=== PATIENT | male | born 1945 ===

== ENCOUNTER 2020-06-14 11:18 | Outpatient (REF) | payer MEDICARE, SELFPAY ==
[2020-06-18 14:21] LABS: Testosterone, Total 495 ng/dL (250-1100)
== END 2020-06-14 11:19 | disposition home or self-care (01) ==
LOC: HO.LAB 11:18
PROVIDERS: PCP Internal Medicine Geriatric Medicine; Visit Provider Urology
DX: E29.1 Testicular hypofunction (principal)
CPT/HCPCS: 84403

== ENCOUNTER → 2020-07-23 14:14 | Outpatient (BNVA) | payer MEDICARE, SELFPAY | PROVIDERS: PCP Internal Medicine Geriatric Medicine; Referring Provider Internal Medicine Geriatric Medicine; Visit Provider Urology | DX: Z76.89 Persons encountering health services in other specified circumstances (principal) | CPT/HCPCS: Q3014 ==

== ENCOUNTER → 2020-09-20 10:05 | Outpatient (BNV) | payer MEDICARE, SELFPAY | PROVIDERS: PCP Internal Medicine Geriatric Medicine; Visit Provider Internal Medicine | DX: D64.9 Anemia, unspecified (principal); D72.10 Eosinophilia, unspecified; M06.9 Rheumatoid arthritis, unspecified | CPT/HCPCS: 99212; 99213; 99214; G2211 ==

== ENCOUNTER → 2020-10-02 09:14 | Outpatient (BNVA) | payer MEDICARE, SELFPAY | PROVIDERS: PCP Internal Medicine Geriatric Medicine; Visit Provider Physician Assistant | DX: Z76.89 Persons encountering health services in other specified circumstances (principal) | CPT/HCPCS: 99212 ==

== ENCOUNTER 2020-10-09 12:22 | Outpatient (REF) | payer MEDICARE, SELFPAY ==
[2020-10-09 14:02] LABS: MANUAL DIFF FLAG NO
[2020-10-09 14:20] LABS: Basophils Absolute Auto 0.2 X10*3/uL (0.0-0.2); Basophils Percent Auto 1.1 % (0-2); Eosinophils Absolute Auto 2.7 X10*3/uL (0.0-0.4); Eosinophils Percent Auto 19.2 % (0-4); Hematocrit 34.5 % (42-52); Hemoglobin 11.2 g/dl (14.0-18.0); Imm Gran Abs Auto 0.06 X10*3/uL (0.00-0.03); Imm Gran Pct Auto 0.4 % (0.0-0.4); Lymphocytes Absolute Auto 2.7 X10*3/uL (1.2-4.9); Lymphocytes Percent Auto 18.9 % (20-40); Mean Corpuscular HGB Conc 32.5 g/dl (31.0-36.0); Mean Corpuscular Hemoglobin 27.2 pg (27.0-33.0); Mean Corpuscular Volume 83.7 fL (80-98); Mean Platelet Volume 10.6 fL (9.4-12.4); Monocytes Absolute Auto 1.1 X10*3/uL (0.1-1.2); Monocytes Percent Auto 7.8 % (2-11); Neutrophils Absolute Auto 7.4 X10*3/uL (2.0-8.3); Neutrophils Percent Auto 52.6 % (45-73); Platelet Count 320 X10*3/uL (160-400); Red Blood Count 4.12 X10*6/uL (4.60-5.80); Red Cell Distribution Width 15.2 % (11.0-16.0)
[2020-10-09 14:41] LABS: Alanine Aminotransferase 36 U/L (0-40); Albumin Level 4.4 g/dL (3.5-5.0); Alkaline Phosphatase 102 U/L (39-117); Anion Gap 15 (12-20); Aspartate Amino Transferase 30 U/L (5-37); Bilirubin Total 0.4 mg/dL (0.0-1.0); Blood Urea Nitrogen 30 mg/dL (9-16); C Reactive Protein 1.47 mg/dL (< or = 0.50); Calcium 9.8 mg/dL (8.4-10.2); Carbon Dioxide 25 mmol/L (22-29); Chloride 103 mmol/L (96-108); Estimated Glomerular Filt Rate 44; Glucose Random 234 mg/dL (60-115); Potassium 4.2 mmol/L (3.3-5.1); Rheumatoid Factor 140.6 IU/mL (<15.0); Sodium 139 mmol/L (135-145); Total Protein 7.7 g/dL (6.5-8.0)
[2020-10-09 15:13] LABS: PSA,Total (Free>4and<10) 1.54 ng/mL (0.00-4.00)
[2020-10-09 15:29] LABS: Erythrocyte Sedimentation Rate 7 MM/HR (0-15)
[2020-10-10 09:00] LABS: HBS Num1 2.55 mIU/mL (0-7.99); HBc Num1 0.09 S/CO (0.00-0.79); HBsAGNum1 0.15 S/CO (0.00-0.99); Hepatitis B Core Antibody Nonreactive (Nonreactive); Hepatitis B Surface Antigen Negative (Negative); ~Hepatitis B Surface Antibody NONREACTIVE (Nonreactive)
[2020-10-10 09:15] LABS: ~HepC Num1 0.14 S/CO (0.00-0.79); ~Hepatitis C Antibody Nonreactive (Nonreactive)
[2020-10-10 13:33] LABS: Cyclic Citrullinated Peptide <16 UNITS
[2020-10-11 08:18] LABS: Hepatitis A Antibody IgM 0.22 Index (0-0.79); ~Hepatitis A Antibody IgM Nonreactive (Nonreactive)
[2020-10-11 19:32] LABS: TS Negative Control Passed; TS Panel A 0; TS Panel B 2; TS Positive Control Passed; TSpotTB Negative (SeeBelow)
[2020-10-12 13:12] LABS: Testosterone, Total 458 ng/dL (250-1100)
== END 2020-10-09 12:23 | disposition home or self-care (01) ==
LOC: HO.LAB 12:22
PROVIDERS: Urology; PCP Internal Medicine Geriatric Medicine; Visit Provider Student in an Organized Health Care Education/Training Program
DX: M19.012 Primary osteoarthritis, left shoulder (principal); M19.011 Primary osteoarthritis, right shoulder; N40.1 Benign prostatic hyperplasia with lower urinary tract symptoms; N13.8 Other obstructive and reflux uropathy; E29.1 Testicular hypofunction; Z12.5 Encounter for screening for malignant neoplasm of prostate
CPT/HCPCS: 36415; 80053; 84153; 84403; 85025; 85652; 86140; 86200; 86431; 86481; 86704; 86706; 86709; 86803; 87340; 99202

== ENCOUNTER 2020-10-10 10:56 | Outpatient (REF) | payer MEDICARE, SELFPAY ==
--- NOTE | 2020-10-10 11:05 | XR_ITS ---
EXAMINATION: XR HAND, RIGHT CLINICAL INFORMATION: Pain in the joints. COMPARISON: None TECHNIQUE: PA, lateral, and oblique views of the right hand. FINDINGS: No fracture or malalignment. Mild joint space narrowing of the third metacarpophalangeal joint. Small marginal osteophytes are seen throughout the interphalangeal joints as well as at the third metacarpophalangeal joint. Mild diffuse soft tissue swelling. XR/XR hand RT min 3V IMPRESSION: Mild degenerative changes throughout the hand.
--- NOTE | 2020-10-10 11:05 | XR_ITS ---
EXAMINATION: XR HIP, LEFT CLINICAL INFORMATION: Pain in the joints. COMPARISON: 04/26/2014 TECHNIQUE: Two views of the left hip. FINDINGS: No fracture or dislocation. The left hip is well aligned. Mild joint space narrowing with subchondral sclerosis and small osteophytes. Corticated ossific density along the acetabular rim is unchanged from the remote prior study. The visualized left hemipelvis is intact. XR/XR hip LT min 2V IMPRESSION: Mild degenerative changes of the left hip.
--- NOTE | 2020-10-10 11:05 | XR_ITS ---
EXAMINATION: XR SHOULDER, RIGHT CLINICAL INFORMATION: Pain COMPARISON: None TECHNIQUE: AP external rotation, Grashey, scapular Y, and axillary views of the right shoulder. FINDINGS: There is no fracture or dislocation. The glenohumeral joint is well aligned. The joint space is maintained with prominent osteophyte formation. Narrowing of the subacromial space. Moderate hypertrophic degenerative change of the acromioclavicular joint. The visualized lung is clear. The visualized ribs are intact. XR/XR shoulder RT min 2V IMPRESSION: Moderate degenerative changes of the right shoulder.
== END 2020-10-10 10:57 | disposition home or self-care (01) ==
LOC: HO.LAB 10:56
PROVIDERS: PCP Internal Medicine Geriatric Medicine; Visit Provider Student in an Organized Health Care Education/Training Program
DX: M25.50 Pain in unspecified joint (principal)
CPT/HCPCS: 73030; 73130; 73502

== ENCOUNTER 2020-11-20 09:56 | Day surgery (SDC) | payer MEDICARE, SELFPAY ==
[2020-11-14 12:57] VITALS: BMI 29.7
--- NOTE | 2020-11-19 08:56 | HO.ANESPROP2 ---
Documented by User: Latonya Banerjee 11/19/20 08:58 HPI - Anesthesia Eval Consult details Narrative: 75yo M for Upper Endoscopy and Colonoscopy PMFSH Active Problems Active Problems: All Active Problems (Updated 11/14/20 @ 12:51 by Edith Sarmiento) Hypogonadism in male (Acute) Anemia (Chronic) Colonoscopy planned (Acute) Joint pain (Acute) Acid reflux (Acute) Past Medical History Medical History (Updated 11/19/20 @ 09:00 by Latonya Banerjee) Acid reflux Ambulates with cane COVID-19 vaccine series started Diabetes Eosinophilia History of depression Leukocytosis Normocytic anemia Rheumatoid arthritis Family History Family History Mother Diabetes Father No problems noted. Surgical History Surgical History (Updated 11/14/20 @ 12:49 by Edith Sarmiento) History of back surgery History of cataract extraction History of colonoscopy History of surgical removal of lesion Social History Social History (Updated 11/14/20 @ 12:47 by Edith Sarmiento) Household Members: Spouse Alcohol intake: never Smoking Status: Former smoker Use of substances other than those prescribed or required for medical reasons: No Have you been hit, kicked, punched, or otherwise hurt by someone within the past year? If so, by whom?: No Advance Directives: No Advance Directives Information Provided: No Advance Directives on File: No Meds Allergies Allergy/AdvReac Type Severity Reaction Status Date / Time aspirin Allergy Unknown Gastrointestinal Verified 10/09/20 12:26 Upset Home Medications Medication Instructions Recorded Confirmed Last Taken Type blood sugar diagnostic #10 ea 07/23/20 10/02/20 Unknown History buspirone 5 mg tablet 5 mg PO DAILY MRX1 07/23/20 11/14/20 Unknown History chlorthalidone 50 mg tablet 50 mg PO DAILY 07/23/20 11/14/20 Unknown History lisinopril 40 mg tablet 40 mg PO DAILY 07/23/20 11/14/20 Unknown History omeprazole 20 mg capsule,delayed 20 mg PO DAILY MRX1 07/23/20 11/14/20 Unknown History release pravastatin 20 mg tablet 20 mg PO DAILY 07/23/20 11/14/20 Unknown History acetaminophen 500 mg tablet 500 mg PO Q6-8H PRN 10/02/20 11/14/20 Unknown History diclofenac sodium 1 % topical gel g TOPICAL 10/02/20 10/02/20 Unknown History hzsvhqnpizrx-oayctbow-rjdhfl tablet 1 tab PO DAILY 10/02/20 11/14/20 Unknown History pregabalin 225 mg capsule 225 mg PO DAILY 10/02/20 11/14/20 Unknown History tamsulosin 0.4 mg capsule 0.4 mg PO DAILY@1700 10/02/20 11/14/20 Unknown History dulaglutide [Trulicity] 1 mg SUBCUT QWEEK 11/14/20 11/14/20 Unknown History Exam Exam Date and Time: November 19, 2020 0856 Height,Weight and Vital Signs: Height 4 ft 11 in Weight 66.678 kg Pertinent Lab Results Pertinent Lab Results: Laboratory Tests 10/09/20 10/09/20 13:30 13:30 WBC 14.0 H Hgb 11.2 L Hct 34.5 L Plt Count 320 Sodium 139 Potassium 4.2 Chloride 103 Carbon Dioxide 25 BUN 30 H Creatinine 1.54 H Assessment and Plan Assessment Anesthesia Assessment: Chart Reviewed Documented by User: Shanti Cordova 11/20/20 10:15 [facility] Past Medical History Medical History (Updated 11/19/20 @ 09:00 by Latonya Banerjee) Acid reflux Ambulates with cane COVID-19 vaccine series started Diabetes Eosinophilia History of depression Leukocytosis Normocytic anemia Rheumatoid arthritis Family History Family History Mother Diabetes Father No problems noted. Surgical History Surgical History (Updated 11/14/20 @ 12:49 by Edith Sarmiento) History of back surgery History of cataract extraction History of colonoscopy History of surgical removal of lesion Social History Social History (Updated 11/14/20 @ 12:47 by Edith Sarmiento) Household Members: Spouse Alcohol intake: never Smoking Status: Former smoker Use of substances other than those prescribed or required for medical reasons: No Have you been hit, kicked, punched, or otherwise hurt by someone within the past year? If so, by whom?: No Advance Directives: No Advance Directives Information Provided: No Advance Directives on File: No Meds Allergies Allergy/AdvReac Type Severity Reaction Status Date / Time aspirin Allergy Unknown Gastrointestinal Verified 10/09/20 12:26 Upset Home Medications Medication Instructions Recorded Confirmed Last Taken Type blood sugar diagnostic #10 ea 07/23/20 10/02/20 Unknown History buspirone 5 mg tablet 5 mg PO DAILY MRX1 07/23/20 11/14/20 Unknown History chlorthalidone 50 mg tablet 50 mg PO DAILY 07/23/20 11/14/20 Unknown History lisinopril 40 mg tablet 40 mg PO DAILY 07/23/20 11/14/20 Unknown History omeprazole 20 mg capsule,delayed 20 mg PO DAILY MRX1 07/23/20 11/14/20 Unknown History release pravastatin 20 mg tablet 20 mg PO DAILY 07/23/20 11/14/20 Unknown History acetaminophen 500 mg tablet 500 mg PO Q6-8H PRN 10/02/20 11/14/20 Unknown History diclofenac sodium 1 % topical gel g TOPICAL 10/02/20 10/02/20 Unknown History awcccnwhqanp-lbzqqxdf-frxegs tablet 1 tab PO DAILY 10/02/20 11/14/20 Unknown History pregabalin 225 mg capsule 225 mg PO DAILY 10/02/20 11/14/20 Unknown History tamsulosin 0.4 mg capsule 0.4 mg PO DAILY@1700 10/02/20 11/14/20 Unknown History dulaglutide [Trulicity] 1 mg SUBCUT QWEEK 11/14/20 11/14/20 Unknown History Exam Airway Mallampati Class: II TM Dist: >3cm Neck ROM: Full Heart: RRR Lungs: CTA BL Assessment and Plan Assessment Anesthesia Assessment: Anesthesia Plan Discussed and Chart Reviewed Final Anesthetic Review NPO: Yes ASA Class: II Final Preanesthetic Review: No Changes in Pt Med Stat and Consent Obtained/Reviewed Patient Risk: Intermediate Procedure Risk: Intermediate Anesthetic Plan Anesthetic Plan: MAC: Disposition: Standard PACU
[2020-11-20 10:20] VITALS: BP 155/77; PULSE 71; RESP 18; TEMP 36.7; O2SAT 98
[2020-11-20] MEDS: Lactated Ringers 1,000 ML 100 ML IVCONT (10:27)
[2020-11-20 10:31] LABS: Glucose, Whole Blood 146 mg/dL (60-115)
--- NOTE | 2020-11-20 10:35 | PC.NURSE ---
[facility] utilized for [facility]SS admission.
--- NOTE | 2020-11-20 11:03 | MHC.SHP ---
Pre-Procedural Eval Section B Chief Complaint: hx colonic polys,reflux disease Relevant Family History (Specify if Yes): No Relevant Social History: None Present Medications: see Short Stay Collaborative assessment Medical History: Significant History (Acid reflux Ambulates with cane COVID-19 vaccine series started Diabetes Eosinophilia History of depression Leukocytosis Normocytic anemia Rheumatoid arthritis) History of Previous Operations: Relevant previous surgery/procedure and date(s) (cataract, back surgery) Allergies: Allergies Allergy/AdvReac Type Severity Reaction Status Date / Time aspirin Allergy Unknown Gastrointestinal Verified 10/09/20 12:26 Upset Review of Systems Sugical H&P ROS: Negative: Constitution, Cardiovascular, Respiratory, Neurological, Psychiatric, Hem-Onc, Allergic/Immunologic, Gastrointestinal, Genitourinary, Musculoskeletal, Integumentary, Endocrine and Eyes/Ears/Nose/Throat Exam Surgical H&P Exam: Normal: HEENT, Normal: Heart, Normal: Lungs, Normal: Extremities, Normal: Abdomen, Normal: Skin and Normal: Neurological Plan Diagnosis/Plan: Unchanged I have reviewed the history and physical and performed a pertinent physical examination on my patient. No changes have occurred unless specified.
--- NOTE | 2020-11-20 11:04 | PM.OP ---
Brief Operative Note Date of Service: 11/20/20 Pre-op diagnosis: anemia, GERD Post-op diagnosis: same Procedure: see op note Surgeon: Haris Shah MD Anesthesia: MAC Estimated blood loss (mL): 0 Condition: stable Disposition: PACU
--- NOTE | 2020-11-20 11:05 | P.OP_ITS ---
Operative Note Operative Note Date of Service: 11/20/20 Narrative: Operative Information Procedure Description: EGD, Colonoscopy FLEXIBLE TRANSORAL UPPER GASTROINTESTINAL ENDOSCOPY AND COLONOSCOPY PROCEDURE NOTE UPPER ENDOSCOPY Consent: Indications for the procedure and potential complications of bleeding, perforation, reaction to medications and missed diagnosis were discussed with the patient and informed consent was obtained. Instrument: Olympus GIF H 190 J mid size upper endoscope Monitoring: Vital signs and clinical assessment, continuous EKG monitoring, Pulse oximetry, Carbon Dioxide monitoring and blood pressure monitoring were done throughout the procedure. Procedure: The patient was placed in the left lateral decubitis position and pre-procedure medications were administered and a bite block was placed. The endoscope was inserted into the mouth and advanced under direct vision to the third part of duodenum. A careful inspection was made as the upper endoscope was withdrawn including a retroflexed examination of the proximal stomach; Findings and interventions are described below. Findings: Larynx:normal Esophagus: GE junction at 36 cm, diaphragm hiatus at 36 cm, normal mucosa Stomach: Patchy erythema. Biopsies were obtained. Grade 2 flap valve on retroflexed examination of the cardia. Duodenum: Normal bulb and descending duodenum, bx taken Intervention: Biopsies as noted above COLONOSCOPY Instrument: Olympus variable stiffness pediatric scope 190L Colonoscopy Monitoring: Vital signs and clinical assessment, continuous EKG monitoring, Pulse oximetry, Carbon Dioxide monitoring and blood pressure monitoring were done throughout the procedure. Colon withdrawal time was 17 minutes. Procedure: The patient was placed in the left lateral decubitis position and pre-procedure medications were administered. After a digital rectal examination of the ano-rectum, the video colonoscope was inserted into the rectum and advanced through the colon to the cecum. The colonoscope was slowly withdrawn in a retrograde panoramic fashion and the colon mucosa was carefully examined including a retroflexed view of the rectum. Findings and interventions are described below. Procedure Difficulty:moderate, looping Findings: Terminal Ileum-unable to fully intubate due to lopping, only tip of TI seen appeared normal Severe hassan diverticulosis with wide mouthed tics. There appeared to be a large diverticulum in the proximal rectum as well A 9-10 mm sessile polyp removed with cold snare from transverse colon. rectum: Retroflexion with small internal hemorrhoids, grade I Anorectum - normal Colon preparation: [place]ford Bowel Preparation Scale Right colon; 1 Transverse colon: 1 Left colon; 1 (0 = Unprepared colon segment with mucosa not seen due to solid stool that cannot be cleared. 1 = Portion of mucosa of the colon segment seen, but other areas of the colon segment not well seen due to staining, residual stool and/or opaque liquid. 2 = Minor amount of residual staining, small fragments of stool and/or opaque liquid, but mucosa of colon segment seen well. 3 = Entire mucosa of colon segment seen well with no residual staining, small fragments of stool or opaque liquid) Impression and Post Procedure Diagnosis: Endoscopy Findings: gastritis Colonoscopy Findings: severe diverticulosis polyp internal hemorrhoids Plan: Await Pathology results Repeat Colonoscopy in 6-12 months with compliance with prep, review instructions, may need 2 d prep High fiber diet leaflet avoid straining at stool, epsom salts and sitz bath, anusol supps or cream prn Above findings were reviewed with the patient and relevant handouts were provided if indicated.
[2020-11-20 12:00] VITALS: BP 101/72; PULSE 63; RESP 16; TEMP 36.1; O2SAT 96
[2020-11-20 12:15] VITALS: BP 127/76; PULSE 61; RESP 16; TEMP 36.1; O2SAT 98
== END 2020-11-20 12:58 | disposition home or self-care (01) ==
PROVIDERS: PCP Internal Medicine Geriatric Medicine; Visit Provider Internal Medicine Gastroenterology
PROC: (CPT 45385; principal; 2020-11-20 11:10)
DX: Z12.11 Encounter for screening for malignant neoplasm of colon (principal); Z86.010 Personal history of colon polyps; K51.40 Inflammatory polyps of colon without complications; K57.30 Diverticulosis of large intestine without perforation or abscess without bleeding; K64.0 First degree hemorrhoids; K21.00 Gastro-esophageal reflux disease with esophagitis, without bleeding; K29.70 Gastritis, unspecified, without bleeding; K44.9 Diaphragmatic hernia without obstruction or gangrene; E11.9 Type 2 diabetes mellitus without complications; D64.9 Anemia, unspecified; M06.9 Rheumatoid arthritis, unspecified; Z79.899 Other long term (current) drug therapy; Z88.8 Allergy status to other drugs, medicaments and biological substances; Z87.891 Personal history of nicotine dependence
CPT/HCPCS: 45385; 43239; 82947; 88305; 88342

== ENCOUNTER 2020-11-25 13:00 | Outpatient (RCR) | payer MEDICARE, SELFPAY ==
--- NOTE | 2021-04-28 08:43 | MHC.PT.DC ---
[facility] [place] Office [place] Office [place] [facility] [address] Marizol Scott [address] [phone] F: [phone] F: [phone] F: [phone] F: [phone] Physical Therapy Discharge Report Diagnosis: B shoulder pain. Date of Surgery: Date of Evaluation: 10/30/20 Date of Discharge: 04/28/21 Treatments to Date: 7 Cancellations to Date: 0 No Shows to Date: 0 Discharge Status: Improved Function Independent with HEP Discharge Summary: Pt had made improvements of his shoulder pain with some PM pain persisting; Pt though did not attend his final visit for DC assessment. Electronically signed by: Edd Leo PT. Please sign and return to therapist. Thank you for your referral.
== END 2021-04-28 08:44 | disposition home or self-care (01) ==
LOC: HO.PTCHIC 13:00
PROVIDERS: PCP Internal Medicine Geriatric Medicine; Visit Provider Student in an Organized Health Care Education/Training Program
DX: M25.50 Pain in unspecified joint (principal)
CPT/HCPCS: 97110; 97161

== ENCOUNTER → 2020-11-29 13:25 | Outpatient (BNVA) | payer MEDICARE, SELFPAY | PROVIDERS: PCP Internal Medicine Geriatric Medicine; Visit Provider Student in an Organized Health Care Education/Training Program | DX: M25.50 Pain in unspecified joint (principal); R76.8 Other specified abnormal immunological findings in serum | CPT/HCPCS: 99212 ==

== ENCOUNTER → 2020-12-03 13:19 | Outpatient (BNVA) | payer MEDICARE, SELFPAY | PROVIDERS: PCP Internal Medicine Geriatric Medicine; Visit Provider Physician Assistant | DX: K21.9 Gastro-esophageal reflux disease without esophagitis (principal); K59.09 Other constipation; K22.70 Barrett's esophagus without dysplasia | CPT/HCPCS: 99212 ==

== ENCOUNTER 2021-03-04 09:45 | Outpatient (REF) | payer MEDICARE, SELFPAY ==
[2021-03-04 10:29] LABS: Hematocrit 34.8 % (42-52); Mean Corpuscular HGB Conc 31.6 g/dl (31.0-36.0); Mean Corpuscular Hemoglobin 25.6 pg (27.0-33.0); Mean Corpuscular Volume 80.9 fL (80-98); Mean Platelet Volume 9.9 fL (9.4-12.4); Platelet Count 350 X10*3/uL (160-400); Red Cell Distribution Width 14.4 % (11.0-16.0); White Blood Count 12.2 X10*3/uL (4.8-10.8)
[2021-03-04 11:18] LABS: Prostate Specific Antigen 2.18 ng/mL (<0.05-4.0)
== END 2021-03-04 09:46 | disposition home or self-care (01) ==
LOC: HO.10HDL 09:45
PROVIDERS: Visit Provider Urology
DX: Z12.5 Encounter for screening for malignant neoplasm of prostate (principal); E29.1 Testicular hypofunction
CPT/HCPCS: 36415; 84153; 85027

== ENCOUNTER → 2021-03-11 14:32 | Outpatient (BNVA) | payer MEDICARE, SELFPAY | PROVIDERS: PCP Internal Medicine Geriatric Medicine; Visit Provider Urology | DX: Z13.89 Encounter for screening for other disorder (principal) | CPT/HCPCS: 99212 ==

== ENCOUNTER 2021-03-21 09:28 | Outpatient (REF) | payer MEDICARE, SELFPAY ==
--- NOTE | ~2021-03-21 | XR_ITS ---
EXAMINATION: XR KNEE STANDING, BILATERAL XR KNEE, RIGHT CLINICAL INFORMATION: Right knee pain. COMPARISON: None TECHNIQUE: AP bilateral knee 1 view. Right knee 2 views. FINDINGS: AP BILATERAL KNEE: There is loss of medial compartment joint space both knees. No visible acute fracture, dislocation or bony erosive changes. The soft tissues are normal. RIGHT KNEE: There are fyoxi-lt-ogcewgzu-sized anterior superior and anterior inferior enthesophytes along the patella and small spurring along posterior superior patella. There is mild joint effusion. No loose body seen. No fracture or dislocation. XR/XR knee RT 2V IMPRESSION: Mild degenerative changes medial compartment both knees. There is parapatellar, peripatellar enthesophytes with mild superior joint effusion. No loose bodies, acute fracture or dislocation seen.
--- NOTE | ~2021-03-21 | XR_ITS ---
EXAMINATION: XR KNEE STANDING, BILATERAL XR KNEE, RIGHT CLINICAL INFORMATION: Right knee pain. COMPARISON: None TECHNIQUE: AP bilateral knee 1 view. Right knee 2 views. FINDINGS: AP BILATERAL KNEE: There is loss of medial compartment joint space both knees. No visible acute fracture, dislocation or bony erosive changes. The soft tissues are normal. RIGHT KNEE: There are avzxn-as-lwljbpfo-sized anterior superior and anterior inferior enthesophytes along the patella and small spurring along posterior superior patella. There is mild joint effusion. No loose body seen. No fracture or dislocation. XR/XR knee standing BI IMPRESSION: Mild degenerative changes medial compartment both knees. There is parapatellar, peripatellar enthesophytes with mild superior joint effusion. No loose bodies, acute fracture or dislocation seen.
== END 2021-03-21 09:29 | disposition home or self-care (01) ==
LOC: HO.HOSX 09:28
PROVIDERS: Visit Provider Orthopaedic Surgery
DX: M25.561 Pain in right knee (principal)
CPT/HCPCS: 73560; 73565; 99202

== ENCOUNTER 2021-05-09 18:26 | Emergency (ER) | payer MEDICARE, SELFPAY ==
--- NOTE | ~2021-05-09 | CT_ITS ---
EXAMINATION: CT HEAD WITHOUT CONTRAST CLINICAL INFORMATION: Acute dizziness COMPARISON: 03/24/2016 TECHNIQUE: Contiguous axial imaging was performed from the skull base to vertex without intravenous administration of contrast. This CT examination was performed using dose optimization techniques as appropriate, variously including the following: *Automated exposure control *Adjustment of mA and/or kV according to patient size (this includes techniques or standardized protocols for targeted exams where dose is matched to indication/reason for exam; i.e. extremities or head) *Use of iterative reconstruction technique DLP: 667 mGy-cm FINDINGS: There is no evidence of acute intracranial hemorrhage or territorial infarction. No abnormal mass effect or midline shift is seen. Reyes to white matter differentiation is well preserved. No extra-axial fluid collections are identified. The ventricles are normal in size. There is no abnormal attenuation within the brain parenchyma. The osseous structures and soft tissues are normal. The mastoid air cells and visualized portions of the paranasal sinuses are well aerated. CT/CT head/brain wo con IMPRESSION: No acute intracranial pathology.
[2021-05-09 18:37] VITALS: BP 125/61; PULSE 66; RESP 18; TEMP 36.9; O2SAT 97; BMI 27.3
[2021-05-09 18:56] LABS: Glucose, Whole Blood 169 mg/dL (60-115)
--- NOTE | 2021-05-09 20:41 | ED_ITS ---
HPI - Dizziness General Chief Complaint: Dizziness Stated Complaint: dizzines Time Seen by Provider: 05/09/21 20:41 Source: patient and family Mode of arrival: ambulatory Limitations: no limitations History of Present Illness HPI Narrative: Patient with history of vertigo few years ago complaining of dizziness for last 3 days off and on specially when ambulate and move his head to the right side no nausea no vomiting no headache no fever or chills no history of fall no tinnitus or earache Related Data Home Medications Medication Instructions Recorded Confirmed blood sugar diagnostic #10 ea 07/23/20 04/30/21 buspirone 5 mg tablet 5 mg PO DAILY MRX1 07/23/20 04/30/21 chlorthalidone 50 mg tablet 50 mg PO DAILY 07/23/20 04/30/21 lisinopril 40 mg tablet 40 mg PO DAILY 07/23/20 04/30/21 omeprazole 20 mg capsule,delayed 20 mg PO DAILY MRX1 07/23/20 04/30/21 release pravastatin 20 mg tablet 20 mg PO DAILY 07/23/20 04/30/21 acetaminophen 500 mg tablet 500 mg PO Q6-8H PRN 10/02/20 04/30/21 diclofenac sodium 1 % topical gel 1 g TOPICAL DAILY 10/02/20 04/30/21 quwfkccdgedb-suihoppc-zbmjeo tablet 1 tab PO DAILY 10/02/20 04/30/21 pregabalin 225 mg capsule 225 mg PO DAILY 10/02/20 04/30/21 dulaglutide 0.75 mg/0.5 mL 1 mg SUBCUT QWEEK 11/14/20 04/30/21 subcutaneous pen injector (Trulicity) dulaglutide 1.5 mg/0.5 mL 1.5 mg SUBCUT QWEEK 11/29/20 04/30/21 subcutaneous pen injector (Trulicity) aspirin 81 mg tablet,delayed 81 mg PO DAILY 03/11/21 04/30/21 release clotrimazole 1 % topical cream 1 appl TOPICAL BEDTIME 03/11/21 04/30/21 fluoride (sodium) 1.1 % dental 1.1 appl PO DAILY 03/21/21 04/30/21 paste Previous Rx's Medication Instructions Recorded bisacodyl 5 mg tablet,delayed 10 mg PO ONCE 1 Days #2 tab 12/03/20 release (Dulcolax (bisacodyl)) docusate sodium 100 mg capsule 200 mg PO BEDTIME #60 cap 12/03/20 (Colace) pantoprazole 40 mg tablet,delayed 40 mg PO DAILY 30 Days #30 tab 12/03/20 release polyethylene glycol 3350 17 17 g PO DAILY #510 g 12/03/20 gram/dose oral powder (Miralax) polyethylene glycol 3350 17 238 g PO ONCE 1 Days #238 g 12/03/20 gram/dose oral powder (Miralax) tamsulosin 0.4 mg capsule 0.4 mg PO BID 90 Days #180 cap 02/21/21 testosterone 20.25 mg/1.25 gram 40.5 mg TRANSDERMAL DAILY 30 Days 03/11/21 (1.62 %) transdermal gel pump #75 g ferrous sulfate 325 mg (65 mg 325 mg PO DAILY #60 tab 04/30/21 iron) tablet (Iron (ferrous sulfate)) meclizine 25 mg tablet 25 mg PO TID PRN #20 tab 05/09/21 Allergies Allergy/AdvReac Type Severity Reaction Status Date / Time aspirin AdvReac Unknown Gastrointestinal Verified 05/09/21 18:37 Upset Review of Systems Review of Systems: Yes all other systems are reviewed and are negative PMFSH Past Medical History Medical History Acid reflux Ambulates with cane Chronic constipation COVID-19 vaccine series started Diabetes Eosinophilia History of depression Leukocytosis Normocytic anemia Rheumatoid arthritis Surgical History History of back surgery History of cataract extraction History of colonoscopy History of surgical removal of lesion Family History Family History Mother Diabetes Father No problems noted. Social History Social History Household Members: Spouse Alcohol intake: never Advance Directives: No Advance Directives Information Provided: No Current occupational status: retired Physical Exam Vital Signs: Vital Signs: Last Vital Signs Temp 98.4 F 05/09/21 18:37 Pulse 66 05/09/21 18:37 Resp 18 05/09/21 18:37 BP 125/61 05/09/21 18:37 Pulse Ox 97 05/09/21 18:37 Body Mass Index 27.3 Appearance: Alert. Oriented X3. No acute distress. Eyes: PERRLA, No Nystagmus ENT: Pharynx normal. Oral Mucosa moist Neck: Normal inspection. Neck supple. CVS: Normal heart rate and rhythm. Pulses normal. Respiratory: No respiratory distress. Equal air entry bilateral, no wheezing/rales/rhonchi Abdomen: Soft and nontender. Bowel sounds are present, no mass palpable, no CVA tenderness Skin: Skin warm and dry. Normal skin color. Normal skin turgor. Extremities: No lower extremity edema. No calf tenderness Neuro: Oriented X 3. No motor deficit. No sensory deficit.No cerebellar signs , cranial nerves II-XII intact MDM - Dizziness MDM Narrative Medical decision making narrative: Patient had CT is negative able to ambulate steady gait after meclizine dizziness improved clinically patient has BPPV Differential Diagnosis Differential diagnosis: Likely benign paroxysmal positional vertigo Lab Data Labs: Lab Results 05/09/21 Range/Units 18:50 POC Glucose 169 H (60-115) mg/dL Discharge Plan Discharge Clinical Impression: Benign paroxysmal positional vertigo Patient Disposition: Home, Self-Care Instructions: Benign Paroxysmal Positional Vertigo (ED) Additional Instructions: Care and cautions as advised Take meclizine 1 tablet every 8 hours as needed for severe dizziness Prescriptions: New meclizine 25 mg tablet 25 mg PO TID PRN (Reason: dizziness) Qty: 20 RF: 0 No Action tamsulosin 0.4 mg capsule 0.4 mg PO BID 90 Days Qty: 180 RF: 2 testosterone 20.25 mg/1.25 gram (1.62 %) gel in metered-dose pump 40.5 mg transdermal DAILY 30 Days Qty: 75 RF: 5 ferrous sulfate [Iron (ferrous sulfate)] 325 mg (65 mg iron) Tablet 325 mg PO DAILY Qty: 60 RF: 3 Trulicity 0.75 mg/0.5 mL pen injector 1 mg subcut QWEEK RF: 0 diclofenac sodium 1 % gel 1 g topical DAILY RF: 0 pregabalin 225 mg capsule 225 mg PO DAILY RF: 0 Cerovite Senior Tablet 1 tab PO DAILY RF: 0 acetaminophen 500 mg tablet 500 mg PO Q6-8H PRN (Reason: Pain) RF: 0 aspirin 81 mg tablet,delayed release (DR/EC) 81 mg PO DAILY RF: 0 clotrimazole 1 % cream 1 appl topical BEDTIME RF: 0 fluoride (sodium) 1.1 % paste 1.1 appl PO DAILY RF: 0 pravastatin 20 mg tablet 20 mg PO DAILY RF: 0 lisinopril 40 mg tablet 40 mg PO DAILY RF: 0 omeprazole 20 mg capsule,delayed release(DR/EC) 20 mg PO DAILY MRX1 RF: 0 chlorthalidone 50 mg tablet 50 mg PO DAILY RF: 0 (DME) FreeStyle Lite Strips Strip See Rx Instructions ea Not Applicable .MEDSUPPLY Qty: 10 RF: 0 buspirone 5 mg tablet 5 mg PO DAILY MRX1 RF: 0 bisacodyl [Dulcolax (bisacodyl)] 5 mg tablet,delayed release (DR/EC) 10 mg PO ONCE 1 Days Qty: 2 RF: 0 polyethylene glycol 3350 [Miralax] 17 gram/dose powder 238 g PO ONCE 1 Days Qty: 238 RF: 0 pantoprazole 40 mg tablet,delayed release (DR/EC) 40 mg PO DAILY 30 Days Qty: 30 RF: 11 polyethylene glycol 3350 [Miralax] 17 gram/dose powder 17 g PO DAILY Qty: 510 RF: 2 docusate sodium [Colace] 100 mg capsule 200 mg PO BEDTIME Qty: 60 RF: 5 Trulicity 1.5 mg/0.5 mL pen injector 1.5 mg subcut QWEEK RF: 0 Interventions: ED Discharge Assessment Last Done: 05/09/21 23:07 Discharge Date/Time: 05/09/21 23:10 Print Language: Tristanian
[2021-05-09] MEDS: Meclizine HCl 25 MG TABLET 50 MG PO (21:16)
== END 2021-05-09 23:10 | disposition home or self-care (01) ==
PROVIDERS: Emergency Provider Internal Medicine; PCP Internal Medicine Geriatric Medicine
DX: H81.10 Benign paroxysmal vertigo, unspecified ear (principal); E11.9 Type 2 diabetes mellitus without complications; Z79.82 Long term (current) use of aspirin; Z79.4 Long term (current) use of insulin; Z79.899 Other long term (current) drug therapy
CPT/HCPCS: 70450; 82947; 99284

== ENCOUNTER 2021-06-03 08:33 | Outpatient (REF) | payer MEDICARE, SELFPAY | END 2021-06-03 08:34 | disposition home or self-care (01) | LOC: HO.HOSX 08:33 | PROVIDERS: Visit Provider Nurse Practitioner Family | DX: M25.461 Effusion, right knee (principal); M25.50 Pain in unspecified joint; R76.8 Other specified abnormal immunological findings in serum | CPT/HCPCS: 20610; 87071; 87073; 87205; 89060; 99202; 99212; J1040 ==

== ENCOUNTER 2021-08-14 09:40 | Outpatient (REF) | payer MEDICARE, SELFPAY | END 2021-08-14 09:41 | disposition home or self-care (01) | LOC: HO.LNP 09:40 | PROVIDERS: PCP Internal Medicine Geriatric Medicine; Visit Provider Physician Assistant | DX: M25.461 Effusion, right knee (principal); M25.561 Pain in right knee | CPT/HCPCS: 20610; 87071; 87073; 87205; 89060; 99212; J1020 ==

== ENCOUNTER 2021-08-27 11:00 | Outpatient (RCR) | payer MEDICARE, SELFPAY | END 2021-10-31 09:45 | disposition home or self-care (01) | LOC: HO.PTCHIC 11:00 | PROVIDERS: PCP Internal Medicine Geriatric Medicine; Visit Provider Emergency Medicine | DX: M25.561 Pain in right knee (principal) | CPT/HCPCS: 97110; 97140; 97162 ==

== ENCOUNTER 2021-09-16 13:46 | Outpatient (REF) | payer MEDICARE, SELFPAY ==
[2021-09-16 15:00] LABS: MANUAL DIFF FLAG NO
[2021-09-16 15:08] LABS: Hemoglobin 11.6 g/dl (14.0-18.0); Mean Platelet Volume 9.5 fL (9.4-12.4)
[2021-09-16 15:15] LABS: Basophils Absolute Auto 0.1 X10*3/uL (0.0-0.2); Basophils Percent Auto 0.9 % (0-2); Eosinophils Absolute Auto 0.6 X10*3/uL (0.0-0.4); Eosinophils Percent Auto 5.9 % (0-4); Hematocrit 36.8 % (42.0-52.0); Imm Gran Abs Auto 0.05 X10*3/uL (0.00-0.03); Imm Gran Pct Auto 0.5 % (0.0-0.4); Lymphocytes Absolute Auto 1.8 X10*3/uL (1.2-4.9); Lymphocytes Percent Auto 17.2 % (20-40); Mean Corpuscular HGB Conc 31.5 g/dl (31.0-36.0); Mean Corpuscular Hemoglobin 25.7 pg (27.0-33.0); Mean Corpuscular Volume 81.6 fL (80.0-98.0); Monocytes Absolute Auto 0.9 X10*3/uL (0.1-1.2); Monocytes Percent Auto 9.3 % (2-11); Neutrophils Absolute Auto 6.7 x10*3/uL (2.0-8.3); Neutrophils Percent Auto 66.2 % (45-73); Platelet Count 387 X10*3/uL (160-400); Red Blood Count 4.51 X10*6/uL (4.60-5.80); White Blood Count 10.2 X10*3/uL (4.8-10.8)
[2021-09-16 15:35] LABS: Alanine Aminotransferase 14 U/L (0-40); Albumin Level 4.2 g/dL (3.5-5.0); Alkaline Phosphatase 92 U/L (39-117); Anion Gap 12 (12-20); Aspartate Amino Transferase 15 U/L (5-37); Bilirubin Total 0.3 mg/dL (0.0-1.0); Blood Urea Nitrogen 22 mg/dL (9-16); C Reactive Protein 1.51 mg/dL (< or = 0.50); Calcium 9.6 mg/dL (8.4-10.2); Carbon Dioxide 24 mmol/L (22-29); Chloride 108 mmol/L (96-108); Estimated Glomerular Filt Rate 48; Glucose Random 193 mg/dL (60-115); Potassium 4.2 mmol/L (3.3-5.1); Sodium 140 mmol/L (135-145); Total Protein 7.6 g/dL (6.5-8.0)
[2021-09-16 15:40] LABS: Uric Acid 6.4 mg/dL (3.4-7.0)
[2021-09-16 16:09] LABS: Erythrocyte Sedimentation Rate 23 MM/HR (0-15)
[2021-09-22 11:41] LABS: Testosterone, Total 125 ng/dL (250-1100)
== END 2021-09-16 13:47 | disposition home or self-care (01) ==
LOC: HO.LAB 13:46
PROVIDERS: Absent Provider Urology; PCP Internal Medicine Geriatric Medicine; Visit Provider Nurse Practitioner Family
DX: Z12.5 Encounter for screening for malignant neoplasm of prostate (principal); M1A.0610 Idiopathic chronic gout, right knee, without tophus (tophi); E29.1 Testicular hypofunction; R76.8 Other specified abnormal immunological findings in serum
CPT/HCPCS: 36415; 80053; 84153; 84403; 84550; 85025; 85027; 85652; 86140; 99212

== ENCOUNTER → 2021-10-01 12:17 | Outpatient (BNVA) | payer MEDICARE, SELFPAY | PROVIDERS: PCP Internal Medicine Geriatric Medicine; Visit Provider Urology | DX: E29.1 Testicular hypofunction (principal) | CPT/HCPCS: Q3014 ==

== ENCOUNTER 2021-10-16 09:32 | Outpatient (REF) | payer MEDICARE, SELFPAY ==
[2021-10-16 10:39] LABS: MANUAL DIFF FLAG NO
[2021-10-16 11:09] LABS: Basophils Absolute Auto 0.1 X10*3/uL (0.0-0.2); Basophils Percent Auto 0.7 % (0-2); Eosinophils Absolute Auto 1.5 X10*3/uL (0.0-0.4); Eosinophils Percent Auto 14.2 % (0-4); Hematocrit 39.3 % (42.0-52.0); Hemoglobin 12.3 g/dl (14.0-18.0); Imm Gran Abs Auto 0.05 X10*3/uL (0.00-0.03); Imm Gran Pct Auto 0.5 % (0.0-0.4); Lymphocytes Absolute Auto 2.4 X10*3/uL (1.2-4.9); Lymphocytes Percent Auto 22.1 % (20-40); Mean Corpuscular HGB Conc 31.3 g/dl (31.0-36.0); Mean Corpuscular Hemoglobin 25.5 pg (27.0-33.0); Mean Corpuscular Volume 81.5 fL (80.0-98.0); Mean Platelet Volume 9.5 fL (9.4-12.4); Monocytes Absolute Auto 0.8 X10*3/uL (0.1-1.2); Monocytes Percent Auto 7.6 % (2-11); Neutrophils Absolute Auto 5.9 x10*3/uL (2.0-8.3); Neutrophils Percent Auto 54.9 % (45-73); Platelet Count 338 X10*3/uL (160-400); Red Blood Count 4.82 X10*6/uL (4.60-5.80); Red Cell Distribution Width 16.9 % (11.0-16.0); White Blood Count 10.7 X10*3/uL (4.8-10.8)
[2021-10-16 11:37] LABS: Alanine Aminotransferase 15 U/L (0-40); Albumin Level 4.2 g/dL (3.5-5.0); Alkaline Phosphatase 87 U/L (39-117); Anion Gap 13 (12-20); Aspartate Amino Transferase 16 U/L (5-37); Bilirubin Total 0.3 mg/dL (0.0-1.0); Blood Urea Nitrogen 22 mg/dL (9-16); Calcium 9.6 mg/dL (8.4-10.2); Carbon Dioxide 25 mmol/L (22-29); Chloride 105 mmol/L (96-108); Estimated Glomerular Filt Rate 57; Glucose Random 154 mg/dL (60-115); Potassium 4.5 mmol/L (3.3-5.1); Sodium 138 mmol/L (135-145); Total Protein 7.4 g/dL (6.5-8.0); Uric Acid 4.3 mg/dL (3.4-7.0)
== END 2021-10-16 09:33 | disposition home or self-care (01) ==
LOC: HO.LAB 09:32
PROVIDERS: Urology; PCP Internal Medicine Geriatric Medicine; Visit Provider Nurse Practitioner Family
DX: M1A.0610 Idiopathic chronic gout, right knee, without tophus (tophi) (principal); R76.8 Other specified abnormal immunological findings in serum; M25.50 Pain in unspecified joint
CPT/HCPCS: 36415; 80053; 84550; 85025; 85027; 99212

== ENCOUNTER → 2021-10-20 13:57 | Outpatient (BNVA) | payer OTHER, SELFPAY | PROVIDERS: PCP Internal Medicine Geriatric Medicine; Referring Provider Internal Medicine Geriatric Medicine; Visit Provider Physician Assistant | DX: K59.09 Other constipation (principal); K21.9 Gastro-esophageal reflux disease without esophagitis | CPT/HCPCS: 99212 ==

== ENCOUNTER 2021-11-20 10:55 | Outpatient (REF) | payer MEDICARE, SELFPAY ==
[2021-11-20 14:03] LABS: Alanine Aminotransferase 17 U/L (0-40); Albumin Level 4.3 g/dL (3.5-5.0); Alkaline Phosphatase 102 U/L (39-117); Anion Gap 15 (12-20); Aspartate Amino Transferase 15 U/L (5-37); Bilirubin Total 0.2 mg/dL (0.0-1.0); Blood Urea Nitrogen 23 mg/dL (9-16); Calcium 9.8 mg/dL (8.4-10.2); Carbon Dioxide 24 mmol/L (22-29); Chloride 104 mmol/L (96-108); Estimated Glomerular Filt Rate 51; Glucose Random 187 mg/dL (60-115); Potassium 4.4 mmol/L (3.3-5.1); Sodium 139 mmol/L (135-145); Total Protein 7.7 g/dL (6.5-8.0); Uric Acid 4.5 mg/dL (3.4-7.0)
== END 2021-11-20 10:56 | disposition home or self-care (01) ==
LOC: HO.XRAY 10:55
PROVIDERS: PCP Internal Medicine Geriatric Medicine; Visit Provider Nurse Practitioner Family
DX: M1A.0610 Idiopathic chronic gout, right knee, without tophus (tophi) (principal); R76.8 Other specified abnormal immunological findings in serum; M25.512 Pain in left shoulder
CPT/HCPCS: 36415; 80053; 84550; 99212

== ENCOUNTER 2021-11-21 14:00 | Outpatient (REF) | payer MEDICARE, SELFPAY ==
--- NOTE | ~2021-11-21 | XR_ITS ---
EXAMINATION: XR SHOULDER, LEFT CLINICAL INFORMATION: Pain COMPARISON: None TECHNIQUE: AP external rotation, Grashey, scapular Y, and axillary views of the left shoulder. FINDINGS: There is mild loss of glenohumeral joint space with inferior periarticular spurring. No visible fracture or dislocation seen. A small enthesophyte along the greater tuberosity. There is mild loss of left AC joint with superior spurring. No acute fracture or dislocation seen. The soft tissues are normal. XR/XR shoulder LT min 2V IMPRESSION: Mild degenerative changes left AC joint and left glenohumeral joint. No visible acute fracture or dislocation seen.
== END 2021-11-21 14:01 | disposition home or self-care (01) ==
LOC: HO.XRAY 14:00
PROVIDERS: PCP Internal Medicine Geriatric Medicine; Visit Provider Nurse Practitioner Family
DX: M25.512 Pain in left shoulder (principal)
CPT/HCPCS: 73030

== ENCOUNTER 2022-01-22 08:50 | Day surgery (SDC) | payer MEDICARE, SELFPAY ==
[2022-01-19 10:57] VITALS: BMI 28.5
--- NOTE | 2022-01-21 09:34 | P.CONAN_ITS ---
Documented by User: Latonya Banerjee NP 01/21/22 09:36 HPI - Anesthesia Eval Consult details Narrative: 76yo M for Colonoscopy s/p EGD and [place] 11/2020 with MAC (had poor prep) [facility] Active Problems Active Problems: All Active Problems (Updated 10/22/21 @ 10:42 by Laura Cid PA-C) Hypogonadism in male (Acute) Anemia (Chronic) Colonoscopy planned (Acute) Joint pain (Acute) Elevated rheumatoid factor (Acute) Barretts esophagus (Acute) Right knee pain (Acute) Effusion, right knee (Acute) Chronic gout of right knee (Acute) Chronic constipation (Acute) Acid reflux (Acute) Past Medical History Medical History Acid reflux Ambulates with cane Chronic constipation COVID-19 vaccine series started Diabetes Eosinophilia History of depression Leukocytosis Normocytic anemia Rheumatoid arthritis Family History Family History Mother Diabetes Father No problems noted. Surgical History Surgical History (Updated 01/19/22 @ 10:58 by Enid Treviño RN) History of back surgery History of cataract extraction History of colonoscopy History of esophagogastroduodenoscopy (EGD) History of surgical removal of lesion Social History Social History Household Members: Spouse Housing: House Alcohol intake: never Patient Tobacco Use Status: Former Tobacco user e-Cigarette/Vaping Use: Never Used Use of substances other than those prescribed or required for medical reasons: No Are you DNR?: No Advance Directives: No Advance Directives Information Provided: Yes Current occupational status: retired Current occupation: rt handed Meds Allergies Allergy/AdvReac Type Severity Reaction Status Date / Time No Known Allergies Allergy Verified 11/20/21 11:33 Home Medications Medication Instructions Recorded Confirmed Last Taken Type blood sugar diagnostic #10 ea 07/23/20 11/20/21 Unknown History chlorthalidone 50 mg tablet 50 mg PO DAILY 07/23/20 01/19/22 Unknown History lisinopril 40 mg tablet 40 mg PO DAILY 07/23/20 01/19/22 Unknown History pravastatin 20 mg tablet 20 mg PO DAILY 07/23/20 01/19/22 Unknown History acetaminophen 500 mg tablet 500 mg PO Q6-8H PRN 10/02/20 01/19/22 Unknown History diclofenac sodium 1 % topical gel 1 g TOPICAL DAILY 10/02/20 01/19/22 Unknown History hdqhnndgkicn-mlmgnuqi-hjkdgo tablet 1 tab PO DAILY 10/02/20 11/20/21 Unknown History dulaglutide 0.75 mg/0.5 mL 1 mg SUBCUT QWEEK 11/14/20 11/20/21 Unknown History subcutaneous pen injector (Trulicity) dulaglutide 1.5 mg/0.5 mL 1.5 mg SUBCUT QWEEK 11/29/20 01/19/22 Unknown History subcutaneous pen injector (Trulicity) clotrimazole 1 % topical cream 1 appl TOPICAL BEDTIME 03/11/21 01/19/22 Unknown History fluoride (sodium) 1.1 % dental 1.1 appl PO DAILY 03/21/21 01/19/22 Unknown History paste buspirone 5 mg tablet 5 mg PO TID 10/01/21 01/19/22 Unknown History empagliflozin 10 mg tablet 10 mg PO DAILY 10/01/21 01/19/22 Unknown History (Jardiance) multivitamin-iron sulfate 15 1 tab PO DAILY 10/01/21 01/19/22 Unknown History mg-folic acid 400 mcg tablet (Tab-A-Mark Multivitamin w-iron) Exam Exam Date and Time: January 21, 2022 0934 Height,Weight and Vital Signs: Height 4 ft 11 in Weight 63.957 kg Pertinent Lab Results Pertinent Lab Results: Laboratory Tests 10/16/21 11/20/21 10:38 12:42 WBC 10.7 Hgb 12.3 L Hct 39.3 L Plt Count 338 Sodium 139 Potassium 4.4 Chloride 104 Carbon Dioxide 24 BUN 23 H Creatinine 1.37 Assessment and Plan Assessment Anesthesia Assessment: Chart Reviewed Documented by User: Miguelito Aguilar MD 01/22/22 11:02 [facility] Past Medical History Medical History Acid reflux Ambulates with cane Chronic constipation COVID-19 vaccine series started Diabetes Eosinophilia History of depression Leukocytosis Normocytic anemia Rheumatoid arthritis Family History Family History Mother Diabetes Father No problems noted. Family history of problems with anesthesia: No Surgical History Surgical History (Updated 01/19/22 @ 10:58 by Enid Treviño RN) History of back surgery History of cataract extraction History of colonoscopy History of esophagogastroduodenoscopy (EGD) History of surgical removal of lesion History of Problems with Anesthesia: No Social History Social History Household Members: Spouse Housing: House Alcohol intake: never Patient Tobacco Use Status: Former Tobacco user e-Cigarette/Vaping Use: Never Used Use of substances other than those prescribed or required for medical reasons: No Are you DNR?: No Advance Directives: No Advance Directives Information Provided: Yes Current occupational status: retired Current occupation: rt handed Meds Allergies Allergy/AdvReac Type Severity Reaction Status Date / Time No Known Allergies Allergy Verified 11/20/21 11:33 Home Medications Medication Instructions Recorded Confirmed Last Taken Type blood sugar diagnostic #10 ea 07/23/20 11/20/21 Unknown History chlorthalidone 50 mg tablet 50 mg PO DAILY 07/23/20 01/19/22 Unknown History lisinopril 40 mg tablet 40 mg PO DAILY 07/23/20 01/19/22 Unknown History pravastatin 20 mg tablet 20 mg PO DAILY 07/23/20 01/19/22 Unknown History acetaminophen 500 mg tablet 500 mg PO Q6-8H PRN 10/02/20 01/19/22 Unknown History diclofenac sodium 1 % topical gel 1 g TOPICAL DAILY 10/02/20 01/19/22 Unknown History ieohugrrcbzs-opohshkb-bvnbwt tablet 1 tab PO DAILY 10/02/20 11/20/21 Unknown History dulaglutide 0.75 mg/0.5 mL 1 mg SUBCUT QWEEK 11/14/20 11/20/21 Unknown History subcutaneous pen injector ([facility]) dulaglutide 1.5 mg/0.5 mL 1.5 mg SUBCUT QWEEK 11/29/20 01/19/22 Unknown History subcutaneous pen injector (Trulicity) clotrimazole 1 % topical cream 1 appl TOPICAL BEDTIME 03/11/21 01/19/22 Unknown History fluoride (sodium) 1.1 % dental 1.1 appl PO DAILY 03/21/21 01/19/22 Unknown History paste buspirone 5 mg tablet 5 mg PO TID 10/01/21 01/19/22 Unknown History empagliflozin 10 mg tablet 10 mg PO DAILY 10/01/21 01/19/22 Unknown History (Jardiance) multivitamin-iron sulfate 15 1 tab PO DAILY 10/01/21 01/19/22 Unknown History mg-folic acid 400 mcg tablet (Tab-A-Mark Multivitamin w-iron) Exam Airway Loose/Missing/Broken Teeth: Yes Assessment and Plan Assessment Anesthesia Assessment: Anesthesia Plan Discussed Final Anesthetic Review Family History of Problems with Anesthesia: No History of Problems with Anesthesia: No NPO: Yes ASA Class: II Final Preanesthetic Review: No Changes in Pt Med Stat, Meds/Allgs Chart Reviewed, Consent Obtained/Reviewed and Anes Risks/Benef Reviewed Patient Risk: Low Procedure Risk: Low Anesthetic Plan Anesthetic Plan: MAC: Disposition: Standard PACU
[2022-01-22 08:56] VITALS: BP 147/67; PULSE 69; RESP 16; TEMP 36.2; O2SAT 97
[2022-01-22 09:03] LABS: Glucose, Whole Blood 113 mg/dL (60-115)
[2022-01-22 09:09] VITALS: BMI 29.5
[2022-01-22] MEDS: Lactated Ringers 1,000 ML 100 ML IVCONT (09:19)
--- NOTE | 2022-01-22 09:57 | MHC.SHP ---
Pre-Procedural Eval Section A Date of Service: 01/22/22 Section B Chief Complaint: anemia Details of Present Illness: prior colonoscopy with poor prep Relevant Family History (Specify if Yes): No Relevant Social History: None Present Medications: see Short Stay Collaborative assessment Medical History: Significant History (Acid reflux Ambulates with cane Chronic constipation COVID-19 vaccine series started Diabetes Eosinophilia History of depression Leukocytosis Normocytic anemia Rheumatoid arthritis) History of Previous Operations: Relevant previous surgery/procedure and date(s) (History of back surgery History of cataract extraction History of colonoscopy History of esophagogastroduodenoscopy (EGD) History of surgical removal of lesion) Allergies: Allergies Allergy/AdvReac Type Severity Reaction Status Date / Time No Known Allergies Allergy Verified 11/20/21 11:33 Review of Systems Sugical H&P ROS: Negative: Constitution, Cardiovascular, Respiratory, Neurological, Psychiatric, Hem-Onc, Allergic/Immunologic, Gastrointestinal, Genitourinary, Musculoskeletal, Integumentary, Endocrine and Eyes/Ears/Nose/Throat Exam Surgical H&P Exam: Normal: HEENT, Normal: Heart, Normal: Lungs, Normal: Extremities, Normal: Abdomen, Normal: Skin and Normal: Neurological Plan Diagnosis/Plan: Unchanged I have reviewed the history and physical and performed a pertinent physical examination on my patient. No changes have occurred unless specified.
--- NOTE | 2022-01-22 10:00 | PM.OP ---
Brief Operative Note Date of Service: 01/22/22 Pre-op diagnosis: Anemia--prior colonoscopy with poor prep Post-op diagnosis: same Procedure: see op note Surgeon: Haris Shah MD Anesthesia: MAC Was an Airplane First Officer used for this Procedure?: No Estimated blood loss (mL): 0 Condition: stable Disposition: PACU
--- NOTE | 2022-01-22 10:01 | W.PM.OPN ---
Operative Note Operative Note Date of Service: 01/22/22 Narrative: Operative Information Procedure Description: Colonoscopy Indication: Anemia--prior colonoscopy with poor prep Anesthesia: MAC COLONOSCOPY Instrument: Olympus variable stiffness pediatric scope 190L Colonoscopy Monitoring: Vital signs and clinical assessment, continuous EKG monitoring, Pulse oximetry, Carbon Dioxide monitoring and blood pressure monitoring were done throughout the procedure. Colon withdrawal time was 13 minutes. Procedure: The patient was placed in the left lateral decubitis position and pre-procedure medications were administered. After a digital rectal examination of the ano-rectum, the video colonoscope was inserted into the rectum and advanced through the colon to the cecum/TI. The colonoscope was slowly withdrawn in a retrograde panoramic fashion and the colon mucosa was carefully examined including a retroflexed view of the rectum. Findings and interventions are described below. Procedure Difficulty: moderate due to looping Findings: Severe hassan diverticulosis with wide mouthed tics Terminal Ileum-normal (only superficially intubated) Cecum: many micro abscesses Ascending Colon: many microabscesses, bx taken. x2 sessile polyps noted, 6-9 mm, one removed with cold forceps and one with cold snare Transverse Colon - 5-7 mm sessile polyp removed with cold forceps Descending Colon:normal Sigmoid Colon: severe diverticulosis with narrowing of lumen Rectum: Retroflexion with medium sized internal hemorrhoids, grade I Anorectum - normal Colon preparation: [place] Bowel Preparation Scale Right colon; 1-2 Transverse colon: 2 Left colon; 1-2 (0 = Unprepared colon segment with mucosa not seen due to solid stool that cannot be cleared. 1 = Portion of mucosa of the colon segment seen, but other areas of the colon segment not well seen due to staining, residual stool and/or opaque liquid. 2 = Minor amount of residual staining, small fragments of stool and/or opaque liquid, but mucosa of colon segment seen well. 3 = Entire mucosa of colon segment seen well with no residual staining, small fragments of stool or opaque liquid) Impression and Post Procedure Diagnosis: polyps internal hemorrhoids diverticular disease microabscesses of mucosa on right colon, may be sign of non specific colitis, crohns or infectious colitis Plan: High fiber diet leaflet Avoid straining at stool, epsom salts and sitz bath, anusol supps or cream Repeat Colonoscopy in 1 year due to prep or earlier if clinically indicated Above findings were reviewed with the patient and relevant handouts were provided if indicated.
[2022-01-22 10:48] VITALS: BP 100/61; PULSE 70; RESP 14; TEMP 36.7; O2SAT 94
[2022-01-22 11:03] VITALS: BP 108/66; PULSE 65; RESP 16; O2SAT 96
[2022-01-22 11:18] VITALS: BP 119/74; PULSE 60; RESP 16; TEMP 36.6; O2SAT 97
== END 2022-01-22 11:43 | disposition home or self-care (01) ==
PROVIDERS: PCP Internal Medicine Geriatric Medicine; Visit Provider Internal Medicine Gastroenterology
PROC: 0DJD8ZZ Inspection of Lower Intestinal Tract, Via Natural or Artificial Opening Endoscopic (ICD-10-PCS; CPT 45378; principal; 2022-01-22 10:30)
DX: D64.9 Anemia, unspecified (principal); K59.09 Other constipation; D12.2 Benign neoplasm of ascending colon; D12.3 Benign neoplasm of transverse colon; K52.82 Eosinophilic colitis; K57.30 Diverticulosis of large intestine without perforation or abscess without bleeding; K64.0 First degree hemorrhoids; K21.9 Gastro-esophageal reflux disease without esophagitis; M06.9 Rheumatoid arthritis, unspecified; Z79.899 Other long term (current) drug therapy; E11.9 Type 2 diabetes mellitus without complications
CPT/HCPCS: 45385; 45380; 82947; 88305

== ENCOUNTER → 2022-02-05 09:47 | Outpatient (BNVA) | payer MEDICARE, SELFPAY | PROVIDERS: PCP Internal Medicine Geriatric Medicine; Referring Provider Internal Medicine Geriatric Medicine; Visit Provider Physician Assistant | DX: K21.9 Gastro-esophageal reflux disease without esophagitis (principal); D12.3 Benign neoplasm of transverse colon; D12.2 Benign neoplasm of ascending colon; Z98.890 Other specified postprocedural states | CPT/HCPCS: 99212 ==

== ENCOUNTER 2022-02-13 11:35 | Outpatient (REF) | payer MEDICARE, SELFPAY ==
[2022-02-20 00:52] LABS: Calprotectin, Fecal 93 mcg/g
== END 2022-02-13 11:36 | disposition home or self-care (01) ==
LOC: HO.LNP 11:35
PROVIDERS: Visit Provider Physician Assistant
DX: K52.9 Noninfective gastroenteritis and colitis, unspecified (principal)
CPT/HCPCS: 83993; 87177; 87209

== ENCOUNTER 2022-02-16 11:49 | Outpatient (REF) | payer OTHER, SELFPAY ==
[2022-02-16 12:09] LABS: Hematocrit 41.4 % (42.0-52.0); Hemoglobin 13.5 g/dl (14.0-18.0); Mean Corpuscular HGB Conc 32.6 g/dl (31.0-36.0); Mean Corpuscular Hemoglobin 27.5 pg (27.0-33.0); Mean Corpuscular Volume 84.3 fL (80.0-98.0); Mean Platelet Volume 9.4 fL (9.4-12.4); Platelet Count 322 X10*3/uL (160-400); Red Blood Count 4.91 X10*6/uL (4.60-5.80); Red Cell Distribution Width 15.2 % (11.0-16.0); White Blood Count 12.4 X10*3/uL (4.8-10.8)
[2022-02-16 12:36] LABS: Uric Acid 4.7 mg/dL (3.4-7.0)
[2022-02-16 12:40] LABS: Alanine Aminotransferase 17 U/L (0-40); Albumin Level 4.6 g/dL (3.5-5.0); Alkaline Phosphatase 91 U/L (39-117); Anion Gap 13 (12-20); Aspartate Amino Transferase 18 U/L (5-37); Bilirubin Total 0.5 mg/dL (0.0-1.0); Blood Urea Nitrogen 24 mg/dL (9-16); Calcium 9.6 mg/dL (8.4-10.2); Carbon Dioxide 25 mmol/L (22-29); Chloride 105 mmol/L (96-108); Estimated Glomerular Filt Rate 44; Glucose Random 199 mg/dL (60-115); Potassium 4.2 mmol/L (3.3-5.1); Sodium 139 mmol/L (135-145); Total Protein 7.9 g/dL (6.5-8.0)
[2022-02-16 13:02] LABS: PSA,Total (Free>4and<10) 1.69 ng/mL (0.00-4.00)
[2022-02-20 19:57] LABS: Testosterone, Free 30.4 pg/mL (30.0-135.0); Testosterone, Total 156 ng/dL (250-1100)
== END 2022-02-16 11:50 | disposition home or self-care (01) ==
LOC: HO.LAB 11:49
PROVIDERS: Absent Provider Urology; PCP Internal Medicine Geriatric Medicine; Visit Provider Nurse Practitioner Family
DX: Z12.5 Encounter for screening for malignant neoplasm of prostate (principal); M1A.0610 Idiopathic chronic gout, right knee, without tophus (tophi); C64.9 Malignant neoplasm of unspecified kidney, except renal pelvis; E29.1 Testicular hypofunction; R76.8 Other specified abnormal immunological findings in serum; M25.512 Pain in left shoulder
CPT/HCPCS: 36415; 80053; 84153; 84402; 84403; 84550; 85027; 99212

== ENCOUNTER 2022-02-19 11:27 | Outpatient (REF) | payer OTHER, SELFPAY ==
[2022-02-19 12:42] LABS: Anion Gap 12 (12-20); Blood Urea Nitrogen 19 mg/dL (9-16); Calcium 9.5 mg/dL (8.4-10.2); Carbon Dioxide 24 mmol/L (22-29); Chloride 105 mmol/L (96-108); Estimated Glomerular Filt Rate 46; Glucose Random 168 mg/dL (60-115); Potassium 4.3 mmol/L (3.3-5.1); Sodium 137 mmol/L (135-145)
[2022-02-19 12:53] LABS: Erythrocyte Sedimentation Rate 10 MM/HR (0-15)
== END 2022-02-19 11:28 | disposition home or self-care (01) ==
LOC: HO.LAB 11:27
PROVIDERS: PCP Internal Medicine Geriatric Medicine; Visit Provider Nurse Practitioner Family
DX: R76.8 Other specified abnormal immunological findings in serum (principal); R79.89 Other specified abnormal findings of blood chemistry
CPT/HCPCS: 36415; 80048; 85652; 86140

== ENCOUNTER 2022-04-24 08:49 | Outpatient (REF) | payer OTHER, SELFPAY ==
--- NOTE | ~2022-04-24 | MR_ITS ---
EXAMINATION: MRI ABDOMEN AND PELVIS WITH AND WITHOUT CONTRAST: MR ENTEROGRAPHY CLINICAL INFORMATION: Reason for Exam K52.9 - Noninfective gastroenteritis and colitis, unspecified COMPARISON: 06/29/2019 TECHNIQUE: 1500 mL Volumen PO contrast prior to scanning. Then, multiple routine MRI sequences through the abdomen were obtained on a high-field 1.5 Pat MRI before and after the uneventful administration of 6.5 mL of Gadavist gadolinium-based IV contrast. FINDINGS: STOMACH: Adequately distended without wall thickening. No focal abnormality. SMALL BOWEL: Adequate small bowel distention with fluid. No areas of wall thickening are seen. Mild wall hyperenhancement involving the small bowel in the right midabdomen. No adjacent inflammation. No areas of stricturing are noted. COLON: Diffuse colonic diverticulosis present. No colonic wall thickening or abnormal enhancement. Prominent stool throughout the colon. LUNG BASES: Lung bases are clear. LIVER: Liver enhances normally. No focal lesion seen. Hepatic and portal veins enhance normally. GALLBLADDER AND BILIARY TREE: The gallbladder is normal. No intra or extra-hepatic biliary ductal dilation. SPLEEN: Normal. Normal size. No focal lesion. PANCREAS: Pancreatic divisum. The pancreatic parenchyma is mostly homogenous, with a 0.6 cm cyst at the pancreatic tail. No abnormal enhancement. ADRENAL GLANDS: The right adrenal gland is normal. 0.9 cm left adrenal gland nodule. This does not enhance. This is indeterminant, as there is not signal dropout seen on out of phase imaging. This is T2 bright and may be cystic. KIDNEYS AND URETERS: Normal symmetric renal enhancement. No hydronephrosis or mass. Numerous bilateral simple renal cysts. The dominant is an exophytic cyst at the midpole of the right kidney measuring 10.2 cm. LYMPHOVASCULAR STRUCTURES: Normal caliber aorta. IVC patent. No pathologically enlarged abdominal or retroperitoneal lymphadenopathy by CT size criteria. PELVIS: No pelvic mass. Susceptibility artifact in the right pelvis. Small fat-containing right inguinal hernia. OSSEOUS STRUCTURES: Spinal fusion hardware at the lumbar spine. No bone marrow signal abnormality. MR/MR abdomen wo/w con IMPRESSION: No abnormal bowel wall thickening. Mild wall hyperenhancement involving the small bowel in the right midabdomen may be within normal limits. No adjacent inflammatory changes are seen. No suspicious findings of the colon. Moderate stool throughout the colon. Diffuse colonic diverticulosis. Indeterminate left adrenal gland nodule may be a cyst. Numerous renal cysts for which no dedicated follow-up is recommended.
== END 2022-04-24 08:50 | disposition home or self-care (01) ==
LOC: HO.MRI 08:49
PROVIDERS: Visit Provider Physician Assistant
DX: K52.9 Noninfective gastroenteritis and colitis, unspecified (principal)
CPT/HCPCS: 72197; 74183; A9585

== ENCOUNTER → 2022-04-30 09:39 | Outpatient (BNVA) | payer OTHER, SELFPAY | PROVIDERS: PCP Internal Medicine Geriatric Medicine; Visit Provider Physician Assistant | DX: K21.9 Gastro-esophageal reflux disease without esophagitis (principal); Z86.010 Personal history of colon polyps; Z79.899 Other long term (current) drug therapy | CPT/HCPCS: 99212; Q3014 ==

== ENCOUNTER → 2022-05-05 13:17 | Outpatient (BNVA) | payer OTHER, SELFPAY | PROVIDERS: PCP Internal Medicine Geriatric Medicine; Visit Provider Urology | DX: E29.1 Testicular hypofunction (principal) | CPT/HCPCS: Q3014 ==

== ENCOUNTER → 2022-07-23 09:48 | Outpatient (BNVA) | payer OTHER, SELFPAY | PROVIDERS: PCP Internal Medicine Geriatric Medicine; Visit Provider Urology | DX: E29.1 Testicular hypofunction (principal) | CPT/HCPCS: 99212 ==

== ENCOUNTER 2022-08-18 12:49 | Outpatient (REF) | payer OTHER, SELFPAY ==
[2022-08-18 15:49] LABS: Blood Urea Nitrogen 21 mg/dL (9-16); Estimated Glomerular Filt Rate 50; Uric Acid 4.5 mg/dL (3.4-7.0)
== END 2022-08-18 12:50 | disposition home or self-care (01) ==
LOC: HO.10HDL 12:49
PROVIDERS: Visit Provider Nurse Practitioner Family
DX: M1A.0610 Idiopathic chronic gout, right knee, without tophus (tophi) (principal); R76.8 Other specified abnormal immunological findings in serum; M25.512 Pain in left shoulder
CPT/HCPCS: 36415; 82565; 84520; 84550; 99212

== ENCOUNTER 2022-09-19 09:20 | Outpatient (REF) | payer OTHER, SELFPAY | END 2022-09-19 09:21 | disposition home or self-care (01) | LOC: HO.LAB 09:20 | PROVIDERS: Visit Provider Urology | DX: E29.1 Testicular hypofunction (principal) | CPT/HCPCS: 36415; 84402; 84403 ==

== ENCOUNTER 2022-09-29 09:53 | Outpatient (REF) | payer OTHER, SELFPAY ==
[2022-10-04 13:22] LABS: Testosterone, Total 381 ng/dL (250-1100)
== END 2022-09-29 09:54 | disposition home or self-care (01) ==
LOC: HO.LAB 09:53
PROVIDERS: PCP Internal Medicine Geriatric Medicine; Visit Provider Urology
DX: Z13.89 Encounter for screening for other disorder (principal)
CPT/HCPCS: 36415; 84403

== ENCOUNTER → 2022-10-09 09:12 | Outpatient (BNVA) | payer OTHER, SELFPAY | PROVIDERS: PCP Internal Medicine Geriatric Medicine; Visit Provider Nurse Practitioner Family | DX: N40.0 Benign prostatic hyperplasia without lower urinary tract symptoms (principal); E29.1 Testicular hypofunction; Z79.899 Other long term (current) drug therapy | CPT/HCPCS: 99212 ==

== ENCOUNTER → 2022-10-19 12:39 | Outpatient (BNVA) | payer OTHER, SELFPAY | PROVIDERS: PCP Internal Medicine Geriatric Medicine; Visit Provider Physician Assistant | DX: K21.9 Gastro-esophageal reflux disease without esophagitis (principal); D36.9 Benign neoplasm, unspecified site | CPT/HCPCS: Q3014 ==

== ENCOUNTER → 2022-12-14 10:23 | Outpatient (BNVA) | payer OTHER, SELFPAY | PROVIDERS: PCP Internal Medicine Geriatric Medicine; Visit Provider Physician Assistant | DX: Z86.010 Personal history of colon polyps (principal) | CPT/HCPCS: 99212 ==

== ENCOUNTER 2023-01-20 07:48 | Day surgery (SDC) | payer OTHER, SELFPAY ==
[2023-01-18 13:58] VITALS: BMI 22.8
--- NOTE | 2023-01-19 11:51 | P.CONAN_ITS ---
Documented by User: Latonya Banerjee NP 01/19/23 11:51 HPI - Anesthesia Eval Consult details Narrative: 77yo M for Colonoscopy [facility] Active Problems Active Problems: All Active Problems (Updated 12/14/22 @ 11:46 by Laura Cid PA-C) History of colon polyps (Acute) Hypogonadism in male (Acute) BPH (benign prostatic hyperplasia) (Acute) Gout (Acute) Diabetes (Acute) Tubular adenoma (Acute) Hypogonadism in male (Acute) Anemia (Chronic) Colonoscopy planned (Acute) Joint pain (Acute) Elevated rheumatoid factor (Acute) Barretts esophagus (Acute) Right knee pain (Acute) Effusion, right knee (Acute) Chronic gout of right knee (Acute) Chronic constipation (Acute) Acid reflux (Acute) Past Medical History Medical History Acid reflux Ambulates with cane Chronic constipation COVID-19 vaccine series started Diabetes Eosinophilia History of depression Leukocytosis Normocytic anemia Rheumatoid arthritis Family History Family History Mother Diabetes Father No problems noted. Family history of problems with anesthesia: No Surgical History Surgical History History of back surgery History of cataract extraction History of colonoscopy History of esophagogastroduodenoscopy (EGD) History of surgical removal of lesion History of Problems with Anesthesia: No Social History Social History Household Members: Spouse Housing: House Alcohol intake: never Patient Tobacco Use Status: Former Tobacco user e-Cigarette/Vaping Use: Never Used Advance Directives: No Advance Directives Information Provided: Yes Advance Directives on File: No service: No Current occupational status: retired Current occupation: rt handed Meds Allergies Allergy/AdvReac Type Severity Reaction Status Date / Time No Known Allergies Allergy Verified 10/19/22 13:30 Home Medications Medication Instructions Recorded Confirmed Last Taken Type blood sugar diagnostic #10 ea 07/23/20 12/14/22 01/19/23 History lisinopril 40 mg tablet 40 mg PO DAILY 07/23/20 01/18/23 01/19/23 History pravastatin 20 mg tablet 20 mg PO DAILY 07/23/20 01/18/23 01/19/23 History buspirone 5 mg tablet 5 mg PO TID 10/01/21 01/18/23 01/19/23 History empagliflozin 10 mg tablet 10 mg PO DAILY 10/01/21 01/18/23 01/19/23 History (Jardiance) multivitamin-iron sulfate 15 1 tab PO DAILY 10/01/21 01/18/23 01/19/23 History mg-folic acid 400 mcg tablet (Tab-A-Mark Multivitamin w-iron) amlodipine 10 mg tablet 10 mg PO DAILY 05/05/22 01/18/23 01/19/23 History ascorbic acid (vitamin C) 500 mg 500 mg PO DAILY 05/05/22 01/18/23 01/19/23 History tablet (Vitamin C) aspirin 81 mg tablet,delayed 81 mg PO DAILY 07/20/22 01/18/23 01/18/23 History release famotidine 40 mg tablet 40 mg PO DAILY 01/18/23 01/18/23 01/19/23 History meclizine 25 mg tablet 25 mg PO TID PRN Dizziness 01/18/23 01/18/23 01/19/23 History Exam Exam Date and Time: January 19, 2023 1151 Height,Weight and Vital Signs: Height 5 ft 6 in Weight 63.957 kg Assessment and Plan Assessment Anesthesia Assessment: Chart Reviewed Final Anesthetic Review Family History of Problems with Anesthesia: No History of Problems with Anesthesia: No Documented by User: Shanti Cordova MD 01/20/23 09:28 [facility] Past Medical History Medical History Acid reflux Ambulates with cane Chronic constipation COVID-19 vaccine series started Diabetes Eosinophilia History of depression Leukocytosis Normocytic anemia Rheumatoid arthritis Family History Family History Mother Diabetes Father No problems noted. Surgical History Surgical History History of back surgery History of cataract extraction History of colonoscopy History of esophagogastroduodenoscopy (EGD) History of surgical removal of lesion Social History Social History Household Members: Spouse Housing: House Alcohol intake: never Patient Tobacco Use Status: Former Tobacco user e-Cigarette/Vaping Use: Never Used Advance Directives: No Advance Directives Information Provided: Yes Advance Directives on File: No service: No Current occupational status: retired Current occupation: rt handed Meds Allergies Allergy/AdvReac Type Severity Reaction Status Date / Time No Known Allergies Allergy Verified 10/19/22 13:30 Home Medications Medication Instructions Recorded Confirmed Last Taken Type blood sugar diagnostic #10 ea 07/23/20 12/14/22 01/19/23 History lisinopril 40 mg tablet 40 mg PO DAILY 07/23/20 01/18/23 01/19/23 History pravastatin 20 mg tablet 20 mg PO DAILY 07/23/20 01/18/23 01/19/23 History buspirone 5 mg tablet 5 mg PO TID 10/01/21 01/18/23 01/19/23 History empagliflozin 10 mg tablet 10 mg PO DAILY 10/01/21 01/18/23 01/19/23 History (Jardiance) multivitamin-iron sulfate 15 1 tab PO DAILY 10/01/21 01/18/23 01/19/23 History mg-folic acid 400 mcg tablet (Tab-A-Mark Multivitamin w-iron) amlodipine 10 mg tablet 10 mg PO DAILY 05/05/22 01/18/23 01/19/23 History ascorbic acid (vitamin C) 500 mg 500 mg PO DAILY 05/05/22 01/18/23 01/19/23 History tablet (Vitamin C) aspirin 81 mg tablet,delayed 81 mg PO DAILY 07/20/22 01/18/23 01/18/23 History release famotidine 40 mg tablet 40 mg PO DAILY 01/18/23 01/18/23 01/19/23 History meclizine 25 mg tablet 25 mg PO TID PRN Dizziness 01/18/23 01/18/23 01/19/23 History Exam Airway Mallampati Class: II TM Dist: >3cm Neck ROM: Full Heart: rrr Lungs: cta Assessment and Plan Assessment Anesthesia Assessment: Anesthesia Plan Discussed and Chart Reviewed Final Anesthetic Review NPO: Yes ASA Class: III Final Preanesthetic Review: No Changes in Pt Med Stat, Meds/Allgs Chart Reviewed and Consent Obtained/Reviewed Patient Risk: Intermediate Procedure Risk: Intermediate Anesthetic Plan Anesthetic Plan: MAC: Disposition: Standard PACU
[2023-01-20 08:52] VITALS: BP 164/66; PULSE 67; RESP 17; TEMP 36.6; O2SAT 96
[2023-01-20 09:01] LABS: Glucose, Whole Blood 210 mg/dL (60-115)
[2023-01-20] MEDS: Lactated Ringers 1,000 ML 100 ML IVCONT (09:19)
--- NOTE | 2023-01-20 10:14 | MHC.SHP ---
Pre-Procedural Eval Section A Date of Service: 01/20/23 Section B Chief Complaint: Encounter for screening for malignant neoplasm Relevant Family History (Specify if Yes): No Relevant Social History: None Present Medications: see Short Stay Collaborative assessment Medical History: Significant History (Acid reflux Ambulates with cane Chronic constipation COVID-19 vaccine series started Diabetes Eosinophilia History of depression Leukocytosis Normocytic anemia Rheumatoid arthritis) History of Previous Operations: Relevant previous surgery/procedure and date(s) (History of back surgery History of cataract extraction History of colonoscopy History of esophagogastroduodenoscopy (EGD) History of surgical removal of lesion) Allergies: Allergies Allergy/AdvReac Type Severity Reaction Status Date / Time No Known Allergies Allergy Verified 10/19/22 13:30 Review of Systems Sugical H&P ROS: Negative: Constitution, Cardiovascular, Respiratory, Neurological, Psychiatric, Hem-Onc, Allergic/Immunologic, Gastrointestinal, Genitourinary, Musculoskeletal, Integumentary, Endocrine and Eyes/Ears/Nose/Throat Exam Surgical H&P Exam: Normal: HEENT, Normal: Heart, Normal: Lungs, Normal: Extremities, Normal: Abdomen, Normal: Skin and Normal: Neurological Plan Diagnosis/Plan: Unchanged I have reviewed the history and physical and performed a pertinent physical examination on my patient. No changes have occurred unless specified. Time Spent With Patient Time: Total time managing care of this patient today ____ minutes.
--- NOTE | 2023-01-20 10:16 | PC.NURSE ---
pt sts during surgery in [place] SHE was intubated and tube in wrong place causing pna everyone aware
--- NOTE | 2023-01-20 10:30 | W.PM.OPN ---
Operative Note Operative Note Date of Service: 01/20/23 Narrative: Operative Information Procedure Description: Colonoscopy Indication: hx of non specific colitis, polyps Anesthesia: MAC COLONOSCOPY Instrument: Olympus variable stiffness pediatric scope 190L Colonoscopy Monitoring: Vital signs and clinical assessment, continuous EKG monitoring, Pulse oximetry, Carbon Dioxide monitoring and blood pressure monitoring were done throughout the procedure. Colon withdrawal time was [] minutes. Procedure: The patient was placed in the left lateral decubitis position and pre-procedure medications were administered. After a digital rectal examination of the ano-rectum, the video colonoscope was inserted into the rectum and advanced through the colon to the cecum/TI. The colonoscope was slowly withdrawn in a retrograde panoramic fashion and the colon mucosa was carefully examined including a retroflexed view of the rectum. Findings and interventions are described below. Procedure Difficulty: moderate due to looping Findings: Severe hassan diverticulosis with wide mouthed tics Terminal Ileum-normal, bx taken Bx taken from right, left and rectum in separate jars Cecum: normal Ascending Colon: normal Transverse Colon - 5-7 mm sessile polyp removed with cold snare Descending Colon:normal Sigmoid Colon:? severe diverticulosis with narrowing of lumen and wide mouthed tics Rectum: Retroflexion with medium sized internal hemorrhoids, grade I Anorectum - normal Colon preparation: [place] Bowel Preparation Scale Right colon; 2 Transverse colon: 2 Left colon; 1-2 (0 = Unprepared colon segment with mucosa not seen due to solid stool that cannot be cleared. 1 = Portion of mucosa of the colon segment seen, but other areas of the colon segment not well seen due to staining, residual stool and/or opaque liquid. 2 = Minor amount of residual staining, small fragments of stool and/or opaque liquid, but mucosa of colon segment seen well. 3 = Entire mucosa of colon segment seen well with no residual staining, small fragments of stool or opaque liquid) Impression and Post Procedure Diagnosis: polyp internal hemorrhoids diverticular disease Plan: High fiber diet leaflet Avoid straining at stool, epsom salts and sitz bath, anusol supps or cream Repeat Colonoscopy in 3 years due to fair prep on the left or earlier if clinically indicated Above findings were reviewed with the patient and relevant handouts were provided if indicated.
[2023-01-20 10:58] VITALS: BP 88/48; PULSE 63; RESP 16; TEMP 36.2; O2SAT 93
[2023-01-20 11:13] VITALS: BP 129/67; PULSE 61; RESP 16; TEMP 36.5; O2SAT 95
== END 2023-01-20 11:45 | disposition home or self-care (01) ==
PROVIDERS: PCP Internal Medicine Geriatric Medicine; Visit Provider Internal Medicine Gastroenterology
PROC: 0DJD8ZZ Inspection of Lower Intestinal Tract, Via Natural or Artificial Opening Endoscopic (ICD-10-PCS; CPT 45378; principal; 2023-01-20 10:10)
DX: Z12.11 Encounter for screening for malignant neoplasm of colon (principal); Z86.010 Personal history of colon polyps; K63.5 Polyp of colon; K57.30 Diverticulosis of large intestine without perforation or abscess without bleeding; K64.0 First degree hemorrhoids; K59.09 Other constipation; K21.9 Gastro-esophageal reflux disease without esophagitis; D64.9 Anemia, unspecified; D72.10 Eosinophilia, unspecified; M06.9 Rheumatoid arthritis, unspecified; E11.9 Type 2 diabetes mellitus without complications; Z79.84 Long term (current) use of oral hypoglycemic drugs; Z79.899 Other long term (current) drug therapy; Z99.89 Dependence on other enabling machines and devices; Z87.891 Personal history of nicotine dependence
CPT/HCPCS: 45385; 45380; 82947; 88305

== ENCOUNTER → 2023-02-11 09:54 | Outpatient (BNVA) | payer OTHER, SELFPAY | PROVIDERS: PCP Internal Medicine Geriatric Medicine; Visit Provider Physician Assistant | DX: K22.70 Barrett's esophagus without dysplasia (principal); K59.09 Other constipation; K21.9 Gastro-esophageal reflux disease without esophagitis; K57.90 Diverticulosis of intestine, part unspecified, without perforation or abscess without bleeding; Z86.010 Personal history of colon polyps | CPT/HCPCS: 99212 ==

== ENCOUNTER 2023-04-12 09:30 | Outpatient (REF) | payer OTHER, SELFPAY ==
[2023-04-12 11:20] LABS: Prostate Specific Antigen 2.97 ng/mL (<0.05-4.0)
[2023-04-15 20:09] LABS: Testosterone, Free 30.5 pg/mL (30.0-135.0); Testosterone, Total 144 ng/dL (250-1100)
== END 2023-04-12 09:31 | disposition home or self-care (01) ==
LOC: HO.10HDL 09:30
PROVIDERS: Visit Provider Nurse Practitioner Family
DX: E11.69 Type 2 diabetes mellitus with other specified complication (principal); N52.1 Erectile dysfunction due to diseases classified elsewhere; N40.0 Benign prostatic hyperplasia without lower urinary tract symptoms; E29.1 Testicular hypofunction; Z12.5 Encounter for screening for malignant neoplasm of prostate
CPT/HCPCS: 36415; 84153; 84402; 84403

== ENCOUNTER 2023-05-05 13:02 | Outpatient (AMB) | payer OTHER, SELFPAY ==
--- NOTE | 2023-05-05 13:08 | A.OFFVIS_ITS ---
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) (testosterone 144) (free test 30.5) Urology Medication: terazosin, testosterone Blood Thinner: aspirin PVR: 10ml's Truck Washer Required: Yes Truck Washer Name: ROSA Accompanied by: Self / Same As Patient Allergies No Known Allergies Allergy (Verified 05/05/23 13:46) Medication List - Last Reconciled 05/05/23 by SWETA Fam- allopurinol 100 mg PO DAILY amlodipine 10 mg PO DAILY ascorbic acid (vitamin C) (Vitamin C) 500 mg PO DAILY aspirin 81 mg PO DAILY bisacodyl (Dulcolax (bisacodyl)) 10 mg [place] DAILY PRN blood sugar diagnostic As directed buspirone 5 mg PO TID diclofenac sodium 1% grams topical BID docusate sodium (Colace) 200 mg (2 x 100 mg) PO BEDTIME empagliflozin (Jardiance) 10 mg PO DAILY empagliflozin (Jardiance) 25 mg PO DAILY famotidine 40 mg PO DAILY ferrous sulfate (FeroSul) 325 mg PO DAILY lisinopril 40 mg PO DAILY meclizine 25 mg PO TID PRN methylcellulose (laxative) (Citrucel Sugar Free oral powder) 2 grams PO DAILY PRN 30 days multivit-iron sulf-folic acid 15 mg iron- 400 mcg (Tab-A-Mark Multivitamin w- iron) 1 tab PO DAILY omeprazole 20 mg PO DAILY 30 days polyethylene glycol 3350 (Miralax) 17 grams PO DAILY pravastatin 20 mg PO DAILY semaglutide (Ozempic) mg subcut terazosin 5 mg PO BEDTIME 90 days testosterone 60.75 mg transdermal DAILY 30 days HPI HPI Comments History of Present Illness Details Francisco is a pleasant 77 year old Prydeinig speaking patient of Dr. Lund. He has a past medical history of acid reflux, chronic constipation, diabetes, depression, normocytic anemia, and rheumatoid arthritis. He presents to the office today for follow-up regarding his hypogonadism and benign prostatic hyperplasia. He reports to be doing and feeling well. When asked he reports significant improvement in lower urinary tract symptoms on terazosin 5 mg daily. Recent PSA and testosterone levels reviewed with the patient today. T level low at 144 however patient reports he has not been complaint with administration of testosterone as prescribed. Discussed at length improtance of compliance. Discussed obtaining labs in 3 months for further assessment evaluation. He otherwise denies any urinary issues or concerns at this time. He denies dysuria, hematuria, fever, and or chills. Testosterone levels are as follows: 12/24-155, 02/23-124, 04/25-78, 06/25-495, 10/27-458, 09/27-125, 02/25-156, 09/28-381, 04/28-144 PSAs are as follows: 02/24--2.2, 09/27--1.7, 04/28--3.0 Discussed at length importance of managing diabetes for improvement in lower urinary tract symptoms as well as overall health and well-being. He otherwise offers no issues or concerns at this time. [facility] Medical History Acid reflux Ambulates with cane Chronic constipation COVID-19 vaccine series started Diabetes Eosinophilia History of depression Leukocytosis Normocytic anemia Rheumatoid arthritis Surgical History History of back surgery History of cataract extraction History of colonoscopy History of esophagogastroduodenoscopy (EGD) History of surgical removal of lesion Family History Mother Diabetes Father No problems noted. Social History Household Members: Spouse Housing: House Alcohol intake: never Patient Tobacco Use Status: Former Tobacco user e-Cigarette/Vaping Use: Never Used service: No Current occupational status: retired Current occupation: rt handed Review of Systems Const Reports as per HPI Eyes Reports no additional complaints ENT Reports no additional complaints Card Reports as per HPI Resp Reports no additional complaints GI Reports as per HPI Reports as per HPI Neuro Reports as per HPI Psych Reports as per HPI Endo Reports no additional complaints Physical Exam Const General: cooperative, healthy appearing, comfortable, no acute distress, well developed, alert and awake Orientation/consciousness: patient oriented x3 Limitations: no limitations HEENT Head: Yes normal to inspection, Yes normocephalic and Yes atraumatic Ears: hearing grossly normal bilaterally Eyes General: appearance normal, both eyes and all related structures Neck Neck: Yes normal visual inspection and Yes trachea midline Chest Chest palpation & inspection: normal inspection of the chest Resp Effort & Inspection: normal respiratory effort and able to speak in complete sentences Cardio Rate: regular rate GI Inspection: Yes normal to inspection General: Yes no CVA tenderness Back/Spine/Pelvis Back: no CVA tenderness Skin General skin exam: no rashes or lesions noted Neuro General: patient oriented x3 Extrem General: Yes normal to inspection Psych Appearance: grossly normal and well kempt Mental Status: mental status grossly normal Speech and movement: Normal speech and movement present and Clear speech present Affect: normal affect Attitude: cooperative Thought process: Normal thought process present Thought content: Normal thought content present Insight: Fair insight present (Psych) Judgement: Fair judgement present (Psych) Results AMB Urinalysis, Automated UA Leukoctes 0 Gab/uL Last Edit by [employer] on 05/05/23 13:31 UA Nitrite Last Edit by [employer] on 05/05/23 13:31 UA Urobilinogen 0.2 mg/dL Last Edit by [employer] on 05/05/23 13:31 UA Protein 0 mg/dL Last Edit by [employer] on 05/05/23 13:31 UA pH 6.0 Last Edit by [employer] on 05/05/23 13:31 UA Blood 0 Alf/uL Last Edit by [employer] on 05/05/23 13:31 UA Specific [place] 1.010 Last Edit by [employer] on 05/05/23 13:31 UA Ketone Last Edit by [employer] on 05/05/23 13:31 UA Bilirubin 0 mg/dL Last Edit by [employer] on 05/05/23 13:31 UA Glucose 1000 mg/dL Last Edit by [employer] on 05/05/23 13:31 Results Reviewed Results Reviewed: Laboratory Last Values Urine pH (Auto) 6.0 05/05/23 13:19 Specific [place] (Auto) 1.010 05/05/23 13:19 Urine Protein (Auto) 0 mg/dL 05/05/23 13:19 Glucose (UA)(Auto) 1000 mg/dL 05/05/23 13:19 Urine Blood (Auto) 0 Alf/uL 05/05/23 13:19 Urine Bilirubin (Auto) 0 mg/dL 05/05/23 13:19 Urine Urobilinogen (Auto) 0.2 mg/dL 05/05/23 13:19 Leukocyte Esterase (Auto) 0 Gab/uL 05/05/23 13:19 Assessment & Plan Assessment & Plan (1) Hypogonadism in male: Code(s): E29.1 - Testicular hypofunction (2) Lower urinary tract symptoms: Code(s): R39.9 - Unspecified symptoms and signs involving the genitourinary system Plan In office urinalysis results reviewed with the patient today; as noted above. PVR 10 mL. Discussed at length importance of managing diabetes for improvement in lower urinary tract symptoms as well as overall health and well-being. Discussed and stressed the importance of taking medication as prescribed. Recent testosterone and PSA results reviewed with the patient today. Continue 5 mg of terazosin as prescribed. Patient reports significant improvement in lower urinary tract symptoms on 5 mg of terazosin daily and is happy with his current voiding parameters with this medication. Discussed compliance of testosterone as prescribed and will reassess testosterone levels in 3 months He patient denies any bothersome urinary issues or concerns at this time. Testosterone, free and total, and CBC in 3 months. Follow-up in 3 months with lab to be completed prior; or sooner with any issues, concerns, and or questions. Orders: Orders Complete Blood Count no Diff 05/02/23 E29.1 - Testicular hypofunction Testosterone, Free/Total 3 Months E29.1 - Testicular hypofunction Complete Blood Count no Diff 3 Months E29.1 - Testicular hypofunction AMB Urinalysis Automated Today Z13.9 - Encounter for screening, unspecified Patient Instructions: The patient had an opportunity to ask questions regarding the treatment plan. All questions were answered. Physical exam, labs, and imaging were discussed and reviewed in detail. As well as risks, benefits, and discussion of treatment choices. No major barriers to understanding were identified. The patient expressed understanding and agreement with the above treatment plan. The patient was made aware they should contact our office by phone for worsening of their current condition, the appearance of new symptoms, or with any questions or concerns. Compliance is encouraged with any medications and follow up testing that is ordered. It is a privilege to be allowed the opportunity to participate in? your urological care.? Again, if you have any questions or concerns If you have any questions or concerns please do not hesitate to contact me. The office is [phone]. This note is constructed using voice recognition software. While every effort has been made to ensure accuracy flavoring maker errors may have been included. Yours sincerely, BETSY Fam Coding Level of Care Code Est Pt Level 3 (46398) Diagnoses Hypogonadism in male E29.1 Lower urinary tract symptoms R39.9
== END 2023-05-05 14:23 | disposition home or self-care (01) ==
PROVIDERS: PCP Internal Medicine Geriatric Medicine; Visit Provider Nurse Practitioner Family
DX: E29.1 Testicular hypofunction (principal); R39.9 Unspecified symptoms and signs involving the genitourinary system
CPT/HCPCS: 99213

== ENCOUNTER → 2023-05-05 13:02 | Outpatient (BNVA) | payer OTHER, SELFPAY | PROVIDERS: Visit Provider Nurse Practitioner Family | DX: E29.1 Testicular hypofunction (principal); R39.9 Unspecified symptoms and signs involving the genitourinary system; Z79.82 Long term (current) use of aspirin; Z79.899 Other long term (current) drug therapy | CPT/HCPCS: 81003; 99212 ==

== ENCOUNTER 2023-05-11 08:48 | Outpatient (REF) | payer OTHER, SELFPAY ==
[2023-05-11 11:39] LABS: Basophils Absolute Auto 0.1 X10*3/uL (0.0-0.2); Basophils Percent Auto 1.3 % (0-2); Eosinophils Percent Auto 19.3 % (0-4); Hematocrit 45.8 % (42.0-52.0); Hemoglobin 14.6 g/dl (14.0-18.0); Imm Gran Abs Auto 0.05 X10*3/uL (0.00-0.03); Imm Gran Pct Auto 0.5 % (0.0-0.4); Lymphocytes Absolute Auto 2.8 X10*3/uL (1.2-4.9); Lymphocytes Percent Auto 26.2 % (20-40); MANUAL DIFF FLAG SCAN; Mean Corpuscular HGB Conc 31.9 g/dl (31.0-36.0); Mean Corpuscular Volume 87.7 fL (80.0-98.0); Mean Platelet Volume 10.2 fL (9.4-12.4); Monocytes Absolute Auto 0.8 X10*3/uL (0.1-1.2); Monocytes Percent Auto 7.9 % (2-11); Neutrophils Absolute Auto 4.7 x10*3/uL (2.0-8.3); Neutrophils Percent Auto 44.8 % (45-73); Platelet Count 290 X10*3/uL (160-400); Red Blood Count 5.22 X10*6/uL (4.60-5.80); Red Cell Distribution Width 13.6 % (11.0-16.0); SCAN SMEAR FLAG 1; White Blood Count 10.5 X10*3/uL (4.8-10.8)
[2023-05-11 12:02] LABS: SLIDE REVIEW VERIFIED
[2023-05-11 12:30] LABS: Alanine Aminotransferase 34 U/L (0-40); Albumin Level 4.2 g/dL (3.5-5.0); Alkaline Phosphatase 100 U/L (39-117); Anion Gap 14 (12-20); Aspartate Amino Transferase 26 U/L (5-37); Bilirubin Direct 0.1 mg/dL (0.0-0.5); Bilirubin Total 0.3 mg/dL (0.0-1.0); Blood Urea Nitrogen 20 mg/dL (9-16); Calcium 9.8 mg/dL (8.4-10.2); Carbon Dioxide 24 mmol/L (22-29); Chloride 106 mmol/L (96-108); Cholesterol 165 mg/dL (<200); Estimated Glomerular Filt Rate 54; Glucose Random 160 mg/dL (60-115); HDL Cholesterol 36 mg/dL (>40); LDL Cholesterol Calculated 75 mg/dL (<100); Potassium 4.3 mmol/L (3.3-5.1); Sodium 140 mmol/L (135-145); Total Protein 7.4 g/dL (6.5-8.0); Triglycerides 274 mg/dL (<150)
[2023-05-11 12:31] LABS: Estimated Average Glucose 217 mg/dL; Hemoglobin A1c % 9.2 % (<6.0)
== END 2023-05-11 08:49 | disposition home or self-care (01) ==
LOC: HO.HHCL 08:48
PROVIDERS: Visit Provider Internal Medicine Geriatric Medicine
DX: E11.69 Type 2 diabetes mellitus with other specified complication (principal)
CPT/HCPCS: 36415; 80048; 80061; 80076; 83036; 85025

== ENCOUNTER 2023-05-17 13:35 | Outpatient (AMB) | payer OTHER, SELFPAY ==
[2023-05-17 13:42] VITALS: BP 130/74; PULSE 71; TEMP 36.4; O2SAT 98; BMI 26.4
--- NOTE | 2023-05-17 13:42 | MHC.OFFVIS ---
Intake Vital Signs 05/17/23 13:42 Height 5 ft Weight 135 lb 2.294 oz BMI 26.4 BP 130/74 Blood Pressure Location Rt brachial Position Sitting Pulse 71 Pulse Source Pulse Oximeter Temp 97.6 F Temp Source Skin Pulse Oximetry (%) 98 Intake Visit Reasons: Gout Intake Note: Pt seen today for gout follow up. Reports lump in back that is painful. C/o bl hip pain, and calf pain at night time Hospice Volunteer Coordinator Required: No Accompanied by: Self / Same As Patient Allergies No Known Allergies Allergy (Verified 05/17/23 13:45) Medication List - Last Reconciled 05/17/23 by Tam Burroughs MD allopurinol 100 mg PO DAILY amlodipine 10 mg PO DAILY aspirin 81 mg PO DAILY bisacodyl (Dulcolax (bisacodyl)) 10 mg [place] DAILY PRN blood sugar diagnostic As directed buspirone 5 mg PO TID diclofenac sodium 1% grams topical BID docusate sodium (Colace) 200 mg (2 x 100 mg) PO BEDTIME empagliflozin (Jardiance) 10 mg PO DAILY empagliflozin (Jardiance) 25 mg PO DAILY famotidine 40 mg PO DAILY ferrous sulfate (FeroSul) 325 mg PO DAILY lisinopril 40 mg PO DAILY meclizine 25 mg PO TID PRN methylcellulose (laxative) (Citrucel Sugar Free oral powder) 2 grams PO DAILY PRN 30 days methylcellulose (with sugar) 2 gram/19 gram (Fiber Therapy (methylcellulose-sugar)) PO multivit-iron sulf-folic acid 15 mg iron- 400 mcg (Tab-A-Mark Multivitamin w-iron) 1 tab PO DAILY omeprazole 20 mg PO DAILY 30 days polyethylene glycol 3350 (Miralax) 17 grams PO DAILY pravastatin 20 mg PO DAILY pregabalin 150 mg PO BID semaglutide (Ozempic) mg subcut tamsulosin 0.8 mg PO DAILY terazosin 5 mg PO BEDTIME 90 days testosterone 60.75 mg transdermal DAILY 30 days HPI HPI Comments History of Present Illness Details This is a 77-year-old male with gout who presents for follow-up. He was last evaluated by Lynette Reed 08/2022. On allopurinol 100 mg daily. No gout flares for long period of time. Patient states that he is having a swelling in his midback. Painful to touch. States that he had a similar swelling 20 years ago that was excised. He was told it was a lipoma. He has lower back pain when he lifts heavy objects. He also has burning pain in his calves at night. [facility] Medical History Chronic constipation Diabetes COVID-19 vaccine series started History of depression Ambulates with cane Acid reflux Eosinophilia Leukocytosis Rheumatoid arthritis Normocytic anemia Surgical History History of esophagogastroduodenoscopy (EGD) History of cataract extraction History of back surgery History of colonoscopy History of surgical removal of lesion Family History Mother Diabetes Father No problems noted. Social History Household Members: Spouse Housing: House Alcohol intake: never Patient Tobacco Use Status: Former Tobacco user e-Cigarette/Vaping Use: Never Used service: No Current occupational status: retired Current occupation: rt handed Review of Systems Musc Reports back pain and Reports tingling Skin/Breast Reports skin swelling Neuro Reports tingling Physical Exam Vital Signs: Last Vital Signs Temp 97.6 F 05/17/23 13:42 Pulse 71 05/17/23 13:42 BP 130/74 05/17/23 13:42 Pulse Ox 98 05/17/23 13:42 BMI result Body Mass Index 26.4 Const General: cooperative, healthy appearing and comfortable Nutritional Appearance: average body habitus Orientation/consciousness: patient oriented x3 Limitations: no limitations HEENT Head: Yes normocephalic and Yes atraumatic Mouth: moist mucous membranes Resp Effort & Inspection: normal respiratory effort and able to speak in complete sentences Auscultation: clear to auscultation bilaterally Skin Other: Soft tissue swelling in the mid thoracic area, mildly erythematous and painful to touch Neuro General: patient oriented x3 Extrem Other: osteoarthritic changes of both hands with no active synovitis No tophi noted Negative straight leg raise test bilaterally No trochanteric bursa area tenderness bilaterally Assessment & Plan Assessment & Plan (1) Gout: Code(s): M10.9 - Gout, unspecified Qualifiers: Gout site: multiple sites Gout etiology: idiopathic Chronicity: chronic Presence of tophus: without tophus Qualified Code(s): M1A.09X0 - Idiopathic chronic gout, multiple sites, without tophus (tophi) Plan: 77-year-old male with crystal proven gout returns for follow-up. He has had no gout flares on allopurinol 100 mg daily. Most recent uric acid level was at goal. Continue allopurinol 100 mg daily. Check uric acid level before next visit in 6 month (2) Lipoma: Code(s): D17.9 - Benign lipomatous neoplasm, unspecified Qualifiers: Lipoma location: trunk Qualified Code(s): D17.1 - Benign lipomatous neoplasm of skin and subcutaneous tissue of trunk Plan: Referred to general surgery (3) Lumbar degenerative disc disease: Code(s): M51.36 - Other intervertebral disc degeneration, lumbar region Plan: Referred to physical therapy Plan I spent 26 minutes reviewing patient's chart, evaluating patient, ordering diagnostic workup, counseling patient and documenting in the chart Orders: Orders PT Evaluation and Treatment Today M51.36 - Other intervertebral disc degeneration, lumbar region Comprehensive Met. Panel 6 Months M10.9 - Gout, unspecified Uric Acid 6 Months M10.9 - Gout, unspecified Referrals General Surgery Referral D17.9 - Benign lipomatous neoplasm, unspecified Coding Level of Care Code Est Pt Level 4 (08687) Diagnoses Idiopathic chronic gout of multiple sites without tophus M1A.09X0 Gout site: multiple sites Gout etiology: idiopathic Chronicity: chronic Presence of tophus: without tophus Lipoma of torso D17.1 Lipoma location: trunk Lumbar degenerative disc disease M51.36
== END 2023-05-17 14:04 | disposition home or self-care (01) ==
PROVIDERS: PCP Internal Medicine Geriatric Medicine; Referring Provider Internal Medicine Geriatric Medicine; Visit Provider Student in an Organized Health Care Education/Training Program
DX: M1A.09X0 Idiopathic chronic gout, multiple sites, without tophus (tophi) (principal); D17.1 Benign lipomatous neoplasm of skin and subcutaneous tissue of trunk; M51.36 Other intervertebral disc degeneration, lumbar region
CPT/HCPCS: 99214

== ENCOUNTER → 2023-05-17 13:35 | Outpatient (BNVA) | payer OTHER, SELFPAY | PROVIDERS: PCP Internal Medicine Geriatric Medicine; Referring Provider Internal Medicine Geriatric Medicine; Visit Provider Student in an Organized Health Care Education/Training Program | DX: M1A.09X0 Idiopathic chronic gout, multiple sites, without tophus (tophi) (principal); D17.1 Benign lipomatous neoplasm of skin and subcutaneous tissue of trunk; M51.36 Other intervertebral disc degeneration, lumbar region; Z79.899 Other long term (current) drug therapy | CPT/HCPCS: 99212 ==

== ENCOUNTER 2023-05-21 09:19 | Outpatient (REF) | payer OTHER, SELFPAY ==
--- NOTE | ~2023-05-21 | US_ITS ---
EXAMINATION: US ABDOMEN COMPLETE CLINICAL INFORMATION: Abdominal pain/bloating. COMPARISON: MRI abdomen 04/24/2022. Ultrasound abdomen complete 04/25/2020. Renal ultrasound 11/29/2019. CT abdomen and pelvis 06/29/2019. TECHNIQUE: Real-time imaging of the abdominal viscera. Limited visualization due to bowel gas. FINDINGS: PANCREAS: Imaged portion of pancreatic body appears heterogeneous. Limited visualization of pancreas due to bowel gas. ABDOMINAL AORTA: Nonaneurysmal. INFERIOR VENA CAVA: Visualized portions are normal. LIVER: Diffuse increase in echogenicity of the liver is characteristic of primary hepatocellular disease, possibly due to hepatic steatosis and further limits visualization. Hypoechoic area within the liver adjacent to the gallbladder may represent an area of focal sparing within a fatty liver. GALLBLADDER: Gallbladder wall thickening of 0.4 cm. No gallstones identified. COMMON BILE DUCT: Normal in caliber measuring 0.2 cm in diameter. RIGHT KIDNEY: No hydronephrosis. No renal calculi. Limited visualization. Multiple renal cysts, largest 9.5 x 8.5 x 9.2 cm in lateral midpole with benign features. There is no indication for follow up imaging. The kidney measures 11.0 cm in maximum dimension. LEFT KIDNEY: No hydronephrosis. No renal calculi. Limited visualization. The kidney measures 10.1 cm in maximum dimension. SPLEEN: Limited visualization. The spleen measures 6.4 cm in maximum dimension. FREE FLUID: None. US/US abdomen complete IMPRESSION: 1. Diffuse increase in echogenicity of the liver is characteristic of primary hepatocellular disease, possibly due to hepatic steatosis and further limits visualization. Hypoechoic area within the liver adjacent to the gallbladder may represent an area of focal sparing within a fatty liver. 2. Persistent gallbladder wall thickening with gallbladder wall measurement of 0.4 cm. No gallstones identified. 3. Imaged portion of pancreatic body again appears heterogeneous. Limited visualization of pancreas due to bowel gas.
== END 2023-05-21 09:20 | disposition home or self-care (01) ==
LOC: HO.US 09:19
PROVIDERS: PCP Internal Medicine Geriatric Medicine; Visit Provider Internal Medicine
DX: R10.9 Unspecified abdominal pain (principal)
CPT/HCPCS: 76700

== ENCOUNTER 2023-05-24 10:44 | Outpatient (AMB) | payer OTHER, SELFPAY ==
--- NOTE | 2023-05-24 10:46 | MHC.OFFVIS ---
Intake Vital Signs 05/24/23 10:49 Height 4 ft 11 in Weight 135 lb BMI 27.3 BP 141/63 H Blood Pressure Location Rt brachial Position Sitting Pulse 74 Intake Visit Reasons: Lipoma/ Mid back Intake Note: Patient referred for lipoma on mid back. Has been present for 1 yr. C/o bothersome, enlarging. Denies pain, bleeding. Hx of bcc on nose. Human Resources Benefits Specialist Required: Yes Human Resources Benefits Specialist Name: Celine SIMON Accompanied by: Self / Same As Patient Allergies No Known Allergies Allergy (Verified 05/24/23 10:51) HPI HPI Comments History of Present Illness Details Patient presents for evaluation of a right mid back mass/cyst. He has had this many years time. His increasing size, become more symptomatic. He wished to have it removed. Chart was reviewed patient evaluated [facility] Medical History Chronic constipation Diabetes COVID-19 vaccine series started History of depression Ambulates with cane Acid reflux Eosinophilia Leukocytosis Rheumatoid arthritis Normocytic anemia Surgical History History of esophagogastroduodenoscopy (EGD) History of cataract extraction History of back surgery History of colonoscopy History of surgical removal of lesion Family History Mother Diabetes Father No problems noted. Social History Household Members: Spouse Housing: House Alcohol intake: never Patient Tobacco Use Status: Former Tobacco user e-Cigarette/Vaping Use: Never Used service: No Current occupational status: retired Current occupation: rt handed Physical Exam Vital Signs: Last Vital Signs Pulse 74 05/24/23 10:49 BP 141/63 H 05/24/23 10:49 BMI result Body Mass Index 27.3 Chest Other: Chest breath sounds bilaterally, HS 1 in 2 GI Other: Abdomen soft, benign Back/Spine/Pelvis Other: Patient has a right mid back large sebaceous cyst measuring approximately 5 x 4 cm. Assessment & Plan Assessment & Plan (1) Sebaceous cyst: Code(s): L72.3 - Sebaceous cyst Plan Risks, benefits, alternatives of sebaceous cyst excision reviewed with the patient and included but not limited to bleeding, infection, recurrence, numbness, pain, scarring, seroma formation, distance and the patient wishes to proceed. All questions were answered. Arrangements were made for this. Coding Level of Care Code New Pt Level 4 (90781) Diagnoses Sebaceous cyst L72.3
[2023-05-24 10:49] VITALS: BP 141/63; PULSE 74; BMI 27.3
== END 2023-05-24 10:59 | disposition home or self-care (01) ==
PROVIDERS: PCP Internal Medicine Geriatric Medicine; Referring Provider Student in an Organized Health Care Education/Training Program; Visit Provider Surgery
DX: L72.3 Sebaceous cyst (principal)
CPT/HCPCS: 99204

== ENCOUNTER → 2023-05-24 10:44 | Outpatient (BNVA) | payer OTHER, SELFPAY | PROVIDERS: PCP Internal Medicine Geriatric Medicine; Referring Provider Student in an Organized Health Care Education/Training Program; Visit Provider Surgery ==

== ENCOUNTER 2023-06-02 12:49 | Outpatient (REF) | payer OTHER, SELFPAY ==
[2023-06-02 17:05] LABS: Appearance Urine Clear; Color Urine Dark Yellow; Glucose Urine UA >=1000 mg/dL (Negative); Leukocyte Esterase Urine Negative (Negative); Nitrite Urine Positive (Negative); PH 5.5 (5.0-9.0); UMIC TRIGGER UA YES; Urine Blood Negative (Negative); Urine Ketones Negative (Negative); Urine Protein Negative (Neg-Trace)
[2023-06-02 17:19] LABS: Bacteria Urine None Seen (None Seen); Hyaline Casts Urine 0-2 /LPF (0-2); RBC Urine 0-2 /HPF (0-2); Squamous Epithelial Cell Urine 0-2 /HPF (0-2); WBC Urine 0-5 /HPF (0-5)
== END 2023-06-02 12:50 | disposition home or self-care (01) ==
LOC: HO.LAB 12:49
PROVIDERS: PCP Internal Medicine Geriatric Medicine; Visit Provider Physician Assistant
DX: R10.9 Unspecified abdominal pain (principal); R30.0 Dysuria; K21.9 Gastro-esophageal reflux disease without esophagitis; R10.13 Epigastric pain; Z86.010 Personal history of colon polyps
CPT/HCPCS: 81001; 81003; 99212

== ENCOUNTER 2023-06-02 12:49 | Outpatient (AMB) | payer OTHER, SELFPAY ==
--- NOTE | 2023-06-02 12:56 | A.OFFVIS_ITS ---
Intake Vital Signs 06/02/23 12:57 Height 4 ft 11 in Weight 132 lb 4.438 oz BMI 26.7 BP 141/61 H Blood Pressure Location Lt brachial Position Sitting Pulse 73 Intake Visit Reasons: 3 Month Follow Up Intake Note: Francisco presents in the office as a 3 month follow up. CC: He states that he is having concerns. He said for 3 days he feels like his urine feels like something is going to come out and his stomach has been bothering him. He was having diarrhea but he said it has subsided. Animal Cruelty Investigator Required: Yes Animal Cruelty Investigator Name: [id number] Haley Allergies No Known Allergies Allergy (Verified 06/02/23 12:57) HPI HPI Comments History of Present Illness Details A 77 y/o male with upper abdominal pain- random- nothing secific- lasts the entire day - sometimes worse than others- it does disappear sometimes.Food or not no differrence He stopped coffee and no change- omeprazole Q am-he does not feel it covers his symptoms He EGD 2020 Losing weight- taking ozempic- He says he had kidney stones years ago and that is the same pain he is feeling now -abdomen- dysuria-no hematuria Seen in February- with chronic constipation-name seems to be resolved [facility] Medical History (Updated 06/02/23 @ 14:16 by Laura Cid PA-C) Chronic constipation Diabetes COVID-19 vaccine series started History of depression Ambulates with cane Acid reflux Eosinophilia Leukocytosis Rheumatoid arthritis Normocytic anemia Surgical History History of esophagogastroduodenoscopy (EGD) History of cataract extraction History of back surgery History of colonoscopy History of surgical removal of lesion Family History Mother Diabetes Father No problems noted. Social History Household Members: Spouse Housing: House Alcohol intake: never Patient Tobacco Use Status: Former Tobacco user e-Cigarette/Vaping Use: Never Used service: No Current occupational status: retired Current occupation: rt handed Review of Systems Const All systems reviewed & are unremarkable except as noted in HPI and below Card Denies chest pain and Denies dyspnea Resp Denies dyspnea GI Reports abdominal pain, Denies change in bowel habits, Reports heartburn, Denies nausea and Denies vomiting Physical Exam Vital Signs: Last Vital Signs Pulse 73 06/02/23 12:57 BP 141/61 H 06/02/23 12:57 BMI result Body Mass Index 26.7 Const Other: muscle wasting- face General: cooperative and comfortable Orientation/consciousness: patient oriented x3 Limitations: language barrier Eyes Conjunctivae: conjunctival abnormal (Conjunctiva injected bilaterally no drainage) Resp Effort & Inspection: normal respiratory effort and able to speak in complete sentences Auscultation: clear to auscultation bilaterally and no wheezes Cardio Rate: regular rate Rhythm: regular rhythm GI Palpation (GI): Soft to palpation, Tenderness to palpation present (GI) (Mild epigastric no rebound or guarding) in the epigastrum and no guarding Skin General skin exam: no rashes or lesions noted Neuro General: patient oriented x3 Extrem General: Yes full ROM Psych Appearance: grossly normal and well kempt Mental Status: mental status grossly normal Speech and movement: Normal speech and movement present and Clear speech present Affect: normal affect Attitude: cooperative Thought process: Normal thought process present Thought content: Normal thought content present Insight: Good insight present (Psych) Judgement: Good judgement present (Psych) Results Reviewed Results Reviewed: lucita: Francisco Hernandez Age/Sex: 75/M Attending: Haris Shah MD : 1945 Submitted by: Haris Shah MD Copies to: CAMILA CHARLES MD MR #: [id number] Status: [facility] Collected: 11/20/20 Location: [facility] Received: 11/20/20 Diagnosis A. Duodenum, biopsy: Duodenal mucosa within normal limits; preserved villous ar chitecture and no increased intraepithelial lymphocytes. B. Stomach, biopsy: Gastric antral and body mucosa within normal limits; negative for Helicobacter pylori, intestinal metaplasia and dysplasia. C. Gastroesophageal junction, biopsy: Squamocolumnar junctional mucosa with mild chronic inactive inflammation and intestinal metaplasia consistent with Hare's esophagus; negative for dysplasia (see comment). D. Esophagus, random, biopsy: Squamous mucosa within normal limits; negative for inflammation (including eosinophils), fungal organisms, intestinal metaplasia and dysplasia. E. Colon, transverse, polypectomy: Inflammatory polyp. COMMENT (C): These findings are consistent with Hare's esophagus if the biopsies were taken above the anatomic gastroesophageal junction. Clinical and endoscopic correlation is advised. Clinical History Pre-Op Dx: Hx colon polyps, reflux disease Post-Op Dx: Gastritis, esophagitis, diverticulosis, colon polyp, hemorrhoids Microscopic Description Microscopic sections reviewed. Material Received A: Duodenum bx's B: Stomach bx's C: GE junction D: Random esophagus bx's E: Transverse colon polyp Gross Description Received in five parts. Part A: Received in formalin labeled Duodenum bx's are two glistening, semitranslucent, soft, pale, razo, irregular tissue fragments, measuring less than 0.05 and 0.15 cm. in greatest dimension, which are Patient: Francisco Hernandez Age/Sex: 75/M MR#: [id number] Page 1 of 2 US/US abdomen complete IMPRESSION: 1. Diffuse increase in echogenicity of the liver is characteristic of primary hepatocellular disease, possibly due to hepatic steatosis and further limits visualization. Hypoechoic area within the liver adjacent to the gallbladder may represent an area of focal sparing within a fatty liver. 2. Persistent gallbladder wall thickening with gallbladder wall measurement of 0.4 cm. No gallstones identified. 3. Imaged portion of pancreatic body again appears heterogeneous. Limited visualization of pancreas due to bowel gas. Assessment & Plan Assessment & Plan (1) Dysuria: Comment: Dysuria Diabetic Code(s): R30.0 - Dysuria Plan: UA/C&S will sent to PCP (2) Acid reflux: Comment: Acid reflux despite PPI,-will increase omeprazole Avoid culprits- Always in good spirits Code(s): K21.9 - Gastro-esophageal reflux disease without esophagitis (3) History of colon polyps: Comment: Due for polyp surveillance 3 years if in good health Code(s): Z86.010 - Personal history of colonic polyps (4) Epigastric pain: Comment: A Code(s): R10.13 - Epigastric pain Plan: Increase PPI Plan Increase PPI Urinalysis See back 1-2 week Orders: Orders UA and rflx microscopic Today R30.0 - Dysuria Medications: New omeprazole 40 mg (2 x 20 mg) PO DAILY 30 days 60 caps 5RF Patient Instructions: Omeprazole 40 mg daily Reviewed reflux precautions Will get urinalysis for dysuria He will call with any questions or concerns any worsening of symptoms Coding Level of Care Code Est Pt Level 4 (13720) Diagnoses Dysuria R30.0 Acid reflux K21.9 History of colon polyps Z86.010 Epigastric pain R10.13 Time Spent (min) 35 Comment [id number] excellent
[2023-06-02 12:57] VITALS: BP 141/61; PULSE 73; BMI 26.7
== END 2023-06-02 13:44 | disposition home or self-care (01) ==
PROVIDERS: PCP Internal Medicine Geriatric Medicine; Visit Provider Physician Assistant
DX: R30.0 Dysuria (principal); K21.9 Gastro-esophageal reflux disease without esophagitis; Z86.010 Personal history of colon polyps; R10.13 Epigastric pain
CPT/HCPCS: 99214

== ENCOUNTER 2023-06-24 06:30 | Day surgery (SDC) | payer OTHER, SELFPAY ==
[2023-06-22 11:30] VITALS: BMI 27.3
--- NOTE | 2023-06-23 09:06 | P.CONAN_ITS ---
HPI - Anesthesia Eval Consult details Narrative: 77yo M for WLE midback LG Sebaceous Cyst s/p colo 01/2023 with MAC Anesthesia Pre-Procedure Meds Is the patient on any of the following meds?: Semaglutide (Ozempic) (Last dose 06/16/23) If Yes to any meds - educate patient: Pt education - increased risk of aspiration and Pt education - possibility of cancelled proc at provider's discretion PMFSH Active Problems Active Problems: All Active Problems (Updated 06/02/23 @ 14:44 by Laura Cid PA-C) Abnormal abdominal ultrasound (Acute) Weight loss (Acute) Epigastric pain (Acute) Dysuria (Acute) Sebaceous cyst (Acute) Lipoma (Acute) Lumbar degenerative disc disease (Acute) Lower urinary tract symptoms (Acute) Diverticulosis (Acute) History of colon polyps (Acute) Hypogonadism in male (Acute) BPH (benign prostatic hyperplasia) (Acute) Gout (Acute) Diabetes (Acute) Tubular adenoma (Acute) Hypogonadism in male (Acute) Anemia (Chronic) Colonoscopy planned (Acute) Joint pain (Acute) Elevated rheumatoid factor (Acute) Barretts esophagus (Acute) Right knee pain (Acute) Effusion, right knee (Acute) Chronic gout of right knee (Acute) Chronic constipation (Acute) Acid reflux (Acute) Past Medical History Medical History Chronic constipation Diabetes COVID-19 vaccine series started History of depression Ambulates with cane Acid reflux Eosinophilia Leukocytosis Rheumatoid arthritis Normocytic anemia Family History Family History Mother Diabetes Father No problems noted. Family history of problems with anesthesia: No Surgical History Surgical History History of esophagogastroduodenoscopy (EGD) History of cataract extraction History of back surgery History of colonoscopy History of surgical removal of lesion History of Problems with Anesthesia: No Social History Social History Household Members: Spouse Housing: House Alcohol intake: never Patient Tobacco Use Status: Former Tobacco user e-Cigarette/Vaping Use: Never Used service: No Current occupational status: retired Current occupation: rt handed Meds Allergies Allergy/AdvReac Type Severity Reaction Status Date / Time No Known Allergies Allergy Verified 07/05/23 10:00 Home Medications Medication Instructions Recorded Confirmed Last Taken Type blood sugar diagnostic #10 ea 07/23/20 06/25/23 01/19/23 History lisinopril 40 mg tablet 40 mg PO DAILY 07/23/20 06/25/23 01/19/23 History pravastatin 20 mg tablet 20 mg PO DAILY 07/23/20 06/25/23 01/19/23 History buspirone 5 mg tablet 5 mg PO TID 10/01/21 06/25/23 01/19/23 History multivitamin-iron sulfate 15 1 tab PO DAILY 10/01/21 06/25/23 01/19/23 History mg-folic acid 400 mcg tablet (Tab-A-Mark Multivitamin w-iron) amlodipine 10 mg tablet 10 mg PO DAILY 05/05/22 06/25/23 01/19/23 History aspirin 81 mg tablet,delayed 81 mg PO DAILY 07/20/22 06/25/23 01/12/23 History release meclizine 25 mg tablet 25 mg PO TID PRN Dizziness 01/18/23 06/25/23 01/19/23 His tory diclofenac sodium 1 % topical gel 1 g topical BID 05/05/23 06/25/23 Unknown History empagliflozin 25 mg tablet 25 mg PO DAILY 05/05/23 06/25/23 Unknown History (Jardiance) semaglutide 1 mg/dose (4 mg/3 mL) 4 mg subcut DAILY 05/05/23 06/25/23 Unknown History subcutaneous pen injector (Ozempic) tamsulosin 0.4 mg capsule 0.8 mg PO DAILY 05/17/23 06/25/23 Unknown History Exam Exam Date and Time: June 23, 2023905 Height,Weight and Vital Signs: Height 4 ft 11 in Weight 61.235 kg Pertinent Lab Results Pertinent Lab Results: Laboratory Tests 05/19/23 13:56 WBC 11.6 H Hgb 14.2 Hct 44.4 Plt Count 289 Sodium 139 Potassium 4.3 Chloride 107 Carbon Dioxide 23 BUN 21 H Creatinine 1.32 Assessment and Plan Assessment Anesthesia Assessment: Chart Reviewed Final Anesthetic Review Family History of Problems with Anesthesia: No History of Problems with Anesthesia: No
--- NOTE | 2023-06-23 19:21 | MHC.SHP ---
Pre-Procedural Eval Section A Date of Service: 06/23/23 The patient is an INPATIENT: No Changes since office visit: No Cold of Flu in the past 2 weeks, No New Medical Problems, No Changes in Medication and No Patient answered all questions The History & Physical has been completed within 30 days and I have reviewed it.: Yes Section B Chief Complaint: Sebaceous cyst Allergies: Allergies Allergy/AdvReac Type Severity Reaction Status Date / Time No Known Allergies Allergy Verified 06/02/23 12:57 Plan I have reviewed the history and physical and performed a pertinent physical examination on my patient. No changes have occurred unless specified. Time Spent With Patient Time: Total time managing care of this patient today ____ minutes.
[2023-06-24] VITALS (8 sets, daily range): BP systolic 89–134; BP diastolic 50–72; PULSE 56–72; RESP 14–16; TEMP 36.1–36.9; O2SAT 94–99
[2023-06-24 07:29] LABS: Glucose, Whole Blood 133 mg/dL (60-115)
[2023-06-24] MEDS: Lactated Ringers 1,000 ML 100 ML IVCONT (07:37)
--- NOTE | 2023-06-24 08:00 | P.CONAN_ITS ---
[facility] Active Problems Active Problems: All Active Problems (Updated 06/02/23 @ 14:44 by Laura Cid PA-C) Abnormal abdominal ultrasound (Acute) Weight loss (Acute) Epigastric pain (Acute) Dysuria (Acute) Sebaceous cyst (Acute) Lipoma (Acute) Lumbar degenerative disc disease (Acute) Lower urinary tract symptoms (Acute) Diverticulosis (Acute) History of colon polyps (Acute) Hypogonadism in male (Acute) BPH (benign prostatic hyperplasia) (Acute) Gout (Acute) Diabetes (Acute) Tubular adenoma (Acute) Hypogonadism in male (Acute) Anemia (Chronic) Colonoscopy planned (Acute) Joint pain (Acute) Elevated rheumatoid factor (Acute) Barretts esophagus (Acute) Right knee pain (Acute) Effusion, right knee (Acute) Chronic gout of right knee (Acute) Chronic constipation (Acute) Acid reflux (Acute) Past Medical History Medical History Chronic constipation Diabetes COVID-19 vaccine series started History of depression Ambulates with cane Acid reflux Eosinophilia Leukocytosis Rheumatoid arthritis Normocytic anemia Family History Family History Mother Diabetes Father No problems noted. Family history of problems with anesthesia: No Surgical History Surgical History History of esophagogastroduodenoscopy (EGD) History of cataract extraction History of back surgery History of colonoscopy History of surgical removal of lesion History of Problems with Anesthesia: No Social History Social History Household Members: Spouse Housing: House Alcohol intake: never Patient Tobacco Use Status: Former Tobacco user e-Cigarette/Vaping Use: Never Used service: No Current occupational status: retired Current occupation: rt handed Meds Allergies Allergy/AdvReac Type Severity Reaction Status Date / Time No Known Allergies Allergy Verified 06/02/23 12:57 Active Medications: Current Medications Lactated Ringer's (Lr) 1,000 mls @ 100 mls/hr IVCONT .Q10H DAVID Last Admin: 06/24/23 07:37 Dose: 100 mls/hr Home Medications Medication Instructions Recorded Confirmed Last Taken Type blood sugar diagnostic #10 ea 11/17/20 09/13/23 05/16/23 History lisinopril 40 mg tablet 40 mg PO DAILY 07/23/20 05/19/23 01/19/23 History pravastatin 20 mg tablet 20 mg PO DAILY 07/23/20 05/19/23 01/19/23 History buspirone 5 mg tablet 5 mg PO TID 10/01/21 05/19/23 01/19/23 History multivitamin-iron sulfate 15 1 tab PO DAILY 10/01/21 05/19/23 01/19/23 History mg-folic acid 400 mcg tablet (Tab-A-Mark Multivitamin w-iron) amlodipine 10 mg tablet 10 mg PO DAILY 05/05/22 05/19/23 01/19/23 History aspirin 81 mg tablet,delayed 81 mg PO DAILY 07/20/22 05/19/23 01/12/23 History release meclizine 25 mg tablet 25 mg PO TID PRN Dizziness 01/18/23 05/19/23 01/19/23 History diclofenac sodium 1 % topical gel 1 g topical BID 05/05/23 05/19/23 Unknown History empagliflozin 25 mg tablet 25 mg PO DAILY 05/05/23 05/19/23 Unknown History (Jardiance) semaglutide 1 mg/dose (4 mg/3 mL) 4 mg subcut DAILY 05/05/23 05/19/23 Unknown History subcutaneous pen injector (Ozempic) tamsulosin 0.4 mg capsule 0.8 mg PO DAILY 05/17/23 05/19/23 Unknown History Exam Exam Date and Time: June 24, 2023 0800 Height,Weight and Vital Signs: Height 4 ft 11 in Weight 61.235 kg Last Vital Signs Temp 98.4 F 06/24/23 07:13 Pulse 62 06/24/23 07:13 Resp 16 06/24/23 07:13 BP 134/69 06/24/23 07:13 Pulse Ox 94 06/24/23 07:13 O2 Del Method Room Air 06/24/23 07:13 Pertinent Lab Results Pertinent Lab Results: Laboratory Tests 06/24/23 07:25 POC Glucose 133 H Airway TM Dist: >3cm Neck ROM: Full Heart: RRR Lungs: CTA Assessment and Plan Assessment Anesthesia Assessment: Anesthesia Plan Discussed Final Anesthetic Review Family History of Problems with Anesthesia: No History of Problems with Anesthesia: No ASA Class: II Final Preanesthetic Review: Meds/Allgs Chart Reviewed, Consent Obtained/Reviewed and Anes Risks/Benef Reviewed Patient Risk: Low Procedure Risk: Low Anesthetic Plan Anesthetic Plan: GA and MAC: Disposition: Standard PACU
--- NOTE | 2023-06-24 09:11 | P.OP_ITS ---
Operative Note Operative Note Date of Service: 06/24/23 Narrative: Preoperative diagnosis: []??Left?mid?back?large?mass Postop diagnosis: ?Same Procedure []?wide?local?excision?back?mass Surgeon: []??Kermit Traveling Passenger Agent: []??Keyshawn Type of Anesthesia: []??MAC Indication for surgery: []??Final?specimen?approximately?6?x?5?cm?consistent?with?a?large?lipoma Findings: []??Patient?brought?to?the?operating?room,?placed?on?operative?table?in?supine?p osition,?after?adequate?level?of?MAC ?anesthesia?was?induced,??patient?was?placed?in?right?lateral?decubitus?position .??Mid?back?was?prepped?and?draped?in?usual?sterile?fashion.??in?the?usual?steri le?fashion?in?usual?sterile?fashion.?? Proposed?incision?site?was?infiltrated?with?1%?lidocaine/0.5?Marcaine. Using?a?transverse?bi-?elliptical?incision?encompassing?the?mass?in?question,?th is?carried?down?through?skin,?subcutaneous?tissue, ?where?a?large?lipoma?extending?down?to?the?back?muscle?was?identified?and?circu mferentially?dissected?out?using?Bovie.??Specimen?was?sent?to?pathology.?? Wound?was?irrigated,?secured?hemostasis,?and ?closed?using?interrupted?inverted?dermal?3-0?Vicryl?sutures?followed?by?Steri-S trips?and?sterile?dressings. Sponge,?needle,?and?instrument?counts?were?reported?correct.??Patient?tolerated? procedure?well?and?emerged?from?anesthesia?stable?condition.?? EBL?minimal
--- NOTE | 2023-06-24 09:20 | HO.POSTANES ---
Post Anesthesia Evaluation Post Anesthesia Evaluation Date of Service: 06/24/23 Vital Signs: Vital Signs Temp Pulse Resp BP Pulse Ox O2 Del Method 06/24/23 07:13 98.4 F 62 16 134/69 94 Room Air Anesthesia: General Mental Status: Awake Pain Control: Satisfactory Nausea/Vomiting: None Hydration: Adequate Anesthesia-Related Issues: No Anes. Related Issues
== END 2023-06-24 11:07 | disposition home or self-care (01) ==
PROVIDERS: PCP Internal Medicine Geriatric Medicine; Visit Provider Surgery
PROC: (CPT 11406; principal; 2023-06-24 08:40)
DX: R22.9 Localized swelling, mass and lump, unspecified (principal); E11.9 Type 2 diabetes mellitus without complications; M06.9 Rheumatoid arthritis, unspecified; Z99.89 Dependence on other enabling machines and devices; D72.10 Eosinophilia, unspecified; D64.9 Anemia, unspecified; K21.9 Gastro-esophageal reflux disease without esophagitis; Z98.890 Other specified postprocedural states; Z87.891 Personal history of nicotine dependence; Z79.82 Long term (current) use of aspirin; Z79.84 Long term (current) use of oral hypoglycemic drugs; Z79.899 Other long term (current) drug therapy
CPT/HCPCS: 11406; 82947; 88304; J0690; J2250; J3010

== ENCOUNTER → 2023-06-24 06:30 | Outpatient (BNV) | payer OTHER, SELFPAY | PROVIDERS: PCP Internal Medicine Geriatric Medicine; Visit Provider Surgery | DX: D17.1 Benign lipomatous neoplasm of skin and subcutaneous tissue of trunk (principal) | CPT/HCPCS: 11406 ==

== ENCOUNTER 2023-06-25 10:31 | Outpatient (AMB) | payer OTHER, SELFPAY ==
[2023-06-25 10:39] VITALS: BP 150/70; PULSE 71; BMI 27.7
--- NOTE | 2023-06-25 10:39 | A.OFFVIS_ITS ---
Intake Vital Signs 06/25/23 10:39 Height 4 ft 11 in Weight 137 lb BMI 27.7 BP 150/70 H Blood Pressure Location Rt brachial Position Sitting Pulse 71 Intake Visit Reasons: RUQ pain Intake Note: Patient referred by Dr. Ward for RUQ pain. Patient reports recent US showed problem with gallbladder. C/o constant smelly burps. Denies vomiting, diarrhea, constipation. Transcription Coordinator Required: No Accompanied by: Self / Same As Patient Allergies No Known Allergies Allergy (Verified 06/25/23 10:41) HPI HPI Comments History of Present Illness Details Patient presents 1. For follow-up status post recent excision of back mass. 2. Nonspecific right upper quadrant abdominal pain time 1 months time. This has been intermittent and associated with meals. Patient denies any history of jaundice or fatty food intolerance per se. He has regular bowel habits. [facility] Medical History Chronic constipation Diabetes COVID-19 vaccine series started History of depression Ambulates with cane Acid reflux Eosinophilia Leukocytosis Rheumatoid arthritis Normocytic anemia Surgical History History of esophagogastroduodenoscopy (EGD) History of cataract extraction History of back surgery History of colonoscopy History of surgical removal of lesion Family History Mother Diabetes Father No problems noted. Social History Household Members: Spouse Housing: House Alcohol intake: never Patient Tobacco Use Status: Former Tobacco user e-Cigarette/Vaping Use: Never Used service: No Current occupational status: retired Current occupation: rt handed Physical Exam Vital Signs: Last Vital Signs Pulse 71 06/25/23 10:39 BP 150/70 H 06/25/23 10:39 BMI result Body Mass Index 27.7 Eyes Other: Anicteric GI Other: Abdomen soft. 2 cm reducible umbilical hernia. Mild right upper quadrant tenderness. No evidence of any guarding, rebound, rigidity. Back/Spine/Pelvis Other: Back wound clean dry and intact healing very well pain Assessment & Plan Assessment & Plan (1) Abnormal abdominal ultrasound: Code(s): R93.5 - Abnormal findings on diagnostic imaging of other abdominal regions, in cluding retroperitoneum (2) Sebaceous cyst: Code(s): L72.3 - Sebaceous cyst (3) Umbilical hernia: Code(s): K42.9 - Umbilical hernia without obstruction or gangrene Plan Sonogram demonstrated no evidence of cholelithiasis. Current plan is to arrange for HIDA scan and direct further therapy based on these results and the patient's clinical course. Final pathology of back mass is still pending. Coding Level of Care Code Est Pt Level 4 (70166) Global (30292) Diagnoses Abnormal abdominal ultrasound R93.5 Sebaceous cyst L72.3 Umbilical hernia K42.9
== END 2023-06-25 10:50 | disposition home or self-care (01) ==
PROVIDERS: PCP Internal Medicine Geriatric Medicine; Referring Provider Internal Medicine; Visit Provider Surgery
DX: K42.9 Umbilical hernia without obstruction or gangrene (principal); R93.5 Abnormal findings on diagnostic imaging of other abdominal regions, including retroperitoneum
CPT/HCPCS: 99214

== ENCOUNTER → 2023-06-25 10:31 | Outpatient (BNVA) | payer OTHER, SELFPAY | PROVIDERS: PCP Internal Medicine Geriatric Medicine; Visit Provider Surgery | DX: R10.11 Right upper quadrant pain (principal); K59.04 Chronic idiopathic constipation; K21.9 Gastro-esophageal reflux disease without esophagitis; R93.5 Abnormal findings on diagnostic imaging of other abdominal regions, including retroperitoneum; K42.9 Umbilical hernia without obstruction or gangrene; L72.3 Sebaceous cyst | CPT/HCPCS: 99212 ==

== ENCOUNTER 2023-07-05 09:25 | Outpatient (AMB) | payer OTHER, SELFPAY ==
--- NOTE | 2023-07-05 09:45 | MHC.OFFVIS ---
Intake Vital Signs 07/05/23 09:46 Height 4 ft 11 in Weight 138 lb 14.259 oz BMI 28.0 BP 120/63 Blood Pressure Location Rt brachial Position Sitting Pulse 72 Intake Visit Reasons: s/p exc on back Intake Note: Patient here s/p exc on back. Reports incision healing well. C/o mild itch along scar. Denies bleeding or oozing. 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 He has no issues or complaints with this. Pathology is benign. Incidentally, patient is scheduled for HIDA scan approximately 3 weeks time regarding his upper GI symptoms. [facility] Medical History Chronic constipation Diabetes COVID-19 vaccine series started History of depression Ambulates with cane Acid reflux Eosinophilia Leukocytosis Rheumatoid arthritis Normocytic anemia Surgical History History of esophagogastroduodenoscopy (EGD) History of cataract extraction History of back surgery History of colonoscopy History of surgical removal of lesion Family History Mother Diabetes Father No problems noted. Social History Household Members: Spouse Housing: House Alcohol intake: never Patient Tobacco Use Status: Former Tobacco user e-Cigarette/Vaping Use: Never Used service: No Current occupational status: retired Current occupation: rt handed Physical Exam Vital Signs: Last Vital Signs Pulse 72 07/05/23 09:46 BP 120/63 07/05/23 09:46 BMI result Body Mass Index 28.0 Back/Spine/Pelvis Other: Back wound clean dry and intact, healing uneventfully. Assessment & Plan Assessment & Plan (1) Lipoma: Code(s): D17.9 - Benign lipomatous neoplasm, unspecified Qualifiers: Lipoma location: trunk Qualified Code(s): D17.1 - Benign lipomatous neoplasm of skin and subcutaneous tissue of trunk (2) Biliary dyskinesia: Code(s): K82.8 - Other specified diseases of gallbladder Plan Patient is doing well and should avoid strenuous activities for next 2 weeks time. In the meantime, he will undergo was HIDA scan and piece seen after this. Patient also has a GI appointment scheduled. Coding Level of Care Code New Pt Level 3 (05336) Global (59591) Diagnoses Lipoma of torso D17.1 Lipoma location: trunk Biliary dyskinesia K82.8
[2023-07-05 09:46] VITALS: BP 120/63; PULSE 72; BMI 28.0
== END 2023-07-05 10:08 | disposition home or self-care (01) ==
PROVIDERS: PCP Internal Medicine Geriatric Medicine; Visit Provider Surgery
DX: D17.1 Benign lipomatous neoplasm of skin and subcutaneous tissue of trunk (principal); K82.8 Other specified diseases of gallbladder
CPT/HCPCS: 99024; 99213

== ENCOUNTER 2023-07-05 09:25 | Outpatient (AMB) | payer OTHER, SELFPAY ==
--- NOTE | 2023-07-05 10:01 | MHC.OFFVIS ---
Intake Vital Signs 07/05/23 10:07 BP 132/63 Blood Pressure Location Lt brachial Position Sitting Intake Visit Reasons: 4 week follow up Intake Note: Patient follow up for Acid reflex. Patient cc: middle abdominal pain, no appetite, acid reflex and constipation. Psychology Associate Required: Yes Psychology Associate [place] [facility] [place] Accompanied by: Self / Same As Patient Allergies No Known Allergies Allergy (Verified 07/05/23 10:00) HPI HPI Comments History of Present Illness Details A 77 y./o male with non specific abdominal pain, weight loss and early satiety- ( Ozempic) He is awaiting MRI for pancreas-reviewed previous ultrasound with Dr. Shah He was seen by Dr. Carmen evaluation of gallbladder thickening however he is awaiting HIDA scan- Has appetite is decreased, epigastric discomfort and however he is not have any pain for the past couple days, he does have- bloating seems to come and go thinks he is losing weight. For He has no nausea, vomiting hematemesis, hematochezia fever or chills Due for EGD for Hare's 2023 Due for colonoscopy for polyps 2025 [facility] Medical History Chronic constipation Diabetes COVID-19 vaccine series started History of depression Ambulates with cane Acid reflux Eosinophilia Leukocytosis Rheumatoid arthritis Normocytic anemia Surgical History History of esophagogastroduodenoscopy (EGD) History of cataract extraction History of back surgery History of colonoscopy History of surgical removal of lesion Family History Mother Diabetes Father No problems noted. Social History Household Members: Spouse Housing: House Alcohol intake: never Patient Tobacco Use Status: Former Tobacco user e-Cigarette/Vaping Use: Never Used service: No Current occupational status: retired Current occupation: rt handed Review of Systems Const All systems reviewed & are unremarkable except as noted in HPI and below Card Denies chest pain and Denies dyspnea Resp Denies dyspnea GI Denies abdominal pain, Reports bloating, Denies change in stool character, Denies nausea and Denies vomiting Physical Exam Vital Signs: Last Vital Signs BP 132/63 07/05/23 10:07 Const General: cooperative, comfortable and no acute distress Orientation/consciousness: patient oriented x3 Limitations: language barrier Eyes Sclerae: sclerae normal Resp Effort & Inspection: normal respiratory effort and able to speak in complete sentences Auscultation: clear to auscultation bilaterally, no rhonchi and no wheezes Cardio Rate: regular rate Rhythm: regular rhythm GI Palpation (GI): Soft to palpation and nontender Auscultation: normal bowel sounds Skin General skin exam: no rashes or lesions noted Neuro General: patient oriented x3 Extrem General: Yes full ROM Psych Appearance: well kempt Mental Status: mental status grossly normal Speech and movement: Normal speech and movement present and Clear speech present Affect: normal affect Attitude: cooperative Thought process: Normal thought process present Assessment & Plan Assessment & Plan (1) Weight loss: Comment: A very pleasant Gent,c/o weight loss, early satiety epigastric pain reviewed weight documentation since beginning of 2022-weight it is down less than 5 lb Ozempic ?? Code(s): R63.4 - Abnormal weight loss Plan: Minimal weight loss (2) Epigastric pain: Comment: Nonspecific Better not appreciated on exam Code(s): R10.13 - Epigastric pain (3) Acid reflux: Comment: Acid reflux improved with increased omeprazole Avoid culprits- Always in good spirits Reviewed appointment times a there is some conflicting appointments with urology-he will adjust scheduling Code(s): K21.9 - Gastro-esophageal reflux disease without esophagitis (4) Barretts esophagus: Comment: continue ppi daily- omeprazole 40 mg Code(s): K22.70 - Hare's esophagus without dysplasia Plan f/u w/ me on after he sees Dr. Carmen/mri awaiting HIDA and MRI Medications: Discontinued omeprazole Discontinued Reason: Duplicate 20 mg PO DAILY 30 days 30 caps 5RF Patient Instructions: f/u w/ me on after he sees Dr. Carmen/jonathan awaiting HIDA Encouraged to call questions or concerns Psychology Associate assisted Coding Level of Care Code Est Pt Level 4 (34520) Diagnoses Weight loss R63.4 Epigastric pain R10.13 Acid reflux K21.9 Barretts esophagus K22.70 Time Spent (min) 30
[2023-07-05 10:07] VITALS: BP 132/63
== END 2023-07-05 10:32 | disposition home or self-care (01) ==
PROVIDERS: PCP Internal Medicine Geriatric Medicine; Visit Provider Physician Assistant
DX: R63.4 Abnormal weight loss (principal); R10.13 Epigastric pain; K21.9 Gastro-esophageal reflux disease without esophagitis; K22.70 Barrett's esophagus without dysplasia
CPT/HCPCS: 99214

== ENCOUNTER → 2023-07-05 09:25 | Outpatient (BNVA) | payer OTHER, SELFPAY | PROVIDERS: PCP Internal Medicine Geriatric Medicine; Visit Provider Physician Assistant | DX: Z48.817 Encounter for surgical aftercare following surgery on the skin and subcutaneous tissue (principal); K21.9 Gastro-esophageal reflux disease without esophagitis; K22.70 Barrett's esophagus without dysplasia; R63.4 Abnormal weight loss; R10.13 Epigastric pain; K82.8 Other specified diseases of gallbladder; Z87.2 Personal history of diseases of the skin and subcutaneous tissue | CPT/HCPCS: 99212 ==

== ENCOUNTER 2023-07-06 10:00 | Outpatient (RCR) | payer OTHER, SELFPAY ==
--- NOTE | 2023-06-03 15:06 | MHC.PT.EP ---
[facility] Office [place] Office [place] Office [address] Mariozl Scott [address] [phone] F: [phone] F: [phone] F: [phone] F: [phone] Physical Therapy Plan of Care Date of Evaluation: 06/03/23 Date of Surgery: Diagnosis: This is a 77 yo male presenting to skilled PT with a script for lumbar degenerative disc disease. Assessment: This is a 77 yo male presenting to skilled PT with a script for lumbar degenerative disc disease. Patient reports pain has been ongoing for some time now. He had therapy for this in the past and it was helpful. Today is pain is located B and across the low back. Pain is described as sharp but can be mild as well. Pain comes and goes, increases at night and with bending, lifting and moving around (going up the stairs or walking). Pain improves with rest, standing. He has been using Tylenol for pain relief and is still doing some exercises (biking). He had lumbar surgery 3 years ago, he is unsure what he had done however. Assessment reveals pain that ranges from up to a 5/10 at the worst. Patient demos decreased lumbar ROM, strength of B LE's, TTP at lumbar soft tissue, and impaired posture with forward head and rounded shoulders, shuffling gait and forward flexed trunk. Based on functional limitations, impaired QOL and pain tolerance patient is a good candidate for skilled PT 2x/wk for 4wks. Frequency and Duration: The patient will be seen 2x/wk for 4wks Short Term Goals: (in 2 wks) I in HEP Demo proper technique of core stab and neutral pelvic alignment Demo proper squat techniques without pain Roller Operator Goals: (in 4wks) Demo at least 1 grade MMT improvement of BLE Demo WFL ROM of lumbar and BLE without pain Improve pain to no more than 2/10 at the worst Improve oswestry by at least 10 points Treatment Plan: Modalities to reduce pain, spasms and effusion. Manual therapy to restore motion and function. Therapeutic exercise to improve strength and flexibility. Neuromuscular re-education for posture and balance. Therapeutic activities to return to functional activities of daily living. Electronically signed by: Rima Llamas PT Please sign and return to therapist. Thank you for your referral.
--- NOTE | 2023-07-06 10:40 | MHC.PT.DC ---
[facility] [place] [facility] [place] [address] Marizol Scott [address] [phone] F: [phone] F: [phone] F: [phone] F: [phone] Physical Therapy Discharge Report Diagnosis: This is a 77 yo male presenting to skilled PT with a script for lumbar degenerative disc disease. Date of Surgery: Date of Evaluation: 06/03/23 Date of Discharge: 07/06/23 Treatments to Date: 8 Cancellations to Date: 0 No Shows to Date: 0 Discharge Status: Achieved Goals Improved Function Independent with HEP Discharge Summary: Patient has had 8 visits of PT, he has improved pain, strength and ROM. He has an HEP to continue on his own. He is I in his program and appropriate for DC. Educated him to contact PCP as needed/call our office if he ever needs our services again. Electronically signed by: Rima Llamas PT Please sign and return to therapist. Thank you for your referral.
== END 2023-07-06 10:40 | disposition home or self-care (01) ==
LOC: HO.PTCHIC 10:00
PROVIDERS: PCP Internal Medicine Geriatric Medicine; Visit Provider Student in an Organized Health Care Education/Training Program
DX: M51.36 Other intervertebral disc degeneration, lumbar region (principal)
CPT/HCPCS: 97110; 97162

== ENCOUNTER → 2023-07-23 10:10 | Outpatient (REF) | payer OTHER, SELFPAY ==
--- NOTE | ~2023-07-23 | NM_ITS ---
EXAMINATION: BILIARY TRACT IMAGING STUDY WITH CCK CLINICAL INFORMATION: Epigastric pain. Suspected biliary dyskinesia.. COMPARISON: Abdominal ultrasound done on 05/21/2023.. TECHNIQUE: Serial gamma scintillation camera images were obtained over the abdomen for a total observation period of 60 minutes following the intravenous administration of 5.0 mCi Tc-99m mebrofenin. FINDINGS: There is good concentration of activity in the liver by 5 minutes post injection. Biliary activity is visualized by 10 minutes. The gallbladder is well visualized by 30 minutes. Small bowel is well visualized by 95 minutes. At 60 minutes post radiopharmaceutical injection, a 30-minute infusion of 1.2 micrograms Sincalide was then begun and an additional 40 minutes of images were obtained. There is good emptying of the gallbladder. By the end of the study there is good clearance of activity from the liver and visualization of diffuse small bowel activity. The calculated gallbladder ejection fraction is 86% (normal gallbladder ejection fraction is greater than 35%). NM/NM hepatobiliary w pharm IMPRESSION: Visualization of the gallbladder is evidence of a patent cystic duct and strong evidence against the diagnosis of acute cholecystitis. The common bile duct is patent. Gallbladder emptying and ejection fraction are normal. Liver function appears normal.
== END ==
LOC: HO.NUCMED 10:10
PROVIDERS: PCP Internal Medicine Geriatric Medicine; Visit Provider Surgery
DX: K82.8 Other specified diseases of gallbladder (principal)
CPT/HCPCS: 78227; A9537; J2805

== ENCOUNTER 2023-08-02 09:30 | Outpatient (AMB) | payer OTHER, SELFPAY ==
[2023-08-02 09:52] VITALS: BP 161/72; PULSE 72; BMI 28.3
--- NOTE | 2023-08-02 09:52 | MHC.OFFVIS ---
Intake Vital Signs 08/02/23 09:52 Height 4 ft 11 in Weight 140 lb BMI 28.3 BP 161/72 H Blood Pressure Location Rt brachial Position Sitting Pulse 72 Intake Visit Reasons: Discuss hida scan results Intake Note: Patient here to discuss HIDA scan results. 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 HIDA scan results were within normal limits. He is not having right upper quadrant symptoms per se. Patient had his medication for his diabetes change to Ozempic and is having symptoms more related to this seeing things. [facility] Medical History Chronic constipation Diabetes COVID-19 vaccine series started History of depression Ambulates with cane Acid reflux Eosinophilia Leukocytosis Rheumatoid arthritis Normocytic anemia Surgical History History of esophagogastroduodenoscopy (EGD) History of cataract extraction History of back surgery History of colonoscopy History of surgical removal of lesion Family History Mother Diabetes Father No problems noted. Household Members: Spouse Housing: House Alcohol intake: never Patient Tobacco Use Status: Former Tobacco user e-Cigarette/Vaping Use: Never Used service: No Current occupational status: retired Current occupation: rt handed Physical Exam Vital Signs: Last Vital Signs Pulse 72 08/02/23 09:52 BP 161/72 H 08/02/23 09:52 BMI result Body Mass Index 28.3 GI Other: Abdomen soft, benign. Back/Spine/Pelvis Other: Back sebaceous cyst excision site clean dry and intact healing well Assessment & Plan Assessment & Plan (1) Acid reflux: Comment: Acid reflux improved with increased omeprazole Avoid culprits- Always in good spirits Reviewed appointment times a there is some conflicting appointments with urology-he will adjust scheduling Code(s): K21.9 - Gastro-esophageal reflux disease without esophagitis Plan At present, no acute surgical issues . 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 He will follow-up with me [email or web address].. Coding Level of Care Code Est Pt Level 3 (02817) Diagnoses Acid reflux K21.9
== END 2023-08-02 10:11 | disposition home or self-care (01) ==
PROVIDERS: PCP Internal Medicine Geriatric Medicine; Visit Provider Surgery
DX: K21.9 Gastro-esophageal reflux disease without esophagitis (principal)
CPT/HCPCS: 99213

== ENCOUNTER 2023-08-02 13:18 | Outpatient (REF) | payer OTHER, SELFPAY ==
--- NOTE | ~2023-08-02 | MR_ITS ---
EXAMINATION: MR ABDOMEN WITHOUT AND WITH CONTRAST CLINICAL INFORMATION: Epigastric pain. COMPARISON: Hepatobiliary nuclear medicine study 07/23/2023. Abdominal ultrasound 05/21/2023. Abdominal MRI 04/24/2022. TECHNIQUE: MR abdomen was performed without and with use of 6.5 mL intravenous Gadavist gadolinium contrast. Postcontrast images are performed in multiphase dynamic sequences. Imaging was performed in 3 planes. 3D MRCP images were processed on an independent workstation under concurrent supervision. FINDINGS: LUNG BASES: No focal consolidation or pleural effusion. LIVER, GALLBLADDER, AND BILIARY TREE: There is signal loss of the liver parenchyma in the opposed phase dual echo images most consistent with hepatic steatosis. Otherwise, the liver is normal in size and shape. Unchanged susceptibility artifact along the periphery of the right hepatic lobe (image 12, series 7), suggestive of a calcification. No new liver lesion. Gallbladder is partially underdistended. No evidence of cholelithiasis. No significant pericholecystic fat stranding or free fluid to suspected acute cholecystitis. No biliary ductal dilatation. No intraluminal filling defects to suspect choledocholithiasis. PANCREAS: Unremarkable. SPLEEN: Normal. 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 Normal right adrenal gland. KIDNEYS AND URETERS: The kidneys are normal in size, shape, and enhance symmetrically. No hydronephrosis. No perinephric stranding. Redemonstration of bilateral T2 bright, avascular, simple Bosniak 1 cysts largest in the right kidney measuring up to 10 cm for which no imaging followup is recommended. Homogeneously, precontrast T1 bright 1 cm proteinaceous/hemorrhagic Bosniak 2 cyst in the upper right kidney (image 64, series 10), for which no imaging followup is recommended. GASTROINTESTINAL TRACT: No bowel obstruction. No ascites or fluid collection. ABDOMINAL WALL: No significant hernia is appreciated. LYMPH NODES: No lymphadenopathy. VASCULAR: Normal caliber of the abdominal aorta. OSSEOUS STRUCTURES: No acute or aggressive appearing osseous findings. Susceptibility artifacts from posterior fusion hardware at L4 and L5. MR/MR abdomen wo/w con IMPRESSION: 1. Hepatic steatosis. 2. No cholelithiasis, biliary ductal dilatation, or choledocholithiasis. 3. Extensive colonic diverticulosis without significant pericolonic fat stranding or free fluid in included portions of the bowel to suspect acute diverticulitis. No evidence of bowel obstruction.
[2023-08-02] MEDS: gadobutroL 7.5 ML VIAL IVPUSH (14:26)
== END 2023-08-02 13:19 | disposition home or self-care (01) ==
LOC: HO.MRI 13:18
PROVIDERS: PCP Internal Medicine Geriatric Medicine; Visit Provider Physician Assistant
DX: R10.13 Epigastric pain (principal); R63.4 Abnormal weight loss; R93.5 Abnormal findings on diagnostic imaging of other abdominal regions, including retroperitoneum
CPT/HCPCS: 74183; 99212; A9585

== ENCOUNTER 2023-08-16 09:30 | Outpatient (AMB) | payer OTHER, SELFPAY ==
--- NOTE | 2023-08-16 09:43 | A.OFFVIS_ITS ---
Intake Vital Signs 08/16/23 09:47 Height 4 ft 11 in Weight 142 lb BMI 28.7 BP 137/57 L Blood Pressure Location Lt brachial Position Sitting Pulse 71 Intake Visit Reasons: MRI results Intake Note: Patient follow up for acid reflex and MRI results. Patient cc: abdominal pain and denies any other GI issues. Supervisor Pre Wave Required: Yes Supervisor Pre Wave Name: [facility] [place] interpeter Accompanied by: Self / Same As Patient Allergies No Known Allergies Allergy (Verified 08/16/23 09:43) Medication List - Last Reconciled 08/16/23 by Laura Cid PA-C allopurinol 100 mg PO DAILY amlodipine 10 mg PO DAILY aspirin 81 mg PO DAILY bisacodyl (Dulcolax (bisacodyl)) 10 mg MD DAILY PRN blood sugar diagnostic As directed buspirone 5 mg PO TID diclofenac sodium 1% 1 g topical BID docusate sodium (Colace) 200 mg (2 x 100 mg) PO BEDTIME empagliflozin (Jardiance) 25 mg PO DAILY lisinopril 40 mg PO DAILY meclizine 25 mg PO TID PRN methylcellulose (laxative) (Citrucel Sugar Free oral powder) 2 grams PO DAILY PRN 30 days multivit-iron sulf-folic acid 15 mg iron- 400 mcg (Tab-A-Mark Multivitamin w- iron) 1 tab PO DAILY nitrofurantoin macrocrystal 100 mg PO BID 7 days omeprazole 40 mg (2 x 20 mg) PO DAILY 30 days polyethylene glycol 3350 (Miralax) 17 grams PO DAILY pravastatin 20 mg PO DAILY semaglutide (Ozempic) 4 mg subcut DAILY tamsulosin 0.8 mg PO DAILY terazosin 5 mg PO BEDTIME 90 days testosterone 60.75 mg transdermal DAILY 30 days HPI HPI Comments History of Present Illness Details A 77 y/o male f/u after MRI- abdominal bloating Ozempic - he d/cd- improvement-he says appetite is better Acid reflux has improved, taking omeprazole daily Having normal bowel He occasionally has nausea no vomiting abdominal bloating without pain no fever or chills Saw Dr. Carmen- 08/02/23 Reviewed MRI- MR/MR abdomen wo/w con IMPRESSION: 1. Hepatic steatosis. 2. No cholelithiasis, biliary ductal dil atation, or choledocholithiasis. 3. Extensive colonic diverticulosis with out significant pericolonic fat stranding or free fluid in included portions of the bowel to suspect acute diverticulitis. No evidence of bowel obstruction. [facility] Medical History Chronic constipation Diabetes COVID-19 vaccine series started History of depression Ambulates with cane Acid reflux Eosinophilia Leukocytosis Rheumatoid arthritis Normocytic anemia Surgical History Acid reflux History of esophagogastroduodenoscopy (EGD) History of cataract extraction History of back surgery History of colonoscopy History of surgical removal of lesion Family History Mother Diabetes Father No problems noted. Social History Household Members: Spouse Housing: House Alcohol intake: never Patient Tobacco Use Status: Former Tobacco user e-Cigarette/Vaping Use: Never Used service: No Current occupational status: retired Current occupation: rt handed Review of Systems Const All systems reviewed & are unremarkable except as noted in HPI and below Card Denies chest pain and Denies dyspnea Resp Denies dyspnea GI Denies abdominal pain, Reports bloating, Denies change in bowel habits, Denies nausea and Denies vomiting Physical Exam Vital Signs: Last Vital Signs Pulse 71 08/16/23 09:47 BP 137/57 L 08/16/23 09:47 BMI result Body Mass Index 28.7 Const General: cooperative and comfortable Orientation/consciousness: patient oriented x3 Limitations: language barrier Eyes Conjunctivae: conjunctival abnormal (Injected bilaterally no drainage) Resp Effort & Inspection: normal respiratory effort and able to speak in complete sentences Auscultation: clear to auscultation bilaterally, no rales, no rhonchi and no wheezes Cardio Rate: regular rate Rhythm: regular rhythm Heart sounds: S1 normal heart sound present and S2 normal heart sound present GI Inspection: Yes distended Palpation (GI): Soft to palpation and nontender Auscultation: normal bowel sounds Neuro General: patient oriented x3 Extrem General: Yes full ROM Psych Appearance: well kempt Mental Status: mental status grossly normal Speech and movement: Normal speech and movement present Affect: normal affect Attitude: cooperative Thought process: Normal thought process present Thought content: Normal thought content present Results Reviewed Results Reviewed: MR/MR abdomen wo/w con IMPRESSION: 1. Hepatic steatosis. 2. No cholelithiasis, biliary ductal dilatation, or choledocholithiasis. 3. Extensive colonic diverticulosis without significant pericolonic fat stranding or free fluid in included portions of the bowel to suspect acute diverticulitis. No evidence of bowel obstruction. Assessment & Plan Assessment & Plan (1) Diverticulosis: Comment: 3. Extensive colonic diverticulosis without significant pericolonic fat stranding or free fluid in included portions of the bowel to suspect acute diverticulitis. No evidence of bowel obstruction. Code(s): K57.90 - Diverticulosis of intestine, part unspecified, without perforation or abscess without bleeding Plan: Reenforced ER protocol miralax/ HFD diet (2) Weight loss: Comment: Weight is stable He discontinued Ozempic-encouraged to follow-up with PCP so that they are aware ?? Code(s): R63.4 - Abnormal weight loss (3) History of colon polyps: Comment: Due for polyp surveillance 3 years if in good health Code(s): Z86.010 - Personal history of colonic polyps Plan bowel regimen- important Medications: Refilled docusate sodium (Colace) 200 mg (2 x 100 mg) PO BEDTIME 60 caps 5RF polyethylene glycol 3350 (Miralax) 17 grams PO DAILY 510 grams 6RF methylcellulose (laxative) (Citrucel Sugar Free oral powder) 2 grams PO DAILY 30 days PRN 479 grams 2RF constipation Patient Instructions: Follow-up PCP re medications Reviewed MRI-extensive diverticulosis Maintain high-fiber diet Foods to avoid Encouraged to call with any questions or concerns Reiterated above to be sure he is comprehending Diverticulosis/diverticulitis ER protocol reinforced Again follow-up PCP to discuss medications-encouraged not to discontinue medications with out advice from prescriber Coding Level of Care Code Est Pt Level 4 (50341) Diagnoses Diverticulosis K57.90 Weight loss R63.4 History of colon polyps Z86.010 Time Spent (min) 35 Comment Supervisor Pre Wave
[2023-08-16 09:47] VITALS: BP 137/57; PULSE 71; BMI 28.7
== END 2023-08-16 10:43 | disposition home or self-care (01) ==
PROVIDERS: PCP Internal Medicine Geriatric Medicine; Visit Provider Physician Assistant
DX: K57.90 Diverticulosis of intestine, part unspecified, without perforation or abscess without bleeding (principal); R63.4 Abnormal weight loss; Z86.010 Personal history of colon polyps
CPT/HCPCS: 99214

== ENCOUNTER → 2023-08-16 09:30 | Outpatient (BNVA) | payer OTHER, SELFPAY | PROVIDERS: PCP Internal Medicine Geriatric Medicine; Visit Provider Physician Assistant | DX: K57.90 Diverticulosis of intestine, part unspecified, without perforation or abscess without bleeding (principal); R63.4 Abnormal weight loss; Z86.010 Personal history of colon polyps | CPT/HCPCS: 99212 ==

== ENCOUNTER 2023-08-20 13:15 | Outpatient (REF) | payer OTHER, SELFPAY ==
[2023-08-20 13:54] LABS: Hematocrit 39.5 % (42.0-52.0); Hemoglobin 12.9 g/dl (14.0-18.0); Mean Corpuscular HGB Conc 32.7 g/dl (31.0-36.0); Mean Corpuscular Hemoglobin 28.1 pg (27.0-33.0); Mean Corpuscular Volume 86.1 fL (80.0-98.0); Mean Platelet Volume 9.6 fL (9.4-12.4); Platelet Count 266 X10*3/uL (160-400); Red Blood Count 4.59 X10*6/uL (4.60-5.80); Red Cell Distribution Width 13.8 % (11.0-16.0); White Blood Count 10.8 X10*3/uL (4.8-10.8)
[2023-08-26 13:32] LABS: Testosterone, Free 32.1 pg/mL (30.0-135.0); Testosterone, Total 142 ng/dL (250-1100)
== END 2023-08-20 13:16 | disposition home or self-care (01) ==
LOC: HO.LAB 13:15
PROVIDERS: PCP Internal Medicine Geriatric Medicine; Visit Provider Nurse Practitioner Family
DX: E29.1 Testicular hypofunction (principal)
CPT/HCPCS: 36415; 84402; 84403; 85027

== ENCOUNTER 2023-09-07 14:41 | Outpatient (AMB) | payer OTHER, SELFPAY ==
--- NOTE | 2023-09-07 14:48 | MHC.OFFVIS ---
Intake Intake Visit Reasons: f/u Labs Results Intake Note: Patient is present for follow up Hypogonadism/BPH/Testicular Hypofunction (testosterone 142) (free test 32.1) Urology Medication: terazosin, testosterone, tamsulosin Blood Thinner: aspirin PVR: 17ml's Box Hinge And Lock Attacher Required: Yes Accompanied by: Self / Same As Patient Allergies No Known Allergies Allergy (Verified 09/07/23 20:25) Medication List - Last Reconciled 09/07/23 by SWETA Fam- allopurinol 100 mg PO DAILY amlodipine 10 mg PO DAILY aspirin 81 mg PO DAILY bisacodyl (Dulcolax (bisacodyl)) 10 mg [place] DAILY PRN blood sugar diagnostic As directed buspirone 5 mg PO TID diclofenac sodium 1% 1 g topical BID docusate sodium (Colace) 200 mg (2 x 100 mg) PO BEDTIME empagliflozin (Jardiance) 25 mg PO DAILY lisinopril 40 mg PO DAILY meclizine 25 mg PO TID PRN methylcellulose (laxative) (Citrucel Sugar Free oral powder) 2 grams PO DAILY PRN 30 days multivit-iron sulf-folic acid 15 mg iron- 400 mcg (Tab-A-Mark Multivitamin w-iron) 1 tab PO DAILY omeprazole 40 mg (2 x 20 mg) PO DAILY 30 days polyethylene glycol 3350 (Miralax) 17 grams PO DAILY pravastatin 20 mg PO DAILY semaglutide (Ozempic) 4 mg subcut DAILY tamsulosin 0.8 mg PO DAILY terazosin 5 mg PO BEDTIME 90 days testosterone 60.75 mg transdermal DAILY 30 days HPI HPI Comments History of Present Illness Details Francisco is a pleasant 77 year old Montenegrin speaking patient of Dr. Lund. He has a past medical history of acid reflux, chronic constipation, diabetes, depression, normocytic anemia, and rheumatoid arthritis. He presents to the office today for follow-up regarding his hypogonadism and benign prostatic hyperplasia. He reports to be doing and feeling well. When asked he reports significant improvement in lower urinary tract symptoms on terazosin 5 mg daily. Recent PSA and testosterone levels reviewed with the patient today. T level low at 142 however patient reports he has not been complaint with administration of testosterone as prescribed. Discussed at length importance of compliance. He reports having issues at the pharmacy with obtaining testosterone however then discusses having testosterone however has ran out of refills. In further discussion the patient is unsure He is unsure Discussed obtaining labs in 3 months for further assessment evaluation. He otherwise denies any urinary issues or concerns at this time. He denies dysuria, hematuria, fever, and or chills. Testosterone levels are as follows: 12/24-155, 02/23-124, 04/25-78, 06/25-495, 10/27-458, 09/27-125, 02/25-156, 09/28-381, 04/28-144, 08/28--142 PSAs are as follows: 02/24--2.2, 09/27--1.7, 04/28--3.0 Discussed at length importance of managing diabetes for improvement in lower urinary tract symptoms as well as overall health and well-being. He otherwise offers no issues or concerns at this time. Last seen April 2023 [facility] Medical History Chronic constipation Diabetes COVID-19 vaccine series started History of depression Ambulates with cane Acid reflux Eosinophilia Leukocytosis Rheumatoid arthritis Normocytic anemia Surgical History Acid reflux History of esophagogastroduodenoscopy (EGD) History of cataract extraction History of back surgery History of colonoscopy History of surgical removal of lesion Family History Mother Diabetes Father No problems noted. Social History Household Members: Spouse Housing: House Alcohol intake: never Patient Tobacco Use Status: Former Tobacco user e-Cigarette/Vaping Use: Never Used service: No Current occupational status: retired Current occupation: rt handed Review of Systems Const Reports as per HPI Eyes Reports no additional complaints ENT Reports no additional complaints Card Reports as per HPI Resp Reports no additional complaints GI Reports as per HPI Reports as per HPI Neuro Reports as per HPI Psych Reports as per HPI Endo Reports no additional complaints Physical Exam Const General: cooperative, healthy appearing, comfortable, no acute distress, well developed, alert and awake Orientation/consciousness: patient oriented x3 Limitations: no limitations HEENT Head: Yes normal to inspection, Yes normocephalic and Yes atraumatic Ears: hearing grossly normal bilaterally Eyes General: appearance normal, both eyes and all related structures Neck Neck: Yes normal visual inspection and Yes trachea midline Chest Chest palpation & inspection: normal inspection of the chest Resp Effort & Inspection: normal respiratory effort and able to speak in complete sentences Cardio Rate: regular rate GI Inspection: Yes normal to inspection General: Yes no CVA tenderness Back/Spine/Pelvis Back: no CVA tenderness Skin General skin exam: no rashes or lesions noted Neuro General: patient oriented x3 Extrem General: Yes normal to inspection Psych Appearance: grossly normal and well kempt Mental Status: mental status grossly normal Speech and movement: Normal speech and movement present and Clear speech present Affect: normal affect Attitude: cooperative Thought process: Normal thought process present Thought content: Normal thought content present Insight: Fair insight present (Psych) Judgement: Fair judgement present (Psych) Office Procedures Post Void Residual Post Residual Void Post Void Residual (PVR): 17 [id number] Void Residual by ultrasound Results AMB Urinalysis, Automated UA Leukoctes 0 Gab/uL Last Edit by [facility] on 09/07/23 15:21 UA Nitrite Negative Last Edit by [facility] on 09/07/23 15:21 UA Urobilinogen 0.2 mg/dL Last Edit by [facility] on 09/07/23 15:21 UA Protein 0 mg/dL Last Edit by [facility] on 09/07/23 15:21 UA pH 6.0 Last Edit by [facility] on 09/07/23 15:21 UA Blood 0 Alf/uL Last Edit by [facility] on 09/07/23 15:21 UA Specific [place] 1.015 Last Edit by [facility] on 09/07/23 15:21 UA Ketone Negative Last Edit by [facility] on 09/07/23 15:21 UA Bilirubin 0 mg/dL Last Edit by [facility] on 09/07/23 15:21 UA Glucose 1000 mg/dL Last Edit by [facility] on 09/07/23 15:21 Results Reviewed Results Reviewed: Laboratory Last Values Urine pH (Auto) 6.0 09/07/23 14:51 Specific [place] (Auto) 1.015 09/07/23 14:51 Urine Protein (Auto) 0 mg/dL 09/07/23 14:51 Glucose (UA)(Auto) 1000 mg/dL 09/07/23 14:51 Urine Ketones (Auto) Negative 09/07/23 14:51 Urine Blood (Auto) 0 Alf/uL 09/07/23 14:51 Urine Nitrite (Auto) Negative 09/07/23 14:51 Urine Bilirubin (Auto) 0 mg/dL 09/07/23 14:51 Urine Urobilinogen (Auto) 0.2 mg/dL 09/07/23 14:51 Leukocyte Esterase (Auto) 0 Gab/uL 09/07/23 14:51 Assessment & Plan Assessment & Plan (1) Hypogonadism in male: Code(s): E29.1 - Testicular hypofunction (2) Lower urinary tract symptoms: Code(s): R39.9 - Unspecified symptoms and signs involving the genitourinary system Plan In office urinalysis results reviewed with the patient today; as noted above. PVR 17 mL. Discussed at length importance of managing diabetes for improvement in lower urinary tract symptoms as well as overall health and well-being. Discussed and stressed the importance of taking medication as prescribed. Recent testosterone and PSA results reviewed with the patient today. Continue 5 mg of terazosin as prescribed. Patient reports significant improvement in lower urinary tract symptoms on 5 mg of terazosin daily and is happy with his current voiding parameters with this medication. Discussed compliance of testosterone as prescribed and will reassess testosterone levels in 3 months Patient denies any bothersome urinary issues or concerns at this time. Testosterone free and total, PSA, and CBC in 3 months. Follow-up in 3 months with lab to be completed prior; or sooner with any issues, concerns, and or questions. Orders: Orders AMB Urinalysis Automated Today Z13.9 - Encounter for screening, unspecified PSA,Total (Free>4and<10) 3 Months E29.1 - Testicular hypofunction AMB Post Void Residual by ultrasound Today N40.0 - Benign prostatic hyperplasia without lower urinary tract symptoms Testosterone, Free/Total 3 Months E29.1 - Testicular hypofunction Complete Blood Count no Diff 3 Months E29.1 - Testicular hypofunction Medications: Refilled testosterone 3 pumps applied daily - 60.75 mg transdermal DAILY 150 grams 5RF 30 days E29.1 - Testicular hypofunction Patient Instructions: The patient had an opportunity to ask questions regarding the treatment plan. All questions were answered. Physical exam, labs, and imaging were discussed and reviewed in detail. As well as risks, benefits, and discussion of treatment choices. No major barriers to understanding were identified. The patient expressed understanding and agreement with the above treatment plan. The patient was made aware they should contact our office by phone for worsening of their current condition, the appearance of new symptoms, or with any questions or concerns. Compliance is encouraged with any medications and follow up testing that is ordered. It is a privilege to be allowed the opportunity to participate in? your urological care.? Again, if you have any questions or concerns If you have any questions or concerns please do not hesitate to contact me. The office is [phone]. This note is constructed using voice recognition software. While every effort has been made to ensure accuracy assistant boiler operator errors may have been included. Yours sincerely, BETSY Fam Coding Level of Care Code Est Pt Level 3 (40528) Diagnoses Hypogonadism in male E29.1 Lower urinary tract symptoms R39.9 CPT Codes Post Residual Void - PVR CPT Code: 81614-Qoex Void Residual by ultrasound ([id number])
== END 2023-09-07 15:36 | disposition home or self-care (01) ==
PROVIDERS: PCP Internal Medicine Geriatric Medicine; Visit Provider Nurse Practitioner Family
DX: E29.1 Testicular hypofunction (principal); R39.9 Unspecified symptoms and signs involving the genitourinary system
CPT/HCPCS: 99213

== ENCOUNTER → 2023-09-07 14:41 | Outpatient (BNVA) | payer OTHER, SELFPAY | PROVIDERS: PCP Internal Medicine Geriatric Medicine; Visit Provider Nurse Practitioner Family | DX: E29.1 Testicular hypofunction (principal); N40.0 Benign prostatic hyperplasia without lower urinary tract symptoms; R39.9 Unspecified symptoms and signs involving the genitourinary system; Z79.899 Other long term (current) drug therapy | CPT/HCPCS: 51798; 81003; 99212 ==

== ENCOUNTER 2023-09-22 10:38 | Outpatient (REF) | payer OTHER, SELFPAY ==
[2023-09-22 12:08] LABS: Alanine Aminotransferase 26 U/L (0-40); Albumin Level 4.2 g/dL (3.5-5.0); Alkaline Phosphatase 93 U/L (39-117); Anion Gap 13 (12-20); Aspartate Amino Transferase 22 U/L (5-37); Bilirubin Total 0.4 mg/dL (0.0-1.0); Blood Urea Nitrogen 23 mg/dL (9-16); Calcium 9.6 mg/dL (8.4-10.2); Carbon Dioxide 25 mmol/L (22-29); Chloride 105 mmol/L (96-108); Estimated Glomerular Filt Rate 47; Glucose Random 247 mg/dL (60-115); Sodium 139 mmol/L (135-145); Total Protein 7.6 g/dL (6.5-8.0)
[2023-09-22 12:23] LABS: Creatinine Urine 71.61 mg/dL; Microalbum/Creatinine Ratio Ur 174.5 ug/mg cr (<30)
== END 2023-09-22 10:39 | disposition home or self-care (01) ==
LOC: HO.HHCL 10:38
PROVIDERS: Visit Provider Internal Medicine Geriatric Medicine
DX: E11.69 Type 2 diabetes mellitus with other specified complication (principal); E11.22 Type 2 diabetes mellitus with diabetic chronic kidney disease; N18.30 Chronic kidney disease, stage 3 unspecified; Z79.4 Long term (current) use of insulin
CPT/HCPCS: 36415; 80053; 82043; 82570

== ENCOUNTER 2023-10-12 08:05 | Outpatient (AMB) | payer OTHER, SELFPAY ==
[2023-10-12 08:14] VITALS: BP 169/73; PULSE 70; BMI 28.0
--- NOTE | 2023-10-12 08:14 | A.OFFVIS_ITS ---
Intake Vital Signs 10/12/23 08:14 Height 4 ft 11 in Weight 138 lb 7.205 oz BMI 28.0 BP 169/73 H Blood Pressure Location Lt brachial Position Sitting Pulse 70 Intake Visit Reasons: 8 week follow up Storage Architect Required: Yes Storage Architect Language: Supervisor Roving Name: Krystal Information Interpreted: non-clinical & clinical Accompanied by: Self / Same As Patient Allergies No Known Allergies Allergy (Verified 10/12/23 08:39) Medication List - Last Reconciled 10/12/23 by Laura Cid PA-C allopurinol 100 mg PO DAILY amlodipine 10 mg PO DAILY aspirin 81 mg PO DAILY bisacodyl (Dulcolax (bisacodyl)) 10 mg [place] DAILY PRN blood sugar diagnostic As directed buspirone 5 mg PO TID diclofenac sodium 1% 1 g topical BID docusate sodium (Colace) 200 mg (2 x 100 mg) PO BEDTIME lisinopril 40 mg PO DAILY meclizine 25 mg PO TID PRN methylcellulose (laxative) (Citrucel Sugar Free oral powder) 2 grams PO DAILY PRN 30 days multivit-iron sulf-folic acid 15 mg iron- 400 mcg (Tab-A-Mark Multivitamin w-iron) 1 tab PO DAILY omeprazole 40 mg (2 x 20 mg) PO DAILY 30 days polyethylene glycol 3350 (Miralax) 17 grams PO DAILY pravastatin 20 mg PO DAILY semaglutide (Ozempic) 4 mg subcut DAILY tamsulosin 0.8 mg PO DAILY terazosin 5 mg PO BEDTIME 90 days testosterone 60.75 mg transdermal DAILY 30 days HPI HPI Comments History of Present Illness Details A 77 y/o male seen in August- after dc'd ozempic- however he g=has restarted, no issues- Slight constipation- not consistent with bowel regimen- no abdominal pain, early satiety or rectal bleeding- Reviewed previous MRI once again-discussed importance of follow through high- fiber diet, avoid constipation certainly being diabetic as well as vitamin iron Appetite is good-acid reflux well controlled No fever chills PFSH Medical History Chronic constipation Diabetes COVID-19 vaccine series started History of depression Ambulates with cane Acid reflux Eosinophilia Leukocytosis Rheumatoid arthritis Normocytic anemia Surgical History Acid reflux History of esophagogastroduodenoscopy (EGD) History of cataract extraction History of back surgery History of colonoscopy History of surgical removal of lesion Family History Mother Diabetes Father No problems noted. Social History Household Members: Spouse Housing: House Alcohol intake: never Patient Tobacco Use Status: Former Tobacco user e-Cigarette/Vaping Use: Never Used service: No Current occupational status: retired Current occupation: rt handed Review of Systems Const All systems reviewed & are unremarkable except as noted in HPI and below Card Denies chest pain at rest, Denies diaphoresis, Denies radiating jaw, neck or arm pain, Denies dyspnea, Denies dyspnea on exertion, Denies orthopnea and Reports other (Intermittent -describes as quick -no shortness of breath-) Resp Denies dyspnea and Denies dyspnea on exertion Physical Exam Vital Signs: Last Vital Signs Pulse 70 10/12/23 08:14 BP 169/73 H 10/12/23 08:14 BMI result Body Mass Index 28.0 Const General: cooperative, healthy appearing, comfortable and no acute distress Orientation/consciousness: patient oriented x3 Limitations: language barrier Eyes Sclerae: sclerae normal Resp Effort & Inspection: normal respiratory effort and able to speak in complete sentences Auscultation: clear to auscultation bilaterally, no rales, no rhonchi and no w heezes Cardio Rate: regular rate Rhythm: regular rhythm Heart sounds: S1 normal heart sound present GI Palpation (GI): Soft to palpation and nontender Auscultation: normal bowel sounds Neuro General: patient oriented x3 Extrem General: Yes full ROM Psych Appearance: well kempt Mental Status: mental status grossly normal Speech and movement: Normal speech and movement present and Clear speech present Affect: normal affect Attitude: cooperative Thought process: Normal thought process present Thought content: Normal thought content present Insight: Good insight present (Psych) Results Reviewed Results Reviewed: MR/MR abdomen wo/w con IMPRESSION: 1. Hepatic steatosis. 2. No cholelithiasis, biliary ductal dilatation, or choledocholithiasis. 3. Extensive colonic diverticulosis without significant pericolonic fat stranding or free fluid in included portions of the bowel to suspect acute diverticulitis. No evidence of bowel obstruction. me: Francisco Hernandez Age/Sex: 75/M Attending: Haris Shah MD : 1945 Submitted by: Haris Shah MD Copies to: MELVINCAMILA WINN MR #: [id number] Status: [facility] Collected: 11/20/20 Location: [facility] Received: 11/20/20 Diagnosis A. Duodenum, biopsy: Duodenal mucosa within normal limits; preserved villous architecture and no increased intraepithelial lymphocytes. B. Stomach, biopsy: Gastric antral and body mucosa within normal limits; negative for Helicobacter pylori, intestinal metaplasia and dysplasia. C. Gastroesophageal junction, biopsy: Squamocolumnar junctional mucosa with mild chronic inactive inflammation and intestinal metaplasia consistent with Hare's esophagus; negative for dysplasia (see comment). D. Esophagus, random, biopsy: Squamous mucosa within normal limits; negative for inflammation (including eosinophils), fungal organisms, intestinal metaplasia and dysplasia. E. Colon, transverse, polypectomy: Inflammatory polyp. COMMENT (C): These findings are consistent with Hare's esophagus if the biopsies were taken above the anatomic gastroesophageal junction. Clinical and endoscopic correlation is advised. Clinical History Pre-Op Dx: Hx colon polyps, reflux disease Post-Op Dx: Gastritis, esophagitis, diverticulosis, colon polyp, hemorrhoids Microscopic Description Microscopic sections reviewed. Material Received A: Duodenum bx's B: Stomach bx's C: GE junction D: Random esophagus bx's E: Transverse colon polyp Gross Description Received in five parts. Part A: Received in formalin labeled Duodenum bx's are two glistening, se mitranslucent, soft, pale, razo, irregular tissue fragments, measuring less than 0.05 and 0.15 cm. in greatest dimension, which are Patient: Francisco Hernandez Age/Sex: 75/M MR#: [id number] Page 1 of 2 Assessment & Plan Assessment & Plan (1) Chronic constipation: Comment: Maintain high-fiber diet miralax, colace 200 Qhs high fiber diet Code(s): K59.09 - Other constipation Plan: Consistent bowel regimen Refill for MiraLax and Citrucel (2) Acid reflux: Comment: Acid reflux improved with increased omeprazole Avoid culprits-small portions at a time remain upright 2-3 hours after eating especially evening Always in good spirits Code(s): K21.9 - Gastro-esophageal reflux disease without esophagitis Plan: Continue avoidance of culprits Compliance with PPI (3) Diabetes: Comment: NIDDM Code(s): E11.9 - Type 2 diabetes mellitus without complications Plan: Follow-up PCP has appointment upcoming Plan Follow-up PCP as scheduled-sooner if indicated ED for any chest discomfort ETC-review with patient sterile processing technician F/U 3 mos- review plan of care Medications: Changed From polyethylene glycol 3350 (Miralax) 17 grams PO DAILY 510 grams 6RF To polyethylene glycol 3350 (Miralax) 17 grams PO DAILY 30 days 510 grams 6RF Refilled methylcellulose (laxative) (Citrucel Sugar Free oral powder) 2 grams PO DAILY 30 days PRN 479 grams 5RF constipation Patient Instructions: Very pleasant 77-year-old Gent-follows up today with no specific complaints ROS-nonspecific random wondering question chest pain,-reviewed importance to report any changes in symptoms Maintain high-fiber diet avoid constipation Consistent bowel regimen Reflux precautions reviewed, continue PPI, avoid culprits, small portions at a time remain upright 2-3 hours after eating especially evening meal-complaints with PPI Encouraged to call with questions or concerns Follow-up with PCP as scheduled, sooner if indicated No major barriers to understanding were identified Plan reviewed with sterile processing technician,-questions answered to his satisfaction Follow-up with patient 3 months to review plan of care Coding Level of Care Code Est Pt Level 3 (66959) Diagnoses Chronic constipation K59.09 Acid reflux K21.9 Diabetes E11.9 Time Spent (min) 25 Comment Storage Architect
== END 2023-10-12 08:39 | disposition home or self-care (01) ==
PROVIDERS: PCP Internal Medicine Geriatric Medicine; Visit Provider Physician Assistant
DX: K59.09 Other constipation (principal); K21.9 Gastro-esophageal reflux disease without esophagitis; E11.9 Type 2 diabetes mellitus without complications
CPT/HCPCS: 99213

== ENCOUNTER → 2023-10-12 08:05 | Outpatient (BNVA) | payer OTHER, SELFPAY | PROVIDERS: PCP Internal Medicine Geriatric Medicine; Visit Provider Physician Assistant | DX: K59.09 Other constipation (principal); K21.9 Gastro-esophageal reflux disease without esophagitis; E11.9 Type 2 diabetes mellitus without complications | CPT/HCPCS: 99212 ==

== ENCOUNTER 2023-11-08 11:08 | Outpatient (REF) | payer OTHER, SELFPAY ==
[2023-11-08 12:55] LABS: Alanine Aminotransferase 30 U/L (0-40); Alkaline Phosphatase 101 U/L (39-117); Anion Gap 12 (12-20); Aspartate Amino Transferase 20 U/L (5-37); Bilirubin Total 0.2 mg/dL (0.0-1.0); Blood Urea Nitrogen 20 mg/dL (9-16); Calcium 9.2 mg/dL (8.4-10.2); Carbon Dioxide 25 mmol/L (22-29); Chloride 108 mmol/L (96-108); Estimated Glomerular Filt Rate 49; Glucose Random 244 mg/dL (60-115); Potassium 3.9 mmol/L (3.3-5.1); Sodium 141 mmol/L (135-145); Total Protein 7.3 g/dL (6.5-8.0); Uric Acid 5.1 mg/dL (3.4-7.0)
== END 2023-11-08 11:09 | disposition home or self-care (01) ==
LOC: HO.LAB 11:08
PROVIDERS: Visit Provider Student in an Organized Health Care Education/Training Program
DX: M10.9 Gout, unspecified (principal)
CPT/HCPCS: 36415; 80053; 84550

== ENCOUNTER 2023-11-10 12:33 | Outpatient (AMB) | payer OTHER, SELFPAY ==
[2023-11-10 13:45] VITALS: BP 132/74; PULSE 64; O2SAT 98; BMI 27.9
--- NOTE | 2023-11-10 13:45 | A.OFFVIS_ITS ---
Intake Vital Signs 11/10/23 13:45 Height 4 ft 11 in Weight 138 lb 3.677 oz BMI 27.9 BP 132/74 Blood Pressure Location Rt brachial Position Sitting Pulse 64 Pulse Source Pulse Oximeter Pulse Oximetry (%) 98 Oxygen Delivery Method Room Air Intake Visit Reasons: Gout Intake Note: Patient last seen 05/17/23 presents today for follow up and test results. Denies gout flares. States he's noticed much improvement in terms of his gout. Today he c/o bl shoulder pain, worse on left. Security Controls Assessor Required: Yes Security Controls Assessor Language: Commercial Real Estate Assistant Name: Ann-Marie [id number] Information Interpreted: clinical only Accompanied by: Self / Same As Patient Allergies No Known Allergies Allergy (Verified 11/10/23 13:49) Medication List - Last Reconciled 11/10/23 by Tam Burroughs MD allopurinol 100 mg PO DAILY amlodipine 10 mg PO DAILY aspirin 81 mg PO DAILY bisacodyl (Dulcolax (bisacodyl)) 10 mg [place] DAILY PRN blood sugar diagnostic As directed buspirone 5 mg PO TID diclofenac sodium 1% 1 g topical BID docusate sodium (Colace) 200 mg (2 x 100 mg) PO BEDTIME famotidine 40 mg PO DAILY 90 days lisinopril 40 mg PO DAILY meclizine 25 mg PO TID PRN methylcellulose (laxative) (Citrucel Sugar Free oral powder) 2 grams PO DAILY PRN 30 days multivit-iron sulf-folic acid 15 mg iron- 400 mcg (Tab-A-Mark Multivitamin w- iron) 1 tab PO DAILY omeprazole 40 mg (2 x 20 mg) PO DAILY 30 days polyethylene glycol 3350 (Miralax) 17 grams PO DAILY 30 days pravastatin 20 mg PO DAILY semaglutide (Ozempic) 4 mg subcut DAILY tamsulosin 0.8 mg PO DAILY terazosin 5 mg PO BEDTIME 90 days testosterone 60.75 mg transdermal DAILY 30 days HPI HPI Comments History of Present Illness Details This is a 78-year-old male with gout who presents for follow-up. He was last seen 05/2023 On allopurinol 100 mg daily. No gout flares for long period of time. States that he has been having bilateral shoulder cracking for a long period of time.? Recently he has been having some mild left shoulder pain, especially when lying on his left side at night. [facility] Medical History Chronic constipation Diabetes COVID-19 vaccine series started History of depression Ambulates with cane Acid reflux Eosinophilia Leukocytosis Rheumatoid arthritis Normocytic anemia Surgical History Acid reflux History of esophagogastroduodenoscopy (EGD) History of cataract extraction History of back surgery History of colonoscopy History of surgical removal of lesion Family History Mother Diabetes Father No problems noted. Social History Household Members: Spouse Housing: House Alcohol intake: never Patient Tobacco Use Status: Former Tobacco user e-Cigarette/Vaping Use: Never Used service: No Current occupational status: retired Current occupation: rt handed Review of Systems Musc Reports arthralgias Physical Exam Vital Signs: Last Vital Signs Pulse 64 11/10/23 13:45 BP 132/74 11/10/23 13:45 Pulse Ox 98 11/10/23 13:45 Oxygen Delivery Method Room Air 11/10/23 13:45 BMI result Body Mass Index 27.9 Const General: cooperative, healthy appearing and comfortable Nutritional Appearance: average body habitus Orientation/consciousness: patient oriented x3 Limitations: no limitations HEENT Head: Yes normocephalic and Yes atraumatic Resp Effort & Inspection: normal respiratory effort and able to speak in complete sentences Neuro General: patient oriented x3 Extrem Other: osteoarthritic changes of both hands with no active synovitis No tophi noted Negative straight leg raise test bilaterally No trochanteric bursa area tenderness bilaterally Bilateral shoulder crepitus Assessment & Plan Assessment & Plan (1) Gout: Code(s): M10.9 - Gout, unspecified Qualifiers: Gout site: multiple sites Gout etiology: idiopathic Chronicity: chron ic Presence of tophus: without tophus Qualified Code(s): M1A.09X0 - Idiopathic chronic gout, multiple sites, without tophus (tophi) Plan: 78-year-old male with crystal proven gout returns for follow-up. He has had no gout flares on allopurinol 100 mg daily. Uric acid level at goal. Continue allopurinol 100 mg daily. Check uric acid level before next visit in 6 months PT ordered for left shoulder osteoarthritis Plan I spent 16 minutes reviewing patient's chart, evaluating patient, ordering diagnostic workup, counseling patient and documenting in the chart Coding Level of Care Code Est Pt Level 3 (30747) Diagnoses Idiopathic chronic gout of multiple sites without tophus M1A.09X0 Gout site: multiple sites Gout etiology: idiopathic Chronicity: chronic Presence of tophus: without tophus
== END 2023-11-10 14:09 | disposition home or self-care (01) ==
PROVIDERS: PCP Internal Medicine Geriatric Medicine; Visit Provider Student in an Organized Health Care Education/Training Program
DX: M1A.09X0 Idiopathic chronic gout, multiple sites, without tophus (tophi) (principal)
CPT/HCPCS: 99213

== ENCOUNTER → 2023-11-10 12:33 | Outpatient (BNVA) | payer OTHER, SELFPAY | PROVIDERS: PCP Internal Medicine Geriatric Medicine; Visit Provider Student in an Organized Health Care Education/Training Program | DX: M1A.09X0 Idiopathic chronic gout, multiple sites, without tophus (tophi) (principal) | CPT/HCPCS: 99212 ==

== ENCOUNTER 2023-12-17 09:22 | Outpatient (REF) | payer OTHER, SELFPAY ==
[2023-12-17 10:10] LABS: Hematocrit 44.9 % (42.0-52.0); Hemoglobin 14.7 g/dl (14.0-18.0); Mean Corpuscular HGB Conc 32.7 g/dl (31.0-36.0); Mean Corpuscular Hemoglobin 28.2 pg (27.0-33.0); Mean Platelet Volume 9.6 fL (9.4-12.4); Platelet Count 255 X10*3/uL (160-400); Red Blood Count 5.22 X10*6/uL (4.60-5.80); Red Cell Distribution Width 13.2 % (11.0-16.0)
[2023-12-17 10:59] LABS: PSA,Total (Free>4and<10) 1.82 ng/mL (0.00-4.00)
[2023-12-23 00:59] LABS: Testosterone, Free 37.3 pg/mL (30.0-135.0); Testosterone, Total 175 ng/dL (250-1100)
== END 2023-12-17 09:23 | disposition home or self-care (01) ==
LOC: HO.LAB 09:22
PROVIDERS: PCP Internal Medicine Geriatric Medicine; Visit Provider Nurse Practitioner Family
DX: Z12.5 Encounter for screening for malignant neoplasm of prostate (principal); E29.1 Testicular hypofunction
CPT/HCPCS: 36415; 84153; 84402; 84403; 85027

== ENCOUNTER 2024-02-03 14:49 | Outpatient (AMB) | payer OTHER, SELFPAY ==
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
[2024-02-03 14:54] VITALS: BP 110/64; PULSE 66; BMI 28.0
== END 2024-02-03 15:14 | disposition home or self-care (01) ==
PROVIDERS: PCP Internal Medicine Geriatric Medicine; Visit Provider Internal Medicine
DX: R07.2 Precordial pain (principal); R00.2 Palpitations
CPT/HCPCS: 93010; 99204

== ENCOUNTER → 2024-02-03 14:49 | Outpatient (BNVA) | payer OTHER, SELFPAY | PROVIDERS: PCP Internal Medicine Geriatric Medicine; Visit Provider Internal Medicine | DX: R07.9 Chest pain, unspecified (principal); R00.2 Palpitations | CPT/HCPCS: 93005; 99202 ==

== ENCOUNTER 2024-02-07 15:41 | Outpatient (REF) | payer OTHER, SELFPAY ==
[2024-02-07 16:08] LABS: Basophils Absolute Auto 0.1 X10*3/uL (0.0-0.2); Basophils Percent Auto 0.9 % (0-2); Eosinophils Absolute Auto 2.4 X10*3/uL (0.0-0.4); Eosinophils Percent Auto 18.7 % (0-4); Hematocrit 40.4 % (42.0-52.0); Hemoglobin 13.6 g/dl (14.0-18.0); Imm Gran Abs Auto 0.08 X10*3/uL (0.00-0.03); Imm Gran Pct Auto 0.6 % (0.0-0.4); Lymphocytes Absolute Auto 3.4 X10*3/uL (1.2-4.9); Lymphocytes Percent Auto 26.7 % (20-40); MANUAL DIFF FLAG SCAN; Mean Corpuscular HGB Conc 33.7 g/dl (31.0-36.0); Mean Corpuscular Hemoglobin 28.6 pg (27.0-33.0); Mean Corpuscular Volume 85.1 fL (80.0-98.0); Mean Platelet Volume 8.9 fL (9.4-12.4); Monocytes Percent Auto 7.8 % (2-11); Neutrophils Absolute Auto 5.7 x10*3/uL (2.0-8.3); Neutrophils Percent Auto 45.3 % (45-73); Platelet Count 307 X10*3/uL (160-400); Red Blood Count 4.75 X10*6/uL (4.60-5.80); Red Cell Distribution Width 13.7 % (11.0-16.0); SCAN SMEAR FLAG 1; White Blood Count 12.7 X10*3/uL (4.8-10.8)
[2024-02-07 16:25] LABS: SLIDE REVIEW VERIFIED
[2024-02-07 16:29] LABS: Anion Gap 10 (12-20); Blood Urea Nitrogen 23 mg/dL (9-16); Calcium 9.3 mg/dL (8.4-10.2); Carbon Dioxide 25 mmol/L (22-29); Chloride 108 mmol/L (96-108); Estimated Glomerular Filt Rate 46; Glucose Fasting 196 mg/dL (60-99); Iron 59 mcg/dL (45-160); Percent Iron Saturation 27 % (15-50); Potassium 4.2 mmol/L (3.3-5.1); Sodium 139 mmol/L (135-145); Total Iron Binding Capacity 216 mcg/dL (228-428); Unsaturated Iron Binding 157 ug/dL
[2024-02-07 16:43] LABS: Ferritin 223 ng/mL (20-250)
== END 2024-02-07 15:42 | disposition home or self-care (01) ==
LOC: HO.LAB 15:41
PROVIDERS: Internal Medicine; PCP Internal Medicine Geriatric Medicine; Visit Provider Nurse Practitioner Family
DX: D64.9 Anemia, unspecified (principal)
CPT/HCPCS: 36415; 80048; 82728; 83540; 85025

== ENCOUNTER 2024-02-10 11:43 | Outpatient (AMB) | payer OTHER, SELFPAY ==
--- NOTE | 2024-02-10 11:58 | A.OFFVIS_ITS ---
Intake Visit Reasons: follow up/labs(set) Intake Note: Patient presents today for: Hypogonadism/BPH/Testicular Hypofunction Urology Medication: terazosin and testosterone Blood Thinner: aspirin PVR: 14ml's Automatic Vulcanizing Operator Required: Yes Automatic Vulcanizing Operator Name: ROSA EDWARDSSANDOR Accompanied by: Self / Same As Patient Allergies No Known Allergies Allergy (Verified 02/10/24 21:27) Medication List - Last Reconciled 02/10/24 by Soha Santoyo MULTIPLE NEEDLE STITCHER- allopurinol 100 mg PO DAILY amlodipine 10 mg PO DAILY aspirin 81 mg PO DAILY bisacodyl (Dulcolax (bisacodyl)) 10 mg DE DAILY PRN blood sugar diagnostic As directed buspirone 5 mg PO TID diclofenac sodium 1% 1 g topical BID docusate sodium (Colace) 200 mg (2 x 100 mg) PO BEDTIME famotidine 40 mg PO DAILY 90 days lisinopril 40 mg PO DAILY meclizine 25 mg PO TID PRN methylcellulose (laxative) (Citrucel Sugar Free oral powder) 2 grams PO DAILY PRN 30 days multivit-iron sulf-folic acid 15 mg iron- 400 mcg (Tab-A-Mark Multivitamin w- iron) 1 tab PO DAILY omeprazole 40 mg (2 x 20 mg) PO DAILY 30 days polyethylene glycol 3350 (Miralax) 17 grams PO DAILY 30 days pravastatin 20 mg PO DAILY semaglutide (Ozempic) 4 mg subcut DAILY tamsulosin 0.8 mg PO DAILY terazosin 5 mg PO BEDTIME 90 days testosterone 60.75 mg transdermal DAILY 30 days HPI Comments Details: Francisco is a pleasant 78 year old Wolof speaking male patient of Dr. Lund. He has a past medical history of acid reflux, chronic constipation, diabetes, depression, normocytic anemia, and rheumatoid arthritis. He presents to the office today for follow-up regarding his hypogonadism and benign prostatic hyperplasia. He reports to be doing and feeling well. When asked he reports significant improvement in lower urinary tract symptoms on terazosin 5 mg daily. Recent PSA, testosterone, and H/H levels reviewed with the patient today. As noted and trended below. It appears patient remains with low T levels however patient reports he is not always compliant with testosterone therapy as presc ribed. He reports at times he is he forgets to apply it. Discussed treatment options for hypogonadism at length. Discussed at length importance of compliance. Discussed obtaining labs in 3 months for further assessment evaluation. He otherwise denies any urinary issues or concerns at this time. He denies dysuria, hematuria, fever, and or chills. In office urinalysis results reviewed with the patient today. PVR 14 mL Testosterone: 12/24 155, 02/23 124, 04/25 78, 06/25 495, 10/27 458, 09/27 125, 02/25 156, 09/28 381, 04/28 144, 08/28 142, 12/28 175 Free testosterone: 02/25 30.4, 04/28 30.5, 08/28 32.1, 12/28 37.3 H/H: 11/26 13.9/41.9, 05/29 14.6/45.8, 05/29 14.2/44.4, 08/28 12.9/39.5, 12/28 14.7/44.9, 02/27 13.6/40.4 PSA: 02/24 2.2, 09/27 1.7, 04/28 3.0, 12/28 1.8 Discussed at length importance of managing diabetes for improvement in lower urinary tract symptoms as well as overall health and well-being. He otherwise offers no issues or concerns at this time. [facility] Medical History Chronic constipation Diabetes COVID-19 vaccine series started History of depression Ambulates with cane Eosinophilia Leukocytosis Rheumatoid arthritis Normocytic anemia Surgical History Acid reflux History of esophagogastroduodenoscopy (EGD) History of cataract extraction History of back surgery History of colonoscopy History of surgical removal of lesion Family History Mother Diabetes Father No problems noted. Social History Household Members: Spouse Housing: House Alcohol intake: never Patient Tobacco Use Status: Former Tobacco user e-Cigarette/Vaping Use: Never Used service: No Current occupational status: retired Current occupation: rt handed Review of Systems Const Reports as per HPI Eyes Reports no additional complaints ENT Reports no additional complaints Card Reports as per [facility] Resp Reports no additional complaints GI Reports as per [facility] Reports as per [facility] Neuro Reports as per [facility] Psych Reports as per [facility] Endo Reports no additional complaints Physical Exam Const General: cooperative, healthy appearing, comfortable, no acute distress, well developed, alert and awake Orientation/consciousness: patient oriented x3 Limitations: no limitations HEENT Head: Yes normal to inspection, Yes normocephalic and Yes atraumatic Ears: hearing grossly normal bilaterally Eyes General: appearance normal, both eyes and all related structures Neck Neck: Yes normal visual inspection and Yes trachea midline Chest Chest palpation & inspection: normal inspection of the chest Resp Effort & Inspection: normal respiratory effort and able to speak in complete sentences Cardio Rate: regular rate GI Inspection: Yes normal to inspection General: Yes no CVA tenderness Back/Spine/Pelvis Back: no CVA tenderness Skin General skin exam: no rashes or lesions noted Neuro General: patient oriented x3 Extrem General: Yes normal to inspection Psych Appearance: grossly normal and well kempt Mental Status: mental status grossly normal Speech and movement: Normal speech and movement present and Clear speech present Affect: normal affect Attitude: cooperative Thought process: Normal thought process present Thought content: Normal thought content present Insight: Fair insight present (Psych) Judgement: Fair judgement present (Psych) Office Procedures Post Void Residual Post Residual Void Post Void Residual (PVR): 14 51697-[id number] Void Residual by ultrasound Results AMB Urinalysis, Automated UA Leukoctes 0 Gab/uL Last Edit by Rivalfox on 02/10/24 12:17 UA Nitrite Negative Last Edit by Rivalfox on 02/10/24 12:17 UA Urobilinogen 0.2 mg/dL Last Edit by Rivalfox on 02/10/24 12:17 UA Protein 0 mg/dL Last Edit by Rivalfox on 02/10/24 12:17 UA pH 5.5 Last Edit by Rivalfox on 02/10/24 12:17 UA Blood 0 Alf/uL Last Edit by Rivalfox on 02/10/24 12:17 UA Specific Wilmore 1.010 Last Edit by Rivalfox on 02/10/24 12:17 UA Ketone Negative Last Edit by Rivalfox on 02/10/24 12:17 UA Bilirubin 0 mg/dL Last Edit by Noelle Rosen on 02/10/24 12:17 UA Glucose 1000 mg/dL Last Edit by Noelle Rosen on 02/10/24 12:17 Results Reviewed Results Reviewed: Laboratory Last Values Urine pH (Auto) 5.5 02/10/24 12:12 Specific Wil[place] (Auto) 1.010 02/10/24 12:12 Urine Protein (Auto) 0 mg/dL 02/10/24 12:12 Glucose (UA)(Auto) 1000 mg/dL 02/10/24 12:12 Urine Ketones (Auto) Negative 02/10/24 12:12 Urine Blood (Auto) 0 Alf/uL 02/10/24 12:12 Urine Nitrite (Auto) Negative 02/10/24 12:12 Urine Bilirubin (Auto) 0 mg/dL 02/10/24 12:12 Urine Urobilinogen (Auto) 0.2 mg/dL 02/10/24 12:12 Leukocyte Esterase (Auto) 0 Gab/uL 02/10/24 12:12 Assessment & Plan Assessment & Plan (1) Hypogonadism in male: Code(s): E29.1 - Testicular hypofunction Category: Medical (2) Lower urinary tract symptoms: Code(s): R39.9 - Unspecified symptoms and signs involving the genitourinary system Category: Medical Plan In office urinalysis results reviewed with the patient today; as noted above. PVR 14mL. Discussed at length importance of managing diabetes for improvement in lower urinary tract symptoms as well as overall health and well-being. Discussed and stressed the importance of taking medication as prescribed. Recent testosterone, PSA, and H/H results reviewed with the patient today. Continue 5 mg of terazosin as prescribed. Discussed at length further treatment options for hypogonadism. Patient reports significant improvement in lower urinary tract symptoms on 5 mg of terazosin daily and is happy with his current voiding parameters with this medication. Discussed compliance of testosterone as prescribed and will reassess testosterone levels in 3 months Patient denies any bothersome urinary issues or concerns at this time. Testosterone free and total and CBC in 3 months. Follow-up in 3 months with lab to be completed prior; or sooner with any issues, concerns, and or questions. Orders: Orders Complete Blood Count no Diff 3 Months E29.1 - Testicular hypofunction AMB Urinalysis Automated Today Z13.9 - Encounter for screening, unspecified AMB Post Void Residual by ultrasound Today R39.9 - Unspecified symptoms and signs involving the genitourinary system Testosterone, Free/Total 3 Months E29.1 - Testicular hypofunction Medications: Refilled terazosin 5 mg PO BEDTIME 90 days 90 caps 1RF E29.1 - Testicular hypofunction, N40.1 - Benign prostatic hyperplasia with lower urinary tract symptoms, R35.0 - Frequency of micturition testosterone 3 pumps applied daily - 60.75 mg transdermal DAILY 30 days 150 grams 5RF E29.1 - Testicular hypofunction Patient Instructions: The patient had an opportunity to ask questions regarding the treatment plan. All questions were answered. Physical exam, labs, and imaging were discussed and reviewed in detail. As well as risks, benefits, and discussion of treatment choices. No major barriers to understanding were identified. The patient expressed understanding and agreement with the above treatment plan. The patient was made aware they should contact our office by phone for worsening of their current condition, the appearance of new symptoms, or with any questions or concerns. Compliance is encouraged with any medications and follow up testing that is ordered. It is a privilege to be allowed the opportunity to participate in? your urological care.? Again, if you have any questions or concerns If you have any questions or concerns please do not hesitate to contact me. The office is [phone]. This note is constructed using voice recognition software. While every effort has been made to ensure accuracy reimbursement rep errors may have been included. Yours sincerely, BETSY Fam Coding Level of Care Code Est Pt Level 4 (09994) Diagnoses Hypogonadism in male E29.1 Lower urinary tract symptoms R39.9 CPT Codes Post Residual Void - PVR CPT Code: 77083-Pfzo Void Residual by ultrasound ([id number])
== END 2024-02-10 12:36 | disposition home or self-care (01) ==
PROVIDERS: PCP Internal Medicine Geriatric Medicine; Visit Provider Nurse Practitioner Family
DX: E29.1 Testicular hypofunction (principal); R39.9 Unspecified symptoms and signs involving the genitourinary system; Z13.9 Encounter for screening, unspecified
CPT/HCPCS: 99214

== ENCOUNTER → 2024-02-10 11:43 | Outpatient (BNVA) | payer OTHER, SELFPAY | PROVIDERS: PCP Internal Medicine Geriatric Medicine; Visit Provider Nurse Practitioner Family | DX: E29.1 Testicular hypofunction (principal); R39.9 Unspecified symptoms and signs involving the genitourinary system | CPT/HCPCS: 51798; 81003; 99212 ==

== ENCOUNTER → 2024-02-23 07:39 | Outpatient (REF) | payer OTHER, SELFPAY ==
--- NOTE | 2024-02-23 07:54 | CA_ITS ---
Transthoracic Echocardiogram Amended Patient (Last, First, Middle): Francisco Lorenzo D Gender: Male Date of : 1945 Age: 78 Procedure Date: 02/23/2024 Procedure Type: Transthoracic Echocardiogram Location: OP Height: 152.4 cm Weight: 62.6 kg BSA: 1.59 m2 Heart Rate: bpm BP: 118 / 66 mmHg Frame Operator: TO Referring MD: Jacques Castellon MD Supply Chain Planner: Geovanni Yañez MD Symptoms: R07.2 - Precordial pain Study Quality: Good ECG Rhythm: Sinus Conclusions: - 1. Normal LV systolic function with LVEF of 60-65% with impaired relaxation filling pattern 2. Trivial aortic regurgitation 3. Normal RV systolic pressure 4. Upper limits of normal ascending aortic size 5. No gross pericardial effusion Findings Left Ventricle Normal left ventricular size and systolic function. There is mildly increased left ventricular wall thickness. The visually estimated ejection fraction is between 60-65%. Spectral Doppler is indicative of an impaired relaxation filling pattern. E/E prime ratio is between 8 and 15 consistent with indeterminate filling pressures. Peak GLS is -17.6%, borderline normal Right Ventricle Normal right ventricular cavity size and systolic function. Atria Both atria are normal in size. There is no evidence of interatrial shunt. Aortic Valve There is mild calcification of the aortic valve. There is no aortic valve stenosis. There is trace (trivial) aortic valve regurgitation. Mitral Valve Normal mitral valve structure and function. There is trace mitral valve regurgitation. There is no mitral valve stenosis. Pulmonic Valve The pulmonic valve is likely normal. Tricuspid Valve Normal tricuspid valve structure. There is trace tricuspid valve regurgitation. The right ventricular systolic pressure is normal. The right ventricular systolic pressure is 19 mmHg. Normal right atrial pressure. There is no evidence of pulmonary hypertension. Great Vessels The pulmonary artery was not well visualized. Venous The inferior vena cava is normal in size and collapses greater than 50% with inspiration. Pericardium/Pleural There is no evidence of pericardial effusion. Prior Study Comparison No prior study available for comparison. Measurements 2D Linear Measurements IVSd: 1.36 0.6-0.9/0.6-1.0 cm LVIDd: 4.05 3.9-5.3/4.2-5.9 cm LVIDd Index: 2.55 2.4-3.2/2.2-3.1 cm/m2 LVIDs: 2.73 2.0-3.6 cm LVPWd: 1.21 0.7-1.1 cm LA Diam: 3.80 2.7-3.8/3.0-4.0 cm LAIDs Index: 2.39 1.5-2.3 cm/m2 LV Mass: 232.63 67-162/88-224 g LV Mass Index: 146.31 43-95/49-115 g/m2 LVOT Diam: 2.10 3.0+(-)1.3 cm 2D Volumes LA Vol: 28.30 2D Systolic Function EF 4C: 57.00 >55% EF 2C: 61.20 >55% EF BiP: 60.00 >55% Mitral Valve MV VTI: 0.23 MV Pk Leobardo: 1.00 MV Mn Leobardo: 0.56 MV Pk Grad: 4.00 MV Mn Grad: 1.00 MV Pk E: 0.60 MV PK A: 0.94 MV Decel Time: 213.00 E/A: 0.60 E'Lateral: 4.46 E'Medial: 3.26 E/E' Med: 18.50 E/E' Lat: 13.50 PHT: 62.00 MVA PHT: 3.55 MVA Continuity: 2.94 Decel Roane: 2.84 Aortic Valve AoV Pk Leobardo: 1.84 AoV Mn Leobardo: 1.28 AoV VTI: 0.37 AoV Pk Grad: 14.00 Aov Mn Grad: 7.00 ELOINA Cont.VTI: 1.80 LVOT LVOT Pk Leobardo: 0.85 LVOT Mn Leobardo: 0.56 LVOT VTI: 0.19 LVOT Pk Grad: 3.00 LVOT Mn Grad: 1.00 LVOT Diam: 2.10 LVOT Area: 3.46 Diastolic Function MV Pk E: 0.60 MV Pk A: 0.94 E/A: 0.60 E'Medial: 3.26 E/E' Med: 18.50 E' Laterial: 4.46 E/E' Lat: 13.50 Right Ventricle TAPSE (mm): 31.00 TVS' Leobardo: 16.00 Tricuspid Valve TR Pk Leobardo: 2.00 TR Pk Grad: 16.00 RA Press: 3.00 RVSP: 19.00 Great Vessels Aorta Ao Asc: 3.50 2.1-3.4 cm Updated in Other Vendor System with Status of Final Geovanni Yañez MD electronically signed on 02/23/2024 11:02:44 AM with status of Final
--- NOTE | 2024-02-23 07:54 | HM_ITS ---
* Total monitoring time 3 days. * Underlying rhythm is sinus with an average rate of 69/Min. * Rare supraventricular ectopy. * Rare ventricular ectopy. * No sustained arrhythmias. * No significant pauses or high-grade AV blocks. * Patient markers used in association with sinus rhythm. * No diary events. MTDD
== END ==
LOC: HO.CARD 07:39
PROVIDERS: PCP Internal Medicine Geriatric Medicine; Visit Provider Internal Medicine
DX: R00.2 Palpitations (principal); R07.2 Precordial pain
CPT/HCPCS: 93242; 93306; 93356

== ENCOUNTER → 2024-02-23 07:54 | Outpatient (BNV) | payer OTHER, SELFPAY | PROVIDERS: PCP Internal Medicine Geriatric Medicine; Visit Provider Internal Medicine Cardiovascular Disease | DX: I47.10 Supraventricular tachycardia, unspecified (principal) | CPT/HCPCS: 93244; 93306; 93356 ==

== ENCOUNTER → 2024-03-15 08:59 | Outpatient (REF) | payer OTHER, SELFPAY ==
--- NOTE | ~2024-03-15 | NM_ITS ---
EXERCISE MYOCARDIAL PERFUSION STUDY INDICATION: Chest pain TECHNIQUE: The patient was brought in for an exercise perfusion study on 03/15/2024. Patient performed exercise as per Lauri protocol and was injected 25 mCi of sestamibi once target heart rate was achieved. Images were obtained using the SPECT gamma camera interlaced with the gating device. Images were obtained in supine position. Resting perfusion study was performed on 03/20/2024. Patient was administered 25 mCi of sestamibi intravenously at rest. Images were then obtained in supine position. Images were processed with the software and compared side to side in short axis, horizontal long axis and vertical long axis views. Total DLP 36mGy-cm. FINDINGS: Raw images were reviewed. The stress perfusion study showed diminished tracer uptake along the inferior wall. There is improvement with CT attenuation correction suggestive of diaphragmatic attenuation artifact. The gated study shows normal LV systolic function with calculated LVEF of 62%. LV cavity is normal in size. The gated study shows normal wall thickening and contraction of segments. Resting study shows diminished tracer uptake along the inferior wall. There is improvement with CT attenuation correction suggestive of diaphragmatic attenuation artifact. Gating at rest reveals normal wall motion with ejection fraction at > 70%. The findings are consistent with fixed inferior perfusion defects suspected to be from diaphragmatic attenuation artifact. No clear reversible defects. NM/NM cardiolite stress test IMPRESSION: 1. Myocardial perfusion imaging study shows no clear evidence of any ischemia or infarction. Fixed inferior perfusion defect suspected to be from diaphragmatic attenuation artifact. 2. Gated LVEF is 62% during stress and >70% during rest. 3. Transient ischemic dilatation not present. EKG component of the test reported separately.
--- NOTE | 2024-03-15 09:02 | CA_ITS ---
Acquisition Time: 2024-03-15 09:19:26 Total Exercise Time: 00:05:00 Test Indications: PRECORDIAL PAIN Medications: Protocol: HEENA Max HR: 139 BPM 97% of Pred: 142 BPM Max BP: 144/072 mmHG Max Work Load: 4.6 METS Exercise stress text exercise 5 minj of Heena protocol stage 1 achieving 97% MPHR, without anginal symptoms, with isolated PVCs, with normotensive response to exercise, with brisk HR response, without EKG changes. Nuclear images pending. Test reviewed with Dr. Juárez Referred By: Jacques Castellon Overread By: Kait Peña
== END ==
LOC: HO.CARD 08:59
PROVIDERS: PCP Internal Medicine Geriatric Medicine; Visit Provider Internal Medicine
DX: R07.2 Precordial pain (principal)
CPT/HCPCS: 78452; 93017; A9500

== ENCOUNTER → 2024-03-15 09:02 | Outpatient (BNV) | payer OTHER, SELFPAY | PROVIDERS: PCP Internal Medicine Geriatric Medicine; Visit Provider Nurse Practitioner | DX: R07.9 Chest pain, unspecified (principal) | CPT/HCPCS: 78452; 93016; 93018 ==

== ENCOUNTER 2024-04-11 14:03 | Outpatient (AMB) | payer OTHER, SELFPAY ==
--- NOTE | 2024-04-11 14:37 | A.OFFVIS_ITS ---
Vital Signs 04/11/24 14:39 Height 4 ft 11 in Weight 136 lb 10.986 oz BMI 27.6 BP 120/60 Blood Pressure Location Lt brachial Position Sitting Pulse 63 Pulse Source Pulse Oximeter Intake Visit Reasons: follow up Communications Consultant Required: Yes Communications Consultant Name: RADHA [id number] Allergies No Known Allergies Allergy (Verified 02/10/24 21:27) Medication List - Last Reconciled 04/11/24 by Kait Peña NP allopurinol 100 mg PO DAILY amlodipine 10 mg PO DAILY aspirin 81 mg PO DAILY blood sugar diagnostic As directed buspirone 5 mg PO TID diclofenac sodium 1% 1 g topical BID docusate sodium (Colace) 200 mg (2 x 100 mg) PO BEDTIME famotidine 40 mg PO DAILY 90 days lisinopril 40 mg PO DAILY meclizine 25 mg PO TID PRN multivit-iron sulf-folic acid 15 mg iron- 400 mcg (Tab-A-Mark Multivitamin w- iron) 1 tab PO DAILY omeprazole 40 mg (2 x 20 mg) PO DAILY 30 days pravastatin 20 mg PO DAILY semaglutide (Ozempic) 4 mg subcut DAILY terazosin 5 mg PO BEDTIME 90 days testosterone 60.75 mg transdermal DAILY 30 days HPI Comments Details: 78-year-old male presents for a follow-up. Medical history iincluding diabetes, hypertension, dyslipidemia, chronic kidney disease. Per last visit he had some chest pain, he apparently had some pain few months back but nothing since then. He reports today he has had no chest pains. He also denies any palpitations, shortness of breath, or swelling. He drinks about 3 cups of coffee a day. 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 [facility] Medical History Chronic constipation Diabetes COVID-19 vaccine series started History of depression Ambulates with cane Eosinophilia Leukocytosis Rheumatoid arthritis Normocytic anemia Surgical History Acid reflux History of esophagogastroduodenoscopy (EGD) History of cataract extraction History of back surgery History of colonoscopy History of surgical removal of lesion Family History Mother Diabetes Father No problems noted. Social History Household Members: Spouse Housing: House Alcohol intake: never Patient Tobacco Use Status: Former Tobacco user e-Cigarette/Vaping Use: Never Used service: No Current occupational status: retired Current occupation: rt handed Review of Systems Const Denies weakness ENT Denies dizziness Card Denies chest pain, Denies chest pain with activity, Denies syncope, Denies rapid heart rate, Denies pedal edema, Denies edema, Denies leg edema, Denies lightheadedness, Denies palpitations, Denies dyspnea, Denies dyspnea on exertion and Denies orthopnea Resp Denies cough, Denies dyspnea and Denies dyspnea on exertion GI Denies hematochezia and Denies change in stool character Musc Denies abnormal gait, Denies muscle cramps, Denies muscle weakness, Denies numbness, Denies radiating pain into limb and Denies tingling Neuro Denies abnormal gait, Denies dizziness, Denies syncope, Denies numbness, Denies tingling and Denies weakness Endo Denies palpitations Physical Exam Vital Signs: Last Vital Signs Pulse 63 04/11/24 14:39 BP 120/60 04/11/24 14:39 BMI result Body Mass Index 27.6 Results Reviewed Results Reviewed: Protocol: LAURI Max HR: 139 BPM 97% of Pred: 142 BPM Max BP: 144/072 mmHG Max Work Load: 4.6 METS Exercise stress text exercise 5 minj of Lauri protocol stage 1 achieving 97% MPHR, without anginal symptoms, with isolated PVCs, with normotensive response to exercise, with brisk HR response, without EKG changes. Nuclear images pending. Test reviewed with Dr. Juárez NM/NM cardiolite stress test IMPRESSION: 1. Myocardial perfusion imaging study shows no clear evidence of any ischemia or infarction. Fixed inferior perfusion defect suspected to be from diaphragmatic attenuation artifact. 2. Gated LVEF is 62% during stress and >70% during rest. 3. Transient ischemic dilatation not present. Conclusions: - 1. Normal LV systolic function with LVEF of 60-65% with impaired relaxation filling pattern 2. Trivial aortic regurgitation 3. Normal RV systolic pressure 4. Upper limits of normal ascending aortic size 5. No gross pericardial effusion * Total monitoring time 3 days. * Underlying rhythm is sinus with an average rate of 69/Min. * Rare supraventricular ectopy. * Rare ventricular ectopy. * No sustained arrhythmias. * No significant pauses or high-grade AV blocks. * Patient markers used in association with sinus rhythm. * No diary events. Assessment & Plan Assessment & Plan (1) Heart palpitations: Code(s): R00.2 - Palpitations Category: Medical (2) Precordial chest pain: Code(s): R07.2 - Precordial pain Category: Medical Plan Myocardial imaging shows no clear ischemia or infarction. Echo had ormal LVEF and tival aortic regurgitation. Upper limits of normal ascending aortic size. Holter showed rare ectopy. Discussed triggers of palpitations such as stress, poor sleep, dehydration, and caffeine. Patient plans to reduce coffee. Advised he can follow-up as needed as his PCP tends to his HTN. If any anginal symptoms occur or increase in palpitations to please schedule an appt or ED care if needed. Anginal symptoms reviewed. Coding Level of Care Code Est Pt Level 4 (63780) Diagnoses Heart palpitations R00.2 Precordial chest pain R07.2
[2024-04-11 14:39] VITALS: BP 120/60; PULSE 63; BMI 27.6
== END 2024-04-11 14:57 | disposition home or self-care (01) ==
PROVIDERS: PCP Internal Medicine Geriatric Medicine; Visit Provider Nurse Practitioner
DX: R00.2 Palpitations (principal); R07.2 Precordial pain
CPT/HCPCS: 99214

== ENCOUNTER → 2024-04-11 14:03 | Outpatient (BNVA) | payer OTHER, SELFPAY | PROVIDERS: PCP Internal Medicine Geriatric Medicine; Visit Provider Nurse Practitioner | DX: R00.2 Palpitations (principal); R07.2 Precordial pain | CPT/HCPCS: 99212 ==

== ENCOUNTER 2024-05-04 10:26 | Outpatient (REF) | payer OTHER, SELFPAY ==
[2024-05-04 11:34] LABS: Hemoglobin 13.7 g/dl (14.0-18.0); Mean Corpuscular HGB Conc 32.6 g/dl (31.0-36.0); Mean Corpuscular Hemoglobin 28.1 pg (27.0-33.0); Mean Corpuscular Volume 86.2 fL (80.0-98.0); Mean Platelet Volume 10.1 fL (9.4-12.4); Platelet Count 261 X10*3/uL (160-400); Red Blood Count 4.87 X10*6/uL (4.60-5.80); Red Cell Distribution Width 13.6 % (11.0-16.0); White Blood Count 11.2 X10*3/uL (4.8-10.8)
[2024-05-11 10:37] LABS: Testosterone, Free 26.6 pg/mL (30.0-135.0); Testosterone, Total 154 ng/dL (250-1100)
== END 2024-05-04 10:27 | disposition home or self-care (01) ==
LOC: HO.LAB 10:26
PROVIDERS: PCP Internal Medicine Geriatric Medicine; Visit Provider Nurse Practitioner Family
DX: E29.1 Testicular hypofunction (principal)
CPT/HCPCS: 36415; 84402; 84403; 85027

== ENCOUNTER 2024-05-15 09:04 | Outpatient (AMB) | payer OTHER, SELFPAY ==
--- NOTE | 2024-05-15 09:26 | A.OFFVIS_ITS ---
Intake Visit Reasons: 3m/labs Intake Note: Patient presents today for: Hypogonadism/BPH/Testicular Hypofunction, t estosterone lab results Total Testosterone: 154 Free Testodterone: 26.6 Urology Medication: terazosin and testosterone Blood Thinner: aspirin PVR: 14ml's Tester Sound Required: Yes Tester Sound Services: Tester Sound Present Tester Sound Name: ROSA SOTO-CMI Accompanied by: Self / Same As Patient Allergies No Known Allergies Allergy (Verified 05/15/24 15:07) Medication List - Last Reconciled 05/15/24 by SWETA Fam- allopurinol 100 mg PO DAILY amlodipine 10 mg PO DAILY aspirin 81 mg PO DAILY blood sugar diagnostic As directed buspirone 5 mg PO TID diclofenac sodium 1% 1 g topical BID docusate sodium (Colace) 200 mg (2 x 100 mg) PO BEDTIME famotidine 40 mg PO DAILY 90 days lisinopril 40 mg PO DAILY meclizine 25 mg PO TID PRN multivit-iron sulf-folic acid 15 mg iron- 400 mcg (Tab-A-Mark Multivitamin w- iron) 1 tab PO DAILY omeprazole 40 mg (2 x 20 mg) PO DAILY 30 days pravastatin 20 mg PO DAILY semaglutide (Ozempic) 4 mg subcut DAILY terazosin 5 mg PO BEDTIME 90 days testosterone 60.75 mg transdermal DAILY 30 days HPI Comments Details: Francisco is a pleasant 78 year old Thai speaking male patient of Dr. Lund. He has a past medical history of acid reflux, chronic constipation, diabetes, depression, normocytic anemia, and rheumatoid arthritis. He presents to the office today for follow-up regarding his hypogonadism and benign prostatic hyperplasia. He reports to be doing and feeling well. When asked he reports significant improvement in lower urinary tract symptoms on terazosin 5 mg daily. Recent testosterone and H/H levels reviewed with the patient today as noted and trended below. It appears patient remains with low T levels however patient reports he is not always compliant with testosterone therapy as prescribed. He reports initially after last office visit he had been compliant with testosterone therapy however then upon returning to pharmacy he was unable to obtain testosterone however is unsure as to why. Discussed importance of calling office and letting us know when this occurs. We discussed at length further treatment options of hypogonadism however he does feel he likes current testosterone replacement therapy. Discussed at length importance of compliance. Discussed obtaining labs in 3 months for further assessment evaluation. He otherwise denies any urinary issues or concerns at this time. He denies dysuria, hematuria, fever, and or chills. In office urinalysis results reviewed with the patient today. PVR 14 mLs Testosterone: 12/24 155, 02/23 124, 04/25 78, 06/25 495, 10/27 458, 09/27 125, 02/25 156, 09/28 381, 04/28 144, 08/28 142, 12/28 175, 04/29 154 Free testosterone: 02/25 30.4, 04/28 30.5, 08/28 32.1, 12/28 37.3, 04/29 26.6 H/H: 11/26 13.9/41.9, 05/29 14.6/45.8, 05/29 14.2/44.4, 08/28 12.9/39.5, 12/28 14.7/44.9, 02/27 13.6/40.4, 04/29 13.7/42.0 PSA: 02/24 2.2, 09/27 1.7, 04/28 3.0, 12/28 1.8 Discussed at length importance of managing diabetes for improvement in lower urinary tract symptoms as well as overall health and well-being. He otherwise offers no issues or concerns at this time. [facility] Medical History Chronic constipation Diabetes COVID-19 vaccine series started History of depression Ambulates with cane Eosinophilia Leukocytosis Rheumatoid arthritis Normocytic anemia Surgical History Acid reflux History of esophagogastroduodenoscopy (EGD) History of cataract extraction History of back surgery History of colonoscopy History of surgical removal of lesion Family History Mother Diabetes Father No problems noted. Social History Household Members: Spouse Housing: House Alcohol intake: never Patient Tobacco Use Status: Former Tobacco user e-Cigarette/Vaping Use: Never Used service: No Current occupational status: retired Current occupation: rt handed Review of Systems Const Reports as per [facility] Eyes Reports no additional complaints ENT Reports no additional complaints Card Reports as per [facility] Resp Reports no additional complaints GI Reports as per [facility] Reports as per [facility] Neuro Reports as per [facility] Psych Reports as per [facility] Endo Reports no additional complaints Physical Exam Const General: cooperative, healthy appearing, comfortable, no acute distress, well developed, alert and awake Orientation/consciousness: patient oriented x3 Limitations: no limitations HEENT Head: Yes normal to inspection, Yes normocephalic and Yes atraumatic Ears: hearing grossly normal bilaterally Eyes General: appearance normal, both eyes and all related structures Neck Neck: Yes normal visual inspection and Yes trachea midline Chest Chest palpation & inspection: normal inspection of the chest Resp Effort & Inspection: normal respiratory effort and able to speak in complete sentences Cardio Rate: regular rate GI Inspection: Yes normal to inspection General: Yes no CVA tenderness Back/Spine/Pelvis Back: no CVA tenderness Skin General skin exam: no rashes or lesions noted Neuro General: patient oriented x3 Extrem General: Yes normal to inspection Psych Appearance: grossly normal and well kempt Mental Status: mental status grossly normal Speech and movement: Normal speech and movement present and Clear speech present Affect: normal affect Attitude: cooperative Thought process: Normal thought process present Thought content: Normal thought content present Insight: Fair insight present (Psych) Judgement: Fair judgement present (Psych) Office Procedures Post Void Residual Post Residual Void Post Void Residual (PVR): 14 [id number] Void Residual by ultrasound Results AMB Urinalysis, Automated UA Leukoctes 0 Gab/uL Last Edit by Noelle Rosen on 05/15/24 09:48 UA Nitrite Last Edit by Noelle Rosen on 05/15/24 09:48 UA Urobilinogen 0.2 mg/dL Last Edit by Noelle Rosen on 05/15/24 09:48 UA Protein 30 mg/dL Last Edit by Noelle Rosen on 05/15/24 09:48 UA pH 6.0 Last Edit by Noelle Rosen on 05/15/24 09:48 UA Blood 10 Alf/uL Last Edit by Noelle Rosen on 05/15/24 09:48 UA Specific [place] 1.020 Last Edit by Noelle Rosen on 05/15/24 09:48 UA Ketone Negative Last Edit by Noelle Rosen on 05/15/24 09:48 UA Bilirubin 0 mg/dL Last Edit by Noelle Rosen on 05/15/24 09:48 UA Glucose 250 mg/dL Last Edit by Noelle Rosen on 05/15/24 09:48 Results Reviewed Results Reviewed: Laboratory Last Values Urine pH (Auto) 6.0 05/15/24 09:47 Specific [place] (Auto) 1.020 05/15/24 09:47 Urine Protein (Auto) 30 mg/dL 05/15/24 09:47 Glucose (UA)(Auto) 250 mg/dL 05/15/24 09:47 Urine Ketones (Auto) Negative 05/15/24 09:47 Urine Blood (Auto) 10 Alf/uL 05/15/24 09:47 Urine Bilirubin (Auto) 0 mg/dL 05/15/24 09:47 Urine Urobilinogen (Auto) 0.2 mg/dL 05/15/24 09:47 Leukocyte Esterase (Auto) 0 Gab/uL 05/15/24 09:47 Assessment & Plan Assessment & Plan (1) Hypogonadism in male: Code(s): E29.1 - Testicular hypofunction Category: Medical (2) Lower urinary tract symptoms: Code(s): R39.9 - Unspecified symptoms and signs involving the genitourinary system Category: Medical Plan In office urinalysis results reviewed with the patient today; as noted above. PVR 14mL. Discussed at length importance of managing diabetes for improvement in lower urinary tract symptoms as well as overall health and well-being. Discussed and stressed the importance of taking medication as prescribed. Recent testosterone and H/H results reviewed with the patient today; as noted above Continue 5 mg of terazosin as prescribed. Discussed at length further treatment options for hypogonadism. Patient reports significant improvement in lower urinary tract symptoms on 5 mg of terazosin daily and is happy with his current voiding parameters with this medication. Discussed compliance of testosterone as prescribed and will reassess testosterone levels in 3 months Patient denies any bothersome urinary issues or concerns at this time. Will obtain testosterone, testosterone free and total, CBC, and PSA in 3 months. Follow-up in 3 months with lab to be completed prior; or sooner with any issues, concerns, and or questions. Orders: Orders AMB Urinalysis Automated Today Z13.9 - Encounter for screening, unspecified Testosterone, Free/Total 3 Months E11.69 - Type 2 diabetes mellitus with other specified complication, N52.1 - Erectile dysfunction due to diseases classified elsewhere Urine Cytology Today Z13.9 - Encounter for screening, unspecified AMB Post Void Residual by ultrasound Today N40.0 - Benign prostatic hyperplasia without lower urinary tract symptoms Complete Blood Count no Diff 3 Months E29.1 - Testicular hypofunction Prostate Specific Antigen 3 Months E29.1 - Testicular hypofunction Medications: Refilled testosterone 3 pumps applied daily - 60.75 mg transdermal DAILY 150 grams 5RF 30 days E29.1 - Testicular hypofunction Patient Instructions: The patient had an opportunity to ask questions regarding the treatment plan. All questions were answered. Physical exam, labs, and imaging were discussed and reviewed in detail. As well as risks, benefits, and discussion of treatment choices. No major barriers to understanding were identified. The patient expressed understanding and agreement with the above treatment plan. The patient was made aware they should contact our office by phone for worsening of their current condition, the appearance of new symptoms, or with any questions or concerns. Compliance is encouraged with any medications and follow up testing that is ordered. It is a privilege to be allowed the opportunity to participate in? your urological care.? Again, if you have any questions or concerns If you have any questions or concerns please do not hesitate to contact me. The office is [phone]. This note is constructed using voice recognition software. While every effort has been made to ensure accuracy sample body builder errors may have been included. Yours sincerely, BETSY Fam Coding Level of Care Code Est Pt Level 3 (71888) Complex EM visit Add On G2211 Diagnoses Hypogonadism in male E29.1 Lower urinary tract symptoms R39.9 CPT Codes Post Residual Void - PVR CPT Code: 21715-Ncfk Void Residual by ultrasound ([id number])
== END 2024-05-15 10:06 | disposition home or self-care (01) ==
PROVIDERS: PCP Internal Medicine Geriatric Medicine; Visit Provider Nurse Practitioner Family
DX: E29.1 Testicular hypofunction (principal); R39.9 Unspecified symptoms and signs involving the genitourinary system; Z13.9 Encounter for screening, unspecified
CPT/HCPCS: 99213; G2211

== ENCOUNTER 2024-05-15 09:04 | Outpatient (REF) | payer OTHER, SELFPAY ==
[2024-05-15 16:33] LABS: Urine Cytology See Pathology rpt
== END 2024-05-15 09:05 | disposition home or self-care (01) ==
LOC: HO.LNP 09:04
PROVIDERS: PCP Internal Medicine Geriatric Medicine; Visit Provider Nurse Practitioner Family
DX: N40.0 Benign prostatic hyperplasia without lower urinary tract symptoms (principal); M1A.09X0 Idiopathic chronic gout, multiple sites, without tophus (tophi); G62.9 Polyneuropathy, unspecified; E29.1 Testicular hypofunction; R39.9 Unspecified symptoms and signs involving the genitourinary system; E11.69 Type 2 diabetes mellitus with other specified complication
CPT/HCPCS: 51798; 81003; 88112; 99212

== ENCOUNTER 2024-05-15 10:09 | Outpatient (AMB) | payer OTHER, SELFPAY ==
[2024-05-15 10:14] VITALS: BP 112/62; PULSE 58; O2SAT 95; BMI 28.6
--- NOTE | 2024-05-15 10:14 | MHC.OFFVIS ---
Vital Signs 05/15/24 10:14 Height 4 ft 11 in Weight 141 lb 12.116 oz BMI 28.6 BP 112/62 Blood Pressure Location Lt brachial Position Sitting Pulse 58 Pulse Source Pulse Oximeter Pulse Oximetry (%) 95 Oxygen Delivery Method Room Air Intake Visit Reasons: gout Intake Note: Patient is here to follow up on gout today. 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: Bertha Treviño Allergies No Known Allergies Allergy (Verified 05/15/24 10:18) Medication List - Last Reconciled 05/15/24 by Tam Burroughs MD allopurinol 100 mg PO DAILY amlodipine 10 mg PO DAILY aspirin 81 mg PO DAILY blood sugar diagnostic As directed buspirone 5 mg PO TID diclofenac sodium 1% 1 g topical BID docusate sodium (Colace) 200 mg (2 x 100 mg) PO BEDTIME famotidine 40 mg PO DAILY 90 days lisinopril 40 mg PO DAILY meclizine 25 mg PO TID PRN multivit-iron sulf-folic acid 15 mg iron- 400 mcg (Tab-A-Mark Multivitamin w-iron) 1 tab PO DAILY omeprazole 40 mg (2 x 20 mg) PO DAILY 30 days pravastatin 20 mg PO DAILY semaglutide (Ozempic) 4 mg subcut DAILY terazosin 5 mg PO BEDTIME 90 days testosterone 60.75 mg transdermal DAILY 30 days HPI Comments Details: This is a 78-year-old male with gout who presents for follow-up. He was last seen On allopurinol 100 mg daily. No gout flares for long period of time. He states that he gets bilateral hip pain that radiates down his legs most nights. He thinks it is related to his diabetes or his back surgery [facility] Medical History Chronic constipation Diabetes COVID-19 vaccine series started History of depression Ambulates with cane Eosinophilia Leukocytosis Rheumatoid arthritis Normocytic anemia Surgical History Acid reflux History of esophagogastroduodenoscopy (EGD) History of cataract extraction History of back surgery History of colonoscopy History of surgical removal of lesion Family History Mother Diabetes Father No problems noted. Social History Household Members: Spouse Housing: House Alcohol intake: never Patient Tobacco Use Status: Former Tobacco user e-Cigarette/Vaping Use: Never Used service: No Current occupational status: retired Current occupation: rt handed Review of Systems Musc Reports back pain, Reports numbness and Reports radiating pain into limb Neuro Reports numbness Physical Exam Vital Signs: Last Vital Signs Pulse 58 05/15/24 10:14 BP 112/62 05/15/24 10:14 Pulse Ox 95 05/15/24 10:14 Oxygen Delivery Method Room Air 05/15/24 10:14 BMI result Body Mass Index 28.6 Const General: cooperative, healthy appearing and comfortable Nutritional Appearance: average body habitus Orientation/consciousness: patient oriented x3 Limitations: no limitations HEENT Head: Yes normocephalic and Yes atraumatic Resp Effort & Inspection: normal respiratory effort and able to speak in complete sentences Neuro General: patient oriented x3 Extrem Other: osteoarthritic changes of both hands with no active synovitis No tophi noted Negative straight leg raise test bilaterally No trochanteric bursa area tenderness bilaterally Results AMB Urinalysis, Automated UA Leukoctes 0 Gab/uL Last Edit by Noelle Rosen on 05/15/24 09:48 UA Nitrite Last Edit by Noelle Rosen on 05/15/24 09:48 UA Urobilinogen 0.2 mg/dL Last Edit by Noelle Rosen on 05/15/24 09:48 UA Protein 30 mg/dL Last Edit by Noelle Rosen on 05/15/24 09:48 UA pH 6.0 Last Edit by Noelle Rosen on 05/15/24 09:48 UA Blood 10 Alf/uL Last Edit by Noelle Rosen on 05/15/24 09:48 UA Specific [place] 1.020 Last Edit by Noelle Rosen on 05/15/24 09:48 UA Ketone Negative Last Edit by Noelle Rosen on 05/15/24 09:48 UA Bilirubin 0 mg/dL Last Edit by Noelle Rosen on 05/15/24 09:48 UA Glucose 250 mg/dL Last Edit by Noelle Rosen on 05/15/24 09:48 Assessment & Plan Assessment & Plan (1) Gout: Code(s): M10.9 - Gout, unspecified Category: Medical Qualifiers: Gout site: multiple sites Gout etiology: idiopathic Chronicity: chronic Presence of tophus: without tophus Qualified Code(s): M1A.09X0 - Idiopathic chronic gout, multiple sites, without tophus (tophi) Plan: 78-year-old male with crystal proven gout returns for follow-up. He has had no gout flares on allopurinol 100 mg daily. Continue allopurinol 100 mg daily. Check uric acid level before next visit in 6 months (2) Neuropathy: Code(s): G62.9 - Polyneuropathy, unspecified Category: Medical Plan: Bilateral lower extremity. Follow-up with PCP Plan I spent 24 minutes reviewing patient's chart, evaluating patient, ordering diagnostic workup, counseling patient and documenting in the chart Orders: Orders Uric Acid 6 Months M1A.09X0 - Idiopathic chronic gout, multiple sites, without tophus (tophi) Basic Metabolic Panel 6 Months M1A.09X0 - Idiopathic chronic gout, multiple sites, without tophus (tophi) Medications: Refilled allopurinol 100 mg PO DAILY 90 tabs 1RF M10.9 - Gout, unspecified Coding Level of Care Code Est Pt Level 4 (76749) Diagnoses Idiopathic chronic gout of multiple sites without tophus M1A.09X0 Gout site: multiple sites Gout etiology: idiopathic Chronicity: chronic Presence of tophus: without tophus Neuropathy G62.9
== END 2024-05-15 10:43 | disposition home or self-care (01) ==
PROVIDERS: PCP Internal Medicine Geriatric Medicine; Visit Provider Student in an Organized Health Care Education/Training Program
DX: M1A.09X0 Idiopathic chronic gout, multiple sites, without tophus (tophi) (principal); G62.9 Polyneuropathy, unspecified
CPT/HCPCS: 99214

== ENCOUNTER 2024-06-28 09:41 | Outpatient (REF) | payer OTHER, SELFPAY ==
[2024-06-28 12:23] LABS: Alanine Aminotransferase 49 U/L (0-40); Alkaline Phosphatase 90 U/L (39-117); Anion Gap 10 (12-20); Aspartate Amino Transferase 40 U/L (5-37); Bilirubin Total 0.5 mg/dL (0.0-1.0); Blood Urea Nitrogen 17 mg/dL (9-16); Calcium 9.5 mg/dL (8.4-10.2); Carbon Dioxide 28 mmol/L (22-29); Chloride 106 mmol/L (96-108); Cholesterol 177 mg/dL (<200); Estimated Glomerular Filt Rate > 60; Glucose Random 166 mg/dL (60-115); HDL Cholesterol 38 mg/dL (>40); LDL Cholesterol Calculated 107 mg/dL (<100); Potassium 4.1 mmol/L (3.3-5.1); Sodium 140 mmol/L (135-145); Total Protein 7.2 g/dL (6.5-8.0); Triglycerides 161 mg/dL (<150)
== END 2024-06-28 09:42 | disposition home or self-care (01) ==
LOC: HO.HHCL 09:41
PROVIDERS: Visit Provider Internal Medicine Geriatric Medicine
DX: E11.69 Type 2 diabetes mellitus with other specified complication (principal); Z79.4 Long term (current) use of insulin
CPT/HCPCS: 36415; 80053; 80061

== ENCOUNTER 2024-08-18 08:16 | Outpatient (REF) | payer OTHER, SELFPAY ==
[2024-08-18 09:05] LABS: Hematocrit 40.8 % (42.0-52.0); Hemoglobin 13.3 g/dl (14.0-18.0); Mean Corpuscular HGB Conc 32.6 g/dl (31.0-36.0); Mean Corpuscular Hemoglobin 28.5 pg (27.0-33.0); Mean Corpuscular Volume 87.4 fL (80.0-98.0); Mean Platelet Volume 9.8 fL (9.4-12.4); Platelet Count 297 X10*3/uL (160-400); Red Blood Count 4.67 X10*6/uL (4.60-5.80); Red Cell Distribution Width 13.9 % (11.0-16.0); White Blood Count 11.2 X10*3/uL (4.8-10.8)
[2024-08-18 09:34] LABS: Albumin Level 4.3 g/dL (3.5-5.0); Alkaline Phosphatase 107 U/L (39-117); Anion Gap 11 (12-20); Aspartate Amino Transferase 27 U/L (5-37); Bilirubin Total 0.4 mg/dL (0.0-1.0); Blood Urea Nitrogen 22 mg/dL (9-16); Calcium 9.5 mg/dL (8.4-10.2); Carbon Dioxide 27 mmol/L (22-29); Chloride 108 mmol/L (96-108); Estimated Glomerular Filt Rate 56; Glucose Random 170 mg/dL (60-115); Potassium 4.2 mmol/L (3.3-5.1); Sodium 142 mmol/L (135-145); Total Protein 7.9 g/dL (6.5-8.0)
[2024-08-18 09:44] LABS: Prostate Specific Antigen 1.54 ng/mL (<0.05-4.0)
[2024-08-18 09:46] LABS: Alanine Aminotransferase 38 U/L (0-40)
[2024-08-24 20:18] LABS: Testosterone, Free 29.3 pg/mL (30.0-135.0); Testosterone, Total 139 ng/dL (250-1100)
== END 2024-08-18 08:17 | disposition home or self-care (01) ==
LOC: HO.LAB 08:16
PROVIDERS: Student in an Organized Health Care Education/Training Program; PCP Internal Medicine Geriatric Medicine; Visit Provider Nurse Practitioner Family
DX: E11.69 Type 2 diabetes mellitus with other specified complication (principal); N52.1 Erectile dysfunction due to diseases classified elsewhere; E29.1 Testicular hypofunction; M10.9 Gout, unspecified; Z12.5 Encounter for screening for malignant neoplasm of prostate
CPT/HCPCS: 36415; 80053; 84153; 84402; 84403; 84550; 85027

== ENCOUNTER 2024-09-05 09:30 | Outpatient (REF) | payer OTHER, SELFPAY | END 2024-09-05 09:31 | disposition home or self-care (01) | LOC: HO.LNP 09:30 | PROVIDERS: Visit Provider Surgery | DX: L72.0 Epidermal cyst (principal); C44.321 Squamous cell carcinoma of skin of nose | CPT/HCPCS: 88304; 88305; 88341; 88342 ==

== ENCOUNTER 2024-09-05 09:47 | Outpatient (AMB) | payer OTHER, SELFPAY ==
[2024-09-05 09:51] VITALS: BP 140/63; PULSE 77; BMI 28.9
--- NOTE | 2024-09-05 09:51 | A.OFFVIS_ITS ---
Vital Signs 09/05/24 09:51 Height 4 ft 11 in Weight 143 lb BMI 28.9 BP 140/63 H Blood Pressure Location Rt brachial Position Sitting Pulse 77 Intake Visit Reasons: Sebaceous cyst left buttock Intake Note: Patient referred by pcp Dr. Lund for cyst on Lt buttock. Present for 1yr Patient c/o: denies pain, bleeding. Patient 2nd concern: lesion on lt nasal sidewall. Present 1-2yrs. Denies bleeding. No hx of skin ca. 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 Fisheries Professor Required: Yes 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 Fisheries Professor Name: Celine SIMON Accompanied by: Self / Same As Patient Allergies No Known Allergies Allergy (Verified 09/05/24 09:54) Medication List - Last Reconciled 09/05/24 by Carlton Carmen MD allopurinol 100 mg PO QAM amlodipine 10 mg PO DAILY aspirin 81 mg PO DAILY blood sugar diagnostic As directed buspirone 5 mg PO TID docusate sodium (Colace) 200 mg (2 x 100 mg) PO BEDTIME famotidine 40 mg PO QAM insulin degludec (Tresiba FlexTouch U-100 insulin) 14 units subcut BEDTIME lisinopril 40 mg PO DAILY meclizine 25 mg PO TID PRN multivit-iron sulf-folic acid 15 mg iron- 400 mcg (Tab-A-Mark Multivitamin w- iron) 1 tab PO DAILY omeprazole 40 mg (2 x 20 mg) PO DAILY 30 days pravastatin 20 mg PO DAILY semaglutide (Ozempic) 4 mg subcut DAILY terazosin 5 mg PO BEDTIME 90 days testosterone 60.75 mg transdermal DAILY 30 days HPI Comments Details: Patient whom I know from the past who presents here with 1. A skin lesions involving left side of his nose 2. A left buttock sebaceous cyst. Both are increasing in size, become more symptomatic. He would like to have them removed. Chart was reviewed and patient evaluated. [facility]LY [facility], [facility] Medical History Chronic constipation Diabetes COVID-19 vaccine series started History of depression Ambulates with cane Eosinophilia Leukocytosis Rheumatoid arthritis Normocytic anemia Surgical History Acid reflux History of esophagogastroduodenoscopy (EGD) History of cataract extraction History of back surgery History of colonoscopy History of surgical removal of lesion Family History Mother Diabetes Father No problems noted. Social History Household Members: Spouse Housing: House Alcohol intake: never Patient Tobacco Use Status: Former Tobacco user e-Cigarette/Vaping Use: Never Used service: No Current occupational status: retired Current occupation: rt handed Physical Exam Vital Signs: Last Vital Signs Pulse 77 09/05/24 09:51 BP 140/63 H 09/05/24 09:51 BMI result Body Mass Index 28.9 HEENT Other: Patient has a 1 x 1 cm seborrheic keratotic lesion involving left aspect of his proximal nose. No other suspicious lesions demonstrated. Back/Spine/Pelvis Other: Patient has a roughly 4 x 3 cm left mid buttock sebaceous cyst Office Procedures Excision Details: Risks, benefits, alternatives of excision of left nose lesion and left buttock sebaceous cyst were reviewed with the patient and included but not limited to bleeding, infection, recurrence, numbness, pain, scarring the patient wished to proceed. All questions answered. Consent signed. After appropriate positioning, patient underwent % lidocaine and Betadine prep of the left nose lesion and underwent a tangential shave excision. Specimen sent to pathology. Wound base cauterized with silver nitrate followed by bacitracin and sterile dressing. [id number] face/ear/eyelid/nose/lip/mucous membrane 0.6cm-1cm Details: After appropriate positioning, patient underwent 1 % lidocaine and Betadine prep of the left mid buttock where a transverse by elliptical incision of the large sebaceous cyst with dimensions as described in the original H and P was uneventfully performed. Specimen sent to pathology. Wound was irrigated, secured hemostasis, and closed using running subcuticular 3-0 Vicryl suture followed by Steri-Strips and sterile dressings. Patient tolerated both procedures well. 37486-lhmlh/arms/legs 3.1-4cm Procedure code (CPT) selection complete Office Meds lidocaine 1 %-epinephrine 1:100,000 injection solution Performing Provider: Carlton Carmen MD Performing Location: [facility] Administered by: Carlton Carmen MD on 09/05/24 10:58 Dose Route Admin Location Dispensed Lot Number Expiration Date NDC Label Folder 20 mL Infiltration 20 mL Assessment & Plan Assessment & Plan (1) Seborrheic keratosis: Code(s): L82.1 - Other seborrheic keratosis Category: Surgical Plan: Patient was been given local instructions including avoiding strenuous activities, shower in 2 days removing only outside dressing to buttock insert and leaving Steri-Strips intact, bacitracin dressings to the nose lesion q.day, Tylenol or Motrin for pain, and patient will see me as directed or p.r.n.. All questions answered. (2) Sebaceous cyst: Code(s): L72.3 - Sebaceous cyst Category: Surgical Plan: See above Orders: Orders AMB Excision Today L82.1 - Other seborrheic keratosis Medications: New lidocaine-epinephrine 1 %-1:100,000 20 mL Infiltration ONCE 30 mL 0RF L82.1 - Other seborrheic keratosis Coding Level of Care Code Est Pt Level 5 (17617) Diagnoses Seborrheic keratosis L82.1 Sebaceous cyst L72.3 CPT Codes Trunk/Arms/Legs - CPT: 98987-xoxjl/arms/legs 3.1-4cm ([id number]) Face/Ear/Eyelid/Nose/Lip/Mucous Membrane - CPT: 08199-Kzynuntf face/ear/eyelid/nose/lip/mucous membrane 0.6cm-1cm ([id number])
== END 2024-09-05 10:29 | disposition home or self-care (01) ==
PROVIDERS: PCP Internal Medicine Geriatric Medicine; Visit Provider Surgery
DX: L82.1 Other seborrheic keratosis (principal); L72.3 Sebaceous cyst; C44.301 Unspecified malignant neoplasm of skin of nose
CPT/HCPCS: 11102; 11404; 99214

== ENCOUNTER → 2024-09-05 09:47 | Outpatient (BNVA) | payer OTHER, SELFPAY | PROVIDERS: PCP Internal Medicine Geriatric Medicine; Visit Provider Surgery | DX: L82.1 Other seborrheic keratosis (principal); L72.3 Sebaceous cyst | CPT/HCPCS: 11102; 11404; 88304; 88305; 88341; 88342; 99212 ==

== ENCOUNTER 2024-09-20 09:10 | Outpatient (AMB) | payer OTHER, SELFPAY ==
--- NOTE | 2024-09-20 09:13 | MHC.OFFVIS ---
Intake Visit Reasons: s/p excision Sebaceous cyst left buttock Intake Note: Patient here s/p exc on A. Lt buttock B. Lt nasal sidewall. Reports incisions healing well. Patient c/o: no concerns. Gas Mask Assembler Required: Yes Gas Mask Assembler Name: Celine GillisJESSICAEddie Accompanied by: Self / Same As Patient Allergies No Known Allergies Allergy (Verified 09/20/24 09:16) HPI Comments Details: Patient was wants for follow-up status post left nose and buttock lesion excisions. 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 The buttock lesion was benign. Patient also has an umbilical hernia. He is having no incisional issues or complaints. Hernias been longstanding. He is considering repair. He is otherwise tolerating a diet. Having regular bowel habits. No other GI issues or complaints. FORMERLY [facility] Medical History Chronic constipation Diabetes COVID-19 vaccine series started History of depression Ambulates with cane Eosinophilia Leukocytosis Rheumatoid arthritis Normocytic anemia Surgical History Acid reflux History of esophagogastroduodenoscopy (EGD) History of cataract extraction History of back surgery History of colonoscopy History of surgical removal of lesion Family History Mother Diabetes Father No problems noted. Social History Household Members: Spouse Housing: House Alcohol intake: never Patient Tobacco Use Status: Former Tobacco user e-Cigarette/Vaping Use: Never Used service: No Current occupational status: retired Current occupation: rt handed Physical Exam Neck Other: Patient has a well healed left mid face/nose shave biopsy area. This measures roughly 2 x 1 cm. Chest Other: Chest breath sounds bilaterally, HS 1 in 2 GI Other: Abdomen patient was examined both supine and standing with Valsalva. Bilateral groin exam negative. Genitalia within normal limits. Abdomen corpulent. Patient was a roughly 2 cm reducible umbilical hernia. Assessment & Plan Assessment & Plan (1) Umbilical hernia: Code(s): K42.9 - Umbilical hernia without obstruction or gangrene Category: Surgical (2) Skin cancer of nose: Code(s): C44.301 - Unspecified malignant neoplasm of skin of nose Category: Surgical Plan 1. Recommendation is for excision with clear margins of the left mid face/nose lesion. Patient agrees. Risks, benefits, alternatives of the procedure reviewed with the patient included but not limited to bleeding, infection, recurrence, numbness, pain, scarring the patient wished to proceed. 2. Umbilical hernia repair was reviewed with the patient and the risks, benefits, and alternatives discussed were bleeding, infection, recurrence, numbness, pain, scarring, bowel injury and the patient wishes to proceed with this as well. We will do so at the sameOR sitting. All questions answered. Arrangements will be made for this. Coding Level of Care Code Est Pt Level 5 (00746) Global (98570) Diagnoses Umbilical hernia K42.9 Skin cancer of nose C44.301
== END 2024-09-20 09:28 | disposition home or self-care (01) ==
PROVIDERS: PCP Internal Medicine Geriatric Medicine; Visit Provider Surgery
DX: K42.9 Umbilical hernia without obstruction or gangrene (principal); C44.301 Unspecified malignant neoplasm of skin of nose
CPT/HCPCS: 99024; 99214

== ENCOUNTER → 2024-09-20 09:10 | Outpatient (BNVA) | payer OTHER, SELFPAY | PROVIDERS: PCP Internal Medicine Geriatric Medicine; Visit Provider Surgery | DX: E29.1 Testicular hypofunction (principal); R39.9 Unspecified symptoms and signs involving the genitourinary system; N40.0 Benign prostatic hyperplasia without lower urinary tract symptoms; K42.9 Umbilical hernia without obstruction or gangrene; C44.301 Unspecified malignant neoplasm of skin of nose; Z09 Encounter for follow-up examination after completed treatment for conditions other than malignant neoplasm; Z98.890 Other specified postprocedural states; Z79.899 Other long term (current) drug therapy | CPT/HCPCS: 51798; 81003; 99212 ==

== ENCOUNTER 2024-09-20 09:35 | Outpatient (AMB) | payer OTHER, SELFPAY ==
--- NOTE | 2024-09-20 10:28 | MHC.OFFVIS ---
Intake Visit Reasons: follow up/labs(set) Intake Note: Patient is Present for Follow Up PSA/Testosterone Urology Medication: Terazosin, Testosterone Antibiotic Allergies: None Blood Thinners: None Last PVR:14ML Todays PVR:10ml Vehicle And Equipment Cleaner Required: Yes Vehicle And Equipment Cleaner Language: Executive Vice President Of Sales Services: Vehicle And Equipment Cleaner Present Vehicle And Equipment Cleaner Name: Stevie [id number] Accompanied by: Self / Same As Patient Allergies No Known Allergies Allergy (Verified 09/20/24 11:12) Medication List - Last Reconciled 09/20/24 by SWETA Fam- allopurinol 100 mg PO QAM amlodipine 10 mg PO DAILY amlodipine 5 mg PO QAM aspirin 81 mg PO DAILY blood sugar diagnostic As directed buspirone 5 mg PO TID docusate sodium (Colace) 200 mg (2 x 100 mg) PO BEDTIME empagliflozin (Jardiance) 10 mg PO DAILY famotidine 40 mg PO QAM flash glucose sensor (FreeStyle Grace 2 Sensor kit) As directed insulin degludec (Tresiba FlexTouch U-100 insulin) 14 units subcut BEDTIME lisinopril 40 mg PO DAILY meclizine 25 mg PO TID PRN multivit-iron sulf-folic acid 15 mg iron- 400 mcg (Tab-A-Mark Multivitamin w-iron) 1 tab PO DAILY omeprazole 40 mg (2 x 20 mg) PO DAILY 30 days pravastatin 20 mg PO DAILY semaglutide (Ozempic) 0.5 mg subcut QWEEK terazosin 5 mg PO BEDTIME 90 days testosterone 60.75 mg transdermal DAILY 30 days HPI Comments Details: Francisco is a pleasant 78 year old [place]an speaking male patient of Dr. Lund. He has a past medical history of acid reflux, chronic constipation, diabetes, depression, normocytic anemia, and rheumatoid arthritis. He presents to the office today for follow-up regarding his hypogonadism and benign prostatic hyperplasia. He reports to be doing and feeling well. When asked he reports to be happy with current voiding parameters on 5 mg of terazosin. Recent testosterone, PSA and H/H levels reviewed with the patient today as noted and trended below. It appears patient remains with low T levels however patient reports he is not always compliant with testosterone therapy as prescribed. He reports initially after last office visit he had been compliant with testosterone therapy however then upon returning to pharmacy he was unable to obtain testosterone however is unsure as to why. Discussed importance of calling office and letting us know when this occurs. We discussed during last office visit patient stated same thing. He does continue to verbalized understanding. We discussed further treatment options of hypogonadism however patient wishes to continue with gel replacement. Discussed at length importance of compliance. Discussed obtaining labs in 3 months for further assessment evaluation. He otherwise denies any urinary issues or concerns at this time. He denies dysuria, hematuria, fever, and or chills. In office urinalysis results reviewed with the patient today. PVR 10 mLs Testosterone: 12/24 155, 02/23 124, 04/25 78, 06/25 495, 10/27 458, 09/27 125, 02/25 156, 09/28 381, 04/28 144, 08/28 142, 12/28 175, 04/29 154, 08/29 139 Free testosterone: 02/25 30.4, 04/28 30.5, 08/28 32.1, 12/28 37.3, 04/29 26.6, 08/29 29.3 H/H: 11/26 13.9/41.9, 05/29 14.6/45.8, 05/29 14.2/44.4, 08/28 12.9/39.5, 12/28 14.7/44.9, 02/27 13.6/40.4, 04/29 13.7/42.0, 08/29 13.3/40.8 PSA: 02/24 2.2, 09/27 1.7, 04/28 3.0, 12/28 1.8, 08/29 1.5 Discussed at length importance of managing diabetes for improvement in lower urinary tract symptoms as well as overall health and well-being. He otherwise offers no issues or concerns at this time. [facility] Medical History Chronic constipation Diabetes COVID-19 vaccine series started History of depression Ambulates with cane Eosinophilia Leukocytosis Rheumatoid arthritis Normocytic anemia Surgical History Acid reflux History of esophagogastroduodenoscopy (EGD) History of cataract extraction History of back surgery History of colonoscopy History of surgical removal of lesion Family History Mother Diabetes Father No problems noted. Social History Household Members: Spouse Housing: House Alcohol intake: never Patient Tobacco Use Status: Former Tobacco user e-Cigarette/Vaping Use: Never Used service: No Current occupational status: retired Current occupation: rt handed Review of Systems Const Reports as per [facility] Eyes Reports no additional complaints ENT Reports no additional complaints Card Reports as per HPI Resp Reports no additional complaints GI Reports as per HPI Reports as per HPI Neuro Reports as per HPI Psych Reports as per HPI Endo Reports no additional complaints Physical Exam Const General: cooperative, healthy appearing, comfortable, no acute distress, well developed, alert and awake Orientation/consciousness: patient oriented x3 Limitations: no limitations HEENT Head: Yes normal to inspection, Yes normocephalic and Yes atraumatic Ears: hearing grossly normal bilaterally Eyes General: appearance normal, both eyes and all related structures Neck Neck: Yes normal visual inspection and Yes trachea midline Chest Chest palpation & inspection: normal inspection of the chest Resp Effort & Inspection: normal respiratory effort and able to speak in complete sentences Cardio Rate: regular rate GI Inspection: Yes normal to inspection General: Yes no CVA tenderness Back/Spine/Pelvis Back: no CVA tenderness Skin General skin exam: no rashes or lesions noted Neuro General: patient oriented x3 Extrem General: Yes normal to inspection Psych Appearance: grossly normal and well kempt Mental Status: mental status grossly normal Speech and movement: Normal speech and movement present and Clear speech present Affect: normal affect Attitude: cooperative Thought process: Normal thought process present Thought content: Normal thought content present Insight: Fair insight present (Psych) Judgement: Fair judgement present (Psych) Office Procedures Post Void Residual Post Residual Void Post Void Residual (PVR): 10 [id number] Void Residual by ultrasound Results AMB Urinalysis, Automated UA Leukoctes 0 Gab/uL Last Edit by ALFRED Dunham on 09/20/24 10:44 UA Nitrite Negative Last Edit by ALFRED Dunham on 09/20/24 10:44 UA Urobilinogen 0.2 mg/dL Last Edit by ALFRED Dunham on 09/20/24 10:44 UA Protein 30 mg/dL Last Edit by Kandy Blackmon A on 09/20/24 10:44 UA pH 5.5 Last Edit by Kandy Blackmon, A on 09/20/24 10:44 UA Blood 0 Alf/uL Last Edit by Kandy Blackmon, A on 09/20/24 10:44 UA Specific [place] 1.015 Last Edit by Kandy Blackmon, A on 09/20/24 10:44 UA Ketone Negative Last Edit by Kandy Blackmon, A on 09/20/24 10:44 UA Bilirubin 0 mg/dL Last Edit by Kandy Blackmon A on 09/20/24 10:44 UA Glucose 1000 mg/dL Last Edit by Kandy Blackmon A on 09/20/24 10:44 Results Reviewed Results Reviewed: Laboratory Last Values Urine pH (Auto) 5.5 09/20/24 10:38 Specific [place] (Auto) 1.015 09/20/24 10:38 Urine Protein (Auto) 30 mg/dL 09/20/24 10:38 Glucose (UA)(Auto) 1000 mg/dL 09/20/24 10:38 Urine Ketones (Auto) Negative 09/20/24 10:38 Urine Blood (Auto) 0 Alf/uL 09/20/24 10:38 Urine Nitrite (Auto) Negative 09/20/24 10:38 Urine Bilirubin (Auto) 0 mg/dL 09/20/24 10:38 Urine Urobilinogen (Auto) 0.2 mg/dL 09/20/24 10:38 Leukocyte Esterase (Auto) 0 Gab/uL 09/20/24 10:38 Assessment & Plan Assessment & Plan (1) Hypogonadism in male: Code(s): E29.1 - Testicular hypofunction Category: Medical (2) Lower urinary tract symptoms: Code(s): R39.9 - Unspecified symptoms and signs involving the genitourinary system Category: Medical Plan In office urinalysis results reviewed with the patient today; as noted above. PVR 10mL. Discussed at length importance of managing diabetes for improvement in lower urinary tract symptoms as well as overall health and well-being. Discussed and stressed the importance of taking medication as prescribed. Recent testosterone, PSA and H/H results reviewed with the patient today; as noted above Continue 5 mg of terazosin as prescribed. Discussed at length further treatment options for hypogonadism. Patient reports significant improvement in lower urinary tract symptoms on 5 mg of terazosin daily and is happy with his current voiding parameters with this medication. Discussed compliance of testosterone as prescribed and will reassess testosterone levels in 3 months Patient denies any bothersome urinary issues or concerns at this time. Will obtain testosterone, testosterone free and total, CBC, and PSA in 3 months. Follow-up in 3 months with lab to be completed prior; or sooner with any issues, concerns, and or questions. Orders: Orders Prostate Specific Antigen 3 Months E29.1 - Testicular hypofunction Testosterone, Free/Total 3 Months E29.1 - Testicular hypofunction AMB Post Void Residual by ultrasound Today N40.0 - Benign prostatic hyperplasia without lower urinary tract symptoms AMB Urinalysis Automated Today Z13.9 - Encounter for screening, unspecified Complete Blood Count no Diff 3 Months E29.1 - Testicular hypofunction Medications: Refilled testosterone 3 pumps applied daily - 60.75 mg transdermal DAILY 150 grams 5RF 30 days E29.1 - Testicular hypofunction Patient Instructions: The patient had an opportunity to ask questions regarding the treatment plan. All questions were answered. Physical exam, labs, and imaging were discussed and reviewed in detail. As well as risks, benefits, and discussion of treatment choices. No major barriers to understanding were identified. The patient expressed understanding and agreement with the above treatment plan. The patient was made aware they should contact our office by phone for worsening of their current condition, the appearance of new symptoms, or with any questions or concerns. Compliance is encouraged with any medications and follow up testing that is ordered. It is a privilege to be allowed the opportunity to participate in? your urological care.? Again, if you have any questions or concerns If you have any questions or concerns please do not hesitate to contact me. The office is [phone]. This note is constructed using voice recognition software. While every effort has been made to ensure accuracy embedded case manager errors may have been included. Yours sincerely, BETSY Fam Coding Level of Care Code Est Pt Level 3 (03369) Diagnoses Hypogonadism in male E29.1 Lower urinary tract symptoms R39.9 CPT Codes Post Residual Void - PVR CPT Code: 66806-Wikj Void Residual by ultrasound ([id number])
== END 2024-09-20 11:14 | disposition home or self-care (01) ==
PROVIDERS: PCP Internal Medicine Geriatric Medicine; Visit Provider Nurse Practitioner Family
DX: E29.1 Testicular hypofunction (principal); R39.9 Unspecified symptoms and signs involving the genitourinary system; Z13.9 Encounter for screening, unspecified
CPT/HCPCS: 99213

== ENCOUNTER 2024-09-27 13:46 | Outpatient (AMB) | payer OTHER, SELFPAY ==
--- NOTE | 2024-09-27 13:48 | A.OFFVIS_ITS ---
Vital Signs 09/27/24 13:52 Height 4 ft 11 in Weight 138 lb 14.259 oz BMI 28.0 BP 136/62 Blood Pressure Location Lt brachial Position Sitting Pulse 64 Intake Visit Reasons: GERD/Laura Pt Intake Note: Francisco presents in the office as a Laura patient f/u for GERD. CC: He seems a little confused. He states that he has some concerns here and there. He states that he has some concerns with acid in his stomach. He was taking pepto bismol for his gerd and acid and it did not work for him. He states he had gas noises in his stomach. Legend Maker Required: Yes Legend Maker Services: Legend Maker Present Legend Maker Name: DAVID Sommers Allergies No Known Allergies Allergy (Verified 09/27/24 13:54) HPI Comments Details: 78 y.o M with PMH of gout, SCC of nose, who is here for GERD. Seen with the help of live prefitter Vianney. Pt reports daily sx of pyrosis and abd discomfort america at night time. This is america when he forgets to take omeprazole. No N/V. No dysphagia. No change in bowel habits. No unintentional weight loss reported. Last EGD 2020 with normal esophageal mucosa on endoscopic appearance and biopsies. [facility] Medical History Chronic constipation Diabetes COVID-19 vaccine series started History of depression Ambulates with cane Eosinophilia Leukocytosis Rheumatoid arthritis Normocytic anemia Surgical History Acid reflux History of esophagogastroduodenoscopy (EGD) History of cataract extraction History of back surgery History of colonoscopy History of surgical removal of lesion Family History Mother Diabetes Father No problems noted. Social History Household Members: Spouse Housing: House Alcohol intake: never Patient Tobacco Use Status: Former Tobacco user e-Cigarette/Vaping Use: Never Used service: No Current occupational status: retired Current occupation: rt handed Review of Systems Const All systems reviewed & are unremarkable except as noted in HPI and below Physical Exam Vital Signs: Last Vital Signs Pulse 64 09/27/24 13:52 BP 136/62 09/27/24 13:52 BMI result Body Mass Index 28.0 No apparent distress Nonicteric Abdomen soft, nondistended Alert and oriented x3, normal gait Assessment & Plan Assessment & Plan (1) Pyrosis: Code(s): R12 - Heartburn Category: Medical (2) Long-term current use of proton pump inhibitor therapy: Code(s): Z79.899 - Other custodial (current) drug therapy Category: Medical Plan Symptoms consistent with rebound heartburn secondary to sudden interruption and PPI therapy. To recall, has been taking omeprazole 40 mg daily for a few years now. Previous workup without any significant evidence to suggest reflux. Differentials could include infectious esophagitis, dysmotility, NERD, dyspepsia. Plan: -educated the patient that long-term PPI can predispose to rebound heartburn if it is discontinued abruptly. -recommend slow tapering off, 20 mg omeprazole prescribed. -this is to be reduced to 20 mg every other day after 4 weeks -in the meantime, we will also get a barium swallow to rule out dysmotility/esophagitis. Follow-up 3 months Orders: Orders [place] barium swallow Today K21.9 - Gastro-esophageal reflux disease without esophagitis Medications: New omeprazole 20 mg PO DAILY 90 caps 0RF Discontinued omeprazole Discontinued Reason: Doctor's Order 40 mg (2 x 20 mg) PO DAILY 30 days 60 caps 5RF Coding Level of Care Code Est Pt Level 4 (62635) Diagnoses Pyrosis R12 Long-term current use of proton pump inhibitor therapy Z79.899
[2024-09-27 13:52] VITALS: BP 136/62; PULSE 64; BMI 28.0
--- OUTSIDE RECORDS SUMMARY | 2024-09-27 15:57 | XMS_ITS | Encounter Summary ---
Author Organization [employer] Address [address] [facility] [address] [place] [address] Care Team Providers Care Box Office Clerk Name Role Phone Name, Rodri WINN Primary Care Provider [phone] Ana Pavon PharmD Unavailable [phone] Reason for Visit * Reason Comments Med Refill Encounter Details Date Type Department Care Team ([facility] st Contact Info) Description 09/11/2024 Refill [facility] [address] [place], [place] [phone] Name, MD Rodri [address] [place] [address] Social History Tobacco Use Types Packs/Day Years Used Date Smoking Tobacco: Former Cigarettes Passive Smoke Exposure: Past Smokeless Tobacco: Never Alcohol Use Standard Drinks/Week Comments Never 0 (1 standard drink = 0.6 oz pur e alcohol) Depression Answer Date Recorded Patient Health Questionnaire-9 Score 0 10/15/2023 Patient Health Questionnaire-9 Score 0 10/15/2023 Last PHQ-9: Questionnaire Data Not on file 0 10/15/2023 Housing Stability Answer Date Recorded What is your housing situation today? I have merrill batres 10/15/[address] you li ve. Do you have problems with any of the following? None of the above 10/15/2023 Food Insecurity Answer Date Recorded Within the past 12 months, y ou worried that your food would run out before you got money to buy more: Never True 10/15/2023 Within the past 12 months,th e food you bought just didn't last and you didn't have enough money to get more: Never True 05/2024 Transportation Answer Date Recorded In the past 12 months, has l ack of transportation kept you from medical appts, meetings, work or from getting things needed for daily living? No 10/15/2023 Utilities Answer Date Recorded In the past 12 months, has t he electric, gas, oil or water company threatened to shut off services in your home? No 10/15/2023 Depression Answer Date Recorded Patient Health Questionnaire-2 Score 0 10/15/2023 Sex and Gender Information Value Date Recorded Sex Assigned at Male 07/06/2022 10:18 AM EDT Legal Sex Male 10:18 AM EDT Gender Identity Male 07/06/2022 10:18 AM EDT Sexual Orientation Choose not to disclose 2021 10:18 AM EDT documented as of this encounter Plan of Treatment Upcoming Encounters Date Type Department Care Team (Late st Contact Info) Description 10/05/2024 10:30 AM EST Medication Management [facility] [address] [place] [id number] Ana Pavon PharmNeftali [address] [place] [phone] 10/19/2024 10:30 AM EST Nutrition [facility] [address] [place], [place] [phone] [address] [place] [address] 11/30/2024 10:30 AM EDT Office Visit [facility] [address] [place] [phone] Name, MD Rodri [address] [place] [phone] documented as of this encounter Goals Goal Patient Goal Type Associated Problems Recent Progress Patient-Stated? Author Hemoglobin A1c < 7.5 Result Component 8.9( 10:35 AM EST) No Ana Pavon, PharmD Record your blood sugar as directed Result Component No Ana Pavon PharmD Note: Use CGM, ensuring sensor is scanned at least once every 8 hours to capture 24H data. Check BG manually, as directed. documented as of this encounter Visit Diagnoses Not on filedocumented in this encounter Additional Health Concerns Assessment Noted Time PHQ-9 Depression Total Score: 0 10/15/19 10:57 AM EST documented as of this encounter Care Teams Box Office Clerk Relationship Specialty Start Date End Date Name, MD Rodri [address] [place] [address] PCP - General Family Medicine 09/24/15 Ana Pavon PharmD [address] [place] [address] Pharmacist Internal Medicine 04/28/23 [facility] 09/01/24 documented as of this encounter
--- OUTSIDE RECORDS SUMMARY | 2024-09-27 15:57 | XMS_ITS | Encounter Summary ---
Author Organization [employer] Address [address] [facility] [address] [place] [address] Care Team Providers Care Battery Assembler Name Role Phone Name, Rodri WINN Primary Care Provider [phone] Ana Pavon PharmD Unavailable [phone] Reason for Visit * Reason Comments Med Refill Encounter Details Date Type Department Care Team ([facility] st Contact Info) Description 06/23/[address] [facility] [address] [place], [place] [phone] Name, MD Rodri [address] [place] [address] Social History Tobacco Use Types Packs/Day Years [...] Description 10/05/2024 10:30 AM EST Medication Management [facility] [address] [place] [phone] Ana Pavon PharmNeftali [address] [place] [phone] 10/19/2024 10:30 AM EST Nutrition [facility] [address] [place], [place] [phone] [address] [place] [address] 11/30/2024 10:30 AM EDT Office Visit [facility] [address] [place] [phone] Name, MD Rodri [address] [place] [phone] documented as of this encounter Goals Goal [...] documented as of this encounter Care Teams Battery Assembler Relationship Specialty Start Date End Date Name, MD Rodri [address] [place] [address] PCP - General Family Medicine 09/24/15 Ana Pavon PharmD [address] [place] [address] Pharmacist Internal Medicine 04/28/23 [facility] 09/01/24 documented as of this encounter
--- OUTSIDE RECORDS SUMMARY | 2024-09-27 15:57 | XMS_ITS | Clinical Summary ---
Author Organization [employer] Address [address] [place] [address] Care Team Providers Care Warehouse Attendant Name Role Phone Name, Rodri WINN Primary Care Provider Ana Pavon PharmD Unavailable Allergies No known active allergies Medications docusate sodium (Colace) 100 MG capsule Take 1 capsule by mouth every 12 (twelve) hours. 020 Active sildenafil (Viagra) 50 MG tablet Take 1 tablet by mouth at bed time. 019 Active allopurinol (Zyloprim) 100 MG tablet Take 100 mg by mouth in the morning. 022 Active famotidine (Pepcid) 40 MG tablet Take 40 mg by mouth in the morning. 022 Active polyethylene glycol, PEG, 3350 (Glycolax) 17 GM/SCOOP powder 022 Active terazosin (Hytrin) 5 MG capsule 023 Active Continuous Blood Gluc Circular Saw Filer (FreeStyle Grace 2 Dillon) deviceIndicatio ns:Poorly controlled diabetes mellitus (CMS/HCC) Use to scan sensor at least every 8 hours, as directed, for CGM 1 each 023 Active aspirin 81 MG EC tabletIndicatio ns:Poorly controlled diabetes mellitus (CMS/HCC) Take 1 tablet (81 mg) by mouth in the morning. 90 tablet 3 024 Active insulin pen needle 32G x 4 mm miscIndications :Poorly controlled diabetes mellitus (CMS/HCC) Use to inject insulin 1 time daily 100 each 3 024 Active pravastatin (Pravachol) 20 MG tabletIndicatio ns:Type 2 diabetes mellitus with other specified complication, without long-term current use of insulin ([facility]) Take 1 tablet (20 mg) by mouth Once daily. 90 tablet 3 Active glucose blood (FreeStyle Precision Cosme Test) test stripIndication s:Type 2 diabetes mellitus with other specified complication, without long-term current use of insulin ([facility]) Use to test blood sugar up to 3 times daily, as directed 100 each Active Diclofenac Sodium 1 % gelIndications: Articular gout APPLY 2 GRAMS TOPICALLY FOUR TIMES A DAY (BULK) 100 g Active lisinopril 40 MG tabletIndicatio ns:Type 2 diabetes mellitus with other specified complication, without long-term current use of insulin ([facility]) TAKE ONE TABLET BY MOUTH EVERY DAY ^1R1 30 tablet Active Multiple Vitamin (Multivitamin) tablet Take 1 tablet by mouth in the morning. Active Testosterone 1.62 % gel Active Continuous Glucose Sensor (FreeStyle Grace 2 Sensor) miscIndications :Poorly controlled diabetes mellitus ([facility]) Apply 1 sensor, as directed, every 14 days for CGM 2 each Active TRUEplus Lancets 33G misc Use to test blood sugar up to 3 time(s) daily as directed 100 each Active insulin degludec (Tresiba FlexTouch) 100 UNIT/ML injectionIndica tions:Poorly controlled diabetes mellitus ([facility]) Inject 12 Units under the skin Once daily. 15 mL Active omeprazole (PriLOSEC) [address] capsule TAKE ONE CAPSULE BY MOUTH EVERY MORNING 90 capsule 1 Active FeroSul 325 (65 Fe) MG tablet TAKE ONE TABLET BY MOUTH EVERY MORNING 90 tablet 1 Active Jardiance 10 MG Take 10 mg by mouth in the morning. Active amLODIPine (Norvasc) 5 MG tabletIndicatio ns:Essential hypertension Take 1 tablet (5 mg) by mouth Once per day. 30 tablet 024 2024 Active Tirzepatide (Mounjaro) 5 MG/0.5ML solution auto-injectorIn dications:Type 2 diabetes mellitus with other specified complication, with long-term current use of insulin (CMS/HCC) Inject 5 mg under the skin 1 (one) time per week. 2 mL 11 Active busPIRone (Buspar) 5 MG tablet TAKE ONE TABLET THREE TIMES DAILY IN THE MORNING, AT NOON, AND AT BEDTIME 90 tablet 025 Active amLODIPine (Norvasc) 2.5 MG tabletIndicatio ns:Essential hypertension Take 1 tablet (2.5 mg) by mouth Once per day. 30 tablet 11 024 2023 Discontinued(R eorder (will not trigger notification to Pharmacy)) Ozempic, 0.25 or 0.5 MG/DOSE, 2 MG/3ML solution pen-injectorInd ications:Poorly controlled diabetes mellitus (CMS/HCC) INJECT 0.5 MG SUBCUTANEOUSLY ONCE PER WEEK 3 mL 1 024 2023 Discontinued(A lternate therapy) busPIRone (Buspar) 5 MG tablet TAKE ONE TABLET THREE TIMES DAILY IN THE MORNING, AT NOON, AND AT BEDTIME 90 tablet 024 2024 Discontinued clotrimazole (Lotrimin) 1 % cream Apply topically 2 times daily for 28 days. 30 g 5 024 2024 Active Problems Problem Noted Date Diagnosed Date Acid reflux 02/05/2023 Anemia 02/05/2023 Benign prostatic hyperplasia 02/05/2023 Chronic constipation 02/05/2023 Effusion of right knee 02/05/2023 Rheumatoid factor positive 02/05/2023 History of colonic polyps 02/05/2023 Male hypogonadism 02/05/2023 Pain in joint 02/05/2023 Right knee pain 02/05/2023 Tubular adenoma 02/05/2023 Elevated rheumatoid factor 02/05/2023 Articular gout 07/29/2022 Hare's esophagus 07/29/2022 Diverticular disease 07/29/2022 Male erectile disorder 07/29/2022 Cyst of kidney, acquired 07/09/2021 Stage 3 chronic kidney disease 07/09/2021 Essential hypertension 10/15/2015 Type 2 diabetes mellitus 10/15/2015 Hyperlipidemia 01/24/2013 Anxiety state 03/17/2012 Depressive disorder 03/17/2012 Resolved Problems Problem Noted Date Diagnosed Date Resolved Date Prostatism 05/19/2016 10/15/2023 Encounters Date Type Department Care Team Description 09/14/2024 Telephone [facility] [address] [place] [address] Barber Wheeler MA feb recalls 09/13/2024 Telephone [facility] [address] [place] [address] Patty Echevarria, IVETTE 09/11/2024 Refill [facility] [address] [place] [address] Rodri Lund MD 08/29/2024 Travel 08/24/2024 11:15 AM EST Office Visit [facility] [address] [place] [phone] Rodri Lund MD Type 2 diabetes mellitus with other specified complication, with long-term current use of insulin ([facility]) (Primary Dx); Candidal balanitis; Seborrheic keratoses; Sebaceous cyst 08/18/2024 Orders Only GENERIC EXTERNAL DATA DEPARTMENT Provider, Generic External Data 08/17/2024 Patient Outreach [facility] [address] [place] [address] Rodri Lund MD Pre-visit Planning (SDOH was completed on 10/15/2023) 08/14/2024 Refill [facility] [address] [place] [address] Selvin Landry MD 07/17/2024 Refill [facility] [address] [place] [address] Rodri Lund MD 06/29/2024 Refill [facility] [address] [place] [address] [phone] Rodri Lund MD Poorly controlled diabetes mellitus ([facility]) 06/28/2024 Travel from Last 3 Months Immunizations Name Administration Dates Next Due Hep B, adult 01/24/2015,10/18/2014,07/20/2014 Influenza High-dose Quadriva lent Preservative Free 06/11/2023,06/16/2022,06/24/2021 Influenza injectable quadriv alent IIV4 with preservative 08/11/2016 Influenza injectable quadriv alent preservative free 06/14/2019,06/15/2018,10/15/2015 Influenza, High Dose Seasona l, Preservative Free 05/22/2024,06/10/2017 Influenza, IIV3, injectable 07/20/2014 Influenza, Split (incl. jhoan fied surface antigen) 07/12/2013,07/25/2012 Influenza, Unspecified 06/16/2022,06/24/2021, Moderna Covid-19 Vaccine 12+ 02/09/2022, 08/08/2021,12/04/2020,11/06 Pfizer Covid-19 Vaccine 12+ 05/26/2024,,06/16/2022 Pfizer Covid-19 Vaccine 12+ Bivalent 06/16/2022 Pneumococcal Conjugate PCV 13 05/01/2015 Pneumococcal Polysaccharide PPSV23 11/16/2019, RSV Bivalent 08/16/2023 TD (adult), 2 Lf tetanus tox oid, preservative free, adsorbed 12/07/2006 Tdap 01/07/2024,11/29/2013 Zoster, Recombinant 11/18/2022,09/16/2022 Zoster, live 11/29/2013 Social History Tobacco Use Types Packs/Day Years Used Date Smoking Tobacco: Former Cigarettes Passive Smoke Exposure: Past Smokeless Tobacco: Never Tobacco Cessation:Counseling Given: Not Answered Alcohol Use Standard Drinks/Week Comments Never 0 [...] not to disclose 2021 10:18 AM EDT Last Filed Vital Signs Vital Sign Reading Time Taken Comments Blood Pressure 144/78 08/29/2024 11:04 AM EST Pulse 72 08/24/2024 10:53 AM EST Temperature 35.6 ??C (96.1 ??F) 08/24/2024 1 0:53 AM EST Respiratory Rate 20 08/24/2024 10:5 3 AM EST Oxygen Saturation 98% 08/24/2024 10: 53 AM EST Inhaled Oxygen Concentration - - Weight 64.8 kg (142 lb 12.8 oz) 024 10:53 AM EST Height 152.4 cm (5') 08/24/2024 10:53 AM EST Body Mass Index 27.89 08/24/2024 10:53 AM EST Plan of Treatment Upcoming Encounters Date Type Department Care Team (Late st Contact Info) Description 10/05/2024 10:30 AM EST Medication Management [facility] [address] [place] [address] Ana Pavon, NoelD [address] [place] [address] 10/19/2024 10:30 AM EST Nutrition [facility]NTRN [address] [place] [address] [place] [address] 11/30/2024 10:30 AM EDT Office Visit [facility] [address] [place] [address] Name, MD Rodri [address] [place] [address] Health Maintenance Due Date Last Done Comments CT Colonography 1945 FIT DNA/Cologuard 1945 FIT 1945 FOBT 1945 Sigmoidoscopy 1945 Dental Oral Exam 07/14/2024 01/11/2024 Dental Prophylaxis 07/14/2024 01/11/2024 Diabetes: Foot Exam 09/22/2024 09/22/2023, 09/22/2023, 09/22/2023, Additional history exists Diabetes: Urine Protein Screening 09/22/2024 09/22/2023, 07/06/2022, 02/10/2022, Additional history exists Diabetes: Hemoglobin A1C 10/12/2024 024, 04/19/2024, 01/21/2024, Additional history exists Depression Screening 10/15/2024 10/15/2023, 10/15/19 24 SDOH Screening 10/15/2024 10/15/2023 Eye Exam 11/11/2024 11/11/2022 Dental X-Ray: Bitewings 01/11/2025 01/11/2024 Lipid Panel 06/28/2025 06/28/2024, 09/0 01/2023, 07/06/2022, Additional history exists Alcohol/Substance Use Screening 08/24/2025 08/24/2024 Tobacco Screening 08/24/2025 08/24/2024 Colonoscopy 01/20/2026 01/20/2023, 12/14/2022 Colorectal Cancer Screening 01/20/2026 Dental X-Ray: Full Mouth 01/11/2027 01/11/2024 DTaP/Tdap/Td Vaccines (3 - Td or Tdap) 01/06/2034 01/07/2024, 11/29/2013, 12/07/2006 Hepatitis B Vaccines Completed 01/24/2015, 10/18/2014, 07/20/2014 Pneumococcal Vaccine: 65+ Years Completed 11/16/2019, 05/01/2015, 12/07/2006 Hepatitis C Screening Completed 10/09/2020 Zoster Vaccines Completed 11/18/2022, 09/06, 11/29/2013 RSV Patients and Patients Aged 60 years or older Completed 08/16/2023 Influenza Vaccine Completed 05/22/2024, , 06/16/2022, Additional history exists COVID-19 Vaccine Completed 05/26/2024, 08/2023, 06/16/2022, Additional history exists HIB Vaccines Aged Out No longer eligi ble based on patient's age to complete this topic HPV Vaccines Aged Out No longer eligi ble based on patient's age to complete this topic Hepatitis A Vaccines Aged Out No long er eligible based on patient's age to complete this topic IPV Vaccines Aged Out No longer eligi ble based on patient's age to complete this topic Meningococcal Vaccine Aged Out No samia norbert eligible based on patient's age to complete this topic RSV under 20 months Aged Out No longe r eligible based on patient's age to complete this topic Rotavirus Vaccines Aged Out No longer eligible based on patient's age to complete this topic Goals Goal Patient Goal Type Associated Problems Recent Progress Patient-Stated? Author Hemoglobin A1c < 7.5 Result Component 8.9( 10:35 AM EST) No Ana Pavon, PharmD Record your blood sugar as directed Result Component No Ana Pavon, PharmD Note: Use CGM, ensuring sensor is scanned at least once every 8 hours to capture 24H data. Check BG manually, as directed. Procedures Procedure Name Priority Date/Time Associated Diagnosis Comments POCT GLUCOSE Routine 08/24/2024 10:54 AM EST Type 2 diabetes mellitus with other specified complication, with long-term current use of insulin ([facility]) TESTOSTERONE, FREE (DIALYSIS) AND TOTAL,MS Routine 08/18/2024 8:28 AM EST PSA, TOTAL Routine 08/18/2024 8:28 AM EST CBC Routine 08/18/2024 8:28 AM EST POCT GLYCATED HEMOGLOBIN, TOTAL Routine 07/12/2024 10:35 AM EST Type 2 diabetes mellitus with other specified complication, with long-term current use of insulin ([facility]) LIPID PANEL, STANDARD Routine 06/28/2024 9:45 AM EDT Type 2 diabetes mellitus with other specified complication, with long-term current use of insulin ([facility]) COMPREHENSIVE METABOLIC PANEL Routine 06/28/2024 9:45 AM EDT Type 2 diabetes mellitus with other specified complication, with long-term current use of insulin ([facility]) Full PROPHYLAXIS - ADULT Routine 01/11/2024 11:00 AM EDT Dental plaque Dental calculus DIAGNOSTIC - DIAGNOSTIC IMAGING - INTRAORAL - COMPREHENSIVE SERIES OF RADIOGRAPHIC IMAGES Routine 01/11/2024 11:00 AM EDT PERIODIC ORAL EVALUATION - ESTABLISHED PATIENT Routine 01/11/2024 11:00 AM EDT Dental plaque Dental calculus Encounter for dental examination Gingival recession, localized ALBUMIN, RANDOM URINE W/CREATININE Routine 09/22/2023 10:44 AM EST Type 2 diabetes mellitus with other specified complication, with long-term current use of insulin ([facility]) Stage 3 chronic kidney disease, unspecified whether stage 3a or 3b CKD ([facility]) COLONOSCOPY Routine 01/20/2023 1:46 PM EDT DIABETES EYE EXAM Routine 11/11/2022 ZZZ HISTORICAL HEPATITIS A,B,C PROFILE Routine 10/09/2020 1:30 PM EST from Last 3 Months or Most Recently Relevant to Health Maintenance Results * (ABNORMAL) POCT Glucose (08/24/2024 10:54 AM EST) [facility] Glucose Blood, POC 234(A) 60 - 200 mg/dL QC Media Lot # [id number] Lot# Expiration Date [id number] Blood Capillary blood specimen / Unknown 08/24/2024 10:54 AM EST us Rodri Name POINT OF CARE TEST ENTER/EDIT OR DERABLES Final Result * (ABNORMAL) CBC (08/18/2024 8:28 AM EST) White Blood Count 11.2(H) 4.8 - 10.8 X10*3/uL [facility] Red Blood Count 4.67 4.60 - 5.80 X10*6/uL [facility] Hemoglobin 13.3(L) 14.0 - 18.0 g/dl [facility] Hematocrit 40.8(L) 42.0 - 52.0 % [facility] Mean Corpuscular Volume 87.4 80.0 - 98.0 fL [facility] Mean Corpuscular Hemoglobin 28.5 27.0 - 33.0 pg [facility] Mean Corpuscular HGB Conc 32.6 31.0 - 36.0 g/dl [facility] Red Cell Distribution Width 13.9 11.0 - 16.0 % [facility] Platelet Count 297 160 - 400 X10*3/uL [facility] Mean Platelet Volume 9.8 9.4 - 12.4 fL [facility] NRBC Pct Auto 0.0 0.0 - 0.2 /100WBC [facility] NRBC Abs Auto 0.000 0.0 - 0.012 X10*3/uL [facility] 08/18/2024 8:28 AM EST 08/18/2024 8:28 AM EST us Generic External Data Provider LAB BLOOD ORDERAB LES Final Result [facility] [address] [place] [address] [phone] * (ABNORMAL) Testosterone, Free (Dialysis) And Total, MS (08/18/2024 8:28 AM EST) Testosterone, Total 139(A) 250 - 1100 ng/dL [facility] Comment:Men with clinically significant hypogonadalsymptoms and testosterone values repeatedly inthe range of the 200-300 ng/dL or less, maybenefit from testosterone treatment afteradequate risk and benefits counseling.For additional information, please refer tohttp://[email or web address]/faq/[email or web address](This link is being provided for informational/educational purposes only.)This test was developed and its analytical performancecharacteristics have been determined by [employer] [place], [place]. It hasnot been cleared or approved by the U.S. Food and DrugAdministration. This assay has been validated pursuantto the CLIA regulations and is used for clinicalpurposes. Testosterone, Free 29.3(A) 30.0 - 135.0 pg/mL [facility] Comment:This test was develo ped and its analytical performancecharacteristics have been determined by [employer] [place] [place]. It hasnot been cleared or approved by the U.S. Food and DrugAdministration. This assay has been validated pursuantto the CLIA regulations and is used for clinicalpurposes.THIS TEST WAS PERFORMED AT:[employer] [id number] [place] [id number] FROST MD,PHD 08/18/2024 8:28 AM EST 08/18/2024 8:28 AM EST us Generic External Data Provider LAB BLOOD ORDERAB LES Final Result [facility] [address] [place] [phone] * PSA,Total (08/18/2024 8:28 AM EST) Prostate Specific Antigen 1.54 <0.05 - 4.0 ng/mL [facility] Comment:PSA methodology: Abb sirena Alilainaty i ChemiluminescentMicroparticle Immunoassay (CMIA) 08/18/2024 8:28 AM EST 08/18/2024 8:28 AM EST us Generic External Data Provider LAB BLOOD ORDERAB LES Final Result [facility] [address] [place] [address] [phone] * (ABNORMAL) POCT HGB A1C (07/12/2024 10:35 AM EST) Hemoglobin A1C 8.9(A) 4.0 - 6.0 % Blood 07/12/2024 10:3 5 AM EST us Rodri Name POINT OF CARE TEST ENTER/EDIT OR DERABLES Final Result * (ABNORMAL) Lipid Panel, Standard (06/28/2024 9:45 AM EDT) Triglycerides 161(H) <150 mg/dL [facility] Comment:Desirable Triglyceri de: less than 150 mg/dLBorderline High Triglyceride 150-199 mg/dLHigh Triglyceride: 200-499 mg/dLVery High Triglyceride: greater than or equal to 5OO mg/dL Cholesterol 177 <200 mg/dL [facility] Comment:Desirable Cholestero l: less than 200 mg/dLBorderline High Cholesterol: 200-239 mg/dLHigh Cholesterol: greater than 239 mg/dL LDL Cholesterol Calculated 107(H) <100 mg/dL [facility] Comment:Desirable LDL: less than 100 mg/dLNear Optimal/Above Optimal LDL: 110- 129 mg/dLBorderline High LDL: 130-159 mg/dLHigh LDL: 160-189 mg/dLVery High LDL: greater than or equal to 190 mg/dL HDL Cholesterol 38(L) >40 mg/dL [facility] Comment:Desirable HDL: great er than 40 mg/dL Note: This HDL assay may give artificially low results in patients with liver disease. Blood Venous blood specimen / Unknown 06/28/2024 9:45 AM EDT 06/28/2024 11:12 AM EDT us Rodri Name MD LAB BLOOD ORDERABLES Final Resul t [facility] [address] [place] [address] [phone] * (ABNORMAL) Comprehensive Metabolic Panel (06/28/2024 9:45 AM EDT) Sodium 140 135 - 145 mmol/L [facility] Potassium 4.1 3.3 - 5.1 mmol/L [facility] Chloride 106 96 - 108 mmol/L [facility] Carbon Dioxide 28 22 - 29 mmol/L [facility] Anion Gap 10(L) 12 - 20 [facility] Urea Nitrogen (BUN) 17(H) 9 - 16 mg/dL [facility] Creatinine, Serum 1.16 0.5 - 1.4 mg/dL [facility] Estimated Glomerular Filt Rate >60 [facility] Comment:NOTE: For -Am erican individuals, multiply the result by 1.210.Chronic Kidney Disease: Estimated GFR < 60 mL/min/1.87t1Fwztye Kidney Disease: Estimated GFR < 15 mL/min/1.73m2 Glucose 166(H) 60 - 115 mg/dL [facility] Calcium 9.5 8.4 - 10.2 mg/dL [facility] Bilirubin, Total 0.5 0.0 - 1.0 mg/dL [facility] Aspartate Amino Transferase 40(H) 5 - 37 U/L [facility] Alanine Aminotransferase 49(H) 0 - 40 U/L [facility] Total Protein 7.2 6.5 - 8.0 g/dL [facility] Albumin Level 4.0 3.5 - 5.0 g/dL [facility] Alkaline Phosphatase 90 39 - 117 U/L [facility] Blood Venous blood specimen / Unknown 06/28/2024 9:45 AM EDT 06/28/2024 11:12 AM EDT us Rodri Name MD LAB BLOOD ORDERABLES Final Resul t Performing Organization Address [facility] de Phone Number [facility] [address] [place] [phone] * (ABNORMAL) Albumin, Random Urine W/Creatinine (09/22/2023 10:44 AM EST) Creatinine, Urine 71.61 mg/dL [facility] Microalbumin Urine 125.0 mg/L H [facility] Microalbum Creatinine Ratio Ur 174.5(H) <30 ug/mg cr [facility] Comment:Albumin/Creatinine R atio Reference Ranges: Normal: < 30 ug/mg creatinine Microalbuminuria: 30 - 300 ug/mg creatinineClinical Albuminuria: > 300 ug/mg creatinine Urine (Urine, Random) 09/22/2023 10:44 AM EST 09/22/2023 11:25 AM EST us Rodri Lund MD LAB URINE ORDERABLES Final Resul t Performing Organization Address [facility] de Phone Number [facility] [address] [place] [phone] * (ABNORMAL) Colonoscopy (01/20/2023 1:46 PM EDT) Colonoscopy Abnormal( A) Normal Comment:Hx of polyps repeat every 3 yrs us Rodri Lund MD HEALTH MAINTENANCE Final Result * Hm Diabetes Eye Exam (11/11/2022) Eye Exam Normal Normal us Rodri Lund MD HEALTH MAINTENANCE Final Result * Hepatitis A,B,C Profile (10/09/2020 1:30 PM EST) Hepatitis B Core Antibody Nonreactive Nonreactive [facility] Hepatitis B Surface Antibody NONREACTIVE Nonreactive [facility] Comment:Nonreactive: < 8.00 mIU/mL Hepatitis B Surface Antigen Negative Negative [facility] Hepatitis C Antibody Nonreactive Nonreactive [facility] Comment: Antibodies to HCV not detected; does not exclude early acute HCV infection. 10/09/2020 1:30 PM EST us Historical Provider HISTORICAL/NON ORDERABLE LABS Final Result [facility] [address] [place] [address], from Last 3 Months or Most Recently Relevant to Health Maintenance Insurance [facility] Care Teams Warehouse Attendant Relationship Specialty Start Date End Date Name, MD Rodri [address] [place] [phone] PCP - General Family Medicine 09/24/15 Ana Pavon, PharmD [address] [place] [phone] Pharmacist Internal Medicine 04/28/23 [facility] [place] 09/01/24
--- OUTSIDE RECORDS SUMMARY | 2024-09-27 15:57 | XMS_ITS | Encounter Summary ---
Author Organization [employer] Address [address] [place] [address] [address] [place] [address] Care Team Providers Care Iron Cutter Name Role Phone Name, Rodri WINN Primary Care Provider Ana Pavon PharmD Unavailable [phone] Encounter Details Date Type Department Care Team (Latest Contact Info) Description 02/25/2021 Abstract [facility] Dental, Provider, DDS Social History Tobacco Use Types Packs/Day Years Used Date Smoking Tobacco: Never Assessed Sex and Gender Information Value Date Recorded Sex Assigned at Male 07/06/2022 10:18 AM EDT Legal Sex Male 10:18 AM EDT Gender Identity Male 07/06/2022 10:18 AM EDT Sexual Orientation Choose not to disclose 2021 10:18 AM EDT documented as of this encounter Plan of Treatment Upcoming Encounters Date Type Department Care Team ( st Contact Info) Description 10/05/2024 10:30 AM EST Medication Management [facility] [address] [place] [phone] Ana Pavon, PharmD [address] [place] [address] 10/19/2024 10:30 AM EST Nutrition [facility]/NTRN [address] [place] [address] [place] [address] 11/30/2024 10:30 AM EDT Office Visit [facility] [address] [place] [phone] Name, MD Rodri [address] [place] [phone] documented as of this encounter Visit Diagnoses Not on filedocumented in this encounter Care Teams Iron Cutter Relationship Specialty Start Date End Date Name, MD Rodri [address] [place] [address] [phone] PCP - General Family Medicine 09/24/15 Ana Pavon, Mary [address] [place] [phone] Pharmacist Internal Medicine 04/28/23 [facility] 09/01/24 documented as of this encounter
--- OUTSIDE RECORDS SUMMARY | 2024-09-27 15:57 | XMS_ITS | Encounter Summary ---
Author Organization [employer] Address [address] [facility] 7t [place] [address] Care Team Providers Care Ticket Machine Operator Name Role Phone Name, Rodri WINN Primary Care Provider [phone] Ana Pavon PharmD Unavailable [phone] Encounter Details Date Type Department Care Team (Latest Contact Info) Description 08/29/2024 Travel Social History Tobacco Use Types Packs/Day Years [...] Description 10/05/2024 10:30 AM EST Medication Management [facility] 230 [place] [address] PuiaDavidAna, PharmD 230 [place] [address] 10/19/2024 10:30 AM EST Nutrition [facility] CHC DIABETES/NTRN 505 [place], [place] [phone] 230 [place] [address] 11/30/2024 10:30 AM EDT Office Visit [facility] [address] [place] [address] NameRodri MD [address] [place] [address] documented as of this encounter Goals Goal Patient Goal Type Associated Problems Recent Progress Patient-Stated? Author Hemoglobin A1c < 7.5 Result Component 8.9( 10:35 AM EST) No Puia, Ana, PharmD Record your blood sugar as directed Result Component No Puia, Ana, PharmD Note: Use CGM, ensuring sensor is scanned at least once every 8 hours to capture 24H data. Check BG manually, as directed. documented as of this encounter Visit Diagnoses Not on filedocumented in this encounter Additional Health Concerns Assessment Noted Time PHQ-9 Depression Total Score: 0 10/15/19 24 10:57 AM EST documented as of this encounter Care Teams Ticket Machine Operator Relationship Specialty Start Date End Date NameRodri MD 230 [place] [address] PCP - General Family Medicine 09/24/15 Ana Pavon PharmD [address] [place] [address] Pharmacist Internal Medicine 04/28/23 documented as of this encounter
--- OUTSIDE RECORDS SUMMARY | 2024-09-27 15:57 | XMS_ITS | Encounter Summary ---
Author Organization [employer] Address [address] [facility] 7t [place] [address] Care Team Providers Care Histology Supervisor Name Role Phone Name, Rodri WINN Primary Care Provider [phone] Ana Pavon PharmD Unavailable [phone] Reason for Visit * Reason Onset Date Comments oct recalls 09/14/2024 Encounter Details Date Type Department Care Team (Late st Contact Info) Description 09/14/2024 Telephone [facility] MEDICINE 230 [place], [place] [phone] Barber [place] oct recalls Social History Tobacco Use Types Packs/Day Years [...] AM EDT documented as of this encounter Miscellaneous Notes * Telephone Encounter - Barber Wheeler [place] - 09/14/2024 3:46 PM EST T/C placed to pt. Scheduled recall. Pt agrees with plan. Reminder letter sent . documented in this encounter Plan of Treatment Upcoming Encounters Date Type Department Care Team (Late st Contact Info) Description 10/05/2024 10:30 AM EST Medication Management [facility] [address] [place] [address] Ana Pavon, Mary [address] [place] [address] 10/19/2024 10:30 AM EST Nutrition [facility] CHC DIABETES/NTRN 505 [place] [address] [place] [address] 11/30/2024 10:30 AM EDT Office Visit [facility] [address] [place] [address] Name, MD Rodri [address] [place] [address] documented as of this encounter Goals Goal Patient Goal Type Associated Problems Recent Progress Patient-Stated? Author Hemoglobin A1c < 7.5 Result Component 8.9( 4 10:35 AM EST) No Ana Pavon PharmD Record your blood sugar as directed [...] documented as of this encounter Care Teams Histology Supervisor Relationship Specialty Start Date End Date Name, MD Rodri 230 [place] [address] PCP - General Family Medicine 09/24/15 Ana Pavon PharmD 230 [place] [address] Pharmacist Internal Medicine 04/28/23 [facility] 09/01/24 documented as of this encounter
--- OUTSIDE RECORDS SUMMARY | 2024-09-27 15:57 | XMS_ITS | Encounter Summary ---
Author Organization [employer] Address 75 [facility] 7t [place] [address] Care Team Providers Care Vehicle Check In Clerk Name Role Phone Name, Rodri WINN Primary Care Provider [phone] Ana Pavon PharmD Unavailable [phone] Reason for Visit * Reason Comments Med Refill Encounter Details Date Type Department Care Team ([facility] st Contact Info) Description 11/19/2023 Refill [facility] MED[facility]INE 230 [place], [place] [phone] Name, MD Rodri 230 [place] [address] Social History Tobacco Use Types Packs/Day Years Used Date Smoking Tobacco: Never Passive Smoke Exposure: Current Smokeless Tobacco: Never Alcohol Use Standard Drinks/Week [...] Description 10/05/2024 10:30 AM EST Medication Management [facility] MEDICINE [address] [place] [address] Ana Pavon PharmD [address] [place] [address] 10/19/2024 10:30 AM EST Nutrition [facility] CHC DIABETES/NTRN 505 [place], [place] [phone] Nguyen R[address] [place] [address] 11/30/2024 10:30 AM EDT Office Visit [facility] MEDICINE [address] [place] [address] Name, MD Rodri [address] [place] [address] documented as of this encounter Goals Goal [...] documented as of this encounter Care Teams Vehicle Check In Clerk Relationship Specialty Start Date End Date Name, MD Rodri 230 [place] [address] PCP - General Family Medicine 09/24/15 Ana Pavon PharmD 230 [place] [address] Pharmacist Internal Medicine 04/28/23 [facility] 09/01/24 documented as of this encounter
--- OUTSIDE RECORDS SUMMARY | 2024-09-27 15:57 | XMS_ITS | Encounter Summary ---
Author Organization [employer] Address [address] [place] [address] 7t [place] [address] Care Team Providers Care College Recruiter Name Role Phone Name, Rodri WINN Primary Care Provider [phone] Ana Pavon PharmD Unavailable [phone] Encounter Details Date Type Department Care Team (Latest Contact Info) Description 06/25/2022 Abstract [facility] CONVERSIONS Dental, Provider, DDS Social History [...] Description 10/05/2024 10:30 AM EST Medication Management [facility] MEDICINE [address] [place] [address] Ana Pavon, PharmD 230 [place] [address] 10/19/2024 10:30 AM EST Nutrition [facility] CHC DIABETES/NTRN 505 [place] [address] 230 [place] [address] 11/30/2024 10:30 AM EDT Office Visit [facility] MEDICINE [address] [place] [address] Name, MD Rodri [address] [place] [address] documented as of this encounter Visit Diagnoses Not on filedocumented in this encounter Care Teams College Recruiter Relationship Specialty Start Date End Date Name, MD Rodri [address] [place] [address] [phone] PCP - General Family Medicine 09/24/15 Ana Pavon, Mary [address] [place] [address] Pharmacist Internal Medicine 04/28/23 [facility] 09/01/24 documented as of this encounter
--- OUTSIDE RECORDS SUMMARY | 2024-09-27 15:57 | XMS_ITS | Encounter Summary ---
Author Organization [employer] Address [address] [place] [address] 7t [place] [address] Care Team Providers Care Foil Spinner Name Role Phone Name, Rodri WINN Primary Care Provider Ana Pavon PharmD Unavailable [phone] Reason for Visit * Reason Comments Med Refill Encounter Details Date Type Department Care Team ([facility] Contact Info) Description 03/24/2023 Refill [facility] MEDICINE 230 [place], [place] [phone] Name, MD Rodri 230 [place] [address] Social History Tobacco Use Types Packs/Day Years Used Date Smoking Tobacco: Never Passive Smoke Exposure: Current Smokeless Tobacco: Never Alcohol Use Standard Drinks/Week Comments Never 0 (1 standard drink = 0.6 oz pur e alcohol) PHQ-2 Answer Date Recorded Patient Health Questionnaire-2 Score 0 09/30/2022 Depression Answer Date Recorded Patient Health Questionnaire-2 Score 0 09/30/2022 Sex and Gender Information Value Date Recorded Sex Assigned at Male 07/06/2022 10:18 AM EDT Legal Sex Male 10:18 AM EDT Gender Identity Male 07/06/2022 10:18 AM EDT Sexual Orientation Choose not to disclose 2021 10:18 AM EDT COVID-19 Exposure Response Date Recorded In the last 10 days, have yo u been in contact with someone who was confirmed or suspected to have Coronavirus/COVID-19? No / Unsure 03/10/2023 2:03 PM EDT documented as of this encounter Plan of Treatment Upcoming Encounters Date Type Department Care Team ([facility] [address] Contact Info) Description 10/05/2024 10:30 AM EST Medication Management [facility] MEDICINE [address] [place] [address] Ana Pavon PharmD [address] [place] [address] 10/19/2024 10:30 AM EST Nutrition [facility] CHC DIABETES/NTRN 505 [place], [place] [phone] [address] 230 [place] [address] 11/30/2024 10:30 AM EDT Office Visit [facility] MEDICINE 230 [place] [address] Name, [place] [address] documented as of this encounter Visit Diagnoses Not on filedocumented in this encounter Care Teams Foil Spinner Relationship Specialty Start Date End Date Name, MD Rodri [address] [place] [address] PCP - General Family Medicine 09/24/15 Ana Pavon PharmD [address] [place] [address] Pharmacist Internal Medicine 04/28/23 [facility] 09/01/24 documented as of this encounter
--- OUTSIDE RECORDS SUMMARY | 2024-09-27 15:57 | XMS_ITS | Encounter Summary ---
Author Organization [employer] Address [address] [place] [address] 7t [place] [address] Care Team Providers Care Lather Apprentice Name Role Phone Name, Rodri WINN Primary Care Provider [phone] Ana Pavon PharmD Unavailable [phone] Reason for Visit * Reason Comments Med Refill Encounter Details Date Type Department Care Team (Late st Contact Info) Description 04/13/2023 Refill [facility] MEDICINE 230 [place], [place] [phone] Name, MD Rodri 230 [place] [address] Social History Tobacco Use Types Packs/Day Years [...] Encounters Date Type Department Care Team (Late Contact Info) Description 10/05/2024 10:30 AM EST Medication Management [facility] MEDICINE 230 [place], [place] [phone] PuiaAna, PharmD 230 [place] [address] 10/19/2024 10:30 AM EST Nutrition [facility] CHC DIABETES/NTRN [address] [place] [address] Nguyen Ragsdale, ALDO 230 [place] [address] 11/30/2024 10:30 AM EDT Office Visit [facility] MEDICINE [address] [place] [address] Name, MD Rodri [address] [place] [address] documented as of this encounter Visit Diagnoses Not on filedocumented in this encounter Care Teams Lather Apprentice Relationship Specialty Start Date End Date NameRodri MD [address] [place] [address] PCP - General Family Medicine 09/24/15 Ana Pavon, NoelD [address] [place] [address] Pharmacist Internal Medicine 04/28/23 [facility] 09/01/24 documented as of this encounter
--- OUTSIDE RECORDS SUMMARY | 2024-09-27 15:57 | XMS_ITS | Encounter Summary ---
Author Organization [employer] Address 75 [facility] 7t [place] [address] Care Team Providers Care Litigation Services Manager Name Role Phone Name, Rodri WINN Primary Care Provider [phone] Ana Pavon PharmD Unavailable [phone] Encounter Details Date Type Department Care Team (Late st Contact Info) Description 09/13/[address] [facility] MEDICINE 230 [place], [place] [phone] Patty Echevarria RN Social History Tobacco Use Types Packs/Day Years [...] is your housing situation today? I have emrrill batres 10/15/[address] you [...] encounter Miscellaneous Notes * Telephone Encounter - Patty Echevarria RN - 09/13/2024 11:22 AM EST Tc to [facility] pharmacy to see if a PA is needed since we received a request for prior authorization from the. [facility] pharmacy reports PA was already completed, pt CGM supplies were sold on 09/11/24 and no further questions or concerns at this time. documented in this encounter Plan of Treatment Upcoming Encounters Date Type Department Care Team (Late st Contact Info) Description 10/05/2024 10:30 AM EST Medication Management [facility] MEDICINE [address] [place] [address] Ana Pavon, PharmD 230 [place] [address] 10/19/2024 10:30 AM EST Nutrition [facility] DIABETES/NTRN 505 [place] [address] [place] [address] 11/30/2024 10:30 AM EDT Office Visit [facility] MEDICINE [address] [place] [address] [phone] Name, MD Rodri [address] [place] [address] documented as of this encounter Goals Goal Patient Goal Type Associated Problems Recent Progress Patient-Stated? Author Hemoglobin A1c < 7.5 Result Component 8.9(11/06/202 4 10:35 AM EST) No Ana Pavon [...] documented as of this encounter Care Teams Litigation Services Manager Relationship Specialty Start Date End Date Name, MD Rodri 230 [place] [address] PCP - General Family Medicine 09/24/15 Ana Pavon PharmD 230 [place] [address] Pharmacist Internal Medicine 04/28/23 [facility] 09/01/24 documented as of this encounter
--- OUTSIDE RECORDS SUMMARY | 2024-09-27 15:57 | XMS_ITS | Encounter Summary ---
Author Organization [employer] Address [address] [place] [address] 7t [place] [address] Care Team Providers Care Marketing Community Liaison Name Role Phone Name, Rodri WINN Primary Care Provider [phone] Ana Pavon PharmD Unavailable [phone] Encounter Details Date Type Department Care Team (Latest Contact Info) Description 08/23/2019 Abstract [facility] CONVERSIONS Dental, Provider, DDS Social History Tobacco [...] 10:30 AM EST Medication Management [facility] MEDICINE [address] [place] [address] Ana Pavon, PharmD 230 [place] [address] 10/19/2024 10:30 AM EST Nutrition [facility] CHC DIABETES/NTRN 505 [place] [address] [place] [address] 11/30/2024 10:30 AM EDT Office Visit [facility] MEDICINE [address] [place] [address] Name, MD Rodri [address] [place] [address] [place] [address] documented as of this encounter Visit Diagnoses Not on filedocumented in this encounter Care Teams Marketing Community Liaison Relationship Specialty Start Date End Date Name, MD Rodri [address] [place] [address] [phone] PCP - General Family Medicine 09/24/15 Ana Pavon PharmD [address] [place] [address] Pharmacist Internal Medicine 04/28/23 [facility] 09/01/24 documented as of this encounter
--- OUTSIDE RECORDS SUMMARY | 2024-09-27 15:57 | XMS_ITS | Encounter Summary ---
Author Organization [employer] Address [address] [place] [address] 7t [place] [address] Care Team Providers Care Leacher Name Role Phone Name, Rodri WINN Primary Care Provider [phone] Ana Pavon PharmD Unavailable [phone] Reason for Visit * Reason Comments Med Refill Encounter Details Date Type Department Care Team ([facility] st Contact Info) Description 04/07/2023 Refill [facility] MEDICINE 230 [place], [place] [phone] Name, MD Rodri 230 [place] [address] Social History Tobacco Use Types Packs/Day Years [...] PM EDT documented as of this encounter Miscellaneous Notes * Telephone Encounter - Taryn Mcdaniel RN - 04/08/2023 10:49 AM EDT Med request came from [facility] who pt uses as a secondary pharmacy. Pt did not request refill. * Telephone Encounter - SWETA Caicedo - 04/07/2023 5:29 PM EDT PCP sent Jardiance 25mg daily with 11 refills in Sep 2023. He should have refill available. Refill requested is for 10mg daily. Please call pt to clarify, as I do not see indication in notes from PCPto decrease dose to 10mg daily. documented in this encounter Plan of Treatment Upcoming Encounters Date Type Department Care Team (Late st Contact Info) Description 10/05/2024 10:30 AM EST Medication Management [address] [address] Ana Pavon PharmD [address] [place] [address] 10/19/2024 10:30 AM EST Nutrition [facility] CHC DIABETES/NTRN 505 [place], [place] [phone] Nguyen Ragsdale, RD 230 [place] [address] 11/30/2024 10:30 AM EDT Office Visit [facility] MEDICINE [address] [place] [address] Name, MD Rodri [address] [place] [address] documented as of this encounter Visit Diagnoses Not on filedocumented in this encounter Care Teams Leacher Relationship Specialty Start Date End Date Rodri Lund MD [address] [place] [address] PCP - General Family Medicine 09/24/15 PuiaAna PharmD [address] [place] [address] Pharmacist Internal Medicine 04/28/23 [facility] 09/01/24 documented as of this encounter
--- OUTSIDE RECORDS SUMMARY | 2024-09-27 15:58 | XMS_ITS | Clinical Summary ---
Author Organization [facility] Address [address] [phone] Phone Care Team Providers Care Almond Cutting Machine Tender Name Role Phone Name, Rodri WINN Primary Care Provider Allergies Active Allergy Reactions Criticality Noted Date Comments Aspirin Rash Low 06/29/2012 Other reaction(s): Stomach Pain Medications aspirin (ST NEVILLE) 81 MG EC tablet Take 81 mg by mouth 1 (one) time each day 1 Active Pain Relief Extra Strength 500 MG tablet Take by mouth if needed 1 Active busPIRone (BUSPAR) 5 MG tablet Take 5 mg by mouth in the morning and 5 mg in the evening and 5 mg before bedtime. 1 Active Diclofenac Sodium 1 % gel 1 Active docusate sodium (COLACE) 100 MG capsule Take 100 mg by mouth if needed 1 Active FeroSul 325 (65 Fe) MG tablet Take 1 tablet by mouth 1 (one) time each day with breakfast 1 Active lisinopril 40 MG tablet Take 40 mg by mouth 1 (one) time each day 1 Active pravastatin (PRAVACHOL) 20 MG tablet Take 20 mg by mouth 1 (one) time each day 1 Active tamsulosin (FLOMAX) 0.4 MG 24 hr capsule Take 0.4 mg by mouth 1 (one) time each day 1 Active Testosterone 1.62 % gel 1 Active sildenafil (VIAGRA) 50 MG tablet Take 50 mg by mouth 1 (one) time each day if needed for erectile dysfunction Active Melatonin 1 MG capsule Take by mouth at bed time Active allopurinol (ZYLOPRIM) 100 MG tablet Take 100 mg by mouth 1 (one) time each day 2 Active amLODIPine (NORVASC) 10 MG tablet Take 1 tablet (10 mg total) by mouth 1 (one) time each day 60 tablet 2 Active OneLAX 10 MG suppository INSERT 1 SUPPOSITORY RECTALLY ONCE DAILY NEEDED 3 Active clotrimazole (LOTRIMIN) 1 % cream 2 (two) times a day APPLY TOPICALLY TO THE AFFECTED AREA TWICE DAILY 3 Active famotidine (PEPCID) 40 MG tablet Take 40 mg by mouth 1 (one) time each day 3 Active fluconazole (DIFLUCAN) 150 MG tablet 3 Active insulin degludec (TRESIBA FLEX TOUCH) 100 UNIT/ML injection Inject 10 Units under the skin at bed time 3 Active LORazepam (ATIVAN) 1 MG tablet 3 Active Soluble Fiber Therapy oral powder 3 Active Multiple Vitamins-Iron (Tab-A-Mark/Iro n) tablet 3 Active omeprazole (PriLOSEC) [address] capsule 3 Active polyethylene glycol (GLYCOLAX) 17 GM/SCOOP powder TAKE 17GM BY MOUTH ONCE DAILY 3 Active pregabalin (LYRICA) 150 MG capsule Take 150 mg by mouth in the morning and 150 mg in the evening. 3 Active Ozempic, 1 MG/DOSE, 4 MG/3ML solution pen-injector INJECT 1MG SUBCUTANEOUS ONCE WEEKLY 3 Active terazosin (HYTRIN) 5 MG capsule Take 5 mg by mouth at bed time 3 Active Empagliflozin 10 MG tablet Take 10 mg by mouth 1 (one) time each day in the morning 30 tablet 5 4 Active Active Problems Problem Noted Date Diagnosed Date Acid reflux 02/05/2023 05/12/2023 Anemia 02/05/2023 05/12/2023 Benign prostatic hyperplasia 02/05/202302/2023 Chronic constipation 02/05/2023 05/12/2023 Effusion of right knee 02/05/2023 3 History of polyp of colon 02/05/20232022 Male hypogonadism 02/05/2023 05/12/2023 Pain in joint 02/05/2023 05/12/2023 Pain of right knee region 02/05/20232022 Rheumatoid factor detected 02/05/2023 Tubular adenoma 02/05/2023 05/12/2023 Articular gout 07/29/2022 05/11/2023 Hare's esophagus 07/29/2022 05/11/2023 Diverticular disease 07/29/2022 05/11/2023 Male erectile disorder 07/29/2022 Cyst of kidney 07/09/2021 Stage 3 chronic kidney disease 07/09/2021 Prostatism 05/19/2016 05/11/2023 Essential hypertension 10/15/2015 Type 2 diabetes mellitus 10/15/2015 023 Hyperlipidemia 01/24/2013 05/11/2023 Anxiety state 03/17/2012 05/11/2023 Depressive disorder 03/17/2012 05/11/2023 Encounters Date Type Department Care Team Description 07/17/2024 2:15 PM EST Office Visit [facility] [address] [place] [phone] Byron Rodas MD Stage 3 chronic kidney disease, not otherwise specified (HCC) (Primary Dx); Hypertension; Complex renal cyst from Last 3 Months Immunizations Name Administration Dates Next Due Hepatitis B 01/24/2015,10/18/2014,07/20/2014 Influenza Split 07/12/2013,07/25/2012 Influenza Split High Dose Pr eservative Free IM 06/10/2017 Influenza, Quadrivalent, Pre servative Free 06/14/2019,06/15/2018,10/15/2015 Influenza, Quadrivalent, Wit h Preservative 08/11/2016 Influenza, Unspecified 06/16/2022,06/24/2021, Moderna SARS-COV-2 02/09/2022,,12/04/2020,11/06 Pfizer SARS-COV-2 06/16/2022 Pneumococcal Conjugate 13-Valent 05/01/2015 Pneumococcal Polysaccharide 11/16/2019, 7 Shingrix 11/18/2022,09/16/2022 Td 12/07/2006 Tdap 11/29/2013 Zoster 11/29/2013 Family History Medical History Relation Comments Cancer Sister Relation Status Comments Sister Social History Tobacco Use Types Packs/Day Years Used Date Smoking Tobacco: Former Smokeless Tobacco: Former Tobacco Cessation:Counseling Given: Not Answered Alcohol Use Standard Drinks/Week Comments Never 0 (1 standard drink = 0.6 oz pur e alcohol) Sex and Gender Information Value Date Recorded Sex Assigned at Not on file Legal Sex Male 11:47 AM EDT Gender Identity Not on file Sexual Orientation Not on file Last Filed Vital Signs Vital Sign Reading Time Taken Comments Blood Pressure 128/66 07/17/2024 1:37 PM EST Pulse 65 07/17/2024 1:37 PM EST Temperature - - Respiratory Rate - - Oxygen Saturation 97% 05/12/2023 1:49 PM EDT Inhaled Oxygen Concentration - - Weight 65.3 kg (144 lb) 07/17/2024 1:37 PM EST Height - - Body Mass Index - - Plan of Treatment Upcoming Encounters Date Type Department Care Team (Late st Contact Info) Description 01/22/2025 3:30 PM EDT Office [facility] [address] [phone] Byron Rodas MD [address] [phone] Health Maintenance Due Date Last Done Comments Diabetes: Ophthalmology Exam 10/26/2022 Diabetes: Pedal Pulse Checked 10/26/2022 Diabetes: Sensory Foot Exam 10/26/2022 Diabetes: Visual Foot Exam 10/26/2022 Diabetes: Hemoglobin A1C 10/12/2024 024, 04/19/2024, 11/18/2023, Additional history exists Hepatitis B Vaccine Aged Out 01/24/2015, 10/18/2014, 07/20/2014 No longer eligible based on patient's age to complete this topic Pneumococcal Vaccine: 65+ Years Completed 11/16/2019, 05/01/2015, 12/07/2006 Influenza Vaccine Completed 05/22/2024, , 06/24/2021, Additional history exists Procedures Procedure Name Priority Date/Time Associated Diagnosis Comments US RENAL LIMITED Routine 09/07/2024 4:33 PM EST Complex renal cyst from Last 3 Months Results * Ultrasound renal limited (09/07/2024 4:33 PM EST) Anatomical Region Laterality Modality Body Ultrasound Byron DUBON US PROCEDURES Final Result from Last [address] [place] [address] ([id number]) [facility] ([id number]) Care Teams Almond Cutting Machine Tender Relationship Specialty Start Date End Date Name, MD Rodri [address] [place] [id number] PCP - General Internal Medicine 06/25/21
== END 2024-09-27 14:31 | disposition home or self-care (01) ==
PROVIDERS: PCP Internal Medicine Geriatric Medicine; Visit Provider Internal Medicine
DX: R12 Heartburn (principal); Z79.899 Other long term (current) drug therapy
CPT/HCPCS: 99214

== ENCOUNTER → 2024-09-27 13:46 | Outpatient (BNVA) | payer OTHER, SELFPAY | PROVIDERS: PCP Internal Medicine Geriatric Medicine; Visit Provider Internal Medicine | DX: K21.9 Gastro-esophageal reflux disease without esophagitis (principal); R14.2 Eructation; Z79.899 Other long term (current) drug therapy | CPT/HCPCS: 99212 ==

== ENCOUNTER 2024-11-09 05:42 | Day surgery (SDC) | payer OTHER, SELFPAY ==
[2024-10-11 08:57] VITALS: BMI 27.9
--- NOTE | 2024-10-11 14:29 | P.CONAN_ITS ---
HPI - Anesthesia Eval Consult details Narrative: 78yo M for Hernia Umbilical Reducible with mesh, Wide Local Excision face/nose Skin cancer, 11/09/242023 w/u with [facility] Cardiology for CP negative and prn f/u only Anesthesia Pre-Procedure Meds Is the patient on any of the following meds?: GLP1/DPP4 and SGLT2 Inhib PMFSH Active Problems Active Problems: All Active Problems Long-term current use of proton pump inhibitor therapy (Acute) Pyrosis (Acute) Skin cancer of nose (Acute) Umbilical hernia (Acute) Sebaceous cyst (Acute) Seborrheic keratosis (Acute) Neuropathy (Acute) Heart palpitations (Acute) Precordial chest pain (Acute) Biliary dyskinesia (Acute) Umbilical hernia (Acute) Abnormal abdominal ultrasound (Acute) Weight loss (Acute) Epigastric pain (Acute) Dysuria (Acute) Sebaceous cyst (Acute) Lipoma (Acute) Lumbar degenerative disc disease (Acute) Lower urinary tract symptoms (Acute) Diverticulosis (Acute) History of colon polyps (Acute) Hypogonadism in male (Acute) BPH (benign prostatic hyperplasia) (Acute) Gout (Acute) Diabetes (Acute) Tubular adenoma (Acute) Hypogonadism in male (Acute) Anemia (Chronic) Colonoscopy planned (Acute) Joint pain (Acute) Elevated rheumatoid factor (Acute) Barretts esophagus (Acute) Right knee pain (Acute) Effusion, right knee (Acute) Chronic gout of right knee (Acute) Chronic constipation (Acute) Acid reflux (Acute) Past Medical History Medical History Urinary incontinence Chronic constipation Diabetes COVID-19 vaccine series started History of depression Ambulates with cane Eosinophilia Leukocytosis Rheumatoid arthritis Normocytic anemia Family History Family History Mother Diabetes Father No problems noted. Family history of problems with anesthesia: No Surgical History Surgical History History of esophagogastroduodenoscopy (EGD) History of cataract extraction History of back surgery Acid reflux History of colonoscopy History of surgical removal of lesion History of Problems with Anesthesia: No Social History Social History Household Members: Spouse Housing: House Are you a primary care technician to a significant other at home: No Do you presently have visiting nurse or other home services: No 75 years or older and lives alone: No Alcohol intake: never Comment: counts correct Patient Tobacco Use Status: Former Tobacco user e-Cigarette/Vaping Use: Never Used service: No Current occupational status: retired Current occupation: rt handed Meds Allergies Allergy/AdvReac Type Severity Reaction Status Date / Time No Known Allergies Allergy Verified 11/07/24 11:17 Home Medications ?Medication ?Instructions ?Recorded ?Confirmed ?Last Taken ?Type blood sugar diagnostic #10 ea 07/23/20 09/20/24 01/19/23 History lisinopril 40 mg tablet 40 mg PO DAILY 07/23/20 11/07/24 01/19/23 History pravastatin 20 mg tablet 20 mg PO DAILY 07/23/20 11/07/24 01/19/23 History buspirone 5 mg tablet 5 mg PO TID 10/01/21 11/07/24 01/19/23 History amlodipine 10 mg tablet 10 mg PO DAILY 05/05/22 11/07/24 01/19/23 History aspirin 81 mg tablet,delayed 81 mg PO DAILY 07/20/22 11/07/24 01/12/23 History release meclizine 25 mg tablet 25 mg PO TID PRN Dizziness 01/18/23 11/07/24 01/19/23 History insulin degludec 100 unit/mL (3 14 unit subcut BEDTIME 07/24/24 11/07/24 Unknown History mL) subcutaneous pen (Tresiba FlexTouch U-100 insulin) empagliflozin 10 mg tablet 10 mg PO DAILY 09/20/24 11/07/24 11/05/24 History (Jardiance) flash glucose sensor (FreeStyle #1 ea 09/20/24 Unknown History Grace 2 Sensor kit) ferrous sulfate 325 mg (65 mg 325 mg PO QAM 09/27/24 11/07/24 Unknown History iron) tablet multivitamin 1 tab PO QAM 09/27/24 11/07/24 Unknown History tirzepatide 5 mg/0.5 mL 5 mg subcut .QMONDAY 09/27/24 11/07/24 10/30/24 History subcutaneous pen injector (Mounjaro) semaglutide 0.25 mg or 0.5 mg (2 0.5 mg subcut QWEEK 11/08/24 Unknown History mg/3 mL) subcutaneous pen injector (Ozempic) Exam Height,Weight and Vital Signs: Height 4 ft 11 in Weight 62.596 kg Pertinent Lab Results Pertinent Lab Results: Laboratory Tests 08/18/24 08:28 WBC 11.2 H Hgb 13.3 L Hct 40.8 L Plt Count 297 Sodium 142 Potassium 4.2 Chloride 108 Carbon Dioxide 27 BUN 22 H Creatinine 1.24 Narrative Narrative: [facility]OLTER 2023 * Total monitoring time 3 days. * Underlying rhythm is sinus with an average rate of 69/Min. * Rare supraventricular ectopy. * Rare ventricular ectopy. * No sustained arrhythmias. * No significant pauses or high-grade AV blocks. * Patient markers used in association with sinus rhythm. * No diary events. ECHO 2023 Conclusions: - 1. Normal LV systolic function with LVEF of 60-65% with impaired relaxation filling pattern 2. Trivial aortic regurgitation 3. Normal RV systolic pressure 4. Upper limits of normal ascending aortic size 5. No gross pericardial effusion NUC STRESS 2023 NM cardiolite stress test IMPRESSION: 1. Myocardial perfusion imaging study shows no clear evidence of any ischemia or infarction. Fixed inferior perfusion defect suspected to be from diaphragmatic attenuation artifact. 2. Gated LVEF is 62% during stress and >70% during rest. 3. Transient ischemic dilatation not present. EKG component of the test reported separately. EKG 01/2024 EKG Details: EKG with sinus rhythm at 66/Min; voltage criteria for LVH; borderline OK at 202 millisecond; normal corrected QT. Assessment and Plan Assessment Anesthesia Assessment: Chart Reviewed Final Anesthetic Review Family History of Problems with Anesthesia: No History of Problems with Anesthesia: No
--- NOTE | 2024-10-12 14:07 | P.HPSUR_ITS ---
Pre-Procedural Eval Section A - 24 Hr Update-Section A only Date of Service: 10/13/24 The patient is an INPATIENT: No Changes since office visit: No Cold of Flu in the past 2 weeks, No New Medical Problems, No Changes in Medication and No Patient answered all questions Section B - Complete if H&P > 30 days Chief Complaint: Umbilical hernia without obstruction or gangrene Allergies: Allergies Allergy/AdvReac Type Severity Reaction Status Date / Time No Known Allergies Allergy Verified 09/27/24 13:54 Review of Systems Sugical H&P ROS: Negative: Constitution, Cardiovascular, Respiratory, Neurological, Psychiatric, Hem-Onc, Allergic/Immunologic, Gastrointestinal, Genitourinary, Musculoskeletal, Integumentary, Endocrine and Ey es/Ears/Nose/Throat Exam Surgical H&P Exam: Normal: HEENT, Normal: Heart, Normal: Lungs, Normal: Extremities, Normal: Abdomen, Normal: Skin and Normal: Neurological Plan I have reviewed the history and physical and performed a pertinent physical examination on my patient. No changes have occurred unless specified. Time Spent With Patient Time: Total time managing care of this patient today ____ minutes.
[2024-11-07 11:18] VITALS: BMI 28.0
--- NOTE | 2024-11-08 09:42 | MHC.SHP ---
Pre-Procedural Eval Section A - 24 Hr Update-Section A only Date of Service: 11/09/24 The patient is an INPATIENT: No Changes since office visit: No Cold of Flu in the past 2 weeks, No New Medical Problems, No Changes in Medication and No Patient answered all questions Section B - Complete if H&P > 30 days Chief Complaint: Umbilical hernia without obstruction or gangrene Allergies: Allergies Allergy/AdvReac Type Severity Reaction Status Date / Time No Known Allergies Allergy Verified 11/07/24 11:17 Plan I have reviewed the history and physical and performed a pertinent physical examination on my patient. No changes have occurred unless specified. Time Spent With Patient Time: Total time managing care of this patient today ____ minutes.
[2024-11-09 06:23] VITALS: BP 164/64; PULSE 57; RESP 16; TEMP 36.9; O2SAT 94; BMI 28.0
[2024-11-09 06:35] LABS: Glucose, Whole Blood 164 mg/dL (60-115)
[2024-11-09] MEDS: Lactated Ringers 1,000 ML 100 ML IVCONT (06:47)
--- NOTE | 2024-11-09 07:14 | HO.ANESPROP2 ---
[facility] Active Problems Active Problems: All Active Problems Long-term current use of proton pump inhibitor therapy (Acute) Pyrosis (Acute) Skin cancer of nose (Acute) Umbilical hernia (Acute) Sebaceous cyst (Acute) Seborrheic keratosis (Acute) Neuropathy (Acute) Heart palpitations (Acute) Precordial chest pain (Acute) Biliary dyskinesia (Acute) Umbilical hernia (Acute) Abnormal abdominal ultrasound (Acute) Weight loss (Acute) Epigastric pain (Acute) Dysuria (Acute) Sebaceous cyst (Acute) Lipoma (Acute) Lumbar degenerative disc disease (Acute) Lower urinary tract symptoms (Acute) Diverticulosis (Acute) History of colon polyps (Acute) Hypogonadism in male (Acute) BPH (benign prostatic hyperplasia) (Acute) Gout (Acute) Tubular adenoma (Acute) Chronic gout of right knee (Acute) Effusion, right knee (Acute) Right knee pain (Acute) Barretts esophagus (Acute) Elevated rheumatoid factor (Acute) Joint pain (Acute) Colonoscopy planned (Acute) Anemia (Chronic) Hypogonadism in male (Acute) Diabetes (Acute) Chronic constipation (Acute) Acid reflux (Acute) Past Medical History Medical History Urinary incontinence Chronic constipation Diabetes COVID-19 vaccine series started History of depression Ambulates with cane Eosinophilia Leukocytosis Rheumatoid arthritis Normocytic anemia Functional capacity: independent ambulation Family History Family History Mother Diabetes Father No problems noted. Family history of problems with anesthesia: No Surgical History Surgical History History of esophagogastroduodenoscopy (EGD) History of cataract extraction History of back surgery Acid reflux History of colonoscopy History of surgical removal of lesion History of Problems with Anesthesia: No Social History Social History Household Members: Spouse Housing: House Are you a primary neonatal intensive care unit nurse to a significant other at home: No Do you presently have visiting nurse or other home services: No Alcohol intake: never Patient Tobacco Use Status: Former Tobacco user Smoked in Last 30 Days: No e-Cigarette/Vaping Use: Never Used Use of substances other than those prescribed or required for medical reasons: No Have you been hit, kicked, punched, or otherwise hurt by someone within the past year? If so, by whom?: No Are you DNR?: No Advance Directives: No Advance Directives Information Provided: Yes Advance Directives on File: No Nutrition Risks: Surgical patient >75years Poor oral hygiene: No service: No Current occupational status: retired Current occupation: rt handed Meds Allergies Allergy/AdvReac Type Severity Reaction Status Date / Time No Known Allergies Allergy Verified 11/07/24 11:17 Active Medications: Current Medications Lactated Ringer's (Lr) 1,000 mls @ 100 mls/hr IVCONT .Q10H DAVID Last Admin: 11/09/24 06:47 Dose: 100 mls/hr Home Medications ?Medication ?Instructions ?Recorded ?Confirmed ?Last Taken ?Type blood sugar diagnostic #10 ea 07/23/20 09/20/24 01/19/23 History lisinopril 40 mg tablet 40 mg PO DAILY 07/23/20 11/07/24 01/19/23 History pravastatin 20 mg tablet 20 mg PO DAILY 07/23/20 11/07/24 01/19/23 History buspirone 5 mg tablet 5 mg PO TID 10/01/21 11/07/24 01/19/23 History amlodipine 10 mg tablet 10 mg PO DAILY 05/05/22 11/07/24 01/19/23 History aspirin 81 mg tablet,delayed 81 mg PO DAILY 07/20/22 11/07/24 01/12/23 History release meclizine 25 mg tablet 25 mg PO TID PRN Dizziness 01/18/23 11/07/24 01/19/23 History insulin degludec 100 unit/mL (3 14 unit subcut BEDTIME 07/24/24 11/07/24 Unknown History mL) subcutaneous pen (Tresiba FlexTouch U-100 insulin) empagliflozin 10 mg tablet 10 mg PO DAILY 09/20/24 11/07/24 11/05/24 History (Jardiance) flash glucose sensor (FreeStyle #1 ea 09/20/24 Unknown History Grace 2 Sensor kit) ferrous sulfate 325 mg (65 mg 325 mg PO QAM 09/27/24 11/07/24 Unknown History iron) tablet multivitamin 1 tab PO QAM 09/27/24 11/07/24 Unknown History tirzepatide 5 mg/0.5 mL 5 mg subcut .QMONDAY 09/27/24 11/07/24 10/30/24 History subcutaneous pen injector (Charlesunquyenro) semaglutide 0.25 mg or 0.5 mg (2 0.5 mg subcut QWEEK 11/08/24 Unknown History mg/3 mL) subcutaneous pen injector (Ozempic) Exam Height,Weight and Vital Signs: Height 4 ft 11 in Weight 63 kg Last Vital Signs Temp 98.4 F 11/09/24 06:23 Pulse 57 11/09/24 06:23 Resp 16 11/09/24 06:23 BP 164/64 H 11/09/24 06:23 Pulse Ox 94 11/09/24 06:23 O2 Del Method Room Air 11/09/24 06:23 Pertinent Lab Results Pertinent Lab Results: Laboratory Tests 11/09/24 06:30 POC Glucose 164 H Airway Mallampati Class: III TM Dist: >3cm Neck ROM: Full Heart: RRR Lungs: CTA Assessment and Plan Assessment Anesthesia Assessment: Anesthesia Plan Discussed and Chart Reviewed Final Anesthetic Review Family History of Problems with Anesthesia: No History of Problems with Anesthesia: No NPO: Yes ASA Class: III Final Preanesthetic Review: Meds/Allgs Chart Reviewed and Anes Risks/Benef Reviewed Patient Risk: Intermediate Procedure Risk: Low Anesthetic Plan Anesthetic Plan: GA Disposition: Standard PACU
--- NOTE | 2024-11-09 07:31 | MHC.SHP ---
Pre-Procedural Eval Section A - 24 Hr Update-Section A only Date of Service: 11/09/24 Section B - Complete if H&P > 30 days Chief Complaint: Umbilical hernia without obstruction or gangrene Details of Present Illness: Unchanged Allergies: Allergies Allergy/AdvReac Type Severity Reaction Status Date / Time No Known Allergies Allergy Verified 11/07/24 11:17 Review of Systems Sugical H&P ROS: Negative: Constitution, Cardiovascular, Respiratory, Neurological, Psychiatric, Hem-Onc, Allergic/Immunologic, Gastrointestinal, Genitourinary, Musculoskeletal, Integumentary, Endocrine and Eyes/Ears/Nose/Throat Exam Surgical H&P Exam: Normal: HEENT, Normal: Heart, Normal: Lungs, Normal: Extremities, Normal: Abdomen, Normal: Skin and Normal: Neurological Plan I have reviewed the history and physical and performed a pertinent physical examination on my patient. No changes have occurred unless specified. Time Spent With Patient Time: Total time managing care of this patient today ____ minutes.
--- NOTE | 2024-11-09 08:06 | HO.ANESPROP2 ---
[facility] Active Problems Active Problems: All Active Problems Long-term current use of proton pump inhibitor therapy (Acute) Pyrosis (Acute) Skin cancer of nose (Acute) Umbilical hernia (Acute) Sebaceous cyst (Acute) Seborrheic keratosis (Acute) Neuropathy (Acute) Heart palpitations (Acute) Precordial chest pain (Acute) Biliary dyskinesia (Acute) Umbilical hernia (Acute) Abnormal abdominal ultrasound (Acute) Weight loss (Acute) Epigastric pain (Acute) Dysuria (Acute) Sebaceous cyst (Acute) Lipoma (Acute) Lumbar degenerative disc disease (Acute) Lower urinary tract symptoms (Acute) Diverticulosis (Acute) History of colon polyps (Acute) Hypogonadism in male (Acute) BPH (benign prostatic hyperplasia) (Acute) Gout (Acute) Tubular adenoma (Acute) Chronic gout of right knee (Acute) Effusion, right knee (Acute) Right knee pain (Acute) Barretts esophagus (Acute) Elevated rheumatoid factor (Acute) Joint pain (Acute) Colonoscopy planned (Acute) Anemia (Chronic) Hypogonadism in male (Acute) Diabetes (Acute) Chronic constipation (Acute) Acid reflux (Acute) Past Medical History Medical History Urinary incontinence Chronic constipation Diabetes COVID-19 vaccine series started History of depression Ambulates with cane Eosinophilia Leukocytosis Rheumatoid arthritis Normocytic anemia Functional capacity: independent ambulation Family History Family History Mother Diabetes Father No problems noted. Family history of problems with anesthesia: No Surgical History Surgical History History of esophagogastroduodenoscopy (EGD) History of cataract extraction History of back surgery Acid reflux History of colonoscopy History of surgical removal of lesion History of Problems with Anesthesia: No Social History Social History Household Members: Spouse Housing: House Are you a primary director of medicare to a significant other at home: No Do you presently have visiting nurse or other home services: No Alcohol intake: never Patient Tobacco Use Status: Former Tobacco user Smoked in Last 30 Days: No e-Cigarette/Vaping Use: Never Used Use of substances other than those prescribed or required for medical reasons: No Have you been hit, kicked, punched, or otherwise hurt by someone within the past year? If so, by whom?: No Are you DNR?: No Advance Directives: No Advance Directives Information Provided: Yes Advance Directives on File: No Nutrition Risks: Surgical patient >75years Poor oral hygiene: No service: No Current occupational status: retired Current occupation: rt handed Meds Allergies Allergy/AdvReac Type Severity Reaction Status Date / Time No Known Allergies Allergy Verified 11/07/24 11:17 Active Medications: Current Medications Fentanyl (Fentanyl Citrate/Pf 100 Mcg/2 Ml Vial) 25 mcg IVPUSH Q5M PRN PRN Reason: Pain, Moderate to Severe (Pain Scale 4-10) Stop: 11/09/24 13:18 Lactated Ringer's (Lr) 1,000 mls @ 100 mls/hr IVCONT .Q10H DAVID Last Admin: 11/09/24 06:47 Dose: 100 mls/hr Naloxone HCl (Naloxone Hcl 0.4 Mg/Ml Vial) 0.04 mg IVPUSH Q5M PRN PRN Reason: Excessive sedation or RR < 8 Ondansetron HCl (Ondansetron Hcl 4 Mg/2 Ml Vial) 4 mg IVPUSH ONCE PRN PRN Reason: Nausea and Vomiting Stop: 11/09/24 13:18 Home Medications ?Medication ?Instructions ?Recorded ?Confirmed ?Last Taken ?Type blood sugar diagnostic #10 ea 07/23/20 09/20/24 01/19/23 History lisinopril 40 mg tablet 40 mg PO DAILY 07/23/20 11/07/24 01/19/23 History pravastatin 20 mg tablet 20 mg PO DAILY 07/23/20 11/07/24 01/19/23 History buspirone 5 mg tablet 5 mg PO TID 10/01/21 11/07/24 01/19/23 History amlodipine 10 mg tablet 10 mg PO DAILY 05/05/22 11/07/24 01/19/23 History aspirin 81 mg tablet,delayed 81 mg PO DAILY 07/20/22 11/07/24 01/12/23 History release meclizine 25 mg tablet 25 mg PO TID PRN Dizziness 01/18/23 11/07/24 01/19/23 History insulin degludec 100 unit/mL (3 14 unit subcut BEDTIME 07/24/24 11/07/24 Unknown History mL) subcutaneous pen (Tresiba FlexTouch U-100 insulin) empagliflozin 10 mg tablet 10 mg PO DAILY 09/20/24 11/07/24 11/05/24 History (Jardiance) flash glucose sensor (FreeStyle #1 ea 09/20/24 Unknown History Grace 2 Sensor kit) ferrous sulfate 325 mg (65 mg 325 mg PO QAM 09/27/24 11/07/24 Unknown History iron) tablet multivitamin 1 tab PO QAM 09/27/24 11/07/24 Unknown History tirzepatide 5 mg/0.5 mL 5 mg subcut .QMONDAY 09/27/24 11/07/24 10/30/24 History subcutaneous pen injector (Adri) semaglutide 0.25 mg or 0.5 mg (2 0.5 mg subcut QWEEK 11/08/24 Unknown History mg/3 mL) subcutaneous pen injector (Ozempic) Exam Height,Weight and Vital Signs: Height 4 ft 11 in Weight 63 kg Last Vital Signs Temp 98.4 F 11/09/24 06:23 Pulse 57 11/09/24 06:23 Resp 16 11/09/24 06:23 BP 164/64 H 11/09/24 06:23 Pulse Ox 94 11/09/24 06:23 O2 Del Method Room Air 11/09/24 06:23 Pertinent Lab Results Pertinent Lab Results: Laboratory Tests 11/09/24 06:30 POC Glucose 164 H Airway Mallampati Class: III TM Dist: >3cm Neck ROM: Full Heart: RRR Lungs: CTA Assessment and Plan Assessment Anesthesia Assessment: Anesthesia Plan Discussed and Chart Reviewed Final Anesthetic Review Family History of Problems with Anesthesia: No History of Problems with Anesthesia: No NPO: Yes ASA Class: III Final Preanesthetic Review: Meds/Allgs Chart Reviewed, Consent Obtained/Reviewed and Anes Risks/Benef Reviewed Patient Risk: Intermediate Procedure Risk: Low Anesthetic Plan Anesthetic Plan: GA Disposition: Standard PACU
[2024-11-09 08:25] VITALS: BP 116/61; PULSE 60; RESP 16; TEMP 36.5; O2SAT 93
[2024-11-09 08:30] VITALS: BP 118/65; PULSE 51; RESP 16; O2SAT 92
[2024-11-09 08:35] VITALS: BP 112/60; PULSE 53; RESP 16; O2SAT 93
[2024-11-09 08:40] VITALS: BP 120/57; PULSE 53; RESP 16; O2SAT 92
[2024-11-09 08:55] VITALS: BP 128/59; PULSE 52; RESP 16; TEMP 36.3; O2SAT 95
--- NOTE | 2024-11-09 09:11 | W.PM.OPN ---
Operative Note Operative Note Date of Service: 11/09/24 Narrative: Preoperative diagnosis: [] 1. Symptomatic incarcerated umbilical hernia 2. Left nose skin cancer Postop diagnosis: [] The same Procedure [] 1. Open umbilical herniorrhaphy with Bard mesh 2. Wide local excision left nose skin cancer Surgeon: [] Kermit Production Foreman: [] Keyshawn Type of Anesthesia: [] Mac Indication for surgery: [] Incarcerated umbilical hernia measuring roughly 3 cm in size with omental contents. Left nose lesion underwent original tangential biopsy in the office. The specimen measured roughly 1 x 1 cm. Findings: [] Patient brought to the operating room, placed on operative table supine position, after an adequate level of MAC anesthesia was induced, initially the patient's abdomen was prepped and draped in usual sterile fashion using a supraumbilical curvilinear incision, this carried down through skin, subcutaneous tissue, where hernia sac was identified and circumferentially dissected away from the posterior aspect of the umbilicus down through the fascia. Sac was opened and incarcerated omental contents were reduced. Redundant sac amputated. Fascia margins were circumferentially cleared. Inappropriately sized Bard mesh was placed in this defect and the superficial layer of the mesh was circumferentially sutured to the surrounding fascia using interrupted 0 Ethibond suture. At completion of the procedure, mesh was in good position with no gaps or tension. Wound was irrigated, secured hemostasis, and closed in the following manner; posterior aspect of the umbilicus was tacked to the wound floor using interrupted 3-0 Vicryl sutures. Skin was closed using interrupted inverted dermal 3-0 Vicryl sutures followed by Steri-Strips and sterile dressings. Wound was infiltrated at the beginning and at the end with 0.5% Marcaine/1% lidocaine. Sponge, needle, and instrument counts for this portion of procedure were reported correct. EBL minimal. Next the left no/face area was prepped and draped in usual sterile fashion and again using 1% lidocaine 0.5% Marcaine the premarked area was anesthetized and a transverse by elliptical incision made around to grossly clear margins of the previously biopsy left nose lesion. Specimen sent to pathology. Wound was irrigated, secured hemostasis, and closed using interrupted 5 0 nylon sutures followed by bacitracin and sterile dressing. Sponge, needle, and instrument counts reported correct. Patient tolerated the procedure well and emerged from anesthesia stable condition. EBL minimal
--- NOTE | 2024-11-09 12:36 | HO.POSTANES ---
Post Anesthesia Evaluation Post Anesthesia Evaluation Date of Service: 11/09/24 Vital Signs: Vital Signs Temp Pulse Resp BP Pulse Ox O2 Del Method 11/09/24 08:55 97.4 F 52 16 128/59 L 95 Room Air 11/09/24 08:40 53 16 120/57 L 92 Room Air 11/09/24 08:35 53 16 112/60 93 Room Air 11/09/24 08:30 51 16 118/65 92 Room Air 11/09/24 08:25 97.7 F 60 16 116/61 93 Room Air 11/09/24 06:23 98.4 F 57 16 164/64 H 94 Room Air Anesthesia: General LMA Mental Status: Awake Pain Control: Satisfactory Nausea/Vomiting: None Hydration: Adequate Anesthesia-Related Issues: No Anes. Related Issues
== END 2024-11-09 11:17 | disposition home or self-care (01) ==
PROVIDERS: PCP Internal Medicine Geriatric Medicine; Visit Provider Surgery
PROC: (CPT 49592; principal; 2024-11-09 07:30)
PROC: (CPT 49592; 2024-11-09 07:30)
DX: K42.0 Umbilical hernia with obstruction, without gangrene (principal); C44.301 Unspecified malignant neoplasm of skin of nose; L90.5 Scar conditions and fibrosis of skin; D72.10 Eosinophilia, unspecified; D64.9 Anemia, unspecified; E11.9 Type 2 diabetes mellitus without complications; M06.9 Rheumatoid arthritis, unspecified; Z79.4 Long term (current) use of insulin; Z79.85 Long-term (current) use of injectable non-insulin antidiabetic drugs; Z99.89 Dependence on other enabling machines and devices; Z79.899 Other long term (current) drug therapy; Z87.891 Personal history of nicotine dependence
CPT/HCPCS: 49592; 11601; 82947; 88304; 88305; C1781; J0690; J1100; J2003; J2250; J2704; J2795; J3010

== ENCOUNTER → 2024-11-09 05:42 | Outpatient (BNV) | payer OTHER, SELFPAY | PROVIDERS: PCP Internal Medicine Geriatric Medicine; Visit Provider Surgery | DX: K42.0 Umbilical hernia with obstruction, without gangrene (principal); C44.311 Basal cell carcinoma of skin of nose | CPT/HCPCS: 11641; 49594 ==

== ENCOUNTER 2024-11-20 12:50 | Outpatient (AMB) | payer OTHER, SELFPAY ==
--- NOTE | 2024-11-20 12:51 | MHC.OFFVIS ---
Intake Visit Reasons: s/p umb hernia w/mesh, WLE face skin CA Intake Note: S/P umbil. hernia w/mesh, WLE Lt nasal sidewall skin CA. Reports incisions healing well. Patient c/o: 3 sutures removed without incident. Surgery: 11-09-2024 Bag Hanger Required: No Accompanied by: Self / Same As Patient Allergies No Known Allergies Allergy (Verified 11/20/24 13:00) HPI Comments Details: Patient presents for follow-up status post umbilical hernia and left nose lesion excision. He is doing well. Tolerating diet. Having regular bowel habits. Increasing activity level. Minimal incisional discomfort.. Pathology was reviewed and clear margins and nose lesion [facility] Medical History Urinary incontinence Chronic constipation Diabetes COVID-19 vaccine series started History of depression Ambulates with cane Eosinophilia Leukocytosis Rheumatoid arthritis Normocytic anemia Surgical History History of esophagogastroduodenoscopy (EGD) History of cataract extraction History of back surgery Acid reflux History of colonoscopy History of surgical removal of lesion Family History Mother Diabetes Father No problems noted. Social History Household Members: Spouse Housing: House Are you a primary respiratory care program director to a significant other at home: No Do you presently have visiting nurse or other home services: No 75 years or older and lives alone: No Alcohol intake: never Comment: counts correct Patient Tobacco Use Status: Former Tobacco user e-Cigarette/Vaping Use: Never Used service: No Current occupational status: retired Current occupation: rt handed Physical Exam HEENT Other: Sutures uneventfully removed. Well healed left nose incision GI Other: Abdomen moderately corpulent, benign. Incision clean dry and intact healing well Assessment & Plan Assessment & Plan (1) Status post umbilical hernia repair, follow-up exam: Code(s): Z09 - Encounter for follow-up examination after completed treatment for conditions other than malignant neoplasm Category: Medical (2) Status post surgical removal of malignant neoplasm of skin: Code(s): Z98.890 - Other specified postprocedural states Category: Medical Plan Patient was been given local instructions including avoiding strenuous activities, and will otherwise follow-up p.r.n.. All questions answered Coding Level of Care Code Global (03111) Diagnoses Status post umbilical hernia repair, follow-up exam Z09 Status post surgical removal of malignant neoplasm of skin Z98.890
--- OUTSIDE RECORDS SUMMARY | 2024-11-20 14:55 | XMS_ITS | Encounter Summary ---
Author Organization [employer] Address [address] [place] [address] [address]t [place] [address] Care Team Providers Care Utility Specialist Name Role Phone Name, Rodri WINN Primary Care Provider Ana Pavon PharmD Unavailable [phone] Reason for Visit * Reason Comments Med Refill Encounter Details Date Type Department Care Team ([facility] Contact Info) Description 03/24/[address] [facility] MEDICINE [address] [place], [place] [phone] Name, MD Rodri [address] [place] [address] Social History Tobacco Use Types Packs/Day Years [...] Upcoming Encounters Date Type Department Care Team ([facility] Contact Info) Description 11/30/2024 10:30 AM EDT Office Visit [facility] MEDICINE [address] [place] [address] Name, MD Rodri [address] [place] [address] 12/14/2024 3:00 PM EDT Clinical Support [facility] CHC DIABETES/NTRN [address] [place], [place] [phone] [address] [place] [address] 12/22/2024 11:00 AM EDT Medication Management [facility] MEDICINE [address] [place] [address] Ana Pavon PharmD [address] [place] [address] documented as of this encounter Visit Diagnoses Not on filedocumented in this encounter Care Teams Utility Specialist Relationship Specialty Start Date End Date Name, MD Rodri [address] [place] [address] PCP - General Family Medicine 09/24/15 Ana Pavon PharmD [address] [place] [address] [phone] Pharmacist Internal Medicine 04/28/23 [facility] 09/01/24 documented as of this encounter
--- OUTSIDE RECORDS SUMMARY | 2024-11-20 14:55 | XMS_ITS | Encounter Summary ---
Author Organization [employer] Address [address] [place] [address] 7t [place] [address] Care Team Providers Care American Sign Language Interpreter Name Role Phone Name, Rodri WINN Primary Care Provider [phone] Ana Pavon PharmD Unavailable [phone] Reason for Visit * Reason Comments Med Refill Encounter Details Date Type Department Care Team ([facility] st Contact Info) Description 04/07/2023 Refill [facility] MEDICINE [address] [place], [place] [phone] Name, MD Rodri [address] [place] [address] Social History Tobacco Use Types Packs/Day Years [...] 10:49 AM EDT Med request came from [facility] who pt uses as a secondary pharmacy. [...] Care Team (Late st Contact Info) Description 11/30/2024 10:30 AM EDT Office Visit [facility] MEDICINE [address] [place] [address] Name, MD Rodri [address] [place] [address] 12/14/2024 3:00 PM EDT Clinical Support [facility] DIABETES/NTRN [address] [place], [place] [phone] Nguyen Rags[address], RD [address] [place] [address] 12/22/2024 11:00 AM EDT Medication Management [address] [address] Ana Pavon, PharmD [address] [place] [address] documented as of this encounter Visit Diagnoses Not on filedocumented in this encounter Care Teams American Sign Language Interpreter Relationship Specialty Start Date End Date Rodri Lund MD [address] [place] [address] PCP - General Family Medicine 09/24/15 Ana Pavon, PharmD [address] [place] [address] Pharmacist Internal Medicine 04/28/23 [facility] 09/01/24 documented as of this encounter
--- OUTSIDE RECORDS SUMMARY | 2024-11-20 14:55 | XMS_ITS | Encounter Summary ---
Author Organization [employer] Address [address] [facility] 7t [place] [address] Care Team Providers Care Local Company Tanker Driver Name Role Phone Name, Rodri WINN Primary Care Provider [phone] Ana Pavon PharmD Unavailable [phone] Encounter Details Date Type Department Care Team (Late st Contact Info) Description 11/09/2024 Orders Only GENERIC EXTERNAL DATA DEPARTMENT Provider, Generic External Data Social History Tobacco Use Types Packs/Day Years [...] Description 11/30/2024 10:30 AM EDT Office Visit [facility] MEDICINE [address] [place] [phone] Name, MD Rodri [address] [place] [address] 12/14/2024 3:00 PM EDT Clinical Support [facility] CHC DIABETES/NTRN [address] [place], [place] [phone] [address] [place] [address] 12/22/2024 11:00 AM EDT Medication Management [address] [address] Ana Pavon, PharmD [address] [place] [address] documented as of this encounter Goals Goal Patient Goal Type Associated Problems Recent Progress Patient-Stated? Author Hemoglobin A1c < 7.5 Result Component 7.6( 11:35 AM EST) No Ana Pavon, PharmD Record your blood sugar as directed Result Component No David Pavonyssa, PharmD Note: Use CGM, ensuring sensor is scanned at least once every 8 hours to capture 24H data. Check BG manually, as directed. documented as of this encounter Procedures Procedure Name Priority Date/Time Associated Diagnosis Comments GROSS AND MICROSCOPIC LEVEL 3 Routine 11/09/2024 8:36 AM EST GLUCOSE, WHOLE BLOOD Routine 11/09/2024 6:30 AM EST documented in this encounter Results * Gross and Microscopic Level 3 (11/09/2024 8:36 AM EST) 11/09/2024 8:36 AM EST 11/09/2024 9:57 AM EST [facility] LABS - 11/10/2024 1:16 PM EST ----- ------- Name: Francisco Lorenzo ?Age/Sex: 79/M ? : 1945 Unit#: [id number] ?? Attend Dr: Carlton Carmen MD ?Re11/09/24 ?Status: DEP SDC ? Location: HO.SSS ?Disch: ? ----- ------- SPEC : [id number] ? RECD: 11/09/24-956 ? STATUS: ??SOUT ? REQ NUM: [id number] ? ARIEL: 11/09/240836 ? SUBM DR: Carlton Carmen MD ? ENTERED: ??11/09/24-1007 ?SP TYPE: Surgical ? OTHR DR: Name,Rodri WINN ? ORDERED: ??Gross Micro L3 ? Diagnosis ?? Nose, left, re-excision: ??Skin with dermal scar and solar elastosis; negative for ?? residual carcinoma. ? Comment: ??The dermal scar appears completely excised. ?Clinical History Skin cancer ?Microscopic Description Microscopic sections reviewed. ? Material Received ?? Hx of left nose skin cancer re-excision ? Gross Description Received in formalin labeled ?history of left nose skin cancer re- excision? is a 0.7 x 0.5 cm teardrop-shaped portion of razo skin excised to a maximum depth 0.25 cm. ??The skin surface is centrally granular and keratotic puckered and retracted over an area measuring 0.3 x 0.3 cm. ??The margins are inked and the specimen is serially sectioned to reveal homogeneous lagos-white fibrous dermal tissue. ??The specimen is entirely submitted in cassettes A1-A3 with cassettes A1 and A3 containing the tip portions. CEDS Copies To: ?? Name,Rodri WINN ?? [address] ?? [place] [address] ?? [phone] ?? Carlton Carmen MD ?? [facility] General Surgeons ?? [address] ?? [place] [address] ?? [phone] ?? [email or web address] ? CONTINUED ON NEXT PAGE ----- ------- Name: Francisco Lorenzo ?Age/Sex: 79/M ? : 1945 Unit#: [id number] ?? Attend Dr: Carlton Carmen MD ?Re11/09/24 ?Status: DEP SDC ? Location: HO.SSS ?Disch: ? ----- ------- SPEC : [id number] ? RECD: 11/09/24 ? STATUS: ??SOUT ? REQ NUM: [id number] ? ARIEL: 11/09/24-835 ? SUBM DR: Carlton Carmen MD ? ENTERED: ??11/09/24-1007 ?SP TYPE: Surgical ? OTHR : Name,Rodri WINN ? ORDERED: ??Gross Micro L3 ? ----- ------- Signed (signature on file) Ramana Tadeo MD 11/10/246 ? ----- ------- ? END OF REPORT ? us Generic External Data Provider LAB CYTOLOGY TARUN SALVADOR Final Result [facility] [address] [place] [address] [phone] * (ABNORMAL) Glucose, Whole Blood (11/09/2024 6:30 AM EST) Glucose, Whole Blood 164(H) 60 - 115 mg/dL [facility] Comment:METER #: [id number] 11/09/2024 6:30 AM EST 11/09/2024 6:34 AM EST us Generic External Data Provider LAB BLOOD ORDERAB LES Final Result [facility] [address] [place] [address] [phone] documented in this encounter Visit Diagnoses Not on filedocumented in this encounter Additional Health Concerns Assessment Noted Time PHQ-9 Depression Total Score: 0 10/15/19 24 10:57 AM EST documented as of this encounter Care Teams Local Company Tanker Driver Relationship Specialty Start Date End Date Name, MD Rodri [address] [place] [address] PCP - General Family Medicine 09/24/15 Ana Pavon, Mary [address] [place] [address] Pharmacist Internal Medicine 04/28/23 [facility] 09/01/24 documented as of this encounter
--- OUTSIDE RECORDS SUMMARY | 2024-11-20 14:55 | XMS_ITS | Encounter Summary ---
Author Organization [employer] Address [address] [place] [address] 7t [place] [address] Care Team Providers Care Gas Plant Dispatcher Name Role Phone Name, Rodri WINN Primary Care Provider [phone] Ana Pavon PharmD Unavailable [phone] Encounter Details Date Type Department Care Team (Latest Contact Info) Description 02/25/2021 Abstract [facility] CONVERSIONS Dental, Provider, DDS Social History Tobacco [...] Care Team ( st Contact Info) Description 11/30/2024 10:30 AM EDT Office Visit [facility] MEDICINE [address] [place] [address] Name, MD Rodri [address] [place] [address] 12/14/2024 3:00 PM EDT Clinical Support [facility] CHC DIABETES/NTRN [address] [place] [address] [place] [address] 12/22/2024 11:00 AM EDT Medication Management [facility] MEDICINE [address] [place] [address] Ana Pavon, PharmD [address] [place] [address] documented as of this encounter Visit Diagnoses Not on filedocumented in this encounter Care Teams Gas Plant Dispatcher Relationship Specialty Start Date End Date Name, MD Rodri [address] [place] [address] PCP - General Family Medicine 09/24/15 Ana Pavon PharmD [address] [place] [address] Pharmacist Internal Medicine 04/28/23 [facility] 09/01/24 documented as of this encounter
--- OUTSIDE RECORDS SUMMARY | 2024-11-20 14:55 | XMS_ITS | Encounter Summary ---
Author Organization [employer] Address [address] [place] [address] 7t [place] [address] Care Team Providers Care Medical Research Scientist Name Role Phone Name, Rodri WINN Primary Care Provider [phone] Ana Pavon PharmD Unavailable [phone] Encounter Details Date Type Department Care Team (Latest Contact Info) Description 06/25/2022 Abstract [facility] CONVERSIONS Dental, Provider, DDS Social History [...] Description 11/30/2024 10:30 AM EDT Office Visit [facility] MEDICINE [address] [place] [address] Name, MD Rodri [address] [place] [address] 12/14/2024 3:00 PM EDT Clinical Support [facility] CHC DIABETES/NTRN [address] [place] [address] [place] [address] 12/22/2024 11:00 AM EDT Medication Management [facility] MEDICINE [address] [place] [address] Ana Pavon, PharmD [address] [place] [address] documented as of this encounter Visit Diagnoses Not on filedocumented in this encounter Care Teams Medical Research Scientist Relationship Specialty Start Date End Date Name, MD Rodri [address] [place] [address] PCP - General Family Medicine 09/24/15 Ana Pavon PharmD [address] [place] [address] Pharmacist Internal Medicine 04/28/23 [facility] 09/01/24 documented as of this encounter
--- OUTSIDE RECORDS SUMMARY | 2024-11-20 14:55 | XMS_ITS | Clinical Summary ---
Author Organization [facility] Address [address] [address] Phone Care Team Providers Care Legal Collector Name Role Phone Name, Rodri WINN Primary Care Provider [phone] Allergies Active Allergy Reactions Criticality Noted Date [...] state 03/17/2012 05/11/2023 Depressive disorder 03/17/2012 05/11/2023 Immunizations Name Administration Dates Next Due Hepatitis [...] Office Visit [facility] [address] [address] Byron Rodas MD [address] [address] Health Maintenance Due Date Last Done Comments [...] Anatomical Region Laterality Modality Body Ultrasound Byron Rodas MD IMG US PROCEDURES Final Result from Last 3 Months Insurance [facility] ([id number]) [facility] ([id number]) LEONID [place]ER[place]NDO [id number] Care Teams Legal Collector Relationship Specialty Start Date End Date Name, MD Rodri [address] [place] [phone] PCP - General Internal Medicine 06/25/21
--- OUTSIDE RECORDS SUMMARY | 2024-11-20 14:55 | XMS_ITS | Encounter Summary ---
Author Organization [employer] Address [address] [facility] 7t [place] [address] Care Team Providers Care Block Setter Gypsum Name Role Phone Name, Rodri WINN Primary Care Provider [phone] Ana Pavon PharmD Unavailable [phone] Reason for Visit * Reason Comments Med Refill Encounter Details Date Type Department Care Team ([facility] st Contact Info) Description 11/19/2023 Refill [facility] [address] [place], [place] [phone] Name, MD Rodri [address] [place] [address] Social History Tobacco Use Types Packs/Day Years [...] Description 11/30/2024 10:30 AM EDT Office Visit [facility] [address] [place] [address] Name, MD Rodri [address] [place] [address] 12/14/2024 3:00 PM EDT Clinical Support [facility] DIABETES/NTRN [address] [place], [place] [phone] [address] [place] [address] 12/22/2024 11:00 AM EDT Medication Management [facility] [address] [place] [address] [phone] Ana Pavon, PharmD [address] [place] [address] documented as of this encounter Goals Goal [...] documented as of this encounter Care Teams Block Setter Gypsum Relationship Specialty Start Date End Date Name, MD Rodri [address] [place] [address] PCP - General Family Medicine 09/24/15 Ana Pvaon PharmD [address] [place] [address] Pharmacist Internal Medicine 04/28/23 [facility] 09/01/24 documented as of this encounter
--- OUTSIDE RECORDS SUMMARY | 2024-11-20 14:55 | XMS_ITS | Encounter Summary ---
Author Organization [employer] Address [address] [facility] 7t [place] [address] Care Team Providers Care Horn Player Name Role Phone Name, Rodri WINN Primary Care Provider [phone] Ana Pavon PharmD Unavailable [phone] Reason for Visit * Reason Comments Med Refill Encounter Details Date Type Department Care Team ([facility] st Contact Info) Description 11/10/2024 Refill [facility] [address] [place], [place] [phone] Name, MD Rodri [address] [place] [address] Social History Tobacco Use Types Packs/Day Years [...] Description 11/30/2024 10:30 AM EDT Office Visit [facility] [address] [place] [phone] Name, MD Rodri [address] [place] [address] 12/14/2024 3:00 PM EDT Clinical Support [facility] DIABETES/NTRN [address] [place], [place] [phone] [address] [place] [address] 12/22/2024 11:00 AM EDT Medication Management [facility] [address] [place] [address] Ana Pavon PharmD [address] [place] [address] documented as of this encounter Goals Goal [...] documented as of this encounter Care Teams Horn Player Relationship Specialty Start Date End Date Name, MD Rodri [address] [place] [address] PCP - General Family Medicine 09/24/15 Ana Pavon, Mary [address] [place] [address] Pharmacist Internal Medicine 04/28/23 [facility] 09/01/24 documented as of this encounter
--- OUTSIDE RECORDS SUMMARY | 2024-11-20 14:55 | XMS_ITS | Encounter Summary ---
Author Organization [employer] Address [address] [place] [address] 7t [place] [address] Care Team Providers Care Welder Production Line Arc Name Role Phone Name, Rodri WINN Primary Care Provider [phone] Ana Pavon PharmD Unavailable [phone] Reason for Visit * Reason Comments Med Refill Encounter Details Date Type Department Care Team (Late st Contact Info) Description 04/13/2023 Refill [facility] [address] [place] [address] [phone] NameRodri MD [address] [place] [address] [phone] Social History Tobacco Use Types Packs/Day Years [...] Department Care Team (Late Contact Info) Description 11/30/2024 10:30 AM EDT Office Visit [facility] [address] [place] [address] [phone] Rodri Lund MD [address] [place] [address] [phone] 12/14/2024 3:00 PM EDT Clinical Support [facility] DIABETES/NTRN [address] [place] [address] [address]ags[address], RD [address] [place] [address] 12/22/2024 11:00 AM EDT Medication Management [facility] [address] [place] [address] Ana Pavon PharmD [address] [place] [phone] documented as of this encounter Visit Diagnoses Not on filedocumented in this encounter Care Teams Welder Production Line Arc Relationship Specialty Start Date End Date Name, MD Rodri [address] [place] [phone] PCP - General Family Medicine 09/24/15 Ana Pavon, PharmD [address] [place] [phone] Pharmacist Internal Medicine 04/28/23 [facility] 09/01/24 documented as of this encounter
--- OUTSIDE RECORDS SUMMARY | 2024-11-20 14:55 | XMS_ITS | Encounter Summary ---
Author Organization [employer] Address [address] [facility] 7t [place] [address] Care Team Providers Care Anthropology Instructor Name Role Phone Name, Rodri WINN Primary Care Provider [phone] Ana Pavon PharmD Unavailable Reason for Visit * Reason Comments Med Refill Encounter Details Date Type Department Care Team ([facility] Contact Info) Description 06/23/2024 Refill [facility] [address] [place], [place] [phone] Name, MD Rodri [address] [place] [address] Social History Tobacco Use Types Packs/Day Years [...] Description 11/30/2024 10:30 AM EDT Office Visit [facility] [address] [place] [address] Name, MD Rodri [address] [place] [address] 12/14/2024 3:00 PM EDT Clinical Support [facility] DIABETES/NTRN [address] [place], [place] [phone] [address] [place] [address] 12/22/2024 11:00 AM EDT Medication Management [facility] [address] [place] [phone] Ana Pavon PharmD [address] [place] [phone] documented as of this encounter Goals Goal [...] documented as of this encounter Care Teams Anthropology Instructor Relationship Specialty Start Date End Date Name, MD Rodri [address] [place] [address] PCP - General Family Medicine 09/24/15 Ana Pavon, Mary [address] [place] [address] Pharmacist Internal Medicine 04/28/23 [facility] 09/01/24 documented as of this encounter
--- OUTSIDE RECORDS SUMMARY | 2024-11-20 14:56 | XMS_ITS | Encounter Summary ---
Author Organization [employer] Address [address] [place] [address] 7t [place] [address] Care Team Providers Care Site Project Manager Name Role Phone Name, Rodri WINN Primary Care Provider [phone] Ana Pavon PharmD Unavailable [phone] Encounter Details Date Type Department Care Team (Latest Contact Info) Description 08/23/2019 Abstract [facility] CONVERSIONS Dental, Provider, DDS Social History [...] Description 11/30/2024 10:30 AM EDT Office Visit [facility] [address] [place] [phone] Name, MD Rodri [address] [place] [address] 12/14/2024 3:00 PM EDT Clinical Support [facility] CHC DIABETES/NTRN [address] [place] [address] [place] [address] 12/22/2024 11:00 AM EDT Medication Management [facility] [address] [place] [phone] Ana Pavon, PharmD [address] [place] [address] documented as of this encounter Visit Diagnoses Not on filedocumented in this encounter Care Teams Site Project Manager Relationship Specialty Start Date End Date Name, MD Rodri [address] [place] [address] PCP - General Family Medicine 09/24/15 Ana Pavon PharmD [address] [place] [address] Pharmacist Internal Medicine 04/28/23 [facility] 09/01/24 documented as of this encounter
--- OUTSIDE RECORDS SUMMARY | 2024-11-20 14:56 | XMS_ITS | Clinical Summary ---
Author Organization [employer] Address [address] [place] [address] 7t [place] [address] Care Team Providers Care Telecommunications Consultant Name Role Phone Name, Rodri WINN Primary Care Provider [phone] Ana Pavon PharmD Unavailable [phone] Allergies No known active allergies Medications allopurinol (Zyloprim) 100 MG tablet Take 100 mg by mouth in the morning. 06/25/20 22 Active famotidine (Pepcid) 40 MG tablet Take 40 mg by mouth in the morning. 04/21/20 22 Active terazosin (Hytrin) 5 MG capsule Take 5 mg by mouth at bedtime. 03/02/20 23 Active Continuous Blood Gluc Soft Metals Hand Engraver (FreeStyle Grace 2 [place]) deviceIndicatio ns:Poorly controlled diabetes mellitus (CMS/HCC) Use to scan sensor at least every 8 hours, as directed, for CGM 1 each 04/28/20 23 Active insulin pen needle 32G x 4 mm miscIndications :Poorly controlled diabetes mellitus (CMS/HCC) Use to inject insulin 1 time daily 100 each 3 11/22/19 24 Active glucose blood (FreeStyle Precision Cosme Test) test stripIndication s:Type 2 diabetes mellitus with other specified complication, without long-term current use of insulin (CMS/HCC) Use to test blood sugar up to 3 times daily, as directed 100 each 5 11/22/19 24 Active Diclofenac Sodium 1 % gelIndications: Articular gout APPLY 2 GRAMS TOPICALLY FOUR TIMES A DAY (BULK) 100 g 5 11/23/19 24 Active Multiple Vitamin (Multivitamin) tablet Take 1 tablet by mouth in the morning. 11/23/19 24 Active Testosterone 1.62 % gel 02/11/20 24 Active Continuous Glucose Sensor (FreeStyle Grace 2 Sensor) miscIndications :Poorly controlled diabetes mellitus (CMS/HCC) Apply 1 sensor, as directed, every 14 days for CGM 2 each 05/26/20 Active TRUEplus Lancets 33G misc Use to test blood sugar up to 3 time(s) daily as directed 100 each 05/26/20 Active omeprazole (PriLOSEC) [address] capsule TAKE ONE CAPSULE BY MOUTH EVERY MORNING 90 capsule 1 06/06/20 24 Active FeroSul 325 (65 Fe) MG tablet TAKE ONE TABLET BY MOUTH EVERY MORNING 90 tablet 1 06/06/20 24 Active Jardiance 10 MG Take 10 mg by mouth in the morning. Active amLODIPine (Norvasc) 5 MG tabletIndicatio ns:Essential hypertension Take 1 tablet (5 mg) by mouth Once per day. 30 tablet 08/29/20 24 025 Active Tirzepatide (Mounjaro) 5 MG/0.5ML solution auto-injectorIn dications:Type 2 diabetes mellitus with other specified complication, with long-term current use of insulin ([facility]) Inject 5 mg under the skin 1 (one) time per week. 2 mL 08/29/20 24 Active aspirin 81 MG EC tabletIndicatio ns:Type 2 diabetes mellitus with other specified complication, without long-term current use of insulin ([facility]),High cholesterol Take 1 tablet (81 mg) by mouth Once per day. 90 tablet 3 11/07/19 25 Active insulin degludec (Tresiba FlexTouch) 100 UNIT/ML injectionIndica tions:Type 2 diabetes mellitus with other specified complication, without long-term current use of insulin ([facility]) Inject 16 Units under the skin Once daily. 15 mL 1 11/07/19 25 Active pravastatin (Pravachol) 20 MG tabletIndicatio ns:Type 2 diabetes mellitus with other specified complication, without long-term current use of insulin ([facility]),High cholesterol Take 1 tablet (20 mg) by mouth Once daily. 90 tablet 3 11/07/19 25 Active lisinopril 40 MG tabletIndicatio ns:Type 2 diabetes mellitus with other specified complication, without long-term current use of insulin ([facility]),Essen tial hypertension Take 1 tablet (40 mg) by mouth Once per day. 30 tablet 11 11/07/19 25 Active busPIRone (Buspar) 5 MG tablet TAKE ONE TABLET THREE TIMES DAILY IN THE MORNING, AT NOON, AND AT BEDTIME 90 tablet 11/11/19 25 Active docusate sodium (Colace) 100 MG capsule Take 1 capsule by mouth every 12 (twelve) hours. 02/14/20 20 025 Discontinued(Me d list cleanup (will not trigger notification to Pharmacy)) sildenafil (Viagra) 50 MG tablet Take 1 tablet by mouth at bed time. 07/10/20 19 025 Discontinued(Me d list cleanup (will not trigger notification to Pharmacy)) polyethylene glycol, PEG, 3350 (Glycolax) 17 GM/SCOOP powder 10/22/19 22 025 Discontinued(Me d list cleanup (will not trigger notification to Pharmacy)) aspirin 81 MG EC tabletIndicatio ns:Poorly controlled diabetes mellitus (CMS/[facility]) Take 1 tablet (81 mg) by mouth in the morning. 90 tablet 3 11/22/19 24 025 Discontinued(Re order (will not trigger notification to Pharmacy)) pravastatin (Pravachol) 20 MG tabletIndicatio ns:Type 2 diabetes mellitus with other specified complication, without long-term current use of insulin ([facility]) Take 1 tablet (20 mg) by mouth Once daily. 90 tablet 3 11/22/19 24 025 Discontinued(Re order (will not trigger notification to Pharmacy)) lisinopril 40 MG tabletIndicatio ns:Type 2 diabetes mellitus with other specified complication, without long-term current use of insulin ([facility]) TAKE ONE TABLET BY MOUTH EVERY DAY ^1R1 30 tablet 11 12/10/19 24 025 Discontinued(Re order (will not trigger notification to Pharmacy)) insulin degludec (Tresiba FlexTouch) 100 UNIT/ML injectionIndica tions:Poorly controlled diabetes mellitus (CMS/HCC) Inject 12 Units under the skin Once daily. 15 mL 1 05/26/20 24 025 Discontinued(Re order (will not trigger notification to Pharmacy)) busPIRone (Buspar) 5 MG tablet TAKE ONE TABLET THREE TIMES DAILY IN THE MORNING, AT NOON, AND AT BEDTIME 90 tablet 10/11/19 25 025 Discontinued Active Problems Problem Noted Date Diagnosed Date [...] Encounters Date Type Department Care Team Description 11/10/2024 Refill [facility]INE [address] [place], [place] [phone] Name, MD Rodri 11/09/2024 Orders Only GENERIC EXTERNAL DATA DEPARTMENT Provider, Generic External Data 10/19/2024 10:30 AM EST Nutrition [facility] DIABETES/NTRN [address] [place], [place] [phone] Nguyen R[address] Type 2 diabetes mellitus with other specified complication, with long-term current use of insulin ([facility]) 10/19/2024 Travel 10/10/2024 Refill [facility] MED[facility]INE [address] [place], [place] [phone] Rachael Martinez FNP 09/14/2024 Telephone [facility] [address] [place], [place] [phone] Barber Wheeler MA feb recalls 09/13/2024 Telephone [facility] [address] [place], [place] [phone] Patty Echevarria, IVETTE 09/11/2024 Refill [facility] [address] [place] [address] Name, MD Rodri 08/29/2024 Travel 08/24/2024 11:15 AM EST Office Visit [facility] [address] [place] [address] Name, MD Rodri Type 2 diabetes mellitus with other specified complication, with long-term current use of insulin ([facility]) (Primary Dx); Candidal balanitis; Seborrheic keratoses; Sebaceous cyst from Last 3 Months Immunizations Name [...] your housing situation today? I have merrill gisel 10/15/[address] you li [...] Sign Reading Time Taken Comments Blood Pressure 130/62 11/06/2024 11:23 AM EST Pulse 72 08/24/2024 10:53 AM EST Temperature 35.6 ??C (96.1 ??F) 08/24/2024 10:[address] Respiratory Rate 20 08/24/2024 10:53 AM EST Oxygen Saturation 98% 08/24/2024 10:53 AM EST Inhaled Oxygen Concentration - - Weight 64.2 kg (141 lb 9.6 oz) 10/19/2024 4:01 P M EST Height 152.4 cm (5') 10/19/2024 4:01 PM EST Body Mass Index 27.65 10/19/2024 4:01 PM EST Plan of Treatment Upcoming Encounters Date Type Department Care Team (Late st Contact Info) Description 11/30/2024 10:30 AM EDT Office Visit [facility] [address] [place] [phone] Name, MD Rodri [address] [place] [address] 12/14/2024 3:00 PM EDT Clinical Support [facility] DIABETES/NTRN [address] [place], [place] [phone] Nguyen Ragsdale, ALDO [address] [place] [address] 12/22/2024 11:00 AM EDT Medication Management [facility] [address] [place] [address] Ana Pavon, PharmD [address] [place] [address] Health Maintenance Due Date Last Done Comments CT Colonography 1945 FIT DNA/Cologuard 1945 FIT 1945 FOBT 1945 Sigmoidoscopy 1945 Dental Oral Exam 07/14/2024 01/11/2024 Dental Prophylaxis 07/14/2024 01/11/2024 Diabetes: Foot Exam 09/22/2024 09/22/2023, 09/22/2023, 09/22/2023, Additional history exists Diabetes: Urine Protein Screening 09/22/2024 09/22/2023, 10/15/2022, 07/06/2022, Additional history exists Depression Screening 10/15/2024 10/15/2023, 10/15/19 24 SDOH Screening 10/15/2024 10/15/2023 Eye Exam 11/11/2024 11/11/2022 Dental X-Ray: Bitewings 01/11/2025 01/11/2024 Diabetes: Hemoglobin A1C 02/06/2025 025, 07/12/2024, 04/19/2024, Additional history exists Lipid Panel 06/28/2025 06/28/2024, 0901/2023, 07/06/2022, Additional history exists Alcohol/Substance Use Screening 08/24/2025 08/24/2024 Tobacco Screening 08/24/2025 08/24/2024 Colonoscopy 01/20/2026 01/20/2023, 12/14/2022 Colorectal Cancer Screening 01/20/2026 Dental X-Ray: Full Mouth 01/11/2027 01/11/2024 DTaP/Tdap/Td Vaccines (3 - Td or Tdap) 01/06/2034 01/07/2024, 11/29/2013, 12/07/2006 Hepatitis B Vaccines Completed 01/24/2015, 10/18/2014, 07/20/2014 Pneumococcal Vaccine: 50+ Years Completed 11/16/2019, 05/01/2015, 12/07/2006 Hepatitis C [...] WHOLE BLOOD Routine 11/09/2024 6:30 AM EST POCT GLYCATED HEMOGLOBIN, TOTAL Routine 11/06/2024 11:35 AM EST Type 2 diabetes mellitus with other specified complication, without long-term current use of insulin ([facility]) POCT GLUCOSE Routine 08/24/2024 10:54 AM EST Type 2 diabetes mellitus with other specified complication, with long-term current use of insulin (CMS/[facility]) LIPID PANEL, STANDARD Routine 06/28/2024 9:45 AM EDT Type 2 diabetes mellitus with other specified complication, with long-term current use of insulin (CMS/[facility]) Full PROPHYLAXIS - ADULT Routine 01/11/2024 11:00 AM EDT Dental plaque Dental calculus INTRAORAL - COMPLETE SERIES OF RADIOGRAPHIC IMAGES Routine 01/11/2024 11:00 AM EDT PERIODIC ORAL EVALUATION - ESTABLISHED PATIENT Routine 01/11/2024 11:00 AM EDT Dental plaque Dental calculus Encounter for dental examination Gingival recession, localized ALBUMIN, RANDOM URINE W/CREATININE Routine 09/22/2023 10:44 AM EST Type 2 diabetes mellitus with other specified complication, with long-term current use of insulin (CMS/[facility]) Stage 3 chronic kidney disease, unspecified whether stage 3a or 3b CKD (CMS/HCC) COLONOSCOPY Routine 01/20/2023 1:46 PM EDT DIABETES EYE EXAM Routine 11/11/2022 ZZZ HISTORICAL HEPATITIS A,B,C PROFILE Routine 10/09/2020 1:30 PM EST from Last 3 Months or Most Recently Relevant to Health Maintenance Results * Gross and Microscopic Level 3 (11/09/2024 8:36 AM EST) 11/09/2024 8:36 AM EST 11/09/2024 9:57 AM EST Narrative [facility] - 11/10/2024 1:16 PM EST ----- ------- Name: Francisco Lorenzo ?Age/Sex: 79/M ? : 1945 Unit#: [id number] ?? Attend Dr: Carlton Carmen MD ?Re11/09/24 ?Status: DEP SDC ? Location: HO.SSS ?Disch: ? ----- ------- SPEC : [id number] ? RECD: 11/09/24 ? STATUS: ??SOUT ? REQ NUM: [id number] ? ARIEL: 11/09/240836 ? SUBM DR: Carlton Carmen MD ? ENTERED: ??11/09/24 ?SP TYPE: Surgical ? OTHR DR: Name,Rodri [...] Copies To: ?? Name,Rodri WINN ?? [address] [facility] ?? [place] [address] ?? [phone] ?? Carlton Carmen MD ?? [facility] ?? [address] ?? [place] ?? [phone] ?? [email or web address] ? CONTINUED ON NEXT PAGE ----- ------- Name: Francisco Lorenzo ?Age/Sex: 79/M ? : 1945 Unit#: [id number] ?? Attend Dr: Carlton Carmen MD ?Re11/09/24 ?Status: DEP SDC ? Location: HO.SSS ?Disch: ? ----- ------- SPEC : [id number] ? RECD: 11/09/24-956 ? STATUS: ??SOUT ? REQ NUM: [id number] ? ARIEL: 11/09/24-835 ? SUBM DR: Carlton Carmen MD ? ENTERED: ??11/09/24-1007 ?SP TYPE: Surgical ? OTHR DR: Name,Rodri WINN ? ORDERED: ??Gross Micro L3 ? ----- ------- Signed (signature on file) Ramana Tadeo MD 11/10/24 1316 ? ----- ------- ? END OF REPORT ? us Generic External Data Provider LAB CYTOLOGY TARUN SALVADOR Final Result [facility] [address] [place] [address] [phone] * (ABNORMAL) Glucose, Whole Blood (11/09/2024 6:30 AM EST) Glucose, Whole Blood 164(H) 60 - 115 mg/dL [facility] Comment:METER #: [id number] 11/09/2024 6:30 AM EST 11/09/2024 6:34 AM EST Generic External Data Provider LAB BLOOD ORDERAB LES Final Result [facility] [address] [place] [phone] * (ABNORMAL) POCT HGB A1C (11/06/2024 11:35 AM EST) Hemoglobin A1C 7.6(A) 4.0 - 6.0 % QC Media Lot # [id number] Blood 11/06/2024 11:3 5 AM EST Rodrisae Lund MD POINT OF CARE TEST ENTER/EDIT OR DERABLES Final Result * (ABNORMAL) POCT Glucose (08/24/2024 10:54 AM EST) Glucose Blood, POC 234(A) 60 - 200 mg/dL QC Media Lot # [id number] Lot# Expiration Date Blood Capillary blood specimen / Unknown 08/24/2024 10:54 AM EST Rodri Name POINT OF CARE TEST ENTER/EDIT OR DERABLES Final Result * (ABNORMAL) Lipid Panel, Standard (06/28/2024 9:45 AM EDT) Triglycerides 161(H) <150 mg/dL [facility] Comment:Desirable Triglyceri de: less than 150 mg/dLBorderline High Triglyceride 150-199 mg/dLHigh Triglyceride: 200-499 mg/dLVery High Triglyceride: greater than or equal to 5OO mg/dL Cholesterol 177 <200 mg/dL [facility] Comment:Desirable Cholestero l: less than 200 mg/dLBorderline High Cholesterol: 200-239 mg/dLHigh Cholesterol: greater than 239 mg/dL LDL Cholesterol Calculated 107(H) <100 mg/dL [facility] Comment:Desirable LDL: less than 100 mg/dLNear Optimal/Above Optimal LDL: 110- 129 mg/dLBorderline High LDL: 130-159 mg/dLHigh LDL: 160-189 mg/dLVery High LDL: greater than or equal to 190 mg/dL HDL Cholesterol 38(L) >40 mg/dL [facility] Comment:Desirable HDL: great er than 40 mg/dL Note: This HDL assay may give artificially low results in patients with liver disease. Blood Venous blood specimen / Unknown 06/28/2024 9:45 AM EDT 06/28/2024 11:12 AM EDT us Rodri Lund MD LAB BLOOD ORDERABLES Final Resul t Performing Organization Address [facility] de Phone Number [facility] [address] [place] [phone] * (ABNORMAL) Albumin, Random Urine W/Creatinine (09/22/2023 10:44 AM EST) Creatinine, Urine 71.61 mg/dL [facility] Microalbumin Urine 125.0 mg/L [facility] Microalbum Creatinine Ratio Ur 174.5(H) <30 ug/mg cr [facility] Comment:Albumin/Creatinine R atio Reference Ranges: Normal: < 30 ug/mg creatinine Microalbuminuria: 30 - 300 ug/mg creatinineClinical Albuminuria: > 300 ug/mg creatinine Urine (Urine, Random) 09/22/2023 10:44 AM EST 09/22/2023 11:25 AM EST us Rodri Lund MD LAB URINE ORDERABLES Final Resul t Performing Organization Address [facility] de Phone Number [facility] [address] [place] [phone] * (ABNORMAL) Hm Colonoscopy (01/20/2023 1:46 PM EDT) Colonoscopy Abnormal( A) Normal Comment:Hx of polyps repeat every 3 yrs Rodri Lund MD HEALTH MAINTENANCE Final Result [...] acute HCV infection. 10/09/2020 1:30 PM EST Historical Provider HISTORICAL/NON ORDERABLE LABS Final Result Performing Organization Address City/State/[facility] Co de Phone Number [facility] [address] [place] [address] from Last 3 Months or Most Recently Relevant to Health Maintenance [place] [address] - [employer] Care Teams Telecommunications Consultant Relationship Specialty Start Date End Date Name, MD Rodri [address] [place] [address] PCP - General Family Medicine 09/24/15 Ana Pavon PharmD [address] [place] [address] Pharmacist Internal Medicine 04/28/23 [facility] 09/01/24
== END 2024-11-20 13:08 | disposition home or self-care (01) ==
LOC: HO.HGS 12:51
PROVIDERS: PCP Internal Medicine Geriatric Medicine; Visit Provider Surgery
DX: Z09 Encounter for follow-up examination after completed treatment for conditions other than malignant neoplasm (principal); Z98.890 Other specified postprocedural states
CPT/HCPCS: 99024

== ENCOUNTER → 2024-11-20 12:50 | Outpatient (BNVA) | payer OTHER, SELFPAY | PROVIDERS: PCP Internal Medicine Geriatric Medicine; Visit Provider Surgery | DX: Z09 Encounter for follow-up examination after completed treatment for conditions other than malignant neoplasm (principal); Z98.890 Other specified postprocedural states | CPT/HCPCS: 99212 ==

== ENCOUNTER 2024-12-12 09:51 | Outpatient (REF) | payer OTHER, SELFPAY ==
--- OUTSIDE RECORDS SUMMARY | 2024-12-12 11:21 | XMS_ITS | Encounter Summary ---
Author Organization [employer] Address [address] [place] [address] 7t [place] [address] Care Team Providers Care Customer Success Intern Name Role Phone NameRodri MD Primary Care Provider [phone] Ana Pavon PharmD Unavailable [phone] Encounter Details Date Type Department Care Team (Latest Contact Info) Description 06/25/2022 Abstract [facility] CONVERSIONS Dental, Provider, DDS Social History [...] Care Team ( st Contact Info) Description 12/14/2024 3:00 PM EDT Clinical Support [facility] DIABETES/NTRN [address] [place] [address] Nguyen Ragsdale, ALDO [address] [place] [address] 12/22/2024 11:00 AM EDT Medication Management [facility] MEDICINE [address] [place] [phone] Ana Pavon, PharmD [address] [place] [address] 12/22/2024 11:30 AM EDT Office Visit [facility] [address] [place] [phone] NameRodri MD [address] [place] [phone] documented as of this encounter Visit Diagnoses Not on filedocumented in this encounter Care Teams Customer Success Intern Relationship Specialty Start Date End Date Name, MD Rodri [address] [place] [phone] PCP - General Family Medicine 09/24/15 Ana Pavon, NoelD [address] [place] [phone] Pharmacist Internal Medicine 04/28/23 [facility] 09/01/24 documented as of this encounter
--- OUTSIDE RECORDS SUMMARY | 2024-12-12 11:21 | XMS_ITS | Encounter Summary ---
Author Organization [employer] Address [address] [facility] 7t [place] [address] Care Team Providers Care Online Merchandising Manager Name Role Phone Name, Rodri WINN Primary Care Provider [phone] Ana Pavon PharmD Unavailable [phone] Reason for Visit * Reason Comments Med Refill Encounter Details Date Type Department Care Team ([facility] st Contact Info) Description 12/11/2024 Refill [facility] MEDICINE [address] [place], [place] [phone] Name, MD Rodri [address] [place] [address] Social History Tobacco Use Types Packs/Day Years [...] Care Team (Late st Contact Info) Description 12/14/2024 3:00 PM EDT Clinical Support [facility] DIABETES/NTRN [address] [place] [address] [place] [address] 12/22/2024 11:00 AM EDT Medication Management [address] [address] Ana Pavon PharmD [address] [place] [address] 12/22/2024 11:30 AM EDT Office Visit [address] [address] Name, MD Rodri [address] [place] [address] documented as of this encounter Goals Goal [...] documented as of this encounter Care Teams Online Merchandising Manager Relationship Specialty Start Date End Date Name, MD Rodri [address] [place] [address] PCP - General Family Medicine 09/24/15 Ana Pavon, Mary [address] [place] [address] Pharmacist Internal Medicine 04/28/23 [facility] 09/01/24 documented as of this encounter
--- OUTSIDE RECORDS SUMMARY | 2024-12-12 11:21 | XMS_ITS | Encounter Summary ---
Author Organization [employer] Address [address] [place] [address] 7t [place] [address] Care Team Providers Care Principal Gifts Officer Name Role Phone Name, Rodri WINN Primary Care Provider [phone] Ana Pavon PharmD Unavailable [phone] Reason for Visit * Reason Comments Med Refill Encounter Details Date Type Department Care Team ([facility] st Contact Info) Description 04/07/2023 Refill [facility] MEDICINE [address] [place], [place] [phone] Name, MD Rodri [address] [place] [address] Social History Tobacco Use Types Packs/Day Years [...] 10:49 AM EDT Med request came from [facility] who pt uses as a secondary pharmacy. [...] Description 12/14/2024 3:00 PM EDT Clinical Support [facility] DIABETES/NTRN [address] [place] [address] Nguyen Ragsdale, RD [address] [place] [address] 12/22/2024 11:00 AM EDT Medication Management [address] [address] Ana Pavon PharmD [address] [place] [address] 12/22/2024 11:30 AM EDT Office Visit [address] [address] Name, MD Rodri [address] [place] [address] documented as of this encounter Visit Diagnoses Not on filedocumented in this encounter Care Teams Principal Gifts Officer Relationship Specialty Start Date End Date Name, MD Rodri [address] [place] [address] PCP - General Family Medicine 09/24/15 Ana Pavon, PharmD [address] [place] [address] Pharmacist Internal Medicine 04/28/23 [facility] 09/01/24 documented as of this encounter
--- OUTSIDE RECORDS SUMMARY | 2024-12-12 11:21 | XMS_ITS | Encounter Summary ---
Author Organization [employer] Address [address] [facility] 7t [place] [address] Care Team Providers Care Clinical Laboratory Assistant Name Role Phone Name, Rodri WINN Primary Care Provider [phone] Ana Pavon PharmD Unavailable [phone] Reason for Visit * Reason Comments Med Refill Encounter Details Date Type Department Care Team ([facility] st Contact Info) Description 06/23/2024 Refill [facility] MEDICINE [address] [place], [place] [phone] Name, MD Rodri [address] [place] [address] Social History Tobacco Use Types Packs/Day Years [...] Description 12/14/2024 3:00 PM EDT Clinical Support [facility] DIABETES/NTRN [address] [place] [address] [place] [address] 12/22/2024 11:00 AM EDT Medication Management [address] [address] Ana Pavon PharmD [address] [place] [address] 12/22/2024 11:30 AM EDT Office Visit [address] [address] Name, MD Rodri [address] [place] [address] documented as of this encounter Goals Goal [...] documented as of this encounter Care Teams Clinical Laboratory Assistant Relationship Specialty Start Date End Date Name, MD Rodri [address] [place] [address] PCP - General Family Medicine 09/24/15 Ana Pavon, Mary [address] [place] [address] Pharmacist Internal Medicine 04/28/23 [facility] 09/01/24 documented as of this encounter
--- OUTSIDE RECORDS SUMMARY | 2024-12-12 11:21 | XMS_ITS | Encounter Summary ---
Author Organization [employer] Address [address] [place] [address] 7t [place] [address] Care Team Providers Care Border Machine Operator Name Role Phone NameRodri MD Primary Care Provider [phone] Ana Pavon PharmD Unavailable [phone] Encounter Details Date Type Department Care Team (Latest Contact Info) Description 02/25/2021 Abstract [facility] CONVERSIONS Dental, Provider, DDS Social History [...] Description 12/14/2024 3:00 PM EDT Clinical Support [facility] DIABETES/NTRN [address] [place] [address] Nguyen Ragsdale, ALDO [address] [place] [address] 12/22/2024 11:00 AM EDT Medication Management [facility] MEDICINE [address] [place] [phone] Ana Pavon, PharmD [address] [place] [address] 12/22/2024 11:30 AM EDT Office Visit [facility] MEDICINE [address] [place] [address] NameRodri MD [address] [place] [address] documented as of this encounter Visit Diagnoses Not on filedocumented in this encounter Care Teams Border Machine Operator Relationship Specialty Start Date End Date Name, MD Rodri [address] [place] [address] PCP - General Family Medicine 09/24/15 Ana Pavon, NoelD [address] [place] [address] Pharmacist Internal Medicine 04/28/23 [facility] 09/01/24 documented as of this encounter
--- OUTSIDE RECORDS SUMMARY | 2024-12-12 11:21 | XMS_ITS | Encounter Summary ---
Author Organization [employer] Address 75 [facility] 7t [place] [address] Care Team Providers Care Woodyard Crane Operator Name Role Phone Name, Rodri WINN Primary Care Provider [phone] Ana Pavon PharmD Unavailable [phone] Reason for Visit * Reason Comments Med Refill Encounter Details Date Type Department Care Team ([facility] st Contact Info) Description 11/19/2023 Refill [facility] MEDICINE 230 [place], [place] [phone] Name, MD Rodri 230 [place] [address] Social History Tobacco Use Types Packs/Day Years [...] Description 12/14/2024 3:00 PM EDT Clinical Support [facility] CHC DIABETES/NTRN 505 [place], [place] [phone] [address] [place] [address] 12/22/2024 11:00 AM EDT Medication Management [address] [address] Ana Pavon PharmD [address] [place] [address] 12/22/2024 11:30 AM EDT Office Visit [address] [address] Name, MD Rodri [address] [place] [address] documented as of this encounter Goals Goal [...] documented as of this encounter Care Teams Woodyard Crane Operator Relationship Specialty Start Date End Date Name, MD Rodri 230 [place] [address] PCP - General Family Medicine 09/24/15 Ana Pavon PharmD 230 [place] [address] Pharmacist Internal Medicine 04/28/23 [facility] 09/01/24 documented as of this encounter
--- OUTSIDE RECORDS SUMMARY | 2024-12-12 11:21 | XMS_ITS | Clinical Summary ---
Author Organization [facility] Address [address] [phone] Phone Care Team Providers Care Real Estate Branch Manager Name Role Phone Name, Rodri WINN Primary Care Provider [phone] Allergies Active Allergy Reactions Criticality Noted Date [...] Office Visit [facility] [address] [address] Byron Rodas MD [address] [address] Health Maintenance Due Date Last [...] Completed 05/22/2024, , 06/24/2021, Additional history exists Insurance [facility] ([id number]) [facility] ([id number]) Care Teams Real Estate Branch Manager Relationship Specialty Start Date End Date Name, MD Rodri [address] [place] [address] [phone] PCP - General Internal Medicine 06/25/21
--- OUTSIDE RECORDS SUMMARY | 2024-12-12 11:22 | XMS_ITS | Encounter Summary ---
Author Organization [employer] Address [address] [place] [address] 7t [place] [address] Care Team Providers Care Wind Turbine Installer Name Role Phone Name, Rodri WINN Primary Care Provider [phone] Ana Pavon PharmD Unavailable Reason for Visit * Reason Comments Med Refill Encounter Details Date Type Department Care Team (Late st Contact Info) Description 04/13/2023 Refill [facility] MEDICINE 230 [place], [place] [phone] Name, MD Rodri 230 [place] [address] Social History Tobacco Use Types Packs/Day Years [...] Department Care Team (Late Contact Info) Description 12/14/2024 3:00 PM EDT Clinical Support [facility] CHC DIABETES/NTRN [address] [place], [place] [phone] Nguyen [address] 230 [place] [address] 12/22/2024 11:00 AM EDT Medication Management [facility] MEDICINE [address] [place] [address] Ana Pavon PharmD [address] [place] [address] 12/22/2024 11:30 AM EDT Office Visit [facility] MEDICINE [address] [place] [address] Name, MD Rodri [address] [place] [address] documented as of this encounter Visit Diagnoses Not on filedocumented in this encounter Care Teams Wind Turbine Installer Relationship Specialty Start Date End Date Name, MD Rodri [address] [place] [address] PCP - General Family Medicine 09/24/15 Ana Pavon PharmD [address] [place] [address] Pharmacist Internal Medicine 04/28/23 [facility] 09/01/24 documented as of this encounter
--- OUTSIDE RECORDS SUMMARY | 2024-12-12 11:22 | XMS_ITS | Clinical Summary ---
Author Organization [employer] Address [address] [place] [address] 7t [place] [address] Care Team Providers Care Steam Gigger Name Role Phone Name, Rodri WINN Primary Care Provider [phone] Ana Pavon PharmD Unavailable [phone] Allergies No known active allergies Medications allopurinol (Zyloprim) 100 MG tablet Take 100 mg by mouth in the morning. 06/25/20 22 Active famotidine (Pepcid) 40 MG tablet Take 40 mg by mouth in the morning. 04/21/20 22 Active terazosin (Hytrin) 5 MG capsule Take 5 mg by mouth at bedtime. 03/02/20 23 Active Continuous Blood Gluc Quill Worker (FreeStyle Grace 2 Cory) deviceIndication s:Poorly controlled diabetes mellitus ([facility]) Use to scan sensor at least every 8 hours, as directed, for CGM 1 each 04/28/20 23 Active insulin pen needle 32G x 4 mm miscIndications: Poorly controlled diabetes mellitus (CMS/HCC) Use to inject insulin 1 time daily 100 each 3 11/22/19 24 Active glucose blood (FreeStyle Precision Cosme Test) test stripIndications :Type 2 diabetes mellitus with other specified complication, without long-term current use of insulin ([facility]) Use to test blood sugar up to 3 times daily, as directed 100 each 5 11/22/19 24 Active Diclofenac Sodium 1 % gelIndications:A rticular gout APPLY 2 GRAMS TOPICALLY FOUR TIMES A DAY (BULK) 100 g 5 11/23/19 24 Active Testosterone 1.62 % gel 02/11/20 24 Active Continuous Glucose Sensor (FreeStyle Grace 2 Sensor) miscIndications: Poorly controlled diabetes mellitus (CMS/HCC) Apply 1 sensor, as directed, every 14 days for CGM 2 each 05/26/20 Active TRUEplus Lancets 33G misc Use to test blood sugar up to 3 time(s) daily as directed 100 each 05/26/20 24 Active omeprazole (PriLOSEC) [address] capsule TAKE ONE CAPSULE BY MOUTH EVERY MORNING 90 capsule 1 06/06/20 24 Active Jardiance 10 MG Take 10 mg by mouth in the morning. Active amLODIPine (Norvasc) 5 MG tabletIndication s:Essential hypertension Take 1 tablet (5 mg) by mouth Once per day. 30 tablet 08/29/20 24 025 Active Tirzepatide (Mounjaro) 5 MG/0.5ML solution auto-injectorInd ications:Type 2 diabetes mellitus with other specified complication, with long-term current use of insulin ([facility]) Inject 5 mg under the skin 1 (one) time per week. 2 mL 08/29/20 24 Active aspirin 81 MG EC tabletIndication s:Type 2 diabetes mellitus with other specified complication, without long-term current use of insulin ([facility]),High cholesterol Take 1 tablet (81 mg) by mouth Once per day. 90 tablet 3 11/07/19 25 Active insulin degludec (Tresiba FlexTouch) 100 UNIT/ML injectionIndicat ions:Type 2 diabetes mellitus with other specified complication, without long-term current use of insulin ([facility]) Inject 16 Units under the skin Once daily. 15 mL 1 11/07/19 25 Active pravastatin (Pravachol) 20 MG tabletIndication s:Type 2 diabetes mellitus with other specified complication, without long-term current use of insulin ([facility]),High cholesterol Take 1 tablet (20 mg) by mouth Once daily. 90 tablet 3 11/07/19 25 Active lisinopril 40 MG tabletIndication s:Type 2 diabetes mellitus with other specified complication, without long-term current use of insulin ([facility]),Essent ial hypertension Take 1 tablet (40 mg) by mouth Once per day. 30 tablet 11 11/07/19 25 Active Ferrous Sulfate (iron) 325 (65 Fe) MG tablet TAKE ONE TABLET EVERY MORNING 90 tablet 1 12/06/19 25 Active Multiple Vitamin (Multivitamin) tablet TAKE ONE TABLET EVERY MORNING 90 tablet 3 12/06/19 25 Active busPIRone (Buspar) 5 MG tablet TAKE ONE TABLET THREE TIMES DAILY IN THE MORNING, AT NOON, AND AT BEDTIME 90 tablet 12/12/19 25 Active Multiple Vitamin (Multivitamin) tablet Take 1 tablet by mouth in the morning. 11/23/19 24 025 Discontinued FeroSul 325 (65 Fe) MG tablet TAKE ONE TABLET BY MOUTH EVERY MORNING 90 tablet 1 06/06/20 24 025 Discontinued busPIRone (Buspar) 5 MG tablet TAKE ONE TABLET THREE TIMES DAILY IN THE MORNING, AT NOON, AND AT BEDTIME 90 tablet 11/11/19 25 025 Discontinued Active Problems Problem Noted Date Diagnosed Date Acid reflux 02/05/2023 Anemia 02/05/2023 Benign prostatic hyperplasia 02/05/2023 Chronic constipation 02/05/2023 Effusion of right knee 02/05/2023 Rheumatoid factor positive 02/05/2023 History of colonic polyps 02/05/2023 Male hypogonadism 02/05/2023 Pain in joint 02/05/2023 Right knee pain 02/05/2023 Tubular adenoma 02/05/2023 Elevated rheumatoid factor 02/05/2023 Articular gout 07/29/2022 Ahre's esophagus 07/29/2022 Diverticular disease 07/29/2022 Male erectile disorder 07/29/2022 Cyst of kidney, acquired 07/09/2021 Stage 3 chronic kidney disease 07/09/2021 Essential hypertension 10/15/2015 Type 2 diabetes mellitus 10/15/2015 Hyperlipidemia 01/24/2013 Anxiety state 03/17/2012 Depressive disorder 03/17/2012 Resolved Problems Problem Noted Date Diagnosed Date Resolved Date Prostatism 05/19/2016 10/15/2023 Encounters Date Type Department Care Team Description 12/11/2024 Refill [facility] MEDICINE [address] [place] [address] Name, MD Rodri 12/05/2024 Refill [facility] MEDICINE [address] [place], [place] [phone] Name, MD Rodri 11/29/2024 Telephone [facility] MEDICINE [address] [place] [address] Barber Wheeler [place] appt change (Provider out /) 11/10/2024 Refill [facility] MEDICINE [address] [place] [address] Name, MD Rodri 11/09/2024 Orders Only GENERIC EXTERNAL DATA DEPARTMENT Provider, Generic External Data 10/19/2024 10:30 AM EST Nutrition [facility] CHC DIABETES/NTRN [address] [place] [address] Type 2 diabetes mellitus with other specified complication, with long-term current use of insulin ([facility]) 10/19/2024 Travel 10/10/2024 Refill [facility] MEDICINE [address] [place] [address] LowellRachael moran, SKIN CARE TECHNICIAN 09/14/2024 Telephone [facility] MEDICINE [address] [place] [address] Barber Wheeler MA feb recalls 09/13/2024 Telephone [facility] MEDICINE [address] [place] [address] Patty Echevarria, IVETTE from Last 3 Months Immunizations Name Administration [...] 12/14/2024 3:00 PM EDT Clinical Support [facility] DIABETES/NTRN [address] [place] [address] [place] [address] 12/22/2024 11:00 AM EDT Medication Management [facility] MEDICINE [address] [place] [address] Ana Pavon, PharmD [address] [place] [address] 12/22/2024 11:30 AM EDT Office Visit [facility] MEDICINE [address] [place] [address] Name, MD Rodri [address] [place] [address] Health Maintenance Due Date Last Done Comments [...] Additional history exists Lipid Panel 06/28/2025 06/28/2024, 09/0 01/2023, 07/06/2022, [...] 7.6( 11:35 AM EST) No Ana Pavon, Mayr Record your blood sugar as directed Result [...] complication, without long-term current use of insulin ([facility]) LIPID PANEL, STANDARD Routine 06/28/2024 9:45 AM EDT Type 2 diabetes mellitus with other specified complication, with long-term current use of insulin ([facility]) Full PROPHYLAXIS - ADULT Routine 01/11/2024 11:00 [...] complication, with long-term current use of insulin ([facility]) Stage 3 chronic kidney disease, unspecified whether stage 3a or 3b CKD ([facility]) COLONOSCOPY Routine 01/20/2023 1:46 PM EDT DIABETES EYE EXAM Routine 11/11/2022 JUMA HISTORICAL HEPATITIS A,B,C PROFILE Routine 10/09/2020 1:30 PM EST from Last 3 Months or Most Recently Relevant to Health Maintenance Results * Gross and Microscopic Level 3 (11/09/2024 8:36 AM EST) 11/09/2024 8:36 AM EST 11/09/2024 9:57 AM EST [facility] LABS - 11/10/2024 1:16 PM EST ----- ------- Name: Francisco Lorenzo ?Age/Sex: 79/M ? : 1945 Unit#: [id number] ?? Attend Dr: Carlton Carmen MD ?Re11/09/24 ?Status: DEP SDC ? Location: HO.SSS ?Disch: ? ----- ------- SPEC : [id number] ? RECD: 11/09/24 ? STATUS: ??SOUT ? REQ NUM: [id number] ? AIREL: 11/09/24 ? SUBM DR: Carlton Caremn MD ? ENTERED: ??11/09/24 ?SP TYPE: Surgical ? OTHR DR: Rodri Lund MD ? ORDERED: ??Gross Micro L3 ? Diagnosis [...] the tip portions. CEDS Copies To: ?? Kevon,Rodri WINN ?? [address] [facility] ?? [place] [address] ?? [phone] ?? Carlton Carmen MD ?? [facility] ?? [address] ?? [place] [address] ?? [phone] ?? [email or web address] ? CONTINUED ON NEXT PAGE ----- ------- Name: Francisco Lorenzo ?Age/Sex: 79/M ? : 1945 Unit#: [id number] ?? Attend Dr: Carlton Carmen MD ?Re11/09/24 ?Status: DEP SDC ? Location: HO.SSS ?Disch: ? ----- ------- SPEC : [id number] ? RECD: 11/09/24 ? STATUS: ??SOUT ? REQ NUM: [id number] ? ARIEL: 11/09/24-835 ? SUBM DR: Carlton Carmen MD ? ENTERED: ??11/09/24-1007 ?SP TYPE: Surgical ? OTHR : Rodri Lund MD ? ORDERED: ??Gross Micro L3 ? ----- ------- Signed (signature on file) Ramana Tadeo MD 11/10/24 0836 ? ----- ------- ? END OF REPORT ? us Generic External Data Provider LAB CYTOLOGY ORDE MADELEINE Final Result [facility] [address] [place] [address] [phone] * (ABNORMAL) Glucose, Whole Blood (11/09/2024 6:30 AM EST) Glucose, Whole Blood 164(H) 60 - 115 mg/dL [facility] Comment:METER #: [id number] 11/09/2024 6:30 AM EST 11/09/2024 6:34 AM EST us Generic External Data Provider LAB BLOOD ORDERAB LES Final Result Performing Organization Address [facility] Co de Phone Number [facility] [address] [place] [phone] * (ABNORMAL) POCT HGB A1C (11/06/2024 11:35 AM EST) Pathologist [facility] Hemoglobin A1C 7.6(A) 4.0 - 6.0 % QC Media Lot # [id number] Blood 11/06/2024 11:3 5 AM EST Rodri Lund MD POINT OF CARE TEST ENTER/EDIT OR DERABLES Final Result * (ABNORMAL) Lipid Panel, Standard (06/28/2024 9:45 AM EDT) Triglycerides 161(H) <150 mg/dL [facility] Comment:Desirable Triglyceri de: less than 150 mg/dLBorderline High Triglyceride 150-199 mg/dLHigh Triglyceride: 200-499 mg/dLVery High Triglyceride: greater than or equal to 5OO mg/dL Cholesterol 177 <200 mg/dL [facility] Comment:Desirable Cholestero l: less than 200 mg/dLBorderline High Cholesterol: 200-239 mg/dLHigh Cholesterol: greater than 239 mg/dL LDL Cholesterol Calculated 107(H) <100 mg/dL [facility] Comment:Desirable LDL: less than 100 mg/dLNear Optimal/Above Optimal LDL: 110- 129 mg/dLBorderline High LDL: 130-159 mg/dLHigh LDL: 160-189 mg/dLVery High LDL: greater than or equal to 190 mg/dL HDL Cholesterol 38(L) >40 mg/dL [facility] Comment:Desirable HDL: great er than 40 mg/dL Note: This HDL assay may give artificially low results in patients with liver disease. Blood Venous blood specimen / Unknown 06/28/2024 9:45 AM EDT 06/28/2024 11:12 AM EDT us Rodri Lund MD LAB BLOOD ORDERABLES Final Resul t Performing Organization Address [facility] de Phone Number [facility] [address] [place] [phone] * (ABNORMAL) Albumin, Random Urine W/Creatinine (09/22/2023 10:44 AM EST) Creatinine, Urine 71.61 mg/dL [facility] Microalbumin Urine 125.0 mg/L [facility] Microalbum Creatinine Ratio Ur 174.5(H) <30 ug/mg cr [facility] Comment:Albumin/Creatinine R atio Reference Ranges: Normal: < 30 ug/mg creatinine Microalbuminuria: 30 - 300 ug/mg creatinineClinical Albuminuria: > 300 ug/mg creatinine Urine (Urine, Random) 09/22/2023 10:44 AM EST 09/22/2023 11:25 AM EST us Rodri Lund MD LAB URINE ORDERABLES Final Resul t Performing Organization Address [facility] Co de Phone Number [facility] [address] [place] [phone] * (ABNORMAL) Colonoscopy (01/20/2023 1:46 PM EDT) Colonoscopy Abnormal( A) Normal Comment:Hx of polyps repeat every 3 yrs us Rodri Lund MD HEALTH MAINTENANCE Final Result * Diabetes Eye Exam (11/11/2022) Eye Exam Normal Normal Rodri Name HEALTH MAINTENANCE Final Result * Hepatitis A,B,C [...] ORDERABLE LABS Final Result Performing Organization Address City/State/[facility] Co de Phone Number [facility] [place] [address], from Last 3 Months or Most Recently Relevant to Health Maintenance Insurance [facility] Care Teams Steam Gigger Relationship Specialty Start Date End Date Name, MD Rodri [address] [place] [address] PCP - General Family Medicine 09/24/15 Ana Pavon, NoelD [address] [place] [address] Pharmacist Internal Medicine 04/28/23 [facility] Care 09/01/24
--- OUTSIDE RECORDS SUMMARY | 2024-12-12 11:22 | XMS_ITS | Encounter Summary ---
Author Organization [employer] Address [address] [place] [address] 7t [place] [address] Care Team Providers Care Logistics Tech Name Role Phone Name, Rodri WINN Primary Care Provider [phone] Ana Pavon PharmD Unavailable [phone] Reason for Visit * Reason Comments Med Refill Encounter Details Date Type Department Care Team ([facility] Contact Info) Description 03/24/2023 Refill [facility] MEDICINE [address] [place], [place] [phone] Name, MD Rodri [address] [place] [address] Social History Tobacco Use Types Packs/Day Years [...] Upcoming Encounters Date Type Department Care Team ([facility] Contact Info) Description 12/14/2024 3:00 PM EDT Clinical Support [facility] DIABETES/NTRN 505 [place], [place] [phone] Nguyen R[address] [place] [address] 12/22/2024 11:00 AM EDT Medication Management [address] [address] Ana Pavon PharmD [address] [place] [address] 12/22/2024 11:30 AM EDT Office Visit [address] [address] NameRodri MD [address] [place] [address] documented as of this encounter Visit Diagnoses Not on filedocumented in this encounter Care Teams Logistics Tech Relationship Specialty Start Date End Date Name, MD Rodri [address] [place] [address] [phone] PCP - General Family Medicine 09/24/15 Ana Pavon PharmD [address] [place] [address] [phone] Pharmacist Internal Medicine 04/28/23 [facility] 09/01/24 documented as of this encounter
--- OUTSIDE RECORDS SUMMARY | 2024-12-12 11:22 | XMS_ITS | Encounter Summary ---
Author Organization [employer] Address [address] [place] [address] 7t [place] [address] Care Team Providers Care Cloth Sander Name Role Phone Name, Rodri WINN Primary Care Provider [phone] Ana Pavon PharmD Unavailable [phone] Encounter Details Date Type Department Care Team (Latest Contact Info) Description 08/23/2019 Abstract [facility] CONVERSIONS Dental, Provider, DDS Social History Tobacco [...] Description 12/14/2024 3:00 PM EDT Clinical Support [facility] CHC DIABETES/NTRN [address] [place] [address] Nguyen Ragsdale, ALDO [address] [place] [address] 12/22/2024 11:00 AM EDT Medication Management [facility] MEDICINE [address] [place] [address] Ana Pavon, PharmD [address] [place] [address] 12/22/2024 11:30 AM EDT Office Visit [facility] MEDICINE [address] [place] [address] Name, MD Rodri [address] [place] [address] documented as of this encounter Visit Diagnoses Not on filedocumented in this encounter Care Teams Cloth Sander Relationship Specialty Start Date End Date Name, MD Rodri [address] [place] [address] PCP - General Family Medicine 09/24/15 Ana Pavon, Mary [address] [place] [address] Pharmacist Internal Medicine 04/28/23 [facility] 09/01/24 documented as of this encounter
[2024-12-12 13:36] LABS: Hematocrit 42.3 % (42.0-52.0); Hemoglobin 13.8 g/dl (14.0-18.0); Mean Corpuscular HGB Conc 32.6 g/dl (31.0-36.0); Mean Corpuscular Hemoglobin 28.2 pg (27.0-33.0); Mean Corpuscular Volume 86.5 fL (80.0-98.0); Mean Platelet Volume 9.7 fL (9.4-12.4); Platelet Count 291 X10*3/uL (160-400); Red Blood Count 4.89 X10*6/uL (4.60-5.80); Red Cell Distribution Width 13.8 % (11.0-16.0); White Blood Count 12.1 X10*3/uL (4.8-10.8)
[2024-12-18 15:20] LABS: Testosterone, Free 65.4 pg/mL (30.0-135.0); Testosterone, Total 279 ng/dL (250-1100)
== END 2024-12-12 09:52 | disposition home or self-care (01) ==
LOC: HO.10HDL 09:51
PROVIDERS: Visit Provider Nurse Practitioner Family
DX: E29.1 Testicular hypofunction (principal); Z12.5 Encounter for screening for malignant neoplasm of prostate
CPT/HCPCS: 36415; 84153; 84402; 84403; 85027

== ENCOUNTER 2024-12-14 07:58 | Outpatient (REF) | payer OTHER, SELFPAY ==
--- NOTE | ~2024-12-14 | FL_ITS ---
EXAMINATION: XR BARIUM SWALLOW CLINICAL INFORMATION: Gastroesophageal reflux disease without esophagitis. COMPARISON: None available. TECHNIQUE: Routine barium swallow was performed with thick barium and barium coated saltine crackers in upright view. Thin barium was administered in prone lying position. FINDINGS: Following oral administration of thick barium and effervescent granules there is normal propagation bolus from the oral cavity through the pharynx, esophagus into stomach without any evidence of obstruction, narrowing or stricture. The course and caliber of the esophagus is normal. There is diminished peristalsis in the esophagus towards the end of study. On placing patient in prone lying position and oral administration of thin barium there is good distention of esophagus without hiatal hernia. There is suggestion for recurrent sliding hiatal hernia. No gastroesophageal reflux seen. FLUOROSCOPY TIME: 2 minutes and 26 seconds DOSE AREA PRODUCT: 178.4 uGy-m2 (microgray-meter squared) FL/FL barium swallow IMPRESSION: Suspect small sliding hiatal hernia. No reflux seen. Diminished esophageal peristalsis at the end of the study. Electronically signed by: Deon Contreras MD 12/14/2024 10:09 AM EDT
--- OUTSIDE RECORDS SUMMARY | 2024-12-14 08:01 | XMS_ITS | Encounter Summary ---
Author Organization [employer] Address [address] [facility] 7t [place] [address] Care Team Providers Care Windchill Administrator Name Role Phone Name, Rodri WINN Primary Care Provider [phone] Ana Pavon PharmD Unavailable [phone] Reason for Visit * Reason Comments Med Refill Encounter Details Date Type Department Care Team ([facility] st Contact Info) Description 06/23/2024 Refill [facility] MEDICINE [address] [place], [place] [phone] Name, MD Rodri [address] [place] [address] Social History Tobacco Use Types Packs/Day Years [...] Description 12/14/2024 3:00 PM EDT Clinical Support [facility] CHC DIABETES/NTRN [address] [place] [address] [place] [address] 12/22/2024 11:00 AM EDT Medication Management [address] [address] Ana Pavon PharmD [address] [place] [address] 12/22/2024 11:30 AM EDT Office Visit [address] [address] Name, MD Rodri [address] [place] [phone] documented as of this encounter Goals Goal [...] documented as of this encounter Care Teams Windchill Administrator Relationship Specialty Start Date End Date Name, MD Rodri [address] [place] [address] PCP - General Family Medicine 09/24/15 Ana Pavon, Mary [address] [place] [address] Pharmacist Internal Medicine 04/28/23 [facility] 09/01/24 documented as of this encounter
--- OUTSIDE RECORDS SUMMARY | 2024-12-14 08:01 | XMS_ITS | Clinical Summary ---
Author Organization [facility] Address [address] [address] Phone Care Team Providers Care Chef German Name Role Phone Name, Rodri WINN Primary Care Provider [phone] Allergies Active Allergy Reactions Criticality Noted Date [...] 03/17/2012 05/11/2023 Depressive disorder 03/17/2012 05/11/2023 Immunizations Immunization Administration Dates Next Due Hepatitis B 01/24/2015,10/18/2014,07/20/2014 [...] Office Visit [facility] [address] [phone] Byron Rodas MD [address] [address] Health Maintenance Due Date Last Done Comments Diabetes: Ophthalmology Exam 10/26/2022 Diabetes: Pedal Pulse Checked 10/26/2022 Diabetes: Sensory Foot Exam 10/26/2022 Diabetes: Visual Foot Exam 10/26/2022 Diabetes: Hemoglobin A1C 10/12/2024 024, 04/19/2024, 11/18/2023, Additional history exists Hepatitis B Vaccine Aged Out 01/24/2015, 10/18/2014, 07/20/2014 No longer eligible based on patient's age to complete this topic Pneumococcal Vaccine: 50+ Years Completed 11/16/2019, 05/01/2015, 12/07/2006 Influenza Vaccine Completed 05/22/2024, , 06/24/2021, Additional history exists Insurance [facility] ([id number]) [facility] ([id number]) Care Teams Chef German Relationship Specialty Start Date End Date Name, MD Rodri [address] [place] [address] [phone] PCP - General Internal Medicine 06/25/21
--- OUTSIDE RECORDS SUMMARY | 2024-12-14 08:02 | XMS_ITS | Encounter Summary ---
Author Organization [employer] Address [address] [facility] 7t [place] [address] Care Team Providers Care Funeral Attendant Name Role Phone Name, Rodri WINN Primary Care Provider [phone] Ana Pavon PharmD Unavailable [phone] Reason for Visit * Reason Comments Med Refill Encounter Details Date Type Department Care Team ([facility] st Contact Info) Description 12/11/2024 Refill [facility] MEDICINE 230 [place], [place] [phone] Name, MD Rodri 230 [place] [address] Social History Tobacco Use Types Packs/Day Years [...] 3:00 PM EDT Clinical Support [facility] CHC DIABETES/NTRN 505 [place] [address] [place] [address] 12/22/2024 11:00 AM EDT Medication Management [address] [address] Ana Pavon PharmD [address] [place] [address] 12/22/2024 11:30 AM EDT Office Visit [address] [address] Name, MD Rodri [address] [place] [address] documented as of this encounter Goals Goal [...] documented as of this encounter Care Teams Funeral Attendant Relationship Specialty Start Date End Date Name, MD Rodri 230 [place] [address] PCP - General Family Medicine 09/24/15 Ana Pavon, Mary 230 [place] [address] Pharmacist Internal Medicine 04/28/23 [facility] 09/01/24 documented as of this encounter
--- OUTSIDE RECORDS SUMMARY | 2024-12-14 08:02 | XMS_ITS | Encounter Summary ---
Author Organization [employer] Address [address] [place] [address] 7t [place] [address] Care Team Providers Care Contract Assistant Name Role Phone Name, Rodri WINN Primary Care Provider [phone] Ana Pavon PharmD Unavailable [phone] Reason for Visit * Reason Comments Med Refill Encounter Details Date Type Department Care Team (Late st Contact Info) Description 04/13/2023 Refill [facility] MEDICINE 230 [place], [place] [phone] Name, MD Rodri 230 [place] [address] Social History Tobacco Use Types Packs/Day Years [...] Description 12/14/2024 3:00 PM EDT Clinical Support [facility] CHC DIABETES/NTRN [address] [place], [place] [phone] [address] 230 [place] [address] 12/22/2024 11:00 AM EDT Medication Management [facility] MEDICINE [address] [place] [address] Ana Pavon PharmD [address] [place] [address] 12/22/2024 11:30 AM EDT Office Visit [facility] MEDICINE [address] [place] [address] Name, MD Rodri [address] [place] [address] documented as of this encounter Visit Diagnoses Not on filedocumented in this encounter Care Teams Contract Assistant Relationship Specialty Start Date End Date Name, MD Rodri [address] [place] [address] PCP - General Family Medicine 09/24/15 Ana Pavon PharmD [address] [place] [address] Pharmacist Internal Medicine 04/28/23 [facility] 09/01/24 documented as of this encounter
--- OUTSIDE RECORDS SUMMARY | 2024-12-14 08:02 | XMS_ITS | Encounter Summary ---
Author Organization [employer] Address [address] [facility] 7t [place] [address] Care Team Providers Care Command And Control Name Role Phone Name, Rodri WINN Primary Care Provider [phone] Ana Pavon PharmD Unavailable [phone] Reason for Visit * Reason Comments Med Refill Encounter Details Date Type Department Care Team ([facility] st Contact Info) Description 11/19/2023 Refill [facility] MEDICINE 230 [place], [place] [phone] Name, MD Rodri 230 [place] [address] Social History Tobacco Use Types Packs/Day Years [...] 3:00 PM EDT Clinical Support [facility] CHC DIABETES/NTRN 505 [place], [place] [phone] Nguyen [address] 230 [place] [address] 12/22/2024 11:00 AM EDT Medication Management [address] [address] Ana Pavon PharmD [address] [place] [address] 12/22/2024 11:30 AM EDT Office Visit [address] [address] Name, MD Rodri [address] [place] [address] documented as of this encounter Goals Goal [...] documented as of this encounter Care Teams Command And Control Relationship Specialty Start Date End Date Name, MD Rodri 230 [place] [address] PCP - General Family Medicine 09/24/15 Ana Pavon PharmD 230 [place] [address] Pharmacist Internal Medicine 04/28/23 [facility] 09/01/24 documented as of this encounter
--- OUTSIDE RECORDS SUMMARY | 2024-12-14 08:02 | XMS_ITS | Encounter Summary ---
Author Organization [employer] Address [address] [place] [address] 7t [place] [address] Care Team Providers Care Network Diagnostic Support Specialist Name Role Phone Name, Rodri WINN Primary Care Provider Ana Pavon PharmD Unavailable [phone] Encounter Details Date Type Department Care Team (Latest Contact Info) Description 08/23/2019 Abstract [facility] CONVERSIONS Dental, Provider, DDS Social [...] 3:00 PM EDT Clinical Support [facility] CHC DIABETES/NTRN [address] [place] [address] Nguyen Ragsdale, ALDO 230 [place] [address] 12/22/2024 11:00 AM EDT Medication Management [facility] MEDICINE [address] [place] [address] Ana Pavon, PharmD 230 [place] [address] 12/22/2024 11:30 AM EDT Office Visit [facility] MEDICINE [address] [place] [address] Name, MD Rodri [address] [place] [address] documented as of this encounter Visit Diagnoses Not on filedocumented in this encounter Care Teams Network Diagnostic Support Specialist Relationship Specialty Start Date End Date Name, MD Rodri [address] [place] [address] PCP - General Family Medicine 09/24/15 Ana Pavon, Mary [address] [place] [address] Pharmacist Internal Medicine 04/28/23 [facility] 09/01/24 documented as of this encounter
--- OUTSIDE RECORDS SUMMARY | 2024-12-14 08:02 | XMS_ITS | Encounter Summary ---
Author Organization [employer] Address [address] [place] [address] 7t [place] [address] Care Team Providers Care Dental Floss Packer Name Role Phone Name, Rodri WINN Primary Care Provider [phone] Ana Pavon PharmD Unavailable [phone] Reason for Visit * Reason Comments Med Refill Encounter Details Date Type Department Care Team ([facility] st Contact Info) Description 04/07/2023 Refill [facility] MEDICINE 230 [place], [place] [phone] Name, MD Rodri 230 [place] [address] Social History Tobacco Use Types Packs/Day Years [...] 10:49 AM EDT Med request came from [facility] who pt uses as a secondary pharmacy. [...] PM EDT Clinical Support [facility] DIABETES/NTRN 505 [place] [address] Nguyen Ragsdale, RD 230 [place] [address] 12/22/2024 11:00 AM EDT Medication Management [address] [address] Ana Pavon PharmD 230 [place] [address] 12/22/2024 11:30 AM EDT Office Visit [address] [address] Name, MD Rodri [address] [place] [address] documented as of this encounter Visit Diagnoses Not on filedocumented in this encounter Care Teams Dental Floss Packer Relationship Specialty Start Date End Date Name, MD Rodri [address] [place] [address] PCP - General Family Medicine 09/24/15 Ana Pavon, PharmD 230 [place] [address] Pharmacist Internal Medicine 04/28/23 [facility] 09/01/24 documented as of this encounter
--- OUTSIDE RECORDS SUMMARY | 2024-12-14 08:02 | XMS_ITS | Encounter Summary ---
Author Organization [employer] Address [address] [place] [address] 7t [place] [address] Care Team Providers Care Optimization Analyst Name Role Phone NameRodri MD Primary Care Provider [phone] Ana Pavon PharmD Unavailable [phone] Encounter Details Date Type Department Care Team (Latest Contact Info) Description 06/25/2022 Abstract [facility] CONVERSIONS Dental, Provider, DDS Social History Tobacco [...] Description 12/14/2024 3:00 PM EDT Clinical Support [facility] CHC DIABETES/NTRN [address] [place] [address] Nguyen Ragsdale, ALDO 230 [place] [address] 12/22/2024 11:00 AM EDT Medication Management [facility] MEDICINE [address] [place] [address] Ana Pavon, PharmD 230 [place] [address] 12/22/2024 11:30 AM EDT Office Visit [facility] MEDICINE [address] [place] [address] NameRodri MD [address] [place] [address] documented as of this encounter Visit Diagnoses Not on filedocumented in this encounter Care Teams Optimization Analyst Relationship Specialty Start Date End Date Name, MD Rodri [address] [place] [address] PCP - General Family Medicine 09/24/15 Ana Pavon, NoelD [address] [place] [address] Pharmacist Internal Medicine 04/28/23 [facility] 09/01/24 documented as of this encounter
--- OUTSIDE RECORDS SUMMARY | 2024-12-14 08:02 | XMS_ITS | Encounter Summary ---
Author Organization [employer] Address [address] [place] [address] 7t [place] [address] Care Team Providers Care Ornamental Metal Worker Apprentice Name Role Phone Name, Rodri WINN Primary Care Provider [phone] Ana Pavon PharmD Unavailable [phone] Reason for Visit * Reason Comments Med Refill Encounter Details Date Type Department Care Team ([facility] Contact Info) Description 03/24/2023 Refill [facility] MEDICINE 230 [place], [place] [phone] Name, MD Rodri 230 [place] [address] Social History Tobacco Use Types Packs/Day Years [...] Upcoming Encounters Date Type Department Care Team ([facility] Contact Info) Description 12/14/2024 3:00 PM EDT Clinical Support [facility] DIABETES/NTRN 505 [place], [place] [phone] Nguyen Ragsdale RD [address] [place] [address] 12/22/2024 11:00 AM EDT Medication Management [address] [address] Ana Pavon PharmD [address] [place] [address] 12/22/2024 11:30 AM EDT Office Visit [address] [address] NameRodri MD [address] [place] [address] documented as of this encounter Visit Diagnoses Not on filedocumented in this encounter Care Teams Ornamental Metal Worker Apprentice Relationship Specialty Start Date End Date Name, MD Rodri [address] [place] [address] [phone] PCP - General Family Medicine 09/24/15 Ana Pavon PharmD [address] [place] [phone] Pharmacist Internal Medicine 04/28/23 [facility] 09/01/24 documented as of this encounter
--- OUTSIDE RECORDS SUMMARY | 2024-12-14 08:02 | XMS_ITS | Encounter Summary ---
Author Organization [employer] Address [address] [place] [address] 7t [place] [address] Care Team Providers Care Public Bath Attendant Name Role Phone NameRodri MD Primary Care Provider [phone] Ana Pavon PharmD Unavailable [phone] Encounter Details Date Type Department Care Team (Latest Contact Info) Description 02/25/2021 Abstract [facility] CONVERSIONS Dental, Provider, DDS Social [...] Description 12/14/2024 3:00 PM EDT Clinical Support [facility] CHC DIABETES/NTRN 505 [place] [address] Nguyen Ragsdale, ALDO 230 [place] [address] 12/22/2024 11:00 AM EDT Medication Management [facility] MEDICINE [address] [place] [address] Ana Pavon, PharmD 230 [place] [address] 12/22/2024 11:30 AM EDT Office Visit [facility] MEDICINE [address] [place] [address] NameRodri MD [address] [place] [address] documented as of this encounter Visit Diagnoses Not on filedocumented in this encounter Care Teams Public Bath Attendant Relationship Specialty Start Date End Date Name, MD Rodri [address] [place] [address] PCP - General Family Medicine 09/24/15 Ana Pavon, NoelD [address] [place] [address] Pharmacist Internal Medicine 04/28/23 [facility] 09/01/24 documented as of this encounter
--- OUTSIDE RECORDS SUMMARY | 2024-12-14 08:02 | XMS_ITS | Clinical Summary ---
Author Organization [employer] Address [address] [place] [address] 7t [place] [address] Care Team Providers Care Manager Billing Name Role Phone Name, Rodir WINN Primary Care Provider [phone] Ana Pavon PharmD Unavailable [phone] Allergies No known active allergies Medications allopurinol (Zyloprim) 100 MG tablet Take 100 mg by mouth in the morning. 06/25/20 22 Active famotidine (Pepcid) 40 MG tablet Take 40 mg by mouth in the morning. 04/21/20 22 Active terazosin (Hytrin) 5 MG capsule Take 5 mg by mouth at bedtime. 03/02/20 23 Active Continuous Blood Gluc Environmental Lead (FreeStyle [place] 2 [place]) deviceIndication s:Poorly controlled diabetes mellitus ([facility]) Use to scan sensor at [...] complication, without long-term current use of insulin ([facility]) Use to test blood sugar [...] complication, with long-term current use of insulin ([facility]) Inject 5 mg under the skin 1 (one) time per week. 2 mL 08/29/20 24 Active aspirin 81 MG EC tabletIndication s:Type 2 diabetes mellitus with other specified complication, without long-term current use of insulin ([facility]),High cholesterol Take 1 tablet (81 mg) by mouth Once per day. 90 tablet 3 11/07/19 25 Active insulin degludec (Tresiba FlexTouch) 100 UNIT/ML injectionIndicat ions:Type 2 diabetes mellitus with other specified complication, without long-term current use of insulin ([facility]) Inject 16 Units under the skin Once daily. 15 mL 1 11/07/19 25 Active pravastatin (Pravachol) 20 MG tabletIndication s:Type 2 diabetes mellitus with other specified complication, without long-term current use of insulin ([facility]),High cholesterol Take 1 tablet (20 mg) by mouth Once daily. 90 tablet 3 11/07/19 25 Active lisinopril 40 MG tabletIndication s:Type 2 diabetes mellitus with other specified complication, without long-term current use of insulin ([facility]),Essent ial hypertension Take 1 tablet [...] Type Department Care Team Description 12/11/2024 Refill [facility] MEDICINE 230 [place] [address] Name, MD Rodir 12/05/2024 Refill [facility] MEDICINE 230 [place], [place] [phone] Name, MD Rodri 11/29/2024 Telephone [facility] MEDICINE [address] [place] [address] Barber Wheeler [place] appt change (Provider out /) 11/10/2024 Refill [facility] MEDICINE [address] [place] [address] Name, MD Rodri 11/09/2024 Orders Only GENERIC EXTERNAL DATA DEPARTMENT Provider, Generic External Data 10/19/2024 10:30 AM EST Nutrition [facility] CHC DIABETES/NTRN 505 [place] [address] Type 2 diabetes mellitus with other specified complication, with long-term current use of insulin ([facility]) 10/19/2024 Travel 10/10/2024 Refill [facility] MEDICINE [address] [place] [address] Rachael Martinez FNP from Last 3 Months Immunizations Name Administration [...] Description 12/14/2024 3:00 PM EDT Clinical Support [facility] DIABETES/NTRN [address] [place] [address] [place] [address] 12/22/2024 11:00 AM EDT Medication Management [facility] MEDICINE [address] [place] [address] Ana Pavon, PharmD 230 [place] [address] 12/22/2024 11:30 AM EDT Office Visit [address] [address] Name, MD Rodri [address] [place] [address] Health Maintenance Due Date Last Done Comments [...] Component 7.6( 11:35 AM EST) No Ana Pavon PharmD Record [...] complication, without long-term current use of insulin ([facility]) LIPID PANEL, STANDARD Routine 06/28/2024 9:45 AM EDT Type 2 diabetes mellitus with other specified complication, with long-term current use of insulin ([facility]) Full PROPHYLAXIS - ADULT Routine [...] complication, with long-term current use of insulin ([facility]) Stage 3 chronic kidney disease, unspecified whether [...] AM EST 11/09/2024 9:57 AM EST Narrative [facility] - 11/10/2024 1:16 PM EST ----- ------- Name: Francisco Lorenzo ?Age/Sex: 79/M ? : 1945 Unit#: [id number] ?? Attend Dr: Carlton Carmen MD ?Re11/09/24 ?Status: DEP SDC ? Location: HO.SSS ?Disch: ? ----- ------- SPEC : [id number] ? RECD: 11/09/24-956 ? STATUS: ??SOUT ? REQ NUM: [id number] ? ARIEL: 11/09/2408 ? SUBM DR: Carlton Carmen MD ? ENTERED: ??11/09/24-1006 ?SP TYPE: Surgical ? OTHR DR: Rodri [...] Copies To: ?? Name,Rodri WINN ?? [address] ?? [place] [address] ?? [phone] ?? Carlton Carmen MD ?? [facility] General Surgeons ?? [address] ?? [place] [address] ?? [phone] ?? [email or web address] ? CONTINUED ON NEXT PAGE ----- ------- Name: Francisco Lorenzo ?Age/Sex: 79/M ? : 1945 Unit#: [id number] ?? Attend Dr: Carlton Carmen MD ?Re11/09/24 ?Status: DEP SDC ? Location: HO.SSS ?Disch: ? ----- ------- SPEC : [id number] ? RECD: 11/09/24 ? STATUS: ??SOUT ? REQ NUM: [id number] ? ARIEL: 11/09/24-835 ? SUBM DR: Carlton Carmen MD ? ENTERED: ??11/09/24-1007 ?SP TYPE: Surgical ? OTHR : Name,Rodri WINN ? ORDERED: ??Gross Micro L3 ? ----- ------- Signed (signature on file) Ramana Tadeo MD 11/10/24 7706 ? ----- ------- ? END OF REPORT ? us Generic External Data Provider LAB CYTOLOGY TARUN SALVADOR Final Result [facility] [address] [place] [phone] * (ABNORMAL) Glucose, Whole Blood (11/09/2024 6:30 AM EST) Glucose, Whole Blood 164(H) 60 - 115 mg/dL [facility] Comment:METER #: [id number] 11/09/2024 6:30 AM EST 11/09/2024 6:34 AM EST us Generic External Data Provider LAB BLOOD ORDERAB LES Final Result [facility] [address] [place] [phone] * (ABNORMAL) POCT HGB A1C (11/06/2024 11:35 AM EST) Hemoglobin A1C 7.6(A) 4.0 - 6.0 % QC Media Lot # [id number] Blood 11/06/2024 11:3 5 AM EST Rodri Name POINT OF CARE TEST ENTER/EDIT OR DERABLES Final Result * (ABNORMAL) Lipid Panel, Standard (06/28/2024 9:45 AM EDT) Triglycerides 161(H) <150 mg/dL [facility] Comment:Desirable Triglyceri de: less than 150 mg/dLBorderline High Triglyceride 150-199 mg/dLHigh Triglyceride: 200-499 mg/dLVery High Triglyceride: greater than or equal to 5OO mg/dL Cholesterol 177 <200 mg/dL [facility] Comment:Desirable Cholestero l: less than 200 mg/dLBorderline High Cholesterol: 200-239 mg/dLHigh Cholesterol: greater than 239 mg/dL LDL Cholesterol Calculated 107(H) <100 mg/dL [facility] Comment:Desirable LDL: less than 100 mg/dLNear Optimal/Above Optimal LDL: 110- 129 mg/dLBorderline High LDL: 130-159 mg/dLHigh LDL: 160-189 mg/dLVery High LDL: greater than or equal to 190 mg/dL HDL Cholesterol 38(L) >40 mg/dL [facility] Comment:Desirable HDL: great er than 40 mg/dL Note: This HDL assay may give artificially low results in patients with liver disease. Blood Venous blood specimen / Unknown 06/28/2024 9:45 AM EDT 06/28/2024 11:12 AM EDT us Rodri Lund MD LAB BLOOD ORDERABLES Final Resul t Performing Organization Address [facility] de Phone Number [facility] [address] [place] [phone] * (ABNORMAL) Albumin, Random Urine W/Creatinine (09/22/2023 10:44 AM EST) Creatinine, Urine 71.61 mg/dL [facility] Microalbumin Urine 125.0 mg/L H [facility] Microalbum Creatinine Ratio Ur 174.5(H) <30 ug/mg cr [facility] Comment:Albumin/Creatinine R atio Reference Ranges: Normal: < 30 ug/mg creatinine Microalbuminuria: 30 - 300 ug/mg creatinineClinical Albuminuria: > 300 ug/mg creatinine Urine (Urine, Random) 09/22/2023 10:44 AM EST 09/22/2023 11:25 AM EST us Rodri Lund MD LAB URINE ORDERABLES Final Resul t Performing Organization Address [facility] de Phone Number [facility] [address] [place] [phone] * (ABNORMAL) Colonoscopy (01/20/2023 1:46 PM [...] ORDERABLE LABS Final Result Performing Organization Address City/State/[facility] Co de Phone Number [facility] [address] from Last 3 Months or Most Recently Relevant to Health Maintenance Insurance [facility] Care Teams Manager Billing Relationship Specialty Start Date End Date Name, MD Rodri [address] [place] [address] PCP - General Family Medicine 09/24/15 Ana Pavon, Mary [address] [place] [address] Pharmacist Internal Medicine 04/28/23 [facility] 09/01/24
== END 2024-12-14 07:59 | disposition home or self-care (01) ==
LOC: HO.XRAY 07:58
PROVIDERS: PCP Internal Medicine Geriatric Medicine; Visit Provider Internal Medicine
DX: K21.9 Gastro-esophageal reflux disease without esophagitis (principal)
CPT/HCPCS: 74220

== ENCOUNTER → 2024-12-14 08:00 | Outpatient (BNV) | payer OTHER, SELFPAY | PROVIDERS: PCP Internal Medicine Geriatric Medicine; Visit Provider Radiology Diagnostic Radiology | DX: K21.9 Gastro-esophageal reflux disease without esophagitis (principal) | CPT/HCPCS: 74220 ==

== ENCOUNTER 2024-12-20 10:45 | Outpatient (AMB) | payer OTHER, SELFPAY ==
--- NOTE | 2024-12-20 10:49 | MHC.OFFVIS ---
Intake Visit Reasons: 3m/labs Intake Note: Patient is present for 3M/LABS Urology Medication:TERAZOSIN,TESTOSTERONE,ALLOPURINOL Antibiotic Allergy:NONE Blood Thinner:ASPIRIN Oracle Fusion Middleware Developer Required: Yes Oracle Fusion Middleware Developer Services: Oracle Fusion Middleware Developer Present Oracle Fusion Middleware Developer Name: Yunier [id number] Allergies No Known Allergies Allergy (Verified 12/20/24 11:24) Medication List - Last Reconciled 12/20/24 by SWETA Fam- allopurinol 100 mg PO QAM amlodipine 10 mg PO DAILY aspirin 81 mg PO DAILY blood sugar diagnostic As directed buspirone 5 mg PO TID docusate sodium (Colace) 200 mg (2 x 100 mg) PO BEDTIME empagliflozin (Jardiance) 10 mg PO DAILY famotidine 40 mg PO QAM ferrous sulfate 325 mg PO QAM flash glucose sensor (FreeStyle Grace 2 Sensor kit) As directed insulin degludec (Tresiba FlexTouch U-100 insulin) 14 units subcut BEDTIME lisinopril 40 mg PO DAILY meclizine 25 mg PO TID PRN multivitamin 1 tab PO QAM omeprazole 20 mg PO DAILY oxycodone 5 mg PO Q4-6H PRN pravastatin 20 mg PO DAILY semaglutide (Ozempic) 0.5 mg subcut QWEEK terazosin 5 mg PO BEDTIME 90 days testosterone 60.75 mg transdermal DAILY 30 days tirzepatide (Mounjaro) 5 mg subcut .QMONDAY HPI Comments Details: Francisco is a pleasant 79 year old Belgian speaking male patient of Dr. Lund. He has a past medical history of acid reflux, chronic constipation, diabetes, depression, normocytic anemia, and rheumatoid arthritis. He presents to the office today for follow-up regarding his hypogonadism and benign prostatic hyperplasia. In discussion with the patient today reports to be doing and feeling well. He reports compliance with testosterone as prescribed however reports to be utilizing 2 pumps daily although prescription provided for 3 pumps daily. We discussed importance of taking medications as prescribed. Recent H&H, testosterone, and PSA results reviewed with the patient today as noted and trended below. He does however report episodes of nocturia as well as urinary urgency and frequency despite compliance with 5 mg of terazosin daily. He otherwise denies hematuria, dysuria, foul smelling urine, changes to urinary stream, flank pain, fever, and or chills. We discussed potential causes of these lower urinary tract symptoms as well as further treatment options and risks and benefits of these treatment options. We discussed bladder triggers and irritants. In office urinalysis results were reviewed with the patient today. We discussed further treatment options of hypogonadism however patient wishes to continue with gel replacement. Discussed at length importance of compliance. We also discussed importance of management and diabetes for improvement in lower urinary tract symptoms as well as overall health and well-being. Discussed reassessment of labs and lower urinary tract symptoms in 3 months obtaining labs in 3 months. He otherwise offers no other issues or concerns at this time. Testosterone: 12/24 155, 02/23 124, 04/25 78, 06/25 495, 10/27 458, 09/27 125, 02/25 156, 09/28 381, 04/28 144, 08/28 142, 12/28 175, 04/29 154, 08/29 139, 12/29 279 Free testosterone: 02/25 30.4, 04/28 30.5, 08/28 32.1, 12/28 37.3, 04/29 26.6, 08/29 29.3, 12/29 65.4 H/H: 11/26 13.9/41.9, 05/29 14.6/45.8, 05/29 14.2/44.4, 08/28 12.9/39.5, 12/28 14.7/44.9, 02/27 13.6/40.4, 04/29 13.7/42.0, 08/29 13.3/40.8,12/29 13.8/42.3 PSA: 02/24 2.2, 09/27 1.7, 04/28 3.0, 12/28 1.8, 08/29 1.5, 12/29 2.6 Plan I will increase his testosterone gel application to three pumps daily to target a stable and optimal testosterone level. The patient continues on terazosin to manage urinary symptoms with instructional guidance focusing on dietary management, particularly fluid restrictions as well as avoiding bladder triggers and irritants that were discussed throughout today's office visit. Continued monitoring through follow-up labs and patient feedback will guide any necessary alterations in therapy. The patient has been informed on the current plan and will alert of any significant changes in his symptoms. Patient was informed and verbally consented to the use of an ambient scribe for clinic note documentation during this visit. Discussion Notes I discussed with the patient that we would increase his testosterone to three pumps daily to target better outcomes. I provided information on benefits, such as improved energy and symptom management, compared to current levels. Risks like potential blood thickening are not present currently. For urinary management, continuing with terazosin is taken with an emphasis on lifestyle changes, mainly evening fluid restriction, to reduce nocturia symptoms. I proposed that changes or severe symptoms not resolving with lifestyle modifications may warrant revisiting medication in the future. We outlined a follow-up lab strategy before the next appointment to track responses effectively. The patient understood and agreed to this approach. [facility] Medical History Urinary incontinence Chronic constipation Diabetes COVID-19 vaccine series started History of depression Ambulates with cane Eosinophilia Leukocytosis Rheumatoid arthritis Normocytic anemia Surgical History History of esophagogastroduodenoscopy (EGD) History of cataract extraction History of back surgery Acid reflux History of colonoscopy History of surgical removal of lesion Family History Mother Diabetes Father No problems noted. Social History Household Members: Spouse Housing: House Are you a primary transitional care liaison to a significant other at home: No Do you presently have visiting nurse or other home services: No 75 years or older and lives alone: No Alcohol intake: never Comment: counts correct Patient Tobacco Use Status: Former Tobacco user e-Cigarette/Vaping Use: Never Used service: No Current occupational status: retired Current occupation: rt handed Review of Systems Const Reports as per HPI Eyes Reports no additional complaints ENT Reports no additional complaints Card Reports as per HPI Resp Reports no additional complaints GI Reports as per HPI Reports as per HPI Neuro Reports as per HPI Psych Reports as per HPI Endo Reports no additional complaints Physical Exam Const General: cooperative, healthy appearing, comfortable, no acute distress, well developed, alert and awake Orientation/consciousness: patient oriented x3 Limitations: no limitations HEENT Head: Yes normal to inspection, Yes normocephalic and Yes atraumatic Ears: hearing grossly normal bilaterally Eyes General: appearance normal, both eyes and all related structures Neck Neck: Yes normal visual inspection and Yes trachea midline Chest Chest palpation & inspection: normal inspection of the chest Resp Effort & Inspection: normal respiratory effort and able to speak in complete sentences Cardio Rate: regular rate GI Inspection: Yes normal to inspection General: Yes no CVA tenderness Back/Spine/Pelvis Back: no CVA tenderness Skin General skin exam: no rashes or lesions noted Neuro General: patient oriented x3 Extrem General: Yes normal to inspection Psych Appearance: grossly normal and well kempt Mental Status: mental status grossly normal Speech and movement: Normal speech and movement present and Clear speech present Affect: normal affect Attitude: cooperative Thought process: Normal thought process present Thought content: Normal thought content present Insight: Fair insight present (Psych) Judgement: Fair judgement present (Psych) Results AMB Urinalysis, Automated UA Leukoctes 0 Gab/uL Last Edit by LAZARUS Calderon on 12/20/24 11:25 UA Nitrite Negative Last Edit by LAZARUS Calderon on 12/20/24 11:25 UA Urobilinogen 0.2 mg/dL Last Edit by LAZARUS Calderon on 12/20/24 11:25 UA Protein 15 mg/dL Last Edit by LAZARUS Calderon on 12/20/24 11:25 UA pH 6.0 Last Edit by LAZARUS Calderon on 12/20/24 11:25 UA Blood 0 Alf/uL Last Edit by LAZARUS Calderon on 12/20/24 11:25 UA Specific [place] 1.015 Last Edit by LAZARUS Calderon on 12/20/24 11:25 UA Ketone Negative Last Edit by LAZARUS Calderon on 12/20/24 11:25 UA Bilirubin 0 mg/dL Last Edit by LAZARUS Calderon on 12/20/24 11:25 UA Glucose 1000 mg/dL Last Edit by LAZARUS Calderon on 12/20/24 11:25 Results Reviewed Results Reviewed: Laboratory Last Values Urine pH (Auto) 6.0 12/20/24 11:24 Specific [place] (Auto) 1.015 12/20/24 11:24 Urine Protein (Auto) 15 mg/dL 12/20/24 11:24 Glucose (UA)(Auto) 1000 mg/dL 12/20/24 11:24 Urine Ketones (Auto) Negative 12/20/24 11:24 Urine Blood (Auto) 0 Alf/uL 12/20/24 11:24 Urine Nitrite (Auto) Negative 12/20/24 11:24 Urine Bilirubin (Auto) 0 mg/dL 12/20/24 11:24 Urine Urobilinogen (Auto) 0.2 mg/dL 12/20/24 11:24 Leukocyte Esterase (Auto) 0 Gab/uL 12/20/24 11:24 Assessment & Plan Assessment & Plan (1) Hypogonadism in male: Code(s): E29.1 - Testicular hypofunction Category: Medical (2) Lower urinary tract symptoms: Code(s): R39.9 - Unspecified symptoms and signs involving the genitourinary system Category: Medical Plan In office urinalysis results reviewed with the patient today; as noted above. Recent testosterone, free testosterone, H&H, and PSA results reviewed with the patient today; as noted above. We discussed importance of taking medications as prescribed; refill provided on testosterone Will continue with testosterone and terazosin as prescribed. We discussed lifestyle modifications to assist with lower urinary tract symptoms We discussed importance of management and diabetes for improvement in lower urinary tract symptoms as well as overall health and well-being. We discussed lifestyle modifications to assist with hypogonadism. Will obtain CBC, PSA, testosterone, and free testosterone in 3 months. Follow-up in 3 months with labs and PVR; or sooner with any issues, concerns, and or questions. Orders: Orders Prostate Specific Antigen 3 Months E29.1 - Testicular hypofunction Testosterone, Free/Total 3 Months E29.1 - Testicular hypofunction AMB Urinalysis Automated Today Z13.9 - Encounter for screening, unspecified Complete Blood Count no Diff 3 Months E29.1 - Testicular hypofunction Medications: Refilled testosterone 3 pumps applied daily - 60.75 mg transdermal DAILY 30 days 150 grams 5RF E29.1 - Testicular hypofunction Patient Instructions: The patient had an opportunity to ask questions regarding the treatment plan. All questions were answered. Physical exam, labs, and imaging were discussed and reviewed in detail. As well as risks, benefits, and discussion of treatment choices. No major barriers to understanding were identified. The patient expressed understanding and agreement with the above treatment plan. The patient was made aware they should contact our office by phone for worsening of their current condition, the appearance of new symptoms, or with any questions or concerns. Compliance is encouraged with any medications and follow up testing that is ordered. It is a privilege to be allowed the opportunity to participate in? your urological care.? Again, if you have any questions or concerns If you have any questions or concerns please do not hesitate to contact me. The office is [phone]. This note is constructed using voice recognition software. While every effort has been made to ensure accuracy software engineer backend errors may have been included. Yours sincerely, BETSY Fam Coding Level of Care Code Est Pt Level 4 (79506) Complex EM visit Add On G2211 Diagnoses Hypogonadism in male E29.1 Lower urinary tract symptoms R39.9 Time Spent (min) 25
--- OUTSIDE RECORDS SUMMARY | 2024-12-20 12:48 | XMS_ITS | Encounter Summary ---
Author Organization [employer] Address [address] [place] [address] 7t [place] [address] Care Team Providers Care Retail Coverage Merchandiser Lead Name Role Phone Name, Rodri WINN Primary Care Provider [phone] Ana Pavon PharmD Unavailable [phone] Reason for Visit * Reason Comments Med Refill Encounter Details Date Type Department Care Team ([facility] st Contact Info) Description 04/07/2023 Refill [facility] MEDICINE [address] [place], [place] [phone] Name, MD Rodri [address] [place] [address] Social History Tobacco Use Types Packs/Day Years [...] 10:49 AM EDT Med request came from [facility] who pt uses as a secondary pharmacy. [...] Care Team (Late st Contact Info) Description 12/21/2024 2:30 PM EDT Clinical Support [facility] DIABETES/NTRN [address] [place] [address] Nguyen Ragsdale, ALDO [address] [place] [address] 12/22/2024 11:00 AM EDT Medication Management [address] [address] Ana Pavon, NoelD [address] [place] [address] 12/22/2024 11:30 AM EDT Office Visit [address] [address] Name, MD Rodri [address] [place] [address] 02/23/2025 9:15 AM EDT Office Visit [address] [address] Adrianna Mathis MD [address] [place] [address] documented as of this encounter Visit Diagnoses Not on filedocumented in this encounter Care Teams Retail Coverage Merchandiser Lead Relationship Specialty Start Date End Date Name, MD Rodri [address] [place], [place] [phone] PCP - General Family Medicine 09/24/15 Ana Pavon PharmD [address] [place] [address] Pharmacist Internal Medicine 04/28/23 [facility] 09/01/24 documented as of this encounter
--- OUTSIDE RECORDS SUMMARY | 2024-12-20 12:48 | XMS_ITS | Encounter Summary ---
Author Organization [employer] Address [address] [place] [address] 7t [place] [address] Care Team Providers Care Furniture Assembly Supervisor Name Role Phone Name, Rodri WINN Primary Care Provider [phone] Ana Pavon PharmD Unavailable [phone] Reason for Visit * Reason Comments Med Refill Encounter Details Date Type Department Care Team ([facility] Contact Info) Description 03/24/2023 Refill [facility] MEDICINE [address] [place], [place] [phone] Name, MD Rodri [address] [place] [address] Social History Tobacco Use Types Packs/Day Years [...] Upcoming Encounters Date Type Department Care Team ([facility] Contact Info) Description 12/21/2024 2:30 PM EDT Clinical Support [facility] DIABETES/NTRN 505 [facility] [place] [address] [place] [address] 12/22/2024 11:00 AM EDT Medication Management [address] [address] Ana Pavon PharmD [address] [place] [address] 12/22/2024 11:30 AM EDT Office Visit [address] [address] Name, MD Rodri [address] [place] [address] 02/23/2025 9:15 AM EDT Office Visit [address] [address] Adrianna Mathis MD [address] [place] [address] documented as of this encounter Visit Diagnoses Not on filedocumented in this encounter Care Teams Furniture Assembly Supervisor Relationship Specialty Start Date End Date Name, MD Rodri [address] [place] [address] PCP - General Family Medicine 09/24/15 Ana Pavon, Mary [address] [place] [address] Pharmacist Internal Medicine 04/28/23 [facility] 09/01/24 documented as of this encounter
--- OUTSIDE RECORDS SUMMARY | 2024-12-20 12:48 | XMS_ITS | Encounter Summary ---
Author Organization [employer] Address [address] [place] [address] 7t [place] [address] Care Team Providers Care Finisher Fib[employer]lass Boat [employer] Name Role Phone Name, Rodri WINN Primary Care Provider [phone] Ana Pavon PharmD Unavailable [phone] Reason for Visit * Reason Comments Med Refill Encounter Details Date Type Department Care Team (Late st Contact Info) Description 04/13/2023 Refill [facility] MEDICINE [address] [place], [place] [phone] Name, MD Rodri [address] [place] [address] Social History Tobacco Use Types Packs/Day Years [...] Department Care Team (Late Contact Info) Description 12/21/2024 2:30 PM EDT Clinical Support [facility] DIABETES/NTRN [address] [place], [place] [phone] [address] [place] [address] 12/22/2024 11:00 AM EDT Medication Management [facility] MEDICINE [address] [place], [place] [address]le[place] [address] Ana Pavon PharmD [facility] [place] [address] 12/22/2024 11:30 AM EDT Office [address] [place] [address] Name, MD Rodri [facility] [place] [address] 02/23/2025 9:15 AM EDT Office Visit [address] [place] [address] Adrianna Mathis MD [address] [place] [address] documented as of this encounter Visit Diagnoses Not on filedocumented in this encounter Care Teams Finisher [employer] Relationship Specialty Start Date End Date Name, MD Rodri [facility] [place] [address] PCP - General Family Medicine 09/24/15 Ana Pavon PharmD [facility] [place] [address] Pharmacist Internal Medicine 04/28/23 [facility] 09/01/24 documented as of this encounter
--- OUTSIDE RECORDS SUMMARY | 2024-12-20 12:48 | XMS_ITS | Encounter Summary ---
Author Organization [employer] Address [address] [facility] 7t [place] [address] Care Team Providers Care Director Of District Office Name Role Phone Name, Rodri WINN Primary Care Provider [phone] Ana Pavon PharmD Unavailable [phone] Reason for Visit * Reason Comments Med Refill Encounter Details Date Type Department Care Team ([facility] st Contact Info) Description 06/23/2024 Refill [facility] MEDICINE 230 [place], [place] [phone] Name, MD Rodri 230 [place] [address] Social History Tobacco Use Types Packs/Day Years [...] Description 12/21/2024 2:30 PM EDT Clinical Support [facility] DIABETES/NTRN 505 [place] [address] [place] [address] 12/22/2024 11:00 AM EDT Medication Management [address] [address] Ana Pavon, PharmD [address] [place] [address] 12/22/2024 11:30 AM EDT Office Visit [address] [address] Name, MD Rodri [address] [place] [address] 02/23/2025 9:15 AM EDT Office Visit [address] [address] Adrianna Mathis MD [address] [place] [address] documented as of this encounter Goals Goal Patient Goal Type Associated Problems Recent Progress Patient-Stated? Author Hemoglobin A1c < 7.5 Result Component 7.6(03/03/202 5 11:35 AM EST) No Ana Pavon PharmD [...] documented as of this encounter Care Teams Director Of District Office Relationship Specialty Start Date End Date Name, MD Rodri [address] [place] [address] PCP - General Family Medicine 09/24/15 Ana Pavon PharmD [address] [place] [address] Pharmacist Internal Medicine 04/28/23 [facility] Care 09/01/24 documented as of this encounter
--- OUTSIDE RECORDS SUMMARY | 2024-12-20 12:48 | XMS_ITS | Encounter Summary ---
Author Organization [employer] Address [address] [facility] 7t [place] [address] Care Team Providers Care Hand Frame Surgical Elastic Knitter Name Role Phone Name, Rodri WINN Primary Care Provider [phone] Ana Pavon PharmD Unavailable [phone] Reason for Visit * Reason Comments Med Refill Encounter Details Date Type Department Care Team ([facility] st Contact Info) Description 11/19/2023 Refill [facility] MEDICINE 230 [place], [place] [phone] Name, MD Rodri [address] [place] [address] Social History Tobacco Use Types Packs/Day Years [...] Description 12/21/2024 2:30 PM EDT Clinical Support [facility] DIABETES/NTRN 505 [place] [address] [place] [address] 12/22/2024 11:00 AM EDT Medication Management [address] [address] Ana Pavon, PharmD [address] [place] [address] 12/22/2024 11:30 AM EDT Office Visit [address] [address] Name, MD Rodri [address] [place] [address] 02/23/2025 9:15 AM EDT Office Visit [address] [address] Adrianna Mathis MD [address] [place] [address] documented as of this encounter Goals Goal [...] documented as of this encounter Care Teams Hand Frame Surgical Elastic Knitter Relationship Specialty Start Date End Date Name, MD Rodri [address] [place] [address] PCP - General Family Medicine 09/24/15 Ana Pavon PharmD [address] [place] [address] Pharmacist Internal Medicine 04/28/23 [facility] Care 09/01/24 documented as of this encounter
--- OUTSIDE RECORDS SUMMARY | 2024-12-20 12:48 | XMS_ITS | Encounter Summary ---
Author Organization [employer] Address [address] [place] [address] [address]t [place] [address] Care Team Providers Care Clerical And Office Support Workers Name Role Phone NameRodri MD Primary Care Provider [phone] Ana Pavon PharmD Unavailable [phone] Encounter Details Date Type Department Care Team (Latest Contact Info) Description 02/25/2021 Abstract [facility] CONVERSIONS Dental, Provider, DDS Social [...] Care Team ( st Contact Info) Description 12/21/2024 2:30 PM EDT Clinical Support [facility] DIABETES/NTRN [address] [place] [address] Nguyen Ragsdale, ALDO 230 [place] [address] 12/22/2024 11:00 AM EDT Medication Management [facility] MEDICINE [address] [place] [address] Ana Pavon, PharmD 230 [place] [address] 12/22/2024 11:30 AM EDT Office Visit [facility] MEDICINE [address] [place] [phone] NameRodri MD [address] [place] [address] 02/23/2025 9:15 AM EDT Office Visit [facility] MEDICINE [address] [place] [address] [phone] Adrianna Mathis MD [address] [place], [place] [phone] documented as of this encounter Visit Diagnoses Not on filedocumented in this encounter Care Teams Clerical And Office Support Workers Relationship Specialty Start Date End Date Name, MD Rodri [address] [place] [address] [phone] PCP - General Family Medicine 09/24/15 Ana Pavon PharmD [address] [place] [address] [phone] Pharmacist Internal Medicine 04/28/23 [facility] 09/01/24 documented as of this encounter
--- OUTSIDE RECORDS SUMMARY | 2024-12-20 12:48 | XMS_ITS | Clinical Summary ---
Author Organization [employer] Address [address] [place] [address] 7t [place] [address] Care Team Providers Care Hydraulic Tester Name Role Phone Name, Rodri WINN Primary Care Provider [phone] Ana Pavon PharmD Unavailable [phone] Allergies No known active allergies Medications allopurinol (Zyloprim) 100 MG tablet Take 100 mg by mouth in the morning. 06/25/20 22 Active famotidine (Pepcid) 40 MG tablet Take 40 mg by mouth in the morning. 04/21/20 22 Active terazosin (Hytrin) 5 MG capsule Take 5 mg by mouth at bedtime. 03/02/20 23 Active Continuous Blood Gluc Full Time Staff Interpreter (FreeStyle Grace 2 Holt) deviceIndication s:Poorly controlled diabetes mellitus ([facility]) Use to scan sensor at [...] complication, without long-term current use of insulin ([facility]) Use to test blood sugar [...] complication, with long-term current use of insulin ([facility]) Inject 5 mg under the skin 1 (one) time per week. 2 mL 08/29/20 24 Active aspirin 81 MG EC tabletIndication s:Type 2 diabetes mellitus with other specified complication, without long-term current use of insulin ([facility]),High cholesterol Take 1 tablet (81 mg) by mouth Once per day. 90 tablet 3 11/07/19 25 Active insulin degludec (Tresiba FlexTouch) 100 UNIT/ML injectionIndicat ions:Type 2 diabetes mellitus with other specified complication, without long-term current use of insulin ([facility]) Inject 16 Units under the skin Once daily. 15 mL 1 11/07/19 25 Active pravastatin (Pravachol) 20 MG tabletIndication s:Type 2 diabetes mellitus with other specified complication, without long-term current use of insulin ([facility]),High cholesterol Take 1 tablet (20 mg) by mouth Once daily. 90 tablet 3 11/07/19 25 Active lisinopril 40 MG tabletIndication s:Type 2 diabetes mellitus with other specified complication, without long-term current use of insulin ([facility]),Essent ial hypertension Take 1 tablet [...] Encounters Date Type Department Care Team Description 12/19/2024 Telephone [facility] MEDICINE [address] [place] [address] Rodolfo Haji MA chartprep 12/14/2024 3:00 PM EDT Clinical Support [facility] CHC DIABETES/NTRN [address] [place] [address] Type 2 diabetes mellitus with other specified complication, with long-term current use of insulin ([facility]) (Primary Dx) 12/14/2024 Travel 12/14/2024 Orders Only [facility] External Provider, [facility] 12/11/2024 Refill [facility] MEDICINE [address] [place] [address] Name, MD Rodri 12/05/2024 Refill [facility] MEDICINE [address] [place] [address] Name, MD Rodri 11/29/2024 Telephone [facility] MEDICINE [address] [place], [place] [phone] Barber Wheeler MA appt change (Provider out /) 11/10/2024 Refill [facility] MEDICINE [address] [place] [address] Name, MD Rodri 11/09/2024 Orders Only GENERIC EXTERNAL DATA DEPARTMENT Provider, Generic External Data 10/19/2024 10:30 AM EST Nutrition [facility] CHC DIABETES/NTRN [address] [place], [place] [phone] Nguyen R[address] Type 2 diabetes mellitus with other specified complication, with long-term current use of insulin ([facility]) 10/19/2024 Travel 10/10/2024 Refill [facility] MEDICINE [address] [place], [place] [phone] Rachael Martinez FNP from Last 3 Months [...] Description 12/21/2024 2:30 PM EDT Clinical Support [facility] DIABETES/NTRN [address] [place] [address] [place] [address] 12/22/2024 11:00 AM EDT Medication Management [address] [address] Ana Pavon, PharmD [address] [place] [address] 12/22/2024 11:30 AM EDT Office Visit [address] [phone] Name, MD Rodri [address] [place] [address] 02/23/2025 9:15 AM EDT Office Visit [address] [address] Adrianna Mathis MD [address] [place] [address] Health Maintenance Due Date Last Done Comments [...] 7.6( 11:35 AM EST) No Ana Pavon, PharmNeftali Record your blood sugar as directed Result Component No Ana Pavon, NoelD Note: Use CGM, ensuring sensor is scanned at least once every 8 hours to capture 24H data. Check BG manually, as directed. Procedures Procedure Name Priority Date/Time Associated Diagnosis Comments FL ESOPHAGUS BARIUM SWALLOW Routine 12/14/2024 8:10 AM EDT GROSS AND MICROSCOPIC LEVEL 3 Routine 11/09/2024 8:36 AM EST GLUCOSE, WHOLE BLOOD Routine 11/09/2024 6:30 AM EST POCT GLYCATED HEMOGLOBIN, TOTAL Routine 11/06/2024 11:35 AM EST Type 2 diabetes mellitus with other specified complication, without long-term current use of insulin ([facility]) LIPID PANEL, STANDARD Routine 06/28/2024 9:45 AM EDT Type 2 diabetes mellitus with other specified complication, with long-term current use of insulin (CMS/HCC) Full PROPHYLAXIS - ADULT Routine 01/11/2024 11:00 [...] with long-term current use of insulin (CMS/HCC) Stage 3 chronic kidney disease, unspecified whether stage 3a or 3b CKD (CMS/HCC) COLONOSCOPY Routine 01/20/2023 1:46 PM EDT DIABETES EYE EXAM Routine 11/11/2022 ZZZ HISTORICAL HEPATITIS A,B,C PROFILE Routine 10/09/2020 1:30 PM EST from Last 3 Months or Most Recently Relevant to Health Maintenance Results * FL Esophagus Barium Swallow (12/14/2024 8:10 AM EDT) Anatomical Region Laterality Modality Head, Neck Radiographic Elinor ging 12/14/2024 8:10 AM EDT Narrative 12/14/2024 10:12 AM EDT ? [facility] ?[address] ?[place] [address] ? Fluoroscopy Report ? Signed ? Patient: Rudy Vargas,Jaxon ?MR#: [id number] ?? [id number] ? : 1945 ?Acct:[id number] ? Age/Sex: 79 / M ?ADM Date: 04/10/25 ? Loc: HO.XRAY ? Attending Dr: Makayla Stanford MD ? Ordering Physician: Makayla Stanford MD ?? Date of Service: 12/14/24 ?? Procedure(s): FL barium swallow ?? Accession Number(s): [id number] ? cc: Name,Rodri WINN; Makayla Stanford MD ? EXAMINATION: ?? XR BARIUM SWALLOW ? CLINICAL INFORMATION: ?? Gastroesophageal reflux disease without esophagitis. ? COMPARISON: ?? None available. ? TECHNIQUE: ?? Routine barium swallow was performed with thick barium and barium ?? coated saltine crackers in upright view. Thin barium was administered ?? in prone lying position. ? FINDINGS: ?? Following oral administration of thick barium and effervescent granules ?? there is normal propagation bolus from the oral cavity through the ?? pharynx, esophagus into stomach without any evidence of obstruction, ?? narrowing or stricture. The course and caliber of the esophagus is ?? normal. There is diminished peristalsis in the esophagus towards the ?? end of study. ? On placing patient in prone lying position and ??oral administration of ?? thin barium there is good distention of esophagus without hiatal ?? hernia. There is suggestion for recurrent sliding hiatal hernia. No ?? gastroesophageal reflux seen. ? FLUOROSCOPY TIME: ?? 2 minutes and 26 seconds ? DOSE AREA PRODUCT: ?? 178.4 uGy-m2 (microgray-meter squared) ? FL/FL barium swallow ?? IMPRESSION: ?? Suspect small sliding hiatal hernia. No reflux seen. ? Diminished esophageal peristalsis at the end of the study. ? Electronically signed by: ??Deon Contreras MD ??12/14/2024 10:09 AM EDT RP ? Dictated By: ?Deon Contreras MD ? Signed By: ?<Electronically signed by Deon Contreras MD in OV> ?12/14/24 1009 ? DD/ 0810 ? TD/TT: 12/14/24 0835 ? Director Of Physical Security: MSM ? Procedure Note Allen, Image - 12/14/[address] [address] Fluoroscopy Report Signed Patient: Francisco Lorenzo [facility]#: [id number] : 6Acct:[id number] Age/Sex: 79 / MADM Date: 12/14/24 Loc: [facility] Attending Dr: Makayla Stanford MD Ordering Physician: Makayla Stanford MD Date of Service: 12/14/24 Procedure(s): FL barium swallow Accession Number(s): [id number] cc: Name,Rodri WINN; Makayla Stanford MD EXAMINATION: XR BARIUM SWALLOW CLINICAL INFORMATION: Gastroesophageal reflux disease without esophagitis. COMPARISON: None available. TECHNIQUE: Routine barium swallow was performed with thick barium and barium coated saltine crackers in upright view. Thin barium was administered in prone lying position. FINDINGS: Following oral administration of thick barium and effervescent granules there is normal propagation bolus from the oral cavity through the pharynx, esophagus into stomach without any evidence of obstruction, narrowing or stricture. The course and caliber of the esophagus is normal. There is diminished peristalsis in the esophagus towards the end of study. On placing patient in prone lying position and oral administration of thin barium there is good distention of esophagus without hiatal hernia. There is suggestion for recurrent sliding hiatal hernia. No gastroesophageal reflux seen. FLUOROSCOPY TIME: 2 minutes and 26 seconds DOSE AREA PRODUCT: 178.4 uGy-m2 (microgray-meter squared) FL/FL barium swallow IMPRESSION: Suspect small sliding hiatal hernia. No reflux seen. Diminished esophageal peristalsis at the end of the study. Electronically signed by: Deon Contreras MD 12/14/2024 10:09 AM EDT Dictated By: Deon Contreras MD Signed By: <Electronically signed by Deon Contreras MD in OV> 12/14/24 1009 DD/ 0810 TD/TT: 12/14/24 0835 Director Of Physical Security: ESTEPHANIE [facility] External Provider IMG FLU OROSCOPY PROCEDURES Final Result * Gross and Microscopic Level 3 (11/09/2024 8:36 AM EST) 11/09/2024 8:36 AM EST 11/09/2024 9:57 AM EST [facility] LABS - 11/10/2024 1:16 PM EST ----- ------- Name: Francisco Lorenzo ?Age/Sex: 79/M ? : 1945 Unit#: [id number] ?? Attend Dr: Carlton Carmen MD ?Re11/09/24 ?Status: DEP SDC ? Location: HO.SSS ?Disch: ? ----- ------- SPEC : [id number] ? RECD: 11/09/24 ? STATUS: ??SOUT ? REQ NUM: [id number] ? ARIEL: 11/09/24 ? SUBM DR: Carlton Carmen MD ? [...] Copies To: ?? Name,Rodri WINN ?? [address] [facility] ?? [place] [address] ?? [phone] ?? Carlton Carmen MD ?? [facility] ?? [address] ?? [place] [address] ?? [phone] ?? [email or web address] ? CONTINUED ON NEXT PAGE ----- ------- Name: Francisco Lorenzo ?Age/Sex: 79/M ? : 1945 Unit#: [id number] ?? Attend Dr: Carlton Carmen MD ?Re11/09/24 ?Status: DEP SDC ? Location: HO.SSS ?Disch: ? ----- ------- SPEC : [id number] ? RECD: 11/09/24-956 ? STATUS: ??SOUT ? REQ NUM: [id number] ? ARIEL: 11/09/24-835 ? SUBM DR: Carlton Carmen MD ? ENTERED: ??11/09/24-1007 ?SP TYPE: Surgical ? OTHR DR: NameRodri MD ? ORDERED: ??Gross Micro L3 ? ----- ------- Signed (signature on file) Ramana Tadeo MD 11/10/24 1316 ? ----- ------- ? END OF REPORT ? Generic External Data Provider LAB CYTOLOGY ORDE RABLES Final Result Performing Organization Address [facility]/ZIP Co de Phone Number [facility]S [address] [place], [place] [phone] * (ABNORMAL) Glucose, Whole Blood (11/09/2024 6:30 AM EST) [facility] Glucose, Whole Blood 164(H) 60 - 115 mg/dL [facility] Comment:METER #: [id number] 11/09/2024 6:30 AM EST 11/09/2024 6:34 AM EST Generic External Data Provider LAB BLOOD ORDERAB LES Final Result Performing Organization Address [facility] Co de Phone Number [facility] [address] [place] [address] [phone] * (ABNORMAL) POCT HGB A1C (11/06/2024 11:35 AM EST) [facility] Hemoglobin A1C 7.6(A) 4.0 - 6.0 % QC Media Lot # [id number] Blood 11/06/2024 11:3 5 AM EST us Rodri Lund MD POINT OF CARE TEST ENTER/EDIT OR DERABLES Final Result * (ABNORMAL) Lipid Panel, Standard (06/28/2024 9:45 AM EDT) Triglycerides 161(H) <150 mg/dL [facility] Comment:Desirable Triglyceri de: less than 150 mg/dLBorderline High Triglyceride 150-199 mg/dLHigh Triglyceride: 200-499 mg/dLVery High Triglyceride: greater than or equal to 5OO mg/dL Cholesterol 177 <200 mg/dL [facility] Comment:Desirable Cholestero l: less than 200 mg/dLBorderline High Cholesterol: 200-239 mg/dLHigh Cholesterol: greater than 239 mg/dL LDL Cholesterol Calculated 107(H) <100 mg/dL [facility] Comment:Desirable LDL: less than 100 mg/dLNear Optimal/Above Optimal LDL: 110- 129 mg/dLBorderline High LDL: 130-159 mg/dLHigh LDL: 160-189 mg/dLVery High LDL: greater than or equal to 190 mg/dL HDL Cholesterol 38(L) >40 mg/dL [facility] Comment:Desirable HDL: great er than 40 mg/dL Note: This HDL assay may give artificially low results in patients with liver disease. Blood Venous blood specimen / Unknown 06/28/2024 9:45 AM EDT 06/28/2024 11:12 AM EDT us Rodri Lund MD LAB BLOOD ORDERABLES Final Resul t [facility] [address] [place] [phone] * (ABNORMAL) Albumin, Random Urine W/Creatinine (09/22/2023 10:44 AM EST) Creatinine, Urine 71.61 mg/dL [facility] Microalbumin Urine 125.0 mg/L [facility] Microalbum Creatinine Ratio Ur 174.5(H) <30 ug/mg cr [facility] Comment:Albumin/Creatinine R atio Reference Ranges: Normal: < 30 ug/mg creatinine Microalbuminuria: 30 - 300 ug/mg creatinineClinical Albuminuria: > 300 ug/mg creatinine Urine (Urine, Random) 09/22/2023 10:44 AM EST 09/22/2023 11:25 AM EST us Rodri Lund MD LAB URINE ORDERABLES Final Resul t [facility] [address] [place] [address] [phone] * (ABNORMAL) Colonoscopy (01/20/2023 1:46 PM [...] HCV infection. 10/09/2020 1:30 PM EST us Madai Vazquez MD HISTORICAL/NON ORDERABLE LABS Final Result [facility] [address] from Last 3 Months or Most Recently Relevant to Health Maintenance Insurance [facility] [employer] (HMO D-SNP) Care Teams Hydraulic Tester Relationship Specialty Start Date End Date Name, MD Rodri [address] [place] [address] PCP - General Family Medicine 09/24/15 Ana Pavon PharmD [address] [place] [address] Pharmacist Internal Medicine 04/28/23 [facility] 09/01/24
--- OUTSIDE RECORDS SUMMARY | 2024-12-20 12:48 | XMS_ITS | Encounter Summary ---
Author Organization [employer] Address [address] [place] [address] 7t [place] [address] Care Team Providers Care Drier Belt Conveyor Name Role Phone NameRodri MD Primary Care Provider Ana Pavon PharmD Unavailable [phone] Encounter Details Date Type Department Care Team (Latest Contact Info) Description 06/25/2022 Abstract [facility] CONVERSIONS Dental, Provider, DDS Social History [...] Description 12/21/2024 2:30 PM EDT Clinical Support [facility] CHC DIABETES/NTRN [address] [place] [address] Nguyen Ragsdale, ALDO [address] [place] [address] 12/22/2024 11:00 AM EDT Medication Management [facility] MEDICINE [address] [place] [phone] Ana Pavon, PharmD [address] [place] [address] 12/22/2024 11:30 AM EDT Office Visit [facility] MEDICINE [address] [place] [phone] NameRodri MD [address] [place] [address] 02/23/2025 9:15 AM EDT Office Visit [facility] MEDICINE [address] [place] [address] [phone] Adrianna Mathis MD [address] [place], [place] [phone] documented as of this encounter Visit Diagnoses Not on filedocumented in this encounter Care Teams Drier Belt Conveyor Relationship Specialty Start Date End Date Name, MD Rodri [address] [place] [address] [phone] PCP - General Family Medicine 09/24/15 Ana Pavon PharmD [address] [place] [address] [phone] Pharmacist Internal Medicine 04/28/23 [facility] 09/01/24 documented as of this encounter
--- OUTSIDE RECORDS SUMMARY | 2024-12-20 12:48 | XMS_ITS | Encounter Summary ---
Author Organization [employer] Address [address] [place] [address] 7t [place] [address] Care Team Providers Care Collar Pointer Name Role Phone Name, Rodri WINN Primary Care Provider [phone] Ana Pavon PharmD Unavailable [phone] Encounter Details Date Type Department Care Team (Latest Contact Info) Description 08/23/[address] [facility] CONVERSIONS Dental, Provider, DDS Social History [...] Description 12/21/2024 2:30 PM EDT Clinical Support [facility] CHC DIABETES/NTRN [address] [place] [address] Nguyen Ragsdale, ALDO [address] [place] [address] 12/22/2024 11:00 AM EDT Medication Management [facility] MEDICINE [address] [place] [address] Ana Pavon, PharmD [address] [place] [address] 12/22/2024 11:30 AM EDT Office Visit [facility] MEDICINE [address] [place] [address] [phone] Name, MD Rodri [address] [place] [address] [phone] 02/23/2025 9:15 AM EDT Office Visit [facility] MEDICINE [address] [place] [address] [phone] Adrianna Mathis MD [address] [place], [place] [phone] documented as of this encounter Visit Diagnoses Not on filedocumented in this encounter Care Teams Collar Pointer Relationship Specialty Start Date End Date Name, MD Rodri [address] [place] [address] [phone] PCP - General Family Medicine 09/24/15 Ana Pavon PharmD [address] [place] [address] [phone] Pharmacist Internal Medicine 04/28/23 [facility] 09/01/24 documented as of this encounter
--- OUTSIDE RECORDS SUMMARY | 2024-12-20 12:48 | XMS_ITS | Clinical Summary ---
Author Organization [facility] Address [address] [address] Phone Care Team Providers Care Website/Blog Editor Name Role Phone Name, Rodri WINN Primary [...] Office Visit [facility] [address] [phone] Byron Rodas MD [address] [address] Health Maintenance Due Date Last [...] 05/22/2024, , 06/24/2021, Additional history exists Insurance [facility] ([id number]) [facility] ([id number]) Care Teams Website/Blog Editor Relationship Specialty Start Date End Date Name, MD Rodri [address] [place] [address] [phone] PCP - General Internal Medicine 06/25/21
--- OUTSIDE RECORDS SUMMARY | 2024-12-20 12:48 | XMS_ITS | Encounter Summary ---
Author Organization [employer] Address [address] [facility] 7t [place] [address] Care Team Providers Care Reed Maker Name Role Phone Name, Rodri WINN Primary Care Provider [phone] Ana Pavon PharmD Unavailable [phone] Reason for Visit * Reason Onset Date Comments chartprep 12/19/2024 Encounter Details Date Type Department Care Team (Late st Contact Info) Description 12/19/2024 Telephone [facility] MEDICINE [address] [place], [place] [phone] Rodolfo Haji [place] chartprep Social History Tobacco Use Types Packs/Day Years [...] encounter Miscellaneous Notes * Telephone Encounter - Rodolfo Haji [place] - 12/19/2024 2:38 PM EDT Chart Prep Labs: done Images: done Referrals: complete Vaccines due: no updates Screenings: eye exam Overdue care gaps: SDOH, PHQ-9, DOMENICA-7, Oral health screening, and Disability screen documented in this encounter Plan of Treatment Upcoming Encounters Date Type Department Care Team (Late st Contact Info) Description 12/21/2024 2:30 PM EDT Clinical Support [facility] CHC DIABETES/NTRN [address] [place] [address] Nguyen Ragsdale, RD [address] [place] [address] 12/22/2024 11:00 AM EDT Medication Management [address] [address] Ana Pavon, PharmD [address] [place] [address] 12/22/2024 11:30 AM EDT Office Visit [address] [address] Name, MD Rodri [address] [place] [address] 02/23/2025 9:15 AM EDT Office Visit [facility] MEDICINE [address] [place] [address] Adrianna Mathis MD [address] [place] [address] documented as of this encounter Goals Goal Patient Goal Type Associated Problems Recent Progress Patient-Stated? Author Hemoglobin A1c < 7.5 Result Component 7.6( 5 11:35 AM EST) No Ana Pavon [...] documented as of this encounter Care Teams Reed Maker Relationship Specialty Start Date End Date Name, MD Rodri [address] [place] [address] PCP - General Family Medicine 09/24/15 Ana Pavon PharmD [address] [place] [phone] Pharmacist Internal Medicine 04/28/23 [facility] 09/01/24 documented as of this encounter
== END 2024-12-20 11:26 | disposition home or self-care (01) ==
LOC: HO.HUSH 10:46
PROVIDERS: PCP Internal Medicine Geriatric Medicine; Visit Provider Nurse Practitioner Family
DX: E29.1 Testicular hypofunction (principal); R39.9 Unspecified symptoms and signs involving the genitourinary system; Z13.9 Encounter for screening, unspecified
CPT/HCPCS: 99214; G2211

== ENCOUNTER → 2024-12-20 10:45 | Outpatient (BNVA) | payer OTHER, SELFPAY | PROVIDERS: PCP Internal Medicine Geriatric Medicine; Visit Provider Nurse Practitioner Family | DX: E29.1 Testicular hypofunction (principal); R39.9 Unspecified symptoms and signs involving the genitourinary system | CPT/HCPCS: 81003; 99212 ==

== ENCOUNTER 2024-12-22 12:15 | Outpatient (REF) | payer OTHER, SELFPAY ==
--- OUTSIDE RECORDS SUMMARY | 2024-12-22 13:05 | XMS_ITS | Clinical Summary ---
Author Organization [facility] Address [address] [address] Phone Care Team Providers Care Content Engineer Name Role Phone Name, Rodri WINN Primary Care Provider [phone] Allergies Active Allergy Reactions Criticality Noted Date [...] Office Visit [facility] [address] [address] Byron Rodas MD [address] [address] Health Maintenance Due Date Last [...] 05/22/2024, , 06/24/2021, Additional history exists Insurance [facility] ([id number]) [facility] ([id number]) Care Teams Content Engineer Relationship Specialty Start Date End Date Name, MD Rodri [address] [place] [address] [phone] PCP - General Internal Medicine 06/25/21
--- OUTSIDE RECORDS SUMMARY | 2024-12-22 13:05 | XMS_ITS | Encounter Summary ---
Author Organization [employer] Address [address] [facility] 7t [place] [address] Care Team Providers Care Correctional Probation Officer Name Role Phone Name, Rodri WINN Primary Care Provider [phone] Ana Pavon PharmD Unavailable [phone] Reason for Visit * Reason Comments Med Refill Encounter Details Date Type Department Care Team ([facility] st Contact Info) Description 06/23/2024 Refill [facility] MEDICINE [address] [place], [place] [phone] Name, MD Rodri [address] [place] [address] Social History Tobacco Use Types Packs/Day Years [...] Care Team (Late st Contact Info) Description 01/25/2025 3:00 PM EDT Clinical Support [facility] DIABETES/NTRN [address] [place] [address] [place] [address] 01/30/2025 10:00 AM EDT Medication Management [address] [address] Ana Pavon, PharmD [address] [place] [address] 02/23/2025 9:15 AM EDT Office Visit [address] [address] Adrianna Mathis MD [address] [place] [address] documented as of this encounter Goals Goal [...] documented as of this encounter Care Teams Correctional Probation Officer Relationship Specialty Start Date End Date Name, MD Rodri [address] [place] [address] PCP - General Family Medicine 09/24/15 Ana Pavon PharmD [address] [place] [address] Pharmacist Internal Medicine 04/28/23 [facility] 09/01/24 documented as of this encounter
--- OUTSIDE RECORDS SUMMARY | 2024-12-22 13:05 | XMS_ITS | Encounter Summary ---
Author Organization [employer] Address [address] [facility] 7t [place] [address] Care Team Providers Care Loan Adviser Name Role Phone Name, Rodri WINN Primary Care Provider [phone] Ana Pavon PharmD Unavailable [phone] Encounter Details Date Type Department Care Team (Latest Contact Info) Description 08/23/2019 Abstract [facility] CONVERSIONS Dental, Provider, DDS Social History [...] Description 01/25/2025 3:00 PM EDT Clinical Support [facility] CHC DIABETES/NTRN [address] [place] [address] [place] [address] 01/30/2025 10:00 AM EDT Medication Management [facility] MEDICINE [address] [place] [address] [phone] Ana Pavon, PharmD [address] [place] [address] 02/23/2025 9:15 AM EDT Office Visit [facility] MEDICINE [address] [place] [address] [phone] Adrianna Mathis MD [address] [place] [address] documented as of this encounter Visit Diagnoses Not on filedocumented in this encounter Care Teams Loan Adviser Relationship Specialty Start Date End Date Name, MD Rodri [address] [place] [address] PCP - General Family Medicine 09/24/15 Ana Pavon PharmD [address] [place] [address] Pharmacist Internal Medicine 04/28/23 [facility] 09/01/24 documented as of this encounter
--- OUTSIDE RECORDS SUMMARY | 2024-12-22 13:05 | XMS_ITS | Encounter Summary ---
Author Organization [employer] Address 75 [facility] 7t [place] [address] Care Team Providers Care Civil Rights Attorney Name Role Phone Name, Rodri WINN Primary Care Provider [phone] Ana Pavon PharmD Unavailable [phone] Reason for Visit * Reason Comments Follow-up Encounter Details Date Type Department Care Team ([facility] st Contact Info) Description 12/22/2024 11:30 AM EDT Office Visit [facility] MEDICINE 230 [place], [place] [phone] Name, MD Rodri [address] [place] [address] Type 2 diabetes mellitus with other specified complication, with long-term current use of insulin ([facility]) (Primary Dx); Essential hypertension Social History Tobacco Use Types Packs/Day Years Used Date Smoking Tobacco: Former Cigarettes Passive Smoke Exposure: Past Smokeless Tobacco: Never Alcohol Use Standard Drinks/Week Comments Never 0 (1 standard drink = 0.6 oz pur e alcohol) Depression Answer Date Recorded Patient Health Questionnaire-9 Score 5 12/22/2024 Patient Health Questionnaire-9 Score 5 12/22/2024 Last PHQ-9: Questionnaire Data Not on file 0 12/22/2024 Housing Stability Answer Date Recorded What is [...] Date Recorded Patient Health Questionnaire-2 Score 0 12/22/2024 Sex and Gender Information Value Date Recorded Sex Assigned at Male 07/06/2022 10:18 AM EDT Legal Sex Male 10:18 AM EDT Gender Identity Male 07/06/2022 10:18 AM EDT Sexual Orientation Choose not to disclose 2021 10:18 AM EDT documented as of this encounter Last Filed Vital Signs Vital Sign Reading Time Taken Comments Blood Pressure 120/78 12/22/2024 12:05 PM EDT Pulse 75 12/22/2024 11:49 AM EDT Temperature 36.9 ??C (98.4 ??F) 12/22/2024 11:49 AM E DT Respiratory Rate 18 12/22/2024 11:49 AM EDT Oxygen Saturation 98% 12/22/2024 11:49 AM EDT Inhaled Oxygen Concentration - - Weight 64.6 kg (142 lb 6.4 oz) 12/22/2024 11:49 AM EDT Height 152.4 cm (5') 12/22/2024 11:49 AM EDT Body Mass Index 27.81 12/22/2024 11:49 AM EDT documented in this encounter Plan of Treatment Upcoming Encounters Date Type Department Care Team (Late st Contact Info) Description 01/25/2025 3:00 PM EDT Clinical Support [facility] DIABETES/NTRN [address] [place] [address] [place], [place] [phone] 01/30/2025 10:00 AM EDT Medication Management [facility] MEDICINE [address] [place], [place] [phone] Ana Pavon, PharmD [address] [place], [place] [phone] 02/23/2025 9:15 AM EDT Office Visit [facility] MEDICINE [address] [place] [address] Adrianna Mathis MD [address] [place] [address] Scheduled Orders Name Type Priority Associated Diagnoses Orde r Schedule Albumin, Random Urine W/Creatinine Lab Routine Type 2 diabetes mellitus with other specified complication, with long-term current use of insulin ([facility]) Essential hypertension Expected: 12/22/2024 (Approximate), Expires: 12/22/2025 documented as of this encounter Goals Goal [...] Date/Time Associated Diagnosis Comments POCT GLUCOSE Routine 12/22/2024 11:51 AM EDT Type 2 diabetes mellitus with other specified complication, with long-term current use of insulin ([facility]) documented in this encounter Results * POCT Glucose (12/22/2024 11:51 AM EDT) [facility] Glucose Blood, POC 128 60 - 200 mg/dL QC Media Lot # [id number] Lot# Expiration Date [id number] Blood Capillary blood specimen / Unknown 12/22/2024 11:51 AM EDT us Rodri Lund MD POINT OF CARE TEST ENTER/EDIT OR DERABLES Final Result documented in this encounter Visit Diagnoses Diagnosis Type 2 diabetes mellitus with other specified complication, with long-term current use of insulin ([facility])- Primary Essential hypertension Unspecified essential hypertension documented in this encounter Additional Health Concerns Assessment Noted Time PHQ-9 Depression Total Score: 5 12/23/19 25 12:10 PM EDT documented as of this encounter Care Teams Civil Rights Attorney Relationship Specialty Start Date End Date Name, MD Rodri [address] [place] [address] PCP - General Family Medicine 09/24/15 Ana Pavon PharmD [address] [place] [address] Pharmacist Internal Medicine 04/28/23 [facility] 09/01/24 documented as of this encounter
--- OUTSIDE RECORDS SUMMARY | 2024-12-22 13:05 | XMS_ITS | Encounter Summary ---
Author Organization [employer] Address 75 [facility] 7t [place] [address] Care Team Providers Care Qc Analyst Name Role Phone Name, Rodri WINN Primary Care Provider [phone] Ana Pavon PharmD Unavailable [phone] Reason for Visit * Reason Comments Med Refill Encounter Details Date Type Department Care Team (Late Contact Info) Description 04/13/2023 Refill [facility] MEDICINE 230 [place], [place] [phone] Name, MD Rodri 230 [place], [place] [phone] Social History Tobacco Use Types Packs/Day Years [...] Department Care Team (Late Contact Info) Description 01/25/2025 3:00 PM EDT Clinical Support [facility] CHC DIABETES/NTRN [address] [place], [place] [phone] Nguyen Ragsdale RD [address] [place], [place] [phone] 01/30/2025 10:00 AM EDT Medication Management [facility] MEDICINE [address] [place] [phone] Ana Pavon PharmD [address] [place] [address] 02/23/2025 9:15 AM EDT Office Visit [facility] MEDICINE [address] [place] [address] Adrianna Mathis MD [address] [place] [address] documented as of this encounter Visit Diagnoses Not on filedocumented in this encounter Care Teams Qc Analyst Relationship Specialty Start Date End Date Name, MD Rodri [address] [place] [phone] PCP - General Family Medicine 09/24/15 Ana Pavon PharmD [address] [place] [address] Pharmacist Internal Medicine 04/28/23 [facility] 09/01/24 documented as of this encounter
--- OUTSIDE RECORDS SUMMARY | 2024-12-22 13:05 | XMS_ITS | Encounter Summary ---
Author Organization [employer] [facility] Address 75 [facility] 7t [place] [address] Care Team Providers Care Starchmaker Name Role Phone Name, Rodri WINN Primary Care Provider [phone] Ana Pavon PharmD Unavailable [phone] Encounter Details Date Type Department Care Team (Latest Contact Info) Description 06/25/2022 Abstract [facility] CONVERSIONS Dental, Provider, DDS Social History [...] Description 01/25/2025 3:00 PM EDT Clinical Support [facility] CHC DIABETES/NTRN [address] [place] [address] [place] [address] 01/30/2025 10:00 AM EDT Medication Management [facility] MEDICINE [address] [place] [address] [phone] Ana Pavon, PharmD [address] [place] [address] 02/23/2025 9:15 AM EDT Office Visit [facility] MEDICINE [address] [place] [address] Adrianna Mathis MD [address] [place] [address] documented as of this encounter Visit Diagnoses Not on filedocumented in this encounter Care Teams Starchmaker Relationship Specialty Start Date End Date Name, MD Rodri [address] [place] [address] [phone] PCP - General Family Medicine 09/24/15 Ana Pavon PharmD [address] [place] [phone] Pharmacist Internal Medicine 04/28/23 [facility] 09/01/24 documented as of this encounter
--- OUTSIDE RECORDS SUMMARY | 2024-12-22 13:05 | XMS_ITS | Encounter Summary ---
Author Organization [employer] Address [address] [facility] [address] 7t [place] [address] Care Team Providers Care Welding Machine Operator Electro Gas Name Role Phone Name, Rodri WINN Primary Care Provider [phone] Ana Pavon PharmD Unavailable [phone] Encounter Details Date Type Department Care Team (Latest Contact Info) Description 12/21/2024 2:30 PM EDT Clinical Support [facility] DIABETES/NTRN [address] [place], [place] [phone] Nguyen Ragsdale, RD [address] [place], [place] [phone] Type 2 diabetes mellitus with other specified complication, with long-term current use of insulin ([facility]) (Primary Dx) Social History Tobacco Use Types Packs/Day Years [...] AM EDT documented as of this encounter Progress Notes * Nguyen Ragsdale, ALDO - 12/21/2024 2:30 PM EDT In Person Visit Medical Diagnosis: E11.69, Z79.4 Type 2 diabetes mellitus with other specified complication, with long-term current use of insulin Anthropometrics: On 10/19/2024, Ht:5' (1.524 m), Wt:141 lb 9.6 oz (64.2 kg), BMI: Body mass index is 27.65 kg/m??. Assessment: Patient (Pt) accepted nutrition education assessment appointment with ALDO. RD is using weight taken on 10/19/2024 for this appointment. [email or web address] wool hat sanding machine operator, Nancy longo. Today, Pt finished the 2nd half of First nutrition education assessment appointment. RD gave diabetes mellitus nutrition education, portion control, explanation of carbohydrates, proteins and fats. In addition, RD used plastic food models to show portion control, plating of meals. RD wrote out a Tailored made diabetic menu plan for Pt with foods he likes to eat and foods RD suggested to try and Pt agreed to try them. Carbohydrate intake per day estimated to be: 6-8 servings per day with tailor made diabetic menu plan. Pt took pictures of foods that RD has suggested, such as: 647 bread and Yellow Chip site for chocolate and sweets that are almost sugar free. Pt's daughter took pictures last time and Pt wanted the on his phone too. A follow up appointment is scheduled in the last week of January 2025. Food Allergies: NKFA Exercise: Walk about 30 minutes per day . Ride stationary bike for at least 20 - 30 minutes 2 x's per week Food Intolerance: None mentioned Food Preferences: Chocolate, breads, rice, beans, oatmeal, ham, cheeses, chicken, beef, pork, turkey, eggs, margarine, water, juices, milk Food Dislikes: Didn't say Frequency of Eating Out/ Restaurant: Not the norm Who Cooks?: Partner and Daughter How much caffeine?: coffee 1/2 - 1 cup /day How much sugary beverages?: Didn't say Diet History: Intake was not taken today. Please see note dated 10/19/2024 for intake. Nutrition Diagnosis: NI-5.8.3 Inappropriate intake of types of carbohydrate, such as: chocolate, bread, rice to name a few, related to food and knowledge deficit as evidence by 24 hour recall/ typical daily intake and A1C % taken on 07/22/2024 at 8.9%; and on, 08/24/2024, glucose reading at 234. Initial Nutrition Therapy: Education provided about relation between healthy eating and health, MNT for weight management including: three meal per day with two carbohydrates per meal, a fresh salad (2-2 1/2 cups) at both lunch and dinner; one carbohydrate for mid- morning and mid-afternoon; portion controls; how to build a plate; food exchanges between food groups; importance of fiber; how to combine different fibers intodiet. In addition, education on MNT for label reading; uses of natural spices and herbs for flavoring; and, MNT for different oils/ fats, no trans fats and no hydrogenated oils. Goals: Eat two carbohydrates for breakfast, lunch and dinner Eat one carbohydrate for mid morning and mid afternoon snacks Eat a fresh salad > one cup at both lunch and dinner Eat protein and fats as advised in meal plan Drink water as beverage of choice-> 6-8 glasses and/ or Crystal Light/ Sugar free Exercise at least 30 minutes per day Use extra virgin olive oil(EVOO) after cooking on foods-> don't cook with EVOO Monitoring and Evaluation: Indicator Criteria Adherence frequency of eating, portion controls, carbohydrate exchanges, protein intake Weight Loss BMI, exercise routine and frequency Glucose control A1C, blood sugars Lipid control Lipid panel Provider: Nguyen Ragsdale RD, LDN documented in this encounter Plan of Treatment Upcoming Encounters Date Type Department Care Team (Late st Contact Info) Description 01/25/2025 3:00 PM EDT Clinical Support [facility] DIABETES/NTRN 505 [place], [place] [phone] Nguyen Ragsdale RD [address] [place] [address] 01/30/2025 10:00 AM EDT Medication Management [facility] MEDICINE [address] [place] [phone] Ana Pavon PharmD [address] [place] [phone] 02/23/2025 9:15 AM EDT Office Visit [facility] MEDICINE [address] [place] [address] Adrianna Mathis MD [address] [place] [phone] documented as of this encounter Goals Goal [...] documented as of this encounter Visit Diagnoses Diagnosis Type 2 diabetes mellitus with other specified complication, with long-term current use of insulin ([facility])- Primary documented in this encounter Additional Health Concerns Assessment Noted Time PHQ-9 Depression Total Score: 0 10/15/19 24 10:57 AM EST documented as of this encounter Care Teams Welding Machine Operator Electro Gas Relationship Specialty Start Date End Date Name, MD Rodri [address] [phone] PCP - General Family Medicine 09/24/15 Ana Pavon, Mary [address] [place] [phone] Pharmacist Internal Medicine 04/28/23 [facility] 09/01/24 documented as of this encounter
--- OUTSIDE RECORDS SUMMARY | 2024-12-22 13:05 | XMS_ITS | Encounter Summary ---
Author Organization [employer] Address 75 [facility] 7t [place] [address] Care Team Providers Care Bulk Tank Driver Name Role Phone Name, Rodri WINN Primary Care Provider [phone] Ana Pavon PharmD Unavailable [phone] Reason for Visit * Reason Comments Med Refill Encounter Details Date Type Department Care Team ([facility] st Contact Info) Description 11/19/2023 Refill [facility] MEDICINE [address] [place], [place] [phone] Name, MD Rodri [address] [place] [address] Social History Tobacco Use Types Packs/Day Years [...] Description 01/25/2025 3:00 PM EDT Clinical Support [facility] DIABETES/NTRN [address] [place] [address] [place] [address] 01/30/2025 10:00 AM EDT Medication Management [address] [address] Ana Pavon, PharmD [address] [place] [address] 02/23/2025 9:15 AM EDT Office Visit [address] [address] Adrianna Mathis MD [address] [place] [address] documented as of this encounter Goals Goal [...] documented as of this encounter Care Teams Bulk Tank Driver Relationship Specialty Start Date End Date Name, MD Rodri [address] [place] [address] PCP - General Family Medicine 09/24/15 Ana Pavon PharmD [address] [place] [address] Pharmacist Internal Medicine 04/28/23 [facility] 09/01/24 documented as of this encounter
--- OUTSIDE RECORDS SUMMARY | 2024-12-22 13:05 | XMS_ITS | Clinical Summary ---
Author Organization [employer] Address [address] [facility] 7t [place] [address] Care Team Providers Care Commercial Project Manager Name Role Phone Name, Rodri WINN Primary Care Provider [phone] Ana Pavon PharmD Unavailable [phone] Allergies No known active allergies Medications allopurinol (Zyloprim) 100 MG tablet Take 100 mg by mouth in the morning. 06/25/20 22 Active famotidine (Pepcid) 40 MG tablet Take 40 mg by mouth in the morning. 04/21/20 22 Active terazosin (Hytrin) 5 MG capsule Take 5 mg by mouth at bedtime. 03/02/20 23 Active Continuous Blood Gluc Manager [facility] Home (FreeStyle Grace 2 Trinidad) deviceIndication s:Poorly controlled diabetes mellitus ([facility]) Use to scan sensor at least every 8 hours, as directed, for CGM 1 each 04/28/20 23 Active insulin pen needle 32G x 4 mm miscIndications: Poorly controlled diabetes mellitus ([facility]) Use to inject insulin 1 time daily 100 each 3 11/22/19 24 Active glucose blood (FreeStyle Precision Cosme Test) test stripIndications :Type 2 diabetes mellitus with other specified complication, without long-term current use of insulin ([facility]) Use to test blood sugar [...] long-term current use of insulin (CMS/[facility]) Inject 5 mg under the skin 1 (one) time per week. 2 mL 08/29/20 Active aspirin 81 MG EC tabletIndication s:Type 2 diabetes mellitus with other specified complication, without long-term current use of insulin (CMS/HCC),High cholesterol Take 1 tablet (81 mg) by mouth Once per day. 90 tablet 3 11/07/19 25 Active insulin degludec (Tresiba FlexTouch) 100 UNIT/ML injectionIndicat ions:Type 2 diabetes mellitus with other specified complication, without long-term current use of insulin (CMS/HCC) Inject 16 Units under the skin Once daily. 15 mL 1 11/07/19 25 Active pravastatin (Pravachol) 20 MG tabletIndication s:Type 2 diabetes mellitus with other specified complication, without long-term current use of insulin (CMS/HCC),High cholesterol Take 1 tablet (20 mg) by mouth Once daily. 90 tablet 3 11/07/19 25 Active lisinopril 40 MG tabletIndication s:Type 2 diabetes mellitus with other specified complication, without long-term current use of insulin (CMS/HCC),Essent ial hypertension Take 1 tablet (40 mg) [...] AT BEDTIME 90 tablet 12/12/19 25 Active clotrimazole (Lotrimin) 1 % cream apply to the affected area(s) twice daily 11/07/19 25 Active Multiple Vitamin (Multivitamin) tablet Take [...] Encounters Date Type Department Care Team Description 12/22/2024 11:30 AM EDT Office Visit [facility] [address] [place] [phone] Name, MD Rodri Type 2 diabetes mellitus with other specified complication, with long-term current use of insulin ([facility]) (Primary Dx); Essential hypertension 12/22/2024 Travel 12/21/2024 2:30 PM EDT Clinical Support [facility]NTRN [address] [place] [address] Type 2 diabetes mellitus with other specified complication, with long-term current use of insulin (CMS/HCC) (Primary Dx) 12/21/2024 Travel 12/19/2024 Telephone [facility] [address] [facility] [place] [address] Rodolfo Haji MA chartprep 12/14/2024 3:00 PM EDT Clinical Support [facility] [address] [place] [address] Type 2 diabetes mellitus with other specified complication, with long-term current use of insulin (CMS/HCC) (Primary Dx) 12/14/2024 Travel 12/14/2024 Orders Only [facility] External Provider, [facility] 12/11/2024 Refill [facility] [address] [facility] [place] [address] Rodri Lund MD 12/05/2024 Refill [facility] [address] [facility] [place] [address] Rodri Lund MD 11/29/2024 Telephone [facility] [address] [facility] [place] [address] Barber Wheeler [place] appt change (Provider out /) 11/10/2024 Refill [facility] [address] [facility] [place] [place] [address] Rodri Lund MD 11/09/2024 Orders Only GENERIC EXTERNAL DATA DEPARTMENT Provider, Generic External Data 10/19/2024 10:30 AM EST Nutrition [facility] [address] [place] [address] Type 2 diabetes mellitus with other specified complication, with long-term current use of insulin (CMS/HCC) 10/19/2024 Travel 10/10/2024 Refill [facility] [address] [facility] [place] [address] Rachael Martinez FNP from Last 3 Months [...] Mass Index 27.81 12/22/2024 11:49 AM EDT Plan of Treatment Upcoming Encounters Date Type Department Care Team (Late st Contact Info) Description 01/25/2025 3:00 PM EDT Clinical Support [facility] [address] [place] [address] Nguyen Ragsdale, ALDO [address] [place], [place] [phone] 01/30/2025 10:00 AM EDT Medication Management [facility] [address] [place] [address] Ana Pavon, Mary [address] [place] [address] 02/23/2025 9:15 AM EDT Office Visit [facility] [address] [place] [address] Adrianna Mathis MD [address] [place] [address] Health Maintenance Due Date Last Done Comments CT Colonography 1945 FIT DNA/Cologuard 1945 FIT 1945 FOBT 1945 Sigmoidoscopy 1945 Dental Oral Exam 07/14/2024 01/11/2024 Dental Prophylaxis 07/14/2024 01/11/2024 Diabetes: Foot Exam 09/22/2024 09/22/2023, 09/22/2023, 09/22/2023, Additional history exists Diabetes: Urine Protein Screening 09/22/2024 09/22/2023, 10/15/2022, 07/06/2022, Additional history exists SDOH Screening 10/15/2024 10/15/2023 Eye Exam 11/11/2024 11/11/2022 Dental X-Ray: Bitewings 01/11/2025 01/11/2024 Diabetes: Hemoglobin A1C 02/06/2025 025, 07/12/2024, 04/19/2024, Additional history exists Lipid Panel 06/28/2025 06/28/2024, 09/0 01/2023, 07/06/2022, Additional history exists Alcohol/Substance Use Screening 12/22/2025 12/22/2024 Depression Screening 12/22/2025 12/22/2024, 12/23/19 Tobacco Screening 12/22/2025 12/22/2024 Colonoscopy 01/20/2026 01/20/2023, 12/14/2022 Colorectal Cancer Screening [...] complication, with long-term current use of insulin ([facility]) FL ESOPHAGUS BARIUM SWALLOW Routine 12/14/2024 8:10 AM EDT GROSS AND MICROSCOPIC LEVEL 3 Routine 11/09/2024 8:36 AM EST GLUCOSE, WHOLE BLOOD Routine 11/09/2024 6:30 AM EST POCT GLYCATED HEMOGLOBIN, TOTAL Routine 11/06/2024 11:35 AM EST Type 2 diabetes mellitus with other specified complication, without long-term current use of insulin ([facility]) LIPID PANEL, STANDARD Routine 06/28/2024 9:45 AM EDT Type 2 diabetes mellitus with other specified complication, with long-term current use of insulin ([facility]) Full PROPHYLAXIS - ADULT Routine [...] complication, with long-term current use of insulin ([facility]) Stage 3 chronic kidney disease, unspecified whether stage 3a or 3b CKD ([facility]) COLONOSCOPY Routine 01/20/2023 1:46 PM EDT DIABETES EYE EXAM Routine 11/11/2022 ZZZ HISTORICAL HEPATITIS A,B,C PROFILE Routine 10/09/2020 1:30 PM EST from Last 3 Months or Most Recently Relevant to Health Maintenance Results * POCT Glucose (12/22/2024 11:51 AM EDT) Glucose Blood, POC 128 60 - 200 mg/dL QC Media Lot # [id number] Lot# Expiration Date [id number] Blood Capillary blood specimen / Unknown 12/22/2024 11:51 AM EDT us Rodri Lund MD POINT OF CARE TEST ENTER/EDIT OR DERABLES Final Result * FL Esophagus Barium Swallow (12/14/2024 8:10 AM EDT) Anatomical Region Laterality Modality Head, Neck Radiographic Elinor ging 12/14/2024 8:10 AM EDT Narrative 12/14/2024 10:12 AM EDT ? [facility] ?[address] ?[place] [address] ? Fluoroscopy Report ? Signed ? Patient: Francisco Lorenzo ?MR#: [id number] ?? [id number] ? : 1945 ?Acct:[id number] ? Age/Sex: 79 / M ?ADM Date: 12/14/24 ? Loc: HO.XRAY ? Attending Dr: Makayla Stanford MD ? Ordering Physician: Makayla Stanford MD ?? Date of Service: 12/14/24 ?? Procedure(s): FL barium swallow ?? Accession Number(s): [id number] ? cc: Rodri Lund MD; Makayla Stanford MD ? EXAMINATION: ?? XR [...] DD/ 0810 ? TD/TT: 12/14/24 0835 ? Commissioning Manager: MSM ? Procedure Note Allen, Matteo - 12/14/2024 [place] [address] Fluoroscopy Report Signed Patient: Francisco Lorenzo DMR#: [id number] : 6Acct:[id number] Age/Sex: 79 / MADM Date: 12/14/24 Loc: HO.XRAY Attending Dr: Makayla Stanford MD Ordering Physician: Makayla Stanford MD Date of Service: 12/14/24 Procedure(s): FL barium swallow Accession Number(s): [id number] cc: Rodri Lund MD; Makayla Stanford MD EXAMINATION: XR BARIUM SWALLOW [...] 12/14/24 1009 DD/ 0810 TD/TT: 12/14/24 0835 Commissioning Manager: ESTEPHANIE [employer] External Provider IMG FLU OROSCOPY PROCEDURES Final Result * Gross and Microscopic Level 3 (11/09/2024 8:36 AM EST) 11/09/2024 8:36 AM EST 11/09/2024 9:57 AM EST [facility] - 11/10/2024 1:16 PM EST ----- ------- Name: Francisco Lorenzo ?Age/Sex: 79/M ? : 1945 Unit#: [id number] ?? Attend Dr: Carlton Carmen MD ?Re11/09/24 ?Status: DEP SDC ? Location: HO.SSS ?Disch: ? ----- ------- SPEC : [id number] ? RECD: 11/09/24 ? STATUS: ??SOUT ? REQ NUM: [id number] ? ARIEL: 11/09/24 ? SUBM DR: Carlton Carmen MD ? ENTERED: ??11/09/24 ?SP TYPE: Surgical ? OTHR : Rodri [...] Copies To: ?? Name,Rodri WINN ?? [address] [facility] ?? [place] [address] ?? [phone] ?? Carlton Carmen MD ?? [facility] ?? [address] ?? [place] [address] ?? [phone] ?? [email or web address] ? CONTINUED ON NEXT PAGE ----- ------- Name: Francisco Lorenzo ?Age/Sex: 79/M ? : 1945 Unit#: [id number] ?? Attend Dr: Carlton Carmen MD ?Re11/09/24 ?Status: DEP MAC ? Location: HO.SSS ?Disch: ? ----- ------- SPEC : [id number] ? RECD: 11/09/24 ? STATUS: ??SOUT ? REQ NUM: [id number] ? ARIEL: 11/09/24-835 ? SUBM : Carlton Carmen MD ? ENTERED: ??11/09/24-1007 ?SP TYPE: Surgical ? OTHR : Rodri Lund MD ? ORDERED: ??Gross Micro L3 ? ----- ------- Signed (signature on file) Ramana Tadeo MD 11/10/24 3766 ? ----- ------- ? END OF REPORT ? Generic External Data Provider LAB CYTOLOGY ORDE RABLES Final Result Performing Organization Address [facility]/ZIP Co de Phone Number [facility] [address] [place] [phone] * (ABNORMAL) Glucose, Whole Blood (11/09/2024 6:30 AM EST) Glucose, Whole Blood 164(H) 60 - 115 mg/dL [facility] Comment:METER #: [id number] 11/09/2024 6:30 AM EST 11/09/2024 6:34 AM EST Generic External Data Provider LAB BLOOD ORDERAB LES Final Result Performing Organization Address [facility] Co de Phone Number [facility] [address] [place] [phone] * (ABNORMAL) POCT HGB A1C (11/06/2024 11:35 AM EST) Hemoglobin A1C 7.6(A) 4.0 - 6.0 % QC Media Lot # [id number] Blood 11/06/2024 11:3 5 AM EST Rodri Kevon WINN POINT OF CARE TEST ENTER/EDIT OR DERABLES Final Result * (ABNORMAL) Lipid Panel, Standard (06/28/2024 9:45 AM EDT) Triglycerides 161(H) <150 mg/dL [facility] Comment:Desirable Triglyceri de: less than 150 mg/dLBorderline High Triglyceride 150-199 mg/dLHigh Triglyceride: 200-499 mg/dLVery High Triglyceride: greater than or equal to 5OO mg/dL Cholesterol 177 <200 mg/dL [facility] Comment:Desirable Cholestero l: less than 200 mg/dLBorderline High Cholesterol: 200-239 mg/dLHigh Cholesterol: greater than 239 mg/dL LDL Cholesterol Calculated 107(H) <100 mg/dL [facility] Comment:Desirable LDL: less than 100 mg/dLNear Optimal/Above Optimal LDL: 110- 129 mg/dLBorderline High LDL: 130-159 mg/dLHigh LDL: 160-189 mg/dLVery High LDL: greater than or equal to 190 mg/dL HDL Cholesterol 38(L) >40 mg/dL [facility] Comment:Desirable HDL: great er than 40 mg/dL Note: This HDL assay may give artificially low results in patients with liver disease. Blood Venous blood specimen / Unknown 06/28/2024 9:45 AM EDT 06/28/2024 11:12 AM EDT us Rodri Lund MD LAB BLOOD ORDERABLES Final Resul t Performing Organization Address [facility] de Phone Number [facility] [address] [place] [phone] * (ABNORMAL) Albumin, Random Urine W/Creatinine (09/22/2023 10:44 AM EST) Creatinine, Urine 71.61 mg/dL [facility] Microalbumin Urine 125.0 mg/L [facility] Microalbum Creatinine Ratio Ur 174.5(H) <30 ug/mg cr [facility] Comment:Albumin/Creatinine R atio Reference Ranges: Normal: < 30 ug/mg creatinine Microalbuminuria: 30 - 300 ug/mg creatinineClinical Albuminuria: > 300 ug/mg creatinine Urine (Urine, Random) 09/22/2023 10:44 AM EST 09/22/2023 11:25 AM EST us Rodri Lund MD LAB URINE ORDERABLES Final Resul t Performing Organization Address [facility] Co de Phone Number [facility] [address] [place] [phone] * (ABNORMAL) Hm Colonoscopy (01/20/2023 1:46 [...] ORDERABLE LABS Final Result Performing Organization Address City/State/[facility] Co de Phone Number [facility] Anywhere [address] from Last 3 Months or Most Recently Relevant to Health Maintenance Insurance [facility] OPTIONS (O D-SNP) [place] [id number] Care Teams Commercial Project Manager Relationship Specialty Start Date End Date Name, MD Rodri [address] [place] [address] PCP - General Family Medicine 09/24/15 Ana Pavon PharmD [address] [place] [phone] Pharmacist Internal Medicine 04/28/23 [facility] 09/01/24
--- OUTSIDE RECORDS SUMMARY | 2024-12-22 13:05 | XMS_ITS | Encounter Summary ---
Author Organization [employer] Address [address] [facility] 7t [place] [address] Care Team Providers Care Wire Products Inspector Name Role Phone Name, Rodri WINN Primary Care Provider [phone] Ana Pavon PharmD Unavailable [phone] Encounter Details Date Type Department Care Team (Latest Contact Info) Description 12/22/2024 Travel Social History Tobacco Use Types Packs/Day [...] Support [facility] DIAB[facility]ES/NTRN [address] [place] [address] Nguyen Ragsdale, ALDO [address] [place] [address] 01/30/2025 10:00 AM EDT Medication Management [address] [address] Ana Pavon, PharmD [address] [place] [address] 02/23/2025 9:15 AM EDT Office Visit [address] [address] Adrianna Mathis MD [address] [place] [address] documented as of this encounter Goals Goal Patient Goal Type Associated Problems Recent Progress Patient-Stated? Author Hemoglobin A1c < 7.5 Result Component 7.6( 11:35 AM EST) No Puia, Ana, PharmD Record your blood sugar as directed Result Component No Puia Ana, PharmD Note: Use CGM, ensuring sensor is scanned at least once every 8 hours to capture 24H data. Check BG manually, as directed. documented as of this encounter Visit Diagnoses Not on filedocumented in this encounter Additional Health Concerns Assessment Noted Time PHQ-9 Depression Total Score: 5 12/23/19 25 12:10 PM EDT documented as of this encounter Care Teams Wire Products Inspector Relationship Specialty Start Date End Date Name, MD Rodri [address] [place] [address] PCP - General Family Medicine 09/24/15 Ana Pavon, Mary [address] [place] [address] Pharmacist Internal Medicine 04/28/23 [facility] 09/01/24 documented as of this encounter
--- OUTSIDE RECORDS SUMMARY | 2024-12-22 13:05 | XMS_ITS | Encounter Summary ---
Author Organization [facility] Address [address] [facility] 7t [place] [address] Care Team Providers Care Entry Level Manufacturing Engineer Name Role Phone Name, Rodri WINN Primary Care Provider [phone] Ana Pavon PharmD Unavailable [phone] Encounter Details Date Type Department Care Team (Latest Contact Info) Description 02/25/2021 Abstract [facility] CONVERSIONS Dental, Provider, DDS Social History [...] Description 01/25/2025 3:00 PM EDT Clinical Support [facility] DIABETES/NTRN [address] [place] [address] [place] [address] 01/30/2025 10:00 AM EDT Medication Management [facility] MEDICINE [address] [place] [phone] Ana Pavon, PharmD [address] [place] [address] 02/23/2025 9:15 AM EDT Office Visit [facility] MEDICINE [address] [place] [address] Adrianna Mathis MD [address] [place] [address] documented as of this encounter Visit Diagnoses Not on filedocumented in this encounter Care Teams Entry Level Manufacturing Engineer Relationship Specialty Start Date End Date Name, MD Rodri [address] [place] [address] [phone] PCP - General Family Medicine 09/24/15 Ana Pavon PharmD [address] [place] [address] Pharmacist Internal Medicine 04/28/23 [facility] 09/01/24 documented as of this encounter
--- OUTSIDE RECORDS SUMMARY | 2024-12-22 13:05 | XMS_ITS | Encounter Summary ---
Author Organization [employer] Address [address] [facility] 7t [place] [address] Care Team Providers Care Supervisor Pipelines Name Role Phone Name, Rodri WINN Primary Care Provider [phone] Ana Pavon PharmD Unavailable [phone] Encounter Details Date Type Department Care Team (Latest Contact Info) Description 12/21/2024 Travel Social History Tobacco Use Types Packs/Day [...] 3:00 PM EDT Clinical Support [facility] DIABETES/NTRN 505 [place] [address] Nguyen Ragsdale, ALDO [address] [place] [address] 01/30/2025 10:00 AM EDT Medication Management [address] [address] Ana Pavon, PharmD [address] [place] [address] 02/23/2025 9:15 AM EDT Office Visit [address] [address] Adrianna Mathis MD [address] [place] [address] documented as of this encounter Goals Goal [...] documented as of this encounter Care Teams Supervisor Pipelines Relationship Specialty Start Date End Date Name, MD Rodri [address] [place] [address] PCP - General Family Medicine 09/24/15 Ana Pavon, Mary [address] [place] [address] Pharmacist Internal Medicine 04/28/23 [facility] 09/01/24 documented as of this encounter
--- OUTSIDE RECORDS SUMMARY | 2024-12-22 13:05 | XMS_ITS | Encounter Summary ---
Author Organization [employer] Address [address] [facility] 7t [place] [address] Care Team Providers Care Access Spec Name Role Phone Name, Rodri WINN Primary Care Provider [phone] Ana Pavon PharmD Unavailable [phone] Reason for Visit * Reason Onset Date Comments chartprep 12/19/2024 Encounter Details Date Type Department Care Team ([facility] Contact Info) Description 12/19/2024 Telephone [facility] MEDICINE [address] [place], [place] [phone] Rodolfo Haji MA chartprep Social History Tobacco Use Types Packs/Day [...] Description 01/25/2025 3:00 PM EDT Clinical Support [facility] DIABETES/NTRN [address] [place] [address] Nguyen Ragsdale, ALDO [address] [place] [address] 01/30/2025 10:00 AM EDT Medication Management [address] [address] Ana Pavon, PharmD [address] [place] [address] 02/23/2025 9:15 AM EDT Office Visit [facility] MEDICINE [address] [place] [address] Adrianna Mathis MD [address] [place] [address] documented as of this encounter Goals Goal [...] documented as of this encounter Care Teams Access Spec Relationship Specialty Start Date End Date Name, MD Rodri [address] [place] [address] PCP - General Family Medicine 09/24/15 Ana Pavon PharmD [address] [place] [address] Pharmacist Internal Medicine 04/28/23 [facility] 09/[facility]/24 documented as of this encounter
--- OUTSIDE RECORDS SUMMARY | 2024-12-22 13:05 | XMS_ITS | Encounter Summary ---
Author Organization [employer] Address [address] [facility] 7t [place] [address] Care Team Providers Care Middle School Director Name Role Phone Name, Rodri WINN Primary Care Provider Ana Pavon PharmD Unavailable [phone] Reason for Visit * Reason Comments Med Refill Encounter Details Date Type Department Care Team ([facility] Contact Info) Description 04/07/2023 Refill [facility] [address] [place], [place] [phone] Name, MD Rodri [address] [place] [address] Social History Tobacco Use Types Packs/Day Years [...] 10:49 AM EDT Med request came from [facility] who pt uses as a secondary pharmacy. [...] Description 01/25/2025 3:00 PM EDT Clinical Support [facility] DIABETES/NTRN [address] [place] [address] [place] [address] 01/30/2025 10:00 AM EDT Medication Management [address] [address] Ana Pavon PharmD [address] [place] [address] 02/23/2025 9:15 AM EDT Office Visit [facility] [address] [place] [address] Adrianna Mathis MD [address] [place] [address] documented as of this encounter Visit Diagnoses Not on filedocumented in this encounter Care Teams Middle School Director Relationship Specialty Start Date End Date Name, MD Rodri [address] [place] [address] PCP - General Family Medicine 09/24/15 Ana Pavon PharmD [address] [place] [address] Pharmacist Internal Medicine 04/28/23 [facility] 09/01/24 documented as of this encounter
--- OUTSIDE RECORDS SUMMARY | 2024-12-22 13:05 | XMS_ITS | Encounter Summary ---
Author Organization [employer] Address [address] [facility] 7t [place] [address] Care Team Providers Care Vision Therapist Name Role Phone Name, Rodri WINN Primary Care Provider [phone] Ana Pavon PharmD Unavailable [phone] Reason for Visit * Reason Comments Med Refill Encounter Details Date Type Department Care Team ([facility] Contact Info) Description 03/24/2023 Refill [facility] [address] [place], [place] [phone] Name, MD Rodri [address] [place] [address] Social History Tobacco Use Types Packs/Day Years [...] Upcoming Encounters Date Type Department Care Team ([facility] Contact Info) Description 01/25/2025 3:00 PM EDT Clinical Support [facility] DIABETES/NTRN [address] [place] [address] [place] [address] 01/30/2025 10:00 AM EDT Medication Management [address] [address] Ana Pavon PharmD [address] [place] [address] 02/23/2025 9:15 AM EDT Office Visit [address] [address] Adrianna Mathis MD [address] [place] [address] documented as of this encounter Visit Diagnoses Not on filedocumented in this encounter Care Teams Vision Therapist Relationship Specialty Start Date End Date Name, MD Rodri [address] [place] [address] PCP - General Family Medicine 09/24/15 Ana Pavon PharmD [address] [place] [address] Pharmacist Internal Medicine 04/28/23 [facility] 09/01/24 documented as of this encounter
[2024-12-22 14:10] LABS: Creatinine Urine 166.04 mg/dL; Microalbum/Creatinine Ratio Ur 95.7 ug/mg cr (<30)
== END 2024-12-22 12:16 | disposition home or self-care (01) ==
LOC: HO.HHCL 12:15
PROVIDERS: Visit Provider Internal Medicine Geriatric Medicine
DX: E11.69 Type 2 diabetes mellitus with other specified complication (principal); Z79.4 Long term (current) use of insulin; I10 Essential (primary) hypertension
CPT/HCPCS: 82043; 82570

== ENCOUNTER 2024-12-27 09:48 | Outpatient (AMB) | payer OTHER, SELFPAY ==
--- NOTE | 2024-12-27 09:59 | MHC.OFFVIS ---
Vital Signs 12/27/24 10:10 Height 5 ft Weight 138 lb 14.259 oz BMI 27.1 BP 122/52 L Blood Pressure Location Lt brachial Position Sitting Pulse 70 Intake Visit Reasons: 3 mo f/u GERD Intake Note: Francisco presents in the office as a 3 month follow up for GERD. CC: He states that since in his last procedure he had a hernia repair and a lesion removed from his nose. He states that he still gets the GERD at times. [employer] Solar[employer] Administrator Required: Yes Linux Solar[employer] Administrator Name: [id number] Allergies No Known Allergies Allergy (Verified 12/27/24 10:10) HPI Comments Details: 78 y.o M with PMH of gout, SCC of nose, who is here for GERD. Seen with the help of live director corporate Vianney. Pt reports daily sx of pyrosis and abd discomfort america at night time. This is america when he forgets to take omeprazole. No N/V. No dysphagia. No change in bowel habits. No unintentional weight loss reported. Last EGD 2020 with normal esophageal mucosa on endoscopic appearance and biopsies. Barium swallow December 2024: FINDINGS: Following oral administration of thick barium and effervescent granules there is normal propagation bolus from the oral cavity through the pharynx, esophagus into stomach without any evidence of obstruction, narrowing or stricture. The course and caliber of the esophagus is normal. There is diminished peristalsis in the esophagus towards the end of study. On placing patient in prone lying position and oral administration of thin barium there is good distention of esophagus without hiatal hernia. There is suggestion for recurrent sliding hiatal hernia. No gastroesophageal reflux seen. 12/27/24: Here for office follow up. In the interim had repair of incarerated umbilical hernia as well as excision of nasal basoquam.. Most recent re-excision last month with negative margins. In terms of GERD, reports increased belching and bloating. Also sometimes with pyrosis. Taking omeprazole 20 once daily in the morning. However takes it after breakfast, as he forgets to separate it from his pillbox. Again reviewed reducing omeprazole 10 mg daily, but patient is hesitant due to severe symptom reported, despite minimal reflux noted on barium swallow. Noted famotidine 40 mg on his med list, which is not recommended given his age and creatinine clearance. This was discontinued today. Peripheral eosinophilia noted however EGD 2020 without any eosinophilic esophagitis on biopsy. Laboratory Tests 07/24/24 10:56 WBC 11.6 H Hgb 12.4 L Hct 37.3 L Eos # (Auto) 2.2 H PFSH Medical History Urinary incontinence Chronic constipation Diabetes COVID-19 vaccine series started History of depression Ambulates with cane Eosinophilia Leukocytosis Rheumatoid arthritis Normocytic anemia Surgical History (Updated 12/27/24 @ 10:12 by ALFRED Fine) Hx of umbilical hernia repair History of esophagogastroduodenoscopy (EGD) History of cataract extraction History of back surgery Acid reflux History of colonoscopy History of surgical removal of lesion Family History Mother Diabetes Father No problems noted. Social History Household Members: Spouse Housing: House Are you a primary transitions rn care coordinator to a significant other at home: No Do you presently have visiting nurse or other home services: No 75 years or older and lives alone: No Alcohol intake: never Comment: counts correct Patient Tobacco Use Status: Former Tobacco user e-Cigarette/Vaping Use: Never Used service: No Current occupational status: retired Current occupation: rt handed Review of Systems Const All systems reviewed & are unremarkable except as noted in HPI and below Physical Exam Vital Signs: Last Vital Signs Pulse 70 12/27/24 10:10 BP 122/52 L 12/27/24 10:10 BMI result Body Mass Index 27.1 No apparent distress Nonicteric Abdomen soft, nondistended Alert and oriented x3, normal gait Assessment & Plan Assessment & Plan (1) Pyrosis: Code(s): R12 - Heartburn Category: Medical (2) Long-term current use of proton pump inhibitor therapy: Code(s): Z79.899 - Other penitentiary (current) drug therapy Category: Medical Plan Symptoms consistent with rebound heartburn secondary to sudden interruption and PPI therapy. To recall, has been taking omeprazole 40 mg daily for a few years now. Workup including most recent barium swallow without any significant evidence to suggest reflux. Differentials could include hypersensitive esophagus, NERD, dyspepsia. No erosive esophagitis or EoE noted on EGD/biopsies in 2020. Plan: -continue omeprazole 20 mg once daily for now -again reviewed current usage -advised to call office if unable to take it on empty stomach, in which case we will switch to famotidine-patient was hesitant to switch today -low threshold to proceed with repeat EGD if unable to taper off PPI Follow-up 6 months for review Medications: Changed From omeprazole 20 mg PO DAILY 90 caps 0RF To omeprazole Take on empty stomach, wait 30 mins before eating/drinking 20 mg PO DAILY 90 caps 1RF 90 days Discontinued famotidine Discontinued Reason: Doctor's Order 40 mg PO QAM 90 tabs 1RF K21.9 - Gastro-esophageal reflux disease without esophagitis Coding Level of Care Code Est Pt Level 4 (71435) Diagnoses Pyrosis R12 Long-term current use of proton pump inhibitor therapy Z79.899
[2024-12-27 10:10] VITALS: BP 122/52; PULSE 70; BMI 27.1
--- OUTSIDE RECORDS SUMMARY | 2024-12-27 11:04 | XMS_ITS | Encounter Summary ---
Author Organization [employer] Address [address] [facility] 7t [place] [address] Care Team Providers Care Technologist Development Name Role Phone Name, Rodri WINN Primary Care Provider [phone] Ana Pavon PharmD Unavailable [phone] Encounter Details Date Type Department Care Team (Latest Contact Info) Description 08/23/2019 Abstract [facility] CONVERSIONS Dental, Provider, DDS Social History Tobacco [...] Description 01/25/2025 3:00 PM EDT Clinical Support [facility] DIABETES/NTRN [address] [place] [address] [place] [address] 01/30/2025 10:00 AM EDT Medication Management [facility] MEDICINE [address] [place], [place] [phone] Ana Pavon, PharmD [address] [place] [address] 02/23/2025 9:15 AM EDT Office Visit [facility] [address] [place] [address] [phone] Adrianna Mathis MD [address] [place] [address] documented as of this encounter Visit Diagnoses Not on filedocumented in this encounter Care Teams Technologist Development Relationship Specialty Start Date End Date Name, MD Rodri [address] [place] [address] PCP - General Family Medicine 09/24/15 Ana Pavon PharmD [address] [place] [address] Pharmacist Internal Medicine 04/28/23 [facility] 09/01/24 documented as of this encounter
--- OUTSIDE RECORDS SUMMARY | 2024-12-27 11:04 | XMS_ITS | Encounter Summary ---
Author Organization [employer] Address [address] [facility] 7t [place] [address] Care Team Providers Care Electrode Turner And Finisher Name Role Phone Name, Rodri WINN Primary Care Provider [phone] Ana Pavon PharmD Unavailable [phone] Reason for Visit * Reason Comments Med Refill Encounter Details Date Type Department Care Team ([facility] st Contact Info) Description 04/07/2023 Refill [facility] MEDICINE [address] [place], [place] [phone] Name, MD Rodri [address] [place] [address] Social History Tobacco Use Types Packs/Day Years [...] PM EDT Clinical Support [facility] DIABETES/NTRN [address] [place] [address] [place] [address] 01/30/2025 10:00 AM EDT Medication Management [address] [address] Ana Pavon PharmD [address] [place] [phone] 02/23/2025 9:15 AM EDT Office Visit [facility] MEDICINE [address] [place] [address] Adrianna Mathis MD [address] [place] [phone] documented as of this encounter Visit Diagnoses Not on filedocumented in this encounter Care Teams Electrode Turner And Finisher Relationship Specialty Start Date End Date Name, MD Rodri [address] [place] [phone] PCP - General Family Medicine 09/24/15 Ana Pavon PharmD [address] [place] [phone] Pharmacist Internal Medicine 04/28/23 [facility] 09/01/24 documented as of this encounter
--- OUTSIDE RECORDS SUMMARY | 2024-12-27 11:04 | XMS_ITS | Encounter Summary ---
Author Organization [employer] Address [address] [facility] 7t [place] [address] Care Team Providers Care Medical Technician Name Role Phone Name, Rodri WINN Primary Care Provider [phone] Ana Pavon PharmD Unavailable [phone] Reason for Visit * Reason Comments Med Refill Encounter Details Date Type Department Care Team ([facility] Contact Info) Description 03/24/2023 Refill [facility] MEDICINE [address] [place], [place] [phone] Name, MD Rodri [address] [place] [address] Social History Tobacco Use Types Packs/Day Years [...] Upcoming Encounters Date Type Department Care Team ([facility] Contact Info) Description 01/25/2025 3:00 PM EDT Clinical Support [facility] DIABETES/NTRN [address] [place] [address] [place] [address] 01/30/2025 10:00 AM EDT Medication Management [address] [address] Ana Pavon PharmD [address] [place] [address] 02/23/2025 9:15 AM EDT Office Visit [address] [address] Adrianna Mathis MD [address] [place] [address] documented as of this encounter Visit Diagnoses Not on filedocumented in this encounter Care Teams Medical Technician Relationship Specialty Start Date End Date Name, MD Rodri [address] [place] [phone] PCP - General Family Medicine 09/24/15 Ana Pavon PharmD [address] [place] [address] Pharmacist Internal Medicine 04/28/23 [facility] 09/01/24 documented as of this encounter
--- OUTSIDE RECORDS SUMMARY | 2024-12-27 11:04 | XMS_ITS | Clinical Summary ---
Author Organization [facility] Address [address] [phone] Phone Care Team Providers Care Pulmonary Care Nurse Name Role Phone Name, Rodri WINN Primary Care Provider [phone] Allergies Active Allergy Reactions Criticality Noted Date [...] Office Visit [facility] [address] [phone] Byron Rodas MD [address] [address] Health Maintenance Due Date Last [...] 05/22/2024, , 06/24/2021, Additional history exists Insurance [facility] ([id number]) [facility] ([id number]) Care Teams Pulmonary Care Nurse Relationship Specialty Start Date End Date Name, MD Rodri [address] [place] [address] [phone] PCP - General Internal Medicine 06/25/21
--- OUTSIDE RECORDS SUMMARY | 2024-12-27 11:04 | XMS_ITS | Encounter Summary ---
Author Organization [employer] [facility] Address [address] [facility] 7t [place] [address] Care Team Providers Care Program Review Director Name Role Phone Name, Rodri WINN Primary Care Provider [phone] Ana Pavon PharmD Unavailable [phone] Encounter Details Date Type Department Care Team (Latest Contact Info) Description 06/25/[address] [facility] CONVERSIONS Dental, Provider, DDS Social History [...] Description 01/25/2025 3:00 PM EDT Clinical Support [facility] DIABETES/NTRN [address] [place] [address] [place] [address] 01/30/2025 10:00 AM EDT Medication Management [facility] MEDICINE [address] [place] [address] [phone] Ana Pavon, PharmD [address] [place] [address] 02/23/2025 9:15 AM EDT Office Visit [facility] MEDICINE [address] [place] [address] Adrianna Mathis MD [address] [place] [address] documented as of this encounter Visit Diagnoses Not on filedocumented in this encounter Care Teams Program Review Director Relationship Specialty Start Date End Date Name, MD Rodri [address] [place] [address] [phone] PCP - General Family Medicine 09/24/15 Ana Pavon PharmD [address] [place] [phone] Pharmacist Internal Medicine 04/28/23 [facility] 09/01/24 documented as of this encounter
--- OUTSIDE RECORDS SUMMARY | 2024-12-27 11:04 | XMS_ITS | Encounter Summary ---
Author Organization [employer] [facility] Address [address] [facility] 7t [place] [address] Care Team Providers Care Camp Dining Room Attendant Name Role Phone Name, Rodri WINN Primary Care Provider [phone] Ana Pavon PharmD Unavailable [phone] Encounter Details Date Type Department Care Team (Latest Contact Info) Description 02/25/2021 Abstract [facility] CONVERSIONS Dental, Provider, DDS Social History [...] Description 01/25/2025 3:00 PM EDT Clinical Support [facility] DIABETES/NTRN [address] [place] [address] [place] [address] 01/30/2025 10:00 AM EDT Medication Management [facility] MEDICINE [address] [place] [address] [phone] Ana Pavon, PharmD [address] [place] [address] 02/23/2025 9:15 AM EDT Office Visit [facility] MEDICINE [address] [place] [phone] Adrianna Mathis MD [address] [place] [address] documented as of this encounter Visit Diagnoses Not on filedocumented in this encounter Care Teams Camp Dining Room Attendant Relationship Specialty Start Date End Date Name, MD Rodri [address] [place] [address] [phone] PCP - General Family Medicine 09/24/15 Ana Pavon PharmD [address] [place] [phone] Pharmacist Internal Medicine 04/28/23 [facility] 09/01/24 documented as of this encounter
--- OUTSIDE RECORDS SUMMARY | 2024-12-27 11:04 | XMS_ITS | Clinical Summary ---
Author Organization [employer] Address [address] [facility] 7t [place] [address] Care Team Providers Care Veneer Trimmer Name Role Phone Name, Rodri WINN Primary Care Provider [phone] Ana Pavon PharmD Unavailable [phone] Allergies No known active allergies Medications allopurinol (Zyloprim) 100 MG tablet Take 100 mg by mouth in the morning. 06/25/20 22 Active famotidine (Pepcid) 40 MG tablet Take 40 mg by mouth in the morning. 04/21/20 22 Active terazosin (Hytrin) 5 MG capsule Take 5 mg by mouth at bedtime. 03/02/20 23 Active Continuous Blood Gluc Sewer System Supervisor (FreeStyle Grace 2 [place]) deviceIndication s:Poorly controlled diabetes mellitus ([facility]) Use to scan sensor at least every 8 hours, as directed, for CGM 1 each 04/28/20 23 Active insulin pen needle 32G x 4 mm miscIndications: Poorly controlled diabetes mellitus ([facility]) Use to inject insulin 1 time daily 100 each 3 11/22/19 24 Active glucose blood (FreeStyle Precision Cosme Test) test stripIndications :Type 2 diabetes mellitus with other specified complication, without long-term current use of insulin ([facility]) Use to test blood sugar up to [...] complication, with long-term current use of insulin ([facility]) Inject 5 mg under the skin 1 [...] Description 12/22/2024 11:30 AM EDT Office Visit [facility] [address] [place] [phone] Name, MD Rodri Type 2 diabetes mellitus with other specified complication, with long-term current use of insulin ([facility]) (Primary Dx) 12/22/2024 Travel 12/21/2024 2:30 PM EDT Clinical Support [facility]NTRN [address] [place] [address] Type 2 diabetes mellitus with other specified complication, with long-term current use of insulin (CMS/HCC) (Primary Dx) 12/21/2024 Travel 12/19/2024 Telephone [facility] [address] [facility] [place] [address] Rodolfo Haji MA chartprep 12/14/2024 3:00 PM EDT Clinical Support [facility]N [address] [facility] [place] [address] Type 2 diabetes mellitus with other specified complication, with long-term current use of insulin (CMS/HCC) (Primary Dx) 12/14/2024 Travel 12/14/2024 Orders Only [facility] External Provider, [facility] 12/11/2024 Refill [facility] 230 [place] [address] Rodri Lund MD 12/05/2024 Refill [facility] [address] [facility] [place] [address] Rodri Lund MD 11/29/2024 Telephone [facility] [address] [place] [address] Barber Wheeler [place] appt change (Provider out /) 11/10/2024 Refill [facility] [address] [place] [address] Rodri Lund MD 11/09/2024 Orders Only GENERIC EXTERNAL DATA DEPARTMENT Provider, Generic External Data 10/19/2024 10:30 AM EST Nutrition [facility] [address] [place] [address] Type 2 diabetes mellitus with other specified complication, with long-term current use of insulin (CMS/HCC) 10/19/2024 Travel 10/10/2024 Refill [facility] [address] [facility] [place] [address] Rachael Martinez FNP from Last 3 Months [...] 01/25/2025 3:00 PM EDT Clinical Support [facility]NTRN [address] [place] [address] Nguyen Ragsdale, ALDO [address] [place], [place] [phone] 01/30/2025 10:00 AM EDT Medication Management [facility] 230 [place] [address] Ana Pavon PharmD [address] [place] [address] 02/23/2025 9:15 AM EDT Office Visit [facility] 230 [place] [address] Adrianna Mathis MD [address] [place], [place] [phone] Health Maintenance Due Date Last Done Comments CT Colonography 1945 FIT DNA/Cologuard 1945 FIT 1945 FOBT 1945 Sigmoidoscopy 1945 Dental Oral Exam 07/14/2024 01/11/2024 Dental Prophylaxis 07/14/2024 01/11/2024 SDOH Screening 10/15/2024 10/15/2023 Eye Exam 11/11/2024 11/11/2022 Dental X-Ray: Bitewings 01/11/2025 01/11/2024 Diabetes: Hemoglobin A1C 02/06/2025 025, 07/12/2024, 04/19/2024, Additional history exists Lipid Panel 06/28/2025 06/28/2024, 09/0 01/2023, 07/06/2022, Additional history exists Alcohol/Substance Use Screening 12/22/2025 12/22/2024 Depression Screening 12/22/2025 12/22/2024, 12/23/19 Diabetes: Foot Exam 12/22/2025 12/22/2024, 12/22/2024, 12/22/2024, Additional history exists Diabetes: Urine Protein Screening 12/22/2025 12/22/2024, 09/22/2023, 10/15/2022, Additional history exists Tobacco Screening 12/22/2025 12/22/2024 Colonoscopy 01/20/2026 01/20/2023, [...] Procedure Name Priority Date/Time Associated Diagnosis Comments ALBUMIN, RANDOM URINE W/CREATININE Routine 12/22/2024 12:17 PM EDT Type 2 diabetes mellitus with other specified complication, with long-term current use of insulin ([facility]) POCT GLUCOSE Routine 12/22/2024 11:51 AM EDT Type 2 diabetes mellitus with other specified complication, with long-term current use of insulin ([facility]) FL ESOPHAGUS BARIUM SWALLOW Routine 12/14/2024 8:10 AM EDT GROSS AND MICROSCOPIC LEVEL 3 Routine 11/09/2024 8:36 AM EST GLUCOSE, WHOLE BLOOD Routine 11/09/2024 6:30 AM EST POCT GLYCATED HEMOGLOBIN, TOTAL Routine 11/06/2024 11:35 AM EST Type 2 diabetes mellitus with other specified complication, without long-term current use of insulin ([facility]) LIPID PANEL, STANDARD Routine 06/28/2024 9:45 AM EDT Type 2 diabetes mellitus with other specified complication, with long-term current use of insulin ([facility]) Full PROPHYLAXIS - ADULT Routine 01/11/2024 11:00 AM EDT Dental plaque Dental calculus INTRAORAL - COMPLETE SERIES OF RADIOGRAPHIC IMAGES Routine 01/11/2024 11:00 AM EDT PERIODIC ORAL EVALUATION - ESTABLISHED PATIENT Routine 01/11/2024 11:00 AM EDT Dental plaque Dental calculus Encounter for dental examination Gingival recession, localized HM COLONOSCOPY Routine 01/20/2023 1:46 PM EDT HM DIABETES EYE EXAM Routine 11/11/2022 ZZZ HISTORICAL HEPATITIS A,B,C PROFILE Routine 10/09/2020 1:30 PM EST from Last 3 Months or Most Recently Relevant to Health Maintenance Results * (ABNORMAL) Albumin, Random Urine W/Creatinine (12/22/2024 12:17 PM EDT) Creatinine, Urine 166.04 mg/dL [facility] Microalbumin Urine 159.0 mg/L [facility] Microalbum Creatinine Ratio Ur 95.7(H) <30 ug/mg cr [facility] Comment:Albumin/Creatinine R atio Reference Ranges: Normal: < 30 ug/mg creatinine Microalbuminuria: 30 - 300 ug/mg creatinineClinical Albuminuria: > 300 ug/mg creatinine Urine (Urine, Random) 12/22/2024 12:17 PM EDT 12/22/2024 1:00 PM EDT us Rodri Lund MD LAB URINE ORDERABLES Final Resul t [facility] [address] [place] [address] [phone] * POCT Glucose (12/22/2024 11:51 AM EDT) [...] EDT Narrative 12/14/2024 10:12 AM EDT ? [facility] ?[address] ?[place] [address] ? Fluoroscopy Report ? Signed ? Patient: Rudy Vargas,Jaxon ?MR#: [id number] ?? [id number] ? : 1945 ?Acct:[id number] ? Age/Sex: 79 / M ?ADM Date: 04/10/25 ? Loc: HO.XRAY ? Attending Dr: Makayla Stanford MD ? Ordering Physician: Makayla Stanford MD ?? Date of Service: 12/14/24 ?? Procedure(s): FL barium swallow ?? Accession Number(s): [id number] ? cc: Name,Rodri WINN; Makayla Stanford MD [...] DD/ 0810 ? TD/TT: 12/14/24 0835 ? Hone Operator: MSM ? Procedure Note Allen, Image - 12/14/[address] [address] Fluoroscopy Report Signed Patient: Francisco Lorenzo [facility]#: [id number] : 1946Acct:[id number] Age/Sex: 79 / MADM Date: 12/14/24 Loc: [facility] Attending Dr: Makayla Stanford MD Ordering Physician: Makayla Stanford MD Date of Service: 12/14/24 Procedure(s): FL barium swallow Accession Number(s): [id number] cc: Name,Rodri WINN; Makayla Stanford MD EXAMINATION: [...] Deon Contreras MD 12/14/2024 10:09 AM EDT RP Dictated By: Deon Contreras MD Signed By: <Electronically signed by Deon Contreras MD in OV> 12/14/24 1009 DD/ 0810 TD/TT: 12/14/24 0835 Hone Operator: ESTEPHANIE [facility] External Provider IMG FLU OROSCOPY PROCEDURES Final Result * Gross and Microscopic Level 3 (11/09/2024 8:36 AM EST) 11/09/2024 8:36 AM EST 11/09/2024 9:57 AM EST Narrative [facility] - 11/10/2024 1:16 PM EST ----- ------- Name: Francisco Lorenzo ?Age/Sex: 79/M ? : 1945 Unit#: [id number] ?? Attend Dr: Carlton Carmen MD ?Re11/09/24 ?Status: DEP SDC ? Location: HO.SSS ?Disch: ? ----- ------- SPEC : [id number] ? RECD: 11/09/24 ? STATUS: ??SOUT ? REQ NUM: [id number] ? ARIEL: 11/09/24-835 ? SUBM DR: Carlton [...] Copies To: ?? Name,Rodri WINN ?? [address] [facility] ?? [place] [address] ?? [phone] ?? Carlton Carmen MD ?? [facility] ?? [address] ?? [place] [address] ?? [phone] ?? [email or web address] ? CONTINUED ON NEXT PAGE ----- ------- Name: Francisco Lorenzo ?Age/Sex: 79/M ? : 1945 Unit#: [id number] ?? Attend Dr: Carlton Carmen MD ?Re11/09/24 ?Status: DEP SDC ? Location: HO.SSS ?Disch: ? ----- ------- SPEC : [id number] ? RECD: 11/09/24 ? STATUS: ??SOUT ? REQ NUM: [id number] ? ARIEL: 11/09/24 ? SUBM DR: Carlton Carmen MD ? ENTERED: ??11/09/24-1007 ?SP TYPE: Surgical ? OTHR : Rodri Lund MD ? ORDERED: ??Gross Micro L3 ? ----- ------- Signed (signature on file) Ramana Tadeo MD 11/10/24 1316 ? ----- ------- ? END OF REPORT ? Generic External Data Provider LAB CYTOLOGY ORDE RABLES Final Result Performing Organization Address [facility] Co de Phone Number [facility] [address] [place] [address] [phone] * (ABNORMAL) Glucose, Whole Blood (11/09/2024 6:30 AM EST) [facility] Glucose, Whole Blood 164(H) 60 - 115 mg/dL [facility] Comment:METER #: [id number] 11/09/2024 6:30 AM EST 11/09/2024 6:34 AM EST Generic External Data Provider LAB BLOOD ORDERAB LES Final Result Performing Organization Address [facility] Co de Phone Number [facility] [address] [place], [place] [phone] * (ABNORMAL) POCT HGB A1C (11/06/2024 11:35 AM EST) [facility] Hemoglobin A1C 7.6(A) 4.0 - 6.0 % QC Media Lot # [id number] Blood 11/06/2024 11:3 5 AM EST us Rodri Lund MD POINT OF CARE TEST ENTER/EDIT OR DERABLES Final Result * (ABNORMAL) Lipid Panel, Standard (06/28/2024 9:45 AM EDT) Triglycerides 161(H) <150 mg/dL [facility] Comment:Desirable Triglyceri de: less than 150 mg/dLBorderline High Triglyceride 150-199 mg/dLHigh Triglyceride: 200-499 mg/dLVery High Triglyceride: greater than or equal to 5OO mg/dL Cholesterol 177 <200 mg/dL [facility] Comment:Desirable Cholestero l: less than 200 mg/dLBorderline High Cholesterol: 200-239 mg/dLHigh Cholesterol: greater than 239 mg/dL LDL Cholesterol Calculated 107(H) <100 mg/dL [facility] Comment:Desirable LDL: less than 100 mg/dLNear Optimal/Above Optimal LDL: 110- 129 mg/dLBorderline High LDL: 130-159 mg/dLHigh LDL: 160-189 mg/dLVery High LDL: greater than or equal to 190 mg/dL HDL Cholesterol 38(L) >40 mg/dL [facility] Comment:Desirable HDL: great er than 40 mg/dL Note: This HDL assay may give artificially low results in patients with liver disease. Blood Venous blood specimen / Unknown 06/28/2024 9:45 AM EDT 06/28/2024 11:12 AM EDT us Rodri Lund MD LAB BLOOD ORDERABLES Final Resul t [facility] [address] [place] [address] [phone] * (ABNORMAL) Hm Colonoscopy (01/20/2023 [...] Historical Provider HISTORICAL/NON ORDERABLE LABS Final Result [facility] Anywhere [address] from Last 3 Months or Most Recently Relevant to Health Maintenance Insurance [facility] FDC OPTIONS (O D-SNP) LEONID [place]NDO [id number] Care Teams Veneer Trimmer Relationship Specialty Start Date End Date Name, MD Rodri [address] [place] [address] PCP - General Family Medicine 09/24/15 Ana Pavon PharmD [address] [place] [address] Pharmacist Internal Medicine 04/28/23 [facility] 09/01/24
--- OUTSIDE RECORDS SUMMARY | 2024-12-27 11:04 | XMS_ITS | Encounter Summary ---
Author Organization [employer] Address [address] [facility] 7t [place] [address] Care Team Providers Care Assembly Machine Set Up Mechanic Name Role Phone Name, Rodri WINN Primary Care Provider [phone] Ana Pavon PharmD Unavailable [phone] Encounter Details Date Type Department Care [...] Description 01/25/2025 3:00 PM EDT Clinical Support [facility]/N[facility]N [address] [place] [address] Nguyen Ragsdale, ALDO [address] [place] [address] 01/30/2025 10:00 AM EDT Medication Management [address] [address] Ana Pavon, PharmD [address] [place] [address] 02/23/2025 9:15 AM EDT Office Visit [address] [address] Adrianna Mathis MD [address] [place] [address] documented as of this encounter Goals Goal [...] documented as of this encounter Care Teams Assembly Machine Set Up Mechanic Relationship Specialty Start Date End Date Name, MD Rodri [address] [place] [address] PCP - General Family Medicine 09/24/15 Ana Pavon, Mary [address] [place] [address] Pharmacist Internal Medicine 04/28/23 [facility] 09/01/24 documented as of this encounter
--- OUTSIDE RECORDS SUMMARY | 2024-12-27 11:04 | XMS_ITS | Encounter Summary ---
Author Organization [employer] Address [address] [facility] 7t [place] [address] Care Team Providers Care Audiology Doctor Name Role Phone Name, Rodri WINN Primary Care Provider Ana Pavon PharmD Unavailable [phone] Reason for Visit * Reason Comments Med Refill Encounter Details Date Type Department Care Team ([facility] st Contact Info) Description 11/19/2023 Refill [facility] [address] [place], [place] [phone] Name, MD Rodri [address] [place] [address] Social History Tobacco Use Types Packs/Day Years [...] 01/25/2025 3:00 PM EDT Clinical Support [facility] DI[facility]/NTRN 505 [place] [address] [place] [address] 01/30/2025 10:00 AM EDT Medication Management [address] [address] Ana Pavon, PharmD [address] [place] [address] 02/23/2025 9:15 AM EDT Office Visit [address] [address] Adrianna Mathis MD [address] [place] [address] documented as of this encounter Goals Goal [...] documented as of this encounter Care Teams Audiology Doctor Relationship Specialty Start Date End Date Name, MD Rodri [address] [place] [address] PCP - General Family Medicine 09/24/15 Ana Pavon PharmD [address] [place] [address] Pharmacist Internal Medicine 04/28/23 [facility] 09/01/24 documented as of this encounter
--- OUTSIDE RECORDS SUMMARY | 2024-12-27 11:04 | XMS_ITS | Encounter Summary ---
Author Organization [employer] Address 75 [facility] 7t [place] [address] Care Team Providers Care Sheetmetal Trades Worker Name Role Phone Name, Rodri WINN Primary Care Provider Ana Pavon PharmD Unavailable [phone] Reason for Visit * Reason Comments Follow-up Encounter Details Date Type Department Care Team ([facility] st Contact Info) Description 12/22/2024 11:30 AM EDT Office Visit [facility] [address] [place], [place] [phone] Name, MD Rodri [address] [place], [place] [phone] Type 2 diabetes mellitus with other specified complication, with long-term current use of insulin ([facility]) (Primary Dx) Social History Tobacco Use Types [...] 11:49 AM EDT documented in this encounter Progress Notes * Rodri Lund MD - 12/22/2024 11:30 AM EDT Subjective Patient ID: Francisco Grant is a 79 y.o. male who presents for Follow-up. Patient comes for a follow up visit and he is doing well His BP is good and he tells me his blood sugar are improving. He does not bring his CGM reader He tells me he is tolerating the Mounjaro better than the Ozempic in terms of the GI side effects He follows with the CDTM program regularly Review of Systems Constitutional: Negative for chills, fatigue and fever. HENT: Negative for sore throat. Respiratory: Negative for cough, chest tightness and shortness of breath. Cardiovascular: Negative for chest pain, palpitations and leg swelling. Gastrointestinal: Negative for abdominal pain and blood in stool. Visit Vitals BP 120/78 Pulse 75 Temp 98.4 ??F (36.9 ??C) (Oral) Resp 18 Ht 5' (1.524 m) Wt 142 lb 6.4 oz (64.6 kg) SpO2 98% BMI 27.81 kg/m?? Smoking Status Former BSA 1.65 m?? Objective Physical Exam Constitutional: Appearance: Normal appearance. Cardiovascular: Rate and Rhythm: Normal rate and regular rhythm. Pulses: Dorsalis pedis pulses are 2+ on the right side and 2+ on the left side. Posterior tibial pulses are 2+ on the right side and 2+ on the left side. Heart sounds: No murmur heard. Pulmonary: Effort: Pulmonary effort is normal. No respiratory distress. Breath sounds: No wheezing, rhonchi or rales. Abdominal: Palpations: Abdomen is soft. Tenderness: There is no abdominal tenderness. Musculoskeletal: Right lower leg: No edema. Left lower leg: No edema. Right foot: Normal range of motion. No deformity. Left foot: Normal range of motion. No deformity. Feet: Right foot: Protective Sensation: 5 sites tested. 5 sites sensed. Skin integrity: Skin integrity normal. Toenail Condition: Right toenails are normal. Left foot: Protective Sensation: 5 sites tested. 5 sites sensed. Skin integrity: Skin integrity normal. Toenail Condition: Left toenails are normal. Neurological: Mental Status: He is alert. Lab Results Component Value Date HGBA1C 7.6 (A) 11/06/2024 HGBA1C 8.9 (A) 07/12/2024 HGBA1C 8.0 (A) 04/19/2024 HGBA1C 8.8 (A) 01/21/2024 HGBA1C 8.0 (A) 11/18/2023 HGBA1C 8.3 (A) 08/16/2023 HGBA1C 9.2 (H) 05/11/2023 HGBA1C 11.7 (A) 02/05/2023 HGBA1C 8.2 (A) 09/30/2022 HGBA1C 7.0 (H) 07/06/2022 Lab Results Component Value Date CREATININE 1.16 06/28/2024 CREATININE 1.45 (H) 09/22/2023 CREATININE 1.29 05/11/2023 CREATININE 1.38 08/18/2022 CREATININE 1.48 (H) 02/19/2022 CREATININE 1.55 (H) 02/16/2022 CREATININE 1.55 (H) 02/16/2022 CREATININE 1.37 11/20/2021 CREATININE 1.23 10/16/2021 CREATININE 1.44 (H) 09/16/2021 CREATININE 1.44 (H) 09/16/2021 CREATININE 1.54 (H) 10/09/2020 Lab Results Component Value Date GLUCOSE 164 (H) 11/09/2024 NA 140 06/28/2024 K 4.1 06/28/2024 CO2 28 06/28/2024 CL 106 06/28/2024 BUN 17 (H) 06/28/2024 CREATININE 1.16 06/28/2024 Assessment/Plan Diagnoses and all orders for this visit: Type 2 diabetes mellitus with other specified complication, with long-term current use of insulin ([facility]) Comments: He seems to be doing well. He is recommeded to keep using his meds and avoid sweets. Recheck microalbumin in the urine. Keep upcoming appointment with CDTM and renal. Orders: - POCT Glucose - Albumin, Random Urine W/Creatinine; Future documented in this encounter Plan of Treatment Upcoming Encounters Date Type Department Care Team (Late st Contact Info) Description 01/25/2025 3:00 PM EDT Clinical Support [facility] [address] [place] [address] Nguyen Ragsdale, ALDO [address] [place], [place] [phone] 01/30/2025 10:00 AM EDT Medication Management [facility] [address] [place] [address] Ana Pavon, PharmD [address] [place] [address] 02/23/2025 9:15 AM EDT Office Visit [facility] [address] [place] [address] Adrianna Mathis MD [address] [place] [address] documented as of this encounter Goals Goal Patient Goal Type Associated Problems Recent Progress Patient-Stated? Author Hemoglobin A1c < 7.5 Result Component 7.6( 11:35 AM EST) No Ana Pavon, Mary Record your blood sugar as directed Result [...] complication, with long-term current use of insulin ([facility]) POCT GLUCOSE Routine 12/22/2024 11:51 AM EDT Type 2 diabetes mellitus with other specified complication, with long-term current use of insulin ([facility]) documented in this encounter Results * (ABNORMAL) Albumin, Random Urine W/Creatinine (12/22/2024 12:17 PM EDT) Creatinine, Urine 166.04 mg/dL [facility] Microalbumin Urine 159.0 mg/L [facility] Microalbum Creatinine Ratio Ur 95.7(H) <30 ug/mg cr [facility] Comment:Albumin/Creatinine R atio Reference Ranges: Normal: < 30 ug/mg creatinine Microalbuminuria: 30 - 300 ug/mg creatinineClinical Albuminuria: > 300 ug/mg creatinine Urine (Urine, Random) 12/22/2024 12:17 PM EDT 12/22/2024 1:00 PM EDT us Rodri Lund MD LAB URINE ORDERABLES Final Resul t [facility] [address] [place] [address] [phone] * POCT Glucose (12/22/2024 11:51 AM EDT) Glucose Blood, POC 128 60 - 200 mg/dL QC Media Lot # [id number] Lot# Expiration Date [id number] Blood Capillary blood specimen / Unknown 12/22/2024 11:51 AM EDT Rodri Lund MD POINT OF CARE TEST ENTER/EDIT OR DERABLES Final Result documented in this encounter Visit Diagnoses Diagnosis Type 2 diabetes mellitus with other specified complication, with long-term current use of insulin ([facility])- Primary documented in this encounter Additional Health Concerns Assessment Noted Time PHQ-9 Depression Total Score: 5 12/23/19 25 12:10 PM EDT documented as of this encounter Care Teams Sheetmetal Trades Worker Relationship Specialty Start Date End Date Name, MD Rodri [address] [place] [address] PCP - General Family Medicine 09/24/15 Ana Pavon PharmD [address] [place] [phone] Pharmacist Internal Medicine 04/28/23 [facility] 09/01/24 documented as of this encounter
--- OUTSIDE RECORDS SUMMARY | 2024-12-27 11:04 | XMS_ITS | Encounter Summary ---
Author Organization [employer] Address [address] [facility] 7t [place] [address] Care Team Providers Care Wader Boot Top Assembler Name Role Phone Name, Rodri WINN Primary Care Provider [phone] Ana Pavon PharmD Unavailable [phone] Reason for Visit * Reason Comments Med Refill Encounter Details Date Type Department Care Team ([facility] st Contact Info) Description 06/23/2024 Refill [facility] MEDICINE [address] [place], [place] [phone] Name, MD Rodri [address] [place] [address] Social History Tobacco Use Types Packs/Day Years [...] 3:00 PM EDT Clinical Support [facility] DIABETES/NTRN [address] [place] [address] [place] [address] 01/30/2025 10:00 AM EDT Medication Management [address] [address] Ana Pavon, PharmD [address] [place] [address] 02/23/2025 9:15 AM EDT Office Visit [address] [address] Adrianna Mathis MD [address] [place] [address] documented as of this encounter Goals Goal [...] documented as of this encounter Care Teams Wader Boot Top Assembler Relationship Specialty Start Date End Date Name, MD Rodri [address] [place] [address] PCP - General Family Medicine 09/24/15 Ana Pavon PharmD [address] [place] [address] Pharmacist Internal Medicine 04/28/23 [facility] 09/01/24 documented as of this encounter
--- OUTSIDE RECORDS SUMMARY | 2024-12-27 11:04 | XMS_ITS | Encounter Summary ---
Author Organization [employer] Address 75 [facility] 7t [place] [address] Care Team Providers Care Hardboard Coating Machine Operator Name Role Phone Name, Rodri WINN Primary Care Provider Ana Pavon PharmD Unavailable [phone] Reason for Visit * Reason Comments Med Refill Encounter Details Date Type Department Care Team (Late Contact Info) Description 04/13/2023 Refill [facility] MEDICINE [address] [place], [place] [phone] Name, MD Rodri [address] [place], [place] [phone] Social History Tobacco Use Types Packs/Day Years [...] Description 01/25/2025 3:00 PM EDT Clinical Support [facility] DIABETES/NTRN [address] [place], [place] [phone] [address] [place], [place] [phone] 01/30/2025 10:00 AM EDT Medication Management [facility] MEDICINE [address] [place] [phone] Ana Pavon PharmD [address] [place] [address] 02/23/2025 9:15 AM EDT Office Visit [facility] MEDICINE [address] [place] [address] Adrianna Mathis MD [address] [place] [phone] documented as of this encounter Visit Diagnoses Not on filedocumented in this encounter Care Teams Hardboard Coating Machine Operator Relationship Specialty Start Date End Date Name, MD Rodri [address] [place] [phone] PCP - General Family Medicine 09/24/15 Ana Pavon PharmD [address] [place] [address] Pharmacist Internal Medicine 04/28/23 [facility] 09/01/24 documented as of this encounter
== END 2024-12-27 10:54 | disposition home or self-care (01) ==
LOC: HO.HGI 09:49
PROVIDERS: PCP Internal Medicine Geriatric Medicine; Visit Provider Internal Medicine
DX: R12 Heartburn (principal); Z79.899 Other long term (current) drug therapy
CPT/HCPCS: 99214

== ENCOUNTER → 2024-12-27 09:48 | Outpatient (BNVA) | payer OTHER, SELFPAY | PROVIDERS: PCP Internal Medicine Geriatric Medicine; Visit Provider Internal Medicine | DX: K21.9 Gastro-esophageal reflux disease without esophagitis (principal); R12 Heartburn; Z79.899 Other long term (current) drug therapy | CPT/HCPCS: 99212 ==

== ENCOUNTER 2025-03-16 09:14 | Outpatient (REF) | payer OTHER, SELFPAY ==
--- OUTSIDE RECORDS SUMMARY | 2025-03-16 09:30 | XMS_ITS | Encounter Summary ---
Author Organization [employer] Address 75 [facility] 7t [place] [address] Care Team Providers Care Farm Owner Operator Name Role Phone Name, Rodri WINN Primary Care Provider [phone] Ana Pavon PharmD Unavailable [phone] Encounter Details Date Type Department Care Team (Latest Contact Info) Description 02/25/2021 Abstract [facility] CONVERSIONS Dental, Provider, DDS Social History Tobacco [...] Care Team (Late st Contact Info) Description 04/05/2025 2:30 PM EDT Clinical Support [facility] CHC DIABETES/NTRN [address] [place] [address] [place] [address] 04/19/2025 10:30 AM EDT Medication Management [facility] MEDICINE [address] [place] [address] [phone] Ana Pavon, PharmD [address] [place], [place] [phone] 05/15/2025 11:15 AM EDT Office Visit [facility] MEDICINE [address] [place] [address] [phone] Name, MD Rodri [address] [place] [address] documented as of this encounter Visit Diagnoses Not on filedocumented in this encounter Care Teams Farm Owner Operator Relationship Specialty Start Date End Date Name, MD Rodri [address] [place], [place] [phone] PCP - General Family Medicine 09/24/15 Ana Pavon, NoelD [address] [place] [address] Pharmacist Internal Medicine 04/28/23 [facility] 09/01/24 documented as of this encounter
--- OUTSIDE RECORDS SUMMARY | 2025-03-16 09:30 | XMS_ITS | Clinical Summary ---
Author Organization [facility] Address [address] [phone] Phone Care Team Providers Care Locksmith Name Role Phone Name, Rodri WINN Primary Care Provider [phone] Allergies Active Allergy Reactions Criticality Noted Date [...] day in the morning 30 tablet 5 5 Active Active Problems Problem Noted Date Diagnosed [...] Encounters Date Type Department Care Team Description 01/22/2025 3:30 PM EDT Office Visit [facility] [address] [address] Byron Rodas MD Stage 3 chronic kidney disease, not otherwise specified (HCC) (Primary Dx); Hypertension; Complex renal cyst 01/19/2025 Refill [facility] [address] [phone] Nicole Bright MA 01/16/2025 Refill [facility] [address] [address] Mia Person 01/05/2025 Refill [facility] [address] [phone] Sunni Augustin from Last 3 Months Immunizations Immunization Administration Dates Next Due Hepatitis [...] Sign Reading Time Taken Comments Blood Pressure 122/52 01/22/2025 3:27 PM EDT Pulse 62 01/22/2025 3:27 PM EDT Temperature - - Respiratory Rate - - Oxygen Saturation 97% 05/12/2023 1:49 PM EDT Inhaled Oxygen Concentration - - Weight 64 kg (141 lb) 01/22/2025 3:27 PM EDT Height - - Body Mass Index - - Plan of Treatment Upcoming Encounters Date Type Department Care Team (Late st Contact Info) Description 07/25/2025 11:15 AM EST Office Visit [facility] [address] [phone] Byron Rodas MD [address] [phone] Health Maintenance Due Date Last Done Comments Diabetes: Ophthalmology Exam 10/26/2022 Diabetes: Pedal Pulse Checked 10/26/2022 Diabetes: Sensory Foot Exam 10/26/2022 Diabetes: Visual Foot Exam 10/26/2022 Diabetes: Hemoglobin A1C 02/06/2025 025, 07/12/2024, 04/19/2024, Additional history exists Influenza Vaccine (#1) 2025 4, 06/16/2022, 06/24/2021, Additional history exists Hepatitis B Vaccine Aged Out 01/24/2015, 10/18/2014, 07/20/2014 No longer eligible based on patient's age to complete this topic Pneumococcal Vaccine: 50+ Years Completed 11/16/2019, 05/01/2015, 12/07/2006 Procedures Procedure Name Priority Date/Time Associated Diagnosis Comments PTH, INTACT Routine 01/01/2025 3:40 PM EDT VITAMIN D 25 HYDROXY Routine 01/01/2025 3:40 PM EDT URINE ALBUMIN / CREATININE RATIO Routine 01/01/2025 3:40 PM EDT RENAL FUNCTION PANEL Routine 01/01/2025 3:40 PM EDT from Last 3 Months Results * (ABNORMAL) Urine Albumin / Creatinine Ratio (01/01/2025 3:40 PM EDT) Creatinine, Ur 53.4 Not Estab. mg/dL [facility] Albumin, Urine 34.5 Not Estab. ug/mL [facility] Albumin/Creatin ine Ratio 65(H) 0 - 29 mg/g creat [facility] Comment: Normal: 0 - 29 Moderately increased: 30 - 300 Severely increased: >300 01/01/2025 3:40 PM EDT 01/01/2025 us Byron Rodas MD LAB URINE ORDERABLES Final Resul t [facility] [address] [place] [phone] * (ABNORMAL) Vitamin D 25 Hydroxy (01/01/2025 3:40 PM EDT) Vitamin D, 25-OH, Total 28.1(L) 30.0 - 100.0 ng/mL [facility] Comment: Vitamin D deficiency has been defined by the [place] of [employer] and an Endocrine Society practice guideline as a level of serum 25-OH vitamin D less than 20 ng/mL (1,2). The Endocrine Society went on to further define vitamin D insufficiency as a level between 21 and 29 ng/mL (2). 1. IOM ([place] of Medicine). 2010. Dietary reference intakes for calcium and D. [place]: The National Academies Press. 2. Shantelle MF, Eitan SIM, Obdulio LAZARO, et al. Evaluation, treatment, and prevention of vitamin D deficiency: an Endocrine Society clinical practice guideline. JCEM. 2010; 96(7):1911-30. 01/01/2025 3:40 PM EDT 01/01/2025 us Byron Rodas MD LAB BLOOD ORDERABLES Final Resul t Performing Organization Address City/[facility]/ZIP Co de Phone Number [facility] [address] [place] [address] * PTH, Intact (01/01/2025 3:40 PM EDT) PTH 47 15 - 65 pg/mL [facility] 01/01/2025 3:40 PM EDT 01/01/2025 us Byron Rodas MD LAB BLOOD ORDERABLES Final Resul t Performing Organization Address City/[facility]/ZIP Co de Phone Number [employer] [facility] [address] [place] [address] * (ABNORMAL) Renal Function Panel (01/01/2025 3:40 PM EDT) Glucose 211(H) 70 - 99 mg/dL [facility] BUN 22 8 - 27 mg/dL [facility] Creatinine 1.45(H) 0.76 - 1.27 mg/dL [facility] eGFR CKD-EPI CR 2020 49(L) >59 mL/min/1.7 3 [facility] BUN/Creatinine Ratio 15 10 - 24 [facility] Sodium 139 134 - 144 mmol/L [facility] Potassium 4.5 3.5 - 5.2 mmol/L [facility] Chloride 104 96 - 106 mmol/L [facility] Bicarbonate (CO2) 16(L) 20 - 29 mmol/L [facility] Calcium 8.9 8.6 - 10.2 mg/dL [facility] Albumin 4.3 3.8 - 4.8 g/dL [facility] Phosphorus 3.4 2.8 - 4.1 mg/dL [facility] 01/01/2025 3:40 PM EDT 01/01/2025 Byron Rodas MD LAB BLOOD ORDERABLES Final Resul t [facility] [address] [place] [phone] from Last 3 Months Insurance [facility] ([id number]) [facility] ([id number]) Care Teams Locksmith Relationship Specialty Start Date End Date Name, MD Rodri [address] [place] [phone] PCP - General Internal Medicine 06/25/21
[2025-03-16 11:47] LABS: Anion Gap 11 (12-20); Blood Urea Nitrogen 22 mg/dL (9-16); Calcium 8.5 mg/dL (8.4-10.2); Carbon Dioxide 24 mmol/L (22-29); Chloride 109 mmol/L (96-108); Estimated Glomerular Filt Rate 52; Potassium 4.2 mmol/L (3.3-5.1); Sodium 140 mmol/L (135-145); Uric Acid 4.9 mg/dL (3.4-7.0)
[2025-03-16 11:49] LABS: Hematocrit 39.7 % (42.0-52.0); Hemoglobin 12.9 g/dl (14.0-18.0); Mean Corpuscular HGB Conc 32.5 g/dl (31.0-36.0); Mean Corpuscular Hemoglobin 28.0 pg (27.0-33.0); Mean Corpuscular Volume 86.3 fL (80.0-98.0); NRBC Abs Auto 0.000 X10*3/uL (0.0-0.012); NRBC Pct Auto 0.0 /100WBC (0.0-0.2); Platelet Count 290 X10*3/uL (160-400); Red Blood Count 4.60 X10*6/uL (4.60-5.80); White Blood Count 10.4 X10*3/uL (4.8-10.8)
[2025-03-16 12:11] LABS: Prostate Specific Antigen 1.63 ng/mL (<0.05-4.0)
[2025-03-21 19:23] LABS: Testosterone, Free 47.1 pg/mL (30.0-135.0)
== END 2025-03-16 09:15 | disposition home or self-care (01) ==
LOC: HO.HHCL 09:14
PROVIDERS: Student in an Organized Health Care Education/Training Program; PCP Internal Medicine Geriatric Medicine; Visit Provider Nurse Practitioner Family
DX: E29.1 Testicular hypofunction (principal); M1A.09X0 Idiopathic chronic gout, multiple sites, without tophus (tophi); Z12.5 Encounter for screening for malignant neoplasm of prostate
CPT/HCPCS: 36415; 80048; 84153; 84402; 84403; 84550; 85027

== ENCOUNTER 2025-03-26 11:13 | Outpatient (AMB) | payer OTHER, SELFPAY ==
--- NOTE | 2025-03-26 11:17 | MHC.OFFVIS ---
Intake Visit Reasons: 3m/ CBC/ PSA/ Testo/ PVR(set) Intake Note: Patient is present for 3M/CBC/PSA/TESTO/PVR Urology Medication:TERAZOSIN,TESTOSTERONE Antibiotic Allergy:NONE Blood Thinner:ASPIRIN TODAY'S PVR:0ML'S Arts Manager Required: No Arts Manager Name: rubens Fitzgerald Allergies No Known Allergies Allergy (Verified 03/26/25 11:37) Medication List - Last Reconciled 03/26/25 by [facility]- allopurinol 100 mg PO QAM amlodipine 52 mg PO DAILY aspirin 81 mg PO DAILY blood sugar diagnostic As directed buspirone 5 mg PO TID docusate sodium (Colace) 200 mg (2 x 100 mg) PO BEDTIME empagliflozin (Jardiance) 10 mg PO DAILY ferrous sulfate 325 mg PO QAM flash glucose sensor (FreeStyle Grace 2 Sensor kit) As directed insulin degludec (Tresiba FlexTouch U-100 insulin) 14 units subcut BEDTIME lisinopril 40 mg PO DAILY meclizine 25 mg PO TID PRN multivitamin 1 tab PO QAM omeprazole 20 mg PO DAILY 90 days pravastatin 20 mg PO DAILY terazosin 5 mg PO BEDTIME 90 days testosterone 60.75 mg transdermal DAILY 30 days tirzepatide (Mounjaro) 5 mg subcut .QMONDAY HPI Comments Details: Francisco is a pleasant 79 year old Turkish speaking male patient of Dr. Lund. He has a past medical history of acid reflux, chronic constipation, diabetes, depression, normocytic anemia, and rheumatoid arthritis. He presents to the office today for follow-up regarding his hypogonadism and benign prostatic hyperplasia. In discussion with the patient today reports to be doing and feeling well. He reports compliance with testosterone as prescribed however does discussed with increase in warmer weather he has been showering more frequently. Recent labs were reviewed with the patient today as noted and trended below. We discussed continuation of borderline low testosterone levels. We did discussed further treatment options and risks and benefits of these treatment options. All questions were answered. He reports no bothersome urinary issues or concerns at this time. In office urinalysis results reviewed with the patient today. PVR 0 mL. Discussed at length importance of compliance. We also discussed importance of management and diabetes for improvement in lower urinary tract symptoms as well as overall health and well-being. He otherwise offers no other issues or concerns at this time. Testosterone: 12/24 155, 02/23 124, 04/25 78, 06/25 495, 10/27 458, 09/27 125, 02/25 156, 09/28 381, 04/28 144, 08/28 142, 12/28 175, 04/29 154, 08/29 139, 12/29 279, 725 243 Free testosterone: 02/25 30.4, 04/28 30.5, 08/28 32.1, 12/28 37.3, 04/29 26.6, 08/29 29.3, 12/29 65.4, 03/30 47.1 H/H: 11/26 13.9/41.9, 05/29 14.6/45.8, 05/29 14.2/44.4, 08/28 12.9/39.5, 12/28 14.7/44.9, 02/27 13.6/40.4, 04/29 13.7/42.0, 08/29 13.3/40.8,12/29 13.8/42.3, 03/30 12.9/39.7 PSA: 02/24 2.2, 09/27 1.7, 04/28 3.0, 12/28 1.8, 08/29 1.5, 12/29 2.6, 03/30 1.6 PFSH Medical History Urinary incontinence Chronic constipation Diabetes COVID-19 vaccine series started History of depression Ambulates with cane Eosinophilia Leukocytosis Rheumatoid arthritis Normocytic anemia Surgical History (Updated 01/22/25 @ 10:02 by Jadyn Ward MD) Hx of umbilical hernia repair History of esophagogastroduodenoscopy (EGD) History of cataract extraction History of back surgery Acid reflux History of colonoscopy History of surgical removal of lesion Family History Mother Diabetes Father No problems noted. Social History Household Members: Spouse Housing: House Are you a primary health care aide to a significant other at home: No Do you presently have visiting nurse or other home services: No 75 years or older and lives alone: No Alcohol intake: never Comment: counts correct Patient Tobacco Use Status: Former Tobacco user e-Cigarette/Vaping Use: Never Used service: No Current occupational status: retired Current occupation: rt handed Review of Systems Const Reports as per [facility] Eyes Reports no additional complaints ENT Reports no additional complaints Card Reports as per [facility] Resp Reports no additional complaints GI Reports as per [facility] Reports as per [facility] Neuro Reports as per [facility] Psych Reports as per [facility] Endo Reports no additional complaints Physical Exam Const General: cooperative, healthy appearing, comfortable, no acute distress, well developed, alert and awake Orientation/consciousness: patient oriented x3 Limitations: language barrier HEENT Head: Yes normal to inspection, Yes normocephalic and Yes atraumatic Ears: hearing grossly normal bilaterally Eyes General: appearance normal, both eyes and all related structures Neck Neck: Yes normal visual inspection and Yes trachea midline Chest Chest palpation & inspection: normal inspection of the chest Resp Effort & Inspection: normal respiratory effort and able to speak in complete sentences Cardio Rate: regular rate GI Inspection: Yes normal to inspection General: Yes no CVA tenderness Back/Spine/Pelvis Back: no CVA tenderness Skin General skin exam: no rashes or lesions noted Neuro General: patient oriented x3 Extrem General: Yes normal to inspection Psych Appearance: grossly normal and well kempt Mental Status: mental status grossly normal Speech and movement: Normal speech and movement present and Clear speech present Affect: normal affect Attitude: cooperative Thought process: Normal thought process present Thought content: Normal thought content present Insight: Fair insight present (Psych) Judgement: Fair judgement present (Psych) Office Procedures Post Void Residual Post Residual Void Post Void Residual (PVR): 0 [id number] Void Residual by ultrasound Results AMB Urinalysis, Automated UA Leukoctes 0 Gab/uL Last Edit by LAZARUS Calderon on 03/26/25 11:33 UA Nitrite Negative Last Edit by LAZARUS Calderon on 03/26/25 11:33 UA Urobilinogen 0.2 mg/dL Last Edit by LAZARUS Calderon on 03/26/25 11:33 UA Protein 0 mg/dL Last Edit by LAZARUS Calderon on 03/26/25 11:33 UA pH 6.0 Last Edit by LAZARUS Calderon on 03/26/25 11:33 UA Blood 0 Alf/uL Last Edit by LAZARUS Calderon on 03/26/25 11:33 UA Specific Caldwell 1.010 Last Edit by LAZARUS Calderon on 03/26/25 11:33 UA Ketone Negative Last Edit by LAZARUS Calderon on 03/26/25 11:33 UA Bilirubin 0 mg/dL Last Edit by LAZARUS Calderon on 03/26/25 11:33 UA Glucose 1000 mg/dL Last Edit by LAZARUS Calderon on 03/26/25 11:33 Results Reviewed Results Reviewed: Laboratory Last Values Urine pH (Auto) 6.0 03/26/25 11:27 Specific Caldwell (Auto) 1.010 03/26/25 11:27 Urine Protein (Auto) 0 mg/dL 03/26/25 11:27 Glucose (UA)(Auto) 1000 mg/dL 03/26/25 11:27 Urine Ketones (Auto) Negative 03/26/25 11:27 Urine Blood (Auto) 0 Alf/uL 03/26/25 11:27 Urine Nitrite (Auto) Negative 03/26/25 11:27 Urine Bilirubin (Auto) 0 mg/dL 03/26/25 11:27 Urine Urobilinogen (Auto) 0.2 mg/dL 03/26/25 11:27 Leukocyte Esterase (Auto) 0 Gab/uL 03/26/25 11:27 Assessment & Plan Assessment & Plan (1) Hypogonadism in male: Code(s): E29.1 - Testicular hypofunction Category: Medical (2) Hypogonadism in male: Code(s): E29.1 - Testicular hypofunction Category: Medical Plan In office urinalysis results reviewed with the patient today; as noted above. PVR 0 mL. Continue testosterone; refill provided with increase in dosage to 4 pumps daily. All questions were answered. He reports be happy with current voiding parameters. He currently denies any bothersome urinary issues or concerns. Continue terazosin as discussed and prescribed. Recent PSA, CBC, and testosterone results reviewed with the patient today; as noted above. We did discussed potential causes of hypogonadism as well as further treatment options and risks and benefits of these treatment options. We also discussed the importance of management and diabetes for overall health and well-being. Follow-up in 3 months with PSA, CBC, and testosterone; or sooner with any issues, concerns, and or questions. Orders: Orders Prostate Specific Antigen 3 Months E29.1 - Testicular hypofunction AMB Urinalysis Automated Today Z13.9 - Encounter for screening, unspecified Testosterone, Free/Total 3 Months E29.1 - Testicular hypofunction Complete Blood Count no Diff 3 Months E29.1 - Testicular hypofunction Medications: New testosterone This is an increase in dosage 4 pumps topical DAILY 2 grams 3RF 30 days E29.1 - Testicular hypofunction Discontinued testosterone 3 pumps applied daily - Discontinued Reason: Doctor's Order 60.75 mg transdermal DAILY 30 days 150 grams 5RF E29.1 - Testicular hypofunction Patient Instructions: The patient had an opportunity to ask questions regarding the treatment plan. All questions were answered. Physical exam, labs, and imaging were discussed and reviewed in detail. As well as risks, benefits, and discussion of treatment choices. No major barriers to understanding were identified. The patient expressed understanding and agreement with the above treatment plan. The patient was made aware they should contact our office by phone for worsening of their current condition, the appearance of new symptoms, or with any questions or concerns. Compliance is encouraged with any medications and follow up testing that is ordered. It is a privilege to be allowed the opportunity to participate in? your urological care.? Again, if you have any questions or concerns If you have any questions or concerns please do not hesitate to contact me. The office is [phone]. This note is constructed using voice recognition software. While every effort has been made to ensure accuracy computer network support specialist errors may have been included. Yours sincerely, BETSY Fam Coding Level of Care Code Est Pt Level 3 (49210) Complex EM visit Add On G2211 Diagnoses Hypogonadism in male E29.1 CPT Codes Post Residual Void - PVR CPT Code: 76144-Ktxj Void Residual by ultrasound ([id number])
--- OUTSIDE RECORDS SUMMARY | 2025-03-26 12:22 | XMS_ITS | Clinical Summary ---
Author Organization [facility] Address [address] [address] Phone Care Team Providers Care Knitter Hand Name Role Phone Name, Rodri WINN Primary Care Provider [phone] Allergies Active Allergy Reactions Criticality Noted Date [...] [facility] [address] [address] Byron Rodas MD Stage 3 chronic kidney disease, not otherwise specified (HCC) (Primary Dx); Hypertension; Complex renal cyst 01/19/2025 Refill [facility] [address] [address] Nicole Bright MA 01/16/2025 Refill [facility] [address] [address] Mia Person 01/05/2025 Refill [facility] [address] [phone] Sunni Augustin from Last 3 Months Immunizations [...] [facility] [address] [address] Byron Rodas MD [address] [phone] Health Maintenance Due Date Last Done Comments [...] Creatinine, Ur 53.4 Not Estab. mg/dL [facility] Albumin, Urine 34.5 Not Estab. ug/mL [facility] Albumin/Creatin ine Ratio 65(H) 0 - 29 mg/g creat [facility] Comment: Normal: 0 - 29 Moderately increased: 30 - 300 Severely increased: >300 01/01/2025 3:40 PM EDT 01/01/2025 us Byron Rodas MD LAB URINE ORDERABLES Final Resul t [facility] [address] [place] [phone] * (ABNORMAL) Vitamin D 25 Hydroxy (01/01/2025 3:40 PM EDT) Vitamin D, 25-OH, Total 28.1(L) 30.0 - 100.0 ng/mL [facility] Comment: Vitamin D deficiency has been defined by the [place] of Medicine and an Endocrine Society practice guideline as a level of serum 25-OH vitamin D less than 20 ng/mL (1,2). The Endocrine Society went on to further define vitamin D insufficiency as a level between 21 and 29 ng/mL (2). 1. IOM ([place] of Medicine). 2010. Dietary reference intakes for calcium and D. [place]: The National Academies Press. 2. Shantelle MF, Eitan SIM, Obdulio LAZARO, et al. Evaluation, treatment, and prevention of vitamin D deficiency: an Endocrine Society clinical practice guideline. JCEM. 2010; 96(7):1911-30. 01/01/2025 3:40 PM EDT 01/01/2025 us Byron Rodas MD LAB BLOOD ORDERABLES Final Resul t Performing Organization Address [facility]/ZIP Co de Phone Number [facility] [address] [place] [address] * PTH, Intact (01/01/2025 3:40 PM EDT) PTH 47 15 - 65 pg/mL [facility] 01/01/2025 3:40 PM EDT 01/01/2025 us Byron Rodas MD LAB BLOOD ORDERABLES Final Resul t Performing Organization Address [facility]/ZIP Co de Phone Number [employer] [facility] [address] [place] [address] * (ABNORMAL) Renal Function Panel (01/01/2025 3:40 PM EDT) Glucose 211(H) 70 - 99 mg/dL [facility] BUN 22 8 - 27 mg/dL [facility] Creatinine 1.45(H) 0.76 - 1.27 mg/dL [facility] eGFR CKD-EPI CR 2020 49(L) >59 mL/min/1.7 3 [facility] BUN/Creatinine Ratio 15 10 - 24 [facility] Sodium 139 134 - 144 mmol/L [facility] Potassium 4.5 3.5 - 5.2 mmol/L [facility] Chloride 104 96 - 106 mmol/L [facility] Bicarbonate (CO2) 16(L) 20 - 29 mmol/L [facility] Calcium 8.9 8.6 - 10.2 mg/dL [facility] Albumin 4.3 3.8 - 4.8 g/dL [facility] Phosphorus 3.4 2.8 - 4.1 mg/dL [facility] 01/01/2025 3:40 PM EDT 01/01/2025 Byron Rodas MD LAB BLOOD ORDERABLES Final Resul t [facility] [address] [place] [address] from Last 3 Months Insurance [facility] ([id number]) [facility] ([id number]) Care Teams Knitter Hand Relationship Specialty Start Date End Date Name, MD Rodri [address] [place] [phone] PCP - General Internal Medicine 06/25/21
--- OUTSIDE RECORDS SUMMARY | 2025-03-26 12:22 | XMS_ITS | Encounter Summary ---
Author Organization [employer] Address [address] [facility] 7t [place] [address] Care Team Providers Care Toppiece Cutter Name Role Phone Name, Rodri WINN Primary Care Provider [phone] Ana Pavon PharmD Unavailable [phone] Encounter Details Date Type Department Care Team (Latest Contact Info) Description 02/25/2021 Abstract [facility] CONVERSIONS Dental, Provider, DDS Social History [...] Description 04/05/2025 2:30 PM EDT Clinical Support [facility] DIABETES/NTRN [address] [place] [address] [place] [address] 04/19/2025 10:30 AM EDT Medication Management [facility] MEDICINE [address] [place] [address] [phone] Ana Pavon, PharmD [address] [place], [place] [phone] 05/15/2025 11:15 AM EDT Office Visit [facility] [address] [place] [address] [phone] Name, MD Rodri [address] [place] [address] documented as of this encounter Visit Diagnoses Not on filedocumented in this encounter Care Teams Toppiece Cutter Relationship Specialty Start Date End Date Name, MD Rodri [address] [place], [place] [phone] PCP - General Family Medicine 09/24/15 Ana Pavon, NoelD [address] [place] [address] Pharmacist Internal Medicine 04/28/23 [facility] 09/01/24 documented as of this encounter
== END 2025-03-26 11:53 | disposition home or self-care (01) ==
LOC: HO.HUSH 11:14
PROVIDERS: PCP Internal Medicine Geriatric Medicine; Visit Provider Nurse Practitioner Family
DX: E29.1 Testicular hypofunction (principal); Z13.9 Encounter for screening, unspecified
CPT/HCPCS: 99213; G2211

== ENCOUNTER → 2025-03-26 11:13 | Outpatient (BNVA) | payer OTHER, SELFPAY | PROVIDERS: PCP Internal Medicine Geriatric Medicine; Visit Provider Nurse Practitioner Family | DX: E29.1 Testicular hypofunction (principal) | CPT/HCPCS: 51798; 81003; 99212 ==

== ENCOUNTER 2025-05-08 12:37 | Outpatient (AMB) | payer OTHER, SELFPAY ==
--- NOTE | 2025-05-08 12:51 | A.OFFVIS_ITS ---
Vital Signs 05/08/25 12:53 Height 4 ft 11 in Weight 138 lb 10.732 oz BMI 28.0 BP 130/80 Blood Pressure Location Rt brachial Position Sitting Pulse 64 Pulse Source Pulse Oximeter Pulse Oximetry (%) 98 Oxygen Delivery Method Room Air Intake Visit Reasons: Gout Intake Note: Patient is here to follow up on gout today. Shaker Washer Name: evelin [id number] Accompanied by: Self / Same As Patient Allergies No Known Allergies Allergy (Verified 03/26/25 11:37) HPI HPI Gout: Details: No gout flares since last visit. His legs cramp at night making it difficult to sleep. He has DM related neuropathy. He is experiencing burning in his feet. [facility] Medical History Urinary incontinence Chronic constipation Diabetes COVID-19 vaccine series started History of depression Ambulates with cane Eosinophilia Leukocytosis Rheumatoid arthritis Normocytic anemia Surgical History Hx of umbilical hernia repair History of esophagogastroduodenoscopy (EGD) History of cataract extraction History of back surgery Acid reflux History of colonoscopy History of surgical removal of lesion Family History Mother Diabetes Father No problems noted. Social History Household Members: Spouse Housing: House Are you a primary acute care certified nursing assistant to a significant other at home: No Do you presently have visiting nurse or other home services: No 75 years or older and lives alone: No Alcohol intake: never Comment: counts correct Patient Tobacco Use Status: Former Tobacco user e-Cigarette/Vaping Use: Never Used service: No Current occupational status: retired Current occupation: rt handed Physical Exam Vital Signs: Last Vital Signs Pulse 64 05/08/25 12:53 BP 130/80 05/08/25 12:53 Pulse Ox 98 05/08/25 12:53 Oxygen Delivery Method Room Air 05/08/25 12:53 BMI result Body Mass Index 28.0 Const Other: General: Comfortable Skin: No lesions seen MSK: Heberden nodes present. No tender joints. No synovitis. No tophus present. Normal range of motion of upper extremities and lower extremities. Assessment & Plan Assessment & Plan (1) Gout: Comment: Controlled on allopurinol 100 mg daily Code(s): M10.9 - Gout, unspecified Category: Medical Qualifiers: Gout site: multiple sites Gout etiology: idiopathic Chronicity: chronic Presence of tophus: without tophus Qualified Code(s): M1A.09X0 - Idiopathic chronic gout, multiple sites, without tophus (tophi) Plan: Continue allopurinol 100 mg daily Labs for disease and drug monitoring ordered Return to clinic in 1 year or sooner if needed (2) Bilateral leg cramps: Comment: Discussed importance of increasing hydration. Code(s): R25.2 - Cramp and spasm Category: Medical Plan: Electrolytes ordered to rule out electrolyte disturbance Increase daily hydration If he continues to have muscle cramps and there are no abnormalities on labs, I recommend PCP follow-up. He is on statin -consider statin induced muscle spasms. Orders: Orders Uric Acid Today M1A.09X0 - Idiopathic chronic gout, multiple sites, without tophus (tophi) Aspartate Amino Transferase Today M1A.09X0 - Idiopathic chronic gout, multiple sites, without tophus (tophi) Phosphorus Today R25.2 - Cramp and spasm Sodium Today R25.2 - Cramp and spasm Magnesium Today R25.2 - Cramp and spasm Potassium Today R25.2 - Cramp and spasm Alanine Aminotransferase Today M1A.09X0 - Idiopathic chronic gout, multiple sites, without tophus (tophi) Creatinine Today M1A.09X0 - Idiopathic chronic gout, multiple sites, without tophus (tophi) Calcium Today R25.2 - Cramp and spasm Medications: Refilled allopurinol 100 mg PO QAM 90 tabs 4RF M10.9 - Gout, unspecified Coding Level of Care Code Est Pt Level 4 (67605) Complex EM visit Add On G2211 Diagnoses Idiopathic chronic gout of multiple sites without tophus M1A.09X0 Gout site: multiple sites Gout etiology: idiopathic Chronicity: chronic Presence of tophus: without tophus Bilateral leg cramps R25.2
[2025-05-08 12:53] VITALS: BP 130/80; PULSE 64; O2SAT 98; BMI 28.0
--- OUTSIDE RECORDS SUMMARY | 2025-05-08 13:52 | XMS_ITS | Encounter Summary ---
Author Organization [employer] Address 75 [facility] 7t [place] [address] Care Team Providers Care Bowling Or Skating Front Desk Clerk Name Role Phone Name, Rodri WINN Primary Care Provider Ana Pavon PharmD Unavailable [phone] Encounter Details Date Type Department Care Team (Latest Contact Info) Description 05/03/2025 Travel Social History Tobacco Use Types Packs/Day [...] Care Team (Late st Contact Info) Description 05/09/2025 11:00 AM EDT Clinical Support [address] [address] 05/15/2025 11:15 AM EDT Office Visit [address] [address] Name, MD Rodri [address] [place] [address] 05/31/2025 2:30 PM EDT Clinical Support [facility] DI[facility] [address] [place] [address] [place] [address] 07/18/2025 10:30 AM EST Medication Management [address] [address] PuiaAna, PharmD [address] [place] [address] documented as of this encounter Goals Goal Patient Goal Type Associated Problems Recent Progress Patient-Stated? Author Hemoglobin A1c < 7.5 Result Component 6.6( 1:23 PM EDT) No Puia, Ana, PharmD Record your blood [...] documented as of this encounter Care Teams Bowling Or Skating Front Desk Clerk Relationship Specialty Start Date End Date Name, MD Rodri 230 [place] [address] PCP - General Family Medicine 09/24/15 Ana Pavon PharmD 230 [place] [address] Pharmacist Internal Medicine 04/28/23 [facility] 09/01/24 documented as of this encounter
--- OUTSIDE RECORDS SUMMARY | 2025-05-08 13:52 | XMS_ITS | Encounter Summary ---
Author Organization [employer] Address 75 [facility] 7t [place] [address] Care Team Providers Care Quality Control Tester Name Role Phone Name, Rodri WINN Primary Care Provider [phone] Ana Pavon PharmD Unavailable [phone] Reason for Visit * Reason Comments Med Refill Encounter Details Date Type Department Care Team (Late st Contact Info) Description 04/07/2023 Refill [facility] MEDICINE 230 [place], [place] [phone] Name, MD Rodri 230 [place] [address] Social History Tobacco Use Types Packs/Day Years [...] 10:49 AM EDT Med request came from [facility] who pt uses as a secondary pharmacy. [...] Description 05/09/2025 11:00 AM EDT Clinical Support [address] [address] 05/15/2025 11:15 AM EDT Office Visit [address] [address] Name, MD Rodri [address] [place] [address] 05/31/2025 2:30 PM EDT Clinical Support [facility] DIABETES/NTRN 505 [place] [address] Nguyen Ragsdale, ALDO 230 [place] [address] 07/18/2025 10:30 AM EST Medication Management [address] [address] Ana Pavon, PharmD [address] [place] [address] documented as of this encounter Visit Diagnoses Not on filedocumented in this encounter Care Teams Quality Control Tester Relationship Specialty Start Date End Date Name, MD Rodri [address] [place] [address] PCP - General Family Medicine 09/24/15 Ana Pavon, Mary [address] [place] [address] Pharmacist Internal Medicine 04/28/23 [facility] 09/01/24 documented as of this encounter
--- OUTSIDE RECORDS SUMMARY | 2025-05-08 13:52 | XMS_ITS | Encounter Summary ---
Author Organization [employer] Address 75 [facility] 7t [place] [address] Care Team Providers Care Electrical Equipment Technician Name Role Phone Name, Rodri WINN Primary Care Provider [phone] Ana Pavon PharmD Unavailable [phone] Reason for Visit * Reason Comments Med Refill Encounter Details Date Type Department Care Team ([facility] st Contact Info) Description 06/23/2024 Refill [facility] MEDICINE 230 [place], [place] [phone] Name, MD Rodri 230 [place] [address] Social History Tobacco Use Types Packs/Day Years [...] Description 05/09/2025 11:00 AM EDT Clinical Support [address] [address] 05/15/2025 11:15 AM EDT Office Visit [address] [address] Name, MD Rodri [address] [place] [address] 05/31/2025 2:30 PM EDT Clinical Support [facility] CHC DIABETES/NTRN 505 [place] [address] [place] [address] 07/18/2025 10:30 AM EST Medication Management [address] [address] Puia, Ana, PharmD [address] [place] [address] documented as of this encounter Goals Goal [...] documented as of this encounter Care Teams Electrical Equipment Technician Relationship Specialty Start Date End Date Name, MD Rodri [address] [place] [address] PCP - General Family Medicine 09/24/15 Ana Pavon PharmD 230 [place] [address] Pharmacist Internal Medicine 04/28/23 [facility] 09/01/24 documented as of this encounter
--- OUTSIDE RECORDS SUMMARY | 2025-05-08 13:52 | XMS_ITS | Encounter Summary ---
Author Organization [employer] Address [address] [place] [address] 7t [place] [address] Care Team Providers Care Human Resource Consultant Name Role Phone Name, Rodri WINN Primary Care Provider [phone] Ana Pavon PharmD Unavailable [phone] Reason for Visit * Reason Comments Med Refill Encounter Details Date Type Department Care Team (Late Contact Info) Description 04/13/2023 Refill [facility] MEDICINE [address] [place] [address] [phone] NameRodri MD [address] [place] [address] Social History Tobacco Use Types Packs/Day Years [...] Department Care Team (Late Contact Info) Description 05/09/2025 11:00 AM EDT Clinical Support [facility] MEDICINE [address] [place] [address] [phone] 05/15/2025 11:15 AM EDT Office Visit [facility] MEDICINE [address] [place] [address] [phone] Rodri Lund, MD [address] [place] [address] 05/31/2025 2:30 PM EDT Clinical Support [facility] DIABETES/NTRN [address] [place] [address] Nguyen Ragsdale, ALDO 230 [place], [place] 07/18/2025 10:30 AM EST Medication Management [facility] MEDICINE [address] [place] [address] Ana Pavon PharmD 230 [place] [address] documented as of this encounter Visit Diagnoses Not on filedocumented in this encounter Care Teams Human Resource Consultant Relationship Specialty Start Date End Date Name, MD Rodri [address] [place] [address] PCP - General Family Medicine 09/24/15 Ana Pavon, PharmD [address] [place] [address] [phone] Pharmacist Internal Medicine 04/28/23 [facility] 09/01/24 documented as of this encounter
--- OUTSIDE RECORDS SUMMARY | 2025-05-08 13:52 | XMS_ITS | Encounter Summary ---
Author Organization [employer] Address 75 [facility] 7t [place] [address] Care Team Providers Care Retail Zone Specialist Name Role Phone Name, Rodri WINN Primary Care Provider [phone] Ana Pavon PharmD Unavailable [phone] Reason for Visit * Reason Comments Med Refill Encounter Details Date Type Department Care Team (Late st Contact Info) Description 11/19/2023 Refill [facility] MEDICINE 230 [place], [place] [phone] Name, MD Rodri 230 [place] [address] Social History Tobacco Use Types Packs/Day Years [...] Description 05/09/2025 11:00 AM EDT Clinical Support [address] [address] 05/15/2025 11:15 AM EDT Office Visit [address] [address] Name, MD Rodri [address] [place] [address] 05/31/2025 2:30 PM EDT Clinical Support [facility] CH[facility] DIABETES/NTRN 505 [place] [address] [place] [address] 07/18/2025 10:30 AM EST Medication Management [address] [address] Puia, Ana, PharmD [address] [place] [address] documented as of this encounter Goals Goal [...] documented as of this encounter Care Teams Retail Zone Specialist Relationship Specialty Start Date End Date Name, MD Rodri 230 [place] [address] PCP - General Family Medicine 09/24/15 Ana Pavon PharmD 230 [place] [address] Pharmacist Internal Medicine 04/28/23 [facility] 09/01/24 documented as of this encounter
--- OUTSIDE RECORDS SUMMARY | 2025-05-08 13:52 | XMS_ITS | Encounter Summary ---
Author Organization [employer] Address [address] [facility] 7t [place] [address] Care Team Providers Care Design Tech Name Role Phone Name, Rodri WINN Primary Care Provider [phone] Ana Pavon PharmD Unavailable [phone] Reason for Visit * Reason Comments Med Refill Encounter Details Date Type Department Care Team ([facility] Contact Info) Description 03/24/2023 Refill [facility] MEDICINE [address] [place] [address] [phone] Name, MD Rodri [address] [place] [address] Social History Tobacco Use Types Packs/Day Years [...] Description 05/09/2025 11:00 AM EDT Clinical Support [address] [place] [address] 05/15/2025 11:15 AM EDT Office Visit [address] [place] [address] Name, MD Rodri [address] [place] [address] [place] [address] 05/31/2025 2:30 PM EDT Clinical Support [facility] DIABETES/NTRN 505 [place] [address] Nguyen Ragsdale, ALDO 230 [place] [address] 07/18/2025 10:30 AM EST Medication Management [address] [place] [address] Ana Pavon PharmD [address] [place] [address] documented as of this encounter Visit Diagnoses Not on filedocumented in this encounter Care Teams Design Tech Relationship Specialty Start Date End Date Name, MD Rodri [address] [place] [address] [place] [address] PCP - General Family Medicine 09/24/15 Ana Pavon PharmD [address] [place] [address] Pharmacist Internal Medicine 04/28/23 [facility] 09/01/24 documented as of this encounter
--- OUTSIDE RECORDS SUMMARY | 2025-05-08 13:52 | XMS_ITS | Clinical Summary ---
Author Organization [facility] Address [address] [address] Phone Care Team Providers Care J2Ee Android Developer Name Role Phone Name, Rodri WINN Primary Care Provider [phone] Allergies Active Allergy Reactions Criticality Noted Date [...] Office Visit [facility] [address] [address] Byron Rodas MD [address] [address] Health Maintenance Due Date Last Done Comments Diabetes: Ophthalmology Exam 10/26/2022 Diabetes: Pedal Pulse Checked 10/26/2022 Diabetes: Sensory Foot Exam 10/26/2022 Diabetes: Visual Foot Exam 10/26/2022 Diabetes: Hemoglobin A1C 02/06/2025 03/2 025, 07/12/2024, 04/19/2024, Additional history exists Influenza Vaccine (#1) 2025 4, 06/16/2022, 06/24/2021, Additional history exists Hepatitis B Vaccine Aged Out 01/24/2015, 10/18/2014, 07/20/2014 No longer eligible based on patient's age to complete this topic Pneumococcal Vaccine: 50+ Years Completed 11/16/2019, 05/01/2015, 12/07/2006 Insurance [facility] ([id number]) [facility] ([id number]) Care Teams J2Ee Android Developer Relationship Specialty Start Date End Date Name, MD Rodri [address] [place] [address] [phone] PCP - General Internal Medicine 06/25/21
--- OUTSIDE RECORDS SUMMARY | 2025-05-08 13:52 | XMS_ITS | Encounter Summary ---
Author Organization [employer] Address 75 [facility] 7t [place] [address] Care Team Providers Care Decaler Name Role Phone Name, Rodri WINN Primary Care Provider [phone] Ana Pavon PharmD Unavailable [phone] Encounter Details Date Type Department Care Team (Latest Contact Info) Description 06/25/2022 Abstract [facility] CONVERSIONS Dental, Provider, DDS Social History [...] Description 05/09/2025 11:00 AM EDT Clinical Support [address] [address] 05/15/2025 11:15 AM EDT Office Visit [facility] MEDICINE [address] [place] [address] Name, MD Rodri [address] [place] [address] 05/31/2025 2:30 PM EDT Clinical Support [facility] DIABETES/NTRN 505 [place] [address] Nguyen Ragsdale, ALDO 230 [place] [address] 07/18/2025 10:30 AM EST Medication Management [address] [address] Ana Pavon PharmD 230 [place] [address] documented as of this encounter Visit Diagnoses Not on filedocumented in this encounter Care Teams Decaler Relationship Specialty Start Date End Date Name, MD Rodri 230 [place] [address] PCP - General Family Medicine 09/24/15 Ana Pavon, Mary [address] [place] [address] Pharmacist Internal Medicine 04/28/23 [facility] 09/01/24 documented as of this encounter
--- OUTSIDE RECORDS SUMMARY | 2025-05-08 13:52 | XMS_ITS | Encounter Summary ---
Author Organization [employer] Address [address] [facility] 7t [place] [address] Care Team Providers Care Child Abuse Worker Name Role Phone Name, Rodri WINN Primary Care Provider [phone] Ana Pavon PharmD Unavailable [phone] Reason for Visit * Reason Onset Date Comments Appointment Request 03/06/2025 Encounter Details Date Type Department Care Team ([facility] Contact Info) Description 03/06/2025 Telephone [facility] MEDICINE [address] [place], [place] [phone] Name, MD Rodri [address] [place] [address] Appointment Request Social History Tobacco Use Types Packs/Day Years [...] encounter Miscellaneous Notes * Telephone Encounter - Chantelle Hernandez - 03/06/2025 1:46 PM EDT Tc from pt requesting tor/s appointment. documented in this encounter Plan of Treatment Upcoming Encounters Date Type Department Care Team (Late st Contact Info) Description 05/09/2025 11:00 AM EDT Clinical Support [address] [address] 05/15/2025 11:15 AM EDT Office Visit [facility] MEDICINE [address] [place] [phone] Name, MD Rodri [address] [place] [address] 05/31/2025 2:30 PM EDT Clinical Support [facility] CHC DIABETES/NTRN [address] [place] [address] [place] [address] [phone] 07/18/2025 10:30 AM EST Medication Management [address] [address] Ana Pavon, PharmD [address] [place] [address] documented as of this encounter Goals Goal Patient Goal Type Associated Problems Recent Progress Patient-Stated? Author Hemoglobin A1c < 7.5 Result Component 6.6( 5 1:23 PM EDT) No Ana Pavon PharmD Record your blood [...] documented as of this encounter Care Teams Child Abuse Worker Relationship Specialty Start Date End Date Name, MD Rodri [address] [place] [address] PCP - General Family Medicine 09/24/15 Ana Pavon PharmD [address] [place] [address] Pharmacist Internal Medicine 04/28/23 [facility] 09/01/24 documented as of this encounter
--- OUTSIDE RECORDS SUMMARY | 2025-05-08 13:52 | XMS_ITS | Encounter Summary ---
Author Organization [employer] Address [address] [facility] 7t [place] [address] Care Team Providers Care Apple Picking Supervisor Name Role Phone Name, Rodri WINN Primary Care Provider [phone] Ana Pavon PharmD Unavailable [phone] Encounter Details Date Type Department Care Team (Latest Contact Info) Description 02/25/2021 Abstract [facility] CONVERSIONS Dental, Provider, DDS Social History [...] Description 05/09/2025 11:00 AM EDT Clinical Support [address] [address] 05/15/2025 11:15 AM EDT Office Visit [facility] MEDICINE [address] [place] [address] Name, MD Rodri [address] [place] [address] 05/31/2025 2:30 PM EDT Clinical Support [facility] CHC DIABETES/NTRN [address] [place] [address] Nguyen Ragsdale, ALDO [address] [place] [address] 07/18/2025 10:30 AM EST Medication Management [address] [address] Ana Pavon PharmD [address] [place] [address] documented as of this encounter Visit Diagnoses Not on filedocumented in this encounter Care Teams Apple Picking Supervisor Relationship Specialty Start Date End Date Name, MD Rodri [address] [place] [address] PCP - General Family Medicine 09/24/15 Ana Pavon, Mary [address] [place] [address] Pharmacist Internal Medicine 04/28/23 [facility] 09/01/24 documented as of this encounter
--- OUTSIDE RECORDS SUMMARY | 2025-05-08 13:52 | XMS_ITS | Encounter Summary ---
Author Organization [employer] Address [address] [facility] 7t [place] [address] Care Team Providers Care Cyber Defense Analyst Name Role Phone Name, Rodri WINN Primary Care Provider [phone] Ana Pavon PharmD Unavailable [phone] Encounter Details Date Type Department Care Team (Latest Contact Info) Description 08/23/2019 Abstract [facility] CONVERSIONS Dental, Provider, DDS Social History [...] Description 05/09/2025 11:00 AM EDT Clinical Support [address] [address] 05/15/2025 11:15 AM EDT Office Visit [facility] MEDICINE [address] [place] [address] Name, MD Rodri [address] [place] [address] 05/31/2025 2:30 PM EDT Clinical Support [facility] CHC DIABETES/NTRN [address] [place] [address] [place] [address] 07/18/2025 10:30 AM EST Medication Management [address] [address] Ana Pavon PharmD [address] [place] [address] documented as of this encounter Visit Diagnoses Not on filedocumented in this encounter Care Teams Cyber Defense Analyst Relationship Specialty Start Date End Date Name, MD Rodri [address] [place] [address] PCP - General Family Medicine 09/24/15 Ana Pavon PharmD [address] [place] [address] Pharmacist Internal Medicine 04/28/23 [facility] 09/01/24 documented as of this encounter
--- OUTSIDE RECORDS SUMMARY | 2025-05-08 13:52 | XMS_ITS | Clinical Summary ---
Author Organization [employer] Address [address] [facility] 7t [place] [address] Care Team Providers Care Charge Master Analyst Name Role Phone Name, Rodri WINN Primary Care Provider [phone] Ana Pavon PharmD Unavailable [phone] Allergies No known active allergies Medications allopurinol (Zyloprim) 100 MG tablet Take 100 mg by mouth in the morning. 06/25/20 22 Active terazosin (Hytrin) 5 MG capsule Take 5 mg by mouth at bedtime. 03/02/20 23 Active Diclofenac Sodium 1 % gelIndications: Articular gout APPLY 2 GRAMS TOPICALLY FOUR TIMES A DAY (BULK) 100 g 5 11/23/19 24 Active Testosterone 1.62 % gel 02/11/20 24 Active TRUEplus Lancets 33G misc Use to test blood sugar up to 3 time(s) daily as directed 100 each 11 05/26/20 24 Active omeprazole (PriLOSEC) [address] capsule TAKE ONE CAPSULE BY MOUTH EVERY MORNING 90 capsule 1 06/06/20 24 Active Jardiance 10 MG Take 10 mg by mouth in the morning. Active amLODIPine (Norvasc) 5 MG tabletIndicatio ns:Essential hypertension Take 1 tablet (5 mg) by mouth Once per day. 30 tablet 11 08/29/20 24 025 Active Tirzepatide (Mounjaro) 5 MG/0.5ML solution auto-injectorIn dications:Type 2 diabetes mellitus with other specified complication, with long-term current use of insulin (CMS/HCC) Inject 5 mg under the skin 1 (one) time per week. 2 mL 08/29/20 24 Active aspirin 81 MG EC tabletIndicatio ns:Type 2 diabetes mellitus with other specified complication, without long-term current use of insulin ([facility]),High cholesterol Take 1 tablet (81 mg) by mouth Once per day. 90 tablet 3 11/07/19 25 Active pravastatin (Pravachol) 20 MG tabletIndicatio ns:Type 2 diabetes mellitus with other specified complication, without long-term current use of insulin (CMS/[facility]),High cholesterol Take 1 tablet (20 mg) by mouth Once daily. 90 tablet 3 11/07/19 25 Active lisinopril 40 MG tabletIndicatio ns:Type 2 diabetes mellitus with other specified complication, without long-term current use of insulin (CMS/HCC),Essen tial hypertension Take 1 tablet (40 mg) by mouth Once per day. 30 tablet 11 11/07/19 25 Active Ferrous Sulfate (iron) 325 (65 Fe) MG tablet TAKE ONE TABLET EVERY MORNING 90 tablet 1 12/06/19 25 Active Multiple Vitamin (Multivitamin) tablet TAKE ONE TABLET EVERY MORNING 90 tablet 3 12/06/19 25 Active clotrimazole (Lotrimin) 1 % cream apply to the affected area(s) twice daily 11/07/19 25 Active insulin pen needle (TechLite Pen [place]) 32G x 4 mm miscIndications :Poorly controlled diabetes mellitus ([facility]) USE ONE DAILY TO inject insulin 100 each 3 02/15/20 25 Active busPIRone (Buspar) 5 MG tablet TAKE ONE TABLET THREE TIMES DAILY IN THE MORNING, AT NOON, AND AT BEDTIME 90 tablet 04/17/20 25 Active Continuous Glucose Bobbin Cleaner Hand (FreeStyle Grace 3 Crane) deviceIndicatio ns:Type 2 diabetes mellitus with other specified complication, with long-term current use of insulin ([facility]) 1 each Once per day. Use as directed for CGM 1 each 04/19/20 25 Active Continuous Glucose Sensor (FreeStyle Grace 3 Plus Sensor) miscIndications :Type 2 diabetes mellitus with other specified complication, with long-term current use of insulin ([facility]) Apply 1 every 15 days as directed for CGM 2 each 04/19/20 25 Active glucose blood (FreeStyle Precision Cosme Test) test stripIndication s:Type 2 diabetes mellitus with other specified complication, with long-term current use of insulin ([facility]) Use to test blood sugar up to 3 times daily, as directed 100 each 5 04/19/20 25 Active insulin degludec (Tresiba FlexTouch) 100 UNIT/ML injectionIndica tions:Type 2 diabetes mellitus with other specified complication, without long-term current use of insulin ([facility]) Inject 16 Units under the skin in the morning. 15 mL 5 04/19/20 25 Active famotidine (Pepcid) 40 MG tablet Take 40 mg by mouth in the morning. 04/21/20 22 025 Discontinued(Di scontinued by another clinician) Continuous Blood Gluc Bobbin Cleaner Hand (FreeStyle Grace 2 Crane) deviceIndicatio ns:Poorly controlled diabetes mellitus (CMS/HCC) Use to scan sensor at least every 8 hours, as directed, for CGM 1 each 04/28/20 23 025 Discontinued(Al ternate therapy) glucose blood (FreeStyle Precision Cosme Test) test stripIndication s:Type 2 diabetes mellitus with other specified complication, without long-term current use of insulin ([facility]) Use to test blood sugar up to 3 times daily, as directed 100 each 5 11/22/19 24 025 Discontinued(Al ternate therapy) Continuous Glucose Sensor (FreeStyle Grace 2 Sensor) miscIndications :Poorly controlled diabetes mellitus (CMS/HCC) Apply 1 sensor, as directed, every 14 days for CGM 2 each 11 05/26/20 24 025 Discontinued(Al ternate therapy) insulin degludec (Tresiba FlexTouch) 100 UNIT/ML injectionIndica tions:Type 2 diabetes mellitus with other specified complication, without long-term current use of insulin ([facility]) Inject 16 Units under the skin Once daily. 15 mL 1 11/07/19 25 025 Discontinued(Re order (will not trigger notification to Pharmacy)) busPIRone (Buspar) 5 MG tablet TAKE ONE TABLET THREE TIMES DAILY IN THE MORNING, AT NOON, AND AT BEDTIME 90 tablet 03/15/20 25 025 Discontinued Active Problems Problem Noted [...] Encounters Date Type Department Care Team Description 05/03/2025 Travel 05/01/[address] [facility] MEDICINE [address] [place] [address] Ana Pavon, PharmD 04/26/[address] [facility] MEDICINE [address] [place] [address] Rodri Lund MD CGM Supplies; Appointment 04/19/[address] [facility] MEDICINE [address] [place] [address] Ana Pavon, PharmD Prior Authorization (Freestyle Grace 3 CGM) 04/19/[address] [facility] MEDICINE [address] [place] [address] Ana Pavon, PharmD 04/19/2025 Travel 04/16/2025 Refill [facility] [address] [place] [address] Rodri Lund MD 04/05/2025 2:30 PM EDT Clinical Support [facility] DIABETES/NTRN [address] [place] [address] Type 2 diabetes mellitus with other specified complication, with long-term current use of insulin ([facility]) (Primary Dx) 04/05/2025 Travel 03/16/2025 Orders Only GENERIC EXTERNAL DATA DEPARTMENT Provider, Generic External Data 03/15/2025 Refill [facility] [address] [place] [address] Nancy Nsah MD 03/06/[address] [facility] MEDICINE [address] [place], [place] [phone] Rodri Lund MD Appointment Request 03/01/2025 2:30 PM EDT Clinical Support [facility] DIABETES/NTRN [address] [place], [place] [phone] Nguyen Ragsdale RD Type 2 diabetes mellitus with other specified complication, with long-term current use of insulin ([facility]) (Primary Dx) 03/01/2025 Travel 02/14/2025 Refill [facility] [address] [place], [place] [phone] Rodri Lund MD 02/13/[address] [facility] MEDICINE [address] [place], [place] [phone] Ana Pavon PharmD Poorly controlled diabetes mellitus ([facility]) 02/12/[address] [facility] MEDICINE [address] [place], [place] [phone] Barber Wheeler [place] april recalls from Last 3 Months Immunizations Immunization Administration Dates Next Due Hep B, adult [...] Sign Reading Time Taken Comments Blood Pressure 110/68 04/19/2025 10:46 AM EDT Pulse 75 12/22/2024 11:49 AM EDT Temperature 36.9 C (98.4 F) 12/22/2024 11:49 AM EDT Respiratory Rate 18 12/22/2024 11:49 AM EDT Oxygen Saturation 98% 12/22/2024 11:49 AM EDT Inhaled Oxygen Concentration - - Weight 63.5 kg (140 lb) 04/09/2025 1:10 PM EDT Height 152.4 cm (5') 04/09/2025 1:10 PM EDT Body Mass Index 27.34 04/09/2025 1:10 PM EDT Plan of Treatment Upcoming Encounters Date Type Department Care Team (Late st Contact Info) Description 05/09/2025 11:00 AM EDT Clinical Support [facility] MEDICINE [address] [place] [phone] 05/15/2025 11:15 AM EDT Office Visit [facility] MEDICINE [address] [place] [phone] Name, MD Rodri [address] [place] [phone] 05/31/2025 2:30 PM EDT Clinical Support [facility] CHC DIABETES/NTRN [address] [place] [address] Nguyen Ragsdale, ALDO [address] [place] [address] 07/18/2025 10:30 AM EST Medication Management [address] [address] Ana Pavon, PharmD [address] [place] [address] Health Maintenance Due Date Last Done Comments CT Colonography 1945 FIT DNA/Cologuard 1945 FIT 1945 FOBT 1945 Sigmoidoscopy 1945 Dental Oral Exam 07/14/2024 01/11/2024 Dental Prophylaxis 07/14/2024 01/11/2024 SDOH Screening 10/15/2024 10/15/2023 Eye Exam 11/11/2024 11/11/2022 Dental X-Ray: Bitewings 01/11/2025 01/11/2024 COVID-19 Vaccine ( season) 2025 05/26/2024, 06/17/2023, 06/16/2022, Additional history exists Influenza Vaccine (#1) 2025 , 06/11/2023, 06/16/2022, Additional history exists Lipid Panel 06/28/2025 06/28/2024, 09/0 01/2023, 07/06/2022, Additional history exists Diabetes: Hemoglobin A1C 10/20/2025 025, 11/06/2024, 07/12/2024, Additional history exists Alcohol/Substance Use Screening 12/22/2025 12/22/2024 Depression Screening 12/22/2025 12/22/2024, 12/23/19 Diabetes: Foot Exam 12/22/2025 12/22/2024, 12/22/2024, 12/22/2024, Additional history exists Tobacco Screening 12/22/2025 12/22/2024 Diabetes: Urine Protein Screening 01/01/2026 01/01/2025, 12/22/2024, 09/22/2023, Additional history exists Colonoscopy 01/20/2026 01/20/2023, 12/14/2022 Colorectal Cancer Screening 01/20/2026 Dental X-Ray: Full Mouth 01/11/2027 01/11/2024 DTaP/Tdap/Td Vaccines (3 - Td or Tdap) 01/06/2034 01/07/2024, 11/29/2013, 12/07/2006 Hepatitis B Vaccines Completed 01/24/2015, 10/18/2014, 07/20/2014 Pneumococcal Vaccine: 50+ Years Completed 11/16/2019, 05/01/2015, 12/07/2006 Hepatitis C Screening Completed 10/09/2020 Zoster Vaccines Completed 11/18/2022, 09/06, 11/29/2013 RSV Patients and Patients Aged 60 years or older Completed 08/16/2023 HIB Vaccines Aged Out No longer eligi [...] patient's age to complete this topic Meningococcal B Vaccine Aged Out No l onger eligible based on patient's age to complete [...] Result Component 6.6( 1:23 PM EDT) No Ana Pavon, Mary Record your blood sugar as directed Result Component No Ana Pavon PharmD Note: Use CGM, ensuring sensor is scanned at least once every 8 hours to capture 24H data. Check BG manually, as directed. Procedures Procedure Name Priority Date/Time Associated Diagnosis Comments POCT GLYCATED HEMOGLOBIN, TOTAL Routine 04/19/2025 1:23 PM EDT Type 2 diabetes mellitus with other specified complication, with long-term current use of insulin ([facility]) TESTOSTERONE, FREE (DIALYSIS) AND TOTAL,MS Routine 03/16/2025 9:18 AM EDT PSA, TOTAL Routine 03/16/2025 9:18 AM EDT CBC Routine 03/16/2025 9:18 AM EDT ALBUMIN, RANDOM URINE W/CREATININE Routine 12/22/2024 12:17 PM EDT Type 2 diabetes mellitus with other specified complication, with long-term current use of insulin ([facility]) LIPID PANEL, STANDARD Routine 06/28/2024 9:45 AM EDT Type 2 diabetes mellitus with other specified complication, with long-term current use of insulin ([facility]) Full PROPHYLAXIS - ADULT Routine 01/11/2024 11:00 AM EDT Dental plaque Dental calculus INTRAORAL - COMPLETE SERIES OF RADIOGRAPHIC IMAGES Routine 01/11/2024 11:00 AM EDT PERIODIC ORAL EVALUATION - ESTABLISHED PATIENT Routine 01/11/2024 11:00 AM EDT Dental plaque Dental calculus Encounter for dental examination Gingival recession, localized HM COLONOSCOPY Routine 01/20/2023 1:46 PM EDT DIABETES EYE EXAM Routine 11/11/2022 ZZZ HISTORICAL HEPATITIS A,B,C PROFILE Routine 10/09/2020 1:30 PM EST from Last 3 Months or Most Recently Relevant to Health Maintenance Results * (ABNORMAL) POCT HGB A1C (04/19/2025 1:23 PM EDT) Hemoglobin A1C 6.6(A) 4.0 - 5.7 % QC Media Lot # [id number] Blood 04/19/2025 1:23 PM EDT us Rodri Name POINT OF CARE TEST ENTER/EDIT OR DERABLES Final Result * (ABNORMAL) CBC (03/16/2025 9:18 AM EDT) White Blood Count 10.4 4.8 - 10.8 X10*3/uL [facility] Red Blood Count 4.60 4.60 - 5.80 X10*6/uL [facility] Hemoglobin 12.9(L) 14.0 - 18.0 g/dl [facility] Hematocrit 39.7(L) 42.0 - 52.0 % [facility] Mean Corpuscular Volume 86.3 80.0 - 98.0 fL [facility] Mean Corpuscular Hemoglobin 28.0 27.0 - 33.0 pg [facility] Mean Corpuscular HGB Conc 32.5 31.0 - 36.0 g/dl [facility] Red Cell Distribution Width 14.5 11.0 - 16.0 % [facility] Platelet Count 290 160 - 400 X10*3/uL [facility] Mean Platelet Volume 10.5 9.4 - 12.4 fL [facility] NRBC Pct Auto 0.0 0.0 - 0.2 /100WBC [facility] NRBC Abs Auto 0.000 0.0 - 0.012 X10*3/uL [facility] 03/16/2025 9:18 AM EDT 03/16/2025 11:19 AM EDT us Generic External Data Provider LAB BLOOD ORDERAB LES Final Result [facility] [address] [place] [phone] * (ABNORMAL) Testosterone, Free (Dialysis) And Total, MS (03/16/2025 9:18 AM EDT) Testosterone, Total 243(A) 250 - 1100 ng/dL [facility] Comment:Men with clinically significant hypogonadalsymptoms and testosterone values repeatedly inthe range of the 200-300 ng/dL or less, maybenefit from testosterone treatment afteradequate risk and benefits counseling.For additional information, please refer [email or web address].Row Sham Bow/faq/[email or web address](This link is being provided for informational/educational purposes only.)This test was developed and its analytical performancecharacteristics have been determined by [facility] [place], [place]. It hasnot been cleared or approved by the U.S. Food and DrugAdministration. This assay has been validated pursuantto the CLIA regulations and is used for clinicalpurposes. Testosterone, Free 47.1 30.0 - 135.0 pg/mL [facility] Comment:This test was develo ped and its analytical performancecharacteristics have been determined by [facility] [place], [place]. It hasnot been cleared or approved by the U.S. Food and DrugAdministration. This assay has been validated pursuantto the CLIA regulations and is used for clinicalpurposes.THIS TEST WAS PERFORMED AT:[facility] [place] [address]HJKSEOADARIN FROST MD,PHD 03/16/2025 9:18 AM EDT 03/16/2025 11:19 AM EDT Generic External Data Provider LAB BLOOD ORDERAB LES Final Result Performing Organization Address City/[facility] Co de Phone Number [facility] [address] [place] [phone] * PSA,Total (03/16/2025 9:18 AM EDT) Prostate Specific Antigen 1.63 <0.05 - 4.0 ng/mL [facility] Comment:PSA methodology: Abb sirena Alinity i ChemiluminescentMicroparticle Immunoassay (CMIA) 03/16/2025 9:18 AM EDT 03/16/2025 11:19 AM EDT Generic External Data Provider LAB BLOOD ORDERAB LES Final Result Performing Organization Address City/[facility]/ZIP Co de Phone Number [facility] [address] [place] [phone] * (ABNORMAL) Albumin, Random Urine W/Creatinine (12/22/2024 12:17 PM EDT) Creatinine, Urine 166.04 mg/dL [facility] Microalbumin Urine 159.0 mg/L [facility] Microalbum Creatinine Ratio Ur 95.7(H) <30 ug/mg cr [facility] Comment:Albumin/Creatinine R atio Reference Ranges: Normal: < 30 ug/mg creatinine Microalbuminuria: 30 - 300 ug/mg creatinineClinical Albuminuria: > 300 ug/mg creatinine Urine (Urine, Random) 12/22/2024 12:17 PM EDT 12/22/2024 1:00 PM EDT us Rodri Lund MD LAB URINE ORDERABLES Final Resul t Performing Organization Address [facility] Co de Phone Number [facility] [address] [place] [phone] * (ABNORMAL) Lipid Panel, Standard (06/28/2024 9:45 AM EDT) Triglycerides 161(H) <150 mg/dL [facility] Comment:Desirable Triglyceri de: less than 150 mg/dLBorderline High Triglyceride 150-199 mg/dLHigh Triglyceride: 200-499 mg/dLVery High Triglyceride: greater than or equal to 5OO mg/dL Cholesterol 177 <200 mg/dL [facility] Comment:Desirable Cholestero l: less than 200 mg/dLBorderline High Cholesterol: 200-239 mg/dLHigh Cholesterol: greater than 239 mg/dL LDL Cholesterol Calculated 107(H) <100 mg/dL [facility] Comment:Desirable LDL: less than 100 mg/dLNear Optimal/Above Optimal LDL: 110- 129 mg/dLBorderline High LDL: 130-159 mg/dLHigh LDL: 160-189 mg/dLVery High LDL: greater than or equal to 190 mg/dL HDL Cholesterol 38(L) >40 mg/dL [facility] Comment:Desirable HDL: great er than 40 mg/dL Note: This HDL assay may give artificially low results in patients with liver disease. Blood Venous blood specimen / Unknown 06/28/2024 9:45 AM EDT 06/28/2024 11:12 AM EDT us Rodri Lund MD LAB BLOOD ORDERABLES Final Resul t Performing Organization Address [facility] Co de Phone Number [facility] [address] [place] [phone] * (ABNORMAL) Hm Colonoscopy (01/20/2023 1:46 [...] Historical Provider HISTORICAL/NON ORDERABLE LABS Final Result [facility] [address] from Last 3 Months or Most Recently Relevant to Health Maintenance Insurance [facility] RES[employer] OPTIONS (O D-SNP) LEONID [place]ERNANDO [id number] Care Teams Charge Master Analyst Relationship Specialty Start Date End Date Name, MD Rodri [address] [place] [address] PCP - General Family Medicine 09/24/15 Ana Pavon PharmD [address] [place] [address] Pharmacist Internal Medicine 04/28/23 [facility] 09/01/24
--- OUTSIDE RECORDS SUMMARY | 2025-05-08 13:52 | XMS_ITS | Encounter Summary ---
Author Organization [employer] Address [address] [facility] 7t [place] [address] Care Team Providers Care Aircraft Electronics Technical Officer Name Role Phone Name, Rodri WINN Primary Care Provider [phone] Ana Pavon PharmD Unavailable [phone] Reason for Visit * Reason Comments Med Refill Encounter Details Date Type Department Care Team ([facility] st Contact Info) Description 01/15/2025 Refill [facility] MEDICINE [address] [place], [place] [phone] Name, MD Rodri 230 [place] [address] Social History Tobacco Use Types Packs/Day Years [...] Description 05/09/2025 11:00 AM EDT Clinical Support [address] [address] 05/15/2025 11:15 AM EDT Office Visit [address] [address] Name, MD Rodri [address] [place] [address] 05/31/2025 2:30 PM EDT Clinical Support [facility] CHC DIABETES/NTRN [address] [place] [address] [place] [address] 07/18/2025 10:30 AM EST Medication Management [address] [address] Puia, Ana, PharmD [address] [place] [address] documented as of this encounter Goals Goal [...] documented as of this encounter Care Teams Aircraft Electronics Technical Officer Relationship Specialty Start Date End Date Name, MD Rodri 230 [place] [address] PCP - General Family Medicine 09/24/15 Ana Pavon PharmD 230 [place] [address] Pharmacist Internal Medicine 04/28/23 [facility] 09/01/24 documented as of this encounter
== END 2025-05-08 13:45 | disposition home or self-care (01) ==
LOC: HO.RHES 12:38
PROVIDERS: PCP Internal Medicine Geriatric Medicine; Visit Provider Internal Medicine Rheumatology
DX: M1A.09X0 Idiopathic chronic gout, multiple sites, without tophus (tophi) (principal); R25.2 Cramp and spasm
CPT/HCPCS: 99214; G2211

== ENCOUNTER 2025-05-08 12:37 | Outpatient (REF) | payer OTHER, SELFPAY ==
[2025-05-08 18:24] LABS: Alanine Aminotransferase 30 U/L (0-40); Aspartate Amino Transferase 39 U/L (5-37); Calcium 9.0 mg/dL (8.4-10.2); Estimated Glomerular Filt Rate 47; Magnesium 2.3 mg/dL (1.6-2.6); Potassium 4.6 mmol/L (3.3-5.1); Sodium 141 mmol/L (135-145)
[2025-05-08 18:38] LABS: Uric Acid 3.9 mg/dL (3.4-7.0)
== END 2025-05-08 12:38 | disposition home or self-care (01) ==
LOC: HO.HKASLDS 12:37
PROVIDERS: PCP Internal Medicine Geriatric Medicine; Visit Provider Internal Medicine Rheumatology
DX: M1A.09X0 Idiopathic chronic gout, multiple sites, without tophus (tophi) (principal); R25.2 Cramp and spasm; Z79.899 Other long term (current) drug therapy
CPT/HCPCS: 36415; 82310; 82565; 83735; 84100; 84132; 84295; 84450; 84460; 84550; 99212

== ENCOUNTER 2025-06-05 12:21 | Outpatient (REF) | payer OTHER, SELFPAY ==
--- OUTSIDE RECORDS SUMMARY | 2025-06-05 13:25 | XMS_ITS | Encounter Summary ---
Author Organization [employer] Address 75 [facility] 7t [place] [address] Care Team Providers Care Hvac Technician Name Role Phone Name, Rodri WINN Primary Care Provider [phone] Ana Pavon PharmD Unavailable [phone] Reason for Visit * Reason Comments Med Refill Encounter Details Date Type Department Care Team ([facility] st Contact Info) Description 01/15/2025 Refill [facility] MEDICINE 230 [place], [place] [phone] Name, MD Rodri 230 [place] [address] Social History Tobacco Use Types Packs/Day Years [...] Care Team (Late st Contact Info) Description 07/18/2025 10:30 AM EST Medication Management [address] [address] Ana Pavon, PharmD [address] [place] [address] 08/09/2025 10:30 AM EST Office Visit [address] [address] Name, MD Rodri [address] [place] [address] documented as of this encounter Goals Goal Patient Goal Type Associated Problems Recent Progress Patient-Stated? Author Hemoglobin A1c < 7.5 Result Component 6.6( 1:23 PM EDT) No PuiaDavidAna, PharmD Record your blood sugar as directed [...] documented as of this encounter Care Teams Hvac Technician Relationship Specialty Start Date End Date Name, MD Rodri [address] [place] [address] PCP - General Family Medicine 09/24/15 Ana Pavon PharmD [address] [place] [address] Pharmacist Internal Medicine 04/28/23 [facility] 09/01/24 documented as of this encounter
--- OUTSIDE RECORDS SUMMARY | 2025-06-05 13:25 | XMS_ITS | Encounter Summary ---
Author Organization [facility] Address [address] [facility] 7t [place] [address] Care Team Providers Care Figure Skater Name Role Phone Name, Rodri WINN Primary Care Provider [phone] Ana Pavon PharmD Unavailable [phone] Encounter Details Date Type Department Care Team (Latest Contact Info) Description 08/23/2019 Abstract [facility] CONVERSIONS Dental, Provider, DDS Social [...] Care Team ( st Contact Info) Description 07/18/2025 10:30 AM EST Medication Management [facility] MEDICINE [address] [place] [address] Ana Pavon, PharmD 230 [place] [address] 08/09/2025 10:30 AM EST Office Visit [facility] MEDICINE [address] [place] [address] Rodri Lund MD [address] [place] [address] documented as of this encounter Visit Diagnoses Not on filedocumented in this encounter Care Teams Figure Skater Relationship Specialty Start Date End Date NameRodri MD [address] [place] [address] PCP - General Family Medicine 09/24/15 Ana Pavon, NoelD [address] [place] [address] [place] [phone] Pharmacist Internal Medicine 04/28/23 [facility] 09/01/24 documented as of this encounter
--- OUTSIDE RECORDS SUMMARY | 2025-06-05 13:25 | XMS_ITS | Encounter Summary ---
Author Organization [employer] Address [address] [facility] 7t [place] [address] Care Team Providers Care Assembler Musical Instruments Name Role Phone Name, Rodri WINN Primary Care Provider [phone] Ana Pavon PharmD Unavailable [phone] Encounter Details Date Type Department Care Team (Latest Contact Info) Description 02/25/2021 Abstract [facility] CONVERSIONS Dental, Provider, DDS Social History [...] Description 07/18/2025 10:30 AM EST Medication Management [facility] MEDICINE [address] [place] [phone] Ana Pavon, PharmD 230 [place] [address] 08/09/2025 10:30 AM EST Office Visit [facility] MEDICINE [address] [place] [address] Rodri Lund MD [address] [place] [address] documented as of this encounter Visit Diagnoses Not on filedocumented in this encounter Care Teams Assembler Musical Instruments Relationship Specialty Start Date End Date NameRodri MD [address] [place] [address] PCP - General Family Medicine 09/24/15 Ana Pavon, NoelD [address] [place] [address] [phone] Pharmacist Internal Medicine 04/28/23 [facility] 09/01/24 documented as of this encounter
--- OUTSIDE RECORDS SUMMARY | 2025-06-05 13:25 | XMS_ITS | Encounter Summary ---
Author Organization [employer] Address 75 [facility] 7t [place] [address] Care Team Providers Care Sister Superior Name Role Phone Name, Rodri WINN Primary Care Provider [phone] Ana Pavon PharmD Unavailable [phone] Encounter Details Date Type Department Care Team (Latest Contact Info) Description 06/25/2022 Abstract [facility] CONVERSIONS Dental, Provider, DDS Social History Tobacco [...] Description 07/18/2025 10:30 AM EST Medication Management [facility] MEDICINE [address] [place] [address] Ana Pavon, PharmD 230 [place] [address] 08/09/2025 10:30 AM EST Office Visit [facility] [address] [place] [address] Rodri Lund MD [address] [place] [address] documented as of this encounter Visit Diagnoses Not on filedocumented in this encounter Care Teams Sister Superior Relationship Specialty Start Date End Date NameRodri MD [address] [place] [address] PCP - General Family Medicine 09/24/15 Ana Pavon, NoelD [address] [place] [address] [phone] Pharmacist Internal Medicine 04/28/23 [facility] 09/01/24 documented as of this encounter
--- OUTSIDE RECORDS SUMMARY | 2025-06-05 13:25 | XMS_ITS | Encounter Summary ---
Author Organization [employer] Address 75 [facility] 7t [place] [address] Care Team Providers Care Manager Ui Name Role Phone Name, Rodri WINN Primary Care Provider [phone] Ana Pavon PharmD Unavailable [phone] Reason for Visit * Reason Onset Date Comments Appointment Request 03/06/2025 Encounter Details Date Type Department Care Team ([facility] Contact Info) Description 03/06/2025 Telephone [facility] MEDICINE 230 [place], [place] [phone] Name, MD Rodri 230 [place] [address] Appointment Request Social History Tobacco Use Types [...] Description 07/18/2025 10:30 AM EST Medication Management [address] [address] Ana Pavon, PharmD [address] [place] [address] 08/09/2025 10:30 AM EST Office Visit [address] [address] Name, MD Rodri [address] [place] [address] documented as of this encounter Goals Goal Patient Goal Type Associated Problems Recent Progress Patient-Stated? Author Hemoglobin A1c < 7.5 Result Component 6.6( 1:23 PM EDT) No Puia Ana, PharmD Record your blood sugar as [...] documented as of this encounter Care Teams Manager Ui Relationship Specialty Start Date End Date Name, MD Rodri 230 [place] [address] PCP - General Family Medicine 09/24/15 Ana Pavon, Mary [address] [place] [address] Pharmacist Internal Medicine 04/28/23 [facility] 09/01/24 documented as of this encounter
--- OUTSIDE RECORDS SUMMARY | 2025-06-05 13:26 | XMS_ITS | Encounter Summary ---
Author Organization [employer] Address 75 [facility] 7t [place] [address] Care Team Providers Care Title One Kindergarten Teacher Name Role Phone Name, Rodri WINN Primary Care Provider [phone] Ana Pavon PharmD Unavailable [phone] Reason for Visit * Reason Comments Med Refill Encounter Details Date Type Department Care Team (Late st Contact Info) Description 11/19/[address] [facility] MEDICINE [address] [place], [place] [phone] Name, MD Rodri 230 [place] [address] Social History Tobacco Use Types Packs/Day Years [...] Description 07/18/2025 10:30 AM EST Medication Management [address] [address] Ana Pavon, PharmD [address] [place] [address] 08/09/2025 10:30 AM EST Office Visit [address] [address] Name, MD Rodri [address] [place] [address] documented as of this encounter Goals Goal [...] documented as of this encounter Care Teams Title One Kindergarten Teacher Relationship Specialty Start Date End Date Name, MD Rodri [address] [place] [address] PCP - General Family Medicine 09/24/15 Ana Pavon, NoelD [address] [place] [address] [phone] Pharmacist Internal Medicine 04/28/23 [facility] 09/01/24 documented as of this encounter
--- OUTSIDE RECORDS SUMMARY | 2025-06-05 13:26 | XMS_ITS | Encounter Summary ---
Author Organization [employer] Address 75 [facility] 7t [place] [address] Care Team Providers Care Cook Boat Name Role Phone Name, Rodri WINN Primary Care Provider [phone] Ana Pavon PharmD Unavailable [phone] Reason for Visit * Reason Comments Med Refill Encounter Details Date Type Department Care Team (Late Contact Info) Description 03/24/2023 Refill [facility] MEDICINE [address] [place] [address] [phone] Name, MD Rodri [address] [place] [address] Social History Tobacco Use Types Packs/Day Years [...] Department Care Team (Late Contact Info) Description 07/18/2025 10:30 AM EST Medication Management [address] [address] Ana [facility]on PharmD [facility] [place] [address] 08/09/2025 10:30 AM EST Office Visit [address] [address] Name, [place] [address] documented as of this encounter Visit Diagnoses Not on filedocumented in this encounter Care Teams Cook Boat Relationship Specialty Start Date End Date Name, [place] [address] PCP - General Family Medicine 09/24/15 Ana Pavon PharmD [address] [place] [address] Pharmacist Internal Medicine 04/28/23 [facility] 09/01/24 documented as of this encounter
--- OUTSIDE RECORDS SUMMARY | 2025-06-05 13:26 | XMS_ITS | Encounter Summary ---
Author Organization [employer] Address [address] [place] [address] 7t [place] [address] Care Team Providers Care Meeting/Event Planner Name Role Phone Name, Rodri WINN Primary Care Provider [phone] PuAna villegas PharmD Unavailable [phone] Reason for Visit * Reason Comments Med Refill Encounter Details Date Type Department Care Team (Late Contact Info) Description 04/13/2023 Refill [facility] MEDICINE [address] [place] [address] [phone] Name, MD Rodri [address] [place] [address] [phone] Social History Tobacco Use Types Packs/Day Years [...] Description 07/18/2025 10:30 AM EST Medication Management [facility] MEDICINE 230 [place], [place] [phone] Puia, Ana, PharmD 230 [place], [place] [phone] 08/09/2025 10:30 AM EST Office Visit [facility] MEDICINE [address] [place] [address] Name, MD Rodri [address] [place] [address] documented as of this encounter Visit Diagnoses Not on filedocumented in this encounter Care Teams Meeting/Event Planner Relationship Specialty Start Date End Date Name, MD Rodri [address] [place] [address] PCP - General Family Medicine 09/24/15 Ana Pavon, Mary [address] [place] [address] Pharmacist Internal Medicine 04/28/23 [facility] 09/01/24 documented as of this encounter
--- OUTSIDE RECORDS SUMMARY | 2025-06-05 13:26 | XMS_ITS | Clinical Summary ---
Author Organization [employer] Address [address] [facility] 7t [place] [address] Care Team Providers Care Color Maker Formulator Name Role Phone Name, Rodri WINN Primary Care Provider [phone] Ana Pavon PharmD Unavailable [phone] Allergies No known active allergies Medications allopurinol (Zyloprim) 100 MG tablet Take 100 mg by mouth in the morning. 06/25/20 22 Active terazosin (Hytrin) 5 MG capsule Take 5 mg by mouth at bedtime. 03/02/20 23 Active Diclofenac Sodium 1 % gelIndications:A rticular [...] complication, with long-term current use of insulin (HCC) Inject 5 mg under the skin 1 (one) time per week. 2 mL 11 08/29/20 24 Active aspirin 81 MG EC tabletIndication s:Type 2 diabetes mellitus with other specified complication, without long-term current use of insulin ([facility]),High cholesterol Take 1 tablet (81 mg) by mouth Once per day. 90 tablet 3 11/07/19 25 Active pravastatin (Pravachol) 20 MG tabletIndication s:Type 2 diabetes mellitus with other specified complication, without long-term current use of insulin ([facility]),High cholesterol Take 1 tablet (20 mg) by mouth Once daily. 90 tablet 3 11/07/19 25 Active lisinopril 40 MG tabletIndication s:Type 2 diabetes mellitus with other specified complication, without long-term current use of insulin ([facility]),Essential hypertension Take 1 tablet (40 mg) by [...] 25 Active insulin pen needle (TechLite Pen [place]) 32G x 4 mm miscIndications: Poorly controlled diabetes mellitus (HCC) USE ONE DAILY TO inject insulin 100 each 3 02/15/20 25 Active Continuous Glucose [employer] Attendant (FreeStyle Grace 3 [place]) deviceIndication s:Type 2 diabetes mellitus with other specified complication, with long-term current use of insulin ([facility]) 1 each Once per day. Use as directed for CGM 1 each 04/19/20 25 Active Continuous Glucose Sensor (FreeStyle Grace 3 Plus Sensor) miscIndications: Type 2 diabetes mellitus with other specified complication, with long-term current use of insulin ([facility]) Apply 1 every 15 days as directed for CGM 2 each 04/19/20 25 Active glucose blood (FreeStyle Precision Cosme Test) test stripIndications :Type 2 diabetes mellitus with other specified complication, with long-term current use of insulin ([facility]) Use to test blood sugar up to 3 times daily, as directed 100 each 04/19/20 25 Active insulin degludec (Tresiba FlexTouch) 100 UNIT/ML injectionIndicat ions:Type 2 diabetes mellitus with other specified complication, without long-term current use of insulin ([facility]) Inject 16 Units under the skin in the morning. 15 mL 5 04/19/20 25 Active busPIRone (Buspar) 5 MG tablet TAKE ONE TABLET THREE TIMES DAILY IN THE MORNING, AT NOON, AND AT BEDTIME 90 tablet 05/11/20 25 Active busPIRone (Buspar) 5 MG tablet TAKE ONE TABLET THREE TIMES DAILY IN THE MORNING, AT NOON, AND AT BEDTIME 90 tablet 04/17/20 25 025 Discontinued Active Problems Problem Noted [...] acquired 07/09/2021 Stage 3 chronic kidney disease ([facility]/HCC) 021 Essential hypertension 10/15/2015 Type 2 diabetes mellitus 10/15/2015 Hyperlipidemia 01/24/2013 Anxiety state 03/17/2012 Depressive disorder 03/17/2012 Resolved Problems Problem Noted Date Diagnosed Date Resolved Date Prostatism 05/19/2016 10/15/2023 Encounters Date Type Department Care Team Description 05/17/[address] [facility] MEDICINE [address] [place] [phone] NameRodri MD 05/15/2025 11:15 AM EDT Office Visit [facility] MEDICINE [address] [place] [address] NameRodri MD Type 2 diabetes mellitus with other specified complication, without long-term current use of insulin ([facility]) (Primary Dx) 05/15/2025 Travel 05/11/[address] [facility] MEDICINE [address] [place] [address] NameRodri MD CHARTPREP 05/11/[address] [facility] CHC MED & PEDS [address] [place], [place] [phone] Rodri Lund MD 05/09/2025 11:00 AM EDT Clinical Support [facility] [place] [address] Jazlyn rToy, IVETTE Type 2 diabetes mellitus with other specified complication, with long-term current use of insulin (CMS/HCC) 05/09/2025 Telephone [facility] [place] [address] Rodri Lund MD 05/09/2025 Travel 05/08/2025 Orders Only GENERIC EXTERNAL DATA DEPARTMENT Provider, Generic External Data 05/03/2025 2:30 PM EDT Clinical Support [facility] DIABETES/NTRN [address] [facility] [place] [address] Type 2 diabetes mellitus with other specified complication, with long-term current use of insulin (CMS/[facility]) (Primary Dx) 05/03/2025 Travel 05/01/2025 Telephone [facility] [place] [address] Ana Pavon, PharmD 04/26/2025 Telephone [facility] [place] [address] Rodri Lund MD CGM Supplies; Appointment 04/19/2025 Telephone [facility] [place] [address] Ana Pavon, PharmD Prior Authorization (Freestyle Grace 3 CGM) 04/19/2025 Telephone [facility] [place] [address] Ana Pavon, PharmD 04/19/2025 Travel 04/16/2025 Refill [facility] MED & PEDS [address] [facility] [place] [address] Rodri Lund MD 04/05/2025 2:30 PM EDT Clinical Support [facility] DIABETES/NTRN [address] [facility] [place] [address] Type 2 diabetes mellitus with other specified complication, with long-term current use of insulin (CMS/HCC) (Primary Dx) 04/05/2025 Travel 03/16/2025 Orders Only GENERIC EXTERNAL DATA DEPARTMENT Provider, Generic External Data 03/15/[address] [facility] CHC MED & PEDS [address] [place], [place] [phone] Nancy Nash MD 03/06/[address] [facility] MEDICINE [address] [place] [address] Name, MD Rodri Appointment Request from Last 3 Months Immunizations Immunization Administration [...] Sign Reading Time Taken Comments Blood Pressure 115/52 05/15/2025 11:13 AM EDT Pulse 108 05/15/2025 11:13 AM EDT Temperature 36.1 C (96.9 F) 05/15/2025 11:13 AM EDT Respiratory Rate 14 05/15/2025 11:13 AM EDT Oxygen Saturation 97% 05/15/2025 11:13 AM EDT Inhaled Oxygen Concentration - - Weight 63.3 kg (139 lb 9.6 oz) 05/15/2025 11:13 AM EDT Height 152.4 cm (5') 05/15/2025 11:13 AM EDT Body Mass Index 27.26 05/15/2025 11:13 AM EDT Plan of Treatment Upcoming Encounters Date Type Department Care Team (Late st Contact Info) Description 07/18/2025 10:30 AM EST Medication Management [address] [address] Ana Pavon, NoelD [address] [place] [address] 08/09/2025 10:30 AM EST Office Visit [address] [address] Name, MD Rodri [address] [place], [place] [phone] Health Maintenance Due Date Last Done Comments CT Colonography 1945 FIT DNA/Cologuard 1945 FIT 1945 FOBT 1945 Sigmoidoscopy 1945 Dental Oral Exam 07/14/2024 01/11/2024 Dental Prophylaxis 07/14/2024 01/11/2024 SDOH Screening 10/15/2024 10/15/2023 Dental X-Ray: Bitewings 01/11/2025 01/11/2024 COVID-19 Vaccine ( season) 2025 05/26/2024, 06/17/2023, 06/16/2022, Additional history exists Influenza Vaccine (#1) 2025 , 06/11/2023, 06/16/2022, Additional history exists Lipid Panel 06/28/2025 06/28/2024, 09/0 01/2023, 07/06/2022, Additional history exists Diabetes: Hemoglobin A1C 10/20/20252 025, 11/06/2024, 07/12/2024, Additional history exists Alcohol/Substance Use Screening 12/22/2025 12/22/2024 Depression Screening 12/22/2025 12/22/2024, 12/23/19 Diabetes: Foot Exam 12/22/2025 12/22/2024, 12/22/2024, 12/22/2024, Additional history exists Diabetes: Urine Protein Screening 01/01/2026 01/01/2025, 12/22/2024, 09/22/2023, Additional history exists Colonoscopy 01/20/2026 01/20/2023, 12/14/2022 Colorectal Cancer Screening 01/20/2026 Tobacco Screening 05/15/2026 05/15/2025 Dental X-Ray: Full Mouth 01/11/2027 01/11/2024 Eye Exam 02/02/2027 02/02/2025, 11/11/2022 DTaP/Tdap/Td Vaccines (3 - Td or Tdap) [...] Date/Time Associated Diagnosis Comments POCT GLUCOSE Routine 05/15/2025 11:15 AM EDT Type 2 diabetes mellitus with other specified complication, without long-term current use of insulin ([facility]) URIC ACID Routine 05/08/2025 1:50 PM EDT ALT Routine 05/08/2025 1:50 PM EDT AST Routine 05/08/2025 1:50 PM EDT MAGNESIUM Routine 05/08/2025 1:50 PM EDT PHOSPHATE ( PHOSPHORUS) Routine 05/08/2025 1:50 PM EDT CALCIUM Routine 05/08/2025 1:50 PM EDT CREATININE, SERUM Routine 05/08/2025 1:5 0 PM EDT POTASSIUM Routine 05/08/2025 1:50 PM EDT SODIUM Routine 05/08/2025 1:50 PM EDT POCT GLYCATED HEMOGLOBIN, TOTAL Routine 04/19/2025 1:23 PM EDT Type 2 diabetes mellitus with other specified complication, with long-term current use of insulin ([facility]) TESTOSTERONE, FREE (DIALYSIS) AND TOTAL,MS Routine 03/16/2025 9:18 AM EDT PSA, TOTAL Routine 03/16/2025 9:18 AM EDT CBC Routine 03/16/2025 9:18 AM EDT HM DIABETES EYE EXAM Routine 02/02/2025 ALBUMIN, RANDOM URINE W/CREATININE Routine 12/22/2024 12:17 PM EDT Type 2 diabetes mellitus with other specified complication, with long-term current use of insulin ([facility]/HCC) LIPID PANEL, STANDARD Routine 06/28/2024 9:45 AM EDT Type 2 diabetes mellitus with other specified complication, with long-term current use of insulin ([facility]/HCC) Full PROPHYLAXIS - ADULT Routine 01/11/2024 11:00 AM EDT Dental plaque Dental calculus INTRAORAL - COMPLETE SERIES OF RADIOGRAPHIC IMAGES Routine 01/11/2024 11:00 AM EDT PERIODIC ORAL EVALUATION - ESTABLISHED PATIENT Routine 01/11/2024 11:00 AM EDT Dental plaque Dental calculus Encounter for dental examination Gingival recession, localized HM COLONOSCOPY Routine 01/20/2023 1:46 PM EDT ZZZ HISTORICAL HEPATITIS A,B,C PROFILE Routine 10/09/2020 1:30 PM EST from Last 3 Months or Most Recently Relevant to Health Maintenance Results * POCT Glucose (05/15/2025 11:15 AM EDT) Glucose Blood, POC 115 60 - 200 mg/dL QC Media Lot # [id number] Lot# Expiration Date Blood Capillary blood specimen / Unknown 05/15/2025 11:15 AM EDT Rodri Lund MD POINT OF CARE TEST ENTER/EDIT OR DERABLES Final Result * (ABNORMAL) Creatinine, Serum (05/08/2025 1:50 PM EDT) Creatinine, Serum 1.44(H) 0.5 - 1.4 mg/dL [facility] Estimated Glomerular Filt Rate 47 [facility] Comment:Chronic Kidney Disea se: Estimated GFR < 60 mL/min/1.66w2Lubmsj Kidney Disease: Estimated GFR < 15 mL/min/1.73m2 05/08/2025 1:50 PM EDT 05/08/2025 5:42 PM EDT us Generic External Data Provider LAB BLOOD ORDERAB LES Final Result Performing Organization Address [facility] Co de Phone Number [facility] [address] [place] [phone] * Uric acid (05/08/2025 1:50 PM EDT) Uric Acid 3.9 3.4 - 7.0 mg/dL [facility] 05/08/2025 1:50 PM EDT 05/08/2025 5:42 PM EDT us Generic External Data Provider LAB BLOOD ORDERAB LES Final Result Performing Organization Address [facility] Phone Number [facility] [address] [place] [phone] * ALT (05/08/2025 1:50 PM EDT) Alanine Aminotransferase 30 0 - 40 U/L [facility] 05/08/2025 1:50 PM EDT 05/08/2025 5:42 PM EDT us Generic External Data Provider LAB BLOOD ORDERAB LES Final Result Performing Organization Address [facility] de Phone Number [facility] [address] [place] [phone] * (ABNORMAL) AST (05/08/2025 1:50 PM EDT) Aspartate Amino Transferase 39(H) 5 - 37 U/L [facility] 05/08/2025 1:50 PM EDT 05/08/2025 5:42 PM EDT us Generic External Data Provider LAB BLOOD ORDERAB LES Final Result Performing Organization Address [facility] Co de Phone Number [facility] [address] [place] [address] [phone] * Sodium (05/08/2025 1:50 PM EDT) Sodium 141 135 - 145 mmol/L [facility] 05/08/2025 1:50 PM EDT 05/08/2025 5:42 PM EDT Generic External Data Provider LAB BLOOD ORDERAB LES Final Result Performing Organization Address City/[facility] Co de Phone Number [facility] [address] [place] [phone] * Potassium (05/08/2025 1:50 PM EDT) Pathologist [facility] Potassium 4.6 3.3 - 5.1 mmol/L [facility] 05/08/2025 1:50 PM EDT 05/08/2025 5:42 PM EDT Generic External Data Provider LAB BLOOD ORDERAB LES Final Result Performing Organization Address [facility] de Phone Number [facility] [address] [place] [phone] * Phosphate (As Phosphorus) (05/08/2025 1:50 PM EDT) Phosphorus 3.0 2.7 - 4.5 mg/dL [facility] 05/08/2025 1:50 PM EDT 05/08/2025 5:42 PM EDT Generic External Data Provider LAB BLOOD ORDERAB LES Final Result Performing Organization Address [facility] de Phone Number [facility] [address] [place] [address] [phone] * Magnesium (05/08/2025 1:50 PM EDT) Magnesium 2.3 1.6 - 2.6 mg/dL [facility] 05/08/2025 1:50 PM EDT 05/08/2025 5:42 PM EDT us Generic External Data Provider LAB BLOOD ORDERAB LES Final Result Performing Organization Address City/[facility]/ZIP Co de Phone Number [facility] [address] [place] [phone] * Calcium (05/08/2025 1:50 PM EDT) Pathologist [facility] Calcium 9.0 8.4 - 10.2 mg/dL [facility] 05/08/2025 1:50 PM EDT 05/08/2025 5:42 PM EDT Generic External Data Provider LAB BLOOD ORDERAB LES Final Result Performing Organization Address [facility]/ZIP Co de Phone Number [facility] [address] [place] [phone] * (ABNORMAL) POCT HGB A1C (04/19/2025 1:23 PM EDT) Pathologist [facility] Hemoglobin A1C 6.6(A) 4.0 - 5.7 % QC Media Lot # [id number] Blood 04/19/2025 1:23 PM EDT Rodri Lund MD POINT OF CARE TEST ENTER/EDIT OR DERABLES Final Result * (ABNORMAL) CBC (03/16/2025 9:18 AM EDT) White Blood Count 10.4 4.8 - 10.8 X10*3/uL [facility] Red Blood Count 4.60 4.60 - 5.80 X10*6/uL [facility] Hemoglobin 12.9(L) 14.0 - 18.0 g/dl [facility] Hematocrit 39.7(L) 42.0 - 52.0 % [facility] Mean Corpuscular Volume 86.3 80.0 - 98.0 fL [facility] Mean Corpuscular Hemoglobin 28.0 27.0 - 33.0 pg [facility] Mean Corpuscular HGB Conc 32.5 31.0 - 36.0 g/dl [facility] Red Cell Distribution Width 14.5 11.0 - 16.0 % [facility] Platelet Count 290 160 - 400 X10*3/uL [facility] Mean Platelet Volume 10.5 9.4 - 12.4 fL [facility] NRBC Pct Auto 0.0 0.0 - 0.2 /100WBC [facility] NRBC Abs Auto 0.000 0.0 - 0.012 X10*3/uL [facility] 03/16/2025 9:18 AM EDT 03/16/2025 11:19 AM EDT us Generic External Data Provider LAB BLOOD ORDERAB LES Final Result [facility] [address] [place] [phone] * (ABNORMAL) Testosterone, Free (Dialysis) And Total, MS (03/16/2025 9:18 AM EDT) Testosterone, Total 243(A) 250 - 1100 ng/dL [facility] Comment:Men with clinically significant hypogonadalsymptoms and testosterone values repeatedly inthe range of the 200-300 ng/dL or less, maybenefit from testosterone treatment afteradequate risk and benefits counseling.For additional information, please refer [email or web address]/[email or web address](This link is being provided for informational/educational purposes only.)This test was developed and its analytical performancecharacteristics have been determined by [address] [place], [place]. It hasnot been cleared or approved by the U.S. Food and DrugAdministration. This assay has been validated pursuantto the CLIA regulations and is used for clinicalpurposes. Testosterone, Free 47.1 30.0 - 135.0 pg/mL [facility] Comment:This test was develo ped and its analytical performancecharacteristics have been determined by [facility] [place]. It hasnot been cleared or approved by the U.S. Food and DrugAdministration. This assay has been validated pursuantto the CLIA regulations and is used for clinicalpurposes.THIS TEST WAS PERFORMED AT:[employer] [place] [phone] FROST MD,PHD 03/16/2025 9:18 AM EDT 03/16/2025 11:19 AM EDT Generic External Data Provider LAB BLOOD ORDERAB LES Final Result Performing Organization Address [facility] Co de Phone Number [facility] [address] [place] [phone] * PSA,Total (03/16/2025 9:18 AM EDT) Prostate Specific Antigen 1.63 <0.05 - 4.0 ng/mL [facility] Comment:PSA methodology: Abb sirena Alilainaty i ChemiluminescentMicroparticle Immunoassay (CMIA) 03/16/2025 9:18 AM EDT 03/16/2025 11:19 AM EDT Generic External Data Provider LAB BLOOD ORDERAB LES Final Result Performing Organization Address [facility]/ZIP Co de Phone Number [facility] [address] [place] [phone] * Hm Diabetes Eye Exam (02/02/2025) Eye Exam Normal Normal 02/02/2025 Rodri Lund MD HEALTH MAINTENANCE Final Result * (ABNORMAL) Albumin, Random Urine W/Creatinine (12/22/2024 12:17 PM EDT) Creatinine, Urine 166.04 mg/dL [facility] Microalbumin Urine 159.0 mg/L H [facility] Microalbum Creatinine Ratio Ur 95.7(H) <30 ug/mg cr [facility] Comment:Albumin/Creatinine R at Reference Ranges: Normal: < 30 ug/mg creatinine Microalbuminuria: 30 - 300 ug/mg creatinineClinical Albuminuria: > 300 ug/mg creatinine Urine (Urine, Random) 12/22/2024 12:17 PM EDT 12/22/2024 1:00 PM EDT us Rodri Name MD LAB URINE ORDERABLES Final Resul t [facility] [address] [place] [address] [phone] * (ABNORMAL) Lipid Panel, Standard (06/28/2024 9:45 AM EDT) Triglycerides 161(H) <150 mg/dL [facility] Comment:Desirable Triglyceri de: less than 150 mg/dLBorderline High Triglyceride 150-199 mg/dLHigh Triglyceride: 200-499 mg/dLVery High Triglyceride: greater than or equal to 5OO mg/dL Cholesterol 177 <200 mg/dL [facility] Comment:Desirable Cholestero l: less than 200 mg/dLBorderline High Cholesterol: 200-239 mg/dLHigh Cholesterol: greater than 239 mg/dL LDL Cholesterol Calculated 107(H) <100 mg/dL [facility] Comment:Desirable LDL: less than 100 mg/dLNear Optimal/Above Optimal LDL: 110- 129 mg/dLBorderline High LDL: 130-159 mg/dLHigh LDL: 160-189 mg/dLVery High LDL: greater than or equal to 190 mg/dL HDL Cholesterol 38(L) >40 mg/dL [facility] Comment:Desirable HDL: great er than 40 mg/dL Note: This HDL assay may give artificially low results in patients with liver disease. Blood Venous blood specimen / Unknown 06/28/2024 9:45 AM EDT 06/28/2024 11:12 AM EDT us Rodri Lund MD LAB BLOOD ORDERABLES Final Resul t [facility] [address] [place] [phone] * (ABNORMAL) Colonoscopy (01/20/2023 1:46 PM EDT) Colonoscopy Abnormal( A) Normal Comment:Hx of polyps repeat every 3 yrs us Rodri Name HEALTH MAINTENANCE Final Result * [...] Historical Provider HISTORICAL/NON ORDERABLE LABS Final Result [facility] [address] from Last 3 Months or Most Recently Relevant to Health Maintenance Insurance [facility] [employer] (O D-SNP) LEONID FERNANDO [id number] Care Teams Color Maker Formulator Relationship Specialty Start Date End Date Name, MD Rodri [address] [place] [address] PCP - General Family Medicine 09/24/15 Ana Pavon, NoelD [address] [place] [address] Pharmacist Internal Medicine 04/28/23 [facility] 09/01/24
--- OUTSIDE RECORDS SUMMARY | 2025-06-05 13:26 | XMS_ITS | Encounter Summary ---
Author Organization [employer] Address [address] [facility] 7t [place] [address] Care Team Providers Care Commissioning Specialist Name Role Phone Name, Rodri WINN Primary Care Provider [phone] Ana Pavon PharmD Unavailable [phone] Reason for Visit * Reason Comments Med Refill Encounter Details Date Type Department Care Team ([facility] st Contact Info) Description 06/23/2024 Refill [facility] MEDICINE [address] [place], [place] [phone] Name, MD Rodri [address] [place] [address] Social History Tobacco Use Types Packs/Day Years [...] Description 07/18/2025 10:30 AM EST Medication Management [address] [address] Ana Pavon, PharmD [address] [place] [address] 08/09/2025 10:30 AM EST Office Visit [address] [address] Name, MD Rodri [address] [place] [phone] documented as of this encounter Goals Goal [...] documented as of this encounter Care Teams Commissioning Specialist Relationship Specialty Start Date End Date Name, MD Rodri [address] [place] [address] [phone] PCP - General Family Medicine 09/24/15 Ana Pavon, Mary [address] [place] [address] [place], [place] [phone] Pharmacist Internal Medicine 04/28/23 [facility] 09/01/24 documented as of this encounter
--- OUTSIDE RECORDS SUMMARY | 2025-06-05 13:26 | XMS_ITS | Encounter Summary ---
Author Organization [employer] Address [address] [facility] 7t [place] [address] Care Team Providers Care Pharmacy Clerk Name Role Phone Name, Rodri WINN Primary Care Provider [phone] Ana Pavon PharmD Unavailable [phone] Reason for Visit * Reason Comments Med Refill Encounter Details Date Type Department Care Team (Late st Contact Info) Description 04/07/2023 Refill [facility] MEDICINE [address] [place], [place] [phone] Name, MD Rodri [address] [place] [address] Social History Tobacco Use Types Packs/Day Years [...] 10:49 AM EDT Med request came from [facility] who pt uses as a secondary pharmacy. [...] Description 07/18/2025 10:30 AM EST Medication Management [address] [address] Ana Pavon PharmD [address] [place] [address] 08/09/2025 10:30 AM EST Office Visit [facility] MEDICINE [address] [place] [phone] Name, MD Rodri [address] [place] [phone] documented as of this encounter Visit Diagnoses Not on filedocumented in this encounter Care Teams Pharmacy Clerk Relationship Specialty Start Date End Date Name, MD Rodri [address] [place] [phone] PCP - General Family Medicine 09/24/15 Ana Pavon PharmD [address] [place] [phone] Pharmacist Internal Medicine 04/28/23 [facility] 09/01/24 documented as of this encounter
[2025-06-05 13:43] LABS: Alanine Aminotransferase 32 U/L (0-40); Aspartate Amino Transferase 37 U/L (5-37)
== END 2025-06-05 12:22 | disposition home or self-care (01) ==
LOC: HO.HMGCLDS 12:21
PROVIDERS: PCP Internal Medicine Geriatric Medicine; Visit Provider Internal Medicine Rheumatology
DX: R74.01 Elevation of levels of liver transaminase levels (principal)
CPT/HCPCS: 36415; 84450; 84460

== ENCOUNTER 2025-06-11 11:49 | Outpatient (REF) | payer OTHER, SELFPAY ==
--- NOTE | ~2025-06-11 | XR_ITS ---
EXAMINATION: XR LUMBOSACRAL SPINE CLINICAL INFORMATION: acute mid low back pain x one week COMPARISON: X-ray 06/10/2017 TECHNIQUE: Three views of the lumbosacral spine. FINDINGS: Postsurgical changes with posterior spinal fusion hardware at L4-5. Hardware appears intact. No suspicious perihardware lucency is identified. No evidence of acute fracture or subluxation. Multilevel disc degeneration the visualized spine, including moderate disc degeneration at T12-L1, L1-2. SI joints are symmetric. Minimal bilateral hip joint arthritis. No abnormal soft tissue calcification. No gross pneumoperitoneum. XR/XR lumbar spine 2-3V IMPRESSION: Postoperative changes with posterior spinal fusion at L4-5. No findings suggest hardware complications. No acute osseous finding seen. Electronically signed by: Denny Hussein MD 06/11/2025 12:09 PM EDT
--- OUTSIDE RECORDS SUMMARY | 2025-06-11 11:20 | XMS_ITS | Encounter Summary ---
Author Organization [employer] Address [address] [facility] [address] [place] [address] Care Team Providers Care Rx Specialist Name Role Phone Name, Rodri WINN Primary Care Provider [phone] Ana Pavon PharmD Unavailable [phone] Reason for Visit * Reason Comments Back Pain Encounter Details Date Type Department Care Team ([facility] st Contact Info) Description 06/11/2025 11:20 AM EDT Office Visit [facility] [address] [place], [place] [phone] Kandy Villatoro DO [address] [place] [address] Acute bilateral low back pain without sciatica (Primary Dx) Social History Tobacco Use Types [...] Sign Reading Time Taken Comments Blood Pressure 126/63 06/11/2025 11:13 AM EDT Pulse 63 06/11/2025 11:13 AM EDT Temperature 36.6 C (97.8 F) 06/11/2025 11:13 AM EDT Respiratory Rate 16 06/11/2025 11:1 3 AM EDT Oxygen Saturation - - Inhaled Oxygen Concentration - - Weight 62.1 kg (136 lb 12.8 oz) 025 11:13 AM EDT Height 152.4 cm (5') 06/11/2025 11:13 AM EDT Body Mass Index 26.72 06/11/2025 11:13 AM EDT documented in this encounter Progress Notes * Kandy Villatoro, - 06/11/2025 11:20 AM EDT SUBJECTIVE Francisco Grant is a 79 y.o. male who presents for Sick Visit. He presents to [place] today c/o back pain. He says he is having pain in the middle of his low-back for the last week. He says that the pain goes across the low back and is worse on the left side. He denies any radiation of pain. No numbness/tingling. No bowel or bladder incontinence. He rates his pain 9/10 when standing and 8/10 when sitting. He denies any UTI symptoms. He says he has h/o back surgery many years ago. He says he believes he may have lifted something that triggered the back pain. No trauma or falls. He says he has tried tylenol which has helped a little. He can't take motrin because of his kidneys. History provided by: Patient spanish medical interpreter used: Yes Back Pain This is a new problem. The current episode started in the past 7 days. The problem occurs constantly. The problem is unchanged. The pain is present in the lumbar spine. The pain does not radiate. Thepain is severe. The pain is The same all the time. Pertinent negatives include no abdominal pain, bladder incontinence, bowel incontinence, chest pain, dysuria, fever, headaches, leg pain, numbness, tingling or weakness. He has tried analgesics for the symptoms. The treatment provided mild relief. Review of Systems Constitutional: Negative for activity change, appetite change, fever and unexpected weight change. Respiratory: Negative for cough and chest tightness. Cardiovascular: Negative for chest pain and palpitations. Gastrointestinal: Negative for abdominal pain, bowel incontinence, diarrhea, nausea and vomiting. Genitourinary: Negative for bladder incontinence and dysuria. Musculoskeletal: Positive for arthralgias and back pain. Negative for gait problem. Neurological: Negative for dizziness, tingling, weakness, numbness and headaches. Patient Active Problem List Diagnosis Anxiety state Articular gout Hare's esophagus Depressive disorder Diverticular disease Essential hypertension Hyperlipidemia Male erectile disorder Cyst of kidney, acquired Stage 3 chronic kidney disease (CMS/HCC) (HCC) Type 2 diabetes mellitus (HCC) Acid reflux Anemia Benign prostatic hyperplasia Chronic constipation Effusion of right knee Rheumatoid factor positive History of colonic polyps Male hypogonadism Pain in joint Right knee pain Tubular adenoma Elevated rheumatoid factor No Known Allergies OBJECTIVE Visit Vitals BP 126/63 (BP Location: Left arm, Patient Position: Sitting, BP Cuff Size: Adult) Pulse 63 Temp 97.8 ??F (36.6 ??C) (Temporal) Resp 16 Ht 5' (1.524 m) Wt 136 lb 12.8 oz (62.1 kg) BMI 26.72 kg/m?? Smoking Status Former BSA 1.62 m?? Physical Exam Constitutional: General: He is not in acute distress. Appearance: Normal appearance. Cardiovascular: Rate and Rhythm: Normal rate and regular rhythm. Heart sounds: Normal heart sounds. No murmur heard. Pulmonary: Effort: Pulmonary effort is normal. Breath sounds: Normal breath sounds. No wheezing or rhonchi. Musculoskeletal: Lumbar back: Spasms present. No swelling, deformity, tenderness or bony tenderness. Decreased rangeof motion. Negative right straight leg raise test and negative left straight leg raise test. Neurological: General: No focal deficit present. Mental Status: He is alert and oriented to person, place, and time. Cranial Nerves: Cranial nerves 2-12 are intact. Sensory: Sensation is intact. Motor: Motor function is intact. Gait: Gait is intact. Deep Tendon Reflexes: Reflex Scores: Patellar reflexes are 1+ on the right side and 1+ on the left side. Comments: He is able to toe and heel walk without difficulty Psychiatric: Mood and Affect: Mood normal. Assessment/Plan Diagnoses and all orders for this visit: Acute bilateral low back pain without sciatica -provided reassurance -referred for L-spine XR -treat with medrol dose-jannette -encouraged standing doses of tylenol -trial low dose baclofen TID to help with muscle spasm -trial diclofenac gel prn -treat with short-course of tramadol to help with severe pain -encouraged heat therapy -consider PT if no improvement -advised contact [facility]HC if sx change or worsen, he agrees with plans --Follow-up with PCP as scheduled or sooner prn-- Current Outpatient Medications: acetaminophen (Tylenol 8 Hour) 650 MG ER tablet, Take 1 tablet (650 mg) by mouth every 8 (eight) hours if needed for mild pain. Do not crush, chew, or split., Disp: 60 tablet, Rfl: 1 allopurinol (Zyloprim) 100 MG tablet, Take 100 mg by mouth in the morning., Disp: , Rfl: amLODIPine (Norvasc) 5 MG tablet, Take 1 tablet (5 mg) by mouth Once per day., Disp: 30 tablet, Rfl: 11 aspirin 81 MG EC tablet, Take 1 tablet (81 mg) by mouth Once per day., Disp: 90 tablet, Rfl: 3 baclofen (Lioresal) 10 MG tablet, Take 0.5 tablets (5 mg) by mouth if needed in the morning, at noon, and at bedtime for muscle spasms., Disp: 40 tablet, Rfl: 1 busPIRone (Buspar) 5 MG tablet, TAKE ONE TABLET THREE TIMES DAILY IN THE MORNING, AT NOON, AND AT BEDTIME, Disp: 90 tablet, Rfl: 0 clotrimazole (Lotrimin) 1 % cream, apply to the affected area(s) twice daily, Disp: , Rfl: Continuous Glucose Wharf Builder (FreeStyle Grace 3 Paint Lick) device, 1 each Once per day. Use as directedfor CGM, Disp: 1 each, Rfl: 0 Continuous Glucose Sensor (FreeStyle Grace 3 Plus Sensor) misc, Apply 1 every 15 days as directed for CGM, Disp: 2 each, Rfl: 11 Diclofenac Sodium 1 % gel, Apply 2 g topically if needed in the morning, at noon, in the evening, and at bedtime (pain)., Disp: 150 g, Rfl: 3 Ferrous Sulfate (iron) 325 (65 Fe) MG tablet, TAKE ONE TABLET EVERY MORNING, Disp: 90 tablet, Rfl: 1 glucose blood (FreeStyle Precision Cosme Test) test strip, Use to test blood sugar up to 3 times daily, as directed, Disp: 100 each, Rfl: 5 insulin degludec (Tresiba FlexTouch) 100 UNIT/ML injection, Inject 16 Units under the skin in the morning., Disp: 15 mL, Rfl: 5 insulin pen needle (TechLite Pen [place]) 32G x 4 mm misc, USE ONE DAILY TO inject insulin, Disp: 100 each, Rfl: 3 Jardiance 10 MG, Take 10 mg by mouth in the morning., Disp: , Rfl: lisinopril 40 MG tablet, Take 1 tablet (40 mg) by mouth Once per day., Disp: 30 tablet, Rfl: 11 methylPREDNISolone (Medrol Dospak) 4 MG tablets, Follow schedule on package instructions, Disp: 21 tablet, Rfl: 0 Multiple Vitamin (Multivitamin) tablet, TAKE ONE TABLET EVERY MORNING, Disp: 90 tablet, Rfl: 3 omeprazole (PriLOSEC) [address] capsule, TAKE ONE CAPSULE BY MOUTH EVERY MORNING, Disp: 90 capsule, Rfl: 1 pravastatin (Pravachol) 20 MG tablet, Take 1 tablet (20 mg) by mouth Once daily., Disp: 90 tablet, Rfl: 3 terazosin (Hytrin) 5 MG capsule, Take 5 mg by mouth at bedtime., Disp: , Rfl: Testosterone 1.62 % gel, , Disp: , Rfl: Tirzepatide (Mounjaro) 5 MG/0.5ML solution auto-injector, Inject 5 mg under the skin 1 (one) time per week., Disp: 2 mL, Rfl: 11 traMADol (Ultram) 50 MG tablet, Take 1 tablet (50 mg) by mouth every 8 (eight) hours if needed for severe pain for up to 5 days., Disp: 15 tablet, Rfl: 0 TRUEplus Lancets 33G misc, Use to test blood sugar up to 3 time(s) daily as directed, Disp: 100 each, Rfl: 11 Scribe Attestation: Dick Magallanes, am serving as a scribe to document services personally performed by Kandy Aaron, based on the patient's response to questions by provider and provider's statements to me. 06/11/25 1:16 PM Physicians Attestation: Kandy Magallanes DO, have reviewed the information by the scribe, Dick No, for accuracy and agree with its content. documented in this encounter Plan of Treatment Upcoming Encounters Date Type Department Care Team (Late st Contact Info) Description 07/18/2025 10:30 AM EST Medication Management [address] [address] Ana Pavon PharmD [address] [place] [phone] 08/09/2025 10:30 AM EST Office Visit [address] [address] Name, MD Rodri [address] [place] [phone] documented as of this encounter Goals Goal Patient Goal Type Associated Problems Recent Progress Patient-Stated? Author Hemoglobin A1c < 7.5 Result Component 6.6( 1:23 PM EDT) No David Pavonyssa, PharmD Record your blood sugar as directed Result Component No Pubakari Ana, PharmD Note: Use CGM, ensuring sensor is scanned at least once every 8 hours to capture 24H data. Check BG manually, as directed. documented as of this encounter Procedures Procedure Name Priority Date/Time Associated Diagnosis Comments XR LUMBAR SPINE 2-3 VIEWS STAT 06/11/2025 12:00 PM EDT Acute bilateral low back pain without sciatica documented in this encounter Results * XR Lumbar Spine 2-3 Views (06/11/2025 12:00 PM EDT) Anatomical Region Laterality Modality Spine, L-spine Radiographic Elinor ging 06/11/2025 12:0 0 PM EDT Narrative 06/11/2025 12:12 PM EDT [facility] [address] [place] [address] XRay Report Signed Patient: Francisco Lorenzo MR#: [id number] : 1945 Acct:[id number] Age/Sex: 79 / M ADM Date: 06/11/25 [facility]: Kandy Villatoro DO Ordering Physician: Kandy Villatoro DO Date of Service: 06/11/25 Procedure(s): XR lumbar spine 2-3V Accession Number(s): [id number] cc: Kandy Villatoro DO Reason for Exam: acute mid low back pain x one week EXAMINATION: XR LUMBOSACRAL SPINE CLINICAL INFORMATION: acute mid low back pain x one week COMPARISON: X-ray 06/10/2017 TECHNIQUE: Three views of the lumbosacral spine. FINDINGS: Postsurgical changes with posterior spinal fusion hardware at L4-5. Hardware appears intact. No suspicious perihardware lucency is identified. No evidence of acute fracture or subluxation. Multilevel disc degeneration the visualized spine, including moderate disc degeneration at T12-L1, L1-2. SI joints are symmetric. Minimal bilateral hip joint arthritis. No abnormal soft tissue calcification. No gross pneumoperitoneum. XR/XR lumbar spine 2-3V IMPRESSION: Postoperative changes with posterior spinal fusion at L4-5. No findings suggest hardware complications. No acute osseous finding seen. Electronically signed by: Denny Hussein MD 06/11/2025 12:09 PM EDT Dictated By: Denny Hussein MD Signed By: <Electronically signed by Denny Hussein MD in OV> 06/11/25 1209 DD/ 1200 TD/TT: 06/11/251202 Supervisor Dog License Officer: RENEA Procedure Note Donotgarrisoninterpreter, Image - 06/11/[address] [address] XRay Report Signed Patient: Francisco Lorenzo DMR#: [id number] : 6Acct:[id number] Age/Sex: 79 / MADM Date: 06/11/25 Loc: [facility] Attending Dr: Kandy Villatoro DO Ordering Physician: Kandy Villatoro DO Date of Service: 06/11/25 Procedure(s): XR lumbar spine 2-3V Accession Number(s): [id number] cc: Kandy Villatoro DO Reason for Exam: acute mid low back pain x one week EXAMINATION: XR LUMBOSACRAL SPINE CLINICAL INFORMATION: acute mid low back pain x one week COMPARISON: X-ray 06/10/2017 TECHNIQUE: Three views of the lumbosacral spine. FINDINGS: Postsurgical changes with posterior spinal fusion hardware at L4-5. Hardware appears intact. No suspicious perihardware lucency is identified. No evidence of acute fracture or subluxation. Multilevel disc degeneration the visualized spine, including moderate disc degeneration at T12-L1, L1-2. SI joints are symmetric. Minimal bilateral hip joint arthritis. No abnormal soft tissue calcification. No gross pneumoperitoneum. XR/XR lumbar spine 2-3V IMPRESSION: Postoperative changes with posterior spinal fusion at L4-5. No findings suggest hardware complications. No acute osseous finding seen. Electronically signed by: Denny Hussein MD 06/11/2025 12:09 PM EDT Dictated By: Denny Hussein MD Signed By: <Electronically signed by Denny Hussein MD in OV> 06/11/25 1209 DD/ 1200 TD/TT: 10/06/25 1203 Supervisor Dog License Officer: RENEA us Kandy Irving DO IMG XR PROCEDURES Final Resu lt documented in this encounter Visit Diagnoses Diagnosis Acute bilateral low back pain without sciatica- Primary documented in this encounter Additional Health Concerns Assessment Noted Time PHQ-9 Depression Total Score: 5 12/23/19 25 12:10 PM EDT documented as of this encounter Care Teams Rx Specialist Relationship Specialty Start Date End Date Name, MD Rodri [address] [place], [place] [phone] PCP - General Family Medicine 09/24/15 Ana Pavon PharmD [address] [place], [place] [phone] Pharmacist Internal Medicine 04/28/23 [facility] Care 09/01/24 documented as of this encounter
--- OUTSIDE RECORDS SUMMARY | 2025-06-11 14:22 | XMS_ITS | Encounter Summary ---
Author Organization [employer] Address [address] [facility] [address] [place] [address] Care Team Providers Care Property Supervisor Name Role Phone Name, Rodri WINN Primary Care Provider [phone] Ana Pavon PharmD Unavailable [phone] Reason for Visit * Reason Comments Med Refill Encounter Details Date Type Department Care Team ([facility] st Contact Info) Description 01/15/2025 Refill [facility] [address] [place], [place] [phone] Name, MD Rodri [address] [place] [address] Social History Tobacco Use Types Packs/Day Years [...] 07/18/2025 10:30 AM EST Medication Management [address] [address] Ana Pavon, PharmD [address] [place] [phone] 08/09/2025 10:30 AM EST Office Visit [address] [address] Name, MD Rodri [address] [place] [phone] documented as of this encounter Goals Goal [...] documented as of this encounter Care Teams Property Supervisor Relationship Specialty Start Date End Date Name, MD Rodri [address] [place] [phone] PCP - General Family Medicine 09/24/15 Ana Pavon PharmD [address] [place] [address] Pharmacist Internal Medicine 04/28/23 [facility] 09/01/24 documented as of this encounter
--- OUTSIDE RECORDS SUMMARY | 2025-06-11 14:22 | XMS_ITS | Clinical Summary ---
Author Organization [employer] Address [address] [facility] 7t [place] [address] Care Team Providers Care Geomagnetician Name Role Phone Name, Rodri WINN Primary Care Provider [phone] Ana Pavon PharmD Unavailable [phone] Allergies No known active allergies Medications allopurinol (Zyloprim) 100 MG tablet Take 100 mg by mouth in the morning. 06/25/20 22 Active terazosin (Hytrin) 5 MG capsule Take 5 mg by mouth at bedtime. 03/02/20 23 Active Testosterone 1.62 % gel 02/11/20 24 [...] Once per day. 30 tablet 08/29/20 24 2024 Active Tirzepatide (Mounjaro) 5 MG/0.5ML solution auto-injectorIn dications:Type 2 diabetes mellitus with other specified complication, with long-term current use of insulin ([facility]) Inject 5 mg under the skin 1 (one) time per week. 2 mL 08/29/20 24 Active aspirin 81 MG EC tabletIndicatio ns:Type 2 diabetes mellitus with other specified complication, without long-term current use of insulin (HCC),High cholesterol Take 1 tablet (81 mg) by mouth Once per day. 90 tablet 3 11/07/19 25 Active pravastatin (Pravachol) 20 MG tabletIndicatio ns:Type 2 diabetes mellitus with other specified complication, without long-term current use of insulin ([facility]),High cholesterol Take 1 tablet (20 mg) by mouth Once daily. 90 tablet 11/07/19 25 Active lisinopril 40 MG tabletIndicatio ns:Type 2 diabetes mellitus with other specified complication, without long-term current use of insulin ([facility]),Essential hypertension Take 1 tablet (40 mg) by mouth Once per day. 30 tablet 11/07/19 25 Active Multiple Vitamin (Multivitamin) tablet TAKE ONE TABLET EVERY MORNING 90 tablet 12/06/19 25 Active clotrimazole (Lotrimin) 1 % cream apply to the affected area(s) twice daily 11/07/19 25 Active insulin pen needle (TechLite Pen [place]) 32G x 4 mm miscIndications :Poorly controlled diabetes mellitus (HCC) USE ONE DAILY TO inject insulin 100 each 02/15/20 25 Active Continuous Glucose Heat Treating Bluer (FreeStyle Grace 3 [place]) deviceIndicatio ns:Type 2 diabetes mellitus with other specified complication, with long-term current use of insulin ([facility]) 1 each Once per day. Use as directed for CGM 1 each 04/19/20 25 Active Continuous Glucose Sensor (FreeStyle Grace 3 Plus Sensor) miscIndications :Type 2 diabetes mellitus with other specified complication, with long-term current use of insulin ([facility]) Apply 1 every 15 days as directed for CGM 2 each 04/19/20 25 Active glucose blood (FreeStyle Precision Cosme Test) test stripIndication s:Type 2 diabetes mellitus with other specified complication, with long-term current use of insulin ([facility]) Use to test blood sugar up to 3 times daily, as directed 100 each 04/19/20 25 Active insulin degludec (Tresiba FlexTouch) 100 UNIT/ML injectionIndica tions:Type 2 diabetes mellitus with other specified complication, without long-term current use of insulin ([facility]) Inject 16 Units under the skin in the morning. 15 mL 04/19/20 25 Active busPIRone (Buspar) 5 MG tablet TAKE ONE TABLET THREE TIMES DAILY IN THE MORNING, AT NOON, AND AT BEDTIME 90 tablet 05/11/20 25 Active Ferrous Sulfate (iron) 325 (65 Fe) MG tablet TAKE ONE TABLET EVERY MORNING 90 tablet 1 06/08/20 25 Active methylPREDNISol one (Medrol Dospak) 4 MG tablets Follow schedule on package instructions 21 tablet 06/11/20 25 2024 Active baclofen (Lioresal) 10 MG tablet Take 0.5 tablets (5 mg) by mouth if needed in the morning, at noon, and at bedtime for muscle spasms. 40 tablet 1 06/11/20 25 2025 Active Diclofenac Sodium 1 % gel Apply 2 g topically if needed in the morning, at noon, in the evening, and at bedtime (pain). 150 g 3 06/11/20 Active acetaminophen (Tylenol 8 Hour) 650 MG ER tablet Take 1 tablet (650 mg) by mouth every 8 (eight) hours if needed for mild pain. Do not crush, chew, or split. 60 tablet 1 06/11/20 25 2025 Active traMADol (Ultram) 50 MG tabletIndicatio ns:Acute bilateral low back pain without sciatica Take 1 tablet (50 mg) by mouth every 8 (eight) hours if needed for severe pain for up to 5 days. 15 tablet 06/11/20 25 2024 Active Diclofenac Sodium 1 % gelIndications: Articular gout APPLY 2 GRAMS TOPICALLY FOUR TIMES A DAY (BULK) 100 g 5 11/23/19 24 2024 Discontinued Ferrous Sulfate (iron) 325 (65 Fe) MG tablet TAKE ONE TABLET EVERY MORNING 90 tablet 1 12/06/19 25 2024 Discontinued Active Problems Problem Noted Date Diagnosed [...] acquired 07/09/2021 Stage 3 chronic kidney disease ([facility]/HCC) 021 Essential hypertension 10/15/2015 Type 2 diabetes mellitus 10/15/2015 Hyperlipidemia 01/24/2013 Anxiety state 03/17/2012 Depressive disorder 03/17/2012 Resolved Problems Problem Noted Date Diagnosed Date Resolved Date Prostatism 05/19/2016 10/15/2023 Encounters Date Type Department Care Team Description 06/11/2025 11:20 AM EDT Office Visit [facility] [address] [place] [phone] Kandy Villatoro DO Acute bilateral low back pain without sciatica (Primary Dx) 06/11/2025 Telephone [facility] [address] [place] [phone] Kandy Villatoro DO 06/11/2025 Travel 06/08/[address] [address] Rodri Lund MD 06/05/2025 Orders Only GENERIC EXTERNAL DATA DEPARTMENT Provider, Generic External Data 05/17/[address] [address] Rodri Lund MD 05/15/2025 11:15 AM EDT Office Visit [address] [address] Rodri Lund MD Type 2 diabetes mellitus with other specified complication, without long-term current use of insulin ([facility]) (Primary Dx) 05/15/2025 Travel 05/11/[address] [address] Rodri Lund MD CHARTPREP 05/11/2025 Refill [facility] MED & PEDS [address] [place], [place] [phone] Rodri Lund MD 05/09/2025 11:00 AM EDT Clinical Support [address] [address] Jazlyn Troy, RN Type 2 diabetes mellitus with other specified complication, with long-term current use of insulin ([facility]) 05/09/[address] [address] Rodri Lund MD 05/09/2025 Travel 05/08/2025 Orders Only GENERIC EXTERNAL DATA DEPARTMENT Provider, Generic External Data 05/03/2025 2:30 PM EDT Clinical Support [facility] DIABETES/NTRN [address] [place] [address] Type 2 diabetes mellitus with other specified complication, with long-term current use of insulin (CMS/HCC) (Primary Dx) 05/03/2025 Travel 05/01/2025 Telephone [facility] MEDICINE [address] [place] [address] Ana Pavon, PharmD 04/26/2025 Telephone [facility] MED[facility] [address] [place] [address] Rodri Lund MD CGM Supplies; Appointment 04/19/[address] [address] Ana Pavon, PharmD Prior Authorization (Freestyle Grace 3 CGM) 04/19/[address] [address] Ana Pavon, PharmD 04/19/2025 Travel 04/16/2025 Refill [facility] MED & PEDS [address] [place] [address] Rodri Lund MD 04/05/2025 2:30 PM EDT Clinical Support [facility] [address] [place] [address] Type 2 diabetes mellitus with other specified complication, with long-term current use of insulin (CMS/HCC) (Primary Dx) 04/05/2025 Travel 03/16/2025 Orders Only GENERIC EXTERNAL DATA DEPARTMENT Provider, Generic External Data 03/15/2025 Refill [facility] MED [facility] PEDS [address] [place] [address] Nancy Nash MD from Last 3 Months Immunizations Immunization Administration [...] the past 12 months, has t he [employer], gas, oil or water company threatened to [...] 06/11/2025 11:1 3 AM EDT Oxygen Saturation 97% 05/15/2025 11: 13 AM EDT Inhaled Oxygen Concentration - - Weight 62.1 kg (136 lb 12.8 oz) 025 11:13 AM EDT Height 152.4 cm (5') 06/11/2025 11:13 AM EDT Body Mass Index 26.72 06/11/2025 11:13 AM EDT Plan of Treatment Upcoming Encounters Date Type Department Care Team (Late st Contact Info) Description 07/18/2025 10:30 AM EST Medication Management [facility] MEDICINE [address] [place] [phone] Ana Pavon, PharmD [address] [place] [address] 08/09/2025 10:30 AM EST Office Visit [facility] MEDICINE [address] [place] [address], [place] [address] Name, MD Rodri [address] [place] [address] Health Maintenance Due Date Last Done Comments [...] 12/14/2022 Colorectal Cancer Screening 01/20/2026 Tobacco Screening 06/11/2026 06/11/2025 Dental X-Ray: Full Mouth 01/11/2027 01/11/2024 Eye [...] 6.6( 5 1:23 PM EDT) No Ana Pavon, PharmD Record your blood sugar as directed Result Component No Librado, Ana, PharmD Note: Use CGM, ensuring sensor is scanned at least once every 8 hours to capture 24H data. Check BG manually, as directed. Procedures Procedure Name Priority Date/Time Associated Diagnosis Comments XR LUMBAR SPINE 2-3 VIEWS STAT 06/11/2025 12:00 PM EDT Acute bilateral low back pain without sciatica ALT Routine 06/05/2025 12:26 PM EDT AST Routine 06/05/2025 12:26 PM EDT POCT GLUCOSE Routine 05/15/2025 11:15 AM EDT Type 2 diabetes mellitus with other specified complication, without long-term current use of insulin ([facility]) URIC ACID Routine 05/08/2025 1:50 PM EDT [...] complication, with long-term current use of insulin ([facility]) TESTOSTERONE, FREE (DIALYSIS) AND TOTAL,MS Routine 03/16/2025 9:18 AM EDT PSA, TOTAL Routine 03/16/2025 9:18 AM EDT CBC Routine 03/16/2025 9:18 AM EDT HM DIABETES EYE EXAM Routine 02/02/2025 ALBUMIN, RANDOM URINE W/CREATININE Routine 12/22/2024 12:17 PM EDT Type 2 diabetes mellitus with other specified complication, with long-term current use of insulin ([facility]) LIPID PANEL, STANDARD Routine 06/28/2024 9:45 AM EDT Type 2 diabetes mellitus with other specified complication, with long-term current use of insulin ([facility]) Full PROPHYLAXIS - ADULT Routine 01/11/2024 11:00 [...] Recently Relevant to Health Maintenance Results * XR Lumbar Spine 2-3 Views (06/11/2025 12:00 PM EDT) Anatomical Region Laterality Modality Spine, L-spine Radiographic Elinor ging 06/11/2025 12:0 0 PM EDT Narrative 06/11/2025 12:12 PM EDT [address] [address] XRay Report Signed Patient: Francisco [place] MR#: [id number] : 1945 Acct:[id number] Age/Sex: 79 / M ADM Date: 06/11/25 Loc: .HHCX Attending Dr: Kandy Villatoro DO Ordering Physician: Kandy Villatoro DO Date of Service: 06/11/25 Procedure(s): XR lumbar spine 2-3V Accession Number(s): [id number] cc: Kandy Villatoro DO Reason for Exam: [...] Denny Hussein MD 06/11/2025 12:09 PM EDT RP Dictated By: Denny Hussein MD Signed By: <Electronically signed by Denny uHssein MD in OV> 06/11/25 1209 DD/ 1200 TD/TT: 06/11/25 1203 Hot Metal Mixer Operator Helper: RENEA Procedure Note Donotuseinterpreter, Image - 06/11/2025 [place] [address] XRay Report Signed Patient: Francisco [place] DMR#: [id number] : 6Acct:[id number] Age/Sex: 79 / MADM Date: 06/11/25 Loc: HO.HHCX Attending Dr: Kandy Villatoro DO Ordering Physician: Kandy Villatoro DO Date of Service: 06/11/25 Procedure(s): XR lumbar spine 2-3V Accession Number(s): [id number] cc: Kandy Villatoro DO Reason for Exam: [...] Denny Hussein MD 06/11/2025 12:09 PM EDT RP Dictated By: Denny Hussein MD Signed By: <Electronically signed by Denny Hussein MD in OV> 06/11/25 1209 DD/ 1200 TD/TT: 06/11/25 1203 Hot Metal Mixer Operator Helper: RENEA us Kandy Villatoro DO IMG XR PROCEDURES Final Resu lt * ALT (06/05/2025 12:26 PM EDT) Only the most recent of2 resultswithin the time period is included. Alanine Aminotransferase 32 0 - 40 U/L [facility] 06/05/2025 12:2 6 PM EDT 06/05/2025 1:09 PM EDT us Generic External Data Provider LAB BLOOD ORDERAB LES Final Result Performing Organization Address [facility] Co de Phone Number [facility] [address] [place] [phone] * AST (06/05/2025 12:26 PM EDT) Only the most recent of2 resultswithin the time period is included. Aspartate Amino Transferase 37 5 - 37 U/L [facility] 06/05/2025 12:2 6 PM EDT 06/05/2025 1:09 PM EDT us Generic External Data Provider LAB BLOOD ORDERAB LES Final Result Performing Organization Address [facility] Co de Phone Number [facility] [address] [place] [phone] * POCT Glucose (05/15/2025 11:15 AM EDT) Glucose Blood, POC 115 60 - 200 mg/dL QC Media Lot # [id number] Lot# Expiration Date Blood Capillary blood specimen / Unknown 05/15/2025 11:15 AM EDT Rodrisae Lund MD POINT OF CARE TEST ENTER/EDIT OR DERABLES Final Result * (ABNORMAL) Creatinine, Serum (05/08/2025 1:50 PM EDT) Creatinine, Serum 1.44(H) 0.5 - 1.4 mg/dL [facility] Estimated Glomerular Filt Rate 47 [facility] Comment:Chronic Kidney Disea se: Estimated GFR < 60 mL/min/1.24v2Ytwhgt Kidney Disease: Estimated GFR < 15 mL/min/1.73m2 05/08/2025 1:50 PM EDT 05/08/2025 5:42 PM EDT Generic External Data Provider LAB BLOOD ORDERAB LES Final Result Performing Organization Address City/[facility]/ZIP Co de Phone Number [facility] [address] [place] [phone] * Uric acid (05/08/2025 1:50 PM EDT) Uric Acid 3.9 3.4 - 7.0 mg/dL [facility] 05/08/2025 1:50 PM EDT 05/08/2025 5:42 PM EDT Generic External Data Provider LAB BLOOD ORDERAB LES Final Result Performing Organization Address City/[facility] Co de Phone Number [facility] [address] [place] [phone] * Sodium (05/08/2025 1:50 PM EDT) Sodium 141 135 - 145 mmol/L [facility] 05/08/2025 1:50 PM EDT 05/08/2025 5:42 PM EDT Generic External Data Provider LAB BLOOD ORDERAB LES Final Result Performing Organization Address [facility] Co de Phone Number [facility] [address] [place] [phone] * Potassium (05/08/2025 1:50 PM EDT) Potassium 4.6 3.3 - 5.1 mmol/L [facility] 05/08/2025 1:50 PM EDT 05/08/2025 5:42 PM EDT Generic External Data Provider LAB BLOOD ORDERAB LES Final Result Performing Organization Address [facility] Co mi Phone Number [facility] [address] [place] [phone] * Phosphate (As Phosphorus) (05/08/2025 1:50 PM EDT) Phosphorus 3.0 2.7 - 4.5 mg/dL [facility] 05/08/2025 1:50 PM EDT 05/08/2025 5:42 PM EDT Generic External Data Provider LAB BLOOD ORDERAB LES Final Result Performing Organization Address [facility] Co de Phone Number [facility] [address] [place] [phone] * Magnesium (05/08/2025 1:50 PM EDT) Magnesium 2.3 1.6 - 2.6 mg/dL [facility] 05/08/2025 1:50 PM EDT 05/08/2025 5:42 PM EDT Generic External Data Provider LAB BLOOD ORDERAB LES Final Result Performing Organization Address City/[facility]/ZIP Co de Phone Number [facility] [address] [place] [address] [phone] * Calcium (05/08/2025 1:50 PM EDT) Pathologist [facility] Calcium 9.0 8.4 - 10.2 mg/dL [facility] 05/08/2025 1:50 PM EDT 05/08/2025 5:42 PM EDT Generic External Data Provider LAB BLOOD ORDERAB LES Final Result Performing Organization Address [facility]/ZIP Co de Phone Number [facility] [address] [place] [phone] * (ABNORMAL) POCT HGB A1C (04/19/2025 1:23 PM EDT) Pathologist [facility] Hemoglobin A1C 6.6(A) 4.0 - 5.7 % QC Media Lot # [id number] Blood 04/19/2025 1:2 3 PM EDT Rodri Lund MD POINT OF CARE TEST ENTER/EDIT OR DERABLES Final Result * (ABNORMAL) CBC (03/16/2025 9:18 AM EDT) Pathologist [facility] White Blood Count 10.4 4.8 - 10.8 X10*3/uL [facility] Red Blood Count 4.60 4.60 - 5.80 X10*6/uL [facility] Hemoglobin 12.9(L) 14.0 - 18.0 g/dl [facility] Hematocrit 39.7(L) 42.0 - 52.0 % [facility] Mean Corpuscular Volume 86.3 80.0 - 98.0 fL [facility] Mean Corpuscular Hemoglobin 28.0 27.0 - 33.0 pg [facility] Mean Corpuscular HGB Conc 32.5 31.0 - 36.0 g/dl [facility] Red Cell Distribution Width 14.5 11.0 - 16.0 % [facility] Platelet Count 290 160 - 400 X10*3/uL [facility] Mean Platelet Volume 10.5 9.4 - 12.4 fL [facility] NRBC Pct Auto 0.0 0.0 - 0.2 /100WBC [facility] NRBC Abs Auto 0.000 0.0 - 0.012 X10*3/uL [facility] 03/16/2025 9:18 AM EDT 03/16/2025 11:19 AM EDT us Generic External Data Provider LAB BLOOD ORDERAB LES Final Result [facility] [address] [place] [phone] [phone] * (ABNORMAL) Testosterone, Free (Dialysis) And Total, MS (03/16/2025 9:18 AM EDT) Testosterone, Total 243(A) 250 - 1100 ng/dL [facility] Comment:Men with clinically significant hypogonadalsymptoms and testosterone values repeatedly inthe range of the 200-300 ng/dL or less, maybenefit from testosterone treatment afteradequate risk and benefits counseling.For additional information, please refer [email or web address](This link is being provided for informational/educational purposes only.)This test was developed and its analytical performancecharacteristics have been determined by [facility] [place], [place]. It hasnot been cleared or approved by the U.S. Food and DrugAdministration. This assay has been validated pursuantto the CLIA regulations and is used for clinicalpurposes. Testosterone, Free 47.1 30.0 - 135.0 pg/mL [facility] Comment:This test was develo ped and its analytical performancecharacteristics have been determined by [facility] [place] [place]. It hasnot been cleared or approved by the U.S. Food and DrugAdministration. This assay has been validated pursuantto the CLIA regulations and is used for clinicalpurposes.THIS TEST WAS PERFORMED AT:[employer]/[id number] [place] [id number] FROST MD,PHD 03/16/2025 9:18 AM EDT 03/16/2025 11:19 AM EDT Generic External Data Provider LAB BLOOD ORDERAB LES Final Result Performing Organization Address City/[facility]/ZIP Co de Phone Number [facility] [address] [place] [phone] * PSA,Total (03/16/2025 9:18 AM EDT) Prostate Specific Antigen 1.63 <0.05 - 4.0 ng/mL [facility] Comment:PSA methodology: Abb sirena Alilainaty i ChemiluminescentMicroparticle Immunoassay (CMIA) 03/16/2025 9:18 AM EDT 03/16/2025 11:19 AM EDT Generic External Data Provider LAB BLOOD ORDERAB LES Final Result Performing Organization Address City/[facility] Co de Phone Number [facility] [address] [place] [phone] * Diabetes Eye Exam (02/02/2025) Eye Exam Normal Normal 02/02/2025 Rodri Lund MD HEALTH MAINTENANCE Final Result * (ABNORMAL) Albumin, Random Urine W/Creatinine (12/22/2024 12:17 PM EDT) Creatinine, Urine 166.04 mg/dL [facility] Microalbumin Urine 159.0 mg/L [facility] Microalbum Creatinine Ratio Ur 95.7(H) <30 ug/mg cr [facility] Comment:Albumin/Creatinine R atio Reference Ranges: Normal: < 30 ug/mg creatinine Microalbuminuria: 30 - 300 ug/mg creatinineClinical Albuminuria: > 300 ug/mg creatinine Urine (Urine, Random) 12/22/2024 12:17 PM EDT 12/22/2024 1:00 PM EDT us Rodri Lund MD LAB URINE ORDERABLES Final Resul t Performing Organization Address [facility] de Phone Number [facility] [address] [place] [address] [phone] * (ABNORMAL) Lipid Panel, Standard (06/28/2024 9:45 AM EDT) Triglycerides 161(H) <150 mg/dL [facility] Comment:Desirable Triglyceri de: less than 150 mg/dLBorderline High Triglyceride 150-199 mg/dLHigh Triglyceride: 200-499 mg/dLVery High Triglyceride: greater than or equal to 5OO mg/dL Cholesterol 177 <200 mg/dL [facility] Comment:Desirable Cholestero l: less than 200 mg/dLBorderline High Cholesterol: 200-239 mg/dLHigh Cholesterol: greater than 239 mg/dL LDL Cholesterol Calculated 107(H) <100 mg/dL [facility] Comment:Desirable LDL: less than 100 mg/dLNear Optimal/Above Optimal LDL: 110- 129 mg/dLBorderline High LDL: 130-159 mg/dLHigh LDL: 160-189 mg/dLVery High LDL: greater than or equal to 190 mg/dL HDL Cholesterol 38(L) >40 mg/dL [facility] Comment:Desirable HDL: great er than 40 mg/dL Note: This HDL assay may give artificially low results in patients with liver disease. Blood Venous blood specimen / Unknown 06/28/2024 9:45 AM EDT 06/28/2024 11:12 AM EDT us Rodri Lund MD LAB BLOOD ORDERABLES Final Resul t Performing Organization Address City/[facility]/ZIP Co de Phone Number [facility] [address] [place] [phone] * (ABNORMAL) Colonoscopy (01/20/2023 1:46 PM EDT) Colonoscopy Abnormal( A) Normal Comment:Hx of polyps repeat every 3 yrs us Rordi Name HEALTH MAINTENANCE Final Result * Hepatitis [...] Historical Provider HISTORICAL/NON ORDERABLE LABS Final Result [facility] [address] from Last 3 Months or Most Recently Relevant to Health Maintenance Insurance [facility] ALF OPTIONS (O D-SNP) LEONID FERNANDO [id number] Care Teams Geomagnetician Relationship Specialty Start Date End Date Name, MD Rodri [address] [place] [address] PCP - General Family Medicine 09/24/15 Ana Pavon, Mary [address] [place] [address] Pharmacist Internal Medicine 04/28/23 [facility] 09/01/24
--- OUTSIDE RECORDS SUMMARY | 2025-06-11 14:22 | XMS_ITS | Encounter Summary ---
Author Organization [employer] Address [address] [facility] 7t [place] [address] Care Team Providers Care Hose Seamer Name Role Phone Name, Rodri WINN Primary Care Provider [phone] Ana Pavon PharmD Unavailable [phone] Reason for Visit * Reason Onset Date Comments Appointment Request 03/06/2025 Encounter Details Date Type Department Care Team ([facility] Contact Info) Description 03/06/2025 Telephone [facility] MEDICINE [address] [place], [place] [phone] Name, MD Rodri [address] [place] [address] Appointment Request Social History Tobacco Use Types [...] Description 07/18/2025 10:30 AM EST Medication Management [address] [address] Ana Pavon, PharmD [address] [place] [phone] 08/09/2025 10:30 AM EST Office Visit [address] [address] Name, MD Rodri [address] [place] [phone] documented as of this encounter Goals Goal [...] documented as of this encounter Care Teams Hose Seamer Relationship Specialty Start Date End Date Name, MD Rodri [address] [place] [address] PCP - General Family Medicine 09/24/15 Ana Pavon, Mary [address] [place] [address] Pharmacist Internal Medicine 04/28/23 [facility] Care 09/01/24 documented as of this encounter
--- OUTSIDE RECORDS SUMMARY | 2025-06-11 14:22 | XMS_ITS | Encounter Summary ---
Author Organization [employer] Address 75 [facility] 7t [place] [address] Care Team Providers Care Aircraft Landing Gear Inspector Name Role Phone Name, Rodri WINN Primary Care Provider [phone] Ana Pavon PharmD Unavailable [phone] Encounter Details Date Type Department Care Team (Latest Contact Info) Description 06/25/2022 Abstract [facility] CONVERSIONS Dental, Provider, DDS Social History Tobacco [...] Description 07/18/2025 10:30 AM EST Medication Management [facility] MEDICINE [address] [place] [address] Ana Pavon, PharmD 230 [place] [address] 08/09/2025 10:30 AM EST Office Visit [facility] MEDICINE [address] [place] [address] Rodri Lund MD [address] [place] [address] documented as of this encounter Visit Diagnoses Not on filedocumented in this encounter Care Teams Aircraft Landing Gear Inspector Relationship Specialty Start Date End Date NameRodri MD [address] [place] [address] PCP - General Family Medicine 09/24/15 Ana Pavon, NoelD [address] [place] [address] [phone] Pharmacist Internal Medicine 04/28/23 [facility] 09/01/24 documented as of this encounter
--- OUTSIDE RECORDS SUMMARY | 2025-06-11 14:22 | XMS_ITS | Clinical Summary ---
Author Organization [facility] Address [address] [address] Phone Care Team Providers Care Treatment Supervisor Name Role Phone Name, Rodri IWNN Primary Care Provider [phone] Allergies Active Allergy Reactions Criticality Noted Date [...] Office Visit [facility] P.. [address] [address] Byron Rodas MD [address] [address] Health Maintenance Due Date Last Done Comments Diabetes: Ophthalmology Exam 10/26/2022 Diabetes: Pedal Pulse Checked 10/26/2022 Diabetes: Sensory Foot Exam 10/26/2022 Diabetes: Visual Foot Exam 10/26/2022 Influenza Vaccine (#1) 2025 4, 06/16/2022, 06/24/2021, Additional history exists Diabetes: Hemoglobin A1C 07/20/202504/19/ 025, 11/06/2024, 07/12/2024, Additional history exists Hepatitis B Vaccine Aged Out 01/24/2015, 10/18/2014, 07/20/2014 No longer eligible based on patient's age to complete this topic Pneumococcal Vaccine: 50+ Years Completed 11/16/2019, 05/01/2015, 12/07/2006 Insurance [facility] ([id number]) [facility] ([id number]) Care Teams Treatment Supervisor Relationship Specialty Start Date End Date Name, MD Rodri [address] [place] [address] [phone] PCP - General Internal Medicine 06/25/21
--- OUTSIDE RECORDS SUMMARY | 2025-06-11 14:22 | XMS_ITS | Encounter Summary ---
Author Organization [employer] Address 75 [facility] 7t [place] [address] Care Team Providers Care Car Record Clerk Name Role Phone Name, Rodri WINN Primary Care Provider [phone] Ana Pavon PharmD Unavailable [phone] Reason for Visit * Reason Comments Med Refill Encounter Details Date Type Department Care Team (Late st Contact Info) Description 11/19/2023 Refill [facility] MEDICINE 230 [place], [place] [phone] Name, MD Rodri 230 [place] [address] Social History Tobacco Use Types Packs/Day Years [...] Description 07/18/2025 10:30 AM EST Medication Management [address] [address] Ana Pavon, PharmD [address] [place] [address] 08/09/2025 10:30 AM EST Office Visit [address] [address] Name, MD Rodri [address] [place] [address] documented as of this encounter Goals Goal [...] documented as of this encounter Care Teams Car Record Clerk Relationship Specialty Start Date End Date Name, MD Rodri [address] [place] [address] PCP - General Family Medicine 09/24/15 Ana Pavon, NoelD [address] [place] [address] [phone] Pharmacist Internal Medicine 04/28/23 [facility] 09/01/24 documented as of this encounter
--- OUTSIDE RECORDS SUMMARY | 2025-06-11 14:22 | XMS_ITS | Encounter Summary ---
Author Organization [employer] Address 75 [facility] 7t [place] [address] Care Team Providers Care Md Ophthalmologist Name Role Phone Name, Rodri WINN Primary Care Provider [phone] Ana Pavon PharmD Unavailable [phone] Encounter Details Date Type Department Care Team (Latest Contact Info) Description 02/25/2021 Abstract [facility] CONVERSIONS Dental, Provider, [...] Description 07/18/2025 10:30 AM EST Medication Management [facility] MEDICINE [address] [place] [address] Ana Pavon, PharmD 230 [place] [address] 08/09/2025 10:30 AM EST Office Visit [facility] MEDICINE [address] [place] [address] Rodri Lund MD [address] [place] [address] documented as of this encounter Visit Diagnoses Not on filedocumented in this encounter Care Teams Md Ophthalmologist Relationship Specialty Start Date End Date NameRodri MD [address] [place] [address] PCP - General Family Medicine 09/24/15 Ana Pavon, NoelD [address] [place] [address] [phone] Pharmacist Internal Medicine 04/28/23 [facility] 09/01/24 documented as of this encounter
--- OUTSIDE RECORDS SUMMARY | 2025-06-11 14:22 | XMS_ITS | Encounter Summary ---
Author Organization [employer] Address 75 [facility] 7t [place] [address] Care Team Providers Care Regional Telecommunications Specialist Name Role Phone Name, Rodri WINN Primary Care Provider Ana Pavon PharmD Unavailable [phone] Reason for Visit * Reason Comments Med Refill Encounter Details Date Type Department Care Team ([facility] st Contact Info) Description 06/08/2025 Refill [facility] MEDICINE 230 [place], [place] [phone] Name, MD Rodri 230 [place] [address] Social History Tobacco Use Types Packs/Day Years [...] Description 07/18/2025 10:30 AM EST Medication Management [address] [address] Ana Pavon, PharmD [address] [place] [address] 08/09/2025 10:30 AM EST Office Visit [address] [address] Name, MD Rodri [address] [place] [address] documented as of this encounter Goals Goal [...] documented as of this encounter Care Teams Regional Telecommunications Specialist Relationship Specialty Start Date End Date Name, MD Rodri [address] [place] [address] PCP - General Family Medicine 09/24/15 Ana Pavon PharmD 230 [place] [address] Pharmacist Internal Medicine 04/28/23 [facility] 09/01/24 documented as of this encounter
--- OUTSIDE RECORDS SUMMARY | 2025-06-11 14:22 | XMS_ITS | Encounter Summary ---
Author Organization [facility] Address 75 [facility] 7t [place] [address] Care Team Providers Care Honeycomb Decapper Name Role Phone Name, Rodri WINN Primary Care Provider [phone] Ana Pavon PharmD Unavailable [phone] Encounter Details Date Type Department Care Team (Latest Contact Info) Description 08/23/2019 Abstract [facility] CONVERSIONS Dental, Provider, DDS Social History Tobacco [...] Description 07/18/2025 10:30 AM EST Medication Management [facility] MEDICINE [address] [place] [address] Ana Pavon, PharmD 230 [place] [address] 08/09/2025 10:30 AM EST Office Visit [facility] MEDICINE [address] [place] [address] Rodri Lund MD [address] [place] [address] documented as of this encounter Visit Diagnoses Not on filedocumented in this encounter Care Teams Honeycomb Decapper Relationship Specialty Start Date End Date NameRodri MD [address] [place] [address] PCP - General Family Medicine 09/24/15 Ana Pavon, NoelD [address] [place] [address] [place] [phone] Pharmacist Internal Medicine 04/28/23 [facility] 09/01/24 documented as of this encounter
--- OUTSIDE RECORDS SUMMARY | 2025-06-11 14:22 | XMS_ITS | Encounter Summary ---
Author Organization [employer] Address 75 [facility] 7t [place] [address] Care Team Providers Care Sensory Scientist Name Role Phone Name, Rodri WINN Primary Care Provider [phone] Ana Pavon PharmD Unavailable [phone] Encounter Details Date Type Department Care Team (Latest Contact Info) Description 06/11/2025 Travel Social History Tobacco Use Types Packs/Day [...] Description 07/18/2025 10:30 AM EST Medication Management [address] [address] Ana Pavon PharmD [address] [place] [address] 08/09/2025 10:30 AM EST Office Visit [address] [phone] Name, MD Rodri [address] [place] [address] documented as of this encounter Goals Goal [...] documented as of this encounter Care Teams Sensory Scientist Relationship Specialty Start Date End Date Name, MD Rodri [address] [place] [address] [phone] PCP - General Family Medicine 09/24/15 Ana Pavon, PharmD [address] [place] [address] [phone] Pharmacist Internal Medicine 04/28/23 [facility] 09/[facility]/24 documented as of this encounter
--- OUTSIDE RECORDS SUMMARY | 2025-06-11 14:22 | XMS_ITS | Encounter Summary ---
Author Organization [employer] Address 75 [facility] 7t [place] [address] Care Team Providers Care Pruner Name Role Phone Name, Rodri WINN Primary Care Provider [phone] Ana Pavon PharmD Unavailable [phone] Reason for Visit * Reason Comments Med Refill Encounter Details Date Type Department Care Team (Late Contact Info) Description 03/24/2023 Refill [facility] MEDICINE [address] [place] [address] [phone] Name, MD Rodri [address] [place] [address] Social History Tobacco Use Types Packs/Day Years [...] Description 07/18/2025 10:30 AM EST Medication Management [address] [address] Ana Pavon PharmD [facility] [place] [address] 08/09/2025 10:30 AM EST Office Visit [address] [address] Name, [place] [address] documented as of this encounter Visit Diagnoses Not on filedocumented in this encounter Care Teams Pruner Relationship Specialty Start Date End Date Name, [place] [address] PCP - General Family Medicine 09/24/15 Ana Pavon PharmD [address] [place] [address] Pharmacist Internal Medicine 04/28/23 [facility] 09/01/24 documented as of this encounter
--- OUTSIDE RECORDS SUMMARY | 2025-06-11 14:22 | XMS_ITS | Encounter Summary ---
Author Organization [employer] Address 75 [facility] 7t [place] [address] Care Team Providers Care As400 Analyst Name Role Phone Name, Rodri WINN Primary Care Provider [phone] Ana Pavon PharmD Unavailable [phone] Reason for Visit * Reason Comments Med Refill Encounter Details Date Type Department Care Team (Late st Contact Info) Description 04/07/2023 Refill [facility] MEDICINE 230 [place], [place] [phone] Name, MD Rodri 230 [place] [address] Social History Tobacco Use Types Packs/Day Years [...] Description 07/18/2025 10:30 AM EST Medication Management [address] [address] Ana Pavon PharmD [address] [place] [address] 08/09/2025 10:30 AM EST Office Visit [facility] MEDICINE [address] [place] [address] Name, MD Rodri [address] [place] [address] documented as of this encounter Visit Diagnoses Not on filedocumented in this encounter Care Teams As400 Analyst Relationship Specialty Start Date End Date Name, MD Rodri [address] [place] [address] PCP - General Family Medicine 09/24/15 Ana Pavon PharmD [address] [place] [address] Pharmacist Internal Medicine 04/28/23 [facility] 09/01/24 documented as of this encounter
--- OUTSIDE RECORDS SUMMARY | 2025-06-11 14:22 | XMS_ITS | Encounter Summary ---
Author Organization [employer] Address 75 [facility] 7t [place] [address] Care Team Providers Care Wildlife Control Agent Name Role Phone Name, Rodri WINN Primary Care Provider [phone] Ana Pavon PharmD Unavailable [phone] Reason for Visit * Reason Comments Med Refill Encounter Details Date Type Department Care Team ([facility] st Contact Info) Description 06/23/2024 Refill [facility] MEDICINE 230 [place], [place] [phone] Name, MD Rodri 230 [place] [address] Social History Tobacco Use Types Packs/Day Years [...] Description 07/18/2025 10:30 AM EST Medication Management [address] [address] Ana Pavon, PharmD [address] [place] [address] 08/09/2025 10:30 AM EST Office Visit [address] [address] Name, MD Rodri [address] [place] [address] documented as of this encounter Goals Goal [...] documented as of this encounter Care Teams Wildlife Control Agent Relationship Specialty Start Date End Date Name, MD Rodri [address] [place] [address] [phone] PCP - General Family Medicine 09/24/15 Ana Pavon, Mary [address] [place] [address] [place], [place] [phone] Pharmacist Internal Medicine 04/28/23 [facility] 09/01/24 documented as of this encounter
--- OUTSIDE RECORDS SUMMARY | 2025-06-11 14:22 | XMS_ITS | Encounter Summary ---
Author Organization [employer] Address [address] [place] [address] 7t [place] [address] Care Team Providers Care Quality Assurance Intern Name Role Phone Name, Rodri WINN Primary Care Provider [phone] PuAna villegas PharmD Unavailable [phone] Reason for Visit * Reason Comments Med Refill Encounter Details Date Type Department Care Team (Late Contact Info) Description 04/13/2023 Refill [facility] MEDICINE [address] [place] [address] [phone] Name, MD Rodri [address] [place] [address] [phone] Social History Tobacco Use Types Packs/Day Years [...] Description 07/18/2025 10:30 AM EST Medication Management [facility] MEDICINE 230 [place], [place] [phone] Puia, Ana, PharmD 230 [place], [place] [phone] 08/09/2025 10:30 AM EST Office Visit [facility] MEDICINE 230 [place] [address] Name, MD Rodri 230 [place] [address] documented as of this encounter Visit Diagnoses Not on filedocumented in this encounter Care Teams Quality Assurance Intern Relationship Specialty Start Date End Date Name, MD Rodri [address] [place] [address] PCP - General Family Medicine 09/24/15 Ana Pavon, Mary [address] [place] [address] Pharmacist Internal Medicine 04/28/23 [facility] 09/01/24 documented as of this encounter
--- OUTSIDE RECORDS SUMMARY | 2025-06-11 14:22 | XMS_ITS | Encounter Summary ---
Author Organization [employer] Address 75 [facility] 7t [place] [address] Care Team Providers Care Bagging Machine Operator Name Role Phone Name, Rodri WINN Primary Care Provider [phone] Ana Pavon PharmD Unavailable [phone] Encounter Details Date Type Department Care Team ([facility] st Contact Info) Description 06/11/2025 Telephone [facility] 230 [place], [place] [phone] Kandy Villatoro DO 230 [place] [address] Social History Tobacco Use Types Packs/Day Years [...] encounter Miscellaneous Notes * Telephone Encounter - Charlotte Zazueta RN - 06/11/2025 1:36 PM EDT TC placed to pt. At [phone], no answer, VM box full. TC placed to [phone], reached a woman not with pt. At the time and no HIPAA in chart. Will postpone message to reattempt tomorrow if no c/b * Telephone Encounter - Kandy Villatoro DO - 06/11/2025 1:17 PM EDT Please advise pt that his xrays showed stable post op changes and arthritis. Recommend that he trial meds as discussed at visit and consider PT if no improvement. Thank you. documented in this encounter Plan of Treatment Upcoming Encounters Date Type Department Care Team (Late st Contact Info) Description 07/18/2025 10:30 AM EST Medication Management [facility] [address] [place] [address] Ana Pavon, PharmD 230 [place] [address] 08/09/2025 10:30 AM EST Office Visit [facility] [address] [place] [address] Name, MD Rodri 230 [place] [address] documented as of this encounter Goals Goal [...] documented as of this encounter Care Teams Bagging Machine Operator Relationship Specialty Start Date End Date Name, MD Rodri [address] [place] [address] PCP - General Family Medicine 09/24/15 Ana Pavon, PharmD [address] [place] [address] Pharmacist Internal Medicine 04/28/23 [facility] 09/01/24 documented as of this encounter
== END 2025-06-11 11:50 | disposition home or self-care (01) ==
LOC: HO.HHCX 11:49
PROVIDERS: Visit Provider Family Medicine
DX: M54.50 Low back pain, unspecified (principal)
CPT/HCPCS: 72100

== ENCOUNTER → 2025-06-11 11:49 | Outpatient (BNV) | payer OTHER, SELFPAY | PROVIDERS: Visit Provider Radiology Diagnostic Ultrasound | DX: M54.50 Low back pain, unspecified (principal); Z98.1 Arthrodesis status | CPT/HCPCS: 72100 ==

== ENCOUNTER 2025-07-05 10:43 | Outpatient (REF) | payer OTHER, SELFPAY ==
--- OUTSIDE RECORDS SUMMARY | 2025-07-05 13:12 | XMS_ITS | Encounter Summary ---
Author Organization [employer] Address 75 [facility] 7t [place] [address] Care Team Providers Care Liquefied Petroleum Gasfitter Name Role Phone Name, Rodri WINN Primary Care Provider [phone] Ana Pavon PharmD Unavailable [phone] Encounter Details Date Type Department Care Team (Latest Contact Info) Description 06/25/2022 Abstract [facility] CONVERSIONS Dental, Provider, DDS Social History [...] Care Team (Late st Contact Info) Description 07/12/2025 10:00 AM EST Clinical Support [facility] DIABETES/NTRN [address] [place] [address] Nguyen Ragsdale, ALDO 230 [place] [address] 07/18/2025 10:30 AM EST Medication Management [address] [address] Ana Pavon, PharmD 230 [place] [address] 08/09/2025 10:30 AM EST Office Visit [address] [address] Name, MD Rodri [address] [place] [address] documented as of this encounter Visit Diagnoses Not on filedocumented in this encounter Care Teams Liquefied Petroleum Gasfitter Relationship Specialty Start Date End Date Name, MD Rodri 230 [place], [place] [phone] PCP - General Family Medicine 09/24/15 Ana Pavon PharmD 230 [place] [address] Pharmacist Internal Medicine 04/28/23 [facility] 09/01/24 documented as of this encounter
--- OUTSIDE RECORDS SUMMARY | 2025-07-05 13:12 | XMS_ITS | Encounter Summary ---
Author Organization [employer] Address 75 [facility] 7t [place] [address] Care Team Providers Care Machine Ii Engraver Name Role Phone Name, Rodri WINN Primary Care Provider [phone] Ana Pavon PharmD Unavailable [phone] Reason for Visit * Reason Comments Med Refill Encounter Details Date Type Department Care Team ([facility] st Contact Info) Description 06/23/2024 Refill [facility] MEDICINE 230 [place], [place] [phone] Name, MD Rodri 230 [place] [address] Social History Tobacco Use Types Packs/Day Years [...] Description 07/12/2025 10:00 AM EST Clinical Support [facility] DIABETES/NTRN [address] [place] [address] [place] [address] 07/18/2025 10:30 AM EST Medication Management [address] [address] Puia, Ana, PharmD [address] [place] [address] 08/09/2025 10:30 AM EST Office Visit [address] [address] Name, MD Rodri [address] [place] [address] documented as of this encounter Goals Goal [...] documented as of this encounter Care Teams Machine Ii Engraver Relationship Specialty Start Date End Date Name, MD Rodri 230 [place] [address] PCP - General Family Medicine 09/24/15 Ana Pavon PharmD 230 [place] [address] Pharmacist Internal Medicine 04/28/23 [facility] Care 09/01/24 documented as of this encounter
--- OUTSIDE RECORDS SUMMARY | 2025-07-05 13:12 | XMS_ITS | Encounter Summary ---
Author Organization [employer] Address 75 [facility] 7t [place] [address] Care Team Providers Care Roll Wrapper Name Role Phone Name, Rodri WINN Primary Care Provider [phone] Ana Pavon PharmD Unavailable [phone] Reason for Visit * Reason Onset Date Comments Appointment Request 03/06/2025 Encounter Details Date Type Department Care Team ([facility] Contact Info) Description 03/06/2025 Telephone [facility] MEDICINE 230 [place], [place] [phone] Name, MD Rodri 230 [place] [address] Appointment Request Social History Tobacco Use Types [...] Description 07/12/2025 10:00 AM EST Clinical Support [facility] DIABETES/NTRN 505 [place] [address] [place] [address] 07/18/2025 10:30 AM EST Medication Management [address] [address] Ana Pavon, PharmD [address] [place] [address] 08/09/2025 10:30 AM EST Office Visit [address] [phone] Name, MD Rodri [address] [place] [address] documented as of this encounter Goals Goal Patient Goal Type Associated Problems Recent Progress Patient-Stated? Author Hemoglobin A1c < 7.5 Result Component 6.6(08/14/202 5 1:23 PM EDT) No Ana Pavon [...] documented as of this encounter Care Teams Roll Wrapper Relationship Specialty Start Date End Date Name, MD Rodri 230 [place] [address] PCP - General Family Medicine 09/24/15 Ana Pavon PharmD 230 [place] [address] Pharmacist Internal Medicine 04/28/23 [facility] Care 09/01/24 documented as of this encounter
--- OUTSIDE RECORDS SUMMARY | 2025-07-05 13:12 | XMS_ITS | Encounter Summary ---
Author Organization [employer] Address 75 [facility] 7t [place] [address] Care Team Providers Care Servicing Manager Name Role Phone Name, Rodri WINN Primary Care Provider [phone] Ana Pavon PharmD Unavailable [phone] Encounter Details Date Type Department Care Team (Latest Contact Info) Description 08/23/2019 Abstract [facility] CONVERSIONS Dental, Provider, DDS Social History [...] Description 07/12/2025 10:00 AM EST Clinical Support [facility] DIABETES/NTRN 505 [place] [address] Nguyen Ragsdale, ALDO 230 [place] [address] 07/18/2025 10:30 AM EST Medication Management [address] [address] Ana Pavon, PharmD 230 [place] [address] 08/09/2025 10:30 AM EST Office Visit [address] [address] Name, MD Rodri [address] [place] [address] documented as of this encounter Visit Diagnoses Not on filedocumented in this encounter Care Teams Servicing Manager Relationship Specialty Start Date End Date Name, MD Rodri 230 [place], [place] [phone] PCP - General Family Medicine 09/24/15 Ana Pavon PharmD 230 [place] [address] Pharmacist Internal Medicine 04/28/23 [facility] 09/01/24 documented as of this encounter
--- OUTSIDE RECORDS SUMMARY | 2025-07-05 13:12 | XMS_ITS | Clinical Summary ---
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 [address] [address] Byron Rodas MD [address] [address] Health Maintenance Due Date Last [...] 50+ Years Completed 11/16/2019, 05/01/2015, 12/07/2006 Insurance [facility] ([id number]) [facility] ([id number]) Care Teams Tube Operator Relationship Specialty Start Date End Date Name, MD Rodri [address] [place] [address] [phone] PCP - General Internal Medicine 06/25/21
--- OUTSIDE RECORDS SUMMARY | 2025-07-05 13:12 | XMS_ITS | Encounter Summary ---
Author Organization [employer] Address 75 [facility] 7t [place] [address] Care Team Providers Care Gas Torch Brazier Name Role Phone Name, Rodri WINN Primary Care Provider [phone] Ana Pavon PharmD Unavailable [phone] Reason for Visit * Reason Comments Med Refill Encounter Details Date Type Department Care Team (Late st Contact Info) Description 11/19/2023 Refill [facility] [address] [place], [place] [phone] Name, MD Rodri [address] [place] [address] Social History Tobacco Use Types Packs/Day Years [...] Description 07/12/2025 10:00 AM EST Clinical Support [facility] 505 [place] [address] [place] [address] 07/18/2025 10:30 AM EST Medication Management [address] [address] Puia, Ana, PharmD [address] [place] [address] 08/09/2025 10:30 AM EST Office Visit [address] [address] Name, MD Rodri [address] [place] [address] documented as of this encounter Goals Goal [...] documented as of this encounter Care Teams Gas Torch Brazier Relationship Specialty Start Date End Date Name, MD Rodri [address] [place] [address] PCP - General Family Medicine 09/24/15 Ana Pavon PharmD [address] [place] [address] Pharmacist Internal Medicine 04/28/23 [facility] Care 09/01/24 documented as of this encounter
--- OUTSIDE RECORDS SUMMARY | 2025-07-05 13:12 | XMS_ITS | Clinical Summary ---
Author Organization [employer] Address 75 [facility] 7t [place] [address] Care Team Providers Care Truck Safety Inspector Name Role Phone Name, Rodri WINN Primary Care Provider [phone] Ana Pavon PharmD Unavailable [phone] Allergies No known active allergies Medications [...] complication, with long-term current use of insulin ([facility]) Inject 5 mg under the skin [...] complication, without long-term current use of insulin ([facility]),High cholesterol Take 1 tablet (20 mg) by mouth Once daily. 90 tablet 11/07/19 25 Active lisinopril 40 MG tabletIndicatio ns:Type 2 diabetes mellitus with other specified complication, without long-term current use of insulin ([facility]),Essential hypertension Take 1 tablet (40 mg) by mouth Once per day. 30 tablet 11/07/19 25 Active Multiple Vitamin (Multivitamin) tablet TAKE ONE TABLET EVERY MORNING 90 tablet 3 12/06/19 25 Active clotrimazole (Lotrimin) 1 % cream apply to the affected area(s) twice daily 11/07/19 25 Active insulin pen needle (TechLite Pen Jay Em) 32G x 4 mm miscIndications :Poorly controlled diabetes mellitus (HCC) USE ONE DAILY TO inject insulin 100 each 02/15/20 25 Active Continuous Glucose Wrecking Mechanic (FreeStyle Grace 3 [place]) deviceIndicatio ns:Type 2 diabetes mellitus with other specified complication, with long-term current use of insulin ([facility]) 1 each Once per day. Use as directed for CGM 1 each 04/19/20 25 Active Continuous Glucose Sensor (FreeStyle Grace 3 Plus Sensor) miscIndications :Type 2 diabetes mellitus with other specified complication, with long-term current use of insulin ([facility]) Apply 1 every 15 days as directed for CGM 2 each 04/19/20 25 Active glucose blood (FreeStyle Precision Cosme Test) test stripIndication s:Type 2 diabetes mellitus with other specified complication, with long-term current use of insulin ([facility]) Use to test blood sugar up to 3 times daily, as directed 100 each 04/19/20 25 Active insulin degludec (Tresiba FlexTouch) 100 UNIT/ML injectionIndica tions:Type 2 diabetes mellitus with other specified complication, without long-term current use of insulin ([facility]) Inject 16 Units under the skin in the morning. 15 mL 04/19/20 25 Active Ferrous Sulfate (iron) 325 (65 Fe) MG tablet TAKE ONE TABLET EVERY MORNING 90 tablet 1 06/08/20 25 Active baclofen (Lioresal) 10 MG tablet Take [...] 60 tablet 1 06/11/20 25 2025 Active busPIRone (Buspar) 5 MG tablet TAKE ONE TABLET THREE TIMES DAILY IN THE MORNING, AT NOON, AND AT BEDTIME 90 tablet 06/26/20 Active Diclofenac Sodium 1 % gelIndications: Articular gout APPLY 2 GRAMS TOPICALLY FOUR TIMES A DAY (BULK) 100 g 5 11/23/19 24 2024 Discontinued Ferrous Sulfate (iron) 325 (65 Fe) MG tablet TAKE ONE TABLET EVERY MORNING 90 tablet 1 12/06/19 25 2024 Discontinued busPIRone (Buspar) 5 MG tablet TAKE ONE TABLET THREE TIMES DAILY IN THE MORNING, AT NOON, AND AT BEDTIME 90 tablet 05/11/20 25 2024 Discontinued methylPREDNISol one (Medrol Dospak) 4 MG tablets Follow schedule on package instructions 21 tablet 06/11/20 25 2024 traMADol (Ultram) 50 MG tabletIndicatio ns:Acute bilateral low back pain without sciatica Take 1 tablet (50 mg) by mouth every 8 (eight) hours if needed for severe pain for up to 5 days. 15 tablet 06/11/20 25 2024 Active Problems Problem Noted Date Diagnosed [...] acquired 07/09/2021 Stage 3 chronic kidney disease (CMS/HCC) 021 Essential hypertension 10/15/2015 Type 2 diabetes mellitus 10/15/2015 Hyperlipidemia 01/24/2013 Anxiety state 03/17/2012 Depressive disorder 03/17/2012 Resolved Problems Problem Noted Date Diagnosed Date Resolved Date Prostatism 05/19/2016 10/15/2023 Encounters Date Type Department Care Team Description 06/26/2025 Refill [facility] MED & PEDS [address] [place] [address] Rodri Lund MD 06/20/2025 Travel 06/11/2025 11:20 AM EDT Office Visit [facility] [address] [place] [address] Kandy Villatoro DO Acute bilateral low back pain without sciatica (Primary Dx) 06/11/2025 Telephone [facility] [address] [place] [address] Kandy Villatoro DO 06/11/2025 Travel 06/08/2025 Refill [facility] MEDICINE [address] [place] [address] Rodri Lund MD 06/05/2025 Orders Only GENERIC EXTERNAL DATA DEPARTMENT Provider, Generic External Data 05/17/[address] [address] Rodri Lund MD 05/15/2025 11:15 AM EDT Office Visit [facility] MEDICINE [address] [place] [address] Rodri Lund MD Type 2 diabetes mellitus with other specified complication, without long-term current use of insulin ([facility]) (Primary Dx) 05/15/2025 Travel 05/11/2025 Telephone [facility] MEDICINE [address] [place] [address] Rodri Lund MD CHARTPREP 05/11/2025 Refill [facility] PEDS [address] [place] [address] Rodri Lund MD 05/09/2025 11:00 AM EDT Clinical Support [facility] [place] [address] Jazlyn Troy, IVETTE Type 2 diabetes mellitus with other specified complication, with long-term current use of insulin (CMS/HCC) 05/09/2025 Telephone [facility] [place] [address] Rodri Lund MD 05/09/2025 Travel 05/08/2025 Orders Only GENERIC EXTERNAL DATA DEPARTMENT Provider, Generic External Data 05/03/2025 2:30 PM EDT Clinical Support [facility] DIABETES/NTRN [address] [facility] [place] [address] Type 2 diabetes mellitus with other specified complication, with long-term current use of insulin (CMS/[facility]) (Primary Dx) 05/03/2025 Travel 05/01/2025 Telephone [facility] [place] [address] Ana Pavon, PharmD 04/26/2025 Telephone [facility] [place] [address] Rodri Lund MD CGM Supplies; Appointment 04/19/2025 Telephone [facility] [place] [address] Ana Pavon, PharmD Prior Authorization (Freestyle Grace 3 CGM) 04/19/2025 Telephone [address] [place] [address] Ana Pavon, PharmD 04/19/2025 Travel 04/16/2025 Refill [facility] MED & PEDS [address] [facility] [place] [address] Rodri Lund MD 04/05/2025 2:30 PM EDT Clinical Support [facility] DIABETES/NTRN [address] [facility] [place] [address] Type 2 diabetes mellitus with other specified complication, with long-term current use of insulin (CMS/HCC) (Primary Dx) 04/05/2025 Travel from Last 3 Months Immunizations Immunization Administration [...] Description 07/12/2025 10:00 AM EST Clinical Support [facility] DIABETES/NTRN [address] [place] [address] [place] [address] 07/18/2025 10:30 AM EST Medication Management [address] [address] Ana Pavon, PharmD [address] [place] [address] 08/09/2025 10:30 AM EST Office Visit [facility] [address] [place] [address] Name, MD Rodri [address] [place] [address] Health Maintenance Due Date Last Done Comments [...] 07/06/2022, Additional history exists Diabetes: Hemoglobin A1C 10/20/202504/19/2 025, 11/06/2024, 07/12/2024, Additional history exists Alcohol/Substance [...] 6.6( 1:23 PM EDT) No Ana Pavon, PharmD [...] complication, without long-term current use of insulin ([facility]) URIC ACID Routine 05/08/2025 1:50 PM [...] complication, with long-term current use of insulin ([facility]) HM DIABETES EYE EXAM Routine 02/02/2025 ALBUMIN, RANDOM URINE W/CREATININE Routine 12/22/2024 12:17 PM EDT Type 2 diabetes mellitus with other specified complication, with long-term current use of insulin ([facility]) LIPID PANEL, STANDARD Routine 06/28/2024 9:45 AM EDT Type 2 diabetes mellitus with other specified complication, with long-term current use of insulin ([facility]) Full PROPHYLAXIS - ADULT Routine 01/11/2024 [...] PM EDT Narrative 06/11/2025 12:12 [place] [address] XRay Report Signed Patient: Francisco Lorenzo MR#: [id number] : 1945 Acct:[id number] Age/Sex: 79 / M ADM Date: 06/11/25 Loc: HO.HHCX Attending Dr: Kandy Villatoro DO Ordering Physician: Kandy Villatoro DO Date of Service: 06/11/25 Procedure(s): XR lumbar spine 2-3V Accession Number(s): [id number] cc: Kandy Villatoro DO Reason for Exam: [...] 06/11/25 1209 DD/ 1200 TD/TT: 06/11/25 1203 Evening Sitter: RENEA Procedure Note Donotuseinterpreter, Image - 06/11/[address] [address] XRay Report Signed Patient: Francisco Lorenzo DMR#: [id number] : 1945cct:[id number] Age/Sex: 79 / MADM Date: 06/11/25 Loc: HO.HHCX Attending Dr: Kandy Villatoro DO Ordering Physician: Kandy Villatoro DO Date of Service: 06/11/25 Procedure(s): XR lumbar spine 2-3V Accession Number(s): [id number] cc: Kandy Villatoro DO Reason for Exam: [...] 06/11/25 1209 DD/ 1200 TD/TT: 06/11/25 1203 Evening Sitter: RENEA us Kandy Villatoro DO IMG XR PROCEDURES Final Resu lt * ALT (06/05/2025 12:26 PM EDT) Only the most recent of2 resultswithin the time period is included. Alanine Aminotransferase 32 0 - 40 U/L [facility] 06/05/2025 12:2 6 PM EDT 06/05/2025 1:09 PM EDT us Generic External Data Provider LAB BLOOD ORDERAB LES Final Result Performing Organization Address [facility] Co de Phone Number [facility] [address] [place] [phone] * AST (06/05/2025 12:26 PM EDT) Only the most recent of2 resultswithin the time period is included. Aspartate Amino Transferase 37 5 - 37 U/L [facility] 06/05/2025 12:2 6 PM EDT 06/05/2025 1:09 PM EDT us Generic External Data Provider LAB BLOOD ORDERAB LES Final Result Performing Organization Address [facility]/ZIP Co de Phone Number [facility] [address] [place] [phone] * POCT Glucose (05/15/2025 11:15 AM EDT) Glucose Blood, POC 115 60 - 200 mg/dL QC Media Lot # [id number] Lot# Expiration Date Blood Capillary blood specimen / Unknown 05/15/2025 11:15 AM EDT Rodri Kevon WINN POINT OF CARE TEST ENTER/EDIT OR DERABLES Final Result * (ABNORMAL) Creatinine, Serum (05/08/2025 1:50 PM EDT) Pathologist [facility] Creatinine, Serum 1.44(H) 0.5 - 1.4 mg/dL [facility] Estimated Glomerular Filt Rate 47 [facility] Comment:Chronic Kidney Disea se: Estimated GFR < 60 mL/min/[id number] Kidney Disease: Estimated GFR < 15 mL/min/1.73m2 05/08/2025 1:50 PM EDT 05/08/2025 5:42 PM EDT Generic External Data Provider LAB BLOOD ORDERAB LES Final Result Performing Organization Address City/[facility]/ZIP Co de Phone Number [facility] [address] [place] [phone] * Uric acid (05/08/2025 1:50 PM EDT) Pathologist [facility] Uric Acid 3.9 3.4 - 7.0 mg/dL [facility] 05/08/2025 1:50 PM EDT 05/08/2025 5:42 PM EDT Generic External Data Provider LAB BLOOD ORDERAB LES Final Result Performing Organization Address [facility]/ZIP Co de Phone Number [facility] [address] [place] [phone] * Sodium (05/08/2025 1:50 PM EDT) Sodium 141 135 - 145 mmol/L [facility] 05/08/2025 1:50 PM EDT 05/08/2025 5:42 PM EDT Generic External Data Provider LAB BLOOD ORDERAB LES Final Result Performing Organization Address [facility] de Phone Number [facility] [address] [place] [phone] * Potassium (05/08/2025 1:50 PM EDT) Potassium 4.6 3.3 - 5.1 mmol/L [facility] 05/08/2025 1:50 PM EDT 05/08/2025 5:42 PM EDT Generic External Data Provider LAB BLOOD ORDERAB LES Final Result Performing Organization Address [facility] Phone Number [facility] [address] [place] [phone] * Phosphate (As Phosphorus) (05/08/2025 1:50 PM EDT) Phosphorus 3.0 2.7 - 4.5 mg/dL [facility] 05/08/2025 1:50 PM EDT 05/08/2025 5:42 PM EDT Generic External Data Provider LAB BLOOD ORDERAB LES Final Result Performing Organization Address [facility] de Phone Number [facility] [address] [place] [phone] * Magnesium (05/08/2025 1:50 PM EDT) Magnesium 2.3 1.6 - 2.6 mg/dL [facility] 05/08/2025 1:50 PM EDT 05/08/2025 5:42 PM EDT Generic External Data Provider LAB BLOOD ORDERAB LES Final Result [facility] [address] [place] [phone] * Calcium (05/08/2025 1:50 PM EDT) Calcium 9.0 8.4 - 10.2 mg/dL [facility] 05/08/2025 1:50 PM EDT 05/08/2025 5:42 PM EDT Generic External Data Provider LAB BLOOD ORDERAB LES Final Result Performing Organization Address [facility]/ZIP Co de Phone Number [facility] [address] [place] [phone] * (ABNORMAL) POCT HGB A1C (04/19/2025 1:23 PM EDT) Pathologist [facility] Hemoglobin A1C 6.6(A) 4.0 - 5.7 % QC Media Lot # [id number] Blood 04/19/2025 1:23 PM EDT us Rodri Lund MD POINT OF CARE TEST ENTER/EDIT OR DERABLES Final Result * Hm Diabetes Eye Exam (02/02/2025) Pathologist [facility] Eye Exam Normal Normal 02/02/2025 us Rodri Lund MD HEALTH MAINTENANCE Final Result * (ABNORMAL) Albumin, Random Urine W/Creatinine (12/22/2024 12:17 PM EDT) Creatinine, Urine 166.04 mg/dL [facility] Microalbumin Urine 159.0 mg/L [facility] Microalbum Creatinine Ratio Ur 95.7(H) <30 ug/mg cr [facility] Comment:Albumin/Creatinine R atio Reference Ranges: Normal: < 30 ug/mg creatinine Microalbuminuria: 30 - 300 ug/mg creatinineClinical Albuminuria: > 300 ug/mg creatinine Urine (Urine, Random) 12/22/2024 12:17 PM EDT 12/22/2024 1:00 PM EDT us Rodri Lund MD LAB URINE ORDERABLES Final Resul t Performing Organization Address [facility] Co de Phone Number [facility] [address] [place] [phone] * (ABNORMAL) Lipid Panel, Standard (06/28/2024 9:45 AM EDT) Triglycerides 161(H) <150 mg/dL [facility] Comment:Desirable Triglyceri de: less than 150 mg/dLBorderline High Triglyceride 150-199 mg/dLHigh Triglyceride: 200-499 mg/dLVery High Triglyceride: greater than or equal to 5OO mg/dL Cholesterol 177 <200 mg/dL [facility] Comment:Desirable Cholestero l: less than 200 mg/dLBorderline High Cholesterol: 200-239 mg/dLHigh Cholesterol: greater than 239 mg/dL LDL Cholesterol Calculated 107(H) <100 mg/dL [facility] Comment:Desirable LDL: less than 100 mg/dLNear Optimal/Above Optimal LDL: 110- 129 mg/dLBorderline High LDL: 130-159 mg/dLHigh LDL: 160-189 mg/dLVery High LDL: greater than or equal to 190 mg/dL HDL Cholesterol 38(L) >40 mg/dL [facility] Comment:Desirable HDL: great er than 40 mg/dL Note: This HDL assay may give artificially low results in patients with liver disease. Blood Venous blood specimen / Unknown 06/28/2024 9:45 AM EDT 06/28/2024 11:12 AM EDT us Rodri Lund MD LAB BLOOD ORDERABLES Final Resul t Performing Organization Address [facility] Co de Phone Number [facility] [address] [place] [phone] * (ABNORMAL) Hm Colonoscopy (01/20/2023 1:46 [...] Provider HISTORICAL/NON ORDERABLE LABS Final Result [facility] Anywhere [address] from Last 3 Months or Most Recently Relevant to Health Maintenance Insurance [facility] CARE HOME OPTIONS (O D-SNP) LEONID FERNANDO [id number] * Guarantor: Francisco Grant Account Type Relation to Patient Date of Phone Billing Address Personal/Family Self [place], [place] * Guarantor: Francisco Grant Account Type Relation to Patient Date of Phone Billing Address Personal/Family Self [place], [place] Care Teams Truck Safety Inspector Relationship Specialty Start Date End Date Name, MD Rodri [address] [place] [address] PCP - General Family Medicine 09/24/15 Ana Pavon PharmD [address] [place] [address] Pharmacist Internal Medicine 04/28/23 [facility] 09/01/24
--- OUTSIDE RECORDS SUMMARY | 2025-07-05 13:12 | XMS_ITS | Encounter Summary ---
Author Organization [employer] Address 75 [facility] 7t [place] [address] Care Team Providers Care Senior Game Developer Name Role Phone Name, Rodri WINN Primary Care Provider [phone] Ana Pavon PharmD Unavailable [phone] Encounter Details Date Type Department Care Team (Latest Contact Info) Description 02/25/2021 Abstract [facility] CONVERSIONS Dental, Provider, DDS Social History [...] Description 07/12/2025 10:00 AM EST Clinical Support [facility] CHC DIABETES/NTRN [address] [place] [address] Nguyen Ragsdale, ALDO [address] [place] [address] 07/18/2025 10:30 AM EST Medication Management [address] [address] Ana Pavon, PharmD [address] [place] [address] 08/09/2025 10:30 AM EST Office Visit [address] [address] Name, MD Rodri [address] [place] [address] documented as of this encounter Visit Diagnoses Not on filedocumented in this encounter Care Teams Senior Game Developer Relationship Specialty Start Date End Date Name, MD Rodri [address] [place], [place] [phone] PCP - General Family Medicine 09/24/15 Ana Pavon PharmD [address] [place] [address] Pharmacist Internal Medicine 04/28/23 [facility] 09/01/24 documented as of this encounter
--- OUTSIDE RECORDS SUMMARY | 2025-07-05 13:12 | XMS_ITS | Encounter Summary ---
Author Organization [employer] Address [address] [facility] 7t [place] [address] Care Team Providers Care Chipper Operator Name Role Phone Name, Rodri WINN Primary Care Provider [phone] Ana Pavon PharmD Unavailable [phone] Reason for Visit * Reason Comments Med Refill Encounter Details Date Type Department Care Team ([facility] st Contact Info) Description 01/15/2025 Refill [facility] MEDICINE [address] [place], [place] [phone] Name, MD Rodri [address] [place] [address] Social History Tobacco Use Types Packs/Day Years [...] Description 07/12/2025 10:00 AM EST Clinical Support [facility] DIABETES/NTRN [address] [place] [address] [place] [address] 07/18/2025 10:30 AM EST Medication Management [address] [address] Puia, Ana, PharmD [address] [place] [address] 08/09/2025 10:30 AM EST Office Visit [address] [address] Name, MD Rodri [address] [place] [phone] documented as of this encounter Goals Goal Patient Goal Type Associated Problems Recent Progress Patient-Stated? Author Hemoglobin A1c < 7.5 Result Component 6.6( 1:23 PM EDT) No Puia, Aan, PharmD Record your blood sugar as directed [...] documented as of this encounter Care Teams Chipper Operator Relationship Specialty Start Date End Date Name, MD Rodri [address] [place] [address] PCP - General Family Medicine 09/24/15 Ana Pavon PharmD [address] [place] [address] Pharmacist Internal Medicine 04/28/23 [facility] Care 09/01/24 documented as of this encounter
--- OUTSIDE RECORDS SUMMARY | 2025-07-05 13:13 | XMS_ITS | Encounter Summary ---
Author Organization [employer] Address [address] [facility] 7t [place] [address] Care Team Providers Care Valve And Regulator Repairer Name Role Phone Name, Rodri WINN Primary Care Provider [phone] Ana Pavon PharmD Unavailable [phone] Reason for Visit * Reason Comments Med Refill Encounter Details Date Type Department Care Team (Late Contact Info) Description 04/13/2023 Refill [facility] MEDICINE [address] [place], [place] [phone] Name, MD Rodri [address] [place], [place] [phone] Social History Tobacco Use Types Packs/Day Years [...] Department Care Team (Late Contact Info) Description 07/12/2025 10:00 AM EST Clinical Support [facility] DIABETES/NTRN [address] [place], [place] [phone] [address] [place] [address] 07/18/2025 10:30 AM EST Medication Management [facility] MEDICINE [address] [place] [phone] [place] [address] 08/09/2025 10:30 AM EST Office Visit [address] [address] Name, [place] [address] documented as of this encounter Visit Diagnoses Not on filedocumented in this encounter Care Teams Valve And Regulator Repairer Relationship Specialty Start Date End Date Name, MD Rodri [address] [place] [phone] PCP - General Family Medicine 09/24/15 Ana Pavon PharmD [address] [place] [phone] Pharmacist Internal Medicine 04/28/23 [facility] 09/01/24 documented as of this encounter
--- OUTSIDE RECORDS SUMMARY | 2025-07-05 13:13 | XMS_ITS | Encounter Summary ---
Author Organization [employer] Address [address] [facility] 7t [place] [address] Care Team Providers Care Supervisor Webbing Name Role Phone Name, Rodri WINN Primary Care Provider [phone] Ana Pavon PharmD Unavailable Reason for Visit * Reason Comments Med Refill Encounter Details Date Type Department Care Team (Late st Contact Info) Description 04/07/2023 Refill [facility] MEDICINE [address] [place], [place] [phone] Name, MD Rodri [address] [place] [address] Social History Tobacco Use Types Packs/Day Years [...] 07/12/2025 10:00 AM EST Clinical Support [facility] DIABETES/NTRN [address] [place] [address] Nguyen Ragsdale, ALDO [address] [place] [phone] 07/18/2025 10:30 AM EST Medication Management [address] [address] Ana Pavon PharmD [address] [place] [address] 08/09/2025 10:30 AM EST Office Visit [address] [address] Name, MD Rodri [address] [place] [phone] documented as of this encounter Visit Diagnoses Not on filedocumented in this encounter Care Teams Supervisor Webbing Relationship Specialty Start Date End Date Rodri Lund MD [address] [place] [address] PCP - General Family Medicine 09/24/15 Ana Pavon, PharmD [address] [place] [address] Pharmacist Internal Medicine 04/28/23 [facility] 09/01/24 documented as of this encounter
--- OUTSIDE RECORDS SUMMARY | 2025-07-05 13:13 | XMS_ITS | Encounter Summary ---
Author Organization [employer] Address [address] [facility] 7t [place] [address] Care Team Providers Care Pulp And Paper Tester Name Role Phone Name, Rodri WINN Primary Care Provider [phone] Ana Pavon PharmD Unavailable [phone] Reason for Visit * Reason Comments Med Refill Encounter Details Date Type Department Care Team (Late Contact Info) Description 03/24/2023 Refill [facility] MEDICINE [address] [place], [place] [phone] Name, MD Rodri [address] [place] [address] Social History Tobacco Use Types Packs/Day Years [...] 07/12/2025 10:00 AM EST Clinical Support [facility] DIABETES/NTRN [address] [place] [address] [place] [address] 07/18/2025 10:30 AM EST Medication Management [address] [address] Aan Pavon PharmD [address] [place] [address] 08/09/2025 10:30 AM EST Office Visit [address] [address] Name, MD Rodri [address] [place] [address] documented as of this encounter Visit Diagnoses Not on filedocumented in this encounter Care Teams Pulp And Paper Tester Relationship Specialty Start Date End Date Name, MD Rodri [address] [place] [address] PCP - General Family Medicine 09/24/15 Ana Pavon PharmD [address] [place] [address] [phone] Pharmacist Internal Medicine 04/28/23 [facility] 09/01/24 documented as of this encounter
[2025-07-05 13:29] LABS: Hematocrit 40.7 % (42.0-52.0); Hemoglobin 13.5 g/dl (14.0-18.0); Mean Corpuscular HGB Conc 33.2 g/dl (31.0-36.0); Mean Corpuscular Hemoglobin 28.2 pg (27.0-33.0); Mean Corpuscular Volume 85.1 fL (80.0-98.0); NRBC Abs Auto 0.000 X10*3/uL (0.0-0.012); NRBC Pct Auto 0.0 /100WBC (0.0-0.2); Platelet Count 268 X10*3/uL (160-400); Red Blood Count 4.78 X10*6/uL (4.60-5.80); White Blood Count 8.4 X10*3/uL (4.8-10.8)
[2025-07-05 14:33] LABS: Prostate Specific Antigen 1.64 ng/mL (<0.05-4.0)
[2025-07-12 20:59] LABS: Testosterone, Free 19.6 pg/mL (30.0-135.0)
== END 2025-07-05 10:44 | disposition home or self-care (01) ==
LOC: HO.HHCL 10:43
PROVIDERS: PCP Internal Medicine Geriatric Medicine; Visit Provider Nurse Practitioner Family
DX: Z12.5 Encounter for screening for malignant neoplasm of prostate (principal); E29.1 Testicular hypofunction
CPT/HCPCS: 36415; 84153; 84402; 84403; 85027

== ENCOUNTER 2025-08-15 09:32 | Outpatient (AMB) | payer OTHER, SELFPAY ==
[2025-08-15 09:47] VITALS: BP 120/60; PULSE 70; O2SAT 97; BMI 28.0
--- NOTE | 2025-08-15 09:47 | MHC.OFFVIS ---
Vital Signs 08/15/25 09:47 Height 4 ft 11 in Weight 138 lb 10.732 oz BMI 28.0 BP 120/60 Blood Pressure Location Lt brachial Position Sitting Pulse 70 Pulse Source Pulse Oximeter Pulse Oximetry (%) 97 Oxygen Delivery Method Room Air Intake Visit Reasons: 3months Intake Note: Patient is here to follow up on gout today. Patient c/o left shoulder pain, progressively getting worse. 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 Grenadian speaking patient. Left shoulder pain for many months is getting worse. Activity causes increase pain. He is able to function during the day. Hurts when he sleeps on his left side. Uses tylenol two tablets qhs. No recent gout attack. [facility] Medical History Urinary incontinence Chronic constipation Diabetes COVID-19 vaccine series started History of depression Ambulates with cane Eosinophilia Leukocytosis Rheumatoid arthritis Normocytic anemia Surgical History Hx of umbilical hernia repair History of esophagogastroduodenoscopy (EGD) History of cataract extraction History of back surgery Acid reflux History of colonoscopy History of surgical removal of lesion Family History Mother Diabetes Father No problems noted. Social History Household Members: Spouse Housing: House Are you a primary plant care worker to a significant other at home: No Do you presently have visiting nurse or other home services: No 75 years or older and lives alone: No Alcohol intake: never Comment: counts correct Patient Tobacco Use Status: Former Tobacco user e-Cigarette/Vaping Use: Never Used service: No Current occupational status: retired Current occupation: rt handed Physical Exam Vital Signs: Last Vital Signs Pulse 70 08/15/25 09:47 BP 120/60 08/15/25 09:47 Pulse Ox 97 08/15/25 09:47 Oxygen Delivery Method Room Air 08/15/25 09:47 BMI result Body Mass Index 28.0 Const Other: General: Comfortable Skin: No lesions seen MSK: Tender to palpate left acromial region. His left acromial med is more prominent than the right. He also has tenderness along the anterior and posterior left shoulder. Normal range of motion of bilateral shoulders. He has positive painful arc sign left side. No joint swelling. Assessment & Plan Assessment & Plan (1) Left shoulder pain: Comment: Chronic. Progressing. He has localized pain to his left acromion, which is more prominent compared to the right. 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 We discussed conservative management. Code(s): M25.512 - Pain in left shoulder Category: Medical Plan: X-ray left shoulder ordered PT ordered Continue Tylenol 2 tablets OTC at bedtime or as needed throughout the day Return to clinic in 3 months (2) Gout: Comment: Controlled on allopurinol 100 mg daily. Uric acid at goal from May 2025. Code(s): M10.9 - Gout, unspecified Category: Medical Qualifiers: Chronicity: chronic Gout etiology: idiopathic Gout site: multiple sites Presence of tophus: without tophus Qualified Code(s): M1A.09X0 - Idiopathic chronic gout, multiple sites, without tophus (tophi) Plan: Continue allopurinol 100 mg daily Labs up-to-date Return to clinic in 1 year or sooner if needed Orders: Orders XR shoulder LT min 2V Today M25.512 - Pain in left shoulder PT Evaluation and Treatment Today M25.512 - Pain in left shoulder Coding Level of Care Code Est Pt Level 4 (86522) Add On Problem Visit Only Diagnoses Left shoulder pain M25.512 Idiopathic chronic gout of multiple sites without tophus M1A.09X0 Chronicity: chronic Gout etiology: idiopathic Gout site: multiple sites Presence of tophus: without tophus
== END 2025-08-15 10:39 | disposition home or self-care (01) ==
LOC: HO.RHES 09:33
PROVIDERS: PCP Internal Medicine Geriatric Medicine; Visit Provider Internal Medicine Rheumatology
DX: M25.512 Pain in left shoulder (principal); M1A.09X0 Idiopathic chronic gout, multiple sites, without tophus (tophi)
CPT/HCPCS: 99214; G2211

== ENCOUNTER → 2025-08-15 09:32 | Outpatient (BNVA) | payer OTHER, SELFPAY | PROVIDERS: PCP Internal Medicine Geriatric Medicine; Visit Provider Internal Medicine Rheumatology | DX: M1A.09X0 Idiopathic chronic gout, multiple sites, without tophus (tophi) (principal); M25.512 Pain in left shoulder; Z79.899 Other long term (current) drug therapy | CPT/HCPCS: 99212 ==

== ENCOUNTER 2025-08-20 10:18 | Outpatient (REF) | payer OTHER, SELFPAY ==
--- NOTE | ~2025-08-20 | XR_ITS ---
EXAMINATION: XR SHOULDER, LEFT CLINICAL INFORMATION: M25.512 - Pain in left shoulder COMPARISON: X-ray 11/21/2021 TECHNIQUE: AP external rotation, Grashey, scapular Y, and axillary views of the left shoulder. FINDINGS: Moderate acromioclavicular arthritis. Small corticated ossification superior to the joint. Mild-moderate glenohumeral arthritis. Superior subluxation of the humeral head, decrease in the subacromial subdeltoid space. This raises concern for rotator cuff pathology. No suspicious soft tissue calcification. XR/XR shoulder LT min 2V IMPRESSION: Superior subluxation of the humeral head, raising concern for rotator cuff pathology. Arthritis as described above. Electronically signed by: Denny Hussein MD 08/20/2025 02:44 PM JOHN
== END 2025-08-20 10:19 | disposition home or self-care (01) ==
LOC: HO.HMGCX 10:18
PROVIDERS: PCP Internal Medicine Geriatric Medicine; Visit Provider Internal Medicine Rheumatology
DX: M25.512 Pain in left shoulder (principal)
CPT/HCPCS: 73030

== ENCOUNTER → 2025-08-20 10:23 | Outpatient (BNV) | payer OTHER, SELFPAY | PROVIDERS: PCP Internal Medicine Geriatric Medicine; Visit Provider Radiology Diagnostic Ultrasound | DX: S43.082A Other subluxation of left shoulder joint, initial encounter (principal); M19.012 Primary osteoarthritis, left shoulder | CPT/HCPCS: 73030 ==

== ENCOUNTER 2025-08-29 08:01 | Outpatient (AMB) | payer OTHER, SELFPAY ==
--- OUTSIDE RECORDS SUMMARY | 2025-08-29 08:06 | XMS_ITS | Encounter Summary ---
Author Organization [employer] Address [address] [place] [address] 7t [place] [address] Care Team Providers Care Ingot Header Name Role Phone Name, Rodri WINN Primary Care Provider [phone] PuAna villegas PharmD Unavailable Reason for Visit * Reason Comments Med Refill Encounter Details Date Type Department Care Team (Late Contact Info) Description 04/13/2023 Refill [facility] MEDICINE [address] [place] [address] [phone] Name, MD Rodri [address] [place] [address] [phone] Social History Tobacco Use Types Packs/Day Years [...] Department Care Team (Late Contact Info) Description 09/04/2025 10:00 AM EST Medication Management [facility] MEDICINE [address] [place], [place] [phone] Puia, Ana, PharmD [address] [place], [place] [phone] 09/13/2025 11:00 AM EST Clinical Support [facility] DIABETES/NTRN [address] [place] [address] [place] [address] documented as of this encounter Visit Diagnoses Not on filedocumented in this encounter Care Teams Ingot Header Relationship Specialty Start Date End Date Name, MD Rodri [address] [place], [place] [phone] PCP - General Family Medicine 09/24/15 Ana Pavon PharmD [address] [place], [place] [phone] Pharmacist Internal Medicine 04/28/23 [facility] 09/01/24 documented as of this encounter
--- OUTSIDE RECORDS SUMMARY | 2025-08-29 08:06 | XMS_ITS | Encounter Summary ---
Author Organization [employer] Address [address] [facility] 7t [place] [address] Care Team Providers Care Invoice Classification Clerk Name Role Phone Name, Rodri WINN Primary Care Provider [phone] Ana Pavon PharmD Unavailable Reason for Visit * Reason Comments Med Refill Encounter Details Date Type Department Care Team (Late st Contact Info) Description 04/07/2023 Refill [facility] MEDICINE [address] [place], [place] [phone] Name, MD Rodri [address] [place] [address] Social History Tobacco Use Types Packs/Day Years [...] Care Team (Late st Contact Info) Description 09/04/2025 10:00 AM EST Medication Management [facility] MEDICINE [address] [place] [address] Ana Pavon PharmD [address] [place] [address] 09/13/2025 11:00 AM EST Clinical Support [facility] DIABETES/NTRN [address] [place] [address] Nguyen Ragsdale, RD [address] [place] [address] documented as of this encounter Visit Diagnoses Not on filedocumented in this encounter Care Teams Invoice Classification Clerk Relationship Specialty Start Date End Date Name, MD Rodri [address] [place] [address] PCP - General Family Medicine 09/24/15 Ana Pavon PharmD [address] [place] [address] Pharmacist Internal Medicine 04/28/23 [facility] 09/01/24 documented as of this encounter
--- OUTSIDE RECORDS SUMMARY | 2025-08-29 08:06 | XMS_ITS | Clinical Summary ---
Author Organization [employer] Address [address] [facility] [address] [place] [address] Care Team Providers Care Senior Software Architect Name Role Phone Name, Rodri WINN Primary Care Provider [phone] Ana Pavon PharmD Unavailable [phone] Allergies No known active allergies Medications [...] by mouth Once per day. 30 tablet 5 2:11 PM EST 08/29/20 24 026 Active Tirzepatide (Mounjaro) 5 MG/0.5ML solution auto-injectorInd ications:Type 2 diabetes mellitus with other specified complication, with long-term current use of insulin ([facility]) Inject 5 mg under the skin 1 (one) time per week. 2 mL 11 5 2:30 PM EST 08/29/20 24 Active aspirin 81 MG EC [...] by mouth Once daily. 90 tablet 3 5 2:21 PM EST 11/07/19 25 Active lisinopril 40 MG tabletIndication s:Type 2 diabetes mellitus with other specified complication, without long-term current use of insulin ([facility]),Essential hypertension Take 1 tablet (40 mg) by mouth Once per day. 30 tablet 11 5 2:11 PM EST 11/07/19 25 Active Multiple Vitamin (Multivitamin) tablet TAKE ONE TABLET EVERY MORNING 90 tablet 3 12/06/19 25 Active clotrimazole (Lotrimin) 1 % cream apply to the affected area(s) twice daily 11/07/19 25 Active insulin pen needle (Zimride Pen [place]) 32G x 4 mm miscIndications: Poorly controlled diabetes mellitus (HCC) USE ONE DAILY TO inject insulin 100 each 02/15/20 25 Active Continuous Glucose Massage Therapist (FreeStyle Grace 3 [place]) deviceIndication s:Type 2 diabetes mellitus with other [...] TABLET EVERY MORNING 90 tablet 1 06/08/20 Active baclofen (Lioresal) 10 MG tablet Take 0.5 tablets (5 mg) by mouth if needed in the morning, at noon, and at bedtime for muscle spasms. 40 tablet 1 06/11/20 25 Active Diclofenac Sodium 1 % gel Apply [...] or split. 60 tablet 1 06/11/20 25 Active busPIRone (Buspar) 5 MG tablet TAKE ONE TABLET THREE TIMES DAILY IN THE MORNING, AT NOON, AND AT BEDTIME 90 tablet 5 2:11 PM EST 08/22/20 25 Active busPIRone (Buspar) 5 MG tablet TAKE ONE TABLET THREE TIMES DAILY IN THE MORNING, AT NOON, AND AT BEDTIME 90 tablet 5 2:21 PM EST 07/25/20 25 025 Discontinued Active Problems Problem Noted [...] Encounters Date Type Department Care Team Description 08/21/[address] [facility] P[facility] [address] [place] [address] Rodri Lund MD 08/20/2025 Orders Only [facility] External Provider, [facility] 08/09/2025 10:30 AM EST Office Visit [facility] MEDICINE [address] [place] [phone] Rodri Lund MD Type 2 diabetes mellitus with other specified complication, without long-term current use of insulin (HCC) (Primary Dx); Encounter for immunization 08/09/2025 Travel 08/07/[address] [address] Rodri Lund MD Chart Prep 07/25/[address] [facility] [address] [place] [address] Rodri Lund MD 07/12/2025 10:00 AM EST Clinical Support [facility] DIABETES/NTRN [address] [place] [address] Type 2 diabetes mellitus with other specified complication, with long-term current use of insulin (HCC) (Primary Dx) 07/12/2025 Travel 07/05/2025 Orders Only GENERIC EXTERNAL DATA DEPARTMENT Provider, Generic External Data 06/26/[address] [facility]ED[facility] [address] [place] [address] Rodri Lund MD 06/20/2025 Travel 06/11/2025 11:20 AM EDT Office Visit [facility] WALK[facility]IN [facility] [address] [place] [phone] Kandy Villatoro DO Acute bilateral low back pain without sciatica (Primary Dx) 06/11/[address] [facility] WALKIN [address] [address] Kandy Villatoro DO 06/11/2025 Travel 06/08/[address] [facility] MEDICINE [address] [place] [phone] Rodri Lund MD 06/05/2025 Orders Only GENERIC EXTERNAL DATA DEPARTMENT Provider, Generic External Data from Last 3 Months Immunizations Immunization Administration Dates Next Due Hep B, adult 01/24/2015,10/18/2014,07/20/2014 Influenza High-dose Quadriva lent Preservative Free 06/11/2023,06/16/2022,06/24/2021 Influenza injectable quadriv alent IIV4 with preservative 08/11/2016 Influenza injectable quadriv alent preservative free 06/14/2019,06/15/2018,10/15/2015 Influenza, High Dose Seasona l, Preservative Free 08/09/2025,05/22/2024,06/10/2017 Influenza, IIV3, injectable 07/20/2014 Influenza, Split (incl. [...] housing situation today? I have merrill batres 08/09/[address] you li ve. Do you have problems with any of the following? Not on file 08/09/2025 Food Insecurity Answer Date Recorded Within the past 12 months, y ou worried that your food would run out before you got money to buy more: Sometimes True 2024 Within the past 12 months,th e food you bought just didn't last and you didn't have enough money to get more: Sometimes True 08/09/2025 Transportation Answer Date Recorded In the past 12 months, has l ack of transportation kept you from medical appts, meetings, work or from getting things needed for daily living? No 08/09/2025 Utilities Answer Date Recorded In the past 12 months, has t he electric, gas, oil or water company threatened to shut off services in your home? No 08/09/2025 Depression Answer Date Recorded Patient Health Questionnaire-2 Score 0 12/22/2024 Internet Access Answer Date Recorded Internet Access Q1 Yes 08/09/2025 Internet Access Q2 Not on file 08/09/2025 Sex and Gender Information Value Date Recorded Sex Assigned at Male 07/06/2022 10:18 AM EDT Legal Sex Male 10:18 AM EDT Gender Identity Male 07/06/2022 10:18 AM EDT Sexual Orientation Choose not to disclose 2021 10:18 AM EDT Last Filed Vital Signs Vital Sign Reading Time Taken Comments Blood Pressure 112/54 08/09/2025 10:31 AM EST Pulse 79 08/09/2025 10:31 AM EST Temperature 36.2 C (97.1 F) 08/09/2025 10:31 AM EST Respiratory Rate 12 08/09/2025 10:31 AM EST Oxygen Saturation 97% 08/09/2025 10:31 AM EST Inhaled Oxygen Concentration - - Weight 63.5 kg (140 lb) 08/09/2025 10:31 AM EST Height 152.4 cm (5') 07/17/2025 10:04 AM EST Body Mass Index 27.34 07/17/2025 10:04 AM EST Plan of Treatment Upcoming Encounters Date Type Department Care Team (Late st Contact Info) Description 09/04/2025 10:00 AM EST Medication Management [facility] MEDICINE [address] [place] [address] Ana Pavon, PharmD [address] [place] [address] 09/13/2025 11:00 AM EST Clinical Support [facility] DIABETES/NTRN [address] [facility] [place] [address] Nguyen Ragsdale, RD [address] [place] [address] Health Maintenance Due Date Last Done Comments CT Colonography 1945 FIT DNA/Cologuard 1945 FIT 1945 FOBT 1945 Sigmoidoscopy 1945 Dental Oral Exam 07/14/2024 01/11/2024 Dental Prophylaxis 07/14/2024 01/11/2024 SDOH Screening 10/15/2024 10/15/2023 Dental X-Ray: Bitewings 01/11/2025 01/11/2024 COVID-19 Vaccine ( season) 2025 05/26/2024, 06/17/2023, 06/16/2022, Additional history exists Lipid Panel 06/28/2025 06/28/2024, 0901/2023, 07/06/2022, Additional history exists Diabetes: Hemoglobin A1C 10/20/202504/19/ 025, 11/06/2024, 07/12/2024, Additional history exists Alcohol/Substance Use Screening 12/22/2025 12/22/2024 Depression Screening 12/22/2025 12/22/2024, 12/23/19 25 Diabetes: Foot Exam 12/22/2025 12/22/2024, 12/22/2024, 12/22/2024, Additional history exists Diabetes: Urine Protein Screening 01/01/2026 01/01/2025, 12/22/2024, 09/22/2023, Additional history exists Colonoscopy 01/20/2026 01/20/2023, 12/14/2022 Colorectal Cancer Screening 01/20/2026 Tobacco Screening 08/09/2026 08/09/2025 Dental X-Ray: Full Mouth 01/11/2027 01/11/2024 Eye Exam 02/02/2027 02/02/2025, 11/11/2022 DTaP/Tdap/Td Vaccines (3 - Td or Tdap) 01/06/2034 01/07/2024, 11/29/2013, 12/07/2006 Hepatitis B Vaccines Completed 01/24/2015, 10/18/2014, 07/20/2014 Pneumococcal Vaccine: 50+ Years Completed 11/16/2019, 05/01/2015, 12/07/2006 Hepatitis C Screening Completed 10/09/2020 Zoster Vaccines Completed 11/18/2022, 09/06, 11/29/2013 RSV Patients and Patients Aged 60 years or older Completed 08/16/2023 Influenza Vaccine Completed 08/09/2025, , 06/11/2023, Additional history exists HIB Vaccines Aged Out [...] 24H data. Check BG manually, as directed. Help patients manage their type 2 diabetes Care Plan Help patients manage their type 2 diabetes No Ana Pavon, PharmD Weekly blood pressure task Care Plan Weekly blood pressure task No Puia, Ana, PharmD Help patients manage their type 2 diabetes Care Plan Help patients manage their type 2 diabetes No Puia, Ana, PharmD Patient has chronic kidney disease Care Plan Patient has chronic kidney disease No Puia, Ana, PharmD Weekly blood pressure task Care Plan Weekly blood pressure task No Puia Ana, PharmD Patient has chronic kidney disease Care Plan Patient has chronic kidney disease No Puia Ana, PharmD Weekly blood pressure task Care Plan Weekly blood pressure task No Ann-Marie Partida MA Weekly blood pressure task Care Plan Weekly blood pressure task No Ann-Marie Partida MA Patient has chronic kidney disease Care Plan Patient has chronic kidney disease No Ann-Marie Partida MA Patient has chronic kidney disease Care Plan Patient has chronic kidney disease No Ann-Marie Partida MA Weekly blood pressure task Care Plan Weekly blood pressure task No Barber Wheeler MA Weekly blood pressure task Care Plan Weekly blood pressure task No Barber Wheeler MA Patient has chronic kidney disease Care Plan Patient has chronic kidney disease No Barber Wheeler MA Patient has chronic kidney disease Care Plan Patient has chronic kidney disease No Barber Wheeler MA Procedures Procedure Name Priority Date/Time Associated Diagnosis Comments XR SHOULDER 2+ VIEWS LEFT Routine 08/20/2025 10:26 AM EST POCT GLUCOSE (CPT-39771) Routine 08/09/2025 10:33 AM EST Type 2 diabetes mellitus with other specified complication, without long-term current use of insulin (HCC) TESTOSTERONE, FREE, BIOAVAILABLE AND TOTAL, MALES (ADULT), IA Routine 07/05/2025 10:54 AM EDT PSA, TOTAL Routine 07/05/2025 10:54 AM EDT CBC Routine 07/05/2025 10:54 AM EDT XR LUMBAR SPINE 2-3 VIEWS STAT 06/11/2025 12:00 PM EDT Acute bilateral low back pain without sciatica ALT Routine 06/05/2025 12:26 PM EDT AST Routine 06/05/2025 12:26 PM EDT POCT GLYCATED HEMOGLOBIN, TOTAL Routine 04/19/2025 1:23 PM EDT Type 2 diabetes mellitus with other specified complication, with long-term current use of insulin ([facility]) HM DIABETES EYE EXAM Routine 02/02/2025 ALBUMIN, RANDOM URINE W/CREATININE Routine 12/22/2024 12:17 PM EDT Type 2 diabetes mellitus with other specified complication, with long-term current use of insulin ([facility]) LIPID PANEL, STANDARD Routine 06/28/2024 9:45 AM EDT Type 2 diabetes mellitus with other specified complication, with long-term current use of insulin ([facility]) Full PROPHYLAXIS - ADULT [...] Relevant to Health Maintenance Results * XR Shoulder 2+ Views Left (08/20/2025 10:26 AM EST) Anatomical Region Laterality Modality Upper Extremities, Shoulder Left Radi ographic Imaging 08/20/2025 10:2 6 AM EST Narrative 08/20/2025 2:47 PM EST [facility] Adult Primary Care [address] [place] [address] XRay Report Signed Patient: Francisco Lorenzo MR#: [id number] : 1945 Acct:[id number] Age/Sex: 79 / M ADM Date: 08/20/25 Loc: HO.RICHARDX Attending Dr: Dat Leung MD Ordering Physician: Dat Leung MD Date of Service: 08/20/25 Procedure(s): XR shoulder LT min 2V Accession Number(s): [id number] cc: Name,Rodri WINN; Dat Leung MD Reason for Exam: M25.512 - Pain in left shoulder EXAMINATION: XR SHOULDER, LEFT CLINICAL INFORMATION: M25.512 - Pain in left shoulder COMPARISON: X-ray 11/21/2021 TECHNIQUE: AP external rotation, Grashey, scapular Y, and axillary views of the left shoulder. FINDINGS: Moderate acromioclavicular arthritis. Small corticated ossification superior to the joint. Mild-moderate glenohumeral arthritis. Superior subluxation of the humeral head, decrease in the subacromial subdeltoid space. This raises concern for rotator cuff pathology. No suspicious soft tissue calcification. XR/XR shoulder LT min 2V IMPRESSION: Superior subluxation of the humeral head, raising concern for rotator cuff pathology. Arthritis as described above. Electronically signed by: Denny Hussein MD 08/20/2025 02:44 PM EST Dictated By: Denny Hussein MD Signed By: <Electronically signed by Denny Hussein MD in OV> 08/20/25 1444 DD/ 1026 TD/TT: 08/20/25 1028 Diamond Die Polisher: Procedure Note Donotuseinterpreter, Image - 08/20/2025 [facility] Adult Primary Care [address] [place] [address] XRay Report Signed Patient: Francisco Lorenzo DMR#: [id number] : 1945cct:[id number] Age/Sex: 79 / MADM Date: 08/20/25 Loc: HO.HMGCX Attending Dr: Dat Leung MD Ordering Physician: Dat Leung MD Date of Service: 08/20/25 Procedure(s): XR shoulder LT min 2V Accession Number(s): [id number] cc: Rodri Lund MD; Dat Leung MD Reason for Exam: M25.512 - Pain in left shoulder EXAMINATION: XR SHOULDER, LEFT CLINICAL INFORMATION: M25.512 - Pain in left shoulder COMPARISON: X-ray 11/21/2021 TECHNIQUE: AP external rotation, Grashey, scapular Y, and axillary views of the left shoulder. FINDINGS: Moderate acromioclavicular arthritis. Small corticated ossification superior to the joint. Mild-moderate glenohumeral arthritis. Superior subluxation of the humeral head, decrease in the subacromial subdeltoid space. This raises concern for rotator cuff pathology. No suspicious soft tissue calcification. XR/XR shoulder LT min 2V IMPRESSION: Superior subluxation of the humeral head, raising concern for rotator cuff pathology. Arthritis as described above. Electronically signed by: Denny Hussein MD 08/20/2025 02:44 PM EST Dictated By: Denny Hussein MD Signed By: <Electronically signed by Denny Hussein MD in OV> 08/20/25 1444 DD/ 1026 TD/TT: 08/20/25 1028 Diamond Die Polisher: RENEA [facility] External Provider IMG XR PROCEDURES Final Result * POCT Glucose (08/09/2025 10:33 AM EST) Pathologist [facility] Glucose Blood, POC 140 60 - 200 mg/dL QC Media Lot # [id number] Lot# Expiration Date 16 Blood Capillary blood specimen / Unknown 08/09/2025 10:33 AM EST us Rodri Lund MD POINT OF CARE TEST ENTER/EDIT OR DERABLES Final Result * (ABNORMAL) CBC (07/05/2025 10:54 AM EDT) White Blood Count 8.4 4.8 - 10.8 X10*3/uL [facility] Red Blood Count 4.78 4.60 - 5.80 X10*6/uL [facility] Hemoglobin 13.5(L) 14.0 - 18.0 g/dl [facility] Hematocrit 40.7(L) 42.0 - 52.0 % [facility] Mean Corpuscular Volume 85.1 80.0 - 98.0 fL [facility] Mean Corpuscular Hemoglobin 28.2 27.0 - 33.0 pg [facility] Mean Corpuscular HGB Conc 33.2 31.0 - 36.0 g/dl [facility] Red Cell Distribution Width 14.8 11.0 - 16.0 % [facility] Platelet Count 268 160 - 400 X10*3/uL [facility] Mean Platelet Volume 10.5 9.4 - 12.4 fL [facility] NRBC Pct Auto 0.0 0.0 - 0.2 /100WBC [facility] NRBC Abs Auto 0.000 0.0 - 0.012 X10*3/uL [facility] 07/05/2025 10:5 4 AM EDT 07/05/2025 1:12 PM EDT us Generic External Data Provider LAB BLOOD ORDERAB LES Final Result [facility] [address] [place] [phone] * (ABNORMAL) Testosterone, Free (Dialysis) And Total, MS (07/05/2025 10:54 AM EDT) Testosterone, Total 185(A) 250 - 1100 ng/dL [facility] Comment:Men with clinically significant hypogonadalsymptoms and testosterone values repeatedly inthe range of the 200-300 ng/dL or less, maybenefit from testosterone treatment afteradequate risk and benefits counseling.For additional information, please refer [email or web address] Research/faq/[email or web address](This link is being provided for informational/educational purposes only.)This test was developed and its analytical performancecharacteristics have been determined by [employer]. It hasnot been cleared or approved by the U.S. Food and DrugAdministration. This assay has been validated pursuantto the CLIA regulations and is used for clinicalpurposes. Testosterone, Free 19.6(A) 30.0 - 135.0 pg/mL [facility] Comment:This test was develo ped and its analytical performancecharacteristics have been determined by [employer] [place], [place]. It hasnot been cleared or approved by the U.S. Food and DrugAdministration. This assay has been validated pursuantto the CLIA regulations and is used for clinicalpurposes.THIS TEST WAS PERFORMED AT:[employer] [place] [address]LNXTPHYDARIN FROST MD,PHD 07/05/2025 10:5 4 AM EDT 07/05/2025 1:12 PM EDT us Generic External Data Provider LAB BLOOD ORDERAB LES Final Result Performing Organization Address City/[facility]/ZIP Co de Phone Number [facility] [address] [place] [phone] * PSA,Total (07/05/2025 10:54 AM EDT) Prostate Specific Antigen 1.64 <0.05 - 4.0 ng/mL [facility] Comment:PSA methodology: Abb sirena Alinity i ChemiluminescentMicroparticle Immunoassay (CMIA) 07/05/2025 10:5 4 AM EDT 07/05/2025 1:12 PM EDT us Generic External Data Provider LAB BLOOD ORDERAB LES Final Result Performing Organization Address [facility]/ZIP Co de Phone Number [facility] [address] [place] [phone] * XR Lumbar Spine 2-3 Views (06/11/2025 12:00 PM EDT) Anatomical Region Laterality Modality Spine, L-spine Radiographic Elinor ging 06/11/2025 12:0 0 PM EDT Narrative 06/11/2025 12:12 PM EDT [facility] [address] [place] [address] XRay Report Signed Patient: Francisco Lorenzo MR#: [id number] : 1945 Acct:[id number] Age/Sex: 79 / M ADM Date: 06/11/25 Loc: HO.HHCX Attending Dr: Kandy Villatoro DO Ordering Physician: Kandy Villatoro DO Date of Service: 06/11/25 Procedure(s): XR lumbar spine 2-3V Accession Number(s): [id number] cc: Kandy Villatoro DO Reason for Exam: [...] 06/11/25 1209 DD/ 1200 TD/TT: 06/11/25 1203 Diamond Die Polisher: RENEA Procedure Note Donotuseinterpreter, Image - 06/11/2025 [facility] [address] [place] [address] XRay Report Signed Patient: Francisco Lorenzo DMR#: [id number] : 6Acct:[id number] Age/Sex: 79 / MADM Date: 06/11/25 [facility] Attending Dr: Kandy Villatoro DO Ordering Physician: Kandy Villatoro DO Date of Service: 06/11/25 Procedure(s): XR lumbar spine 2-3V Accession Number(s): [id number] cc: Kandy Villatoro DO Reason for Exam: [...] 06/11/25 1209 DD/ 1200 TD/TT: 06/11/25 1203 Diamond Die Polisher: RENEA Kandy Villatoro DO IMG XR PROCEDURES Final Resu lt * ALT (06/05/2025 12:26 PM EDT) Alanine Aminotransferase 32 0 - 40 U/L [facility] 06/05/2025 12:2 6 PM EDT 06/05/2025 1:09 PM EDT Generic External Data Provider LAB BLOOD ORDERAB LES Final Result Performing Organization Address City/[facility]/ZIP Co de Phone Number [facility] [address] [place] [phone] * AST (06/05/2025 12:26 PM EDT) Aspartate Amino Transferase 37 5 - 37 U/L [facility] 06/05/2025 12:2 6 PM EDT 06/05/2025 1:09 PM EDT Generic External Data Provider LAB BLOOD ORDERAB LES Final Result Performing Organization Address City/[facility]/ZIP Co de Phone Number [facility] [address] [place] [phone] * (ABNORMAL) POCT HGB A1C (04/19/2025 1:23 PM EDT) Hemoglobin A1C 6.6(A) 4.0 - 5.7 % QC Media Lot # [id number] Blood 04/19/2025 1:23 PM EDT us Rodri Lund MD POINT OF CARE TEST ENTER/EDIT OR DERABLES Final Result * Hm Diabetes Eye Exam (02/02/2025) Eye Exam Normal Normal 02/02/2025 us Rodri Lund MD HEALTH MAINTENANCE Final Result * (ABNORMAL) Albumin, Random Urine W/Creatinine (12/22/2024 12:17 PM EDT) Creatinine, Urine 166.04 mg/dL [facility] Microalbumin Urine 159.0 mg/L [facility] Microalbum Creatinine Ratio Ur 95.7(H) <30 ug/mg cr [facility] Comment:Albumin/Creatinine R atio Reference Ranges: Normal: < 30 ug/mg creatinine Microalbuminuria: 30 - 300 ug/mg creatinineClinical Albuminuria: > 300 ug/mg creatinine Urine (Urine, Random) 12/22/2024 12:17 PM EDT 12/22/2024 1:00 PM EDT us Rodri Lund MD LAB URINE ORDERABLES Final Resul t Performing Organization Address City/[facility] Co de Phone Number [facility] [address] [place] [address] [phone] * (ABNORMAL) Lipid Panel, Standard (06/28/2024 9:45 AM EDT) Triglycerides 161(H) <150 mg/dL [facility] Comment:Desirable Triglyceri de: less than 150 mg/dLBorderline High Triglyceride 150-199 mg/dLHigh Triglyceride: 200-499 mg/dLVery High Triglyceride: greater than or equal to 5OO mg/dL Cholesterol 177 <200 mg/dL [facility] Comment:Desirable Cholestero l: less than 200 mg/dLBorderline High Cholesterol: 200-239 mg/dLHigh Cholesterol: greater than 239 mg/dL LDL Cholesterol Calculated 107(H) <100 mg/dL [facility] Comment:Desirable LDL: less than 100 mg/dLNear Optimal/Above Optimal LDL: 110- 129 mg/dLBorderline High LDL: 130-159 mg/dLHigh LDL: 160-189 mg/dLVery High LDL: greater than or equal to 190 mg/dL HDL Cholesterol 38(L) >40 mg/dL [facility] Comment:Desirable HDL: great er than 40 mg/dL Note: This HDL assay may give artificially low results in patients with liver disease. Blood Venous blood specimen / Unknown 06/28/2024 9:45 AM EDT 06/28/2024 11:12 AM EDT us Rodri Lund MD LAB BLOOD ORDERABLES Final Resul t [facility] [address] [place] [phone] * (ABNORMAL) Hm Colonoscopy (01/20/2023 1:46 [...] ORDERABLE LABS Final Result Performing Organization Address City/[facility]/ZIP Co de Phone Number [facility] [address] from Last 3 Months or Most Recently Relevant to Health Maintenance Additional Health Concerns Active Problems Noted Date Diagnosed Date Help patients manage their type 2 diabetes 07/18 Weekly blood pressure task 07/18/2025 Help patients manage their type 2 diabetes 07/18 Patient has chronic kidney disease 07/18/2025 Weekly blood pressure task 07/18/2025 Patient has chronic kidney disease 07/18/2025 Weekly blood pressure task 08/07/2025 Weekly blood pressure task 08/07/2025 Patient has chronic kidney disease 08/07/2025 Patient has chronic kidney disease 08/07/2025 Weekly blood pressure task 08/09/2025 Weekly blood pressure task 08/09/2025 Patient has chronic kidney disease 08/09/2025 Patient has chronic kidney disease 08/09/2025 Insurance [facility] [employer] (HMO D-SNP) LEONID FERNANDO [id number] Care Teams Senior Software Architect Relationship Specialty Start Date End Date Name, MD Rodri [address] [place] [address] PCP - General Family Medicine 09/24/15 Ana Pavon, PharmD [address] [place] [address] Pharmacist Internal Medicine 04/28/23 [facility] 09/01/24
--- OUTSIDE RECORDS SUMMARY | 2025-08-29 08:06 | XMS_ITS | Encounter Summary ---
Author Organization [employer] Address 75 [facility] 7t [place] [address] Care Team Providers Care Miner Operator Name Role Phone Name, Rodri WINN Primary Care Provider [phone] Ana Pavon PharmD Unavailable [phone] Encounter Details Date Type Department Care Team (Latest Contact Info) Description 06/25/2022 Abstract [facility] CONVERSIONS Dental, Provider, DDS Social [...] Description 09/04/2025 10:00 AM EST Medication Management [facility] MEDICINE [address] [place] [address] Ana Pavon, PharmD [address] [place] [address] 09/13/2025 11:00 AM EST Clinical Support [facility] CHC DIABETES/NTRN [address] [place] [address] [place] [address] documented as of this encounter Visit Diagnoses Not on filedocumented in this encounter Care Teams Miner Operator Relationship Specialty Start Date End Date Name, MD Rodri [address] [place] [address] PCP - General Family Medicine 09/24/15 Ana Pavon, Mary [address] [place] [address] [phone] Pharmacist Internal Medicine 04/28/23 [facility] 09/01/24 documented as of this encounter
--- OUTSIDE RECORDS SUMMARY | 2025-08-29 08:06 | XMS_ITS | Encounter Summary ---
Author Organization [employer] Address 75 [facility] 7t [place] [address] Care Team Providers Care Rocket Assembly Operator Name Role Phone Name, Rodri WINN Primary Care Provider [phone] Ana Pavon PharmD Unavailable Reason for Visit * Reason Onset Date Comments Appointment Request 03/06/2025 Encounter Details Date Type Department Care Team ([facility] Contact Info) Description 03/06/2025 Telephone [facility] MEDICINE [address] [place], [place] [phone] Name, MD Rodri [address] [place] [address] Appointment Request Social History Tobacco Use Types [...] Description 09/04/2025 10:00 AM EST Medication Management [facility] MEDICINE [address] [place] [address] Ana Pavon PharmD [address] [place] [address] 09/13/2025 11:00 AM EST Clinical Support [facility] CHC DIABETES/NTRN [address] [place] [address] [place] [address] documented as of this encounter Goals Goal [...] documented as of this encounter Care Teams Rocket Assembly Operator Relationship Specialty Start Date End Date Name, MD Rodri [address] [place] [address] PCP - General Family Medicine 09/24/15 Ana Pavon, Mary [address] [place] [address] Pharmacist Internal Medicine 04/28/23 [facility] 09/01/24 documented as of this encounter
--- OUTSIDE RECORDS SUMMARY | 2025-08-29 08:06 | XMS_ITS | Encounter Summary ---
Author Organization [employer] Address 75 [facility] 7t [place] [address] Care Team Providers Care Simulation Developer Name Role Phone Name, Rodri WINN Primary Care Provider Ana Pavon PharmD Unavailable [phone] Reason for Visit * Reason Comments Med Refill Encounter Details Date Type Department Care Team ([facility] Contact Info) Description 03/24/2023 Refill [facility] MEDICINE [address] [place] [address] [phone] Name, MD Rodri [address] [place] [phone] Social History Tobacco Use Types Packs/Day Years [...] Description 09/04/2025 10:00 AM EST Medication Management [facility] MEDICINE [address] [place] [address] Ana Pavon PharmD [address] [place] [address] 09/13/2025 11:00 AM EST Clinical Support [facility] CHC DIABETES/NTRN [address] [place], [place] [phone] Nguyen Ragsdale, ALDO [address] [place] [address] documented as of this encounter Visit Diagnoses Not on filedocumented in this encounter Care Teams Simulation Developer Relationship Specialty Start Date End Date Name, MD Rodri [address] [place] [address] [phone] PCP - General Family Medicine 09/24/15 Ana Pavon PharmD [address] [place] [address] [phone] Pharmacist Internal Medicine 04/28/23 [facility] 09/01/24 documented as of this encounter
--- OUTSIDE RECORDS SUMMARY | 2025-08-29 08:06 | XMS_ITS | Encounter Summary ---
Author Organization [employer] Address 75 [facility] 7t [place] [address] Care Team Providers Care Bus Inspector Name Role Phone Name, Rodri WINN Primary Care Provider [phone] Ana Pavon PharmD Unavailable [phone] Reason for Visit * Reason Comments Med Refill Encounter Details Date Type Department Care Team ([facility] st Contact Info) Description 01/15/2025 Refill [facility] MEDICINE [address] [place], [place] [phone] Name, MD Rodri 230 [place] [address] Social History Tobacco Use Types Packs/Day Years [...] Description 09/04/2025 10:00 AM EST Medication Management [facility] MEDICINE [address] [place] [address] Ana Pavon, PharmD [address] [place] [address] 09/13/2025 11:00 AM EST Clinical Support [facility] CHC DIABETES/NTRN 505 [place], [place] [phone] Nguyen R[address] [place] [address] documented as of this encounter Goals Goal Patient Goal Type Associated Problems Recent Progress Patient-Stated? Author Hemoglobin A1c < 7.5 Result Component 6.6( 5 1:23 PM EDT) No PuiaDavidAna, PharmD Record [...] documented as of this encounter Care Teams Bus Inspector Relationship Specialty Start Date End Date Name, MD Rodri [address] [place], [place] [phone] PCP - General Family Medicine 09/24/15 Ana Pavon, Mary [address] [place] [address] [place], [place] [phone] Pharmacist Internal Medicine 04/28/23 [facility] 09/01/24 documented as of this encounter
--- OUTSIDE RECORDS SUMMARY | 2025-08-29 08:06 | XMS_ITS | Encounter Summary ---
Author Organization [employer] Address 75 [facility] 7t [place] [address] Care Team Providers Care Life Skills Educator Name Role Phone Name, Rodri WINN Primary Care Provider [phone] Ana Pavon PharmD Unavailable [phone] Reason for Visit * Reason Comments Med Refill Encounter Details Date Type Department Care Team (Late st Contact Info) Description 11/19/2023 Refill [facility] MEDICINE [address] [place], [place] [phone] Name, MD Rodri [address] [place] [address] Social History Tobacco Use Types Packs/Day Years [...] Description 09/04/2025 10:00 AM EST Medication Management [facility] MEDICINE 230 [place] [address] Ana aPvon, PharmD 230 [place] [address] 09/13/2025 11:00 AM EST Clinical Support [facility] CHC DIABETES/NTRN 505 [place], [place] [phone] Nguyen R[address] [place] [address] documented as of this encounter Goals Goal Patient Goal Type Associated Problems Recent Progress Patient-Stated? Author Hemoglobin A1c < 7.5 Result Component 6.6( 1:23 PM EDT) No UrsulaiaDavidAna, PharmD Record your blood sugar as directed [...] documented as of this encounter Care Teams Life Skills Educator Relationship Specialty Start Date End Date Name, MD Rodri [address] [place] [phone] PCP - General Family Medicine 09/24/15 Ana Pavon, Mary [address] [place] [address] [phone] Pharmacist Internal Medicine 04/28/23 [facility] 09/01/24 documented as of this encounter
--- OUTSIDE RECORDS SUMMARY | 2025-08-29 08:06 | XMS_ITS | Encounter Summary ---
Author Organization [employer] Address 75 [facility] 7t [place] [address] Care Team Providers Care Medical Billing And Coding Specialist Name Role Phone Name, Rodri WINN Primary Care Provider [phone] Ana Pavon PharmD Unavailable [phone] Encounter Details Date Type Department Care Team (Latest Contact Info) Description 02/25/[address] [facility] CONVERSIONS Dental, Provider, DDS Social [...] AM EST Medication Management [facility] MEDICINE [address] [place] [address] Ana Pavon, PharmD 230 [place] [address] 09/13/2025 11:00 AM EST Clinical Support [facility] CHC DIABETES/NTRN [address] [place] [address] [place] [address] documented as of this encounter Visit Diagnoses Not on filedocumented in this encounter Care Teams Medical Billing And Coding Specialist Relationship Specialty Start Date End Date Name, MD Rodri [address] [place] [address] PCP - General Family Medicine 09/24/15 Ana Pavon, Mary [address] [place] [address] [phone] Pharmacist Internal Medicine 04/28/23 [facility] 09/01/24 documented as of this encounter
--- OUTSIDE RECORDS SUMMARY | 2025-08-29 08:06 | XMS_ITS | Encounter Summary ---
Author Organization [employer] Address 75 [facility] 7t [place] [address] Care Team Providers Care Hog Man Name Role Phone Name, Rodri WINN Primary Care Provider [phone] Ana Pavon PharmD Unavailable [phone] Reason for Visit * Reason Comments Med Refill Encounter Details Date Type Department Care Team ([facility] st Contact Info) Description 06/23/2024 Refill [facility] MEDICINE [address] [place], [place] [phone] Name, MD Rodri [address] [place] [address] Social History Tobacco Use Types Packs/Day Years [...] 09/04/2025 10:00 AM EST Medication Management [facility] MEDICINE [address] [place] [address] Ana Pavon, PharmD [address] [place] [address] 09/13/2025 11:00 AM EST Clinical Support [facility] CHC DIABETES/NTRN [address] [place], [place] [phone] Nguyen R[address] [place] [address] documented as of this encounter Goals Goal [...] documented as of this encounter Care Teams Hog Man Relationship Specialty Start Date End Date Name, MD Rodri [address] [place] [phone] PCP - General Family Medicine 09/24/15 Ana Pavon, Mary [address] [place] [address] [phone] Pharmacist Internal Medicine 04/28/23 [facility] 09/01/24 documented as of this encounter
--- OUTSIDE RECORDS SUMMARY | 2025-08-29 08:06 | XMS_ITS | Encounter Summary ---
Author Organization [employer] Address 75 [facility] 7t [place] [address] Care Team Providers Care Cushion Cover Inspector Name Role Phone Name, Rodri WINN Primary Care Provider [phone] Ana Pavon PharmD Unavailable [phone] Encounter Details Date Type Department Care Team (Latest Contact Info) Description 08/23/2019 Abstract [facility] CONVERSIONS Dental, Provider, DDS Social History Tobacco [...] Description 09/04/2025 10:00 AM EST Medication Management [facility] MEDICINE [address] [place] [address] Ana Pavon, PharmD [address] [place] [address] 09/13/2025 11:00 AM EST Clinical Support [facility] CHC DIABETES/NTRN [address] [place] [address] [place] [address] documented as of this encounter Visit Diagnoses Not on filedocumented in this encounter Care Teams Cushion Cover Inspector Relationship Specialty Start Date End Date Name, MD Rodri [address] [place] [address] PCP - General Family Medicine 09/24/15 Ana Pavon, Mary [address] [place] [phone] Pharmacist Internal Medicine 04/28/23 [facility] 09/01/24 documented as of this encounter
--- NOTE | 2025-08-29 08:27 | MHC.OFFVIS ---
Intake Visit Reasons: 3m/labs/UA Intake Note: Patient is present for 3M/LABS/UA PSA:1.64 TT:185 FT:19.6 Urology Medication:TERAZOSIN,TESTOSTERONE,ALLOPURINOL Antibiotic Allergy:NONE Blood Thinner:ASPIRIN Marketing Project Manager Required: Yes Marketing Project Manager Services: Marketing Project Manager Present Marketing Project Manager Name: Marquis [id number] Allergies No Known Allergies Allergy (Verified 08/29/25 08:52) Medication List - Last Reconciled 08/29/25 by SWETA Fam- allopurinol 100 mg PO QAM amlodipine 52 mg PO DAILY aspirin 81 mg PO DAILY blood sugar diagnostic As directed buspirone 5 mg PO TID docusate sodium (Colace) 200 mg (2 x 100 mg) PO BEDTIME empagliflozin (Jardiance) 10 mg PO DAILY ferrous sulfate 325 mg PO QAM flash glucose sensor (FreeStyle Grace 2 Sensor kit) As directed insulin degludec (Tresiba FlexTouch U-100 insulin) 14 units subcut BEDTIME lisinopril 40 mg PO DAILY meclizine 25 mg PO TID PRN multivitamin 1 tab PO QAM omeprazole 20 mg PO DAILY 90 days pravastatin 20 mg PO DAILY terazosin 5 mg PO BEDTIME 90 days testosterone 4 pumps topical DAILY 30 days tirzepatide (Mounjaro) 5 mg subcut .QMONDAY HPI Comments Details: Francisco is a pleasant 79 year old Romanian speaking male patient of Dr. Lund. He has a past medical history of acid reflux, chronic constipation, diabetes, depression, normocytic anemia, and rheumatoid arthritis. He presents to the office today for follow-up regarding his hypogonadism and benign prostatic hyperplasia. In discussion with the patient today reports to be doing and feeling well. He reports compliance with testosterone however is utilizing 2 pumps daily. We did discuss discussion during last office visit with recommendations to increase pumps as testosterone remains low. Recent labs were reviewed with the patient today as noted and trended below. We discussed continuation of borderline low testosterone levels. We did discussed further treatment options and risks and benefits of these treatment options. All questions were answered. He reports no bothersome urinary issues or concerns at this time. In office urinalysis results reviewed with the patient today. Discussed at length importance of compliance and appropriate use. We also discussed importance of management and diabetes for improvement in lower urinary tract symptoms as well as overall health and well-being. He otherwise offers no other issues or concerns at this time. Testosterone: 12/24 155, 02/23 124, 04/25 78, 06/25 495, 10/27 458, 09/27 125, 02/25 156, 09/28 381, 04/28 144, 08/28 142, 12/28 175, 04/29 154, 08/29 139, 12/29 279, 03/30 243, 06/30 185 Free testosterone: 02/25 30.4, 04/28 30.5, 08/28 32.1, 12/28 37.3, 04/29 26.6, 08/29 29.3, 12/29 65.4, 03/30 47.1, 08/30 19.6 H/H: 11/26 13.9/41.9, 05/29 14.6/45.8, 05/29 14.2/44.4, 08/28 12.9/39.5, 12/28 14.7/44.9, 02/27 13.6/40.4, 04/29 13.7/42.0, 08/29 13.3/40.8,12/29 13.8/42.3, 03/30 12.9/39.7, 13.5/40.7 PSA: 02/24 2.2, 09/27 1.7, 04/28 3.0, 12/28 1.8, 08/29 1.5, 12/29 2.6, 03/30 1.6, 06/30 1.6 PFSH Medical History Urinary incontinence Chronic constipation Diabetes COVID-19 vaccine series started History of depression Ambulates with cane Eosinophilia Leukocytosis Rheumatoid arthritis Normocytic anemia Surgical History Hx of umbilical hernia repair History of esophagogastroduodenoscopy (EGD) History of cataract extraction History of back surgery Acid reflux History of colonoscopy History of surgical removal of lesion Family History Mother Diabetes Father No problems noted. Social History Household Members: Spouse Housing: House Are you a primary summer child caregiver to a significant other at home: No Do you presently have visiting nurse or other home services: No 75 years or older and lives alone: No Alcohol intake: never Comment: counts correct Patient Tobacco Use Status: Former Tobacco user e-Cigarette/Vaping Use: Never Used service: No Current occupational status: retired Current occupation: rt handed Review of Systems Const Reports as per [facility] Eyes Reports no additional complaints ENT Reports no additional complaints Card Reports as per [facility] Resp Reports no additional complaints GI Reports as per HPI Reports as per HPI Neuro Reports as per [facility] Psych Reports as per HPI Endo Reports no additional complaints Physical Exam Const General: cooperative, healthy appearing, comfortable, no acute distress, well developed, alert and awake Orientation/consciousness: patient oriented x3 Limitations: language barrier HEENT Head: Yes normal to inspection, Yes normocephalic and Yes atraumatic Ears: hearing grossly normal bilaterally Eyes General: appearance normal, both eyes and all related structures Neck Neck: Yes normal visual inspection and Yes trachea midline Chest Chest palpation & inspection: normal inspection of the chest Resp Effort & Inspection: normal respiratory effort and able to speak in complete sentences Cardio Rate: regular rate GI Inspection: Yes normal to inspection General: Yes no CVA tenderness Back/Spine/Pelvis Back: no CVA tenderness Skin General skin exam: no rashes or lesions noted Neuro General: patient oriented x3 Extrem General: Yes normal to inspection Psych Appearance: grossly normal and well kempt Mental Status: mental status grossly normal Speech and movement: Normal speech and movement present and Clear speech present Affect: normal affect Attitude: cooperative Thought process: Normal thought process present Thought content: Normal thought content present Insight: Fair insight present (Psych) Judgement: Fair judgement present (Psych) Results AMB Urinalysis, Automated UA Leukoctes 0 Gab/uL Last Edit by LAZARUS Calderon on 08/29/25 08:44 UA Nitrite Negative Last Edit by LAZARUS Calderon on 08/29/25 08:44 UA Urobilinogen 0.2 mg/dL Last Edit by LAZARUS Calderon on 08/29/25 08:44 UA Protein 15 mg/dL Last Edit by LAZARUS Calderon on 08/29/25 08:44 UA pH 6.0 Last Edit by LAZARUS Calderon on 08/29/25 08:44 UA Blood 0 Alf/uL Last Edit by LAZARUS Calderon on 08/29/25 08:44 UA Specific [place] 1.015 Last Edit by LAZARUS Calderon on 08/29/25 08:44 UA Ketone Negative Last Edit by LAZARUS Calderon on 08/29/25 08:44 UA Bilirubin 0 mg/dL Last Edit by LAZARUS Calderon on 08/29/25 08:44 UA Glucose 1000 mg/dL Last Edit by LAZARUS Calderon on 08/29/25 08:44 Results Reviewed Results Reviewed: Laboratory Last Values Urine pH (Auto) 6.0 08/29/25 08:43 Specific [place] (Auto) 1.015 08/29/25 08:43 Urine Protein (Auto) 15 mg/dL 08/29/25 08:43 Glucose (UA)(Auto) 1000 mg/dL 08/29/25 08:43 Urine Ketones (Auto) Negative 08/29/25 08:43 Urine Blood (Auto) 0 Alf/uL 08/29/25 08:43 Urine Nitrite (Auto) Negative 08/29/25 08:43 Urine Bilirubin (Auto) 0 mg/dL 08/29/25 08:43 Urine Urobilinogen (Auto) 0.2 mg/dL 08/29/25 08:43 Leukocyte Esterase (Auto) 0 Gab/uL 08/29/25 08:43 Assessment & Plan Assessment & Plan (1) BPH (benign prostatic hyperplasia): Code(s): N40.0 - Benign prostatic hyperplasia without lower urinary tract symptoms Category: Medical (2) Lower urinary tract symptoms: Code(s): R39.9 - Unspecified symptoms and signs involving the genitourinary system Category: Medical (3) Hypogonadism in male: Code(s): E29.1 - Testicular hypofunction Category: Medical Plan In office urinalysis results reviewed with the patient today; as noted above. Most recent hemoglobin, hematocrit, PSA, testosterone, and free testosterone results reviewed with the patient today; as noted above. He currently denies any bothersome urinary issues or concerns. He reports be happy with current voiding parameters. We did discuss hypogonadism as well as further treatment options and risks and benefits of these treatment options. All questions were answered. We did discuss proper use of testosterone; we discussed increase in dose Will obtain CBC, PSA, free testosterone, and testosterone in 3 months. Follow-up in 3 months with labs; or sooner with any issues, concerns, and or questions. Orders: Orders AMB Urinalysis Automated Today Z13.9 - Encounter for screening, unspecified Medications: Refilled testosterone This is an increase in dosage 4 pumps topical DAILY 2 grams 3RF 30 days E29.1 - Testicular hypofunction Patient Instructions: The patient had an opportunity to ask questions regarding the treatment plan. All questions were answered. Physical exam, labs, and imaging were discussed and reviewed in detail. As well as risks, benefits, and discussion of treatment choices. No major barriers to understanding were identified. The patient expressed understanding and agreement with the above treatment plan. The patient was made aware they should contact our office by phone for worsening of their current condition, the appearance of new symptoms, or with any questions or concerns. Compliance is encouraged with any medications and follow up testing that is ordered. It is a privilege to be allowed the opportunity to participate in? your urological care.? Again, if you have any questions or concerns If you have any questions or concerns please do not hesitate to contact me. The office is [phone]. This note is constructed using voice recognition software. While every effort has been made to ensure accuracy pals nurse errors may have been included. Yours sincerely, BETSY Fam Coding Level of Care Code Est Pt Level 3 (79609) Add On Problem Visit Only Diagnoses BPH (benign prostatic hyperplasia) N40.0 Lower urinary tract symptoms R39.9 Hypogonadism in male E29.1
== END 2025-08-29 09:02 | disposition home or self-care (01) ==
LOC: HO.HUSH 08:02
PROVIDERS: Visit Provider Nurse Practitioner Family
DX: N40.0 Benign prostatic hyperplasia without lower urinary tract symptoms (principal); R39.9 Unspecified symptoms and signs involving the genitourinary system; E29.1 Testicular hypofunction; Z13.9 Encounter for screening, unspecified
CPT/HCPCS: 99213; G2211

== ENCOUNTER → 2025-08-29 08:01 | Outpatient (BNVA) | payer OTHER, SELFPAY | PROVIDERS: Visit Provider Nurse Practitioner Family | DX: N40.1 Benign prostatic hyperplasia with lower urinary tract symptoms (principal); R39.9 Unspecified symptoms and signs involving the genitourinary system; E29.1 Testicular hypofunction; E11.9 Type 2 diabetes mellitus without complications; Z79.4 Long term (current) use of insulin | CPT/HCPCS: 81003; 99212 ==